=== PATIENT | female | born 1940 | race Caucasian/White ===

== ENCOUNTER 2020-02-20 12:20 | Outpatient (REF) | payer MEDICARE, OTHER, SELFPAY ==
[2020-02-20 14:02] LABS: Albumin Level 4.1 g/dL (3.5-5.0); Calcium 9.9 mg/dL (8.4-10.2)
[2020-02-20 14:30] LABS: Free T4 (Free Thyroxine) 1.21 ng/dL (0.71-1.85); Thyroid Stimulating Hormone 0.34 mIU/mL (0.32-4.0); Vitamin D 25-OH Total 48.7 ng/mL (>30)
[2020-02-21 22:52] LABS: Triiodothyronine T3 Total 104 ng/dL (76-181)
[2020-02-22 21:07] LABS: Calcium (PTHI) 9.9 mg/dL (8.6-10.4); PTHI 36 pg/mL (14-64)
[2020-02-29 21:56] LABS: N-Telopeptide 42 (see note); NTXCreaRU 55 mg/dL (20-275)
== END 2020-02-20 12:21 | disposition home or self-care (01) ==
LOC: HO.HMGCLDS 12:20
PROVIDERS: PCP Internal Medicine; Visit Provider Internal Medicine Endocrinology, Diabetes & Metabolism
DX: R79.89 Other specified abnormal findings of blood chemistry (principal); E05.20 Thyrotoxicosis with toxic multinodular goiter without thyrotoxic crisis or storm; Z87.81 Personal history of (healed) traumatic fracture
CPT/HCPCS: 82040; 82306; 82310; 82523; 83970; 84439; 84443; 84480

== ENCOUNTER 2020-03-06 10:59 | Outpatient (REF) | payer MEDICARE, OTHER, SELFPAY ==
[2020-03-06 13:53] LABS: MANUAL DIFF FLAG NO
[2020-03-06 14:03] LABS: Basophils Absolute Auto 0.1 X10*3/uL (0.0-0.2); Basophils Percent Auto 0.6 % (0-2); Eosinophils Absolute Auto 0.3 X10*3/uL (0.0-0.4); Eosinophils Percent Auto 3.9 % (0-4); Hematocrit 41.2 % (37-47); Hemoglobin 13.1 g/dl (12.0-16.0); Imm Gran Abs Auto 0.05 X10*3/uL (0.00-0.03); Imm Gran Pct Auto 0.6 % (0.0-0.4); Lymphocytes Absolute Auto 0.9 X10*3/uL (1.2-4.9); Lymphocytes Percent Auto 10.7 % (20-40); Mean Corpuscular HGB Conc 31.8 g/dl (31.0-35.0); Mean Corpuscular Hemoglobin 28.3 pg (27.0-33.0); Mean Platelet Volume 8.8 fL (9.4-12.3); Monocytes Absolute Auto 0.5 X10*3/uL (0.1-1.2); Monocytes Percent Auto 6.2 % (2-11); Neutrophils Absolute Auto 6.8 X10*3/uL (2.0-8.3); Platelet Count 360 X10*3/uL (160-400); Red Blood Count 4.63 X10*6/uL (4.20-5.50); Red Cell Distribution Width 13.9 % (11.0-16.0); White Blood Count 8.8 X10*3/uL (4.8-10.8)
[2020-03-06 14:33] LABS: Alanine Aminotransferase 10 U/L (0-31); Albumin Level 4.1 g/dL (3.5-5.0); Alkaline Phosphatase 76 U/L (39-117); Anion Gap 17 (12-20); Aspartate Amino Transferase 9 U/L (5-31); Bilirubin Total 0.3 mg/dL (0.0-1.0); Blood Urea Nitrogen 23 mg/dL (9-16); Calcium 9.9 mg/dL (8.4-10.2); Carbon Dioxide 23 mmol/L (22-29); Chloride 106 mmol/L (96-108); Cholesterol 153 mg/dL; Estimated Glomerular Filt Rate 45; Glucose Fasting 110 mg/dL (60-99); HDL Cholesterol 40 mg/dL; LDL Cholesterol Calculated 92 mg/dl; Potassium 4.5 mmol/l (3.3-5.1); Sodium 141 mmol/L (135-145); Total Protein 7.2 g/dL (6.5-8.0); Triglycerides 105 mg/dL
[2020-03-06 14:39] LABS: Glucose Urine UA NEG (NEG); Leukocyte Esterase Urine NEG (NEG); Nitrite Urine NEG (NEG); Urine Blood NEG (NEG); Urine Ketones NEG (NEG); Urine Protein NEG (NEG-TRACE)
[2020-03-06 14:42] LABS: Appearance Urine HAZY; Color Urine YELLOW; UACC Culture Trigger NO
[2020-03-06 14:43] LABS: Creatinine Urine 43.38 mg/dL; Microalbum/Creatinine Ratio Ur 161.3 ug/mg cr
[2020-03-06 14:49] LABS: Uric Acid 7.7 mg/dL (2.4-5.7)
[2020-03-06 14:55] LABS: Free T4 (Free Thyroxine) 1.11 ng/dL (0.71-1.85); Thyroid Stimulating Hormone 0.34 mIU/mL (0.32-4.0); Vitamin D 25-OH Total 45.3 ng/mL (>30)
[2020-03-06 15:13] LABS: Bacteria Urine 1+ /LPF; RBC Urine 0 /HPF (0); Squamous Epithelial Cell Urine 2+ /LPF; WBC Urine 0 /HPF (0-4)
[2020-03-06 15:14] LABS: Amorphous Sediment Urine 2+ /LPF
== END 2020-03-06 11:00 | disposition home or self-care (01) ==
LOC: HO.HMGCLDS 10:59
PROVIDERS: PCP Internal Medicine; Visit Provider Internal Medicine
DX: E11.22 Type 2 diabetes mellitus with diabetic chronic kidney disease (principal); I12.9 Hypertensive chronic kidney disease with stage 1 through stage 4 chronic kidney disease, or unspecified chronic kidney disease; N18.30 Chronic kidney disease, stage 3 unspecified; E78.5 Hyperlipidemia, unspecified; E83.42 Hypomagnesemia; M10.9 Gout, unspecified; E04.2 Nontoxic multinodular goiter; I49.1 Atrial premature depolarization; I47.1 Supraventricular tachycardia; E66.9 Obesity, unspecified
CPT/HCPCS: 36415; 80053; 80061; 81001; 81003; 82043; 82306; 83735; 84439; 84443; 84550; 85025

== ENCOUNTER 2020-04-15 16:54 | Outpatient (REF) | payer MEDICARE, OTHER, SELFPAY ==
--- NOTE | 2020-04-15 16:58 | MM_ITS ---
EXAMINATION: MM SCREENING DIGITAL BREAST TOMOSYNTHESIS, BILATERAL CLINICAL INFORMATION: Screening. Asymptomatic. The lifetime risk of breast cancer based on the Tyrer-Cuzick Model is 2%. COMPARISON: Mammography: 02/09/2019, 12/10/2017, 11/16/2016, 09/17/2015, 08/01/2014 TECHNIQUE: Digital breast tomosynthesis is performed in both the craniocaudal and mediolateral oblique views along with computer-aided detection (CAD). Synthesized 2D images are generated from the tomosynthesis. FINDINGS: There are scattered areas of fibroglandular density (ACR BI-RADS breast composition Category b). Parenchymal pattern is similar to prior studies. 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 Neither breast shows interval mass or architectural abnormality. There are scattered benign round and coarse and vascular calcifications again seen. Biopsy clip marker again noted mid upper outer left breast. No significant changes from prior studies. MM/MM tomosynthesis screening BI IMPRESSION: No significant changes from prior studies. ASSESSMENT: BI-RADS 2: Benign RECOMMENDATION: Routine annual mammography screening. This patient's information was entered into a reminder system with a target due date for their next mammogram.
== END 2020-04-15 16:55 | disposition home or self-care (01) ==
LOC: HO.MAMMO 16:54
PROVIDERS: PCP Internal Medicine; Visit Provider Internal Medicine
DX: Z12.31 Encounter for screening mammogram for malignant neoplasm of breast (principal)
CPT/HCPCS: 77063; 77067

== ENCOUNTER → 2020-05-29 13:27 | Outpatient (BNVA) | payer MEDICARE, OTHER, SELFPAY | PROVIDERS: PCP Internal Medicine; Visit Provider Internal Medicine | DX: J44.9 Chronic obstructive pulmonary disease, unspecified (principal); J30.9 Allergic rhinitis, unspecified | CPT/HCPCS: 99212 ==

== ENCOUNTER 2020-06-10 10:54 | Outpatient (REF) | payer MEDICARE, OTHER, SELFPAY ==
[2020-06-10 13:58] LABS: MANUAL DIFF FLAG NO
[2020-06-10 14:01] LABS: Basophils Absolute Auto 0.1 X10*3/uL (0.0-0.2); Basophils Percent Auto 0.8 % (0-2); Eosinophils Absolute Auto 0.4 X10*3/uL (0.0-0.4); Eosinophils Percent Auto 5.8 % (0-4); Hematocrit 40.1 % (37-47); Hemoglobin 12.7 g/dl (12.0-16.0); Imm Gran Abs Auto 0.02 X10*3/uL (0.00-0.03); Imm Gran Pct Auto 0.3 % (0.0-0.4); Lymphocytes Absolute Auto 0.8 X10*3/uL (1.2-4.9); Lymphocytes Percent Auto 11.9 % (20-40); Mean Corpuscular HGB Conc 31.7 g/dl (31.0-35.0); Mean Corpuscular Hemoglobin 27.7 pg (27.0-33.0); Mean Corpuscular Volume 87.4 fL (80-98); Mean Platelet Volume 8.7 fL (9.4-12.3); Monocytes Absolute Auto 0.6 X10*3/uL (0.1-1.2); Monocytes Percent Auto 8.8 % (2-11); Neutrophils Absolute Auto 5.1 X10*3/uL (2.0-8.3); Neutrophils Percent Auto 72.4 % (45-73); Platelet Count 429 X10*3/uL (160-400); Red Blood Count 4.59 X10*6/uL (4.20-5.50); Red Cell Distribution Width 14.3 % (11.0-16.0); White Blood Count 7.1 X10*3/uL (4.8-10.8)
[2020-06-10 14:14] LABS: Glucose Urine UA NEG (NEG); Leukocyte Esterase Urine NEG (NEG); Nitrite Urine NEG (NEG); PH 8.5 (5.0-8.0); Urine Blood NEG (NEG); Urine Ketones NEG (NEG)
[2020-06-10 14:21] LABS: Appearance Urine HAZY; Color Urine YELLOW; Urine Protein 1+ MG/DL (NEG-TRACE)
[2020-06-10 14:28] LABS: Amorphous Sediment Urine 1+ /LPF; Bacteria Urine 1+ /LPF; Mucus Urine 1+ /LPF; RBC Urine 0 /HPF (0); Squamous Epithelial Cell Urine 1+ /LPF; WBC Urine 0 /HPF (0-4)
[2020-06-10 14:39] LABS: Creatinine Urine 98.27 mg/dL; Microalbum/Creatinine Ratio Ur 215.7 ug/mg cr
[2020-06-10 14:41] LABS: Alanine Aminotransferase 10 U/L (0-31); Albumin Level 4.1 g/dL (3.5-5.0); Alkaline Phosphatase 76 U/L (39-117); Anion Gap 17 (12-20); Aspartate Amino Transferase 7 U/L (5-31); Bilirubin Total 0.4 mg/dL (0.0-1.0); Blood Urea Nitrogen 21 mg/dL (9-16); Carbon Dioxide 23 mmol/L (22-29); Chloride 104 mmol/L (96-108); Cholesterol 161 mg/dL; Estimated Glomerular Filt Rate 48; Glucose Fasting 116 mg/dL (60-99); HDL Cholesterol 36 mg/dL; LDL Cholesterol Calculated 103 mg/dl; Magnesium 1.9 mg/dL (1.6-2.6); Potassium 4.7 mmol/l (3.3-5.1); Sodium 139 mmol/L (135-145); Total Protein 7.2 g/dL (6.5-8.0); Triglycerides 112 mg/dL
[2020-06-10 14:46] LABS: Vitamin D 25-OH Total 42.5 ng/mL (>30)
[2020-06-10 14:53] LABS: Thyroid Stimulating Hormone 0.37 uIU/mL (0.32-4.0)
[2020-06-10 15:23] LABS: T4 Thyroxine 8.9 ug/dL (4.5-12.0)
[2020-06-11 13:57] LABS: Triiodothyronine T3 Total 113 ng/dL (76-181)
== END 2020-06-10 10:55 | disposition home or self-care (01) ==
LOC: HO.HMGCLDS 10:54
PROVIDERS: Absent Provider Internal Medicine Endocrinology, Diabetes & Metabolism; PCP Internal Medicine; Visit Provider Internal Medicine
DX: E05.20 Thyrotoxicosis with toxic multinodular goiter without thyrotoxic crisis or storm (principal); K21.9 Gastro-esophageal reflux disease without esophagitis; D64.9 Anemia, unspecified; I12.9 Hypertensive chronic kidney disease with stage 1 through stage 4 chronic kidney disease, or unspecified chronic kidney disease; E11.22 Type 2 diabetes mellitus with diabetic chronic kidney disease; N18.30 Chronic kidney disease, stage 3 unspecified; E78.00 Pure hypercholesterolemia, unspecified; E83.42 Hypomagnesemia; E55.9 Vitamin D deficiency, unspecified
CPT/HCPCS: 36415; 80053; 80061; 81001; 81003; 82043; 82306; 83735; 84436; 84443; 84480; 85025

== ENCOUNTER → 2020-06-12 11:32 | Outpatient (BNVA) | payer MEDICARE, OTHER, SELFPAY | PROVIDERS: PCP Internal Medicine; Visit Provider Internal Medicine Endocrinology, Diabetes & Metabolism | DX: Z13.89 Encounter for screening for other disorder (principal) | CPT/HCPCS: Q3014 ==

== ENCOUNTER 2020-06-17 12:38 | Outpatient (REF) | payer MEDICARE, OTHER, SELFPAY ==
--- NOTE | 2020-06-17 13:52 | MHC.AU.P13 ---
Adult Audiological Evaluation Date of Visit: 06/17/20 Reason for Appointment: History of hearing loss. Patient arrives to determine if there has been a change in hearing. Previous Hearing Test Results: At Dr. 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 Patient reports that she has been told in the past she has COPD, but her physician is now suspecting her breathing problems could be due to allergies/congestion. Hearing Instrument History- Right Ear: Candy Cutter Hand: [employer] Model: Immunomeelinkedü M50-R Serial Number: [id number] Battery Size: Rechargeable Repair Warranty: 05/14/2022 Loss and Damage Warranty: 05/14/2022 Dispensed By: [facility] Date of Fittin02/23/2019 Hearing Instrument History- Left Ear: Candy Cutter Hand: [employer] Model: Immunomeeo M50-R Serial Number: [id number] Battery Size: Rechargeable Warranty: 05/14/2022 Loss and Damage Warranty: 05/14/2022 Dispensed By: [facility] Date of Fittin02/23/2019 Otoscopy: Right Ear: Dry skin in canal Left Ear: Dry skin in canal Tympanometry: Tympanometry performed due to: History of allergies/congestion Right Ear: Non-compliant Middle Ear System (Type B) Left Ear: Negative Middle Ear Pressure (Type C) Hearing Evaluation: Right Ear: Description of Hearing: Moderate to severe mixed hearing loss Left Ear: Description of Hearing: Mild to profound mixed hearing loss Speech Recognition Threshold (SRT): Method Used: Recorded Lists Stimuli Used: Spondee Words Right Ear: 45 dBHL Left Ear: 45 dBHL Word Discrimination: Method: Recorded Lists Word Lists Used: NU-6 Right Ear: 96% at 85 dBHL Left Ear: 88% at 80 dBHL Most Comfortable Level (MCL): Right Ear: 85 dBHL Left Ear: 80 dBHL Aided Testing: Aided word discrimination is 100% at 55 dBHL in quiet and 88% at 55 dBHL in noise (+10 [id number] ratio) Comparison: Compared to most recent evaluation: Bone conduction thresholds are stable; however, air conduction thresholds have decreased in the right ear. Patient reports significant congestion today. We therefore cannot yet determine if this is a temporary shift due to congestion, or a permanent change. Recommendations: Audiological re-evaluation in one year. Patient reports that when the COVID-19 pandemic is under more control, she is considering going back to Dr. Watkins's office for allergy treatment. This is highly recommended, as it appears the congestion is negatively impacting her hearing. Hearing aid maintenance performed. Patient is pleased with how the hearing aids currently sound. No programming adjustments were made today, because it is likely the change in hearing in the right ear could be temporary and related to congestion. Patient did not want to activate the manual volume control on her hearing aids at this time. Diagnosis: Primary Diagnosis: H90.6 Mixed Hearing Loss, Bilateral Services Performed: Comprehensive Audiological Evaluation (CPT 58408), Tympanometry (CPT 85525) Signature: Provider: Ta Sadler, CCC-A
== END 2020-06-17 12:39 | disposition home or self-care (01) ==
LOC: HO.SH 12:38
PROVIDERS: Visit Provider Internal Medicine
DX: H90.6 Mixed conductive and sensorineural hearing loss, bilateral (principal)
CPT/HCPCS: 92557; 92567

== ENCOUNTER 2020-09-18 10:38 | Outpatient (REF) | payer MEDICARE, OTHER, SELFPAY ==
[2020-09-18 13:57] LABS: MANUAL DIFF FLAG NO
[2020-09-18 14:09] LABS: Basophils Percent Auto 0.3 % (0-2); Eosinophils Absolute Auto 0.4 X10*3/uL (0.0-0.4); Eosinophils Percent Auto 5.2 % (0-4); Glucose Urine UA NEG (NEG); Hematocrit 31.7 % (37-47); Hemoglobin 9.7 g/dl (12.0-16.0); Imm Gran Abs Auto 0.04 X10*3/uL (0.00-0.03); Imm Gran Pct Auto 0.5 % (0.0-0.4); Leukocyte Esterase Urine NEG (NEG); Lymphocytes Absolute Auto 0.8 X10*3/uL (1.2-4.9); Lymphocytes Percent Auto 9.5 % (20-40); Mean Corpuscular HGB Conc 30.6 g/dl (31.0-35.0); Mean Corpuscular Hemoglobin 27.2 pg (27.0-33.0); Mean Corpuscular Volume 88.8 fL (80-98); Mean Platelet Volume 8.7 fL (9.4-12.3); Monocytes Absolute Auto 0.6 X10*3/uL (0.1-1.2); Monocytes Percent Auto 7.9 % (2-11); Neutrophils Percent Auto 76.6 % (45-73); Nitrite Urine NEG (NEG); Platelet Count 331 X10*3/uL (160-400); Red Blood Count 3.57 X10*6/uL (4.20-5.50); Red Cell Distribution Width 14.6 % (11.0-16.0); Urine Blood NEG (NEG); Urine Ketones NEG (NEG); Urine Protein TRACE MG/DL (NEG-TRACE); White Blood Count 7.9 X10*3/uL (4.8-10.8)
[2020-09-18 14:14] LABS: Appearance Urine HAZY; Color Urine YELLOW
[2020-09-18 14:29] LABS: Alanine Aminotransferase 8 U/L (0-31); Alkaline Phosphatase 83 U/L (39-117); Anion Gap 13 (12-20); Aspartate Amino Transferase 7 U/L (5-31); Bilirubin Total 0.5 mg/dL (0.0-1.0); Blood Urea Nitrogen 17 mg/dL (9-16); Carbon Dioxide 25 mmol/L (22-29); Chloride 108 mmol/L (96-108); Cholesterol 153 mg/dL; Estimated Glomerular Filt Rate 51; Glucose Fasting 111 mg/dL (60-99); HDL Cholesterol 34 mg/dL; Iron 37 mcg/dL (30-160); LDL Cholesterol Calculated 84 mg/dl; Magnesium 1.6 mg/dL (1.6-2.6); Percent Iron Saturation 11 % (15-50); Potassium 4.3 mmol/L (3.3-5.1); Sodium 142 mmol/L (135-145); Total Iron Binding Capacity 331 mcg/dL (228-428); Total Protein 6.7 g/dL (6.5-8.0); Triglycerides 175 mg/dL; Unsaturated Iron Binding 294 ug/dL; Uric Acid 6.3 mg/dL (2.4-5.7)
[2020-09-18 14:41] LABS: Creatinine Urine 103.14 mg/dL; Microalbum/Creatinine Ratio Ur 120.2 ug/mg cr
[2020-09-18 14:50] LABS: TSH reflex Free T4 0.32 uIU/mL (0.32-4.0)
== END 2020-09-18 10:39 | disposition home or self-care (01) ==
LOC: HO.HMGCLDS 10:38
PROVIDERS: PCP Internal Medicine; Visit Provider Internal Medicine
DX: D64.9 Anemia, unspecified (principal); I12.9 Hypertensive chronic kidney disease with stage 1 through stage 4 chronic kidney disease, or unspecified chronic kidney disease; N18.31 Chronic kidney disease, stage 3a; E11.22 Type 2 diabetes mellitus with diabetic chronic kidney disease; E11.21 Type 2 diabetes mellitus with diabetic nephropathy; E04.2 Nontoxic multinodular goiter; E66.9 Obesity, unspecified; E78.00 Pure hypercholesterolemia, unspecified; I47.1 Supraventricular tachycardia; E83.42 Hypomagnesemia; M10.9 Gout, unspecified
CPT/HCPCS: 36415; 80053; 80061; 81003; 82043; 82306; 83540; 83735; 84443; 84550; 85025

== ENCOUNTER 2020-11-20 14:24 | Outpatient (REF) | payer MEDICARE, OTHER, SELFPAY ==
--- NOTE | ~2020-11-20 | US_ITS ---
EXAMINATION: US THYROID CLINICAL INFORMATION: Nodular goiter. Thyrotoxicosis. COMPARISON: Ultrasound thyroid soft tissue neck 07/03/2019. TECHNIQUE: Linear transducer dean-scale and color Doppler examination with attention to the region of the thyroid. FINDINGS: SIZE: Measurements of the thyroid lobes and nodules are given in sagittal, anteroposterior and transverse dimensions respectively. Right Thyroid Lobe: 4.84 x 1.84 x 1.71 cm, volume 7.97 mL. Previously 5.10 x 1.78 x 1.74 cm, volume 8.25 mL. Parenchyma: The gland echotexture is heterogeneous. Thyroid vascularity is normal. Left Thyroid Lobe: 4.70 x 1.64 x 1.42 cm, volume 5.74 mL. Previously 4.76 x 1.68 x 1.55 cm, volume 6.48 mL. Parenchyma: The gland echotexture is heterogeneous. Thyroid vascularity is normal. Isthmus: 0.60 cm in maximum AP dimension. Previously 0.65 cm. Estimated total number of nodules greater than or equal to 1 cm: 3. The 5 largest nodules are described as follows: 1. Location: Isthmus. Size: 0.70 x 0.50 x 1.1 cm, volume 0.20 mL. Previously: 0.70 x 0.40 0 x 0.78 cm, volume 0.11 mL. Nodule characteristics: Composition: Spongiform (0). Echogenicity: Shape: Margins: Echogenic Foci: ACR TI-RADS total points: 0 Previous: Not applicable. ACR TI-RADS category: 1 Previous: Not applicable Significant change in size (>/= 20% in 2 dimensions and minimal increase of 2 mm or 50% or greater increase in volume): Change in features: Change in ACR TI-RADS risk category: 2. Location: Right mid. Size: 1.1 x 1.3 x 1.2 cm, volume 0.90 mL. Previously: 0.74 x 0.70 x 0.80 cm, volume 0.22 mL. Nodule characteristics: Composition: Cystic(0). Echogenicity: Shape: Margins: Echogenic Foci: ACR TI-RADS total points: 0 Previous: Not applicable ACR TI-RADS category: 1 Previous: Not applicable Significant change in size (>/= 20% in 2 dimensions and minimal increase of 2 mm or 50% or greater increase in volume): Change in features: Change in ACR TI-RADS risk category: 3. Location: Right lower. Size: 1.4 x 1.3 x 1.5 cm, volume 1.4 mL. Previously: 1.3 x 1.3 x 1.3 cm, volume 1.1 mL. Nodule characteristics: Composition: Solid (2). Echogenicity: Hyperechoic (1). Shape: Not taller than wide (0). Margins: Smooth (0). Echogenic Foci: None (0). ACR TI-RADS total points: 3 Previous: Not applicable ACR TI-RADS category: 3 Previous: Not applicable Significant change in size (>/= 20% in 2 dimensions and minimal increase of 2 mm or 50% or greater increase in volume): Change in features: Change in ACR TI-RADS risk category: 4. Location: Right lower. Size: 1.2 x 1.3 x 1.2 cm, volume 1.0 mL. Previously: 1.5 x 1.4 x 1.3 cm, volume 0.50 mL. Nodule characteristics: Composition: Solid (2). Echogenicity: Hypoechoic (2) Shape: Not taller than wide Margins: Smooth (0). Echogenic Foci: None (0). ACR TI-RADS total points: 4 Previous: Not applicable ACR TI-RADS category: 4 Previous: Not applicable Significant change in size (>/= 20% in 2 dimensions and minimal increase of 2 mm or 50% or greater increase in volume): Change in features: Change in ACR TI-RADS risk category: 5. Location: Left lower. Size: 0.71 x 0.63 x 0.62 cm, volume 0.15 mL. Previously: Not seen previously Nodule characteristics: Composition: Cystic(0). Echogenicity: Shape: Margins: Echogenic Foci: ACR TI-RADS total points: 0 Previous: Not applicable ACR TI-RADS category: 1 Previous: Not applicable NODES: No lymphadenopathy is seen in the tissue surrounding the thyroid gland. US/US thyroid IMPRESSION: Normal-sized heterogeneous thyroid gland with multiple bilateral thyroid nodules. There is a newly appreciated left inferior thyroid nodule. There is interval increase in a cystic nodule in the mid right lobe. Otherwise bilateral thyroid nodules do not appear appreciably changed. ACR TI-RADS RECOMMENDATION REFERENCE: Ultrasound-guided fine-needle aspiration, followup ultrasound, no further follow up. * TR1 (0 point) and TR 2 (2 points): No FNA or follow up * TR3 (3 points): FNA if more than or equal to 2.5 cm in maximum dimension, followup ultrasound in 1, 3 and 5 years if 1.5 to 2.4 cm in maximum dimension. * TR4 (4-6 points): FNA if more than or equal to 1.5 cm in maximum dimension, followup ultrasound in 1, 2, 3 and 5 years if 1 to 1.4 cm in maximum dimension. * TR5 (more than or equal to 7 points): FNA if more than or equal to 1 cm in maximum dimension, followup ultrasound every year for 5 years if 0.5 to 0.9 cm in maximum dimension. * TR3, TR4 or TR5 nodules that are below the size threshold for follow up receive no follow up.
== END 2020-11-20 14:25 | disposition home or self-care (01) ==
LOC: HO.HMGCX 14:24
PROVIDERS: PCP Internal Medicine; Visit Provider Internal Medicine Endocrinology, Diabetes & Metabolism
DX: E05.20 Thyrotoxicosis with toxic multinodular goiter without thyrotoxic crisis or storm (principal)
CPT/HCPCS: 76536

== ENCOUNTER → 2020-11-26 13:30 | Outpatient (BNVA) | payer MEDICARE, OTHER, SELFPAY | PROVIDERS: PCP Internal Medicine; Visit Provider Internal Medicine | DX: Z13.89 Encounter for screening for other disorder (principal) | CPT/HCPCS: 99212; Q3014 ==

== ENCOUNTER 2021-01-27 10:57 | Outpatient (REF) | payer MEDICARE, OTHER, SELFPAY ==
[2021-01-27 13:59] LABS: MANUAL DIFF FLAG NO
[2021-01-27 14:07] LABS: Appearance Urine CLEAR; Basophils Percent Auto 0.4 % (0-2); Color Urine YELLOW; Eosinophils Absolute Auto 0.4 X10*3/uL (0.0-0.4); Eosinophils Percent Auto 5.8 % (0-4); Glucose Urine UA NEG (NEG); Hematocrit 28.2 % (37-47); Hemoglobin 7.7 g/dl (12.0-16.0); Imm Gran Abs Auto 0.03 X10*3/uL (0.00-0.03); Imm Gran Pct Auto 0.4 % (0.0-0.4); Leukocyte Esterase Urine 1+ (NEG); Lymphocytes Absolute Auto 0.7 X10*3/uL (1.2-4.9); Lymphocytes Percent Auto 8.9 % (20-40); Mean Corpuscular HGB Conc 27.3 g/dl (31.0-35.0); Mean Corpuscular Hemoglobin 21.6 pg (27.0-33.0); Mean Platelet Volume 8.6 fL (9.4-12.3); Monocytes Absolute Auto 0.6 X10*3/uL (0.1-1.2); Neutrophils Absolute Auto 5.8 X10*3/uL (2.0-8.3); Neutrophils Percent Auto 76.5 % (45-73); Nitrite Urine NEG (NEG); Platelet Count 415 X10*3/uL (160-400); Red Blood Count 3.57 X10*6/uL (4.20-5.50); Red Cell Distribution Width 17.2 % (11.0-16.0); Specific Gravity - Urine 1.015 (1.005-1.025); UACC Culture Trigger YES; Urine Blood NEG (NEG); Urine Ketones NEG (NEG); Urine Protein NEG (NEG-TRACE); White Blood Count 7.6 X10*3/uL (4.8-10.8)
[2021-01-27 14:24] LABS: Alanine Aminotransferase 6 U/L (0-31); Albumin Level 4.1 g/dL (3.5-5.0); Alkaline Phosphatase 71 U/L (39-117); Anion Gap 16 (12-20); Aspartate Amino Transferase 8 U/L (5-31); Bilirubin Total 0.4 mg/dL (0.0-1.0); Blood Urea Nitrogen 21 mg/dL (9-16); Calcium 10.3 mg/dL (8.4-10.2); Carbon Dioxide 22 mmol/L (22-29); Chloride 108 mmol/L (96-108); Cholesterol 144 mg/dL; Estimated Glomerular Filt Rate 46; Glucose Fasting 107 mg/dL (60-99); HDL Cholesterol 35 mg/dL; Iron 27 mcg/dL (30-160); LDL Cholesterol Calculated 90 mg/dl; Percent Iron Saturation 7 % (15-50); Potassium 4.8 mmol/L (3.3-5.1); Sodium 141 mmol/L (135-145); Total Iron Binding Capacity 376 mcg/dL (228-428); Total Protein 6.7 g/dL (6.5-8.0); Triglycerides 96 mg/dL; Unsaturated Iron Binding 349 ug/dL
[2021-01-27 14:26] LABS: Estimated Average Glucose 91 mg/dL; Hemoglobin A1c % 4.8 %
[2021-01-27 14:28] LABS: Bacteria Urine 2+ /LPF; RBC Urine 0-2 /HPF (0); Squamous Epithelial Cell Urine 3+ /LPF
[2021-01-27 14:31] LABS: Creatinine Urine 95.45 mg/dL; Microalbum/Creatinine Ratio Ur 47.1 ug/mg cr
[2021-01-27 14:57] LABS: Folate 11.7 ng/mL (> or = 4.0); Vitamin B12 > 2000 pg/mL (200-900)
[2021-01-28 09:40] LABS: Erythropoietin (EPO) 65.5 mIU/mL (2.6-18.5)
== END 2021-01-27 10:58 | disposition home or self-care (01) ==
LOC: HO.HMGCLDS 10:57
PROVIDERS: PCP Internal Medicine; Visit Provider Internal Medicine
DX: I12.9 Hypertensive chronic kidney disease with stage 1 through stage 4 chronic kidney disease, or unspecified chronic kidney disease (principal); E11.22 Type 2 diabetes mellitus with diabetic chronic kidney disease; N18.31 Chronic kidney disease, stage 3a; D63.1 Anemia in chronic kidney disease; E78.00 Pure hypercholesterolemia, unspecified; E11.21 Type 2 diabetes mellitus with diabetic nephropathy; K21.9 Gastro-esophageal reflux disease without esophagitis; I73.9 Peripheral vascular disease, unspecified
CPT/HCPCS: 36415; 80053; 80061; 81001; 81003; 82043; 82607; 82668; 82746; 83036; 83540; 85025; 87086

== ENCOUNTER 2021-02-04 08:53 | Outpatient (REF) | payer MEDICARE, OTHER, SELFPAY | END 2021-02-04 08:54 | disposition home or self-care (01) | LOC: HO.MDS 08:53 | PROVIDERS: Visit Provider Nurse Practitioner Family | DX: D64.9 Anemia, unspecified (principal) | CPT/HCPCS: 36430; 86850; 86900; 86901; 86923; P9016 ==

== ENCOUNTER 2021-03-03 08:00 | Outpatient (REF) | payer MEDICARE, OTHER, SELFPAY | END 2021-03-03 08:01 | disposition home or self-care (01) | LOC: HO.MDS 08:00 | PROVIDERS: PCP Internal Medicine; Visit Provider Internal Medicine | DX: D50.9 Iron deficiency anemia, unspecified (principal) | CPT/HCPCS: 96365; 96366; J1200; J1750; Q0163 ==

== ENCOUNTER 2021-03-11 11:43 | Outpatient (REF) | payer MEDICARE, OTHER, SELFPAY ==
[2021-03-11 13:44] LABS: MANUAL DIFF FLAG NO
[2021-03-11 13:55] LABS: Basophils Percent Auto 0.3 % (0-2); Eosinophils Absolute Auto 0.3 X10*3/uL (0.0-0.4); Eosinophils Percent Auto 3.7 % (0-4); Hematocrit 29.9 % (37-47); Hemoglobin 8.8 g/dl (12.0-16.0); Imm Gran Abs Auto 0.06 X10*3/uL (0.00-0.03); Imm Gran Pct Auto 0.7 % (0.0-0.4); Lymphocytes Absolute Auto 0.7 X10*3/uL (1.2-4.9); Lymphocytes Percent Auto 7.4 % (20-40); Mean Corpuscular HGB Conc 29.4 g/dl (31.0-35.0); Mean Corpuscular Hemoglobin 25.7 pg (27.0-33.0); Mean Corpuscular Volume 87.2 fL (80-98); Mean Platelet Volume 8.6 fL (9.4-12.3); Monocytes Absolute Auto 0.7 X10*3/uL (0.1-1.2); Monocytes Percent Auto 7.9 % (2-11); Neutrophils Absolute Auto 7.1 X10*3/uL (2.0-8.3); Platelet Count 406 X10*3/uL (160-400); Red Blood Count 3.43 X10*6/uL (4.20-5.50); Red Cell Distribution Width 22.9 % (11.0-16.0); White Blood Count 8.9 X10*3/uL (4.8-10.8)
== END 2021-03-11 11:44 | disposition home or self-care (01) ==
LOC: HO.10HDL 11:43
PROVIDERS: Visit Provider Internal Medicine
DX: D50.9 Iron deficiency anemia, unspecified (principal)
CPT/HCPCS: 36415; 85025

== ENCOUNTER 2021-03-14 | Outpatient (REF) | payer MEDICARE, OTHER, SELFPAY ==
[2021-03-19 14:07] LABS: OBS1 POSITIVE (NEGATIVE); OBS2 POSITIVE (NEGATIVE)
[2021-03-19 14:08] LABS: OBS Int Ctl Valid YES; OBS3 POSITIVE (NEGATIVE)
== END 2021-03-14 00:01 | disposition home or self-care (01) ==
LOC: HO.LNP
PROVIDERS: Visit Provider Internal Medicine
DX: D50.9 Iron deficiency anemia, unspecified (principal)
CPT/HCPCS: 82270

== ENCOUNTER → 2021-04-01 13:12 | Outpatient (BNVA) | payer MEDICARE, OTHER, SELFPAY | PROVIDERS: PCP Internal Medicine; Visit Provider Internal Medicine | DX: J44.9 Chronic obstructive pulmonary disease, unspecified (principal); J30.9 Allergic rhinitis, unspecified; I12.9 Hypertensive chronic kidney disease with stage 1 through stage 4 chronic kidney disease, or unspecified chronic kidney disease; N18.30 Chronic kidney disease, stage 3 unspecified; E83.42 Hypomagnesemia; M85.80 Other specified disorders of bone density and structure, unspecified site; F41.8 Other specified anxiety disorders; Z87.891 Personal history of nicotine dependence; Z82.49 Family history of ischemic heart disease and other diseases of the circulatory system; Z88.0 Allergy status to penicillin; Z91.041 Radiographic dye allergy status; Z79.84 Long term (current) use of oral hypoglycemic drugs; Z79.899 Other long term (current) drug therapy | CPT/HCPCS: 99212 ==

== ENCOUNTER 2021-04-03 11:19 | Outpatient (REF) | payer MEDICARE, OTHER, SELFPAY ==
[2021-04-03 13:45] LABS: MANUAL DIFF FLAG NO
[2021-04-03 13:58] LABS: Basophils Percent Auto 0.7 % (0-2); Eosinophils Absolute Auto 0.3 X10*3/uL (0.0-0.4); Eosinophils Percent Auto 4.9 % (0-4); Hematocrit 28.8 % (37.0-47.0); Hemoglobin 8.5 g/dl (12.0-16.0); Imm Gran Abs Auto 0.03 X10*3/uL (0.00-0.03); Imm Gran Pct Auto 0.5 % (0.0-0.4); Lymphocytes Absolute Auto 0.7 X10*3/uL (1.2-4.9); Lymphocytes Percent Auto 11.4 % (20-40); Mean Corpuscular HGB Conc 29.5 g/dl (31.0-35.0); Mean Corpuscular Hemoglobin 26.6 pg (27.0-33.0); Mean Platelet Volume 8.5 fL (9.4-12.3); Monocytes Absolute Auto 0.6 X10*3/uL (0.1-1.2); Monocytes Percent Auto 9.2 % (2-11); Neutrophils Absolute Auto 4.4 x10*3/uL (2.0-8.3); Neutrophils Percent Auto 73.3 % (45-73); Platelet Count 391 X10*3/uL (160-400); Red Cell Distribution Width 19.1 % (11.0-16.0)
[2021-04-03 14:03] LABS: Appearance Urine CLEAR; Color Urine YELLOW; Glucose Urine UA NEG (NEG); Leukocyte Esterase Urine 1+ (NEG); Nitrite Urine NEG (NEG); Specific Gravity - Urine 1.015 (1.005-1.025); UACC Culture Trigger YES; Urine Blood 1+ (NEG); Urine Ketones NEG (NEG); Urine Protein NEG (NEG-TRACE)
[2021-04-03 14:23] LABS: Squamous Epithelial Cell Urine 2+ /LPF
[2021-04-03 14:24] LABS: Bacteria Urine 2+ /LPF
== END 2021-04-03 11:20 | disposition home or self-care (01) ==
LOC: HO.HMGCLDS 11:19
PROVIDERS: PCP Internal Medicine; Visit Provider Nurse Practitioner Family
DX: D64.9 Anemia, unspecified (principal); I10 Essential (primary) hypertension
CPT/HCPCS: 36415; 81001; 81003; 85025; 87086

== ENCOUNTER 2021-04-22 16:04 | Outpatient (REF) | payer MEDICARE, OTHER, SELFPAY ==
--- NOTE | ~2021-04-22 | MM_ITS ---
EXAMINATION: MM SCREENING DIGITAL BREAST TOMOSYNTHESIS, BILATERAL CLINICAL INFORMATION: Screening. Asymptomatic. The lifetime risk of breast cancer based on the Tyrer-Cuzick Model is 1.1%. COMPARISON: Mammography: 04/15/2020 and studies dating back to 07/31/2011. TECHNIQUE: Digital breast tomosynthesis is performed in both the craniocaudal and mediolateral oblique views along with computer-aided detection (CAD). Synthesized 2D images are generated from the tomosynthesis. FINDINGS: There are scattered areas of fibroglandular density (ACR BI-RADS breast composition Category b). There is a stable parenchymal pattern within the left breast with large chest wall lipoma again seen. Within the right breast, there is noted be architecture distortion from scar and surgery within the upper outer aspect. On craniocaudal view only about the medial aspect of the breast, there is a region of question architectural distortion 4 cm from the nipple which is more prominent than on prior studies and for which spot compression view is recommended. This may represent superposition of fibroglandular tissue. I do not see a correlating abnormality on mediolateral oblique projection. MM/MM tomosynthesis screening BI IMPRESSION: Question increase in region of architectural distortion medial aspect of the right breast for which further evaluation with spot compression view and possible ultrasound is recommended. ASSESSMENT: BI-RADS 0: Incomplete - Need Additional Imaging Evaluation RECOMMENDATION: 1. Additional views of the right breast. 2. Targeted ultrasound if warranted after review of the additional views. 3. Radiology department staff will contact the patient for additional imaging. This patient's information was entered into a reminder system with a target due date for their next mammogram.
== END 2021-04-22 16:05 | disposition home or self-care (01) ==
LOC: HO.MAMMO 16:04
PROVIDERS: Visit Provider Internal Medicine
DX: Z12.31 Encounter for screening mammogram for malignant neoplasm of breast (principal)
CPT/HCPCS: 77063; 77067

== ENCOUNTER 2021-04-29 10:21 | Outpatient (REF) | payer MEDICARE, OTHER, SELFPAY ==
--- NOTE | ~2021-04-29 | MM_ITS ---
EXAMINATION: MM DIAGNOSTIC DIGITAL BREAST TOMOSYNTHESIS, RIGHT CLINICAL INFORMATION: Recall from screening for question of architectural changes mid medial right breast versus superimposed fibroglandular tissue, limited to CC view. COMPARISON: Mammography: 04/22/2021, 04/15/2020, 02/09/2019 TECHNIQUE: Digital breast tomosynthesis is performed. 2D images are generated from the tomosynthesis. The following views are obtained: Right CC, spot right CC. FINDINGS: There are scattered areas of fibroglandular density (ACR BI-RADS breast composition Category b). The additional views show no architectural abnormality. There is no developing or asymmetric density or mass. Results are discussed with the patient at time of visit. MM/MM tomosynthesis added views R IMPRESSION: Additional views show no architectural abnormality or asymmetric density. ASSESSMENT: BI-RADS 1: Negative RECOMMENDATION: Routine annual mammography screening. This patient's information was entered into a reminder system with a target due date for their next mammogram.
== END 2021-04-29 10:22 | disposition home or self-care (01) ==
LOC: HO.MAMMO 10:21
PROVIDERS: Visit Provider Internal Medicine
DX: N64.89 Other specified disorders of breast (principal)
CPT/HCPCS: 77061; 77065

== ENCOUNTER 2021-05-22 12:11 | Outpatient (REF) | payer MEDICARE, OTHER, SELFPAY ==
[2021-05-22 14:00] LABS: MANUAL DIFF FLAG NO
[2021-05-22 14:05] LABS: Basophils Absolute Auto 0.1 X10*3/uL (0.0-0.2); Basophils Percent Auto 0.6 % (0-2); Eosinophils Absolute Auto 0.4 X10*3/uL (0.0-0.4); Eosinophils Percent Auto 4.1 % (0-4); Hemoglobin 11.3 g/dl (12.0-16.0); Imm Gran Abs Auto 0.03 X10*3/uL (0.00-0.03); Imm Gran Pct Auto 0.3 % (0.0-0.4); Lymphocytes Absolute Auto 0.8 X10*3/uL (1.2-4.9); Mean Corpuscular HGB Conc 29.7 g/dl (31.0-35.0); Mean Corpuscular Hemoglobin 25.5 pg (27.0-33.0); Mean Corpuscular Volume 85.8 fL (80.0-98.0); Mean Platelet Volume 8.7 fL (9.4-12.3); Monocytes Absolute Auto 0.7 X10*3/uL (0.1-1.2); Monocytes Percent Auto 7.4 % (2-11); Neutrophils Absolute Auto 7.1 x10*3/uL (2.0-8.3); Neutrophils Percent Auto 78.6 % (45-73); Platelet Count 482 X10*3/uL (160-400); Red Blood Count 4.43 X10*6/uL (4.20-5.50); Red Cell Distribution Width 15.6 % (11.0-16.0); White Blood Count 9.1 X10*3/uL (4.8-10.8)
[2021-05-22 14:22] LABS: Iron 106 mcg/dL (30-160); Percent Iron Saturation 31 % (15-50); Total Iron Binding Capacity 338 mcg/dL (228-428); Unsaturated Iron Binding 232 ug/dL
[2021-05-22 14:48] LABS: Ferritin 46 ng/mL (10-250)
== END 2021-05-22 12:12 | disposition home or self-care (01) ==
LOC: HO.HMGCLDS 12:11
PROVIDERS: PCP Internal Medicine; Visit Provider Internal Medicine
DX: D50.0 Iron deficiency anemia secondary to blood loss (chronic) (principal)
CPT/HCPCS: 36415; 82728; 83540; 85025

== ENCOUNTER 2021-06-30 13:10 | Outpatient (REF) | payer MEDICARE, OTHER, SELFPAY ==
[2021-06-30 16:36] LABS: MANUAL DIFF FLAG NO
[2021-06-30 16:43] LABS: Basophils Absolute Auto 0.1 X10*3/uL (0.0-0.2); Basophils Percent Auto 0.6 % (0-2); Eosinophils Absolute Auto 0.5 X10*3/uL (0.0-0.4); Eosinophils Percent Auto 6.8 % (0-4); Hematocrit 41.5 % (37.0-47.0); Hemoglobin 12.6 g/dl (12.0-16.0); Imm Gran Abs Auto 0.02 X10*3/uL (0.00-0.03); Imm Gran Pct Auto 0.3 % (0.0-0.4); Lymphocytes Absolute Auto 0.7 X10*3/uL (1.2-4.9); Lymphocytes Percent Auto 8.4 % (20-40); Mean Corpuscular HGB Conc 30.4 g/dl (31.0-35.0); Mean Corpuscular Hemoglobin 25.8 pg (27.0-33.0); Mean Platelet Volume 9.3 fL (9.4-12.3); Monocytes Absolute Auto 0.6 X10*3/uL (0.1-1.2); Monocytes Percent Auto 8.1 % (2-11); Neutrophils Absolute Auto 5.9 x10*3/uL (2.0-8.3); Neutrophils Percent Auto 75.8 % (45-73); Platelet Count 373 X10*3/uL (160-400); Red Blood Count 4.88 X10*6/uL (4.20-5.50); Red Cell Distribution Width 14.8 % (11.0-16.0); White Blood Count 7.8 X10*3/uL (4.8-10.8)
[2021-06-30 16:47] LABS: Iron 125 mcg/dL (30-160); Percent Iron Saturation 35 % (15-50); Total Iron Binding Capacity 355 mcg/dL (228-428); Unsaturated Iron Binding 230 ug/dL
[2021-06-30 17:13] LABS: Ferritin 38 ng/mL (10-250)
== END 2021-06-30 13:11 | disposition home or self-care (01) ==
LOC: HO.HMGCLDS 13:10
PROVIDERS: Visit Provider Internal Medicine
DX: D50.0 Iron deficiency anemia secondary to blood loss (chronic) (principal)
CPT/HCPCS: 36415; 82728; 83540; 85025

== ENCOUNTER 2021-07-31 12:50 | Outpatient (REF) | payer MEDICARE, OTHER, SELFPAY ==
--- NOTE | 2021-07-31 13:08 | MHC.AU.AHA ---
Adult Audiological Evaluation Date of Visit: 07/31/20 Reason for Appointment: Audiological re-evaluation to determine if there has been a change in Alice's hearing sensitivity. She notes her hearing seems to gradually be decreasing. She has a known bilateral, mixed hearing loss and uses hearing aids binaurally. She denies any significant changes to her medical history since her last visit. [place] Test [place] [facility] [place] Moderate to severe mixed hearing loss in the right ear. Mild to profound mixed hearing loss in the left ear. Bilateral middle-ear dysfunction. Dr. Watkins's Office, 01/09/2019- Mild to severe mixed hearing loss bilaterally. Medical History: Medical History: Diabetes, Heart Problems, High Blood Pressure, Scarlet Fever, Vascular Problems Medical History: Constant sinus congestion. Patient reports that she has been told in the past she has COPD, but her physician is now suspecting her breathing problems could be due to allergies/congestion. Allergies: Iodinated contrast media, penicillin Medication List: See EMR Hearing Instrument History- Right Ear: Ballast Regulator Operator: [employer] Model: Cobiscorpeo M50-R Serial Number: [id number] Battery Size: Rechargeable Repair Warranty: 05/14/2022 Loss and Damage Warranty: 05/14/2022 Dispensed By: [facility] Date of Fittin02/23/2019 Hearing Instrument History- Left Ear: Ballast Regulator Operator: [employer] Model: Audeo M50-R Serial Number: [id number] Battery Size: Rechargeable Warranty: 05/14/2022 Loss and Damage Warranty: 05/14/2022 Dispensed By: [facility] Date of Fittin02/23/2019 Otoscopy: Right Ear: Unremarkable Left Ear: Unremarkable Tympanometry: Tympanometry performed due to: History of mixed hearing loss Right Ear: Negative Middle Ear Pressure (Type C) Left Ear: Negative Middle Ear Pressure (Type C) Hearing Evaluation: Transducer(s) Used: Insert Earphones, Bone Conduction Method: Conventional Audiometry Stimuli Used: Pure Tones Right Ear: Description of Hearing: Mild sloping to moderately-severe mixed hearing loss 250-8000 Hz. Left Ear: Description of Hearing: Mild sloping to severe mixed hearing loss 250-8000 Hz. Speech Recognition Threshold (SRT): Method Used: Monitored Live Voice Stimuli Used: Spondee Words Right Ear: 45 dBHL Left Ear: 45 dBHL Word Discrimination: Method: Recorded Lists Word Lists Used: NU-6 Right Ear: 96% at 85 dBHL Left Ear: 88% at 80 dBHL Most Comfortable Level (MCL): Right Ear: 85 dBHL Left Ear: 80 dBHL Comparison: Compared to most recent evaluation: Air-conduction thresholds in the right ear have improved by 20 dBHL at 250 Hz, 15 dBHL at 500 Hz, and 10 dBHL at 3000 & 4000 Hz. Middle-ear function has improved in the right ear, from Type B tympanometry (flat, non-compliant) in 2020 to Type C tympanometry (negative middle-ear pressure, normal compliance) today. Left ear has remained stable. Recommendations: Audiological re-evaluation in one year, or sooner if changes are noted. Hearing aid maintenance performed today. Hearing aid(s) reprogrammed with updated test results. Hearing aids are in good working condition. Emphasized importance of consistent use of amplification. Diagnosis: Primary Diagnosis: H90.3 Bilateral Sensorineural Hearing Loss Secondary Diagnosis: H69.93 Unspecified Eustachian Tube Dysfunction, Bilateral Services Performed: Comprehensive Audiological Evaluation (CPT 69891) Tympanometry (CPT 98129) Signature: Provider: Ta Nicole, CCC-A
== END 2021-07-31 12:51 | disposition home or self-care (01) ==
LOC: HO.SH 12:50
PROVIDERS: Visit Provider Internal Medicine
DX: Z01.118 Encounter for examination of ears and hearing with other abnormal findings (principal); H90.6 Mixed conductive and sensorineural hearing loss, bilateral; H69.93 Unspecified Eustachian tube disorder, bilateral
CPT/HCPCS: 92557; 92567

== ENCOUNTER 2021-09-03 10:31 | Outpatient (REF) | payer MEDICARE, OTHER, SELFPAY ==
[2021-09-03 13:49] LABS: MANUAL DIFF FLAG NO
[2021-09-03 13:54] LABS: Basophils Absolute Auto 0.1 X10*3/uL (0.0-0.2); Basophils Percent Auto 0.7 % (0-2); Eosinophils Absolute Auto 0.5 X10*3/uL (0.0-0.4); Eosinophils Percent Auto 6.7 % (0-4); Hematocrit 40.5 % (37.0-47.0); Hemoglobin 12.4 g/dl (12.0-16.0); Imm Gran Abs Auto 0.03 X10*3/uL (0.00-0.03); Imm Gran Pct Auto 0.4 % (0.0-0.4); Lymphocytes Absolute Auto 0.7 X10*3/uL (1.2-4.9); Lymphocytes Percent Auto 9.2 % (20-40); Mean Corpuscular HGB Conc 30.6 g/dl (31.0-35.0); Mean Corpuscular Hemoglobin 26.6 pg (27.0-33.0); Mean Corpuscular Volume 86.9 fL (80.0-98.0); Mean Platelet Volume 8.7 fL (9.4-12.3); Monocytes Absolute Auto 0.7 X10*3/uL (0.1-1.2); Monocytes Percent Auto 8.6 % (2-11); Neutrophils Absolute Auto 5.6 x10*3/uL (2.0-8.3); Neutrophils Percent Auto 74.4 % (45-73); Platelet Count 367 X10*3/uL (160-400); Red Blood Count 4.66 X10*6/uL (4.20-5.50); Red Cell Distribution Width 14.7 % (11.0-16.0); White Blood Count 7.6 X10*3/uL (4.8-10.8)
[2021-09-03 13:58] LABS: Appearance Urine HAZY; Color Urine YELLOW; Glucose Urine UA NEG (NEG); Leukocyte Esterase Urine NEG (NEG); Nitrite Urine NEG (NEG); PH 7.5 (5.0-8.0); UACC Culture Trigger NO; Urine Blood TRACE (NEG); Urine Ketones NEG (NEG); Urine Protein 1+ MG/DL (NEG-TRACE)
[2021-09-03 14:14] LABS: Alanine Aminotransferase 10 U/L (0-31); Alkaline Phosphatase 80 U/L (39-117); Anion Gap 13 (12-20); Aspartate Amino Transferase 8 U/L (5-31); Bilirubin Total 0.4 mg/dL (0.0-1.0); Blood Urea Nitrogen 16 mg/dL (9-16); Carbon Dioxide 25 mmol/L (22-29); Chloride 106 mmol/L (96-108); Cholesterol 183 mg/dL; Estimated Glomerular Filt Rate 52; Glucose Fasting 123 mg/dL (60-99); HDL Cholesterol 42 mg/dL; LDL Cholesterol Calculated 112 mg/dl; Potassium 4.7 mmol/L (3.3-5.1); Sodium 139 mmol/L (135-145); Total Protein 6.9 g/dL (6.5-8.0); Triglycerides 147 mg/dL
[2021-09-03 14:15] LABS: UACC CULT YES
[2021-09-03 14:16] LABS: Bacteria Urine 1+ /LPF; Mucus Urine 1+ /LPF; Renal Epithelial Cells Urine 1+ /LPF; Squamous Epithelial Cell Urine 2+ /LPF
[2021-09-03 14:18] LABS: Estimated Average Glucose 123 mg/dL; Hemoglobin A1c % 5.9 %; Uric Acid 8.2 mg/dL (2.4-5.7)
[2021-09-03 14:27] LABS: Vitamin D 25-OH Total 38.5 ng/mL (>30)
[2021-09-03 16:39] LABS: Creatinine Urine 139.19 mg/dL; Microalbum/Creatinine Ratio Ur 147.9 ug/mg cr
== END 2021-09-03 10:32 | disposition home or self-care (01) ==
LOC: HO.HMGCLDS 10:31
PROVIDERS: PCP Internal Medicine; Visit Provider Internal Medicine
DX: M10.9 Gout, unspecified (principal); E78.00 Pure hypercholesterolemia, unspecified; I10 Essential (primary) hypertension; E55.9 Vitamin D deficiency, unspecified; E11.9 Type 2 diabetes mellitus without complications
CPT/HCPCS: 36415; 80053; 80061; 81001; 82043; 82306; 83036; 84550; 85025; 87086

== ENCOUNTER → 2021-09-23 13:10 | Outpatient (BNVA) | payer MEDICARE, OTHER, SELFPAY | PROVIDERS: PCP Internal Medicine; Visit Provider Internal Medicine | DX: J44.9 Chronic obstructive pulmonary disease, unspecified (principal); J30.9 Allergic rhinitis, unspecified | CPT/HCPCS: 94010; 99212 ==

== ENCOUNTER 2022-01-08 10:27 | Outpatient (REF) | payer MEDICARE, OTHER, SELFPAY ==
[2022-01-08 14:08] LABS: MANUAL DIFF FLAG NO
[2022-01-08 14:21] LABS: Basophils Percent Auto 0.6 % (0-2); Eosinophils Absolute Auto 0.5 X10*3/uL (0.0-0.4); Eosinophils Percent Auto 7.5 % (0-4); Hematocrit 28.6 % (37.0-47.0); Hemoglobin 8.2 g/dl (12.0-16.0); Imm Gran Abs Auto 0.02 X10*3/uL (0.00-0.03); Imm Gran Pct Auto 0.3 % (0.0-0.4); Lymphocytes Absolute Auto 0.6 X10*3/uL (1.2-4.9); Lymphocytes Percent Auto 9.4 % (20-40); Mean Corpuscular HGB Conc 28.7 g/dl (31.0-35.0); Mean Corpuscular Hemoglobin 22.3 pg (27.0-33.0); Mean Corpuscular Volume 77.9 fL (80.0-98.0); Mean Platelet Volume 8.6 fL (9.4-12.3); Monocytes Absolute Auto 0.6 X10*3/uL (0.1-1.2); Monocytes Percent Auto 9.6 % (2-11); Neutrophils Absolute Auto 4.9 x10*3/uL (2.0-8.3); Neutrophils Percent Auto 72.6 % (45-73); Platelet Count 373 X10*3/uL (160-400); Red Blood Count 3.67 X10*6/uL (4.20-5.50); Red Cell Distribution Width 15.9 % (11.0-16.0); White Blood Count 6.7 X10*3/uL (4.8-10.8)
[2022-01-08 14:32] LABS: Estimated Average Glucose 108 mg/dL; Hemoglobin A1c % 5.4 %
[2022-01-08 14:37] LABS: Creatinine Urine 89.32 mg/dL; Microalbum/Creatinine Ratio Ur 20.1 ug/mg cr
[2022-01-08 14:45] LABS: Alanine Aminotransferase 7 U/L (0-31); Alkaline Phosphatase 74 U/L (39-117); Anion Gap 15 (12-20); Aspartate Amino Transferase 8 U/L (5-31); Bilirubin Total 0.3 mg/dL (0.0-1.0); Blood Urea Nitrogen 19 mg/dL (9-16); Calcium 9.4 mg/dL (8.4-10.2); Carbon Dioxide 23 mmol/L (22-29); Chloride 107 mmol/L (96-108); Cholesterol 141 mg/dL; Estimated Glomerular Filt Rate 41; Glucose Fasting 111 mg/dL (60-99); HDL Cholesterol 37 mg/dL; LDL Cholesterol Calculated 88 mg/dl; Potassium 4.7 mmol/L (3.3-5.1); Sodium 140 mmol/L (135-145); Total Protein 6.9 g/dL (6.5-8.0); Triglycerides 81 mg/dL
[2022-01-08 14:53] LABS: TSH reflex Free T4 0.38 uIU/mL (0.32-4.0); Vitamin D 25-OH Total 46.7 ng/mL (>30)
[2022-01-08 14:54] LABS: Appearance Urine Clear; Color Urine Yellow; Glucose Urine UA Negative (Negative); Leukocyte Esterase Urine Moderate (2+) (Negative); Nitrite Urine Negative (Negative); PH 7.5 (5.0-8.0); Specific Gravity - Urine 1.015 (1.005-1.025); Urine Blood Negative (Negative); Urine Ketones Negative (Negative); Urine Protein Negative (Neg-Trace)
[2022-01-08 14:56] LABS: Uric Acid 6.9 mg/dL (2.4-5.7)
[2022-01-08 16:04] LABS: Bacteria Urine Trace (None Seen); Hyaline Casts Urine 0-2 /LPF (0-2); RBC Urine 0-2 /HPF (0-2); WBC Urine 0-5 /HPF (0-5)
== END 2022-01-08 10:28 | disposition home or self-care (01) ==
LOC: HO.HMGCLDS 10:27
PROVIDERS: PCP Internal Medicine; Visit Provider Internal Medicine
DX: E11.9 Type 2 diabetes mellitus without complications (principal); M10.9 Gout, unspecified; E55.9 Vitamin D deficiency, unspecified; E78.00 Pure hypercholesterolemia, unspecified; I10 Essential (primary) hypertension
CPT/HCPCS: 36415; 80053; 80061; 81001; 82043; 82306; 83036; 84443; 84550; 85025

== ENCOUNTER 2022-01-21 13:26 | Inpatient (IN) | payer MEDICARE, OTHER, SELFPAY ==
[2022-01-21] VITALS (8 sets, daily range): BP systolic 132–167; BP diastolic 50–60; PULSE 68–83; RESP 16–25; TEMP 36.6–36.9; O2SAT 94–98; BMI 33.5
--- NOTE | 2022-01-21 14:01 | ECG_ITS ---
Test Reason : Dyspnea Blood Pressure : / mmHG Vent. 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
--- NOTE | 2022-01-21 14:03 | ED_ITS ---
HPI - SOB/Dyspnea General Chief Complaint: GI Bleed Stated Complaint: low BP/black stool Time Seen by Provider: 01/21/22 13:45 Source: patient Mode of arrival: wheelchair Limitations: no limitations History of Present Illness HPI Narrative: 81-year-old female who was sent to the emergency department by Dr. Kruse for evaluation of symptomatic anemia and hypotensive. The patient states that she had routine appointment she states that she has a history of iron deficient anemia and she required 2 units of blood transfusion and an iron transfusion secondary to her anemia. She states she did see the risk reduction counselor, Dr. Haji who stopped her aspirin and t her hemoglobin did improved. She states however recently she saw her PCP and her hemoglobin was 8.2. She was unable to get an appointment with Dr. Haji but was able to get an appointment with Dr. Kruse for follow-up. The patient states that over the last 2 months she has had daily episodes of diarrhea which are liquidy, dark brown sometimes large in volume. She also has lower abdominal cramping prior to her diarrhea. She states she is feeling short of breath with exertion this is got progressively worse. She states she feels dizzy when she stands up. Patient does have a history of peripheral arterial disease and had stenting in 1 leg, after the stenting procedure she states that she was placed on Plavix and aspirin. She continues to take Plavix. She states that she has pain in her lower extremities whenever she exerts herself and this is new over the past several months. I did review Dr. Kruse is office know from today and is below: This is a pleasant 81-year-old woman with iron deficiency anemia diagnosed in September 2020. She was transfused 2 units PRBC in January 2021. She has been on aspirin for many years, Plavix was added this year after stent procedure for peripheral vascular disease.? She does have chronic history of GERD.? She probably has occult blood losses from antiplatelet therapy.? She has been on oral iron for many years.? She was taken off aspirin. She received parenteral iron dextran in March 2021.? She received a unit of blood again in April 2021.? She is on oral iron supplementation. ? Patient appears very pale, she reports diarrhea and dizziness.? She was anemic with a hemoglobin of 8.2 gram/dL 2 weeks ago.? She appears to be having recurrent GI bleeding.? On exam she was hypotensive as well.? She is being sent to the emergency department for blood work, possible blood transfusion and evaluation by GI. Related Data Home Medications Medication Instructions Recorded Confirmed albuterol sulfate 90 mcg/actuation 2 puff inhalation .4 times a day 03/13/20 01/21/22 aerosol inhaler (ProAir HFA) PRN shortness of breath or wheezing diltiazem HCl 240 mg 240 mg PO DAILY 03/13/20 01/21/22 capsule,extended release 24 hr, controlled ferrous sulfate 325 mg (65 mg 325 mg PO DAILY 03/13/20 01/21/22 iron) tablet (Feosol) mirtazapine 15 mg tablet 15 mg PO BEDTIME 03/13/20 01/21/22 trazodone 50 mg tablet 50 mg PO BEDTIME 03/13/20 01/21/22 magnesium 200 mg tablet 400 mg PO DAILY 05/29/20 01/21/22 mecobalamin (vitamin B12) 5,000 5,000 mcg PO DAILY 05/29/20 01/21/22 mcg disintegrating tablet clopidogrel 75 mg tablet 75 mg PO DAILY 08/28/20 01/21/22 citalopram 20 mg tablet (Celexa) 40 mg PO DAILY 11/26/20 01/21/22 atorvastatin 80 mg tablet (Lipitor) 80 mg PO DAILY 01/21/22 01/21/22 lansoprazole 30 mg capsule,delayed 30 mg PO DAILY 01/21/22 01/21/22 release (Prevacid) metformin 500 mg tablet,extended 500 mg PO BID 01/21/22 01/21/22 release 24hr sitagliptin 50 mg tablet (Januvia) 1 tab PO DAILY 01/21/22 01/21/22 valsartan 320 mg tablet 320 mg PO DAILY 01/21/22 01/21/22 Previous Rx's Medication Instructions Recorded cholecalciferol (vitamin D3) 50 50 mcg PO DAILY 90 days #90 caps 11/26/20 mcg (2,000 unit) capsule montelukast 10 mg tablet 10 mg PO DAILY #90 tabs 08/26/21 Advair Diskus 250 mcg-50 mcg/dose 1 ea inhalation BID #60 ea 09/26/21 powder for inhalation (fluticasone propion-salmeterol) Allergies Allergy/AdvReac Type Severity Reaction Status Date / Time Iodinated Contrast Media Allergy Severe HIVE Verified 01/15/22 12:47 [IV DYE, IODINE CONTAINING CONTRAST ] Penicillins [PENICILLINS] Allergy Severe HIVES Verified 01/15/22 12:47 Review of Systems Review of Systems: Yes all other systems are reviewed and are negative [facility] Past Medical History Attestation statement: The following information was validated with the patient. Medical History Allergic rhinitis Anemia Anxiety Benign essential hypertension Chronic kidney disease (CKD), stage III (moderate) COPD (chronic obstructive pulmonary disease) Depression Exertional dyspnea GERD without esophagitis Gout Hearing impairment Hemorrhagic cystitis Hypomagnesemia Multiple thyroid nodules Obesity (BMI 30-39.9) Obesity (BMI 30-39.9) Osteoarthritis of ankle and foot Osteopenia PAC (premature atrial contraction) Peripheral vascular disease PSVT (paroxysmal supraventricular tachycardia) Pure hypercholesterolemia Sciatica of right side 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 Valvular heart disease Vitamin D deficiency Surgical History History of angioplasty of peripheral vessel (~08/13/20) History of appendectomy History of biopsy History of bladder surgery History of cataract surgery History of colonoscopy History of hysterectomy History of neck surgery History of tonsillectomy and adenoidectomy Family History Family History Father Stroke CVD (cardiovascular disease) Mother CVD (cardiovascular disease) Hypertension CAD (coronary artery disease) Other Mental health disorder Social History Social History Household Members: None Housing: Condominium Alcohol intake: current Alcohol intake frequency: holidays/special occasions only Alcohol type: beer and hard liquor Patient Tobacco Use Status: Former Tobacco user Quit Date: 1999 Tobacco use type: Cigarette e-Cigarette/Vaping Use: Never Used Second Hand Smoke Exposure: Yes Advance Directives: No Advance Directives Information Provided: No service: No Current occupational status: retired Cognitive needs: Yes (cane) Hearing needs: Yes Vision needs: Yes Physical Exam Vital Signs: Vital Signs: Last Vital Signs Temp 98.3 F 01/21/22 15:46 Pulse 68 01/21/22 15:46 Resp 16 01/21/22 15:46 BP 134/54 L 01/21/22 15:46 Pulse Ox 98 01/21/22 15:46 O2 Del Method 01/21/22 15:46 BMI result Body Mass Index 33.5 Const: General: cooperative and no acute distress Orientation/consciousness: oriented to person and oriented to place Limitations: no limitations HEENT: Head: Yes normal to inspection, Yes normocephalic and Yes atraumatic Ears: external ears normal General nose exam: Normal external nose present Face and sinus: Yes normal facial exam Mouth: Normal oral and palatal mucosa present Throat: Yes posterior oropharynx normal Eyes: General: appearance normal, both eyes and all related structures Pupils: Equal, round and reactive pupils present Neck: Neck: Yes normal visual inspection, Yes no lymphadenopathy, Yes trachea midline and Yes supple Chest: Chest palpation & inspection: normal inspection of the chest and normal palpation of entire chest wall Resp: Effort & Inspection: normal respiratory effort and able to speak in complete sentences Auscultation: clear to auscultation bilaterally Cardio: Rate: regular rate Rhythm: regular rhythm Heart sounds: S1 normal heart sound present, S2 normal heart sound present and Murmur heart sound present (3/6 systolic murmur best heard at the by right upper sternal border) GI: Inspection: Yes normal to inspection Palpation (GI): Soft to palpation, nontender and no guarding Auscultation: normal bowel sounds Rectal Exam - Female: visual inspection normal, normal sphincter tone, Abnormal stool present (Loose, dark brown) and heme positive stool : General: Yes no CVA tenderness Back/Spine/Pelvis: Back: no CVA tenderness Skin: General skin exam: no rashes or lesions noted Neuro: General: oriented to person and oriented to place Cranial nerves: Yes CN's II-XII intact bilaterally and Yes Equal, round and reactive pupils present Cognition (Neuro): normal cognition Motor exam (neuro): 5/5 motor strength present throughout Extrem: General: Yes normal to inspection Psych: Appearance: grossly normal Speech and movement: Normal speech and movement present Affect: normal affect Attitude: cooperative Thought process: Normal thought process present Thought content: Normal thought content present Course Course Course Narrative: 81-year-old female who was sent to the emergency department from Dr. Kruse as office for evaluation of symptomatic anemia. Patient's H&H on 09/03/2021 was 12.4 and 40.5 and on 01/08/2022 H&H was 8.2 and 28.6. Patient has had dark brown diarrheal stools daily for the last several months. She has had dyspnea on exertion, lightheadedness with standing, weakness and claudication (she has a history of PAD with stenting). Vital signs were normal. Patient had no abdominal tenderness. Rectal exam revealed dark loose brown stool which was Hemoccult positive. I ordered a CBC, CMP, COVID-19, lactic acid, lipase, of occult blood stool, PT/INR, PTT, troponin. We will obtain an EKG. Type and screen was also ordered. 1651: Laboratory evaluation: Low MCV 76. Elevated BUN 24. Troponin below detectable limits. COVID-19 negative. Occult stool positive. The patient's H&H dropped further, I do believe the patient has symptomatic anemia you should be hospitalized for transfusion and GI workup. I did discuss over tiger text the patient's presentation with the covering hospitalist, Dr. Tyler and the patient will be admitted to the hospital service for further treatment . I did order 1 unit of packed red blood cells to be transfused at this time. MDM - SOB/Dyspnea Medical Records Attestation: I reviewed the patient's medical records. Lab Data Attestation: I reviewed the patient's lab results. Result diagrams: 01/21/22 15:04 01/21/22 15:04 Labs: Lab Results 01/21/22 01/21/22 01/21/22 Range/Units 15:03 15:04 15:04 WBC 10.2 (4.8-10.8) X10*3/uL RBC 3.54 L (4.20-5.50) X10*6/uL Hgb 7.7 L (12.0-16.0) g/dl Hct 27.2 L (37.0-47.0) % MCV 76.8 L (80.0-98.0) fL MCH 21.8 L (27.0-33.0) pg MCHC 28.3 L (31.0-35.0) g/dl RDW 16.2 H (11.0-16.0) % Plt Count 369 (160-400) X10*3/uL MPV 8.5 L (9.4-12.3) fL Immature Gran % (Auto) 0.4 (0.0-0.4) % Neut % (Auto) 80.1 H (45-73) % Lymph % (Auto) 6.0 L (20-40) % Andrews % (Auto) 10.3 (2-11) % Eos % (Auto) 2.8 (0-4) % Baso % (Auto) 0.4 (0-2) % Lymph # (Auto) 0.6 L (1.2-4.9) X10*3/uL Andrews # (Auto) 1.1 (0.1-1.2) X10*3/uL Eos # (Auto) 0.3 (0.0-0.4) X10*3/uL Baso # (Auto) 0.0 (0.0-0.2) X10*3/uL Abs Immat Gran (auto) 0.04 H (0.00-0.03) X10*3/uL Absolute Neuts (auto) 8.2 (2.0-8.3) x10*3/uL Absolute Nucleated RBC 0.000 (0.0-0.012) X10*3/uL Nucleated RBC % (auto) 0.0 (0.0-0.2) /100WBC PT 11.6 (10.0-13.1) SEC INR 1.0 (0.9-1.1) APTT 29.1 (26.0-36.4) SEC Sodium (135-145) mmol/L Potassium (3.3-5.1) mmol/L Chloride (96-108) mmol/L Carbon Dioxide (22-29) mmol/L Anion Gap (12-20) BUN (9-16) mg/dL Creatinine (0.5-1.4) mg/dL Estim Creat Clear Calc Estimated GFR Random Glucose (60-115) mg/dL Lactic Acid (0.5-2.0) mmol/L Calcium (8.4-10.2) mg/dL Total Bilirubin (0.0-1.0) mg/dL AST (5-31) U/L ALT (0-31) U/L Alkaline Phosphatase (39-117) U/L Troponin I High Sens (<3.5-17.0) ng/L Total Protein (6.5-8.0) g/dL Albumin (3.5-5.0) g/dL Lipase (8-78) U/L Stool Occult Blood (NEGATIVE) COVID-19 ([facility]) (Negative) COVID-19 Clin Com Blood Type O Positive Antibody Screen NEGATIVE Crossmatch See Detail 01/21/22 01/21/22 01/21/22 Range/Units 15:04 15:04 15:04 WBC (4.8-10.8) X10*3/uL RBC (4.20-5.50) X10*6/uL Hgb (12.0-16.0) g/dl Hct (37.0-47.0) % MCV (80.0-98.0) fL MCH (27.0-33.0) pg MCHC (31.0-35.0) g/dl RDW (11.0-16.0) % Plt Count (160-400) X10*3/uL MPV (9.4-12.3) fL Immature Gran % (Auto) (0.0-0.4) % Neut % (Auto) (45-73) % Lymph % (Auto) (20-40) % Andrews % (Auto) (2-11) % Eos % (Auto) (0-4) % Baso % (Auto) (0-2) % Lymph # (Auto) (1.2-4.9) X10*3/uL Andrews # (Auto) (0.1-1.2) X10*3/uL Eos # (Auto) (0.0-0.4) X10*3/uL Baso # (Auto) (0.0-0.2) X10*3/uL Abs Immat Gran (auto) (0.00-0.03) X10*3/uL Absolute Neuts (auto) (2.0-8.3) x10*3/uL Absolute Nucleated RBC (0.0-0.012) X10*3/uL Nucleated RBC % (auto) (0.0-0.2) /100WBC PT (10.0-13.1) SEC INR (0.9-1.1) APTT (26.0-36.4) SEC Sodium 140 (135-145) mmol/L Potassium 4.8 (3.3-5.1) mmol/L Chloride 109 H (96-108) mmol/L Carbon Dioxide 22 (22-29) mmol/L Anion Gap 14 (12-20) BUN 24 H (9-16) mg/dL Creatinine 1.22 (0.5-1.4) mg/dL Estim Creat Clear Calc 35.4 Estimated GFR 42 Random Glucose 72 (60-115) mg/dL Lactic Acid 1.6 (0.5-2.0) mmol/L Calcium 9.5 (8.4-10.2) mg/dL Total Bilirubin 0.3 (0.0-1.0) mg/dL AST 8 (5-31) U/L ALT 9 (0-31) U/L Alkaline Phosphatase 75 (39-117) U/L Troponin I High Sens < 3.5 (<3.5-17.0) ng/L Total Protein 6.7 (6.5-8.0) g/dL Albumin 3.8 (3.5-5.0) g/dL Lipase 27 (8-78) U/L Stool Occult Blood (NEGATIVE) COVID-19 ([facility]) (Negative) COVID-19 Clin Com Blood Type Antibody Screen Crossmatch 01/21/22 01/21/22 Range/Units 15:04 15:05 WBC (4.8-10.8) X10*3/uL RBC (4.20-5.50) X10*6/uL Hgb (12.0-16.0) g/dl Hct (37.0-47.0) % MCV (80.0-98.0) fL MCH (27.0-33.0) pg MCHC (31.0-35.0) g/dl RDW (11.0-16.0) % Plt Count (160-400) X10*3/uL MPV (9.4-12.3) fL Immature Gran % (Auto) (0.0-0.4) % Neut % (Auto) (45-73) % Lymph % (Auto) (20-40) % Andrews % (Auto) (2-11) % Eos % (Auto) (0-4) % Baso % (Auto) (0-2) % Lymph # (Auto) (1.2-4.9) X10*3/uL Andrews # (Auto) (0.1-1.2) X10*3/uL Eos # (Auto) (0.0-0.4) X10*3/uL Baso # (Auto) (0.0-0.2) X10*3/uL Abs Immat Gran (auto) (0.00-0.03) X10*3/uL Absolute Neuts (auto) (2.0-8.3) x10*3/uL Absolute Nucleated RBC (0.0-0.012) X10*3/uL Nucleated RBC % (auto) (0.0-0.2) /100WBC PT (10.0-13.1) SEC INR (0.9-1.1) APTT (26.0-36.4) SEC Sodium (135-145) mmol/L Potassium (3.3-5.1) mmol/L Chloride (96-108) mmol/L Carbon Dioxide (22-29) mmol/L Anion Gap (12-20) BUN (9-16) mg/dL Creatinine (0.5-1.4) mg/dL Estim Creat Clear Calc Estimated GFR Random Glucose (60-115) mg/dL Lactic Acid (0.5-2.0) mmol/L Calcium (8.4-10.2) mg/dL Total Bilirubin (0.0-1.0) mg/dL AST (5-31) U/L ALT (0-31) U/L Alkaline Phosphatase (39-117) U/L Troponin I High Sens (<3.5-17.0) ng/L Total Protein (6.5-8.0) g/dL Albumin (3.5-5.0) g/dL Lipase (8-78) U/L Stool Occult Blood POSITIVE (NEGATIVE) COVID-19 ([facility]) Negative (Negative) COVID-19 Clin Com See Note Blood Type Antibody Screen Crossmatch ECG Data Attestation: I personally reviewed and interpreted this ECG as follows: Interpretation: 1422: Normal sinus rhythm rate of 75, normal KS interval QRS duration QTC interval, Q-waves in lead 3 and AVF, no ST segment elevation, no ST segment depression, no significant T-wave abnormalities, no PACs, no PVCs. Discharge Plan Discharge Patient Disposition: Admitted As Inpatient Prescriptions: No Action valsartan 160 mg tablet 160 mg PO DAILY Qty: 90 3RF montelukast 10 mg tablet 10 mg PO DAILY Qty: 90 1RF fluticasone propion-salmeterol [Advair Diskus] 250-50 mcg/dose blister with device 1 ea inhalation BID Qty: 60 3RF metformin 500 mg tablet 500 mg PO BID 90 Days Qty: 180 1RF Januvia 50 mg tablet 1 tab PO DAILY atorvastatin [Lipitor] 80 mg tablet 80 mg PO DAILY lansoprazole [Prevacid] 30 mg capsule,delayed release(DR/EC) 30 mg PO DAILY trazodone 50 mg tablet 50 mg PO BEDTIME mirtazapine 15 mg tablet 15 mg PO BEDTIME diltiazem HCl 240 mg capsule,ext.rel 24h degradable 240 mg PO DAILY albuterol sulfate [ProAir HFA] 90 mcg/actuation HFA aerosol inhaler 2 puff inhalation .4 times a day PRN (Reason: shortness of breath or wheezing) ferrous sulfate [Feosol] 325 mg (65 mg iron) tablet 325 mg PO DAILY citalopram [Celexa] 20 mg tablet 40 mg PO DAILY clopidogrel 75 mg tablet 75 mg PO DAILY magnesium 200 mg tablet 400 mg PO DAILY mecobalamin (vitamin B12) 5,000 mcg tablet,disintegrating 5,000 mcg PO DAILY cholecalciferol (vitamin D3) 50 mcg (2,000 unit) capsule 50 mcg PO DAILY 90 Days Qty: 90 2RF
[2022-01-21 15:13] LABS: MANUAL DIFF FLAG NO
[2022-01-21 15:16] LABS: Basophils Percent Auto 0.4 % (0-2); Eosinophils Absolute Auto 0.3 X10*3/uL (0.0-0.4); Eosinophils Percent Auto 2.8 % (0-4); Hematocrit 27.2 % (37.0-47.0); Hemoglobin 7.7 g/dl (12.0-16.0); Imm Gran Abs Auto 0.04 X10*3/uL (0.00-0.03); Imm Gran Pct Auto 0.4 % (0.0-0.4); Lymphocytes Absolute Auto 0.6 X10*3/uL (1.2-4.9); Mean Corpuscular HGB Conc 28.3 g/dl (31.0-35.0); Mean Corpuscular Hemoglobin 21.8 pg (27.0-33.0); Mean Corpuscular Volume 76.8 fL (80.0-98.0); Mean Platelet Volume 8.5 fL (9.4-12.3); Monocytes Absolute Auto 1.1 X10*3/uL (0.1-1.2); Monocytes Percent Auto 10.3 % (2-11); Neutrophils Absolute Auto 8.2 x10*3/uL (2.0-8.3); Neutrophils Percent Auto 80.1 % (45-73); Platelet Count 369 X10*3/uL (160-400); Red Blood Count 3.54 X10*6/uL (4.20-5.50); Red Cell Distribution Width 16.2 % (11.0-16.0); White Blood Count 10.2 X10*3/uL (4.8-10.8)
[2022-01-21 15:22] LABS: Prothrombin Time 11.6 SEC (10.0-13.1)
[2022-01-21 15:24] LABS: Partial Thromboplastin Time 29.1 SEC (26.0-36.4)
[2022-01-21 15:26] LABS: OBS Int Ctl Valid YES; OBS1 POSITIVE (NEGATIVE)
[2022-01-21 15:28] LABS: Lactic Acid 1.6 mmol/L (0.5-2.0)
[2022-01-21 15:32] LABS: Alanine Aminotransferase 9 U/L (0-31); Albumin Level 3.8 g/dL (3.5-5.0); Alkaline Phosphatase 75 U/L (39-117); Anion Gap 14 (12-20); Aspartate Amino Transferase 8 U/L (5-31); Bilirubin Total 0.3 mg/dL (0.0-1.0); Blood Urea Nitrogen 24 mg/dL (9-16); Calcium 9.5 mg/dL (8.4-10.2); Carbon Dioxide 22 mmol/L (22-29); Chloride 109 mmol/L (96-108); Creatinine Clr Calc Pharmacy 35.4; Estimated Glomerular Filt Rate 42; Glucose Random 72 mg/dL (60-115); Lipase 27 U/L (8-78); Potassium 4.8 mmol/L (3.3-5.1); Sodium 140 mmol/L (135-145); Total Protein 6.7 g/dL (6.5-8.0)
[2022-01-21 15:38] LABS: Troponin-I High Sensitivity < 3.5 ng/L (<3.5-17.0)
[2022-01-21 15:45] LABS: COVID-19 Test Negative (Negative)
--- NOTE | 2022-01-21 16:12 | PC.NURSE ---
assumed care of pt at 1500, pt a&ox3, vss, pt denies any pain/sob at this time.
--- NOTE | 2022-01-21 16:58 | PHA.MEDREC ---
Pharmacy Consult ? Medication Reconciliation Pharmacy has completed the medication reconciliation. Patient had list at bedside.
--- NOTE | 2022-01-21 17:20 | P.EN_ITS ---
Event Note Date of Service: 01/21/22 Event Note: admission note Date of service 01/21/2022 the patient was seen and evaluated with Zeynep Mcghee NP. I agree with her note, assessment and plan with the following. An 81 years old lady with PMH of type 2 diabetes, stage III CKD, P 80, HTN, COPD, among others who presented to the hospital as a referral from Hematology office for symptomatic anemia. Found to have drop in her hemoglobin below 8 from baseline of around 12. Positive occult blood in the emergency. Acute on chronic blood loss anemia Likely secondary to GI bleed Transfuse blood Bid PPI Check iron profile Discussed with Dr. Haji, transfer overnight and consider workup later unless active bleeding Rest of evaluations by INTERDISCIPLINARY PROFESSOR note.
--- NOTE | 2022-01-21 18:06 | PM.IMHP ---
History of Present Illness Date of Service: 01/21/22 Attending physician on admission: Sarah Tyler Chief Complaint: symptomatic anemia with GI bleed 81-year-old female with history of uzl-[id number] type 2 diabetes with CKD stage 3 and peripheral arterial disease, hypertension, hyperlipidemia, hypomagnesia, PSVT, COPD, osteopenia, aortic stenosis, and chronic microcytic anemia presented to the emergency department earlier this afternoon from Hematology office due to symptomatic anemia. She has been experiencing dyspnea on exertion, fatigue, lightheadedness worsening over the last 2 weeks but ongoing for several months. She has had daily watery diarrhea with very dark solid pieces of stool with associated lower abdominal cramping. She had been on aspirin for many years for the peripheral arterial disease and Plavix was added this year following stent procedure. Aspirin was discontinued due to her anemia but was continued on Plavix. H/H has continued to decline and was 7.7/27.2% today (was 12.4/40.5% in August 2021). Has history of GI bleed requiring blood transfusion and iron infusion in 2020. Has been on oral iron for years. Stool in ED was heme positive. No recent NSAID use. Dr. Haji has seen pt outpatient and case was discussed with him by ED provider. Review of Systems Review of Systems: General: +fatigue. No fevers, malaise, unintentional weight loss Cardiovascular: No chest pain, palpitations, or leg edema Respiratory: +SOB. No wheezing, cough GI: +lower abd cramping, +diarrhea, +melena. No nausea, vomiting, constipation, hematochezia Neuro: +lightheadedness. No headaches, weakness, paresthesias Skin: No rashes or lesions FOR[facility]LY [facility], [facility] Medical History Allergic rhinitis Anemia Anxiety Benign essential hypertension Chronic kidney disease (CKD), stage III (moderate) COPD (chronic obstructive pulmonary disease) Depression Exertional dyspnea GERD without esophagitis Gout Hearing impairment Hemorrhagic cystitis Hypomagnesemia Multiple thyroid nodules Obesity (BMI 30-39.9) Obesity (BMI 30-39.9) Osteoarthritis of ankle and foot Osteopenia PAC (premature atrial contraction) Peripheral vascular disease PSVT (paroxysmal supraventricular tachycardia) Pure hypercholesterolemia Sciatica of right side 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 Valvular heart disease Vitamin D deficiency Family History Father Stroke CVD (cardiovascular disease) Mother CVD (cardiovascular disease) Hypertension CAD (coronary artery disease) Other Mental health disorder Surgical History History of angioplasty of peripheral vessel (~08/13/20) History of appendectomy History of biopsy History of bladder surgery History of cataract surgery History of colonoscopy History of hysterectomy History of neck surgery History of tonsillectomy and adenoidectomy Social History Household Members: None Housing: Condominium Alcohol intake: current Alcohol intake frequency: holidays/special occasions only Alcohol type: beer and hard liquor Patient Tobacco Use Status: Former Tobacco user Quit Date: 1999 Tobacco use type: Cigarette e-Cigarette/Vaping Use: Never Used Second Hand Smoke Exposure: Yes Use of substances other than those prescribed or required for medical reasons: No Advance Directives: No Advance Directives Information Provided: No service: No Current occupational status: retired Cognitive needs: Yes (cane) Hearing needs: Yes Vision needs: Yes Meds Allergies Allergy/AdvReac Type Severity Reaction Status Date / Time Iodinated Contrast Media Allergy Severe HIVE Verified 01/15/22 12:47 [IV DYE, IODINE CONTAINING CONTRAST ] Penicillins [PENICILLINS] Allergy Severe HIVES Verified 01/15/22 12:47 Active Medications: Current Medications Acetaminophen (Acetaminophen Supp 650 Mg Supp.Rect) 650 mg VA Q6H PRN PRN Reason: Pain, Mild (Pain Scale 1-3) Atorvastatin Calcium (Atorvastatin Calcium 80 Mg Tablet) 80 mg PO DAILY LETICIA Diltiazem HCl (Diltiazem Hcl Cd 240 Mg Cap.Er.Deg) 240 mg PO DAILY LETICIA; Protocol Insulin Human Lispro (Insulin Lispro 100 Unit/Ml 3 Ml Vial) 0 unit SUBCUT QIDACHS LETICIA; Protocol Mirtazapine (Mirtazapine 15 Mg Tablet) 15 mg PO BEDTIME LETICIA Montelukast Sodium (Montelukast Sodium 10 Mg Tablet) 10 mg PO DAILY [facility]ICIA Non-Formulary Medication (Citalopram [Celexa]) 40 mg PO DAILY [facility]IA Non-Formulary Medication (Fluticasone Propion-Salmeterol [Advair Diskus]) 1 each INHALE BID [facility] Non-Formulary Medication (Magnesium) 400 mg PO DAILY [facility] Non-Formulary Medication (Mecobalamin (Vitamin B12)) 5,000 mcg PO DAILY [facility] Ondansetron HCl (Ondansetron Hcl 4 Mg/2 Ml Vial) 4 mg IVPUSH Q8H PRN PRN Reason: Nausea and Vomiting Pantoprazole Sodium (Pantoprazole Sodium 40 Mg/10 Ml Vial) 40 mg IVPUSH BID@0630,1630 [facility] Pharmacy Consult (Consult Rx Perform Med Rec) 1 each MISCELLANE ONCE PRN PRN Reason: Consult order Trazodone HCl (Trazodone Hcl 50 Mg Tablet) 50 mg PO BEDTIME [facility] Valsartan (Valsartan 160 Mg Tablet) 160 mg PO DAILY [facility]; Protocol Vitamin D (Cholecalciferol (Vitamin D3) 25 Mcg Tablet) 50 mcg PO DAILY [facility] Home Medications Medication Instructions Recorded Confirmed Last Taken Type albuterol sulfate 90 mcg/actuation 2 puff inhalation .4 times a day 03/13/20 01/21/22 01/21/22 History aerosol inhaler (ProAir HFA) PRN shortness of breath or wheezing diltiazem HCl 240 mg 240 mg PO DAILY 03/13/20 01/21/22 01/21/22 History capsule,extended release 24 hr, controlled ferrous sulfate 325 mg (65 mg 325 mg PO DAILY 03/13/20 01/21/22 01/21/22 History iron) tablet (Feosol) mirtazapine 15 mg tablet 15 mg PO BEDTIME 03/13/20 01/21/22 01/20/22 History trazodone 50 mg tablet 50 mg PO BEDTIME 03/13/20 01/21/22 01/20/22 History magnesium 200 mg tablet 400 mg PO DAILY 05/29/20 01/21/22 01/21/22 History mecobalamin (vitamin B12) 5,000 5,000 mcg PO DAILY 05/29/20 01/21/22 01/21/22 History mcg disintegrating tablet clopidogrel 75 mg tablet 75 mg PO DAILY 08/28/20 01/21/22 01/21/22 History citalopram 20 mg tablet (Celexa) 40 mg PO DAILY 11/26/20 01/21/22 01/21/22 History atorvastatin 80 mg tablet (Lipitor) 80 mg PO DAILY 01/21/22 01/21/22 01/21/22 History metformin 500 mg tablet,extended 500 mg PO BID 01/21/22 01/21/22 Unknown History release 24hr sitagliptin 50 mg tablet (Januvia) 1 tab PO DAILY 01/21/22 01/21/22 01/21/22 History valsartan 160 mg tablet 160 mg PO DAILY 01/21/22 01/21/22 Unknown History Physical Exam Vital Signs and Narrative: Vital Signs: Last Vital Signs Temp 98.4 F 01/21/22 17:51 Pulse 77 01/21/22 17:51 Resp 25 H 01/21/22 17:51 BP 143/50 H 01/21/22 17:51 Pulse Ox 98 01/21/22 15:46 O2 Del Method 01/21/22 15:46 BMI result Body Mass Index 33.5 Constitutional - Awake and Alert, No apparent distress Eyes - PERRLA, EOMI Cardiovascular - S1S2, RRR, No edema. 2+ pedal pulse R, 1+ pedal pulse L Respiratory - Normal lung expansion, Normal respiratory effort, No respiratory distress, CTA bilaterally Gastrointestinal - Mild LLQ ttp without guarding or rebound. NT / ND; +BS Extremities - no calf tenderness bilaterally, no swelling Skin - Warm/Dry Neurological - Alert & oriented x3, CN II-XII in tact. 5/5 strength BUE and BLE Psychological - Appropriate affect Results Labs CBC and Chem 7: 01/22/22 04:57 01/21/22 15:04 Labs: Laboratory Results - last 24 hr 01/21/22 01/21/22 01/21/22 15:03 15:04 15:04 MCV 76.8 L MCH 21.8 L MCHC 28.3 L RDW 16.2 H Plt Count 369 MPV 8.5 L Immature Gran % (Auto) 0.4 Neut % (Auto) 80.1 H Lymph % (Auto) 6.0 L [place] % (Auto) 10.3 Eos % (Auto) 2.8 Baso % (Auto) 0.4 Lymph # (Auto) 0.6 L [place] # (Auto) 1.1 Eos # (Auto) 0.3 Baso # (Auto) 0.0 Abs Immat Gran (auto) 0.04 H Absolute Neuts (auto) 8.2 Absolute Nucleated RBC 0.000 Nucleated RBC % (auto) 0.0 PT 11.6 INR 1.0 APTT 29.1 Anion Gap Estim Creat Clear Calc Estimated GFR Random Glucose Lactic Acid Calcium Total Bilirubin AST ALT Alkaline Phosphatase Total Protein Albumin Lipase Stool Occult Blood COVID-19 ([facility]IO) COVID-[employer] Com Blood Type O Positive Antibody Screen NEGATIVE Crossmatch See Detail 01/21/22 01/21/22 01/21/22 15:04 15:04 15:04 MCV MCH MCHC RDW Plt Count MPV Immature Gran % (Auto) Neut % (Auto) Lymph % (Auto) [place] % (Auto) Eos % (Auto) Baso % (Auto) Lymph # (Auto) [place] # (Auto) Eos # (Auto) Baso # (Auto) Abs Immat Gran (auto) Absolute Neuts (auto) Absolute Nucleated RBC Nucleated RBC % (auto) PT INR APTT Anion Gap 14 Estim Creat Clear Calc 35.4 Estimated GFR 42 Random Glucose 72 Lactic Acid 1.6 Calcium 9.5 Total Bilirubin 0.3 AST 8 ALT 9 Alkaline Phosphatase 75 Total Protein 6.7 Albumin 3.8 Lipase 27 Stool Occult Blood POSITIVE COVID-19 ([facility]IO) COVID-[employer] Blood Type Antibody Screen Crossmatch 01/21/22 15:05 MCV MCH MCHC RDW Plt Count MPV Immature Gran % (Auto) Neut % (Auto) Lymph % (Auto) [place] % (Auto) Eos % (Auto) Baso % (Auto) Lymph # (Auto) [place] # (Auto) Eos # (Auto) Baso # (Auto) Abs Immat Gran (auto) Absolute Neuts (auto) Absolute Nucleated RBC Nucleated RBC % (auto) PT INR APTT Anion Gap Estim Creat Clear Calc Estimated GFR Random Glucose Lactic Acid Calcium Total Bilirubin AST ALT Alkaline Phosphatase Total Protein Albumin Lipase Stool Occult Blood COVID-19 (ROMARIO) Negative [facility] See Note Blood Type Antibody Screen Crossmatch Assessment and Plan (1) Symptomatic anemia: Status: Acute (2) GI bleed: Status: Acute Plan 81-year-old female with history of nza-shiprwr-[id number] type 2 diabetes with CKD stage 3 and peripheral arterial disease, hypertension, hyperlipidemia, hypomagnesia, PSVT, COPD, osteopenia, aortic stenosis, and chronic microcytic anemia admitted for symptomatic anemia with GI bleed. 1-Symptomatic microcytic anemia- likely secondary to slow GI bleed from antiplatelet therapy -History GI bleed requiring 2 units packed red blood cells and iron infusion in 2020 -H/H 7.7/27.2% today (was 12.4/40.5% in August -1 unit packed red blood cells given in ED -Hold plavix -Trend CBC daily 2- GI Bleed- likely chronic -ED provider discussed with Dr. Haji who feels bleed is related to colonic AVMs r/t antiplatelet therapy. Recommends holding ferrous sulfate and will likely perform egd/colonoscopy outpt -Gastroenterology consult placed -Heme positive stool in ED -1 unit prbc as above -Trend CBC daily 3-Chronic diarrhea- daily watery diarrhea with melena ongoing for months -CDiff and GI panel ordered -Afebrile. No leukocytosis. Vitals stable -Clear liquid diet. Advance as tolerated 4-Noninsulin dependent type 2 diabetes- controlled with last A1c 5.4% -Hold home meds -Humalog on ss -POC glucose 5-HTN- controlled -Continue valsartan adn diltiazem 6-HLD -Continue atorvastatin 7-PAD- stable -Hold plavix d/t GI bleed 8-PSVT- rate controlled -Continue diltiazem 9- Depression- stable -Contineu citalopram, mirtazepine, and trazodone 10-COPD without exacerbation -Continue maintenance inhalers -Duonebs prn DVT prophylaxis- mechanical and ambulation Full code Pt requires inpt stay of at least 2 midnights due to GI bleed with symptomatic anemia requiring transfusion and ongoing cardiac and lab monitoring that cannot be achieved outpatient. Quality Stroke Does the patient have a stroke diagnosis?: No VTE Prior VTE?: No VTE Risk Level:: Medical - moderate - high VTE Device Contraindication: N/A - Device Ordered VTE Drug Contraindication: Treatment Not Tolerated
[2022-01-21 19:01] LABS: Iron 96 mcg/dL (30-160); Percent Iron Saturation 27 % (15-50); Total Iron Binding Capacity 358 mcg/dL (228-428); Unsaturated Iron Binding 262 ug/dL
[2022-01-21] MEDS: Pantoprazole Sodium 40 MG/10 ML VIAL IVPUSH (20:24)
[2022-01-21] MEDS: traZODone HCL 50 MG TABLET PO (21:51)
[2022-01-21] MEDS: Mirtazapine 15 MG TABLET PO (21:51)
[2022-01-21 21:52] LABS: Glucose, Whole Blood 83 mg/dL (60-115)
--- NOTE | 2022-01-21 21:54 | PC.NURSE ---
pt a&ox3, vss, medicated per provider order, no insulin coverage needed, pt denies any pain at this time, ambulating independently to bathroom.
--- NOTE | 2022-01-21 23:54 | PM.EVENT ---
Event Note Date of Service: 01/21/22 Event Note: GI Consult received-Patient to be seen and a full note to follow on 01/22-Case D/W ER Imp/Recs: Anemia due to chronic GI blood loss in relation to known colonic AVM's and chronic need for anticoagulation. I recommended 2 u PRBC's before discharge to allow an outpatient EGD/Colonoscopy after her Iron and anticoagulation have been stopped. As long as her Hgb improves appropriately after transfusions and she is stable, her diet can be advanced on 01/22. Thanks.
[2022-01-22] VITALS (8 sets, daily range): BP systolic 121–168; BP diastolic 52–74; PULSE 71–80; RESP 15–21; TEMP 36.5–36.7; O2SAT 92–97
--- NOTE | 2022-01-22 04:04 | PC.NURSE ---
pt is currently asleep, respirations even and unlabored in no apparent distress at this time
[2022-01-22 05:34] LABS: MANUAL DIFF FLAG NO
[2022-01-22 05:37] LABS: Basophils Percent Auto 0.3 % (0-2); Eosinophils Absolute Auto 0.4 X10*3/uL (0.0-0.4); Hematocrit 30.6 % (37.0-47.0); Hemoglobin 8.9 g/dl (12.0-16.0); Imm Gran Abs Auto 0.04 X10*3/uL (0.00-0.03); Imm Gran Pct Auto 0.4 % (0.0-0.4); Lymphocytes Absolute Auto 0.6 X10*3/uL (1.2-4.9); Lymphocytes Percent Auto 6.3 % (20-40); Mean Corpuscular HGB Conc 29.1 g/dl (31.0-35.0); Mean Corpuscular Hemoglobin 23.1 pg (27.0-33.0); Mean Corpuscular Volume 79.5 fL (80.0-98.0); Mean Platelet Volume 8.4 fL (9.4-12.3); Monocytes Absolute Auto 0.9 X10*3/uL (0.1-1.2); Neutrophils Absolute Auto 7.1 x10*3/uL (2.0-8.3); Platelet Count 341 X10*3/uL (160-400); Red Blood Count 3.85 X10*6/uL (4.20-5.50); Red Cell Distribution Width 19.2 % (11.0-16.0)
[2022-01-22] MEDS: Pantoprazole Sodium 40 MG/10 ML VIAL IVPUSH (06:29)
[2022-01-22 06:39] LABS: Glucose, Whole Blood 111 mg/dL (60-115)
[2022-01-22] MEDS: Atorvastatin Calcium 80 MG TABLET PO (08:10)
[2022-01-22] MEDS: Magnesium Oxide 400 MG TABLET PO (08:10)
[2022-01-22] MEDS: Cyanocobalamin (Vitamin B-12) 1,000 MCG TABLET 5000 MCG PO (08:11)
[2022-01-22] MEDS: Cholecalciferol (Vitamin D3) 25 MCG TABLET 50 MCG PO (08:12)
[2022-01-22] MEDS: Escitalopram Oxalate 20 MG TABLET PO (08:12)
[2022-01-22] MEDS: Montelukast Sodium 10 MG TABLET PO (08:12)
[2022-01-22] MEDS: dilTIAZem HCL CD 240 MG CAP.ER.DEG PO (08:19)
[2022-01-22] MEDS: Valsartan 160 MG TABLET PO (08:19)
--- NOTE | 2022-01-22 10:10 | MHC.CM.PN ---
Met with patient in regards to discharge planning. Patient lives alone, uses a cane for mobility at times and had no services prior to coming to the hospital. No services anticipated to be needed because patient is not home bound. Patient has a HCP at home and will attempt to obtain a copy. PCP verified. Patient has received 2 Covid vaccines and 2 boosters. IMM epxlained and signed. Patient's vehicle is in the parking lot. Patient will drive herself home when medically stable. Continue to monitor for d/c needs.
[2022-01-22] MEDS: Fluticasone/Vilanterol 100/25 BLST.W.DEV 1 PUFF INHALE (10:45)
--- NOTE | 2022-01-22 12:32 | P.DS_ITS ---
DS: Providers Provider Date of Service: 01/22/22 Date of admission: 01/21/22 17:58 Primary care physician: Jamel Mansfield MD Consults: 01/21/22 18:26 Consult to Gastroenterology Routine Consulting Provider: Steven Haji Reason for consultation: acute on chronic blood loss anemia DS: Diagnosis Discharge Diagnosis (1) Symptomatic anemia: Status: Resolved (2) GI bleed: Status: Inactive (3) Microcytic anemia: Status: Inactive DS: Summary Hospital Course Hospital Course: Admission note HPI 81-year-old female with history of vne-uigdpuf-glmsvvydt type 2 diabetes with CKD stage 3 and peripheral arterial disease, hypertension, hyperlipidemia, hypomagnesia, PSVT, COPD, osteopenia, aortic stenosis, and chronic microcytic anemia presented to the emergency department earlier this afternoon from Hematology office due to symptomatic anemia.? She has been experiencing dyspnea on exertion, fatigue, lightheadedness worsening over the last 2 weeks but ongoing for several months.? She has had daily watery diarrhea with very dark solid pieces of stool with associated lower abdominal cramping.? She had been on aspirin for many years for the peripheral arterial disease and Plavix was added this year following stent procedure.? Aspirin was discontinued due to her anemia but was continued on Plavix.? H/H has continued to decline and was 7.7/27.2% today (was 12.4/40.5% in August 2021). Has history of GI bleed requiring blood transfusion and iron infusion in 2020. Has been on oral iron for years. Stool in ED was heme positive. No recent NSAID use. Dr. Haji has seen pt outpatient and case was discussed with him by ED provider. Hospital course The patient was admitted for evaluation of symptomatic anemia believed to be secondary to chronic GI loss from AVMs and antiplatelet therapy. Received total of 2 units of blood transfusion with improvement of hemoglobin level to 8.9 before the 2nd dose. Evaluated by braid maker who recommended to hold both Plavix and iron pills with a plan to do an outpatient colonoscopy and endoscopy. Patient felt comfortable with the plan and will be followed as outpatient with Gastroenterology office of Dr. Haji. Dr. Haji office will call you with a plan for the procedure Continue Plavix and iron for the time being, to hold once procedure time is set Come back to the hospital for any worsening shortness of breath or active bleeding. Time Spent with Patient Time attestation: Total time spent providing and/or coordinating discharge services: Discharge coordination time: Greater than 30 minutes Quality: Safe Use of Opioids Does Pt have an Active Cancer Diagnosis on the Problem List?: No Quality: Stroke Does the patient have a stroke diagnosis?: No Physical Exam Vital Signs: Vital Signs: Last Vital Signs Temp 97.9 F 01/22/22 09:57 Pulse 76 01/22/22 10:46 Resp 18 01/22/22 10:46 BP 158/68 H 01/22/22 09:57 Pulse Ox 92 01/22/22 07:05 O2 Del Method 01/22/22 07:05 BMI result Body Mass Index 33.5 Const: Other: Constitutional : Alert, oriented, not in distress Neck : Normal inspection, Supple Cardiovascular : RRR, no JVP, no lower extremity edema Respiratory : fair bilateral air entry, no crackles, wheezes or rhonchi Gastrointestinal: soft, lax, Normal bowel sounds, Non tender Skin : Warm, Dry Neurological : Alert & oriented x3, No focal deficit , CN 2-12 within normal DS: Data Data Completed and Pending Labs on day of discharge: Laboratory Results - last 24 hr 01/21/22 01/21/22 01/21/22 15:03 15:04 15:04 WBC 10.2 RBC 3.54 L Hgb 7.7 L Hct 27.2 L MCV 76.8 L MCH 21.8 L MCHC 28.3 L RDW 16.2 H Plt Count 369 MPV 8.5 L Immature Gran % (Auto) 0.4 Neut % (Auto) 80.1 H Lymph % (Auto) 6.0 L [place] % (Auto) 10.3 Eos % (Auto) 2.8 Baso % (Auto) 0.4 Lymph # (Auto) 0.6 L [place] # (Auto) 1.1 Eos # (Auto) 0.3 Baso # (Auto) 0.0 Abs Immat Gran (auto) 0.04 H Absolute Neuts (auto) 8.2 Absolute Nucleated RBC 0.000 Nucleated RBC % (auto) 0.0 PT 11.6 INR 1.0 APTT 29.1 Sodium Potassium Chloride Carbon Dioxide Anion Gap BUN Creatinine Estim Creat Clear Calc Estimated GFR POC Glucose Random Glucose Lactic Acid Calcium Iron TIBC % Saturation Unsat Iron Binding Total Bilirubin AST ALT Alkaline Phosphatase Troponin I High Sens Total Protein Albumin Lipase Stool Occult Blood COVID-19 ([facility]) COVID-19 Clin Com Blood Type O Positive Antibody Screen NEGATIVE Crossmatch See Detail 01/21/22 01/21/22 01/21/22 15:04 15:04 15:04 WBC RBC Hgb Hct MCV MCH MCHC RDW Plt Count MPV Immature Gran % (Auto) Neut % (Auto) Lymph % (Auto) [place] % (Auto) Eos % (Auto) Baso % (Auto) Lymph # (Auto) [place] # (Auto) Eos # (Auto) Baso # (Auto) Abs Immat Gran (auto) Absolute Neuts (auto) Absolute Nucleated RBC Nucleated RBC % (auto) PT INR APTT Sodium 140 Potassium 4.8 Chloride 109 H Carbon Dioxide 22 Anion Gap 14 BUN 24 H Creatinine 1.22 Estim Creat Clear Calc 35.4 Estimated GFR 42 POC Glucose Random Glucose 72 Lactic Acid 1.6 Calcium 9.5 Iron 96 TIBC 358 % Saturation 27 Unsat Iron Binding 262 Total Bilirubin 0.3 AST 8 ALT 9 Alkaline Phosphatase 75 Troponin I High Sens < 3.5 Total Protein 6.7 Albumin 3.8 Lipase 27 Stool Occult Blood COVID-19 ([facility]ARIO) COVID-[employer] Clin Com Blood Type Antibody Screen Crossmatch 01/21/22 01/21/22 01/21/22 15:04 15:05 21:40 WBC RBC Hgb Hct MCV MCH MCHC RDW Plt Count MPV Immature Gran % (Auto) Neut % (Auto) Lymph % (Auto) [place] % (Auto) Eos % (Auto) Baso % (Auto) Lymph # (Auto) [place] # (Auto) Eos # (Auto) Baso # (Auto) Abs Immat Gran (auto) Absolute Neuts (auto) Absolute Nucleated RBC Nucleated RBC % (auto) PT INR APTT Sodium Potassium Chloride Carbon Dioxide Anion Gap BUN Creatinine Estim Creat Clear Calc Estimated GFR POC Glucose 83 Random Glucose Lactic Acid Calcium Iron TIBC % Saturation Unsat Iron Binding Total Bilirubin AST ALT Alkaline Phosphatase Troponin I High Sens Total Protein Albumin Lipase Stool Occult Blood POSITIVE COVID-19 ([facility]) Negative COVID-19 Clin Com See Note Blood Type Antibody Screen Crossmatch 01/22/22 01/22/22 04:57 06:32 WBC 9.0 RBC 3.85 L Hgb 8.9 L Hct 30.6 L MCV 79.5 L MCH 23.1 L MCHC 29.1 L RDW 19.2 H Plt Count 341 MPV 8.4 L Immature Gran % (Auto) 0.4 Neut % (Auto) 79.0 H Lymph % (Auto) 6.3 L [place] % (Auto) 10.0 Eos % (Auto) 4.0 Baso % (Auto) 0.3 Lymph # (Auto) 0.6 L [place] # (Auto) 0.9 Eos # (Auto) 0.4 Baso # (Auto) 0.0 Abs Immat Gran (auto) 0.04 H Absolute Neuts (auto) 7.1 Absolute Nucleated RBC 0.000 Nucleated RBC % (auto) 0.0 PT INR APTT Sodium Potassium Chloride Carbon Dioxide Anion Gap BUN Creatinine Estim Creat Clear Calc Estimated GFR POC Glucose 111 Random Glucose Lactic Acid Calcium Iron TIBC % Saturation Unsat Iron Binding Total Bilirubin AST ALT Alkaline Phosphatase Troponin I High Sens Total Protein Albumin Lipase Stool Occult Blood COVID-19 ([facility]) COVID-19 Clin Com Blood Type Antibody Screen Crossmatch Discharge Plan Discharge Patient Disposition: Home, Self-Care Discharge Diagnosis: Symptomatic anemia secondary to chronic blood loss from GI bleed Referrals: Jamel Mansfield MD [Primary Care Provider] - 1 Week Discharge Medications: Continued montelukast 10 mg tablet 10 mg PO DAILY Qty: 90 1RF fluticasone propion-salmeterol [Advair Diskus] 250-50 mcg/dose blister with device 1 ea inhalation BID Qty: 60 3RF Januvia 50 mg tablet 1 tab PO DAILY atorvastatin [Lipitor] 80 mg tablet 80 mg PO DAILY metformin 500 mg Tablet Extended Release 24hr 500 mg PO BID valsartan 160 mg Tablet 160 mg PO DAILY trazodone 50 mg tablet 50 mg PO BEDTIME mirtazapine 15 mg tablet 15 mg PO BEDTIME diltiazem HCl 240 mg capsule,ext.rel 24h degradable 240 mg PO DAILY albuterol sulfate [ProAir HFA] 90 mcg/actuation HFA aerosol inhaler 2 puff inhalation .4 times a day PRN (Reason: shortness of breath or wheezing) ferrous sulfate [Feosol] 325 mg (65 mg iron) tablet 325 mg PO DAILY Hold Instructions: Dr Haji to decide citalopram [Celexa] 20 mg tablet 40 mg PO DAILY clopidogrel 75 mg tablet 75 mg PO DAILY Hold Instructions: Dr Haji to decide magnesium 200 mg tablet 400 mg PO DAILY mecobalamin (vitamin B12) 5,000 mcg tablet,disintegrating 5,000 mcg PO DAILY cholecalciferol (vitamin D3) 50 mcg (2,000 unit) capsule 50 mcg PO DAILY 90 Days Qty: 90 2RF Changed lansoprazole [Prevacid] 30 mg capsule,delayed release(DR/EC) 30 mg PO BID 30 Days Qty: 60 0RF Discharge Orders: Discharge Order (Routine); Ordered 01/22/22 Ordered By: Sarah Tyler Diet: Advance to usual diet Activity on Discharge: As tolerated Stand Alone Forms: Patient Portal Discharge page Care Plan Goals: Read below Health Concerns: Read below Plan of Treatment: Read below Assessment: You were admitted to the hospital for evaluation if symptomatic anemia. Secondary to chronic GI bleed. Received 2 units of blood transfusion with good response. Evaluated by Dr. Haji from Gastroenterology who recommended to continue Plavix and iron pills until procedure is set. Dr. Haji office will call you with a plan for the procedure Continue Plavix and iron for the time being, to hold once procedure time is set Come back to the hospital for any worsening shortness of breath or active bleeding. Discharge Date/Time: 01/22/22 13:35
== END 2022-01-22 13:35 | disposition home or self-care (01) | DRG 813 ==
LOC: HO.ED 16:57 → HO.EDOVER 18:07
PROVIDERS: Admitting Provider Physician Assistant; Emergency Provider Emergency Medicine Emergency Medical Services; PCP Internal Medicine; Visit Provider Student in an Organized Health Care Education/Training Program
DX: D68.32 Hemorrhagic disorder due to extrinsic circulating anticoagulants (principal); K55.21 Angiodysplasia of colon with hemorrhage; I12.9 Hypertensive chronic kidney disease with stage 1 through stage 4 chronic kidney disease, or unspecified chronic kidney disease; N18.30 Chronic kidney disease, stage 3 unspecified; E11.22 Type 2 diabetes mellitus with diabetic chronic kidney disease; E11.51 Type 2 diabetes mellitus with diabetic peripheral angiopathy without gangrene; M10.9 Gout, unspecified; J44.9 Chronic obstructive pulmonary disease, unspecified; E78.5 Hyperlipidemia, unspecified; D50.0 Iron deficiency anemia secondary to blood loss (chronic); T45.525A Adverse effect of antithrombotic drugs, initial encounter; F32.A Depression, unspecified; K52.9 Noninfective gastroenteritis and colitis, unspecified; D63.1 Anemia in chronic kidney disease; Z20.822 Contact with and (suspected) exposure to COVID-19; Z91.041 Radiographic dye allergy status; Z88.0 Allergy status to penicillin; Z79.02 Long term (current) use of antithrombotics/antiplatelets; Z79.84 Long term (current) use of oral hypoglycemic drugs; Z79.899 Other long term (current) drug therapy
CPT/HCPCS: 36415; 36430; 80053; 82272; 82947; 83540; 83605; 83690; 84484; 85025; 85610; 85730; 86850; 86900; 86901; 86923; 87635; 93005; 94640; 99285; P9016

== ENCOUNTER 2022-01-27 11:10 | Outpatient (REF) | payer MEDICARE, OTHER, SELFPAY ==
[2022-01-27 13:39] LABS: MANUAL DIFF FLAG NO
[2022-01-27 13:54] LABS: Basophils Absolute Auto 0.1 X10*3/uL (0.0-0.2); Basophils Percent Auto 0.7 % (0-2); Eosinophils Absolute Auto 0.3 X10*3/uL (0.0-0.4); Hematocrit 35.1 % (37.0-47.0); Hemoglobin 10.4 g/dl (12.0-16.0); Imm Gran Abs Auto 0.02 X10*3/uL (0.00-0.03); Imm Gran Pct Auto 0.3 % (0.0-0.4); Lymphocytes Absolute Auto 0.6 X10*3/uL (1.2-4.9); Lymphocytes Percent Auto 7.6 % (20-40); Mean Corpuscular HGB Conc 29.6 g/dl (31.0-35.0); Mean Corpuscular Hemoglobin 23.5 pg (27.0-33.0); Mean Corpuscular Volume 79.4 fL (80.0-98.0); Mean Platelet Volume 8.5 fL (9.4-12.3); Monocytes Absolute Auto 0.7 X10*3/uL (0.1-1.2); Monocytes Percent Auto 9.1 % (2-11); Neutrophils Absolute Auto 5.8 x10*3/uL (2.0-8.3); Neutrophils Percent Auto 78.3 % (45-73); Platelet Count 342 X10*3/uL (160-400); Red Blood Count 4.42 X10*6/uL (4.20-5.50); Red Cell Distribution Width 19.2 % (11.0-16.0); White Blood Count 7.5 X10*3/uL (4.8-10.8)
[2022-01-27 14:40] LABS: Folate 13.1 ng/mL (> or = 4.0); Vitamin B12 > 2000 pg/mL (200-900)
== END 2022-01-27 11:11 | disposition home or self-care (01) ==
LOC: HO.10HDL 11:10
PROVIDERS: Internal Medicine Medical Oncology; Visit Provider Internal Medicine
DX: D50.9 Iron deficiency anemia, unspecified (principal); R19.5 Other fecal abnormalities; K55.20 Angiodysplasia of colon without hemorrhage
CPT/HCPCS: 36415; 82607; 82746; 85025

== ENCOUNTER 2022-02-26 13:02 | Outpatient (REF) | payer MEDICARE, OTHER, SELFPAY ==
[2022-02-26 15:02] LABS: MANUAL DIFF FLAG NO
[2022-02-26 15:08] LABS: Basophils Absolute Auto 0.1 X10*3/uL (0.0-0.2); Basophils Percent Auto 0.8 % (0-2); Eosinophils Absolute Auto 0.4 X10*3/uL (0.0-0.4); Eosinophils Percent Auto 4.9 % (0-4); Hematocrit 35.4 % (37.0-47.0); Hemoglobin 10.8 g/dl (12.0-16.0); Imm Gran Abs Auto 0.03 X10*3/uL (0.00-0.03); Imm Gran Pct Auto 0.4 % (0.0-0.4); Lymphocytes Absolute Auto 0.9 X10*3/uL (1.2-4.9); Lymphocytes Percent Auto 11.9 % (20-40); Mean Corpuscular HGB Conc 30.5 g/dl (31.0-35.0); Mean Corpuscular Hemoglobin 25.8 pg (27.0-33.0); Mean Corpuscular Volume 84.5 fL (80.0-98.0); Monocytes Absolute Auto 0.8 X10*3/uL (0.1-1.2); Monocytes Percent Auto 9.5 % (2-11); Neutrophils Absolute Auto 5.7 x10*3/uL (2.0-8.3); Neutrophils Percent Auto 72.5 % (45-73); Platelet Count 360 X10*3/uL (160-400); Red Blood Count 4.19 X10*6/uL (4.20-5.50); Red Cell Distribution Width 20.5 % (11.0-16.0); White Blood Count 7.9 X10*3/uL (4.8-10.8)
[2022-02-26 15:26] LABS: Iron 90 mcg/dL (30-160); Percent Iron Saturation 27 % (15-50); Total Iron Binding Capacity 328 mcg/dL (228-428); Unsaturated Iron Binding 238 ug/dL
[2022-02-26 15:45] LABS: Ferritin 24 ng/mL (10-250)
== END 2022-02-26 13:03 | disposition home or self-care (01) ==
LOC: HO.HMGCLDS 13:02
PROVIDERS: PCP Internal Medicine; Visit Provider Internal Medicine
DX: D64.9 Anemia, unspecified (principal)
CPT/HCPCS: 36415; 82728; 83540; 85025

== ENCOUNTER → 2022-03-24 13:17 | Outpatient (BNVA) | payer MEDICARE, OTHER, SELFPAY | PROVIDERS: PCP Internal Medicine; Visit Provider Internal Medicine | DX: J44.9 Chronic obstructive pulmonary disease, unspecified (principal); J30.9 Allergic rhinitis, unspecified; B37.0 Candidal stomatitis | CPT/HCPCS: 99212 ==

== ENCOUNTER 2022-04-07 10:34 | Outpatient (REF) | payer MEDICARE, OTHER, SELFPAY ==
[2022-04-07 11:45] LABS: MANUAL DIFF FLAG NO
[2022-04-07 11:58] LABS: Basophils Absolute Auto 0.1 X10*3/uL (0.0-0.2); Basophils Percent Auto 0.8 % (0-2); Eosinophils Absolute Auto 0.4 X10*3/uL (0.0-0.4); Estimated Average Glucose 123 mg/dL; Hematocrit 39.6 % (37.0-47.0); Hemoglobin A1C 133.2896 umol/L; Hemoglobin A1c % 5.9 %; Imm Gran Abs Auto 0.02 X10*3/uL (0.00-0.03); Imm Gran Pct Auto 0.3 % (0.0-0.4); Lymphocytes Absolute Auto 0.9 X10*3/uL (1.2-4.9); Lymphocytes Percent Auto 13.5 % (20-40); Mean Corpuscular HGB Conc 30.3 g/dl (31.0-35.0); Mean Corpuscular Hemoglobin 26.3 pg (27.0-33.0); Mean Corpuscular Volume 86.7 fL (80.0-98.0); Mean Platelet Volume 9.3 fL (9.4-12.3); Monocytes Absolute Auto 0.5 X10*3/uL (0.1-1.2); Monocytes Percent Auto 8.1 % (2-11); Neutrophils Absolute Auto 4.4 x10*3/uL (2.0-8.3); Neutrophils Percent Auto 70.3 % (45-73); Platelet Count 329 X10*3/uL (160-400); Red Blood Count 4.57 X10*6/uL (4.20-5.50); Red Cell Distribution Width 16.4 % (11.0-16.0); White Blood Count 6.3 X10*3/uL (4.8-10.8)
[2022-04-07 13:27] LABS: Alanine Aminotransferase 14 U/L (0-31); Albumin Level 3.9 g/dL (3.5-5.0); Alkaline Phosphatase 87 U/L (39-117); Anion Gap 14 (12-20); Aspartate Amino Transferase 10 U/L (5-31); Bilirubin Total 0.4 mg/dL (0.0-1.0); Blood Urea Nitrogen 23 mg/dL (9-16); Calcium 9.9 mg/dL (8.4-10.2); Carbon Dioxide 25 mmol/L (22-29); Chloride 105 mmol/L (96-108); Cholesterol 160 mg/dL; Estimated Glomerular Filt Rate 44; Glucose Fasting 135 mg/dL (60-99); HDL Cholesterol 38 mg/dL; LDL Cholesterol Calculated 96 mg/dl; Potassium 4.8 mmol/L (3.3-5.1); Sodium 139 mmol/L (135-145); TSH reflex Free T4 0.63 uIU/mL (0.32-4.0); Triglycerides 130 mg/dL; Uric Acid 6.9 mg/dL (2.4-5.7); Vitamin D 25-OH Total 41.5 ng/mL (>30)
[2022-04-07 13:29] LABS: Ferritin 46 ng/mL (10-250); Iron 43 mcg/dL (30-160); Percent Iron Saturation 16 % (15-50); Total Iron Binding Capacity 267 mcg/dL (228-428); Unsaturated Iron Binding 224 ug/dL
[2022-04-07 14:04] LABS: Appearance Urine Clear; Color Urine Yellow; Glucose Urine UA Negative (Negative); Leukocyte Esterase Urine Small (1+) (Negative); Nitrite Urine Negative (Negative); Specific Gravity - Urine 1.015 (1.005-1.025); UMIC TRIGGER UACC YES; Urine Blood Negative (Negative); Urine Ketones Negative (Negative); Urine Protein Negative (Neg-Trace)
[2022-04-07 14:13] LABS: Bacteria Urine Trace (None Seen); Hyaline Casts Urine 0-2 /LPF (0-2); RBC Urine 0-2 /HPF (0-2); UACC Culture Trigger YES; WBC Urine 0-5 /HPF (0-5)
[2022-04-07 15:05] LABS: Creatinine Urine 80.52 mg/dL
== END 2022-04-07 10:35 | disposition home or self-care (01) ==
LOC: HO.HMGCLDS 10:34
PROVIDERS: Absent Provider Internal Medicine; PCP Internal Medicine; Visit Provider Internal Medicine
DX: E78.00 Pure hypercholesterolemia, unspecified (principal); I10 Essential (primary) hypertension; E11.9 Type 2 diabetes mellitus without complications; E55.9 Vitamin D deficiency, unspecified; M10.9 Gout, unspecified; D64.9 Anemia, unspecified; R30.0 Dysuria
CPT/HCPCS: 36415; 80053; 80061; 81001; 81003; 82043; 82306; 82728; 83036; 83540; 84443; 84550; 85025; 87086

== ENCOUNTER 2022-04-20 14:16 | Outpatient (REF) | payer MEDICARE, OTHER, SELFPAY ==
--- NOTE | ~2022-04-20 | XR_ITS ---
EXAMINATION: XR LUMBOSACRAL SPINE CLINICAL INFORMATION: Low back pain COMPARISON: 06/27/2019 TECHNIQUE: Three views of the lumbosacral spine. FINDINGS: No acute fracture or traumatic malalignment. Vertebral body heights maintained. Mild retrolisthesis of L1 over L2 mild (grade 1) anterolisthesis of L4 over L5. Facet arthropathy present from L3 through S1. Near-complete obliteration of disc space at L5-S1 and milder loss of disc space height throughout the remainder of the lumbar spine, accompanied by endplate osteophytes which are most pronounced at L1-L2 and L5-S1. Paraspinal soft tissues unremarkable. Aortobiiliac endovascular stent graft repair XR/XR lumbar spine 2-3V IMPRESSION: * No acute fracture or traumatic malalignment. * Lumbar spondylosis as described, without significant change from prior trauma radiographic standpoint.
== END 2022-04-20 14:17 | disposition home or self-care (01) ==
LOC: HO.XRAY 14:16
PROVIDERS: PCP Internal Medicine; Visit Provider Internal Medicine
DX: M54.50 Low back pain, unspecified (principal)
CPT/HCPCS: 72100

== ENCOUNTER 2022-04-21 13:26 | Outpatient (REF) | payer SELFPAY | END 2022-04-21 13:27 | disposition home or self-care (01) | LOC: HO.HAP 13:26 | PROVIDERS: Visit Provider Internal Medicine | DX: Z13.89 Encounter for screening for other disorder (principal) ==

== ENCOUNTER 2022-04-29 16:06 | Outpatient (REF) | payer MEDICARE, OTHER, SELFPAY ==
--- NOTE | ~2022-04-29 | MM_ITS ---
EXAMINATION: MM SCREENING DIGITAL BREAST TOMOSYNTHESIS, BILATERAL CLINICAL INFORMATION: Screening. Asymptomatic. The lifetime risk of breast cancer based on the Tyrer-Cuzick Model is 1%. COMPARISON: Mammography: 04/29/2021, 04/22/2021, 04/15/2020, 02/09/2019 TECHNIQUE: Digital breast tomosynthesis is performed in both the craniocaudal and mediolateral oblique views along with computer-aided detection (CAD). Synthesized 2D images are generated from the tomosynthesis. FINDINGS: There are scattered areas of fibroglandular density (ACR BI-RADS breast composition Category b). There is fibronodular parenchymal pattern similar to prior exams. No developing density or architectural abnormality or significant mass. Again, there is a large benign left chest wall intramuscular lipoma with circumscribed thin capsular margin. Bilateral scattered benign round and coarse and vascular calcifications are again noted. The skin contours are smooth. No significant changes. MM/MM tomosynthesis screening BI IMPRESSION: No mammographic evidence of malignancy. ASSESSMENT: BI-RADS 2: Benign RECOMMENDATION: Routine annual mammography screening. This patient's information was entered into a reminder system with a target due date for their next mammogram.
== END 2022-04-29 16:07 | disposition home or self-care (01) ==
LOC: HO.MAMMO 16:06
PROVIDERS: PCP Internal Medicine; Visit Provider Internal Medicine
DX: Z12.31 Encounter for screening mammogram for malignant neoplasm of breast (principal)
CPT/HCPCS: 77063; 77067

== ENCOUNTER 2022-05-01 11:02 | Outpatient (REF) | payer SELFPAY | END 2022-05-01 11:03 | disposition home or self-care (01) | LOC: HO.HAP 11:02 | PROVIDERS: Visit Provider Internal Medicine | DX: Z46.1 Encounter for fitting and adjustment of hearing aid (principal); H90.3 Sensorineural hearing loss, bilateral | CPT/HCPCS: V5299 ==

== ENCOUNTER 2022-06-04 13:43 | Outpatient (REF) | payer MEDICARE, OTHER, SELFPAY ==
[2022-06-04 16:38] LABS: MANUAL DIFF FLAG NO
[2022-06-04 17:02] LABS: Basophils Absolute Auto 0.1 X10*3/uL (0.0-0.2); Basophils Percent Auto 0.7 % (0-2); Eosinophils Absolute Auto 0.4 X10*3/uL (0.0-0.4); Eosinophils Percent Auto 5.7 % (0-4); Hematocrit 40.7 % (37.0-47.0); Imm Gran Abs Auto 0.02 X10*3/uL (0.00-0.03); Imm Gran Pct Auto 0.3 % (0.0-0.4); Lymphocytes Absolute Auto 0.7 X10*3/uL (1.2-4.9); Lymphocytes Percent Auto 10.6 % (20-40); Mean Corpuscular HGB Conc 31.9 g/dl (31.0-35.0); Mean Corpuscular Hemoglobin 28.4 pg (27.0-33.0); Mean Corpuscular Volume 89.1 fL (80.0-98.0); Mean Platelet Volume 8.9 fL (9.4-12.3); Monocytes Absolute Auto 0.6 X10*3/uL (0.1-1.2); Neutrophils Absolute Auto 5.1 x10*3/uL (2.0-8.3); Neutrophils Percent Auto 73.7 % (45-73); Platelet Count 309 X10*3/uL (160-400); Red Blood Count 4.57 X10*6/uL (4.20-5.50); Red Cell Distribution Width 14.4 % (11.0-16.0)
[2022-06-04 17:20] LABS: Iron 47 mcg/dL (30-160); Percent Iron Saturation 18 % (15-50); Total Iron Binding Capacity 261 mcg/dL (228-428); Unsaturated Iron Binding 214 ug/dL
[2022-06-04 17:35] LABS: Ferritin 70 ng/mL (10-250)
== END 2022-06-04 13:44 | disposition home or self-care (01) ==
LOC: HO.HMGCLR 13:43
PROVIDERS: PCP Internal Medicine; Visit Provider Internal Medicine
DX: D64.9 Anemia, unspecified (principal)
CPT/HCPCS: 36415; 82728; 83540; 85025

== ENCOUNTER 2022-07-30 11:04 | Outpatient (REF) | payer MEDICARE, OTHER, SELFPAY ==
[2022-07-30 14:14] LABS: Appearance Urine Clear; Color Urine Yellow; Glucose Urine UA Negative (Negative); Leukocyte Esterase Urine Small (1+) (Negative); Nitrite Urine Negative (Negative); UMIC TRIGGER UACC YES; Urine Blood Negative (Negative); Urine Ketones Negative (Negative); Urine Protein 30 (1+) mg/dL (Neg-Trace)
[2022-07-30 14:17] LABS: MANUAL DIFF FLAG NO
[2022-07-30 14:28] LABS: Bacteria Urine Trace (None Seen); Hyaline Casts Urine 0-2 /LPF (0-2); RBC Urine 0-2 /HPF (0-2); UACC Culture Trigger YES; WBC Urine 0-5 /HPF (0-5)
[2022-07-30 14:30] LABS: Basophils Percent Auto 0.4 % (0-2); Eosinophils Absolute Auto 0.4 X10*3/uL (0.0-0.4); Eosinophils Percent Auto 5.2 % (0-4); Hematocrit 42.7 % (37.0-47.0); Hemoglobin 13.7 g/dl (12.0-16.0); Imm Gran Abs Auto 0.03 X10*3/uL (0.00-0.03); Imm Gran Pct Auto 0.4 % (0.0-0.4); Lymphocytes Absolute Auto 0.6 X10*3/uL (1.2-4.9); Lymphocytes Percent Auto 8.7 % (20-40); Mean Corpuscular HGB Conc 32.1 g/dl (31.0-35.0); Mean Corpuscular Hemoglobin 28.1 pg (27.0-33.0); Mean Corpuscular Volume 87.5 fL (80.0-98.0); Mean Platelet Volume 8.8 fL (9.4-12.3); Monocytes Absolute Auto 0.6 X10*3/uL (0.1-1.2); Monocytes Percent Auto 8.8 % (2-11); Neutrophils Absolute Auto 5.5 x10*3/uL (2.0-8.3); Neutrophils Percent Auto 76.5 % (45-73); Platelet Count 314 X10*3/uL (160-400); Red Blood Count 4.88 X10*6/uL (4.20-5.50); Red Cell Distribution Width 13.8 % (11.0-16.0); White Blood Count 7.2 X10*3/uL (4.8-10.8)
[2022-07-30 14:39] LABS: Estimated Average Glucose 151 mg/dL; Hemoglobin A1c % 6.9 %
[2022-07-30 14:57] LABS: Iron 66 mcg/dL (30-160); Percent Iron Saturation 25 % (15-50); Total Iron Binding Capacity 259 mcg/dL (228-428); Unsaturated Iron Binding 193 ug/dL
[2022-07-30 14:59] LABS: Alanine Aminotransferase 14 U/L (0-31); Albumin Level 3.9 g/dL (3.5-5.0); Alkaline Phosphatase 86 U/L (39-117); Anion Gap 12 (12-20); Aspartate Amino Transferase 11 U/L (5-31); Bilirubin Total 0.6 mg/dL (0.0-1.0); Blood Urea Nitrogen 21 mg/dL (9-16); Calcium 9.6 mg/dL (8.4-10.2); Carbon Dioxide 25 mmol/L (22-29); Chloride 106 mmol/L (96-108); Cholesterol 152 mg/dL; Estimated Glomerular Filt Rate 43; Glucose Fasting 156 mg/dL (60-99); HDL Cholesterol 35 mg/dL; LDL Cholesterol Calculated 96 mg/dl; Potassium 4.4 mmol/L (3.3-5.1); Sodium 139 mmol/L (135-145); Total Protein 6.7 g/dL (6.5-8.0); Triglycerides 107 mg/dL; Uric Acid 7.6 mg/dL (2.4-5.7)
[2022-07-30 15:10] LABS: Creatinine Urine 138.16 mg/dL
[2022-07-30 15:17] LABS: Ferritin 64 ng/mL (10-250)
[2022-07-30 15:32] LABS: Folate 11.3 ng/mL (> or = 4.0); TSH reflex Free T4 0.39 uIU/mL (0.32-4.0); Vitamin B12 > 2000 pg/mL (200-900); Vitamin D 25-OH Total 39.9 ng/mL (>30)
== END 2022-07-30 11:05 | disposition home or self-care (01) ==
LOC: HO.HMGCLR 11:04
PROVIDERS: Absent Provider Internal Medicine; PCP Internal Medicine; Visit Provider Internal Medicine
DX: E78.00 Pure hypercholesterolemia, unspecified (principal); E11.9 Type 2 diabetes mellitus without complications; E55.9 Vitamin D deficiency, unspecified; E53.8 Deficiency of other specified B group vitamins; I10 Essential (primary) hypertension; M10.9 Gout, unspecified; D64.9 Anemia, unspecified; R82.90 Unspecified abnormal findings in urine
CPT/HCPCS: 36415; 80053; 80061; 81001; 82043; 82306; 82607; 82728; 82746; 83036; 83540; 84443; 84550; 85025; 87086

== ENCOUNTER 2022-08-08 22:52 | Inpatient (IN) | payer MEDICARE, OTHER, SELFPAY ==
--- NOTE | ~2022-08-08 | XR_ITS ---
EXAMINATION: XR CHEST CLINICAL INFORMATION: Chest pain COMPARISON: 11/23/2019 TECHNIQUE: Frontal view of the chest was obtained. FINDINGS: Leads overlie the chest. Mild interstitial prominence. No dense consolidation. No pleural effusion or pneumothorax. The cardiomediastinal silhouette remains prominent, with a calcified aorta. XR/XR chest 1V IMPRESSION: Mild interstitial prominence could be associated with mild edema. No dense consolidation.
--- NOTE | 2022-08-08 22:53 | ECG_ITS ---
Test Reason : chest pain Blood Pressure : / mmHG Vent. Rate : 097 BPM Atrial Rate : 097 BPM P-R Int : 176 ms QRS Dur : 080 ms QT Int : 392 ms P-R-T Axes : 000 -24 027 degrees QTc Int : 497 ms Sinus rhythm with Premature atrial complexes Inferior infarct (cited on or before 21-JAN-2022) Cannot rule out Anterior infarct , age undetermined Abnormal ECG When compared with ECG of 21-JAN-2022 14:22, Premature atrial complexes are now Present QT has lengthened Referred By: Justo Payan Electronically Signed By:JUAN MATUTE MD
--- NOTE | 2022-08-08 22:58 | ED_ITS ---
HPI - Chest Pain General Chief Complaint: Chest Pain Stated Complaint: CHEST PAIN Time Seen by Provider: 08/08/22 23:50 Source: EMS Mode of arrival: EMS Limitations: no limitations History of Present Illness HPI narrative: This is a an 81-year-old female history of chronic low back pain, exertional dyspnea, osteopenia, obesity, valvular heart disease on clopidogrel, depression, anxiety, anemia, GERD, hypercholesterolemia, hypertension, PSVT, PACs, COPD, CKD, diabetes presenting to the emergency department for complaints of substernal chest pressure that started about an hour ago, lasted 40 minutes and has now resolved. She tells me about an hour ago she was experiencing substernal chest pressure, nonradiating, tells me was a 4 to 5/10, patient took aspirin at home and symptoms subsided. Patient tells me she short of breath at baseline however has been having increasing shortness of breath over the past few days. Was recently started on Lasix for increasing shortness of breath. Patient tells me she is pain-free completely at this time and is only experiencing shortness of breath. Denies URI symptoms, no lower extremity swelling, nausea, vomiting, abdominal pain, numbness, tingling, headache, vision changes, dizziness and weakness. Followed by cardiology at [facility], last echo aout 2-3 months ago. Related Data Home Medications Medication Instructions Recorded Confirmed albuterol sulfate 90 mcg/actuation 2 puff inhalation .4 times a day 03/13/20 08/05/22 aerosol inhaler (ProAir HFA) PRN shortness of breath or wheezing diltiazem HCl 240 mg 240 mg PO DAILY 03/13/20 08/05/22 capsule,extended release 24 hr, controlled mirtazapine 15 mg tablet 15 mg PO BEDTIME 03/13/20 08/05/22 trazodone 50 mg tablet 50 mg PO BEDTIME 03/13/20 08/05/22 magnesium 200 mg tablet 400 mg PO DAILY 05/29/20 08/05/22 mecobalamin (vitamin B12) 5,000 5,000 mcg PO DAILY 05/29/20 08/05/22 mcg disintegrating tablet clopidogrel 75 mg tablet 75 mg PO DAILY 08/28/20 08/05/22 citalopram 20 mg tablet (Celexa) 40 mg PO DAILY 11/26/20 08/05/22 valsartan 160 mg tablet 160 mg PO DAILY 01/21/22 08/05/22 ferrous sulfate 325 mg (65 mg 325 mg PO BID 03/24/22 08/05/22 iron) tablet (Feosol) lansoprazole 30 mg capsule,delayed 30 mg PO DAILY 03/24/22 08/05/22 release (Prevacid) Previous Rx's Medication Instructions Recorded cholecalciferol (vitamin D3) 50 50 mcg PO DAILY 90 days #90 caps 11/26/20 mcg (2,000 unit) capsule montelukast 10 mg tablet 10 mg PO DAILY #90 tabs 02/23/22 allopurinol 100 mg tablet 100 mg PO DAILY 90 days #90 tabs 03/24/22 atorvastatin 80 mg tablet (Lipitor) 80 mg PO DAILY #90 tabs 05/28/22 Advair Diskus 250 mcg-50 mcg/dose 1 ea inhalation BID #60 ea 06/21/22 powder for inhalation (fluticasone propion-salmeterol) Januvia 100 mg tablet (sitagliptin 100 mg PO DAILY 30 days #30 tabs 07/16/22 phosphate) glimepiride 1 mg tablet 1 mg PO QAM 30 days #30 tabs 08/05/22 Allergies Allergy/AdvReac Type Severity Reaction Status Date / Time Iodinated Contrast Media Allergy Severe HIVE Verified 08/05/22 14:44 [IV DYE, IODINE CONTAINING CONTRAST ] Penicillins [PENICILLINS] Allergy Severe HIVES Verified 08/05/22 14:44 Review of Systems Review of Systems: Constitutional : No Weight loss, No Fever, No Chills, No Fatigue, No Malaise ENT/Mouth : No sore throat, No Rhinorrhea Eyes: No Eye Pain, No Swelling, No Redness Cardiovascular : No Chest Pain, + SOB, + Dyspnea on Exertion, No Orthopnea, No Edema, No Palpitations Respiratory : No Cough, No Sputum, No Wheezing Gastrointestinal : No Nausea, No Vomiting, No Diarrhea, No Constipation, No abdominal Pain, No Hematochezia, No Melena Genitourinary : No Dysuria, No Urinary Frequency, No Hematuria, Musculoskeletal : No joint pain, No Myalgias, No Joint Swelling Skin : No Skin Lesions, No rash Neuro : No Weakness, No Numbness, No Dizziness, No Headache Psych : No Anxiety/Panic, No Depression All other systems reviewed and are negative Yes all other systems are reviewed and are negative [facility] Past Medical History Attestation statement: The following information was validated with the patient. Source: old records reviewed and nursing notes reviewed Medical History Allergic rhinitis Anemia Anxiety Benign essential hypertension Chronic kidney disease (CKD), stage III (moderate) COPD (chronic obstructive pulmonary disease) Depression Exertional dyspnea GERD without esophagitis GI bleed Gout Hearing impairment Hemorrhagic cystitis Hypomagnesemia Microcytic anemia Multiple thyroid nodules Obesity (BMI 30-39.9) Obesity (BMI 30-39.9) Occult blood positive stool Osteoarthritis of ankle and foot Osteopenia PAC (premature atrial contraction) Peripheral vascular disease PSVT (paroxysmal supraventricular tachycardia) Pure hypercholesterolemia Sciatica of right side Thrush, oral 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 Valvular heart disease Vitamin D deficiency Surgical History History of angioplasty of peripheral vessel (~08/13/20) History of appendectomy History of biopsy History of bladder surgery History of cataract surgery History of colonoscopy History of hysterectomy History of neck surgery History of tonsillectomy and adenoidectomy Family History Family History Father Stroke CVD (cardiovascular disease) Mother CVD (cardiovascular disease) Hypertension CAD (coronary artery disease) Other Mental health disorder Social History Social History Household Members: None Housing: Condominium Alcohol intake: current Alcohol intake frequency: holidays/special occasions only Alcohol type: beer and hard liquor Patient Tobacco Use Status: Former Tobacco user Quit Date: 1999 Tobacco use type: Cigarette e-Cigarette/Vaping Use: Never Used Second Hand Smoke Exposure: Yes Advance Directives: No Advance Directives Information Provided: Yes service: No Current occupational status: retired Cognitive needs: Yes (cane) Hearing needs: Yes Vision needs: Yes Physical Exam Vital Signs: Vital Signs: Last Vital Signs Temp 98.1 F 08/08/22 23:06 Pulse 93 08/08/22 23:06 Resp 20 08/08/22 23:06 BP 175/87 H 08/08/22 23:06 Pulse Ox 94 08/08/22 23:06 O2 Del Method Room Air 08/08/22 23:06 BMI result Body Mass Index 35.6 vss Appearance: Alert.? Oriented X3.? No acute distress.? Head: Normocephalic, atraumatic, no step-offs or deformities Eyes: Pupils equal, round and reactive to light.? CVS: Normal heart rate and rhythm.? Pulses normal.? Respiratory: No respiratory distress.? Breath sounds normal.? Abdomen: Soft and nontender.? Skin: Skin warm and dry.? Normal skin color.? Normal skin turgor.? Extremities: No lower extremity edema.? No calf ttp, negative Jorge bilaterally. 5/5 strength to bilateral upper and lower extremities Back: No midline tenderness, no C-spine tenderness, full range of motion, no CVA tenderness bilaterally Neuro: Oriented X 3.? No motor deficit.? No sensory deficit. CN 2-12 intact Course Reevaluation(s) Reevaluation #1: CBC with no acute findings. Chemistry with sodium of 134 and an acute kidney injury deviating slightly from patient's baseline likely secondary to dehydration will hydrate with IV fluids. Troponin negative, EKG nonischemic unlikely ACS. BNP 252, no previous to compare with however, no signs of acute fluid overload on exam will give 20 mg of IVP lasix at this time as I will hydrate patient for MARBELLA and repeat BMP. Coags unremarkable. D-dimer 230, age adjusted D-dimer 820 VTE unlikely no need for CTA, also low clinical suspicion for PE patient saturating 94% on RA, not tachycardic or tachypneic. COVID & CXR pending Time: 23:54 Reevaluation #2: X-ray with mild interstitial prominence could be associated with mild edema. No dense consolidation. Lungs are clear to auscultation however imaging showing mild prominence concerns for possible CHF. Time: 00:11 Reevaluation #3: Discussed this case with hospitalist will admit patient for further evaluation and treatment. Repeat BNP, BMP and troponin ordered. Time: 01:19 Medications Administered Discontinued Medications Generic Name Dose Route Start Last Admin Trade Name Freq PRN Reason Stop Dose Admin Furosemide 20 mg 08/08/22 23:58 08/09/22 00:02 Furosemide 20 Mg/2 Ml Vial IVPUSH 08/08/22 23:59 20 mg ONCE ONE Administration Protocol Sodium Chloride 1,000 mls @ 999 mls/hr 08/08/22 23:45 08/08/22 23:59 Ns IV 08/09/22 00:45 999 mls/hr .Q1H1M LETICIA Administration Medical Decision Making Medical Decision Making [facility] Narrative: 2300 81-year-old female presents with chest pain and shortness of breath, chest pain lasted 40 minutes and has now resolved, shortness of breath at baseline however worsening over the past day. Recently started Lasix. Not on blood thinners, only takes clopidogrel. Took aspirin prior to arrival appear Physical exam benign. Negative Jorge bilaterally. Vital signs stable. Patient well appearing. Concerns for possible CHF. Unlikely PE, pneumonia, ACS, AAA, arterial or venous occlusion. Other differentials include viral illness Plan at this time labs, imaging, EKG, urine, viral testing. Differential Diagnosis Differential Diagnoses: The differential diagnosis associated with the presentation includes Concerns for possible CHF. Unlikely PE, pneumonia, ACS, AAA, arterial or venous occlusion. Other differentials include viral illness Admission/Observation Consideration of admission/observation: Escalation of care including admission/observation considered Unlikely Lab Data MDM Lab Attestation statement: I reviewed the patient's lab results. 08/08/22 23:22 08/08/22 23:22 Labs: Lab Results 08/08/22 08/08/22 08/08/22 Range/Units 23:22 23:22 23:22 WBC 8.8 (4.8-10.8) X10*3/uL RBC 4.31 (4.20-5.50) X10*6/uL Hgb 12.3 (12.0-16.0) g/dl Hct 37.2 (37.0-47.0) % MCV 86.3 (80.0-98.0) fL MCH 28.5 (27.0-33.0) pg MCHC 33.1 (31.0-35.0) g/dl RDW 13.9 (11.0-16.0) % Plt Count 249 (160-400) X10*3/uL MPV 8.2 L (9.4-12.3) fL Immature Gran % (Auto) 0.6 H (0.0-0.4) % Neut % (Auto) 72.5 (45-73) % Lymph % (Auto) 11.9 L (20-40) % [place] % (Auto) 9.4 (2-11) % Eos % (Auto) 5.0 H (0-4) % Baso % (Auto) 0.6 (0-2) % Lymph # (Auto) 1.1 L (1.2-4.9) X10*3/uL [place] # (Auto) 0.8 (0.1-1.2) X10*3/uL Eos # (Auto) 0.4 (0.0-0.4) X10*3/uL Baso # (Auto) 0.1 (0.0-0.2) X10*3/uL Abs Immat Gran (auto) 0.05 H (0.00-0.03) X10*3/uL Absolute Neuts (auto) 6.4 (2.0-8.3) x10*3/uL Absolute Nucleated RBC 0.000 (0.0-0.012) X10*3/uL Nucleated RBC % (auto) 0.0 (0.0-0.2) /100WBC PT 11.0 (10.0-13.1) SEC INR 1.0 (0.9-1.1) D-Dimer High Sensitivty 230 NG/ML Sodium (135-145) mmol/L Potassium (3.3-5.1) mmol/L Chloride (96-108) mmol/L Carbon Dioxide (22-29) mmol/L Anion Gap (12-20) BUN (9-16) mg/dL Creatinine (0.5-1.4) mg/dL Estim Creat Clear Calc Estimated GFR Random Glucose (60-115) mg/dL Calcium (8.4-10.2) mg/dL Magnesium (1.6-2.6) mg/dL Total Bilirubin (0.0-1.0) mg/dL AST (5-31) U/L ALT (0-31) U/L Alkaline Phosphatase (39-117) U/L Troponin I High Sens (<3.5-17.0) ng/L B-Natriuretic Peptide 252 H (<100) pg/mL Total Protein (6.5-8.0) g/dL Albumin (3.5-5.0) g/dL Urine Color Urine Appearance Urine pH (5.0-9.0) Ur Specific [place] (1.005-1.025) Urine Protein (Neg-Trace) mg/dL Urine Glucose (UA) (Negative) mg/dL Urine Ketones (Negative) mg/dL Urine Blood (Negative) Urine Nitrite (Negative) Ur Leukocyte Esterase (Negative) Urine RBC (0-2) /HPF Urine WBC (0-5) /HPF Ur Squamous Epith Cells (0-2) /HPF Urine Bacteria (None Seen) Hyaline Casts (0-2) /LPF COVID-19 (ROM[facility]IO) (Negative) COVID-19 Clin Com 08/08/22 08/08/22 08/08/22 Range/Units 23:22 23:22 23:22 WBC (4.8-10.8) X10*3/uL RBC (4.20-5.50) X10*6/uL Hgb (12.0-16.0) g/dl Hct (37.0-47.0) % MCV (80.0-98.0) fL MCH (27.0-33.0) pg MCHC (31.0-35.0) g/dl RDW (11.0-16.0) % Plt Count (160-400) X10*3/uL MPV (9.4-12.3) fL Immature Gran % (Auto) (0.0-0.4) % Neut % (Auto) (45-73) % Lymph % (Auto) (20-40) % [place] % (Auto) (2-11) % Eos % (Auto) (0-4) % Baso % (Auto) (0-2) % Lymph # (Auto) (1.2-4.9) X10*3/uL [place] # (Auto) (0.1-1.2) X10*3/uL Eos # (Auto) (0.0-0.4) X10*3/uL Baso # (Auto) (0.0-0.2) X10*3/uL Abs Immat Gran (auto) (0.00-0.03) X10*3/uL Absolute Neuts (auto) (2.0-8.3) x10*3/uL Absolute Nucleated RBC (0.0-0.012) X10*3/uL Nucleated RBC % (auto) (0.0-0.2) /100WBC PT (10.0-13.1) SEC INR (0.9-1.1) D-Dimer High Sensitivty NG/ML Sodium 134 L (135-145) mmol/L Potassium 3.8 (3.3-5.1) mmol/L Chloride 102 (96-108) mmol/L Carbon Dioxide 19 L (22-29) mmol/L Anion Gap 17 (12-20) BUN 25 H (9-16) mg/dL Creatinine 1.43 H (0.5-1.4) mg/dL Estim Creat Clear Calc 31.3 Estimated GFR 35 Random Glucose 187 H (60-115) mg/dL Calcium 8.9 D (8.4-10.2) mg/dL Magnesium 1.7 (1.6-2.6) mg/dL Total Bilirubin 0.3 (0.0-1.0) mg/dL AST 11 (5-31) U/L ALT 13 (0-31) U/L Alkaline Phosphatase 89 (39-117) U/L Troponin I High Sens 5.5 (<3.5-17.0) ng/L B-Natriuretic Peptide (<100) pg/mL Total Protein 6.5 (6.5-8.0) g/dL Albumin 3.8 (3.5-5.0) g/dL Urine Color Urine Appearance Urine pH (5.0-9.0) Ur Specific [place] (1.005-1.025) Urine Protein (Neg-Trace) mg/dL Urine Glucose (UA) (Negative) mg/dL Urine Ketones (Negative) mg/dL Urine Blood (Negative) Urine Nitrite (Negative) Ur Leukocyte Esterase (Negative) Urine RBC (0-2) /HPF Urine WBC (0-5) /HPF Ur Squamous Epith Cells (0-2) /HPF Urine Bacteria (None Seen) Hyaline Casts (0-2) /LPF COVID-19 (ROMARIO) Negative (Negative) COVID-19 Clin Com See Note 08/08/22 Range/Units 23:38 WBC (4.8-10.8) X10*3/uL RBC (4.20-5.50) X10*6/uL Hgb (12.0-16.0) g/dl Hct (37.0-47.0) % MCV (80.0-98.0) fL MCH (27.0-33.0) pg MCHC (31.0-35.0) g/dl RDW (11.0-16.0) % Plt Count (160-400) X10*3/uL MPV (9.4-12.3) fL Immature Gran % (Auto) (0.0-0.4) % Neut % (Auto) (45-73) % Lymph % (Auto) (20-40) % [place] % (Auto) (2-11) % Eos % (Auto) (0-4) % Baso % (Auto) (0-2) % Lymph # (Auto) (1.2-4.9) X10*3/uL [place] # (Auto) (0.1-1.2) X10*3/uL Eos # (Auto) (0.0-0.4) X10*3/uL Baso # (Auto) (0.0-0.2) X10*3/uL Abs Immat Gran (auto) (0.00-0.03) X10*3/uL Absolute Neuts (auto) (2.0-8.3) x10*3/uL Absolute Nucleated RBC (0.0-0.012) X10*3/uL Nucleated RBC % (auto) (0.0-0.2) /100WBC PT (10.0-13.1) SEC INR (0.9-1.1) D-Dimer High Sensitivty NG/ML Sodium (135-145) mmol/L Potassium (3.3-5.1) mmol/L Chloride (96-108) mmol/L Carbon Dioxide (22-29) mmol/L Anion Gap (12-20) BUN (9-16) mg/dL Creatinine (0.5-1.4) mg/dL Estim Creat Clear Calc Estimated GFR Random Glucose (60-115) mg/dL Calcium (8.4-10.2) mg/dL Magnesium (1.6-2.6) mg/dL Total Bilirubin (0.0-1.0) mg/dL AST (5-31) U/L ALT (0-31) U/L Alkaline Phosphatase (39-117) U/L Troponin I High Sens (<3.5-17.0) ng/L B-Natriuretic Peptide (<100) pg/mL Total Protein (6.5-8.0) g/dL Albumin (3.5-5.0) g/dL Urine Color Yellow Urine Appearance Clear Urine pH 5.5 (5.0-9.0) Ur Specific [place] <= 1.005 (1.005-1.025) Urine Protein Negative (Neg-Trace) mg/dL Urine Glucose (UA) Negative (Negative) mg/dL Urine Ketones Negative (Negative) mg/dL Urine Blood Negative (Negative) Urine Nitrite Negative (Negative) Ur Leukocyte Esterase Trace H (Negative) Urine RBC 0-2 (0-2) /HPF Urine WBC 0-5 (0-5) /HPF Ur Squamous Epith Cells 0-2 (0-2) /HPF Urine Bacteria None Seen (None Seen) Hyaline Casts 0-2 (0-2) /LPF COVID-19 ([facility]) (Negative) COVID-19 Clin Com Independent Interpretation I performed an independent interpretation of an: EKG (EKG w. SR w/ PACs No MYRNA or inversions.NOrmal ID, QTC/QT, QRS ) and Plain X-Ray Radiology Impression Discussion of test interpretation with radiology: I have reviewed the radiologist's reading. External Record Review External record reviewed: Inpatient record, Office record, Outpatient record, Prior outpatient labs, Prior outpatient radiology, Primary care record and Outside ED record Chronic Conditions Patient?s care impacted by: Diabetes and Hypertension Core Measures AMI core measures followed: Yes Measure exclusions: not indicated Critical Care Time Critical Care Time Critical Care Time: No Discharge Plan Discharge Clinical Impression: Chest pain, Shortness of breath, CHF (congestive heart failure) Patient Disposition: Admitted As Inpatient Instructions: Chest Pain (ED), Shortness of Breath (ED) Additional Instructions: Take your medications as prescribed. If you were prescribed antibiotics today, it is important that you take your medication to their entirety, do not skip any doses, do not finish them early. Follow-up with your primary care provider this week. Return to the emergency department with new or worsening symptoms. Such as fe vers, chills, chest pain, shortness of breath, nausea, vomiting, dizziness, headache, vision changes, lethargy In case of emergency call 911 Prescriptions: No Action montelukast 10 mg tablet 10 mg PO DAILY Qty: 90 1RF allopurinol 100 mg tablet 100 mg PO DAILY 90 Days Qty: 90 1RF atorvastatin [Lipitor] 80 mg tablet 80 mg PO DAILY Qty: 90 0RF fluticasone propion-salmeterol [Advair Diskus] 250-50 mcg/dose blister with device 1 ea inhalation BID Qty: 60 3RF Januvia 100 mg tablet 100 mg PO DAILY 30 Days Qty: 30 3RF valsartan 160 mg Tablet 160 mg PO DAILY trazodone 50 mg tablet 50 mg PO BEDTIME mirtazapine 15 mg tablet 15 mg PO BEDTIME diltiazem HCl 240 mg capsule,ext.rel 24h degradable 240 mg PO DAILY albuterol sulfate [ProAir HFA] 90 mcg/actuation HFA aerosol inhaler 2 puff inhalation .4 times a day PRN (Reason: shortness of breath or wheezing) citalopram [Celexa] 20 mg tablet 40 mg PO DAILY ferrous sulfate [Feosol] 325 mg (65 mg iron) tablet 325 mg PO BID Hold Instructions: Dr Haji to decide clopidogrel 75 mg tablet 75 mg PO DAILY Hold Instructions: Dr Haji to decide glimepiride 1 mg tablet 1 mg PO QAM 30 Days Qty: 30 3RF Rx Instructions: administer with breakfast magnesium 200 mg tablet 400 mg PO DAILY mecobalamin (vitamin B12) 5,000 mcg tablet,disintegrating 5,000 mcg PO DAILY cholecalciferol (vitamin D3) 50 mcg (2,000 unit) capsule 50 mcg PO DAILY 90 Days Qty: 90 2RF lansoprazole [Prevacid] 30 mg capsule,delayed release(DR/EC) 30 mg PO DAILY Referrals: [facility] Services [Provider Group] - 1 week Jamel Mansfield MD [Primary Care Provider] - 2 days
[2022-08-08 23:06] VITALS: BP 130/86; BP 175/87; PULSE 90; PULSE 93; RESP 20; TEMP 36.7; O2SAT 94; O2SAT 99; BMI 35.6
[2022-08-08 23:26] LABS: MANUAL DIFF FLAG NO
[2022-08-08 23:27] LABS: Basophils Absolute Auto 0.1 X10*3/uL (0.0-0.2); Basophils Percent Auto 0.6 % (0-2); Eosinophils Absolute Auto 0.4 X10*3/uL (0.0-0.4); Hematocrit 37.2 % (37.0-47.0); Hemoglobin 12.3 g/dl (12.0-16.0); Imm Gran Abs Auto 0.05 X10*3/uL (0.00-0.03); Imm Gran Pct Auto 0.6 % (0.0-0.4); Lymphocytes Absolute Auto 1.1 X10*3/uL (1.2-4.9); Lymphocytes Percent Auto 11.9 % (20-40); Mean Corpuscular HGB Conc 33.1 g/dl (31.0-35.0); Mean Corpuscular Hemoglobin 28.5 pg (27.0-33.0); Mean Corpuscular Volume 86.3 fL (80.0-98.0); Mean Platelet Volume 8.2 fL (9.4-12.3); Monocytes Absolute Auto 0.8 X10*3/uL (0.1-1.2); Monocytes Percent Auto 9.4 % (2-11); Neutrophils Absolute Auto 6.4 x10*3/uL (2.0-8.3); Neutrophils Percent Auto 72.5 % (45-73); Platelet Count 249 X10*3/uL (160-400); Red Blood Count 4.31 X10*6/uL (4.20-5.50); Red Cell Distribution Width 13.9 % (11.0-16.0); White Blood Count 8.8 X10*3/uL (4.8-10.8)
[2022-08-08 23:34] LABS: D Dimer High Sensitivity 230 NG/ML
[2022-08-08 23:43] LABS: COVID-19 Test Negative (Negative); IDNOW Serial# BCCEAD1C
[2022-08-08 23:47] LABS: Alanine Aminotransferase 13 U/L (0-31); Albumin Level 3.8 g/dL (3.5-5.0); Alkaline Phosphatase 89 U/L (39-117); Anion Gap 17 (12-20); Aspartate Amino Transferase 11 U/L (5-31); Bilirubin Total 0.3 mg/dL (0.0-1.0); Blood Urea Nitrogen 25 mg/dL (9-16); Calcium 8.9 mg/dL (8.4-10.2); Carbon Dioxide 19 mmol/L (22-29); Chloride 102 mmol/L (96-108); Creatinine Clr Calc Pharmacy 31.3; Estimated Glomerular Filt Rate 35; Glucose Random 187 mg/dL (60-115); Magnesium 1.7 mg/dL (1.6-2.6); Potassium 3.8 mmol/L (3.3-5.1); Sodium 134 mmol/L (135-145); Total Protein 6.5 g/dL (6.5-8.0)
[2022-08-08 23:47] LABS: Appearance Urine Clear; Color Urine Yellow; Glucose Urine UA Negative (Negative); Leukocyte Esterase Urine Trace (Negative); Nitrite Urine Negative (Negative); PH 5.5 (5.0-9.0); Specific Gravity - Urine <= 1.005 (1.005-1.025); UMIC TRIGGER UACC YES; Urine Blood Negative (Negative); Urine Ketones Negative (Negative); Urine Protein Negative (Neg-Trace)
[2022-08-08 23:50] LABS: B Type Natriuretic Peptide 252 pg/mL (<100); Troponin-I High Sensitivity 5.5 ng/L (<3.5-17.0)
[2022-08-08 23:52] LABS: Bacteria Urine None Seen (None Seen); Hyaline Casts Urine 0-2 /LPF (0-2); RBC Urine 0-2 /HPF (0-2); Squamous Epithelial Cell Urine 0-2 /HPF (0-2); WBC Urine 0-5 /HPF (0-5)
[2022-08-08] MEDS: 0.9 % Sodium Chloride 1,000 ML 999 ML IV (23:59)
[2022-08-09] VITALS (11 sets, daily range): BP systolic 123–195; BP diastolic 46–98; PULSE 82–98; RESP 16–20; TEMP 36.1–36.7; O2SAT 92–94
[2022-08-09] MEDS: Furosemide 20 MG/2 ML VIAL IVPUSH (00:02)
[2022-08-09] MEDS: Heparin Sodium,Porcine 5,000 UNIT/ML VIAL 5000 UNIT SUBCUT ×2 (02:01→12:33)
[2022-08-09] MEDS: Furosemide 40 MG/4 ML VIAL IVPUSH ×2 (02:01→10:27)
[2022-08-09 02:21] LABS: Anion Gap 16 (12-20); Blood Urea Nitrogen 26 mg/dL (9-16); Calcium 9.1 mg/dL (8.4-10.2); Carbon Dioxide 22 mmol/L (22-29); Chloride 103 mmol/L (96-108); Creatinine Clr Calc Pharmacy 35.5; Estimated Glomerular Filt Rate 41; Glucose Random 128 mg/dL (60-115); Potassium 3.9 mmol/L (3.3-5.1); Sodium 137 mmol/L (135-145)
[2022-08-09 02:26] LABS: B Type Natriuretic Peptide 213 pg/mL (<100)
[2022-08-09 06:11] LABS: Alanine Aminotransferase 11 U/L (0-31); Albumin Level 3.6 g/dL (3.5-5.0); Alkaline Phosphatase 79 U/L (39-117); Anion Gap 16 (12-20); Aspartate Amino Transferase 10 U/L (5-31); Bilirubin Total 0.4 mg/dL (0.0-1.0); Blood Urea Nitrogen 26 mg/dL (9-16); Calcium 9.2 mg/dL (8.4-10.2); Carbon Dioxide 22 mmol/L (22-29); Chloride 103 mmol/L (96-108); Creatinine Clr Calc Pharmacy 34.9; Estimated Glomerular Filt Rate 40; Glucose Random 126 mg/dL (60-115); Potassium 4.2 mmol/L (3.3-5.1); Sodium 137 mmol/L (135-145); Total Protein 6.2 g/dL (6.5-8.0)
--- NOTE | 2022-08-09 06:49 | P.HPHOSP_ITS ---
This is examined by me as well. I agree with a BP assessment and plan. Patient comes in with complaints of chest pain, will be admitted for further evaluation, echocardiogram will be ordered, has evidence of CHF, will give IV Lasix with cardia consult History of Present Illness Date of Service: 08/09/22 Chief Complaint: Chest pain, shortness of breath 81-year-old female past medical history of COPD, CKD stage 3, HTN, depression, GERD, GI bleed, gout, osteoarthritis, peripheral vascular disease, paroxysmal SVT, HLD, type 2 diabetes, presents to the hospital with complaints of chest pain. She describes the pain as midsternal, nonradiating, 5/10, lasting 45 minutes, and resolving spontaneously. No alleviating or exacerbating factors. States that she has been having worsening shortness of breath on exertion. Denies any orthopnea or PND and extremity edema. Denies any fever or chills, de nies any palpitations. She states a chronic cough that has not worsened. Chronic sputum production has not worsened. Denies any nausea or vomiting, no abdominal pain no diarrhea constipation On arrival to the ED patient hemodynamically stable slightly elevated blood pressure Labs are significant for WBC count of 8.8, sodium of 134, creatinine of 1.43 with a baseline of around 1.2 , troponin negative x2, BNP is elevated in the 200s Chest x-ray shows mild interstitial prominence associated with mild edema Review of Systems Review of Systems: Yes all other systems are reviewed and are negative [facility] Medical History Allergic rhinitis Anemia Anxiety Benign essential hypertension Chronic kidney disease (CKD), stage III (moderate) COPD (chronic obstructive pulmonary disease) Depression Exertional dyspnea GERD without esophagitis GI bleed Gout Hearing impairment Hemorrhagic cystitis Hypomagnesemia Microcytic anemia Multiple thyroid nodules Obesity (BMI 30-39.9) Obesity (BMI 30-39.9) Occult blood positive stool Osteoarthritis of ankle and foot Osteopenia PAC (premature atrial contraction) Peripheral vascular disease PSVT (paroxysmal supraventricular tachycardia) Pure hypercholesterolemia Sciatica of right side Thrush, oral 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 Valvular heart disease Vitamin D deficiency Family History Father Stroke CVD (cardiovascular disease) Mother CVD (cardiovascular disease) Hypertension CAD (coronary artery disease) Other Mental health disorder Surgical History History of angioplasty of peripheral vessel (~08/13/20) History of appendectomy History of biopsy History of bladder surgery History of cataract surgery History of colonoscopy History of hysterectomy History of neck surgery History of tonsillectomy and adenoidectomy Social History Household Members: None Housing: Condominium Do you presently have visiting nurse or other home services: Yes (bead picker once per week- [facility]) Alcohol intake: current Alcohol intake frequency: holidays/special occasions only Alcohol type: beer and hard liquor Patient Tobacco Use Status: Former Tobacco user Quit Date: 1999 Tobacco use type: Cigarette Cigarette Packs Per Day: 2 Cigarettes Per Day: 40.0 Years Smoked: 40 Smoked in Last 30 Days: No e-Cigarette/Vaping Use: Never Used Second Hand Smoke Exposure: Yes Use of substances other than those prescribed or required for medical reasons: No Currently Displaying Signs/Symptoms of Drug Intoxication Withdrawal: No Have you been hit, kicked, punched, or otherwise hurt by someone within the past year? If so, by whom?: No Do you feel safe in your current relationship?: No Current Relationship Is there a partner from a previous relationship who is making you feel unsafe now?: No Are you made to feel afraid or neglected: No Advance Directives: No Advance Directives Information Provided: Yes Do you have thoughts of harming others: None Do you have a plan to hurt others: No Plan Recently lost weight without trying: No Eating poorly because of decreased appetite: No Nutrition Risks: No Nutritional Risk Patient : No Poor oral hygiene: No service: No Current occupational status: retired Cognitive needs: Yes (cane) Hearing needs: Yes Vision needs: Yes Meds Allergies Allergy/AdvReac Type Severity Reaction Status Date / Time Iodinated Contrast Media Allergy Severe HIVE Verified 08/05/22 14:44 [IV DYE, IODINE CONTAINING CONTRAST ] Penicillins [PENICILLINS] Allergy Severe HIVES Verified 08/05/22 14:44 Active Medications: Current Medications Acetaminophen (Acetaminophen 325 Mg Tablet) 650 mg PO Q6H PRN PRN Reason: Pain, Mild (Pain Scale 1-3) Albuterol Sulfate 2.5 mg/ (Ipratropium [place] 0.5 mg) 0 mg INHALE RQ4H WHILE AWAKE PRN PRN Reason: Shortness of Breath/Wheezing Docusate Sodium (Docusate Sodium 100 Mg Capsule) 100 mg PO DAILY PRN PRN Reason: Constipation Furosemide (Furosemide 40 Mg/4 Ml Vial) 40 mg IVPUSH DAILY [facility]; Protocol Last Admin: 08/09/22 02:01 Dose: 40 mg Heparin Sodium (Porcine) (Heparin Sodium,Porcine 5,000 Unit/Ml Vial) 5,000 unit SUBCUT Q12H [facility] Last Admin: 08/09/22 02:01 Dose: 5,000 unit Ondansetron HCl (Ondansetron Hcl 4 Mg/2 Ml Vial) 4 mg IVPUSH Q8H PRN PRN Reason: Nausea and Vomiting Pharmacy Consult (Consult Rx Perform Med Rec) 1 each MISCELLANE ONCE PRN PRN Reason: Consult order Sodium Chloride (0.9 % Sodium Chloride Flush 3 Ml Syringe) 3 ml IVFLUSH QSHIFT [facility] Home Medications Medication Instructions Recorded Confirmed Last Taken Type diltiazem HCl 240 mg 240 mg PO DAILY 03/13/20 08/09/22 08/08/22 History capsule,extended release 24 hr, controlled mirtazapine 15 mg tablet 15 mg PO BEDTIME 03/13/20 08/09/22 08/08/22 History trazodone 50 mg tablet 50 mg PO BEDTIME PRN Insomnia 03/13/20 08/09/22 01/20/22 History magnesium 200 mg tablet 400 mg PO DAILY 05/29/20 08/09/22 08/08/22 History mecobalamin (vitamin B12) 5,000 5,000 mcg PO DAILY 05/29/20 08/09/22 08/08/22 History mcg disintegrating tablet clopidogrel 75 mg tablet 75 mg PO DAILY 08/28/20 08/09/22 08/08/22 History valsartan 160 mg tablet 160 mg PO DAILY 01/21/22 08/09/22 08/08/22 History ferrous sulfate 325 mg (65 mg 325 mg PO BID 03/24/22 08/09/22 08/08/22 History iron) tablet (Feosol) lansoprazole 30 mg capsule,delayed 30 mg PO DAILY@0630 03/24/22 08/09/2223 History release (Prevacid) citalopram 40 mg tablet 40 mg PO DAILY 08/09/22 08/09/22 08/08/22 History fluticasone 250 mcg-salmeterol 50 1 inh inhalation BID 08/09/22 08/09/22 08/08/22 History mcg/dose blistr powdr for inhalation (Advair Diskus) furosemide 20 mg tablet 20 mg PO DAILY 08/09/22 08/09/22 08/08/22 History glimepiride 1 mg tablet 1 mg PO DAILY 08/09/22 08/09/22 08/08/22 History melatonin 10 mg tablet 10 mg PO BEDTIME PRN Insomnia 08/09/22 08/09/22 Unknown History Physical Exam Vital Signs and Narrative: Vital Signs: Last Vital Signs Temp 98.0 F 08/09/22 06:13 Pulse 86 08/09/22 06:13 Resp 16 08/09/22 06:13 BP 133/47 L 08/09/22 06:13 Pulse Ox 94 08/09/22 06:13 O2 Del Method Room Air 08/09/22 06:13 BMI result Body Mass Index 35.6 Results Labs 08/08/22 23:22 08/09/22 05:27 Labs: Laboratory Results - last 24 hr 08/08/22 08/08/22 08/08/22 23:22 23:22 23:22 MCV 86.3 MCH 28.5 MCHC 33.1 RDW 13.9 Plt Count 249 MPV 8.2 L Immature Gran % (Auto) 0.6 H Neut % (Auto) 72.5 Lymph % (Auto) 11.9 L [place] % (Auto) 9.4 Eos % (Auto) 5.0 H Baso % (Auto) 0.6 Lymph # (Auto) 1.1 L [place] # (Auto) 0.8 Eos # (Auto) 0.4 Baso # (Auto) 0.1 Abs Immat Gran (auto) 0.05 H Absolute Neuts (auto) 6.4 Absolute Nucleated RBC 0.000 Nucleated RBC % (auto) 0.0 PT 11.0 INR 1.0 D-Dimer High Sensitivty 230 Anion Gap Estim Creat Clear Calc Estimated GFR Random Glucose Calcium Magnesium Total Bilirubin AST ALT Alkaline Phosphatase Troponin I High Sens B-Natriuretic Peptide 252 H Total Protein Albumin Urine Color Urine Appearance Urine pH Ur Specific [place] Urine Protein Urine Glucose (UA) Urine Ketones Urine Blood Urine Nitrite Ur Leukocyte Esterase Urine RBC Urine WBC Ur Squamous Epith Cells Urine Bacteria Hyaline Casts COVID-19 ([facility]) COVID-19 Clin Com 08/08/22 08/08/22 08/08/22 23:22 23:22 23:22 MCV MCH MCHC RDW Plt Count MPV Immature Gran % (Auto) Neut % (Auto) Lymph % (Auto) [place] % (Auto) Eos % (Auto) Baso % (Auto) Lymph # (Auto) [place] # (Auto) Eos # (Auto) Baso # (Auto) Abs Immat Gran (auto) Absolute Neuts (auto) Absolute Nucleated RBC Nucleated RBC % (auto) PT INR D-Dimer High Sensitivty Anion Gap 17 Estim Creat Clear Calc 31.3 Estimated GFR 35 Random Glucose 187 H Calcium 8.9 D Magnesium 1.7 Total Bilirubin 0.3 AST 11 ALT 13 Alkaline Phosphatase 89 Troponin I High Sens 5.5 B-Natriuretic Peptide Total Protein 6.5 Albumin 3.8 Urine Color Urine Appearance Urine pH Ur Specific [place] Urine Protein Urine Glucose (UA) Urine Ketones Urine Blood Urine Nitrite Ur Leukocyte Esterase Urine RBC Urine WBC Ur Squamous Epith Cells Urine Bacteria Hyaline Casts COVID-19 ([facility]) Negative COVID-19 Clin Com See Note 08/08/22 08/09/22 08/09/22 23:38 01:58 01:58 MCV MCH MCHC RDW Plt Count MPV Immature Gran % (Auto) Neut % (Auto) Lymph % (Auto) [place] % (Auto) Eos % (Auto) Baso % (Auto) Lymph # (Auto) [place] # (Auto) Eos # (Auto) Baso # (Auto) Abs Immat Gran (auto) Absolute Neuts (auto) Absolute Nucleated RBC Nucleated RBC % (auto) PT INR D-Dimer High Sensitivty Anion Gap 16 Estim Creat Clear Calc 35.5 Estimated GFR 41 Random Glucose 128 H Calcium 9.1 Magnesium Total Bilirubin AST ALT Alkaline Phosphatase Troponin I High Sens 6.0 B-Natriuretic Peptide Total Protein Albumin Urine Color Yellow Urine Appearance Clear Urine pH 5.5 Ur Specific [place] <= 1.005 Urine Protein Negative Urine Glucose (UA) Negative Urine Ketones Negative Urine Blood Negative Urine Nitrite Negative Ur Leukocyte Esterase Trace H Urine RBC 0-2 Urine WBC 0-5 Ur Squamous Epith Cells 0-2 Urine Bacteria None Seen Hyaline Casts 0-2 COVID-19 ([facility]) COVID-19 [employer] 08/09/22 08/09/22 01:58 05:27 MCV MCH MCHC RDW Plt Count MPV Immature Gran % (Auto) Neut % (Auto) Lymph % (Auto) [place] % (Auto) Eos % (Auto) Baso % (Auto) Lymph # (Auto) [place] # (Auto) Eos # (Auto) Baso # (Auto) Abs Immat Gran (auto) Absolute Neuts (auto) Absolute Nucleated RBC Nucleated RBC % (auto) PT INR D-Dimer High Sensitivty Anion Gap 16 Estim Creat Clear Calc 34.9 Estimated GFR 40 Random Glucose 126 H Calcium 9.2 Magnesium Total Bilirubin 0.4 AST 10 ALT 11 Alkaline Phosphatase 79 Troponin I High Sens B-Natriuretic Peptide 213 H Total Protein 6.2 L Albumin 3.6 Urine Color Urine Appearance Urine pH Ur Specific [place] Urine Protein Urine Glucose (UA) Urine Ketones Urine Blood Urine Nitrite Ur Leukocyte Esterase Urine RBC Urine WBC Ur Squamous Epith Cells Urine Bacteria Hyaline Casts COVID-19 ([facility]) COVID-19 Clin Com Imaging Radiologist's Impressions: Impressions Chest X-Ray 08/08/22 23:57 IMPRESSION: Mild interstitial prominence could be associated with mild edema. No dense consolidation. Assessment and Plan (1) Acute exacerbation of CHF (congestive heart failure): Qualifiers: Heart failure type: unspecified Qualified Code(s): I50.9 - Heart failure, unspecified Status: Acute (2) Shortness of breath: Status: Acute (3) Chest pain: Status: Acute Plan 81-year-old female with past medical history of COPD, diabetes, hypertension presents to the hospital with complaints of chest pain and worsening shortness of breath # acute chest pain - cardiac versus noncardiac - troponin negative x2 - EKG shows no evidence of ACS - given her high risk will consult Cardiology - echo ordered # acute CHF exacerbation - has worsening dyspnea, evidence of edema on imaging, also elevated BNP - on 20 mg of p.o. Lasix at home, will treat with IV - echocardiogram - cardiology consult - strict I&O, low-sodium diet, daily weight # shortness of breath - likely secondary to CHF, COPD less likely, has no worsening cough or sputum production - continue inhalers, - treatment of CHF as above # diabetes - low-dose sliding scale insulin - diabetic diet - # history of peripheral vascular disease - continue Plavix # hyperlipidemia - continue statin # hypertension - stable - continue home antihypertensives DVT prophylaxis: Heparin subQ Given acute CHF, as well as need for further evaluation by Cardiology patient will require minimum to nits inpatient hospital stay for further management and monitoring Time Spent With Patient Time: Total time managing care of this patient today ____ minutes. Quality Stroke Does the patient have a stroke diagnosis?: No VTE Prior VTE?: No VTE Risk Level:: Medical - moderate - high VTE Device Contraindication: Treatment Not Indicated VTE Drug Contraindication: N/A - Med Ordered
[2022-08-09 08:14] LABS: Glucose, Whole Blood 148 mg/dL (60-115)
--- NOTE | 2022-08-09 08:21 | PC.NURSE ---
POC 148 No coverage needed for breakfast. Tray set up for patient, no complaints noted at this time.
--- NOTE | 2022-08-09 08:42 | PC.NURSE ---
FLOOR CALLED AT 0800 FOR REPORT
--- NOTE | 2022-08-09 09:51 | PHA.MEDREC ---
Pharmacy Consult ? Medication Reconciliation Pharmacy has completed the medication reconciliation. Spoke to patient to confirm meds.
[2022-08-09] MEDS: 0.9 % Sodium Chloride Flush 3 ML SYRINGE IVFLUSH ×2 (10:27→15:52)
[2022-08-09 11:01] LABS: Glucose, Whole Blood 146 mg/dL (60-115)
--- NOTE | 2022-08-09 11:31 | PM.CNCAR ---
History of Present Illness History of Present Illness Date of Service: 08/09/22 Requesting physician: Chely Hart Consult reason: chest pain and congestive heart failure Chief complaint: chf Narrative: I was consulted to see Alice in cardiology consultation today for sudden-onset chest discomfort and findings suggestive of acute heart failure. She is 81-year-old woman with prior history of aortic stenosis as well as she thinks mitral stenosis, hypertension, diabetes, COPD but she has was told that her COPD is not that bad, peripheral vascular disease, hyperlipidemia. Patient was usual state of health has been getting progressively increased shortness of breath on exertion which was initially felt to be related to her lungs. However yesterday she developed sudden-onset retrosternal chest pressure which lasted for 45 minutes. She under coming to the hospital. This associated shortness of breath. Chest x-ray finding consistent with interstitial edema as well as elevated BNP. She was given Lasix. There was a suggestion that that she had leg edema but she says she has never had leg edema. Currently she is limited in activity level due to exertional shortness of breath but also gets claudication. She sees vascular surgery at [facility]. She was advised cardiac catheterization are in the past but because of misunderstanding and not being treated for contrast allergy she did not go through with it. Her breathing at rest is okay. She does not have any chest pain at rest. Her troponins are negative. EKG did not show acute changes but PACs. Review of Systems Constitutional: Constitutional: Reports no additional constitutional complaints Cardiovascular: Cardiovascular: Reports chest pain at rest, Denies leg edema, Denies lightheadedness, Denies Loss of Consciousness, Denies palpitations, Reports dyspnea on exertion, Denies orthopnea and Denies paroxysmal nocturnal dyspnea Respiratory: Respiratory: Reports cough and Reports dyspnea on exertion Gastrointestinal: Gastrointestinal: Reports no additional gastrointestinal complaints Musculoskeletal: Musculoskeletal: Reports no additional musculoskeletal complaints Neurologic: Reports system reviewed and no additional complaints, except as documented Psychiatric: Psychiatric: Reports no additional psychiatric complaints Endocrine: Endocrine: Denies palpitations PMFSH Past Medical History Medical History Allergic rhinitis Anemia Anxiety Benign essential hypertension Chronic kidney disease (CKD), stage III (moderate) COPD (chronic obstructive pulmonary disease) Depression Exertional dyspnea GERD without esophagitis GI bleed Gout Hearing impairment Hemorrhagic cystitis Hypomagnesemia Microcytic anemia Multiple thyroid nodules Obesity (BMI 30-39.9) Obesity (BMI 30-39.9) Occult blood positive stool Osteoarthritis of ankle and foot Osteopenia PAC (premature atrial contraction) Peripheral vascular disease PSVT (paroxysmal supraventricular tachycardia) Pure hypercholesterolemia Sciatica of right side Thrush, oral 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 Valvular heart disease Vitamin D deficiency Family History Family History Father Stroke CVD (cardiovascular disease) Mother CVD (cardiovascular disease) Hypertension CAD (coronary artery disease) Other Mental health disorder Surgical History Surgical History History of angioplasty of peripheral vessel (~08/13/20) History of appendectomy History of biopsy History of bladder surgery History of cataract surgery History of colonoscopy History of hysterectomy History of neck surgery History of tonsillectomy and adenoidectomy Social History Social History Household Members: None Housing: Condominium Do you presently have visiting nurse or other home services: Yes (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 If so, by whom?: No Do you feel safe in your current relationship?: No Current Relationship Is there a partner from a previous relationship who is making you feel unsafe now?: No Are you made to feel afraid or neglected: No Advance Directives: No Advance Directives Information Provided: Yes Do you have thoughts of harming others: None Do you have a plan to hurt others: No Plan Recently lost weight without trying: No Eating poorly because of decreased appetite: No Nutrition Risks: No Nutritional Risk Patient : No Poor oral hygiene: No service: No Current occupational status: retired Cognitive needs: Yes (cane) Hearing needs: Yes Vision needs: Yes Meds Allergies Allergy/AdvReac Type Severity Reaction Status Date / Time Iodinated Contrast Media Allergy Severe HIVE Verified 08/05/22 14:44 [IV DYE, IODINE CONTAINING CONTRAST ] Penicillins [PENICILLINS] Allergy Severe HIVES Verified 08/05/22 14:44 Active Medications: Current Medications Acetaminophen (Acetaminophen 325 Mg Tablet) 650 mg PO Q6H PRN PRN Reason: Pain, Mild (Pain Scale 1-3) Albuterol Sulfate 2.5 mg/ (Ipratropium [place] 0.5 mg) 0 mg INHALE RQ4H WHILE AWAKE PRN PRN Reason: Shortness of Breath/Wheezing Docusate Sodium (Docusate Sodium 100 Mg Capsule) 100 mg PO DAILY PRN PRN Reason: Constipation Furosemide (Furosemide 40 Mg/4 Ml Vial) 40 mg IVPUSH DAILY [facility]; Protocol Last Admin: 08/09/22 10:27 Dose: 40 mg Glucose (Glucose Gel 15 Gm Gel..Gram.) 15 gm PO Q15M PRN; Protocol PRN Reason: per Hypoglycemia Standing Ord. Heparin Sodium (Porcine) (Heparin Sodium,Porcine 5,000 Unit/Ml Vial) 5,000 unit SUBCUT Q12H [facility] Last Admin: 08/09/22 02:01 Dose: 5,000 unit Dextrose (D10) 250 mls @ 750 mls/hr IV Q15M PRN; Protocol PRN Reason: per Hypoglycemia Standing Ord. Insulin Human Lispro (Insulin Lispro 100 Unit/Ml 3 Ml Vial) 0 unit SUBCUT QIDACHS [facility]; Protocol Last Admin: 08/09/22 11:22 Dose: Not Given Ondansetron HCl (Ondansetron Hcl 4 Mg/2 Ml Vial) 4 mg IVPUSH Q8H PRN PRN Reason: Nausea and Vomiting Pharmacy Consult (Consult Rx Perform Med Rec) 1 each MISCELLANE ONCE PRN PRN Reason: Consult order Sodium Chloride (0.9 % Sodium Chloride Flush 3 Ml Syringe) 3 ml IVFLUSH QSHIFT [facility] Last Admin: 08/09/22 10:27 Dose: 3 ml Home Medications Medication Instructions Recorded Confirmed Last Taken Type diltiazem HCl 240 mg 240 mg PO DAILY 03/13/20 08/09/22 08/08/22 History capsule,extended release 24 hr, controlled mirtazapine 15 mg tablet 15 mg PO BEDTIME 03/13/20 08/09/22 08/08/22 History trazodone 50 mg tablet 50 mg PO BEDTIME PRN Insomnia 03/13/20 08/09/22 01/20/22 History magnesium 200 mg tablet 400 mg PO DAILY 05/29/20 08/09/22 08/08/22 History mecobalamin (vitamin B12) 5,000 5,000 mcg PO DAILY 05/29/20 08/09/22 08/08/22 History mcg disintegrating tablet clopidogrel 75 mg tablet 75 mg PO DAILY 08/28/20 08/09/22 08/08/22 History valsartan 160 mg tablet 160 mg PO DAILY 01/21/22 08/09/22 08/08/22 History ferrous sulfate 325 mg (65 mg 325 mg PO BID 03/24/22 08/09/22 08/08/22 History iron) tablet (Feosol) lansoprazole 30 mg capsule,delayed 30 mg PO DAILY@0630 03/24/22 08/09/22 08/08/22 History release (Prevacid) citalopram 40 mg tablet 40 mg PO DAILY 08/09/22 08/09/22 08/08/22 History fluticasone 250 mcg-salmeterol 50 1 inh inhalation BID 08/09/22 08/09/22 08/08/22 History mcg/dose blistr powdr for inhalation (Advair Diskus) furosemide 20 mg tablet 20 mg PO DAILY 08/09/22 08/09/22 08/08/22 History glimepiride 1 mg tablet 1 mg PO DAILY 08/09/22 08/09/22 08/08/22 History melatonin 10 mg tablet 10 mg PO BEDTIME PRN Insomnia 08/09/22 08/09/22 Unknown History Physical Exam Vital Signs: Vital Signs: Last Vital Signs Temp 97.9 F 08/09/22 10:01 Pulse 84 08/09/22 10:01 Resp 18 08/09/22 10:01 BP 160/72 H 08/09/22 10:01 Pulse Ox 93 08/09/22 10:01 O2 Del Method Room Air 08/09/22 10:01 BMI result Body Mass Index 35.6 Const: General: cooperative, comfortable, no acute distress, alert and awake Nutritional Appearance: obese Orientation/consciousness: patient oriented x3 Limitations: no limitations HEENT: Head: Yes normocephalic and Yes atraumatic Neck: Neck: Yes trachea midline, Yes supple and Yes no JVD Resp: Effort & Inspection: normal respiratory effort Auscultation: no rales, no wheezes and diminished lung sounds Cardio: Jugular venous distension: no JVD Palpation: normal PMI Rate: regular rate Rhythm: regular rhythm Heart sounds: S1 normal heart sound present and Murmur heart sound present systolic late, decrescendo and crescendo GI: Auscultation: normal bowel sounds Skin: General skin exam: no rashes or lesions noted Neuro: General: patient oriented x3 and no focal motor deficits Extrem: General: Yes no clubbing, cyanosis or edema Objective Labs and Meds 08/08/22 23:22 08/09/22 05:27 Lab results: Laboratory Results - last 24 hr 08/08/22 08/08/22 08/08/22 23:22 23:22 23:22 WBC 8.8 RBC 4.31 Hgb 12.3 Hct 37.2 MCV 86.3 MCH 28.5 MCHC 33.1 RDW 13.9 Plt Count 249 MPV 8.2 L Immature Gran % (Auto) 0.6 H Neut % (Auto) 72.5 Lymph % (Auto) 11.9 L [place] % (Auto) 9.4 Eos % (Auto) 5.0 H Baso % (Auto) 0.6 Lymph # (Auto) 1.1 L [place] # (Auto) 0.8 Eos # (Auto) 0.4 Baso # (Auto) 0.1 Abs Immat Gran (auto) 0.05 H Absolute Neuts (auto) 6.4 Absolute Nucleated RBC 0.000 Nucleated RBC % (auto) 0.0 PT 11.0 INR 1.0 D-Dimer High Sensitivty 230 Sodium Potassium Chloride Carbon Dioxide Anion Gap BUN Creatinine Estim Creat Clear Calc Estimated GFR POC Glucose Random Glucose Calcium Magnesium Total Bilirubin AST ALT Alkaline Phosphatase Troponin I High Sens B-Natriuretic Peptide 252 H Total Protein Albumin Urine Color Urine Appearance Urine pH Ur Specific [place] Urine Protein Urine Glucose (UA) Urine Ketones Urine Blood Urine Nitrite Ur Leukocyte Esterase Urine RBC Urine WBC Ur Squamous Epith Cells Urine Bacteria Hyaline Casts COVID-19 ([facility]) COVID-19 Clin Com 08/08/22 08/08/22 08/08/22 23:22 23:22 23:22 WBC RBC Hgb Hct MCV MCH MCHC RDW Plt Count MPV Immature Gran % (Auto) Neut % (Auto) Lymph % (Auto) [place] % (Auto) Eos % (Auto) Baso % (Auto) Lymph # (Auto) [place] # (Auto) Eos # (Auto) Baso # (Auto) Abs Immat Gran (auto) Absolute Neuts (auto) Absolute Nucleated RBC Nucleated RBC % (auto) PT INR D-Dimer High Sensitivty Sodium 134 L Potassium 3.8 Chloride 102 Carbon Dioxide 19 L Anion Gap 17 BUN 25 H Creatinine 1.43 H Estim Creat Clear Calc 31.3 Estimated GFR 35 POC Glucose Random Glucose 187 H Calcium 8.9 D Magnesium 1.7 Total Bilirubin 0.3 AST 11 ALT 13 Alkaline Phosphatase 89 Troponin I High Sens 5.5 B-Natriuretic Peptide Total Protein 6.5 Albumin 3.8 Urine Color Urine Appearance Urine pH Ur Specific [place] Urine Protein Urine Glucose (UA) Urine Ketones Urine Blood Urine Nitrite Ur Leukocyte Esterase Urine RBC Urine WBC Ur Squamous Epith Cells Urine Bacteria Hyaline Casts COVID-19 ([facility]) Negative COVID-19 Clin Com See Note 08/08/22 08/09/22 08/09/22 23:38 01:58 01:58 WBC RBC Hgb Hct MCV MCH MCHC RDW Plt Count MPV Immature Gran % (Auto) Neut % (Auto) Lymph % (Auto) [place] % (Auto) Eos % (Auto) Baso % (Auto) Lymph # (Auto) [place] # (Auto) Eos # (Auto) Baso # (Auto) Abs Immat Gran (auto) Absolute Neuts (auto) Absolute Nucleated RBC Nucleated RBC % (auto) PT INR D-Dimer High Sensitivty Sodium 137 Potassium 3.9 Chloride 103 Carbon Dioxide 22 Anion Gap 16 BUN 26 H Creatinine 1.26 Estim Creat Clear Calc 35.5 Estimated GFR 41 POC Glucose Random Glucose 128 H Calcium 9.1 Magnesium Total Bilirubin AST ALT Alkaline Phosphatase Troponin I High Sens 6.0 B-Natriuretic Peptide Total Protein Albumin Urine Color Yellow Urine Appearance Clear Urine pH 5.5 Ur Specific [place] <= 1.005 Urine Protein Negative Urine Glucose (UA) Negative Urine Ketones Negative Urine Blood Negative Urine Nitrite Negative Ur Leukocyte Esterase Trace H Urine RBC 0-2 Urine WBC 0-5 Ur Squamous Epith Cells 0-2 Urine Bacteria None Seen Hyaline Casts 0-2 COVID-19 ([facility]) COVID-19 Clin Com 08/09/22 08/09/22 08/09/22 01:58 05:27 07:36 WBC RBC Hgb Hct MCV MCH MCHC RDW Plt Count MPV Immature Gran % (Auto) Neut % (Auto) Lymph % (Auto) [place] % (Auto) Eos % (Auto) Baso % (Auto) Lymph # (Auto) [place] # (Auto) Eos # (Auto) Baso # (Auto) Abs Immat Gran (auto) Absolute Neuts (auto) Absolute Nucleated RBC Nucleated RBC % (auto) PT INR D-Dimer High Sensitivty Sodium 137 Potassium 4.2 Chloride 103 Carbon Dioxide 22 Anion Gap 16 BUN 26 H Creatinine 1.28 Estim Creat Clear Calc 34.9 Estimated GFR 40 POC Glucose 148 H Random Glucose 126 H Calcium 9.2 Magnesium Total Bilirubin 0.4 AST 10 ALT 11 Alkaline Phosphatase 79 Troponin I High Sens B-Natriuretic Peptide 213 H Total Protein 6.2 L Albumin 3.6 Urine Color Urine Appearance Urine pH Ur Specific [place] Urine Protein Urine Glucose (UA) Urine Ketones Urine Blood Urine Nitrite Ur Leukocyte Esterase Urine RBC Urine WBC Ur Squamous Epith Cells Urine Bacteria Hyaline Casts COVID-19 ([facility]) COVID-19 Clin Com 08/09/22 10:58 WBC RBC Hgb Hct MCV MCH MCHC RDW Plt Count MPV Immature Gran % (Auto) Neut % (Auto) Lymph % (Auto) [place] % (Auto) Eos % (Auto) Baso % (Auto) Lymph # (Auto) [place] # (Auto) Eos # (Auto) Baso # (Auto) Abs Immat Gran (auto) Absolute Neuts (auto) Absolute Nucleated RBC Nucleated RBC % (auto) PT INR D-Dimer High Sensitivty Sodium Potassium Chloride Carbon Dioxide Anion Gap BUN Creatinine Estim Creat Clear Calc Estimated GFR POC Glucose 146 H Random Glucose Calcium Magnesium Total Bilirubin AST ALT Alkaline Phosphatase Troponin I High Sens B-Natriuretic Peptide Total Protein Albumin Urine Color Urine Appearance Urine pH Ur Specific [place] Urine Protein Urine Glucose (UA) Urine Ketones Urine Blood Urine Nitrite Ur Leukocyte Esterase Urine RBC Urine WBC Ur Squamous Epith Cells Urine Bacteria Hyaline Casts COVID-19 ([facility]) COVID-19 Clin Com EKG shows normal sinus rhythm with PACs with inferior Q-waves with no acute ST T wave changes Imaging Radiologist's impression: Impressions Chest X-Ray 08/08/22 23:57 IMPRESSION: Mild interstitial prominence could be associated with mild edema. No dense consolidation. Assessment and Plan (1) Angina at rest: Status: Acute Patient presents with symptoms highly concerning for angina at rest. There is no significant ischemic findings noted by EKG or by troponins. However there is extremely high likelihood of underlying obstructive coronary artery disease including left main disease. She requires cardiac catheterization to further assess for the same. Discussed with her about the same. She is agreeable. Will load her up with therapy to prevent allergic reaction to the dye with prednisone 20 mg b.i.d., Pepcid 20 mg b.i.d. and Benadryl 25 mg b.i.d.. Transfer to [facility] tomorrow after obtaining an echocardiogram to assess for underlying valvular heart disease in better planned the procedure. She is agreeable to this management plan. Continue high-intensity statin therapy. Continue low-dose aspirin therapy. Control blood pressure is necessary. Consider adding isosorbide 30 mg to regimen both as antianginal as well as to treat her blood pressure without lowering it significantly. Continue Cardizem and valsartan (2) Aortic stenosis: Status: Acute Aortic stenosis appears clinically severe. Will obtain echocardiogram as above. May require full evaluation with cardiac catheterization including hemodynamic evaluation of the aortic valve. Compared with echocardiogram done at outside facility 2 months ago. Continue aggressive risk factor modification above. Will continue to follow with you. Thank you for allowing me to partake in her care Time Spent With Patient Time: Total time managing care of this patient today ____ minutes. Procedures Date of Service Date of Service: 08/09/22
--- NOTE | 2022-08-09 11:41 | PM.EVENT ---
Event Note Date of Service: 08/10/22 Event Note: This patient is seen and examined hospitalist team this morning. Patient says shortness of breath seems to be improving, denies any chest pain today. Denies any nausea vomiting or dizziness. Lab reviewed Vitals stable blood pressure fluctuating Physical exam and assessment and plan coordinated in APCs note, Agree with the plan in addition: chest pain/chf (etiology unclear) -in setting of ,may be underlying undiagnosded cad . Chest pain and shortness of breath seems to be improving significantly moniter i/o daily weight continue iv lasix and home meds for bp added pepcid /prednisone/benadryl( hx of contrast allergy)-patient may need to go to [facility] tomorrow for cardiac catheterization -for management of as well as question of checking for undiagnosed cad. d/w cardiology Time Spent With Patient Time: Total time managing care of this patient today ____ minutes.
[2022-08-09] MEDS: Aspirin Enteric Coated 81 MG TABLET.DR PO (12:33)
[2022-08-09] MEDS: Escitalopram Oxalate 20 MG TABLET PO (12:33)
[2022-08-09] MEDS: Omeprazole 20 MG CAPSULE.DR PO (15:51)
[2022-08-09 16:22] LABS: Glucose, Whole Blood 88 mg/dL (60-115)
[2022-08-09] MEDS: predniSONE 20 MG TABLET PO (17:40)
[2022-08-09 20:58] LABS: Glucose, Whole Blood 221 mg/dL (60-115)
[2022-08-09] MEDS: Mirtazapine 15 MG TABLET PO (21:40)
[2022-08-09] MEDS: Insulin Lispro 100 UNIT/ML 3 ML VIAL SUBCUT (21:40)
[2022-08-09] MEDS: Ferrous Sulfate 324 MG TABLET.DR PO (21:40)
[2022-08-09] MEDS: Famotidine 20 MG TABLET PO (21:41)
[2022-08-09] MEDS: diphenhydrAMINE HCL 25 MG CAPSULE PO (21:41)
--- NOTE | 2022-08-10 | ECG_ITS ---
Test Reason : tachycardia Blood Pressure : / mmHG Vent. Rate : 108 BPM Atrial Rate : 108 BPM P-R Int : 192 ms QRS Dur : 082 ms QT Int : 344 ms P-R-T Axes : 000 -34 037 degrees QTc Int : 460 ms Sinus tachycardia with Premature atrial complexes Left axis deviation Inferior infarct (cited on or before 21-JAN-2022) Cannot rule out Anterior infarct (cited on or before 21-JAN-2022) Abnormal ECG When compared with ECG of 08-AUG-2022 23:32, No significant change was found Referred By: Dharmesh Vance Electronically Signed By:ROHAN DOWNS
[2022-08-10] MEDS: Heparin Sodium,Porcine 5,000 UNIT/ML VIAL 5000 UNIT SUBCUT ×2 (00:21→13:19)
[2022-08-10] MEDS: 0.9 % Sodium Chloride Flush 3 ML SYRINGE IVFLUSH (00:23)
[2022-08-10 04:00] VITALS: BP 128/63; PULSE 93; RESP 18; TEMP 36.2; O2SAT 93
[2022-08-10] MEDS: Omeprazole 20 MG CAPSULE.DR PO (05:15)
--- NOTE | 2022-08-10 07:00 | CA_ITS ---
Transthoracic Echocardiogram Patient (Last, First, Middle): Alice Martinez A Gender: Female Date of : 1940 Age: 81 Procedure Date: 08/10/2022 Procedure Type: Transthoracic Echocardiogram Location: S3E Height: 157.48 cm Weight: 88.45 kg BSA: 1.89 m2 Heart Rate: bpm BP: 150 / 80 mmHg Voice Coach: SB Referring MD: Alexandra Mitchell MD Symptoms: chf Study Quality: Adequate ECG Rhythm: Sinus with PACs Conclusions: - The left ventricular systolic function is normal. The visually estimated ejection fraction is between 65-70%. - There is moderate aortic valve stenosis. Underestimation possible due to diminished stroke volume. - There is severe mitral annular calcification. There is severe mitral valve stenosis. Findings Left Ventricle Normal left ventricular cavity size. There is normal left ventricular wall thickness. The left ventricular systolic function is normal. The visually estimated ejection fraction is between 65-70%. There is no evidence of regional wall motion abnormalities. Diastolic function is indeterminate on the basis of available data. Right Ventricle Normal right ventricular cavity size. There is mildly decreased right ventricular systolic function. Atria The left atrium is moderately dilated. The right atrium is normal in size. Aortic Valve There is moderate calcification of the aortic valve. There is moderate aortic valve stenosis. The peak aortic velocity is 2.48 m/s with a calculated peak gradient of 25 mmHg. The mean gradient is 14 mmHg. The aortic valve area is 1.29 cm2. There is mild aortic valve regurgitation. Stroke volume index 26ml/m2. Mitral Valve There is severe mitral annular calcification. There is mild mitral valve regurgitation. There is severe mitral valve stenosis. Mean gradient across the mitral valve 13mmHg at 75/min. Pulmonic Valve The pulmonic valve was not well visualized. Tricuspid Valve There is trace tricuspid valve regurgitation. Tricuspid regurgitation envelope is inadequate for calculation of right ventricular systolic pressure. Great Vessels The asc aorta is normal in size. Venous The inferior vena cava is normal in size and collapses greater than 50% with inspiration. Pericardium/Pleural There is a small loculated pericardial effusion overlying the left ventricle. Prior Study Comparison Changes noted compared to prior study dated: 06/27/2008. Measurements 2D Linear Measurements IVSd: 0.95 0.6-0.9/0.6-1.0 cm LVIDd: 4.38 3.9-5.3/4.2-5.9 cm LVIDd Index: 2.32 2.4-3.2/2.2-3.1 cm/m2 LVIDs: 2.82 2.0-3.6 cm LVPWd: 0.68 0.7-1.1 cm Ao Root: 2.40 2.1-3.5 cm LA Diam: 4.20 2.7-3.8/3.0-4.0 cm LAIDs Index: 2.22 1.5-2.3 cm/m2 LV Mass: 137.70 67-162/88-224 g LV Mass Index: 72.86 43-95/49-115 g/m2 LVOT Diam: 1.80 3.0+(-)1.3 cm 2D Systolic Function EF 4C: 66.00 >55% EF 2C: 60.00 >55% EF BiP: 63.10 >55% Mitral Valve MV VTI: 0.58 MV Pk Geovanny: 2.63 MV Mn Geovanny: 1.73 MV Pk Grad: 28.00 MV Mn Grad: 13.00 MV Pk E: 1.74 MV PK A: 2.44 MV Decel Time: 381.00 E/A: 0.70 E'Lateral: 2.50 E'Medial: 6.09 E/E' Med: 28.60 E/E' Lat: 69.60 PHT: 112.00 MVA PHT: 1.96 MVA Continuity: 0.85 Decel [place]: 4.56 Aortic Valve AoV Pk Geovanny: 2.48 AoV Mn Geovanny: 1.72 AoV VTI: 0.38 AoV Pk Grad: 25.00 Aov Mn Grad: 14.00 SELVIN Cont.VTI: 1.29 AI Pk Geovanny: 4.10 AI [place]: 2.90 LVOT LVOT Pk Geovanny: 1.21 LVOT Mn Geovanny: 0.83 LVOT VTI: 0.19 LVOT Pk Grad: 6.00 LVOT Mn Grad: 3.00 LVOT Diam: 1.80 LVOT Area: 2.54 Diastolic Function MV Pk E: 1.74 MV Pk A: 2.44 E/A: 0.70 E'Medial: 6.09 E/E' Med: 28.60 E' Laterial: 2.50 E/E' Lat: 69.60 Right Ventricle TAPSE (mm): 14.30 TVS' Geovanny: 7.90 Tricuspid Valve RA Press: 8.00 Great Vessels Aorta Ao Root-2D: 2.40 2.0-3.7 cm Ao Asc: 2.90 2.1-3.4 cm Pulmonary Valve PV Pk Geovanny: 1.26 Peak PV Grad: 6.00 Updated in Other Vendor System with Status of Final Bib Guy MD electronically signed on 08/10/2022 11:38:56 AM with status of Final
[2022-08-10 07:13] VITALS: BP 158/80; PULSE 84; RESP 19; TEMP 36.1; O2SAT 94
[2022-08-10 07:20] LABS: Glucose, Whole Blood 131 mg/dL (60-115)
[2022-08-10] MEDS: Cholecalciferol (Vitamin D3) 25 MCG TABLET 50 MCG PO (08:28)
[2022-08-10] MEDS: dilTIAZem HCL CD 240 MG CAP.ER.DEG PO (08:29)
[2022-08-10] MEDS: Clopidogrel Bisulfate 75 MG TABLET PO (08:29)
[2022-08-10] MEDS: Cyanocobalamin (Vitamin B-12) 1,000 MCG TABLET 5000 MCG PO (08:29)
[2022-08-10] MEDS: Ferrous Sulfate 324 MG TABLET.DR PO (08:29)
[2022-08-10] MEDS: Montelukast Sodium 10 MG TABLET PO (08:29)
[2022-08-10] MEDS: Famotidine 20 MG TABLET PO (08:30)
[2022-08-10] MEDS: predniSONE 20 MG TABLET PO (08:30)
[2022-08-10] MEDS: Atorvastatin Calcium 80 MG TABLET PO (08:30)
[2022-08-10] MEDS: Escitalopram Oxalate 20 MG TABLET PO (08:30)
[2022-08-10] MEDS: Aspirin Enteric Coated 81 MG TABLET.DR PO (08:30)
[2022-08-10] MEDS: diphenhydrAMINE HCL 25 MG CAPSULE PO (08:30)
[2022-08-10] MEDS: Valsartan 160 MG TABLET PO (08:30)
[2022-08-10] MEDS: allopurinoL 100 MG TABLET PO (08:30)
[2022-08-10] MEDS: Isosorbide Mononitrate 30 MG TAB.ER.24H 15 MG PO (08:30)
[2022-08-10] MEDS: Magnesium Oxide 400 MG TABLET 200 MG PO (08:31)
[2022-08-10] MEDS: Fluticasone/Vilanterol 100/25 BLST.W.DEV 1 PUFF INHALE (08:59)
[2022-08-10 09:00] VITALS: PULSE 83; RESP 20; O2SAT 96
--- NOTE | 2022-08-10 10:19 | P.PNCA_ITS ---
Subjective Subjective Date of Service: 08/10/22 Interval history: She states that she is feeling okay, but is resting in bed. No new complaints. Review of Systems Review of Systems Yes all other systems are reviewed and are negative Constitutional: Reports as per HPI and Reports no additional constitutional complaints Eyes: Reports as per HPI and Denies no additional eye complaints Denies system reviewed and no additional complaints, except as documented and Reports as per HPI Cardiovascular: Reports as per HPI, Reports no additional cardiovascular complaints, Denies acrocyanosis, Denies cool extremities, Denies chest pain, Denies leg edema, Denies lightheadedness, Denies palpitations and Denies dyspnea Respiratory: Reports as per HPI, Denies no additional respiratory complaints and Denies dyspnea Gastrointestinal: Reports as per HPI and Denies no additional gastrointestinal complaints Genitourinary: Reports as per HPI Musculoskeletal: Reports no additional musculoskeletal complaints and Reports as per HPI Skin/Breast: Reports system reviewed and no additional complaints, except as docu Reports system reviewed and no additional complaints, except as documented and Reports as per HPI Psychiatric: Reports no additional psychiatric complaints and Reports as per HPI Endocrine: Reports no additional endocrine complaints, Reports as per HPI and Denies palpitations Hematologic/Lymphatic: Reports no additional hematologic/lymphatic complaints an d Reports as per HPI Allergic/Immunologic: Reports no additional allergic/immunologic complaints and Reports as per HPI Physical Exam Vital Signs: Last Vital Signs Temp 97 F 08/10/22 07:13 Pulse 83 08/10/22 09:00 Resp 20 08/10/22 09:00 BP 158/80 H 08/10/22 07:13 Pulse Ox 94 08/10/22 07:13 O2 Del Method Room Air 08/10/22 07:13 BMI result Body Mass Index 35.6 Const General: comfortable and no acute distress Orientation/consciousness: patient oriented x3 HEENT Other: Unremarkable Head: Yes normal to inspection Neck Neck: Yes normal visual inspection Chest Chest palpation & inspection: normal inspection of the chest Resp Auscultation: clear to auscultation bilaterally Cardio Palpation: normal PMI Heart sounds: S1 normal heart sound present, S2 normal heart sound present, no gallops, no murmurs and no rubs GI Palpation (GI): Soft to palpation Back/Spine/Pelvis Other: unremarkable Skin General skin exam: no rashes or lesions noted Neuro General: patient oriented x3 Extrem General: Yes normal to inspection Psych Mental Status: mental status grossly normal Objective Labs and Meds 08/08/22 23:22 08/09/22 05:27 Lab results: Laboratory Results - last 24 hr 08/09/22 08/09/22 08/09/22 10:58 16:18 20:54 POC Glucose 146 H 88 221 H 08/10/22 07:14 POC Glucose 131 H Progress Note: A&P Assessment and plan (1) Angina at rest: Status: Acute (2) Aortic stenosis: Status: Acute Plan Per cardiology consultation as well as discussion with Dr. Houston, felt to have anginal-type symptoms at rest. It has been felt that she could possibly have left main or multivessel disease. Awaiting an echocardiogram which is being performed at this time. Subsequently, transferred to [facility] for cardiac catheterization. In the interim, continue aspirin, statins, nitrates. Discussed with Dr. Vance. Last echo from 2020 scanned from outside facility- Hyperdynamic LVEF. Moderate aortic stenosis/moderate aortic regurgitation. Moderate mitral regurgitation/moderate to severe mitral stenosis. Time Spent With Patient Time: Total time managing care of this patient today 50 minutes. Progress Note: Quality Stroke Does the patient have a stroke diagnosis?: No Procedures Date of Service Date of Service: 08/10/22
[2022-08-10 10:59] LABS: Glucose, Whole Blood 164 mg/dL (60-115)
[2022-08-10 11:02] LABS: Anion Gap 15 (12-20); Blood Urea Nitrogen 31 mg/dL (9-16); Calcium 9.6 mg/dL (8.4-10.2); Carbon Dioxide 24 mmol/L (22-29); Chloride 103 mmol/L (96-108); Estimated Glomerular Filt Rate 34; Glucose Random 208 mg/dL (60-115); Potassium 3.8 mmol/L (3.3-5.1); Sodium 138 mmol/L (135-145)
[2022-08-10 11:10] LABS: B Type Natriuretic Peptide 457 pg/mL (<100)
[2022-08-10] MEDS: Insulin Lispro 100 UNIT/ML 3 ML VIAL SUBCUT (11:25)
--- NOTE | 2022-08-10 11:37 | PM.DS ---
DS: Providers Provider Date of Service: 08/10/22 Date of admission: 08/09/22 01:19 Date of discharge: 08/10/22 Primary care physician: Jamel Mansfield MD Consults: 08/09/22 01:18 Consult to Cardiology Routine Consulting Provider: [facility] Cardiovascular Services Reason for consultation: chf Has provider been notified: No DS: Diagnosis Discharge Diagnosis (1) Angina at rest: Status: Acute (2) Aortic stenosis: Status: Acute (3) Acute exacerbation of CHF (congestive heart failure): Status: Acute (4) MARBELLA (acute kidney injury): Status: Acute DS: Summary Hospital Course Hospital Course: 81-year-old female past medical history of COPD, CKD stage 3, HTN, depression, GERD, GI bleed, gout, osteoarthritis, peripheral vascular disease, paroxysmal SVT, HLD, type 2 diabetes, presents to the hospital with complaints of chest pain.? She describes the pain as midsternal, nonradiating, 5/10, lasting 45 minutes, and resolving spontaneously.? No alleviating or exacerbating factors.? States that she has been having worsening shortness of breath on exertion.? Denies any orthopnea or PND and extremity edema.? Denies any fever or chills, denies any palpitations.? She states a chronic cough that has not worsened.? Chronic sputum production has not worsened.? Denies any nausea or vomiting, no abdominal pain no diarrhea constipation ?On arrival to the ED patient hemodynamically stable slightly elevated blood pressure Labs are significant for WBC count of 8.8, sodium of 134, creatinine of 1.43 with a baseline of around 1.2 , troponin negative x2, BNP is elevated in the 200s Chest x-ray shows mild interstitial prominence associated with mild edema. hospital course: Patient was admitted because of chest pain and shortness of breath: Initially started on IV Lasix for CHF exacerbation(Etiology unclear echo pending) in the setting of : Troponin, patient currently denies any chest pain, shortness of breath also improved significantly-seen by cardiology during this admission patient started on aspirin continue Plavix and statin, also Imdur added. Patient was also started on Benadryl, prednisone, Pepcid considering contrast allergy. Aortic stenosis appears clinically severe.? echocardiogram today.? May require full evaluation with cardiac catheterization including hemodynamic evaluation of the aortic valve.? Compared with echocardiogram done at outside facility 2 months ago.? Continue aggressive risk factor modification above.? mild marbella on ckd3: Creatinine is 1.49, baseline creatinine is (1.1-1.3), monitor renal function and electrolytes , switched to p.o. Lasix. Above management discussed with the patient in detail and she understand and in agreement with above plan, time spent 50 minute. Time Spent with Patient Time attestation: Total time managing care of this patient today ____ minutes. Discharge coordination time: Greater than 30 minutes Quality: Safe Use of Opioids Does Pt have an Active Cancer Diagnosis on the Problem List?: No Quality: Stroke Does the patient have a stroke diagnosis?: No Physical Exam Vital Signs: Vital Signs: Last Vital Signs Temp 97 F 08/10/22 07:13 Pulse 83 08/10/22 09:00 Resp 20 08/10/22 09:00 BP 158/80 H 08/10/22 07:13 Pulse Ox 94 08/10/22 07:13 O2 Del Method Room Air 08/10/22 07:13 BMI result Body Mass Index 35.6 Appearance: Alert.? Oriented X3.? not in distress.? cvs: rrr, [id number] , no murmur res: clear to auscultation ,no rhonchii or wheezing abd: no rebound or guarding ,nt, bs present. ext pulses present , no cyanosis ,no edema. neuro: axo3 , nonfocal. DS: Data Data Completed and Pending Completed studies during hospitalization [Text1]: Procedures Transfusion of Nonautologous Red Blood Cells into Peripheral Vein, Percutaneous Approach (01/21/22) Labs on day of discharge: Laboratory Results - last 24 hr 08/09/22 08/09/22 08/10/22 16:18 20:54 07:14 Sodium Potassium Chloride Carbon Dioxide Anion Gap BUN Creatinine Estim Creat Clear Calc Estimated GFR POC Glucose 88 221 H 131 H Random Glucose Calcium B-Natriuretic Peptide 08/10/22 08/10/22 08/10/22 10:19 10:19 10:55 Sodium 138 Potassium 3.8 Chloride 103 Carbon Dioxide 24 Anion Gap 15 BUN 31 H Creatinine 1.49 H Estim Creat Clear Calc 30.0 Estimated GFR 34 POC Glucose 164 H Random Glucose 208 H Calcium 9.6 B-Natriuretic Peptide 457 H Discharge Plan Discharge Anticipated Discharge Date/Time: 08/10/22 11:32 Patient Disposition: Xfer Acute Care Hospital Discharge Diagnosis: chf , Referrals: [facility] Cardiovascular Services [Provider Group] - 1 week Jamel Mansfield MD [Primary Care Provider] - 2 days Discharge Medications: New aspirin 81 mg Tablet,Delayed Release (Dr/Ec) 81 mg PO DAILY Qty: 1 0RF prednisone 20 mg Tablet 20 mg PO BIDWM Qty: 4 0RF isosorbide mononitrate 30 mg Tablet Extended Release 24 Hr 15 mg PO DAILY Qty: 1 0RF Protocol: Hold for SBP< HOLD for SBP < : 90 famotidine 20 mg Tablet 20 mg PO BID Qty: 4 0RF diphenhydramine HCl 25 mg Capsule 25 mg PO BID Qty: 4 0RF magnesium 200 mg tablet 200 mg PO BID Qty: 1 0RF Continued montelukast 10 mg tablet 10 mg PO DAILY Qty: 90 1RF allopurinol 100 mg tablet 100 mg PO DAILY 90 Days Qty: 90 1RF atorvastatin [Lipitor] 80 mg tablet 80 mg PO DAILY Qty: 90 0RF Januvia 100 mg tablet 100 mg PO DAILY 30 Days Qty: 30 3RF valsartan 160 mg Tablet 160 mg PO DAILY citalopram 40 mg tablet 40 mg PO DAILY furosemide 20 mg tablet 20 mg PO DAILY melatonin 10 mg Tablet 10 mg PO BEDTIME PRN (Reason: Insomnia) glimepiride 1 mg tablet 1 mg PO DAILY Rx Instructions: administer with breakfast fluticasone propion-salmeterol [Advair Diskus] 250-50 mcg/dose blister with device 1 inh inhalation BID trazodone 50 mg tablet 50 mg PO BEDTIME PRN (Reason: Insomnia) mirtazapine 15 mg tablet 15 mg PO BEDTIME diltiazem HCl 240 mg capsule,ext.rel 24h degradable 240 mg PO DAILY ferrous sulfate [Feosol] 325 mg (65 mg iron) tablet 325 mg PO BID Hold Instructions: Dr Haji to decide clopidogrel 75 mg tablet 75 mg PO DAILY Hold Instructions: Dr Haji to decide magnesium 200 mg tablet 400 mg PO DAILY mecobalamin (vitamin B12) 5,000 mcg tablet,disintegrating 5,000 mcg PO DAILY cholecalciferol (vitamin D3) 50 mcg (2,000 unit) capsule 50 mcg PO DAILY 90 Days Qty: 90 2RF lansoprazole [Prevacid] 30 mg capsule,delayed release(DR/EC) 30 mg PO DAILY@0630 Discharge Orders: Discharge Order (Routine); Ordered 08/10/22 Ordered By: Dharmesh Vance Diet: Advance to usual diet Activity on Discharge: As tolerated Stand Alone Forms: Patient Portal Discharge page Activity Restrictions/Additional Instructions: Take your medications as prescribed. Care Plan Goals: Patient was admitted because of chest pain and shortness of breath: Initially started on IV Lasix for CHF exacerbation in the setting of : Troponin, patient currently denies any chest pain, shortness of breath also improved significantly-seen by cardiology during this admission patient started on aspirin continue Plavix and statin, also Imdur added. Patient was also started on Benadryl, prednisone, Pepcid considering contrast allergy. Aortic stenosis appears clinically severe.? echocardiogram today.? May require full evaluation with cardiac catheterization including hemodynamic evaluation of the aortic valve.? Compared with echocardiogram done at outside facility 2 months ago.? Continue aggressive risk factor modification above.? mild marbella on ckd3: Creatinine is 1.49, baseline creatinine is (1.1-1.3), monitor renal function and electrolytes , switched to p.o. Lasix. Health Concerns: As above. Plan of Treatment: As above. Assessment: As above. Patient Instructions: Chest Pain (ED), Shortness of Breath (ED)
--- NOTE | 2022-08-10 12:29 | MHC.CM.PN ---
ACUTE CARE TRANSFER
--- NOTE | 2022-08-10 12:39 | MHC.CM.PN ---
CM MET WITH PT AND DAUGHTER, YASMIN, AT BEDSIDE PT LIVES ALONE AND IS INDEPENDENT WITH CARE SHE HAS MEALS ON WHEELS AND HOUSEKEEPING 1 TIME PER WEEK FOR TWO HOURS SHE HAS A CANE SHE USES ONLY WHEN OUT OF THE HOUSE. HER PCP IS ISABELLA SMITH SHE HAS A HCP NAMING HER DAUGHTER HER AGENT, COPY REQUESTED SHE IS SUSANNAH UNDERWOOD WITH TWO BOOSTERS IMM DELIVERED [place] [facility] [place]
--- NOTE | 2022-08-10 16:13 | PC.NURSE ---
report given to [facility] RN and EMS transport. Paperwork given to EMS transport. Pt was educated on discharge paperwork. Per [facility], keep IV in place, [facility] RN will d/c upon arrival despite IV being a field IV. all belongings with pt
== END 2022-08-10 16:13 | disposition short-term general hospital (02) | DRG 307 ==
LOC: HO.ED 08-09 01:25 → HO.EDOVER 08-09 01:34 → HO.S3 08-09 07:55
PROVIDERS: Physician Assistant; Admitting Provider Internal Medicine; Emergency Provider Emergency Medicine; PCP Internal Medicine; Visit Provider Internal Medicine
DX: I35.0 Nonrheumatic aortic (valve) stenosis (principal); I13.0 Hypertensive heart and chronic kidney disease with heart failure and stage 1 through stage 4 chronic kidney disease, or unspecified chronic kidney disease; N17.9 Acute kidney failure, unspecified; E78.00 Pure hypercholesterolemia, unspecified; M54.59 Other low back pain; N18.30 Chronic kidney disease, stage 3 unspecified; E11.22 Type 2 diabetes mellitus with diabetic chronic kidney disease; I25.118 Atherosclerotic heart disease of native coronary artery with other forms of angina pectoris; E11.51 Type 2 diabetes mellitus with diabetic peripheral angiopathy without gangrene; I50.9 Heart failure, unspecified; J44.9 Chronic obstructive pulmonary disease, unspecified; G89.29 Other chronic pain; Z20.822 Contact with and (suspected) exposure to COVID-19; Z87.891 Personal history of nicotine dependence; Z91.041 Radiographic dye allergy status; Z88.0 Allergy status to penicillin; Z79.02 Long term (current) use of antithrombotics/antiplatelets; Z79.51 Long term (current) use of inhaled steroids; Z79.82 Long term (current) use of aspirin; Z79.84 Long term (current) use of oral hypoglycemic drugs; Z79.899 Other long term (current) drug therapy
CPT/HCPCS: 36415; 71045; 80048; 80053; 81001; 82947; 83735; 83880; 84484; 85025; 85379; 85610; 87635; 93005; 93306; 94640; 96361; 96374; 99285; J1643; J1940; Q9957

== ENCOUNTER 2022-10-30 09:19 | Outpatient (REF) | payer MEDICARE, OTHER, SELFPAY ==
[2022-10-30 11:17] LABS: Appearance Urine Clear; Color Urine Yellow; Glucose Urine UA Negative (Negative); Leukocyte Esterase Urine Moderate (2+) (Negative); MANUAL DIFF FLAG NO; Nitrite Urine Negative (Negative); PH 6.5 (5.0-9.0); Specific Gravity - Urine 1.015 (1.005-1.025); UMIC TRIGGER UACC YES; Urine Blood Negative (Negative); Urine Ketones Negative (Negative); Urine Protein Negative (Neg-Trace)
[2022-10-30 11:20] LABS: Bacteria Urine Trace (None Seen); Hyaline Casts Urine 0-2 /LPF (0-2); RBC Urine 0-2 /HPF (0-2); UACC Culture Trigger YES
[2022-10-30 11:30] LABS: Basophils Percent Auto 0.5 % (0-2); Eosinophils Absolute Auto 0.2 X10*3/uL (0.0-0.4); Eosinophils Percent Auto 2.5 % (0-4); Hematocrit 37.7 % (37.0-47.0); Hemoglobin 11.7 g/dl (12.0-16.0); Imm Gran Abs Auto 0.04 X10*3/uL (0.00-0.03); Imm Gran Pct Auto 0.5 % (0.0-0.4); Lymphocytes Absolute Auto 0.8 X10*3/uL (1.2-4.9); Lymphocytes Percent Auto 8.9 % (20-40); Mean Corpuscular Hemoglobin 27.3 pg (27.0-33.0); Mean Corpuscular Volume 87.9 fL (80.0-98.0); Mean Platelet Volume 9.3 fL (9.4-12.3); Monocytes Absolute Auto 0.7 X10*3/uL (0.1-1.2); Monocytes Percent Auto 7.9 % (2-11); Neutrophils Absolute Auto 6.8 x10*3/uL (2.0-8.3); Neutrophils Percent Auto 79.7 % (45-73); Platelet Count 327 X10*3/uL (160-400); Red Blood Count 4.29 X10*6/uL (4.20-5.50); Red Cell Distribution Width 14.8 % (11.0-16.0); White Blood Count 8.5 X10*3/uL (4.8-10.8)
[2022-10-30 11:50] LABS: Estimated Average Glucose 117 mg/dL; Hemoglobin A1c % 5.7 %
[2022-10-30 12:03] LABS: Alanine Aminotransferase 8 U/L (0-31); Albumin Level 3.5 g/dL (3.5-5.0); Alkaline Phosphatase 86 U/L (39-117); Anion Gap 14 (12-20); Aspartate Amino Transferase 10 U/L (5-31); Bilirubin Total 0.4 mg/dL (0.0-1.0); Blood Urea Nitrogen 22 mg/dL (9-16); Calcium 10.1 mg/dL (8.4-10.2); Carbon Dioxide 25 mmol/L (22-29); Chloride 105 mmol/L (96-108); Cholesterol 148 mg/dL; Estimated Glomerular Filt Rate 39; Glucose Fasting 122 mg/dL (60-99); HDL Cholesterol 27 mg/dL; LDL Cholesterol Calculated 96 mg/dl; Magnesium 1.9 mg/dL (1.6-2.6); Sodium 140 mmol/L (135-145); Total Protein 6.7 g/dL (6.5-8.0); Triglycerides 125 mg/dL
[2022-10-30 12:24] LABS: TSH reflex Free T4 0.56 uIU/mL (0.32-4.0); Vitamin D 25-OH Total 40.5 ng/mL (>30)
[2022-10-30 12:43] LABS: Folate 12.7 ng/mL (> or = 4.0)
[2022-10-30 13:11] LABS: Creatinine Urine 96.37 mg/dL; Microalbum/Creatinine Ratio Ur 21.7 ug/mg cr
[2022-10-30 13:54] LABS: Vitamin B12 > 2000 pg/mL (200-900)
== END 2022-10-30 09:20 | disposition home or self-care (01) ==
LOC: HO.HMGCLDS 09:19
PROVIDERS: PCP Internal Medicine; Visit Provider Internal Medicine
DX: E11.9 Type 2 diabetes mellitus without complications (principal); I10 Essential (primary) hypertension; E78.00 Pure hypercholesterolemia, unspecified; E55.9 Vitamin D deficiency, unspecified; E53.8 Deficiency of other specified B group vitamins; R82.90 Unspecified abnormal findings in urine
CPT/HCPCS: 36415; 80053; 80061; 81001; 82043; 82306; 82607; 82746; 83036; 83735; 84443; 85025; 87086

== ENCOUNTER 2023-01-07 14:46 | Outpatient (AMB) | payer MEDICARE, OTHER, SELFPAY ==
[2023-01-07 14:52] VITALS: BP 134/68; PULSE 52; O2SAT 95; BMI 34.9
--- NOTE | 2023-01-07 14:52 | MHC.OFFVIS ---
Intake Vital Signs 01/07/23 14:52 Height 5 ft 2 in Weight 190 lb 11.198 oz BMI 34.9 BP 134/68 Blood Pressure Location Lt brachial Position Sitting Pulse 52 Pulse Source Pulse Oximeter Pulse Oximetry (%) 95 Oxygen Delivery Method Room Air Intake Visit Reasons: Shortness of breath Allergies Iodinated Contrast Media [IV DYE, IODINE CONTAINING CONTRAST ] Allergy (Severe, Verified 01/07/23 15:30) HIVE Penicillins [PENICILLINS] Allergy (Severe, Verified 01/07/23 15:30) HIVES Medication List - Last Reconciled 01/07/23 by Schuyler Cardona MD allopurinol 100 mg PO DAILY 90 days atorvastatin (Lipitor) 80 mg PO DAILY cholecalciferol (vitamin D3) 50 mcg PO DAILY 90 days citalopram 30 mg PO DAILY diltiazem HCl ER 240 mg PO DAILY famotidine 20 mg PO BID ferrous sulfate (Feosol) 325 mg PO BID fluticasone propion-salmeterol 250-50 mcg/dose (Advair Diskus) 1 inh inhalation BID glimepiride 1 mg PO DAILY Incruse Ellipta 62.5 mcg/actuation (umeclidinium) 1 inh inhalation DAILY 30 days NS Januvia (sitagliptin phosphate) 100 mg PO DAILY 30 days NS lansoprazole (Prevacid) 30 mg PO DAILY@0630 magnesium 400 mg PO DAILY mecobalamin (vitamin B12) 5,000 mcg PO DAILY melatonin 10 mg PO BEDTIME PRN metoprolol succinate ER 100 mg PO DAILY 90 days mirtazapine 15 mg PO BEDTIME montelukast 10 mg PO DAILY nystatin 1 appl topical TID 10 days potassium chloride ER 40 mEq (2 x 20 mEq) PO DAILY 90 days potassium chloride ER 40 mEq (4 x 10 mEq) PO DAILY 90 days prothrombin time/INR test metr (Coaguchek XS Pro) As directed prothrombin time/INR test metr (Coaguchek XS Pro) As directed torsemide 40 mg PO DAILY trazodone 50 mg PO BEDTIME PRN warfarin Take 1 tablet daily or as instructed orally; Do you need a note to return to daycare/school/sports/work: No HPI Shortness of breath HPI Details HI say is 82 years old, who has been followed up for her COPD/bronchial asthma for many years. The pulmonary issue is mild and remained well controlled with the use of Advair 250-50 b.i.d.. Also has had mild degree of allergic rhinitis which. Was always under control Today she comes in with much increased shortness of breath. On minimal effort RECENT HISTORY IS SIGNIFICANT. SHE HAD PNEUMONIA IN SEPTEMBER OF THIS YEAR, SHE WAS TREATED AT [facility], FOR ALMOST 2 WEEKS, FOLLOWED BY REHAB PLACEMENT FOR A FEW WEEKS. AT THE TIME OF DISCHARGE SHE WAS PRESCRIBED INCRUSE ELLIPTA IN ADDITION TO ADVAIR. SHE DID NOT NEED OXYGEN SUPPLEMENTATION. SHE HAS BEEN RECOVERING AT HOME BUT VERY SLOWLY. COMES HERE FOR FOLLOW-UP TODAY COMPLAINING OF SHORTNESS OF BREATH ON MINIMAL EFFORT. THIS THE IS NOT ACCOMPANIED BY CHEST. PAIN OR WHEEZING Currently on Advair 250-50 and Incruse Ellipta, and she is wondering if she needs to continue both inhalers. [facility] Medical History Allergic rhinitis Anemia Anxiety Benign essential hypertension CHF (congestive heart failure) Chronic diastolic heart failure Chronic kidney disease (CKD), stage III (moderate) COPD (chronic obstructive pulmonary disease) Depression Exertional dyspnea GERD without esophagitis GI bleed Gout Hearing impairment Hemorrhagic cystitis Hypomagnesemia Microcytic anemia Multiple thyroid nodules Obesity (BMI 30-39.9) Obesity (BMI 30-39.9) Occult blood positive stool Osteoarthritis of ankle and foot Osteopenia PAC (premature atrial contraction) Peripheral vascular disease Pneumonia PSVT (paroxysmal supraventricular tachycardia) Pure hypercholesterolemia Sciatica of right side Thrush, oral 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 Valvular heart disease Vitamin D deficiency Surgical History History of angioplasty of peripheral vessel (~08/13/20) History of appendectomy History of biopsy History of bladder surgery History of cataract surgery History of colonoscopy History of hysterectomy History of neck surgery History of tonsillectomy and adenoidectomy Family History Father Stroke CVD (cardiovascular disease) Mother CVD (cardiovascular disease) Hypertension CAD (coronary artery disease) Other Mental health disorder Social History Household Members: None Housing: Condominium Do you presently have visiting nurse or other home services: Yes (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[employer]) Alcohol intake: current Alcohol intake frequency: holidays/special occasions only Alcohol type: beer and hard liquor Patient Tobacco Use Status: Former Tobacco user Quit Date: 1999 Tobacco use type: Cigarette Cigarette Packs Per Day: 2 Cigarettes Per Day: 40.0 Years Smoked: 40 e-Cigarette/Vaping Use: Never Used Second Hand Smoke Exposure: Yes service: No Current occupational status: retired Cognitive needs: Yes (cane) Hearing needs: Yes Vision needs: Yes Review of Systems Const All systems reviewed & are unremarkable except as noted in HPI and below Eyes Reports no additional complaints ENT Reports nasal congestion (Mostly controlled with use of med) Card Denies chest pain, Denies leg edema and Reports dyspnea on exertion (Her shortness of breath on activity is much increase than before) Resp Denies cough, Reports dyspnea on exertion (Her shortness of breath on activity is much increase than before) and Denies wheezing Reports no additional complaints Musc Reports back pain (Mild) and Reports arthralgias (Mild in multiple joints) Skin/Breast Reports system reviewed and no additional complaints, except as documented Neuro Reports no additional complaints Psych Reports anxiety Aller/Immun Denies wheezing Physical Exam Vital Signs: Last Vital Signs Pulse 52 01/07/23 14:52 BP 134/68 01/07/23 14:52 Pulse Ox 95 01/07/23 14:52 Oxygen Delivery Method Room Air 01/07/23 14:52 BMI result Body Mass Index 34.9 Const General: comfortable, no acute distress, alert and awake Orientation/consciousness: patient oriented x3 HEENT Head: Yes normal to inspection General nose exam: No nasal polyps present and No nasal discharge present Face and sinus: Yes sinuses nontender Mouth: oropharynx abnormals (She has erythema of the oral mucosa and white spots over the soft palate ) Throat: Yes posterior oropharynx normal Eyes General: appearance normal, both eyes and all related structures Neck Neck: Yes normal visual inspection, Yes no lymphadenopathy, Yes trachea midline and Yes no JVD Thyroid: Thyroid normal Chest Chest palpation & inspection: normal inspection of the chest, normal palpation of entire chest wall and no tenderness Resp Other: Percussion note is resonant. Breath sounds are equal on both sides, slightly distant. No wheezes rhonchi or crepitations are heard. Cardio Palpation: normal PMI Rate: regular rate Rhythm: regular rhythm Heart sounds: no gallops and Murmur heart sound present (Loud systolic murmur at the aortic area as well as over left sternal border) GI Palpation (GI): Soft to palpation, nontender, No hepatosplenomegaly present and no masses Auscultation: normal bowel sounds Back/Spine/Pelvis Thoracic/Lumbar Spine: thoracic and lumbar spine normal to inspection and thoraco-lumbar ROM limited Skin General skin exam: no rashes or lesions noted Neuro General: patient oriented x3 and no focal motor deficits Cranial nerves: Yes CN's II-XII intact bilaterally Extrem General: Yes normal to inspection, Yes no clubbing, cyanosis or edema and Yes no calf tenderness Psych Appearance: grossly normal and well kempt Speech and movement: Normal speech and movement present Results Reviewed Results Reviewed: Because of her shortness of breath I made her walk in the hallway for a few minutes. She walked only for about 3 minutes and after that could not go any further due to shortness of breath. O2 SAT REMAINED 94-96% SO SHORTNESS OF BREATH WAS NOT DUE TO HYPOXEMIA. ALSO SHE DID NOT HAVE ANY WHEEZING. CHEST XRAY ,, SHOWS CARDIOMEGALY AND INCREASED BRONCHOVASCULAR MARKINGS . NO INFILTERATES . Assessment & Plan Assessment & Plan (1) COPD (chronic obstructive pulmonary disease): Comment: SHE HAS MILD ASTHMA/COPD. SINCE SHE WAS TREATED FOR PNEUMONIA A FEW MONTHS AGO, SHORTNESS OF BREATH IS MUCH WORSE. SHE IS USING ADVAIR 250-51 INHALATION B.I.D., AND ALSO INCRUSE ELLIPTA 1 INHALATION DAILY. STILL HER SHORTNESS OF BREATH IS WORSE WITH SEEMS TO BE MORE DUE TO CARDIAC ISSUES AND GENERAL DECONDITIONING. Code(s): J44.9 - Chronic obstructive pulmonary disease, unspecified Qualifiers: COPD type: unspecified COPD Qualified Code(s): J44.9 - Chronic obstructive pulmonary disease, unspecified (2) Pneumonia: Comment: TREATED FOR PNEUMONIA BACK IN SEPTEMBER OF THIS YEAR, THEN SHE WAS AT A REHAB FACILITY FOR A FEW WEEKS. TODAY THE LUNGS ARE CLEAR. CHEST X-RAY IS ORDERED FOR FOLLOW-UP. * I REVIEWED THE IMAGING, AND THERE IS NO RESIDUAL CONSOLIDATION OR INFILTRATES, BILATERAL INCREASED BRONCHOVASCULAR MARKINGS MAY BE SECONDARY TO MILD CONGESTIVE HEART FAILURE., Code(s): J18.9 - Pneumonia, unspecified organism (3) Aortic stenosis: Comment: PATIENT DOES HAVE SEVERE AORTIC STENOSIS ON AUSCULTATION Code(s): I35.0 - Nonrheumatic aortic (valve) stenosis (4) Chronic diastolic heart failure: Comment: SHE IS BEING FOLLOWED BY CARDIOLOGY REGULARLY, AND BEING TREATED FOR CHRONIC DIASTOLIC CONGESTIVE HEART FAILURE. I THINK HER CARDIAC FUNCTION HAS DETERIORATED WHICH ACCOUNTS FOR HER INCREASED SHORTNESS OF BREATH. Code(s): I50.32 - Chronic diastolic (congestive) heart failure Orders: Orders XR chest 2V Today I50.32 - Chronic diastolic (congestive) heart failure, J18.9 - Pneumonia, unspecified organism, J44.9 - Chronic obstructive pulmonary disease, unspecified Medications: Discontinued Advair Diskus 250-50 mcg/dose 1 ea inhalation BID 60 ea 3RF NS J44.9 - Chronic obstructive pulmonary disease, unspecified glimepiride administer with breakfast 1 mg PO QAM 30 days 30 tabs 3RF Coding Level of Care Code Est Pt Level 4 (68992) Diagnoses COPD (chronic obstructive pulmonary disease) J44.9 COPD type: unspecified COPD Pneumonia J18.9 Aortic stenosis I35.0 Chronic diastolic heart failure I50.32
== END 2023-01-07 15:26 | disposition home or self-care (01) ==
PROVIDERS: PCP Internal Medicine; Visit Provider Internal Medicine
DX: J44.9 Chronic obstructive pulmonary disease, unspecified (principal); J18.9 Pneumonia, unspecified organism; I35.0 Nonrheumatic aortic (valve) stenosis; I50.32 Chronic diastolic (congestive) heart failure
CPT/HCPCS: 99214

== ENCOUNTER 2023-01-07 14:46 | Outpatient (REF) | payer MEDICARE, OTHER, SELFPAY ==
--- NOTE | ~2023-01-07 | XR_ITS ---
EXAMINATION: XR CHEST CLINICAL INFORMATION: Pneumonia. COMPARISON: Chest radiographs as remote as 10/02/2010; CT chest dated 08/12/2008.. TECHNIQUE: Frontal and lateral views of the chest were obtained. FINDINGS: The heart, great vessels, pulmonary vasculature and mediastinum are normal. The lungs show no focal infiltrate, effusion or pneumothorax. There is chronic left base scar/subsegmental atelectasis. There is no acute osseous abnormality. XR/XR chest 2V IMPRESSION: No active cardiopulmonary disease. There is stable chronic left base scar/subsegmental atelectasis.
== END 2023-01-07 14:47 | disposition home or self-care (01) ==
LOC: HO.XRAY 14:46
PROVIDERS: Internal Medicine; PCP Internal Medicine; Visit Provider Internal Medicine
DX: J18.9 Pneumonia, unspecified organism (principal); I50.32 Chronic diastolic (congestive) heart failure; J44.9 Chronic obstructive pulmonary disease, unspecified; I35.0 Nonrheumatic aortic (valve) stenosis
CPT/HCPCS: 71046; 99212

== ENCOUNTER 2023-01-26 11:19 | Outpatient (REF) | payer MEDICARE, OTHER, SELFPAY ==
[2023-01-26 13:33] LABS: MANUAL DIFF FLAG NO
[2023-01-26 14:01] LABS: Basophils Percent Auto 0.6 % (0-2); Eosinophils Absolute Auto 0.5 X10*3/uL (0.0-0.4); Eosinophils Percent Auto 6.8 % (0-4); Hematocrit 37.8 % (37.0-47.0); Hemoglobin 11.6 g/dl (12.0-16.0); Imm Gran Abs Auto 0.02 X10*3/uL (0.00-0.03); Imm Gran Pct Auto 0.3 % (0.0-0.4); Lymphocytes Absolute Auto 0.6 X10*3/uL (1.2-4.9); Mean Corpuscular HGB Conc 30.7 g/dl (31.0-35.0); Mean Corpuscular Hemoglobin 27.1 pg (27.0-33.0); Mean Corpuscular Volume 88.3 fL (80.0-98.0); Mean Platelet Volume 9.3 fL (9.4-12.3); Monocytes Absolute Auto 0.7 X10*3/uL (0.1-1.2); Monocytes Percent Auto 9.3 % (2-11); Neutrophils Absolute Auto 5.2 x10*3/uL (2.0-8.3); Platelet Count 282 X10*3/uL (160-400); Red Blood Count 4.28 X10*6/uL (4.20-5.50); Red Cell Distribution Width 15.7 % (11.0-16.0)
[2023-01-26 14:04] LABS: Estimated Average Glucose 114 mg/dL; Hemoglobin A1c % 5.6 % (<6.0)
[2023-01-26 14:11] LABS: Alanine Aminotransferase 11 U/L (0-31); Albumin Level 3.8 g/dL (3.5-5.0); Alkaline Phosphatase 88 U/L (39-117); Anion Gap 14 (12-20); Aspartate Amino Transferase 12 U/L (5-31); Bilirubin Total 0.6 mg/dL (0.0-1.0); Blood Urea Nitrogen 23 mg/dL (9-16); Calcium 9.8 mg/dL (8.4-10.2); Carbon Dioxide 23 mmol/L (22-29); Chloride 108 mmol/L (96-108); Cholesterol 142 mg/dL (<200); Estimated Glomerular Filt Rate 44; Glucose Fasting 108 mg/dL (60-99); HDL Cholesterol 28 mg/dL (>40); LDL Cholesterol Calculated 92 mg/dL (<100); Potassium 4.1 mmol/L (3.3-5.1); Sodium 141 mmol/L (135-145); Triglycerides 114 mg/dL (<150)
[2023-01-26 14:19] LABS: Appearance Urine Clear; Color Urine Yellow; Glucose Urine UA Negative (Negative); Leukocyte Esterase Urine Trace (Negative); Nitrite Urine Negative (Negative); PH 7.5 (5.0-9.0); Specific Gravity - Urine 1.015 (1.005-1.025); UMIC TRIGGER UACC YES; Urine Blood Negative (Negative); Urine Ketones Negative (Negative); Urine Protein Trace mg/dL (Neg-Trace)
[2023-01-26 14:25] LABS: Bacteria Urine None Seen (None Seen); Hyaline Casts Urine 0-2 /LPF (0-2); RBC Urine 0-2 /HPF (0-2); WBC Urine 0-5 /HPF (0-5)
[2023-01-26 14:30] LABS: TSH reflex Free T4 0.33 uIU/mL (0.32-4.0)
[2023-01-26 14:49] LABS: Creatinine Urine 74.84 mg/dL; Microalbum/Creatinine Ratio Ur 93.5 ug/mg cr (<30)
== END 2023-01-26 11:20 | disposition home or self-care (01) ==
LOC: HO.HMGCLDS 11:19
PROVIDERS: PCP Internal Medicine; Visit Provider Internal Medicine
DX: I10 Essential (primary) hypertension (principal); E78.00 Pure hypercholesterolemia, unspecified; E11.9 Type 2 diabetes mellitus without complications; E55.9 Vitamin D deficiency, unspecified; R30.0 Dysuria
CPT/HCPCS: 36415; 80053; 80061; 81001; 81003; 82043; 82306; 82570; 83036; 84443; 85025

== ENCOUNTER 2023-01-29 13:21 | Outpatient (AMB) | payer MEDICARE, OTHER, SELFPAY ==
[2023-01-29 13:22] VITALS: BP 122/80; PULSE 54; O2SAT 92; BMI 34.8
--- NOTE | 2023-01-29 13:22 | A.OFFPC_ITS ---
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 Required: No Accompanied by: Self / Same As Patient Allergies Iodinated Contrast Media [IV DYE, IODINE CONTAINING CONTRAST ] Allergy (Severe, Verified 01/29/23 13:53) HIVE Penicillins [PENICILLINS] Allergy (Severe, Verified 01/29/23 13:53) HIVES Medication List - Last Reconciled 01/29/23 by Jamel Mansfield MD allopurinol 100 mg PO DAILY 90 days atorvastatin (Lipitor) 80 mg PO DAILY cholecalciferol (vitamin D3) 50 mcg PO DAILY 90 days citalopram 30 mg PO DAILY diltiazem HCl ER 240 mg PO DAILY famotidine 20 mg PO BID ferrous sulfate (Feosol) 325 mg PO BID fluticasone propion-salmeterol 250-50 mcg/dose (Advair Diskus) 1 inh inhalation BID glimepiride 1 mg PO DAILY Incruse Ellipta 62.5 mcg/actuation (umeclidinium) 1 inh inhalation DAILY 30 days NS Januvia (sitagliptin phosphate) 100 mg PO DAILY 30 days NS lansoprazole (Prevacid) 30 mg PO DAILY@0630 magnesium 400 mg PO DAILY mecobalamin (vitamin B12) 5,000 mcg PO DAILY melatonin 10 mg PO BEDTIME PRN metoprolol succinate ER 100 mg PO DAILY 90 days mirtazapine 15 mg PO BEDTIME montelukast 10 mg PO DAILY nystatin 1 appl topical TID 10 days potassium chloride ER 40 mEq (2 x 20 mEq) PO DAILY 90 days potassium chloride ER 40 mEq (4 x 10 mEq) PO DAILY 90 days prothrombin time/INR test metr (Coaguchek XS Pro) As directed prothrombin time/INR test metr (Coaguchek XS Pro) As directed torsemide 40 mg PO DAILY trazodone 50 mg PO BEDTIME PRN warfarin Take 1 tablet daily or as instructed orally; Tobacco use date assessed: 01/29/23 Fall risk assessment: No Falls in past year Last assessed Fall Risk: 01/29/23 Dental Screening Dental Screen Date: 01/29/23 Did you have a dental visit in the last 12 months?: Yes Did you have a dental problem in the last 6 months where you did not have access to dental care?: No Was dental information given to patient?: Patient has dentist HPI hyperlipidemia, DM, pneumonia HPI Details Patient comes in today for her follow up visit States that she is still experiencing frequent SUAREZ and weakness She was discharged from rehab last month - states that physical therapy and rehab did help her a lot to get back to her baseline She denies any headaches or dizziness Denies any chest pains No nausea / vomiting, no abdominal pain No change in bowel habits noted Patient also checks her own INR now and states that her INR was at 1.9 earlier this morning but has not yet received any instruction on how to adjust her Coumadin States that she normally takes Coumadin 5 mg QD but took one and half tablet last night Patient also had her follow-up labs done a few days ago - to discuss her results [facility] Medical History Pneumonia Chronic diastolic heart failure CHF (congestive heart failure) Thrush, oral GI bleed Occult blood positive stool Microcytic anemia Valvular heart disease Exertional dyspnea Hemorrhagic cystitis Osteopenia Toxic multinodular goiter Obesity (BMI 30-39.9) Hearing impairment Peripheral vascular disease Obesity (BMI 30-39.9) Depression Anxiety Osteoarthritis of ankle and foot Vitamin D deficiency Allergic rhinitis Anemia GERD without esophagitis Gout Hypomagnesemia Multiple thyroid nodules Pure hypercholesterolemia Benign essential hypertension PSVT (paroxysmal supraventricular tachycardia) PAC (premature atrial contraction) COPD (chronic obstructive pulmonary disease) Chronic kidney disease (CKD), stage III (moderate) Type 2 diabetes mellitus with diabetic chronic kidney disease Sciatica of right side Surgical History History of colonoscopy History of angioplasty of peripheral vessel (~08/13/20) History of biopsy History of neck surgery History of cataract surgery History of bladder surgery History of tonsillectomy and adenoidectomy History of appendectomy History of hysterectomy Family History Father Stroke CVD (cardiovascular disease) Mother CVD (cardiovascular disease) Hypertension CAD (coronary artery disease) Other Mental health disorder Social History Household Members: None Housing: Condominium Do you presently have visiting nurse or other home services: Yes (casino controller once per week- [facility]) Alcohol intake: current Alcohol intake frequency: holidays/special occasions only Alcohol type: beer and hard liquor Patient Tobacco Use Status: Former Tobacco user Quit Date: 1999 Tobacco use type: Cigarette Cigarette Packs Per Day: 2 Cigarettes Per Day: 40.0 Years Smoked: 40 e-Cigarette/Vaping Use: Never Used Second Hand Smoke Exposure: Yes service: No Current occupational status: retired Cognitive needs: Yes (cane) Hearing needs: Yes Vision needs: Yes Questionnaire PHQ-9 Over the last 2 weeks, how often have you been bothered by any of the following problems? 1. Little interest or pleasure in doing things: not at all 2. Feeling down, depressed, or hopeless: not at all 3. Trouble falling or staying asleep, or sleeping too much: not at all 4. Feeling tired or having little energy: not at all 5. Poor appetite or overeating: not at all 6. Feeling bad about yourself - or that you are a failure or have let yourself or your family down: not at all 7. Trouble concentrating on things, such as reading the newspaper or watching television: not at all 8. Moving or speaking so slowly that other people could have noticed. Or the opposite - being so fidgety or restless that you have been moving around a lot more than usual: not at all 9. Thoughts that you would be better off or of hurting yourself in some way: not at all Total score: 0 Depression Screening Interpretation: Negative 91511 - PHQ-9 Billing: Yes Source: Developed by Drs. Steven Hebert, Ursula Watson, Jared Joshi and colleagues, with an educational fredrick from [employer]. Thrive Questionnaire Date Thrive assessed: 01/29/23 I am a: Patient What is your living situation today?: I have a steady place to live Within the past 12 months, did the food you bought not last and you didn't have the money to get more?: Never true Within the past 12 months, did you worry whether your food would run out before you got money to buy more?: Never true Do you have trouble paying for medicines?: No Do you have trouble getting transportation to medical appointments?: No Do you have trouble paying your heating and electricity bill?: No Do you have trouble taking care of your child, family member or friend?: No Do you have trouble with day-to-day activities such as bathing, preparing meals, shopping, managing finances, etc.?: No Are you currently unemployed and looking for a job?: No Are you interested in more education?: No Please select the resources that you would like help with: None Currently or been in a relationship where the following occur: no concerns reported AUDIT C Alcohol Use Questionnaire (AUDIT-C) 1. How often do you have a drink containing alcohol?: Never 3. How often do you have six or more drinks on one occasion?: Never Total Score: 0 Score Reviewed/Action Taken: Yes ABEL-7 AMB Questionnaire ABEL-7 Date ABEL - 7 assessed: 01/29/23 Feeling nervous, anxious, or on edge: 1 = Several days Not being able to stop or control worryin = Not at all Worrying too much about different things: 0 = Not at all Trouble relaxin = Not at all Being so restless that it is hard to sit still: 0 = Not at all Becoming easily annoyed or irritable: 0 = Not at all Feeling afraid as if something awful might happen: 0 = Not at all Total ABEL-7 score (0-4 normal; 5-9 mild; 10-14 moderate; 15-21 severe): 1 Source: Developed by Drs. Steven Hebert, Ursula Watson, Jared Joshi and colleagues, with an educational fredrick from [employer]. Review of Systems Const Reports fatigue, Denies fever(s), Denies headache(s) and Reports weakness ENT Denies dysphagia, Denies dizziness, Denies otalgia, Denies headache(s), Denies odynophagia and Denies sore throat Card Denies chest pain, Reports claudication (over both lower extremities), Denies palpitations and Reports dyspnea on exertion (with minimal exertion/activity) Resp Denies cough, Reports dyspnea on exertion (with minimal exertion/activity) and Denies wheezing GI Denies abdominal pain, Denies constipation, Denies dysphagia, Denies heartburn, Denies diarrhea, Denies nausea, Denies odynophagia and Denies vomiting Denies difficulty voiding, Denies nocturia and Denies dysuria Musc Reports back pain and Reports radiating pain into limb (down into right leg) Neuro Denies dizziness, Denies headache(s) and Reports weakness Endo Reports fatigue and Denies palpitations Sean/Lymph Details: (+) recurrent pain/claudication over her left lower extremity Aller/Immun Denies wheezing Physical exam (Primary Care) Vital Signs: Last Vital Signs Pulse 54 01/29/23 13:22 BP 122/80 01/29/23 13:22 Pulse Ox 92 01/29/23 13:22 Oxygen Delivery Method Room Air 01/29/23 13:22 BMI result Body Mass Index 34.8 Tobacco/Smoking Status: Tobacco use Status Tobacco use date assessed 01/29/23 01/29/23 13:31 Patient Tobacco Use Status Former Tobacco user 01/29/23 13:31 Tobacco use type Cigarette 01/29/23 13:31 e-Cigarette/Vaping Use Never Used 01/29/23 13:31 PHQ-9: PHQ-9 Score PHQ-9: Total score 0 01/29/23 14:19 Depression Screening Interpretation: Negative Thrive Assessment: Date of Thrive Assessment Date Thrive assessed 01/29/23 01/29/23 13:31 Currently or been in a relationship where the following occur: no concerns reported Const General: no acute distress and alert HENMT Ears: TM's normal bilaterally and EAC's normal Throat: Yes posterior oropharynx normal and Yes tonsils normal (no TP congestion noted) Neck Neck: Yes no lymphadenopathy and Yes supple Resp Auscultation: clear to auscultation bilaterally, no rales and no wheezes Cardio Rate: regular rate Rhythm: regular rhythm Heart sounds: Murmur heart sound present diastolic blowing and at the apex and systolic III/ and at the base GI Palpation (GI): Soft to palpation, nontender and No hepatosplenomegaly present Back/Spine/Pelvis Thoracic/Lumbar Spine: lumbar spinal tenderness and straight leg raise positive Extrem General: Yes no clubbing, cyanosis or edema Immunizations pneumoc 20-sonia conj-dip cr(PF) 0.5 mL IM syringe Performing Provider: Jamel Mansfield MD [place] [facility] Administered by: Chely Rose CMA on 01/29/23 14:20 Dose Route Admin Location Dispensed Lot Number Expiration Date NDC Identification Clerk 0.5 mL IM Left Deltoid 0.5 mL [id number] 02/15/24 0283-4681-36 [employer] VIS Given Date VIS Provided VIS Publication Date 01/29/23 Single Vaccine 21 Eligibility Eligibility Date Funding Source Not [facility] Eligible 01/29/23 Private Results Reviewed Results Reviewed: Laboratory Tests 10/01/22 10/13/22 10/13/22 04:25 05:46 05:46 WBC 5.9 Hgb 10.6 L Hct 35.7 L Plt Count 248 Sodium 141 Potassium 4.3 Creatinine 1.34 Estimated GFR 38 Random Glucose 112 Fasting Glucose Hemoglobin A1c % Calcium 9.1 AST 10 ALT 40 H Triglycerides Cholesterol LDL Cholesterol, Calc HDL Cholesterol 25-OH Vitamin D Total TSH Ur Specific [place] Urine Protein Urine Glucose (UA) Urine Blood Microalb/Creat Ratio 01/26/23 01/26/23 01/26/23 10:27 11:27 11:27 WBC 7.0 Hgb 11.6 L Hct 37.8 Plt Count 282 Sodium 141 Potassium 4.1 Creatinine 1.18 Estimated GFR Random Glucose Fasting Glucose 108 H Hemoglobin A1c % 5.6 Calcium 9.8 AST 12 ALT 11 Triglycerides 114 Cholesterol 142 LDL Cholesterol, Calc 92 HDL Cholesterol 28 L 25-OH Vitamin D Total 50.0 TSH 0.33 Ur Specific [place] Urine Protein Urine Glucose (UA) Urine Blood Microalb/Creat Ratio 01/26/23 01/26/23 01/26/23 11:27 11:30 11:30 WBC Hgb Hct Plt Count Sodium Potassium Creatinine Estimated GFR 44 Random Glucose Fasting Glucose Hemoglobin A1c % Calcium AST ALT Triglycerides Cholesterol LDL Cholesterol, Calc HDL Cholesterol 25-OH Vitamin D Total TSH Ur Specific [place] 1.015 Urine Protein Trace Urine Glucose (UA) Negative Urine Blood Negative Microalb/Creat Ratio 93.5 H Assessment and Plan Assessment & Plan (1) COPD (chronic obstructive pulmonary disease): Comment: SHE HAS MILD ASTHMA/COPD. SINCE SHE WAS TREATED FOR PNEUMONIA A FEW MONTHS AGO, SHORTNESS OF BREATH IS MUCH WORSE. SHE IS USING ADVAIR 250-51 INHALATION B.I.D., AND ALSO INCRUSE ELLIPTA 1 INHALATION DAILY. STILL HER SHORTNESS OF BREATH IS WORSE WITH SEEMS TO BE MORE DUE TO CARDIAC ISSUES AND GENERAL DECONDITIONING. Code(s): J44.9 - Chronic obstructive pulmonary disease, unspecified Qualifiers: COPD type: unspecified COPD Qualified Code(s): J44.9 - Chronic obstructive pulmonary disease, unspecified Plan: Stable Continue Advair Diskus 250-50 mcg 1 inhalation BID and ProAir HFA 108 mcg 2 puffs 4 times a day as needed; was started additionally on Incruse Ellipta 62.5 mcg 1 inhalation QD when she was discharged from [facility] a few months ago Follow up with pulmonary as scheduled - sees Dr. Cardona (2) Chronic kidney disease (CKD), stage III (moderate): Code(s): N18.30 - Chronic kidney disease, stage 3 unspecified Qualifiers: Chronic kidney disease stage 3 subtype: stage 3a (GFR 45-59) Qualified Code(s): N18.31 - Chronic kidney disease, stage 3a Plan: Will continue to monitor her GFR and serum creatinine regularly Reportedly developed some MARBELLA while she was admitted to the hospital a few months ago - her Valsartan was discontinued back then (3) Chronic diastolic heart failure: Comment: SHE IS BEING FOLLOWED BY CARDIOLOGY REGULARLY, AND BEING TREATED FOR CHRONIC DIASTOLIC CONGESTIVE HEART FAILURE. I THINK HER CARDIAC FUNCTION HAS DETERIORATED WHICH ACCOUNTS FOR HER INCREASED SHORTNESS OF BREATH. Code(s): I50.32 - Chronic diastolic (congestive) heart failure Plan: Continue Torsemide 40 mg QD Reinforced fluid restriction Follow up with cardiology as scheduled (4) Type 2 diabetes mellitus with diabetic chronic kidney disease: Code(s): E11.22 - Type 2 diabetes mellitus with diabetic chronic kidney disease Qualifiers: Chronic kidney disease stage: stage 3 (moderate) Chronic kidney disease stage 3 subtype: stage 3a (GFR 45-59) Diabetes mellitus jail insulin use: without jail use Qualified Code(s): E11.21 - Type 2 diabetes mellitus with diabetic nephropathy; N18.31 - Chronic kidney disease, stage 3a Plan: HgbA1c was at 5.6% on her labs done a few days ago (in-office HgbA1c was at 5.8% previously) - goal is <7.0% Reinforced diabetic diet Continue Januvia 100 mg QD and Glimepiride 1 mg QD (could not tolerate Metformin / Metformin ER due to diarrhea) It appears that she was switched to Aloglptin 25 mg QD (instead of Januvia) when she was at [facility] (probably due to formulary restrictions) but she was continued on both Januvia and Glimepiride when she was admitted to the hospital so have instructed patient to switch back to Januvia a few months ago Will consider again switching her over to an SGLT2 inhibitor like Farxiga for their cardiac and renal benefits (if appropriate) later on once her current cardiac issues have been resolved Will recheck labs and HgbA1c in 3 months for follow up (5) Valvular heart disease: Code(s): I38 - Endocarditis, valve unspecified Plan: Previous echocardiogram done on 01/14/2021 revealed (+) normal LV size and function, with hyperdynamic EF of >70%; left atrium is severely dilated, with moderate AR and moderate as well as moderate MR and severe MS and mild pulmonary hypertension - these changes appear to be worse compared to previous findings Repeat echocardiogram done on 07/17/2021 revealed that findings are mostly unchanged from previous but the gradient across the mitral valve is slightly less and PA pressures have improved in the gradient across the aortic valve is slightly improved Follow up with cardiology as scheduled - used to see Dr. Ajay Hannah but is now seeing a new chicken handler (Dr. Nance) Will be seeing cardiac ruggiero She reportedly had a normal cardiac cath done at [facility] back in August 2022 She has also been advised that she will be potentially requiring valve replacement or repair of her mitral and aortic valve - patient does not feel she is ready for either yet at this time (6) Benign essential hypertension: Code(s): I10 - Essential (primary) hypertension Plan: Reinforced low-sodium diet - goal is systolic BP of at least 140 to 150 mm or less Continue Metoprolol ER 100 mg QD Valsartan 160 mg once a day ws discontinued while she was in the hospital a few months ago due to MARBELLA (7) PSVT (paroxysmal supraventricular tachycardia): Code(s): I47.1 - Supraventricular tachycardia Plan: Currently controlled on Diltiazem ER Follow-up with cardiology as scheduled (8) PAC (premature atrial contraction): Code(s): I49.1 - Atrial premature depolarization Plan: Has been better controlled on Diltiazem lately - continue Diltiazem ER 240 mg QD Follow-up with cardiology as scheduled (9) Pure hypercholesterolemia: Code(s): E78.00 - Pure hypercholesterolemia, unspecified Plan: Results of her labs done a few days ago reviewed and discussed with patient Reinforced low cholesterol diet Continue Atorvastatin 40 mg daily Will recheck her labs and fasting lipids in a few months for follow up (10) Peripheral vascular disease: Comment: S/P angioplasty of left lower extremity in July 2020 Code(s): I73.9 - Peripheral vascular disease, unspecified Plan: S/P angioplasty although patient did not feel that her surgery helped a lot Was on dual antiplatelet therapy with low dose Aspirin 81 mg QD and Clopidogrel 75 mg QD previously but is now just on Clopidogrel (Aspirin was discontinued due to GI bleed and profound anemia) Follow up with vascular surgery as scheduled (11) Toxic multinodular goiter: Code(s): E05.20 - Thyrotoxicosis with toxic multinodular goiter without thyrotoxic crisis or storm Plan: TFTs were normal on her most recent labs Follow-up with endocrinology as scheduled - FNA Bx done on 06/17/2017 came out benign Ultrasound done last year came back unchanged and recommendation is to just continue with yearly ultrasound for continuing surveillance (12) Anemia: Code(s): D64.9 - Anemia, unspecified Qualifiers: Anemia type: unspecified type Qualified Code(s): D64.9 - Anemia, unspecified Plan: H/H have improved/corrected on her recent labs Was most likely due to GI bleeding related to her previous dual antiplatelet therapy; S/P blood transfusion of 2 units of PRBC in January 2021 and 1 more unit in April 2021; also s/p IV iron in March 2021 Continue Ferrous Sulfate 325 mg BID Follow up with hematology as scheduled (13) Chronic low back pain with right-sided sciatica: Code(s): M54.41 - Lumbago with sciatica, right side; G89.29 - Other chronic pain Qualifiers: Back pain laterality: right Qualified Code(s): M54.41 - Lumbago with sciatica, right side; G89.29 - Other chronic pain Plan: Lumbar spine x-rays done back in April 2022 revealed (+) multilevel lumbar spondylosis and facet arthritis, with no acute changes or fractures noted Reinforced activity and weight-lifting restrictions Will consider referring to pain management if her low back pain continues to be an issue for her (14) Hypomagnesemia: Code(s): E83.42 - Hypomagnesemia Plan: Corrected on her previous labs - will continue to monitor regularly (15) Gout: Code(s): M10.9 - Gout, unspecified Qualifiers: Chronicity: unspecified Gout etiology: unspecified cause Gout site: unspecified site Qualified Code(s): M10.9 - Gout, unspecified Plan: Asymptomatic; her serum uric acid level has increased slightly to 7.6 on her labs done last week Reinforced low purine diet Continue Colcrys 0.6 mg twice a day, Indomethacin 25 mg twice a day with food as needed (16) GERD without esophagitis: Code(s): K21.9 - Gastro-esophageal reflux disease without esophagitis Plan: Dietary restrictions reinforced Continue Lansoprazole 30 mg daily; may take some OTC Famotidine 20 mg PRN for symptomatic relief Follow-up with GI as scheduled (17) Vitamin D deficiency: Code(s): E55.9 - Vitamin D deficiency, unspecified Plan: Continue Vitamin D3 5000 units once a day (18) Anxiety: Code(s): F41.9 - Anxiety disorder, unspecified Plan: States that her Citalopram is helping with her anxiety (19) Depression: Code(s): F32.9 - Major depressive disorder, single episode, unspecified Qualifiers: Active/Remission status: currently active Depression Type: major depressive disorder Major depression episode severity: unspecified Major depression recurrence: recurrent Qualified Code(s): F33.9 - Major depressive disorder, recurrent, unspecified Plan: Continue Citalopram 40 mg QD and Mirtazapine 15 mg Q HS Follow-up with Psychiatry as scheduled - is now seeing a nurse practitioner as her previous psychiatrist retired from active practice (20) Obesity (BMI 30-39.9): Comment: SHE HAS LIMITATION IN DOING ANY EXERCISES BECAUSE OF BACK PAIN , AND PVD . WILL TRY TO RESTRICT CALORIES INTAKE . Code(s): E66.9 - Obesity, unspecified Plan: Reinforced diet; exercise and weight loss are unrealistic in this patient as she is currently experiencing a lot of vascular symptoms and has multiple comorbidities that significantly limits her activity and exercise tolerance Plan Pneumovax-23 booster given today, per previously discussed Follow up in 3 months Orders: Orders Complete Blood Count Auto Diff 3 Months I10 - Essential (primary) hypertension Comprehensive [place]. Panel Fast 3 Months E78.00 - Pure hypercholesterolemia, unspecified Lipid Panel 3 Months E78.00 - Pure hypercholesterolemia, unspecified Vitamin D 25-OH Total 3 Months E55.9 - Vitamin D deficiency, unspecified Microalbumin, Random (w Creat) 3 Months E11.9 - Type 2 diabetes mellitus without complications Pneumococcal 20 Immunization 01/29/23 Z23 - Encounter for immunization Magnesium 3 Months E83.42 - Hypomagnesemia Hemoglobin A1c 3 Months E11.9 - Type 2 diabetes mellitus without complications TSH reflex Free T4 3 Months E78.00 - Pure hypercholesterolemia, unspecified UA CC w/rflx Micro + Cult 3 Months R30.0 - Dysuria Uric Acid 3 Months M10.9 - Gout, unspecified Coding Level of Care Code Est Pt Level 4 (38698) Diagnoses Chronic obstructive pulmonary disease, unspecified COPD type J44.9 COPD type: unspecified COPD Stage 3a chronic kidney disease N18.31 Chronic kidney disease stage 3 subtype: stage 3a (GFR 45-59) Chronic diastolic heart failure I50.32 Type 2 diabetes mellitus with stage 3a chronic kidney disease, without long-term current use of insulin E11.21; N18.31 Chronic kidney disease stage: stage 3 (moderate) Chronic kidney disease stage 3 subtype: stage 3a (GFR 45-59) Diabetes mellitus intermediate accountant insulin use: without jail use Valvular heart disease I38 Benign essential hypertension I10 PSVT (paroxysmal supraventricular tachycardia) I47.1 PAC (premature atrial contraction) I49.1 Pure hypercholesterolemia E78.00 Peripheral vascular disease I73.9 Toxic multinodular goiter E05.20 Anemia, unspecified type D64.9 Anemia type: unspecified type Chronic right-sided low back pain with right-sided sciatica M54.41; G89.29 Back pain laterality: right Hypomagnesemia E83.42 Gout, unspecified cause, unspecified chronicity, unspecified site M10.9 Chronicity: unspecified Gout etiology: unspecified cause Gout site: unspecified site GERD without esophagitis K21.9 Vitamin D deficiency E55.9 Anxiety F41.9 Episode of recurrent major depressive disorder, unspecified depression episode severity F33.9 Active/Remission status: currently active Depression Type: major depressive disorder Major depression episode severity: unspecified Major depression recurrence: recurrent Obesity (BMI 30-39.9) E66.9
== END 2023-01-29 14:25 | disposition home or self-care (01) ==
PROVIDERS: PCP Internal Medicine; Visit Provider Internal Medicine
DX: Z23 Encounter for immunization (principal)
CPT/HCPCS: 90471; 90677; 99214

== ENCOUNTER 2023-02-03 14:10 | Outpatient (AMB) | payer MEDICARE, OTHER, SELFPAY ==
[2023-02-03 14:38] VITALS: BP 104/44; PULSE 54; O2SAT 94; BMI 34.7
--- NOTE | 2023-02-03 14:38 | A.OFFVIS_ITS ---
Intake Vital Signs 02/03/23 14:38 Height 5 ft 2 in Weight 190 lb BMI 34.7 BP 104/44 L Blood Pressure Location Lt brachial Position Sitting Pulse 54 Pulse Source Pulse Oximeter Pulse Oximetry (%) 94 Oxygen Delivery Method Room Air Intake Visit Reasons: Shortness of breath Intake Note: pt is here for follow up and states she is still the same, trouble walking, short of breath still. Taxonomist Required: No Allergies Iodinated Contrast Media [IV DYE, IODINE CONTAINING CONTRAST ] Allergy (Severe, Verified 02/03/23 15:02) HIVE Penicillins [PENICILLINS] Allergy (Severe, Verified 02/03/23 15:02) HIVES Medication List - Last Reconciled 02/03/23 by Schuyler Cardona MD allopurinol 100 mg PO DAILY 90 days atorvastatin (Lipitor) 80 mg PO DAILY cholecalciferol (vitamin D3) 50 mcg PO DAILY 90 days citalopram 30 mg PO DAILY diltiazem HCl ER 240 mg PO DAILY famotidine 20 mg PO BID ferrous sulfate (Feosol) 325 mg PO BID fluticasone propion-salmeterol 250-50 mcg/dose (Advair Diskus) 1 inh inhalation BID glimepiride 1 mg PO DAILY Incruse Ellipta 62.5 mcg/actuation (umeclidinium) 1 inh inhalation DAILY 30 days NS Januvia (sitagliptin phosphate) 100 mg PO DAILY 30 days NS lansoprazole (Prevacid) 30 mg PO DAILY@0630 magnesium 400 mg PO DAILY mecobalamin (vitamin B12) 5,000 mcg PO DAILY melatonin 10 mg PO BEDTIME PRN metoprolol succinate ER 100 mg PO DAILY 90 days mirtazapine 15 mg PO BEDTIME montelukast 10 mg PO DAILY nystatin 1 appl topical TID 10 days potassium chloride ER 40 mEq (2 x 20 mEq) PO DAILY 90 days potassium chloride ER 40 mEq (4 x 10 mEq) PO DAILY 90 days prothrombin time/INR test metr (Coaguchek XS Pro) As directed prothrombin time/INR test metr (Coaguchek XS Pro) As directed torsemide 40 mg PO DAILY trazodone 50 mg PO BEDTIME PRN warfarin Take 1 tablet daily or as instructed orally; HPI Shortness of breath HPI Details 82 YEARS OLD VERY PLEASANT FEMALE IS HER E FOR FOLLOW-UP AFTER A A MONTH. SHE HAS REMAINED STABLE BUT STILL GETS SHORT OF BREATH ON MINIMAL EXERTION. SHE HAS VERY LITTLE COUGH OR WHEEZING. CONTINUES TO USE INCRUSE ELLIPTA 1 INHALATION IN THE MORNING AND ADVAIR 250-50 TWICE A DAY, BUT HAS CUT DOWN TO ALMOST ONCE A DAY . SHE HAS NO COUGH OR WHEEZING. DOES GET MOM MINIMAL SWELLING AROUND THE ANKLES WORD THE EVENING BUT IT GOES AWAY BY THE MORNING. SHE HAS NO FURTHER GI BLEEDING AND HER HEMOGLOBIN HAS STABILIZED. [facility] Medical History Pneumonia Chronic diastolic heart failure CHF (congestive heart failure) Thrush, oral GI bleed Occult blood positive stool Microcytic anemia Valvular heart disease Exertional dyspnea Hemorrhagic cystitis Osteopenia Toxic multinodular goiter Obesity (BMI 30-39.9) Hearing impairment Peripheral vascular disease Obesity (BMI 30-39.9) Depression Anxiety Osteoarthritis of ankle and foot Vitamin D deficiency Allergic rhinitis Anemia GERD without esophagitis Gout Hypomagnesemia Multiple thyroid nodules Pure hypercholesterolemia Benign essential hypertension PSVT (paroxysmal supraventricular tachycardia) PAC (premature atrial contraction) COPD (chronic obstructive pulmonary disease) Chronic kidney disease (CKD), stage III (moderate) Type 2 diabetes mellitus with diabetic chronic kidney disease Sciatica of right side Surgical History History of colonoscopy History of angioplasty of peripheral vessel (~08/13/20) History of biopsy History of neck surgery History of cataract surgery History of bladder surgery History of tonsillectomy and adenoidectomy History of appendectomy History of hysterectomy Family History Father Stroke CVD (cardiovascular disease) Mother CVD (cardiovascular disease) Hypertension CAD (coronary artery disease) Other Mental health disorder Social History Household Members: None Housing: Condominium Do you presently have visiting nurse or other home services: Yes (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- [facility]) Alcohol intake: current Alcohol intake frequency: holidays/special occasions only Alcohol type: beer and hard liquor Patient Tobacco Use Status: Former Tobacco user Quit Date: 1999 Tobacco use type: Cigarette Cigarette Packs Per Day: 2 Cigarettes Per Day: 40.0 Years Smoked: 40 e-Cigarette/Vaping Use: Never Used Second Hand Smoke Exposure: Yes service: No Current occupational status: retired Cognitive needs: Yes (cane) Hearing needs: Yes Vision needs: Yes Review of Systems Const All systems reviewed & are unremarkable except as noted in HPI and below Eyes Reports no additional complaints ENT Reports nasal congestion (Mostly controlled with use of med) Card Denies chest pain, Denies leg edema and Reports dyspnea on exertion (Her shortness of breath on activity is much increase than before) Resp Denies cough, Reports dyspnea on exertion (Her shortness of breath on activity is much increase than before) and Denies wheezing Reports no additional complaints Musc Reports back pain (Mild) and Reports arthralgias (Mild in multiple joints) Skin/Breast Reports system reviewed and no additional complaints, except as documented Neuro Reports no additional complaints Psych Reports anxiety Aller/Immun Denies wheezing Physical Exam Vital Signs: Last Vital Signs Pulse 54 02/03/23 14:38 BP 104/44 L 02/03/23 14:38 Pulse Ox 94 02/03/23 14:38 Oxygen Delivery Method Room Air 02/03/23 14:38 BMI result Body Mass Index 34.7 Const General: comfortable, no acute distress, alert and awake Orientation/consciousness: patient oriented x3 HEENT Head: Yes normal to inspection General nose exam: No nasal polyps present and No nasal discharge present Face and sinus: Yes sinuses nontender Mouth: oropharynx abnormals (She has erythema of the oral mucosa and white spots over the soft palate ) Throat: Yes posterior oropharynx normal Eyes General: appearance normal, both eyes and all related structures Neck Neck: Yes normal visual inspection, Yes no lymphadenopathy, Yes trachea midline and Yes no JVD Thyroid: Thyroid normal Chest Chest palpation & inspection: normal inspection of the chest, normal palpation of entire chest wall and no tenderness Resp Other: Percussion note is resonant. Breath sounds are equal on both sides, slightly distant. No wheezes rhonchi or crepitations are heard. Cardio Palpation: normal PMI Rate: regular rate Rhythm: regular rhythm Heart sounds: no gallops and Murmur heart sound present (Loud systolic murmur at the aortic area as well as over left sternal border) GI Palpation (GI): Soft to palpation, nontender, No hepatosplenomegaly present and no masses Auscultation: normal bowel sounds Back/Spine/Pelvis Thoracic/Lumbar Spine: thoracic and lumbar spine normal to inspection and thoraco-lumbar ROM limited Skin General skin exam: no rashes or lesions noted Neuro General: patient oriented x3 and no focal motor deficits Cranial nerves: Yes CN's II-XII intact bilaterally Extrem General: Yes normal to inspection, Yes no clubbing, cyanosis or edema and Yes no calf tenderness Psych Appearance: grossly normal and well kempt Speech and movement: Normal speech and movement present Assessment & Plan Assessment & Plan (1) COPD (chronic obstructive pulmonary disease): Comment: SHE HAS MILD ASTHMA/COPD. SINCE SHE WAS TREATED FOR PNEUMONIA A FEW MONTHS AGO, SHORTNESS OF BREATH IS MUCH WORSE. SHE IS USING ADVAIR 250-50 1 INHALATION B.I.D.,WHEN STABLE , MAY REDUCE IT TO ONLY ONCE A DAY. INCRUSE ELLIPTA 1 INHALATION DAILY. Code(s): J44.9 - Chronic obstructive pulmonary disease, unspecified Qualifiers: COPD type: unspecified COPD Qualified Code(s): J44.9 - Chronic obstructive pulmonary disease, unspecified (2) Allergic rhinitis: Comment: CHRONIC , GETS WORSE OFF AND ON , TX: MONTELUKAST 10 MG DAILY . DOES NOT HAVE TO USE FLONASE. CLARITIN OR ZYRTEC 10 MG ONCE A DAY P.R.N. Code(s): J30.9 - Allergic rhinitis, unspecified Qualifiers: Allergic rhinitis trigger: unspecified Allergic rhinitis seasonality: unspecified Qualified Code(s): J30.9 - Allergic rhinitis, unspecified (3) Aortic stenosis: Comment: PATIENT DOES HAVE SEVERE AORTIC STENOSIS ON AUSCULTATION Code(s): I35.0 - Nonrheumatic aortic (valve) stenosis (4) Shortness of breath: Comment: DYSPNEA ON EXERTION IS DUE TO COMBINATION OF, AORTIC STENOSIS, MILD CONGESTIVE HEART FAILURE, COPD, AND GENERAL DECONDITIONING. IT IS SLOWLY IMPROVING. Code(s): R06.02 - Shortness of breath Coding Level of Care Code Est Pt Level 3 (61516) Diagnoses Chronic obstructive pulmonary disease, unspecified COPD type J44.9 COPD type: unspecified COPD Allergic rhinitis, unspecified seasonality, unspecified trigger J30.9 Allergic rhinitis trigger: unspecified Allergic rhinitis seasonality: unspecified Aortic stenosis I35.0 Shortness of breath R06.02
== END 2023-02-03 15:04 | disposition home or self-care (01) ==
PROVIDERS: PCP Internal Medicine; Visit Provider Internal Medicine
DX: J44.9 Chronic obstructive pulmonary disease, unspecified (principal); J30.9 Allergic rhinitis, unspecified; I35.0 Nonrheumatic aortic (valve) stenosis; R06.02 Shortness of breath
CPT/HCPCS: 99213

== ENCOUNTER → 2023-02-03 14:10 | Outpatient (BNVA) | payer MEDICARE, OTHER, SELFPAY | PROVIDERS: PCP Internal Medicine; Visit Provider Internal Medicine | DX: J44.9 Chronic obstructive pulmonary disease, unspecified (principal); J30.9 Allergic rhinitis, unspecified; I35.0 Nonrheumatic aortic (valve) stenosis; R06.02 Shortness of breath | CPT/HCPCS: 99212 ==

== ENCOUNTER 2023-05-04 10:54 | Outpatient (REF) | payer MEDICARE, OTHER, SELFPAY ==
[2023-05-04 13:19] LABS: MANUAL DIFF FLAG NO
[2023-05-04 13:34] LABS: Appearance Urine Clear; Color Urine Yellow; Glucose Urine UA Negative (Negative); Leukocyte Esterase Urine Small (1+) (Negative); Nitrite Urine Negative (Negative); Specific Gravity - Urine 1.015 (1.005-1.025); UMIC TRIGGER UACC YES; Urine Blood Negative (Negative); Urine Ketones Negative (Negative); Urine Protein Trace mg/dL (Neg-Trace)
[2023-05-04 13:36] LABS: Basophils Percent Auto 0.4 % (0-2); Eosinophils Absolute Auto 0.4 X10*3/uL (0.0-0.4); Eosinophils Percent Auto 6.1 % (0-4); Hematocrit 37.1 % (37.0-47.0); Hemoglobin 11.6 g/dl (12.0-16.0); Imm Gran Abs Auto 0.04 X10*3/uL (0.00-0.03); Imm Gran Pct Auto 0.6 % (0.0-0.4); Lymphocytes Absolute Auto 0.6 X10*3/uL (1.2-4.9); Lymphocytes Percent Auto 7.9 % (20-40); Mean Corpuscular HGB Conc 31.3 g/dl (31.0-35.0); Mean Corpuscular Hemoglobin 27.2 pg (27.0-33.0); Mean Corpuscular Volume 87.1 fL (80.0-98.0); Mean Platelet Volume 9.3 fL (9.4-12.3); Monocytes Absolute Auto 0.6 X10*3/uL (0.1-1.2); Monocytes Percent Auto 8.4 % (2-11); Neutrophils Absolute Auto 5.5 x10*3/uL (2.0-8.3); Neutrophils Percent Auto 76.6 % (45-73); Platelet Count 282 X10*3/uL (160-400); Red Blood Count 4.26 X10*6/uL (4.20-5.50); White Blood Count 7.2 X10*3/uL (4.8-10.8)
[2023-05-04 13:45] LABS: Estimated Average Glucose 120 mg/dL; Hemoglobin A1c % 5.8 % (<6.0)
[2023-05-04 13:47] LABS: Bacteria Urine None Seen (None Seen); Hyaline Casts Urine 0-2 /LPF (0-2); RBC Urine 0-2 /HPF (0-2); UACC Culture Trigger YES; WBC Urine 0-5 /HPF (0-5)
[2023-05-04 14:08] LABS: Creatinine Urine 71.75 mg/dL; Microalbum/Creatinine Ratio Ur 65.5 ug/mg cr (<30)
[2023-05-04 18:11] LABS: Alanine Aminotransferase 9 U/L (0-31); Albumin Level 3.7 g/dL (3.5-5.0); Alkaline Phosphatase 91 U/L (39-117); Anion Gap 12 (12-20); Aspartate Amino Transferase 13 U/L (5-31); Bilirubin Total 0.5 mg/dL (0.0-1.0); Blood Urea Nitrogen 26 mg/dL (9-16); Calcium 9.4 mg/dL (8.4-10.2); Carbon Dioxide 26 mmol/L (22-29); Chloride 106 mmol/L (96-108); Cholesterol 133 mg/dL (<200); Estimated Glomerular Filt Rate 39; Glucose Fasting 97 mg/dL (60-99); HDL Cholesterol 27 mg/dL (>40); LDL Cholesterol Calculated 85 mg/dL (<100); Magnesium 2.1 mg/dL (1.6-2.6); Potassium 3.8 mmol/L (3.3-5.1); Sodium 140 mmol/L (135-145); Total Protein 7.2 g/dL (6.5-8.0); Triglycerides 108 mg/dL (<150); Uric Acid 8.6 mg/dL (2.4-5.7)
[2023-05-04 18:29] LABS: TSH reflex Free T4 0.27 uIU/mL (0.32-4.0); Vitamin D 25-OH Total 47.7 ng/mL (>30)
[2023-05-04 19:01] LABS: Free T4 (Free Thyroxine) 1.17 ng/dL (0.71-1.85)
== END 2023-05-04 10:55 | disposition home or self-care (01) ==
LOC: HO.HMGCLDS 10:54
PROVIDERS: Absent Provider Internal Medicine Cardiovascular Disease; PCP Internal Medicine; Visit Provider Internal Medicine
DX: E78.00 Pure hypercholesterolemia, unspecified (principal); E55.9 Vitamin D deficiency, unspecified; M10.9 Gout, unspecified; E11.9 Type 2 diabetes mellitus without complications; I11.0 Hypertensive heart disease with heart failure; I50.32 Chronic diastolic (congestive) heart failure; R30.0 Dysuria
CPT/HCPCS: 36415; 80053; 80061; 81001; 82043; 82306; 82570; 83036; 83735; 83880; 84439; 84443; 84550; 85025; 87086

== ENCOUNTER 2023-05-05 12:38 | Outpatient (REF) | payer MEDICARE, OTHER, SELFPAY ==
--- NOTE | ~2023-05-05 | MM_ITS ---
EXAMINATION: MM SCREENING DIGITAL BREAST TOMOSYNTHESIS, BILATERAL CLINICAL INFORMATION: Screening. Asymptomatic. COMPARISON: Mammography: This study is compared with prior exams dating back to 2018. TECHNIQUE: Digital breast tomosynthesis is performed in both the craniocaudal and mediolateral oblique views along with computer-aided detection (CAD). Synthesized 2D images are generated from the tomosynthesis. FINDINGS: There are scattered areas of fibroglandular density (ACR BI-RADS breast composition Category b). There are no significant masses, abnormal calcifications, or other abnormalities. 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 MM/MM tomosynthesis screening BI IMPRESSION: No mammographic evidence of malignancy. ASSESSMENT: BI-RADS BI-RADS 2 - Benign Findings RECOMMENDATION: Routine annual mammography screening. 1 year F/U This examination should not preclude the clinical evaluation of a suspicious palpable abnormality. This patient's information was entered into a reminder system with a target due date for their next mammogram.
== END 2023-05-05 12:39 | disposition home or self-care (01) ==
LOC: HO.MAMMO 12:38
PROVIDERS: PCP Internal Medicine; Visit Provider Internal Medicine
DX: Z12.31 Encounter for screening mammogram for malignant neoplasm of breast (principal)
CPT/HCPCS: 77063; 77067

== ENCOUNTER → 2023-05-05 12:45 | Outpatient (BNV) | payer MEDICARE, OTHER, SELFPAY | PROVIDERS: PCP Internal Medicine; Visit Provider Radiology Diagnostic Radiology | DX: Z12.31 Encounter for screening mammogram for malignant neoplasm of breast (principal) | CPT/HCPCS: 77063; 77067 ==

== ENCOUNTER 2023-05-14 11:32 | Outpatient (AMB) | payer MEDICARE, OTHER, SELFPAY ==
--- NOTE | 2023-05-14 11:32 | A.OFFPC_ITS ---
Vital Signs 05/14/23 11:34 Height 5 ft 2 in Intake Visit Reasons: Cold/flu symptoms [phone] Airplane Tube Builder Required: No Allergies Iodinated Contrast Media [IV DYE, IODINE CONTAINING CONTRAST ] Allergy (Severe, Verified 05/14/23 12:00) HIVE Penicillins [PENICILLINS] Allergy (Severe, Verified 05/14/23 12:00) HIVES Medication List - Last Reconciled 05/14/23 by Jamel Mansfield MD allopurinol 100 mg PO DAILY 90 days atorvastatin (Lipitor) 80 mg PO DAILY budesonide-formoterol 160-4.5 mcg/actuation (Symbicort) 2 puffs inhalation BID cholecalciferol (vitamin D3) 50 mcg PO DAILY 90 days citalopram 30 mg PO DAILY diltiazem HCl ER 240 mg PO DAILY famotidine 20 mg PO BID ferrous sulfate (Feosol) 325 mg PO BID fluticasone propion-salmeterol 250-50 mcg/dose (Advair Diskus) 1 inh inhalation BID glimepiride 1 mg PO DAILY Incruse Ellipta 62.5 mcg/actuation (umeclidinium) 1 inh inhalation DAILY 30 days NS Januvia (sitagliptin phosphate) 100 mg PO DAILY 30 days NS lansoprazole (Prevacid) 30 mg PO DAILY@0630 magnesium 400 mg PO DAILY mecobalamin (vitamin B12) 5,000 mcg PO DAILY melatonin 10 mg PO BEDTIME PRN metoprolol succinate ER 100 mg PO DAILY 90 days mirtazapine 15 mg PO BEDTIME montelukast 10 mg PO DAILY nystatin 1 appl topical TID 10 days potassium chloride ER 40 mEq (2 x 20 mEq) PO DAILY 90 days potassium chloride ER 40 mEq (4 x 10 mEq) PO DAILY 90 days prothrombin time/INR test metr (Coaguchek XS Pro) As directed prothrombin time/INR test metr (Coaguchek XS Pro) As directed torsemide 40 mg PO DAILY trazodone 50 mg PO BEDTIME PRN warfarin Take 1 tablet daily or as instructed orally; Tobacco use date assessed: 01/29/23 Fall risk assessment: No Falls in past year Last assessed Fall Risk: 05/14/23 Dental Screening Dental Screen Date: 05/14/23 Did you have a dental visit in the last 12 months?: Yes Did you have a dental problem in the last 6 months where you did not have access to dental care?: No Was dental information given to patient?: Patient has dentist HPI Cold/flu symptoms [phone] HPI Details Patient's follow-up visit / consultation today is done over the phone - this is a Telehealth visit Patient's current medications have been reviewed and verified with patient and / or caregiver / proxy and have been updated accordingly in the medication list Patient states that she currently feels very weak and she's had a sore throat and runny nose for the past 2 days Relates (+) nausea and vomiting and that she had watery diarrhea all day long yesterday and that she is finally able to drink something today without throwing back up States that she still has not really eaten much as she is afraid it will cause her to start throwing up again She denies any fever or headaches; reports feeling slightly dizzy at times but thinks that this is because she has not eaten or drank much in the past few days She denies any chest pains, no increased shortness of breath Has not had any abdominal pains lately but her stomach feels queasy States that her diarrhea appears to have slowed down today [facility] Medical History Pneumonia Chronic diastolic heart failure CHF (congestive heart failure) Thrush, oral GI bleed Occult blood positive stool Microcytic anemia Valvular heart disease Exertional dyspnea Hemorrhagic cystitis Osteopenia Toxic multinodular goiter Obesity (BMI 30-39.9) Hearing impairment Peripheral vascular disease Obesity (BMI 30-39.9) Depression Anxiety Osteoarthritis of ankle and foot Vitamin D deficiency Allergic rhinitis Anemia GERD without esophagitis Gout Hypomagnesemia Multiple thyroid nodules Pure hypercholesterolemia Benign essential hypertension PSVT (paroxysmal supraventricular tachycardia) PAC (premature atrial contraction) COPD (chronic obstructive pulmonary disease) Chronic kidney disease (CKD), stage III (moderate) Type 2 diabetes mellitus with diabetic chronic kidney disease Sciatica of right side Surgical History History of colonoscopy History of angioplasty of peripheral vessel (~08/13/20) History of biopsy History of neck surgery History of cataract surgery History of bladder surgery History of tonsillectomy and adenoidectomy History of appendectomy History of hysterectomy Family History Father Stroke CVD (cardiovascular disease) Mother CVD (cardiovascular disease) Hypertension CAD (coronary artery disease) Other Mental health disorder Social History Household Members: None Housing: Condominium Do you presently have visiting nurse or other home services: Yes (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- [facility]) Alcohol intake: current Alcohol intake frequency: holidays/special occasions only Alcohol type: beer and hard liquor Patient Tobacco Use Status: Former Tobacco user Quit Date: 1999 Tobacco use type: Cigarette Cigarette Packs Per Day: 2 Cigarettes Per Day: 40.0 Years Smoked: 40 e-Cigarette/Vaping Use: Never Used Second Hand Smoke Exposure: Yes service: No Current occupational status: retired Cognitive needs: Yes (cane) Hearing needs: Yes Vision needs: Yes Questionnaire Thrive Questionnaire Date Thrive assessed: 01/29/23 ABEL-7 AMB Questionnaire ABEL-7 Date ABEL - 7 assessed: 01/29/23 Source: Developed by Drs. Steven Hebert, Ursula Watson, Jared Joshi and colleagues, with an educational fredrick from [employer]. Review of Systems Const Reports fatigue, Denies fever(s), Denies headache(s) and Reports weakness ENT Denies dysphagia, Reports dizziness (occasionally), Denies otalgia, Denies headache(s), Denies nasal congestion, Denies odynophagia, Denies sinus pain and Reports sore throat (mild) Card Denies chest pain, Reports claudication (over both lower extremities), Denies palpitations and Reports dyspnea on exertion (with minimal exertion/activity) Resp Denies cough, Reports dyspnea on exertion (with minimal exertion/activity) and Denies wheezing GI Denies abdominal pain, Denies hematochezia, Denies constipation, Denies dysphagia, Denies heartburn, Reports diarrhea, Reports nausea, Denies odynophagia and Reports vomiting Denies difficulty voiding, Denies nocturia and Denies dysuria Musc Reports back pain and Reports radiating pain into limb (down into right leg) Skin/Breast Denies rash Neuro Reports dizziness (occasionally), Denies headache(s) and Reports weakness Endo Reports fatigue and Denies palpitations Sean/Lymph Details: (+) recurrent pain/claudication over her left lower extremity Aller/Immun Denies wheezing Physical exam (Primary Care) Vital Signs: Physical examination is not performed as visit / consultation today is done over the phone - Telehealth visit All physical findings indicated here, if present, are as per patient's and / or caregivers / proxy's report Tobacco/Smoking Status: Tobacco use Status Tobacco use date assessed 01/29/23 05/14/23 11:36 Patient Tobacco Use Status Former Tobacco user 05/14/23 11:36 Tobacco use type Cigarette 05/14/23 11:36 e-Cigarette/Vaping Use Never Used 05/14/23 11:36 Thrive Assessment: Date of Thrive Assessment Date Thrive assessed 01/29/23 05/14/23 11:36 Telehealth Telehealth Location of provider rendering services: practice address Location of patient: address on file Patient Identification confirmed using: Name, : Yes Telehealth method: voice only (landline ) Patient verbally consented to treatment: Yes Patient verbally consented to billing insurance company: Yes Patient informed of any privacy concerns related to visit: Yes Minutes spent on Phone/Video with Pt.: 17 Results Reviewed Results Reviewed: Laboratory Tests 05/04/23 11:16 WBC 7.2 Hgb 11.6 L Hct 37.1 Plt Count 282 Sodium 140 Potassium 3.8 Creatinine 1.29 Estimated GFR 39 Fasting Glucose 97 Hemoglobin A1c % 5.8 Uric Acid 8.6 H Calcium 9.4 Magnesium 2.1 AST 13 ALT 9 Triglycerides 108 Cholesterol 133 LDL Cholesterol, Calc 85 HDL Cholesterol 27 L 25-OH Vitamin D Total 47.7 TSH 0.27 L Free T4 1.17 Ur Specific [place] 1.015 Urine Protein Trace Urine Glucose (UA) Negative Urine Blood Negative Urine Nitrite Negative Microalb/Creat Ratio 65.5 H Assessment and Plan Assessment & Plan (1) Diarrhea: Code(s): R19.7 - Diarrhea, unspecified Qualifiers: Diarrhea type: unspecified type Qualified Code(s): R19.7 - Diarrhea, unspecified Plan: Will send patient for some labs [facility] for further evaluation Is advised that with her comorbidities, she should get some labs done to at least reassess her renal function Have also advised patient to do a home COVID test to check and make sure that she does not have COVID at present as COVID can also manifest as GI symptoms primarily Encouraged patient to increase her oral fluids but have advised her that if her symptoms recur and/or get worse and she feels worse, she is to go to the ER [facility] for further evaluation Plan Follow up in 3 months Patient is reminded to get her follow up labs done BEFORE her next appt Orders: Orders Complete Blood Count Auto Diff 05/15/23 N18.30 - Chronic kidney disease, stage 3 unspecified, R19.7 - Diarrhea, unspecified Lipid Panel 3 Months E78.00 - Pure hypercholesterolemia, unspecified Hemoglobin A1c 3 Months E11.9 - Type 2 diabetes mellitus without complications TSH reflex Free T4 3 Months E78.00 - Pure hypercholesterolemia, unspecified Comprehensive Met. Panel 05/15/23 N18.30 - Chronic kidney disease, stage 3 unspecified, R19.7 - Diarrhea, unspecified Complete Blood Count Auto Diff 3 Months I10 - Essential (primary) hypertension Comprehensive [place]. Panel Fast 3 Months E78.00 - Pure hypercholesterolemia, unspecified Microalbumin, Random (w Creat) 3 Months E11.9 - Type 2 diabetes mellitus without complications UA CC w/rflx Micro + Cult 3 Months R30.0 - Dysuria Vitamin D 25-OH Total 3 Months E55.9 - Vitamin D deficiency, unspecified Coding Level of Care Code Tele Est Pt Level 3 (38187) Diagnoses Diarrhea, unspecified type R19.7 Diarrhea type: unspecified type
== END 2023-05-14 12:10 | disposition home or self-care (01) ==
LOC: HO.HMGH 11:32
PROVIDERS: PCP Internal Medicine; Visit Provider Internal Medicine
DX: R19.7 Diarrhea, unspecified (principal)
CPT/HCPCS: 99442

== ENCOUNTER 2023-05-15 10:21 | Outpatient (REF) | payer MEDICARE, OTHER, SELFPAY ==
[2023-05-15 11:06] LABS: MANUAL DIFF FLAG NO
[2023-05-15 11:16] LABS: Basophils Percent Auto 0.3 % (0-2); Eosinophils Absolute Auto 0.3 X10*3/uL (0.0-0.4); Eosinophils Percent Auto 3.2 % (0-4); Hemoglobin 13.4 g/dl (12.0-16.0); Imm Gran Abs Auto 0.03 X10*3/uL (0.00-0.03); Imm Gran Pct Auto 0.3 % (0.0-0.4); Lymphocytes Absolute Auto 0.5 X10*3/uL (1.2-4.9); Lymphocytes Percent Auto 5.5 % (20-40); Mean Corpuscular HGB Conc 31.2 g/dl (31.0-35.0); Mean Corpuscular Hemoglobin 26.3 pg (27.0-33.0); Mean Corpuscular Volume 84.3 fL (80.0-98.0); Monocytes Absolute Auto 0.8 X10*3/uL (0.1-1.2); Monocytes Percent Auto 7.9 % (2-11); Neutrophils Absolute Auto 8.1 x10*3/uL (2.0-8.3); Neutrophils Percent Auto 82.8 % (45-73); Platelet Count 275 X10*3/uL (160-400); Red Cell Distribution Width 15.8 % (11.0-16.0); White Blood Count 9.8 X10*3/uL (4.8-10.8)
[2023-05-15 11:48] LABS: Alanine Aminotransferase 16 U/L (0-31); Albumin Level 3.7 g/dL (3.5-5.0); Alkaline Phosphatase 77 U/L (39-117); Anion Gap 16 (12-20); Aspartate Amino Transferase 19 U/L (5-31); Bilirubin Total 0.4 mg/dL (0.0-1.0); Blood Urea Nitrogen 28 mg/dL (9-16); Calcium 9.7 mg/dL (8.4-10.2); Carbon Dioxide 26 mmol/L (22-29); Chloride 101 mmol/L (96-108); Estimated Glomerular Filt Rate 26; Glucose Random 192 mg/dL (60-115); Potassium 3.6 mmol/L (3.3-5.1); Sodium 139 mmol/L (135-145); Total Protein 7.4 g/dL (6.5-8.0)
== END 2023-05-15 10:22 | disposition home or self-care (01) ==
LOC: HO.HMGCLDS 10:21
PROVIDERS: PCP Internal Medicine; Visit Provider Internal Medicine
DX: N18.30 Chronic kidney disease, stage 3 unspecified (principal); R19.7 Diarrhea, unspecified
CPT/HCPCS: 36415; 80053; 85025

== ENCOUNTER 2023-06-03 13:40 | Outpatient (AMB) | payer MEDICARE, OTHER, SELFPAY ==
[2023-06-03 13:47] VITALS: BP 102/60; PULSE 52; O2SAT 93; BMI 34.2
--- NOTE | 2023-06-03 13:47 | A.OFFVIS_ITS ---
Intake Vital Signs 06/03/23 13:47 Height 5 ft 2 in Weight 187 lb BMI 34.2 BP 102/60 Blood Pressure Location Lt brachial Position Sitting Pulse 52 Pulse Source Pulse Oximeter Pulse Oximetry (%) 93 Oxygen Delivery Method Room Air Intake Visit Reasons: Shortness of breath Intake Note: pt is here for follow up , she is in a-fib and 2 malfunctioning valves with stenosis, not a surgical candidate, and today she is staing that her shortness of breath is worse, when walking into the office, o2 was at 90 and came up after a few minutes to 93. mostly short with activities. symbicort is not being covered, wixela, or breo Steam Powerplant Supervisor Required: No Allergies Iodinated Contrast Media [IV DYE, IODINE CONTAINING CONTRAST ] Allergy (Severe, Verified 06/03/23 13:54) HIVE Penicillins [PENICILLINS] Allergy (Severe, Verified 06/03/23 13:54) HIVES Medication List - Last Reviewed 06/03/23 by ARPIT Diana allopurinol 100 mg PO DAILY 90 days atorvastatin (Lipitor) 80 mg PO DAILY budesonide-formoterol 160-4.5 mcg/actuation (Symbicort) 2 puffs inhalation BID cholecalciferol (vitamin D3) 50 mcg PO DAILY 90 days citalopram 30 mg PO DAILY diltiazem HCl ER 240 mg PO DAILY famotidine 20 mg PO BID ferrous sulfate (Feosol) 325 mg PO BID glimepiride 1 mg PO DAILY Incruse Ellipta 62.5 mcg/actuation (umeclidinium) 1 inh inhalation DAILY 30 days NS Januvia (sitagliptin phosphate) 100 mg PO DAILY 30 days NS lansoprazole (Prevacid) 30 mg PO DAILY@0630 magnesium 400 mg PO DAILY mecobalamin (vitamin B12) 5,000 mcg PO DAILY melatonin 10 mg PO BEDTIME PRN metoprolol succinate ER 100 mg PO DAILY 90 days mirtazapine 15 mg PO BEDTIME montelukast 10 mg PO DAILY nystatin 1 appl topical TID 10 days potassium chloride ER 40 mEq (2 x 20 mEq) PO DAILY 90 days potassium chloride ER 40 mEq (4 x 10 mEq) PO DAILY 90 days prothrombin time/INR test metr (Coaguchek XS Pro) As directed prothrombin time/INR test metr (Coaguchek XS Pro) As directed torsemide 40 mg PO DAILY trazodone 50 mg PO BEDTIME PRN warfarin Take 1 tablet daily or as instructed orally; Do you need a note to return to daycare/school/sports/work: No HPI Shortness of breath HPI Details SUKHDEEP IS 82 YEARS OLD VERY PLEASANT FEMALE WHO IS BEING FOLLOWED FOR CHRONIC OBSTRUCTIVE PULMONARY DISEASE/ ALLERGIC RHINITIS. SHE CONTINUES TO USE HER MEDICATION REGULARLY, AND IN SPITE OF THAT SHE IS STILL GETTING INCREASED SHORTNESS OF BREATH ON EXERTION. SHE DENIES ANY CHEST PAIN ON WALKING. SHE HAS HAD NO ACUTE RESPIRATORY INFECTION. SHE DOES HAVE VALVULAR DISEASE , INCLUDING AORTIC STENOSIS AND MITRAL WELL DYSFUNCTION, BUT DOES NOT SEEM TO BE IN CONGESTIVE HEART FAILURE, WALKED INTO THE OFFICE AND O2 SAT WAS 90%, IT GOES UP TO NORMAL LEVEL WITHIN A FEW MINUTES. [facility] Medical History Pneumonia Chronic diastolic heart failure CHF (congestive heart failure) Thrush, oral GI bleed Occult blood positive stool Microcytic anemia Valvular heart disease Exertional dyspnea Hemorrhagic cystitis Osteopenia Toxic multinodular goiter Obesity (BMI 30-39.9) Hearing impairment Peripheral vascular disease Obesity (BMI 30-39.9) Depression Anxiety Osteoarthritis of ankle and foot Vitamin D deficiency Allergic rhinitis Anemia GERD without esophagitis Gout Hypomagnesemia Multiple thyroid nodules Pure hypercholesterolemia Benign essential hypertension PSVT (paroxysmal supraventricular tachycardia) PAC (premature atrial contraction) COPD (chronic obstructive pulmonary disease) Chronic kidney disease (CKD), stage III (moderate) Type 2 diabetes mellitus with diabetic chronic kidney disease Sciatica of right side Surgical History History of colonoscopy History of angioplasty of peripheral vessel (~08/13/20) History of biopsy History of neck surgery History of cataract surgery History of bladder surgery History of tonsillectomy and adenoidectomy History of appendectomy History of hysterectomy Family History Father Stroke CVD (cardiovascular disease) Mother CVD (cardiovascular disease) Hypertension CAD (coronary artery disease) Other Mental health disorder Social History Household Members: None Housing: Condominium Do you presently have visiting nurse or other home services: Yes (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[employer]) Alcohol intake: current Alcohol intake frequency: holidays/special occasions only Alcohol type: beer and hard liquor Patient Tobacco Use Status: Former Tobacco user Quit Date: 1999 Tobacco use type: Cigarette Cigarette Packs Per Day: 2 Cigarettes Per Day: 40.0 Years Smoked: 40 e-Cigarette/Vaping Use: Never Used Second Hand Smoke Exposure: Yes service: No Current occupational status: retired Cognitive needs: Yes (cane) Hearing needs: Yes Vision needs: Yes Review of Systems Const All systems reviewed & are unremarkable except as noted in HPI and below Eyes Reports no additional complaints ENT Reports nasal congestion (Mostly controlled with use of med) Card Denies chest pain, Denies leg edema and Reports dyspnea on exertion (Her shortness of breath on activity is much increase than before) Resp Denies cough, Reports dyspnea on exertion (Her shortness of breath on activity is much increase than before) and Denies wheezing Reports no additional complaints Musc Reports back pain (Mild) and Reports arthralgias (Mild in multiple joints) Skin/Breast Reports system reviewed and no additional complaints, except as documented Neuro Reports no additional complaints Psych Reports anxiety Aller/Immun Denies wheezing Physical Exam Vital Signs: Last Vital Signs Pulse 52 06/03/23 13:47 BP 102/60 06/03/23 13:47 Pulse Ox 93 06/03/23 13:47 Oxygen Delivery Method Room Air 06/03/23 13:47 BMI result Body Mass Index 34.2 Const General: comfortable, no acute distress, alert and awake Orientation/consciousness: patient oriented x3 HEENT Head: Yes normal to inspection General nose exam: No nasal polyps present and No nasal discharge present Face and sinus: Yes sinuses nontender Mouth: oropharynx abnormals (She has erythema of the oral mucosa and white spots over the soft palate ) Throat: Yes posterior oropharynx normal Eyes General: appearance normal, both eyes and all related structures Neck Neck: Yes normal visual inspection, Yes no lymphadenopathy, Yes trachea midline and Yes no JVD Thyroid: Thyroid normal Chest Chest palpation & inspection: normal inspection of the chest, normal palpation of entire chest wall and no tenderness Resp Other: Percussion note is resonant. Breath sounds are equal on both sides, slightly distant. No wheezes rhonchi or crepitations are heard. Cardio Palpation: normal PMI Rate: regular rate Rhythm: regular rhythm Heart sounds: no gallops and Murmur heart sound present (Loud systolic murmur at the aortic area as well as over left sternal border) GI Palpation (GI): Soft to palpation, nontender, No hepatosplenomegaly present and no masses Auscultation: normal bowel sounds Back/Spine/Pelvis Thoracic/Lumbar Spine: thoracic and lumbar spine normal to inspection and thoraco-lumbar ROM limited Skin General skin exam: no rashes or lesions noted Neuro General: patient oriented x3 and no focal motor deficits Cranial nerves: Yes CN's II-XII intact bilaterally Extrem General: Yes normal to inspection, Yes no clubbing, cyanosis or edema and Yes no calf tenderness Psych Appearance: grossly normal and well kempt Speech and movement: Normal speech and movement present Results Reviewed Results Reviewed: ECHCARDIOGRAM LVEF 60-65 % RVSP NORMAL Aortic Valve There is moderate calcification of the aortic valve. There is moderate aortic valve stenosis. The peak aortic velocity is 2.48 m/s with a calculated peak gradient of 25 mmHg. The mean gradient is 14 mmHg. The aortic valve area is 1.29 cm2. There is mild aortic valve regurgitation. Stroke volume index 26ml/m2. Mitral Valve There is severe mitral annular calcification. There is mild mitral valve regurgitation. There is severe mitral valve stenosis. Mean gradient across the mitral valve 13mmHg at 75/min. LAST COMPLETE PFT IN 2011 , MILD COPD SPIROMETRY LAST YEAR , ONLY MILD COPD Assessment & Plan Assessment & Plan (1) COPD (chronic obstructive pulmonary disease): Comment: SHE HAS MILD ASTHMA/COPD. SHE HAS BEEN USING SYMBICORT 2 PUFFS B.I.D. AND CLAIMS THAT THIS WAS HELPING HER BETTER THAN THE ADVAIR. BUT NOW THE INSURANCE WILL NOT BE COVERING SYMBICORT. SHE WOULD NEED AN ALTERNATIVE TO THIS MEDICINE. Code(s): J44.9 - Chronic obstructive pulmonary disease, unspecified Qualifiers: COPD type: unspecified COPD Qualified Code(s): J44.9 - Chronic obstructive pulmonary disease, unspecified Plan: PLAN TO DO PULMONARY FUNCTION TEST AN UP TO DATE INFORMATION. WILL REPLACE SYMBICORT WITH BREO-200 . 1 INHALATION DAILY AND CONTINUE INCRUSE ELLIPTA 1 INHALATION DAILY. (2) Allergic rhinitis: Comment: CHRONIC , GETS WORSE OFF AND ON , TX: MONTELUKAST 10 MG DAILY . DOES NOT HAVE TO USE FLONASE. CLARITIN OR ZYRTEC 10 MG ONCE A DAY P.R.N. Code(s): J30.9 - Allergic rhinitis, unspecified Qualifiers: Allergic rhinitis seasonality: unspecified Allergic rhinitis trigger: unspecified Qualified Code(s): J30.9 - Allergic rhinitis, unspecified Plan: CONTINUE MONTELUKAST 10 MG DAILY (3) Shortness of breath: Comment: DYSPNEA ON EXERTION IS DUE TO COMBINATION OF, AORTIC STENOSIS, MILD CONGESTIVE HEART FAILURE, COPD, AND GENERAL DECONDITIONING. IT IS DEFINITELY OUT OF PROPORTION TO THE DEGREE OF COPD. WILL CHECK WITH PULMONARY FUNCTION TEST AND ESPECIALLY FOR DIFFUSION CAPACITY. Code(s): R06.02 - Shortness of breath Plan: SHE NEEDS TO BE MONITORED FOR O2 LEVEL. WHEN SHE WALKED IN THE OFFICE THE IT WAS 90% AND AFTER SITTING DOWN IT COMES TO 93-94% QUICKLY. SO SHE DOES NOT NEED O2 AT THIS TIME . I THINK INCREASED SHORTNESS OF BREATH IS SECONDARY TO VALVULAR HER DISEASE/ CONGESTIVE HEART FAILURE. BUT WILL DO PULMONARY FUNCTION , ESPECIALLY TO CHECK FOR DLCO . Orders: Orders PFT pulmonary function test Today J44.9 - Chronic obstructive pulmonary disease, unspecified, R06.02 - Shortness of breath Medications: New fluticasone furoate-vilanterol 200-25 mcg/dose (Breo Ellipta) 1 inh inhalation DAILY 60 ea 5RF COPD 30 days Coding Level of Care Code Est Pt Level 4 (66958) Diagnoses Chronic obstructive pulmonary disease, unspecified COPD type J44.9 COPD type: unspecified COPD Allergic rhinitis, unspecified seasonality, unspecified trigger J30.9 Allergic rhinitis seasonality: unspecified Allergic rhinitis trigger: unspecified Shortness of breath R06.02
== END 2023-06-03 14:11 | disposition home or self-care (01) ==
PROVIDERS: PCP Internal Medicine; Visit Provider Internal Medicine
DX: J44.9 Chronic obstructive pulmonary disease, unspecified (principal); J30.9 Allergic rhinitis, unspecified; R06.02 Shortness of breath
CPT/HCPCS: 99214

== ENCOUNTER → 2023-06-03 13:40 | Outpatient (BNVA) | payer MEDICARE, OTHER, SELFPAY | PROVIDERS: PCP Internal Medicine; Visit Provider Internal Medicine | DX: J44.9 Chronic obstructive pulmonary disease, unspecified (principal); J30.9 Allergic rhinitis, unspecified; R06.02 Shortness of breath | CPT/HCPCS: 99212 ==

== ENCOUNTER 2023-06-19 13:00 | Outpatient (REF) | payer MEDICARE, OTHER, SELFPAY ==
--- NOTE | 2023-06-19 13:37 | PFT_ITS ---
Indication: COPD Spirometry [FEV1 to FVC 68%; FEV1 1.43 L; FVC 2.1 L. There was a significant response to bronchodilators noted. Maximum voluntary ventilation 69% predicted] Lung Volumes [Total lung capacity 79% predicted; expiratory reserve volume 26% predicted] Diffusion Capacity [DLCO 50% predicted] Comparisons [None] Interpretation [There has an obstructive ventilatory defect consistent with COPD. There was a significant response to bronchodilators noted. Mild decrease in maximum voluntary ventilation secondary to likely deconditioning. Lung volumes demonstrate a mild restrictive ventilatory defect with significant decrease in the expiratory reserve volume likely secondary to an elevated BMI. Although underlying parenchymal lung conditions can not be ruled out. The patient does have a moderate diffusion impairment. Clinical correlation warranted.] MTDD
== END 2023-06-19 13:01 | disposition home or self-care (01) ==
LOC: HO.RESP 13:00
PROVIDERS: PCP Internal Medicine; Visit Provider Internal Medicine
DX: J44.9 Chronic obstructive pulmonary disease, unspecified (principal); R06.02 Shortness of breath
CPT/HCPCS: 94010; 94640; 94729

== ENCOUNTER → 2023-06-19 13:37 | Outpatient (BNV) | payer MEDICARE, OTHER, SELFPAY | PROVIDERS: PCP Internal Medicine; Visit Provider Hospitalist | DX: J44.9 Chronic obstructive pulmonary disease, unspecified (principal) | CPT/HCPCS: 94060; 94727; 94729 ==

== ENCOUNTER 2023-07-13 14:06 | Outpatient (AMB) | payer MEDICARE, OTHER, SELFPAY ==
[2023-07-13 14:27] VITALS: BP 112/78; PULSE 49; O2SAT 92; BMI 34.9
--- NOTE | 2023-07-13 14:27 | A.OFFVIS_ITS ---
Intake Vital Signs 07/13/23 14:27 Height 5 ft 2 in Weight 191 lb 0.8 oz BMI 34.9 BP 112/78 Blood Pressure Location Lt brachial Position Sitting Pulse 49 L Pulse Source Pulse Oximeter Pulse Oximetry (%) 92 Oxygen Delivery Method Room Air Intake Visit Reasons: Shortness of breath Intake Note: pt is here for follow up of pft and feels good today. Psychology Associate Required: No Allergies Iodinated Contrast Media [IV DYE, IODINE CONTAINING CONTRAST ] Allergy (Severe, Verified 07/13/23 14:30) HIVE Penicillins [PENICILLINS] Allergy (Severe, Verified 07/13/23 14:30) HIVES [facility] Medical History Pneumonia Chronic diastolic heart failure CHF (congestive heart failure) Thrush, oral GI bleed Occult blood positive stool Microcytic anemia Valvular heart disease Exertional dyspnea Hemorrhagic cystitis Osteopenia Toxic multinodular goiter Obesity (BMI 30-39.9) Hearing impairment Peripheral vascular disease Obesity (BMI 30-39.9) Depression Anxiety Osteoarthritis of ankle and foot Vitamin D deficiency Allergic rhinitis Anemia GERD without esophagitis Gout Hypomagnesemia Multiple thyroid nodules Pure hypercholesterolemia Benign essential hypertension PSVT (paroxysmal supraventricular tachycardia) PAC (premature atrial contraction) COPD (chronic obstructive pulmonary disease) Chronic kidney disease (CKD), stage III (moderate) Type 2 diabetes mellitus with diabetic chronic kidney disease Sciatica of right side Surgical History History of colonoscopy History of angioplasty of peripheral vessel (~08/13/20) History of biopsy History of neck surgery History of cataract surgery History of bladder surgery History of tonsillectomy and adenoidectomy History of appendectomy History of hysterectomy Family History Father Stroke CVD (cardiovascular disease) Mother CVD (cardiovascular disease) Hypertension CAD (coronary artery disease) Other Mental health disorder Social History Household Members: None Housing: Condominium Do you presently have visiting nurse or other home services: Yes (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
--- NOTE | 2023-07-13 14:44 | A.OFFVIS_ITS ---
Intake Vital Signs 07/13/23 14:27 Height 5 ft 2 in Weight 191 lb 0.8 oz BMI 34.9 BP 112/78 Blood Pressure Location Lt brachial Position Sitting Pulse 49 L Pulse Source Pulse Oximeter Pulse Oximetry (%) 92 Oxygen Delivery Method Room Air Intake Visit Reasons: Shortness of breath Allergies Iodinated Contrast Media [IV DYE, IODINE CONTAINING CONTRAST ] Allergy (Severe, Verified 07/13/23 14:50) HIVE Penicillins [PENICILLINS] Allergy (Severe, Verified 07/13/23 14:50) HIVES Medication List - Last Reconciled 07/13/23 by Schuyler Cardona MD allopurinol 100 mg PO DAILY 90 days atorvastatin (Lipitor) 80 mg PO DAILY cholecalciferol (vitamin D3) 50 mcg PO DAILY 90 days citalopram 30 mg PO DAILY diltiazem HCl ER 240 mg PO DAILY famotidine 20 mg PO BID ferrous sulfate (Feosol) 325 mg PO BID fluticasone furoate-vilanterol 200-25 mcg/dose (Breo Ellipta) 1 inh inhalation DAILY 30 days glimepiride 1 mg PO DAILY Incruse Ellipta 62.5 mcg/actuation (umeclidinium) 1 inh inhalation DAILY 30 days NS Januvia (sitagliptin phosphate) 100 mg PO DAILY 30 days NS lansoprazole (Prevacid) 30 mg PO DAILY@0630 magnesium 400 mg PO DAILY mecobalamin (vitamin B12) 5,000 mcg PO DAILY melatonin 10 mg PO BEDTIME PRN metoprolol succinate ER 100 mg PO DAILY 90 days mirtazapine 15 mg PO BEDTIME montelukast 10 mg PO DAILY nystatin 1 appl topical TID 10 days potassium chloride ER 40 mEq (2 x 20 mEq) PO DAILY 90 days potassium chloride ER 40 mEq (4 x 10 mEq) PO DAILY 90 days prothrombin time/INR test metr (Coaguchek XS Pro) As directed prothrombin time/INR test metr (Coaguchek XS Pro) As directed torsemide 40 mg PO DAILY trazodone 50 mg PO BEDTIME PRN warfarin Take 1 tablet daily or as instructed orally; Do you need a note to return to daycare/school/sports/work: No HPI Shortness of breath HPI Details SUKHDEEP, IS HERE FOR A SHORT TERM FOLLOW-UP FOR HER COPD WHICH WAS QUITE SYMPTOMATIC. PULMONARY FUNCTION TEST SHOWS SEVERE OBSTRUCTIVE AIRWAY DISORDER BUT WITH GOOD RESPONSE TO THERAPY. SHE IS ON COMBINATION OF BREO ONCE A DAY AND INCRUSE ELLIPTA ONCE A DAY, AND HAS NOT REQUIRED TO USE ANY RESCUE INHALER. SHE FEELS BETTER THAN LAST TIME. SHE DOES GET SHORT OF BREATH ON STANDING AND WALKING BUT NOT MUCH BEFORE. SHE DENIES , WHEEZING SHE DOES HAVE SOME COUGH AND IS ABLE TO EXPECTORATES MUCUS MORE EASILY. [facility], LAT[facility] Medical History Pneumonia Chronic diastolic heart failure CHF (congestive heart failure) Thrush, oral GI bleed Occult blood positive stool Microcytic anemia Valvular heart disease Exertional dyspnea Hemorrhagic cystitis Osteopenia Toxic multinodular goiter Obesity (BMI 30-39.9) Hearing impairment Peripheral vascular disease Obesity (BMI 30-39.9) Depression Anxiety Osteoarthritis of ankle and foot Vitamin D deficiency Allergic rhinitis Anemia GERD without esophagitis Gout Hypomagnesemia Multiple thyroid nodules Pure hypercholesterolemia Benign essential hypertension PSVT (paroxysmal supraventricular tachycardia) PAC (premature atrial contraction) COPD (chronic obstructive pulmonary disease) Chronic kidney disease (CKD), stage III (moderate) Type 2 diabetes mellitus with diabetic chronic kidney disease Sciatica of right side Surgical History History of colonoscopy History of angioplasty of peripheral vessel (~08/13/20) History of biopsy History of neck surgery History of cataract surgery History of bladder surgery History of tonsillectomy and adenoidectomy History of appendectomy History of hysterectomy Family History Father Stroke CVD (cardiovascular disease) Mother CVD (cardiovascular disease) Hypertension CAD (coronary artery disease) Other Mental health disorder Social History Household Members: None Housing: Condominium Do you presently have visiting nurse or other home services: Yes (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[employer]) Alcohol intake: current Alcohol intake frequency: holidays/special occasions only Alcohol type: beer and hard liquor Patient Tobacco Use Status: Former Tobacco user Quit Date: 1999 Tobacco use type: Cigarette Cigarette Packs Per Day: 2 Cigarettes Per Day: 40.0 Years Smoked: 40 e-Cigarette/Vaping Use: Never Used Second Hand Smoke Exposure: Yes service: No Current occupational status: retired Cognitive needs: Yes (cane) Hearing needs: Yes Vision needs: Yes Review of Systems Const All systems reviewed & are unremarkable except as noted in HPI and below Eyes Reports no additional complaints ENT Reports nasal congestion (Mostly controlled with use of med) Card Denies chest pain, Denies leg edema and Reports dyspnea on exertion (Her violette rtness of breath on activity is much increase than before) Resp Denies cough, Reports dyspnea on exertion (Her shortness of breath on activity is much increase than before) and Denies wheezing Reports no additional complaints Musc Reports back pain (Mild) and Reports arthralgias (Mild in multiple joints) Skin/Breast Reports system reviewed and no additional complaints, except as documented Neuro Reports no additional complaints Psych Reports anxiety Aller/Immun Denies wheezing Physical Exam Vital Signs: Last Vital Signs Pulse 49 L 07/13/23 14:27 BP 112/78 07/13/23 14:27 Pulse Ox 92 07/13/23 14:27 Oxygen Delivery Method Room Air 07/13/23 14:27 BMI result Body Mass Index 34.9 Const General: comfortable, no acute distress, alert and awake Orientation/consciousness: patient oriented x3 HEENT Head: Yes normal to inspection General nose exam: No nasal polyps present and No nasal discharge present Face and sinus: Yes sinuses nontender Mouth: oropharynx abnormals (She has erythema of the oral mucosa and white spots over the soft palate ) Throat: Yes posterior oropharynx normal Eyes General: appearance normal, both eyes and all related structures Neck Neck: Yes normal visual inspection, Yes no lymphadenopathy, Yes trachea midline and Yes no JVD Thyroid: Thyroid normal Chest Chest palpation & inspection: normal inspection of the chest, normal palpation of entire chest wall and no tenderness Resp Other: Percussion note is resonant. Breath sounds are equal on both sides, slightly distant. No wheezes rhonchi or crepitations are heard. Cardio Palpation: normal PMI Rate: regular rate Rhythm: regular rhythm Heart sounds: no gallops and Murmur heart sound present (Loud systolic murmur at the aortic area as well as over left sternal border) GI Palpation (GI): Soft to palpation, nontender, No hepatosplenomegaly present and no masses Auscultation: normal bowel sounds Back/Spine/Pelvis Thoracic/Lumbar Spine: thoracic and lumbar spine normal to inspection and thoraco-lumbar ROM limited Skin General skin exam: no rashes or lesions noted Neuro General: patient oriented x3 and no focal motor deficits Cranial nerves: Yes CN's II-XII intact bilaterally Extrem General: Yes normal to inspection, Yes no clubbing, cyanosis or edema and Yes no calf tenderness Psych Appearance: grossly normal and well kempt Speech and movement: Normal speech and movement present Results Reviewed Results Reviewed: I reviewed the results of pulmonary function test with her FVC 81% FEV1 56% fef 25-75= 29% There is significant response to bronchodilator therapy Assessment & Plan Assessment & Plan (1) COPD (chronic obstructive pulmonary disease): Comment: SHE HAS MODERATELY SEVERE ASTHMA/COPD. WITH THE CURRENT COMBINATION SHE IS FEELING BETTER. SHE HAS NOT REQUIRING ANY NEED FOR RESCUE INHALER. Code(s): J44.9 - Chronic obstructive pulmonary disease, unspecified Qualifiers: COPD type: unspecified COPD Qualified Code(s): J44.9 - Chronic obstructive pulmonary disease, unspecified Plan: BREO 200-251 INHALATION DAILY. INCRUSE ELLIPTA 1 INHALATION DAILY (2) Allergic rhinitis: Comment: CHRONIC , GETS WORSE OFF AND ON , Code(s): J30.9 - Allergic rhinitis, unspecified Qualifiers: Allergic rhinitis trigger: unspecified Allergic rhinitis seasonality: unspecified Qualified Code(s): J30.9 - Allergic rhinitis, unspecified Plan: TX: MONTELUKAST 10 MG DAILY . DOES NOT HAVE TO USE FLONASE. CLARITIN OR ZYRTEC 10 MG ONCE A DAY P.R.N. (3) Obesity (BMI 30-39.9): Comment: SHE IS MODERATELY OBESE, AND IS NOT ABLE TO LOSE MUCH WEIGHT. Code(s): E66.9 - Obesity, unspecified Plan: SHE IS ADVISED TO KEEP ON DOING DEEP BREATHING EXERCISES, (4) Shortness of breath: Comment: DYSPNEA ON EXERTION IS DUE TO COMBINATION OF, AORTIC STENOSIS, MILD CONGESTIVE HEART FAILURE, COPD, AND GENERAL DECONDITIONING. WITH THE CURRENT RESPIRATORY MEDS IT IS SOMEWHAT IMPROVED. Code(s): R06.02 - Shortness of breath Plan: ABOVE Quality Reporting (2019) Adult ([facility] 138/07/08/68) Body Mass Index: 34.9 Coding Level of Care Code Est Pt Level 3 (58318) Diagnoses Chronic obstructive pulmonary disease, unspecified COPD type J44.9 COPD type: unspecified COPD Allergic rhinitis, unspecified seasonality, unspecified trigger J30.9 Allergic rhinitis trigger: unspecified Allergic rhinitis seasonality: unspecified Obesity (BMI 30-39.9) E66.9 Shortness of breath R06.02
[2023-07-13 15:00] VITALS: BMI 34.9
--- NOTE | 2023-07-13 15:43 | A.OFFVIS_ITS ---
Intake Vital Signs 07/13/23 14:27 07/13/23 15:00 Height 5 ft 2 in Weight 191 lb 0.8 oz BMI 34.9 34.9 BP 112/78 Blood Pressure Location Lt brachial Position Sitting Pulse 49 L Pulse Source Pulse Oximeter Pulse Oximetry (%) 92 Oxygen Delivery Method Room Air Intake Visit Reasons: Shortness of breath Allergies Iodinated Contrast Media [IV DYE, IODINE CONTAINING CONTRAST ] Allergy (Severe, Verified 07/13/23 14:50) HIVE Penicillins [PENICILLINS] Allergy (Severe, Verified 07/13/23 14:50) HIVES Medication List - Last Reconciled 07/13/23 by Schuyler Cardona MD allopurinol 100 mg PO DAILY 90 days atorvastatin (Lipitor) 80 mg PO DAILY cholecalciferol (vitamin D3) 50 mcg PO DAILY 90 days citalopram 30 mg PO DAILY diltiazem HCl ER 240 mg PO DAILY famotidine 20 mg PO BID ferrous sulfate (Feosol) 325 mg PO BID fluticasone furoate-vilanterol 200-25 mcg/dose (Breo Ellipta) 1 inh inhalation DAILY 30 days glimepiride 1 mg PO DAILY Incruse Ellipta 62.5 mcg/actuation (umeclidinium) 1 inh inhalation DAILY 30 days NS Januvia (sitagliptin phosphate) 100 mg PO DAILY 30 days NS lansoprazole (Prevacid) 30 mg PO DAILY@0630 magnesium 400 mg PO DAILY mecobalamin (vitamin B12) 5,000 mcg PO DAILY melatonin 10 mg PO BEDTIME PRN metoprolol succinate ER 100 mg PO DAILY 90 days mirtazapine 15 mg PO BEDTIME montelukast 10 mg PO DAILY nystatin 1 appl topical TID 10 days potassium chloride ER 40 mEq (2 x 20 mEq) PO DAILY 90 days potassium chloride ER 40 mEq (4 x 10 mEq) PO DAILY 90 days prothrombin time/INR test metr (Coaguchek XS Pro) As directed prothrombin time/INR test metr (Coaguchek XS Pro) As directed torsemide 40 mg PO DAILY trazodone 50 mg PO BEDTIME PRN warfarin Take 1 tablet daily or as instructed orally; [facility] Medical History Pneumonia Chronic diastolic heart failure CHF (congestive heart failure) Thrush, oral GI bleed Occult blood positive stool Microcytic anemia Valvular heart disease Exertional dyspnea Hemorrhagic cystitis Osteopenia Toxic multinodular goiter Obesity (BMI 30-39.9) Hearing impairment Peripheral vascular disease Obesity (BMI 30-39.9) Depression Anxiety Osteoarthritis of ankle and foot Vitamin D deficiency Allergic rhinitis Anemia GERD without esophagitis Gout Hypomagnesemia Multiple thyroid nodules Pure hypercholesterolemia Benign essential hypertension PSVT (paroxysmal supraventricular tachycardia) PAC (premature atrial contraction) COPD (chronic obstructive pulmonary disease) Chronic kidney disease (CKD), stage III (moderate) Type 2 diabetes mellitus with diabetic chronic kidney disease Sciatica of right side Surgical History History of colonoscopy History of angioplasty of peripheral vessel (~08/13/20) History of biopsy History of neck surgery History of cataract surgery History of bladder surgery History of tonsillectomy and adenoidectomy History of appendectomy History of hysterectomy Family History Father Stroke CVD (cardiovascular disease) Mother CVD (cardiovascular disease) Hypertension CAD (coronary artery disease) Other Mental health disorder Social History Household Members: None Housing: Condominium Do you presently have visiting nurse or other home services: Yes (cloth opener hand once per week- [facility]) Alcohol intake: current Alcohol intake frequency: holidays/special occasions only Alcohol type: beer and hard liquor Patient Tobacco Use Status: Former Tobacco user Quit Date: 1999 Tobacco use type: Cigarette Cigarette Packs Per Day: 2 Cigarettes Per Day: 40.0 Years Smoked: 40 e-Cigarette/Vaping Use: Never Used Second Hand Smoke Exposure: Yes service: No Current occupational status: retired Cognitive needs: Yes (cane) Hearing needs: Yes Vision needs: Yes Physical Exam Vital Signs: Last Vital Signs Pulse 49 L 07/13/23 14:27 BP 112/78 07/13/23 14:27 Pulse Ox 92 07/13/23 14:27 Oxygen Delivery Method Room Air 07/13/23 14:27 BMI result Body Mass Index 34.9 Assessment & Plan Assessment & Plan (1) COPD (chronic obstructive pulmonary disease): Comment: SHE HAS MODERATELY SEVERE ASTHMA/COPD. WITH THE CURRENT COMBINATION SHE IS FEELING BETTER. SHE HAS NOT REQUIRING ANY NEED FOR RESCUE INHALER. Code(s): J44.9 - Chronic obstructive pulmonary disease, unspecified Qualifiers: COPD type: unspecified COPD Qualified Code(s): J44.9 - Chronic obstructive pulmonary disease, unspecified (2) Allergic rhinitis: Comment: CHRONIC , GETS WORSE OFF AND ON , Code(s): J30.9 - Allergic rhinitis, unspecified Qualifiers: Allergic rhinitis trigger: unspecified Allergic rhinitis seasonality: unspecified Qualified Code(s): J30.9 - Allergic rhinitis, unspecified (3) Obesity (BMI 30-39.9): Comment: SHE IS MODERATELY OBESE, AND IS NOT ABLE TO LOSE MUCH WEIGHT. Code(s): E66.9 - Obesity, unspecified (4) Shortness of breath: Comment: DYSPNEA ON EXERTION IS DUE TO COMBINATION OF, AORTIC STENOSIS, MILD CONGESTIVE HEART FAILURE, COPD, AND GENERAL DECONDITIONING. WITH THE CURRENT RESPIRATORY MEDS IT IS SOMEWHAT IMPROVED. Code(s): R06.02 - Shortness of breath Quality Reporting (2019) Adult ([facility] 138/07/08/68) Body Mass Index: 34.9 Coding Diagnoses Chronic obstructive pulmonary disease, unspecified COPD type J44.9 COPD type: unspecified COPD Allergic rhinitis, unspecified seasonality, unspecified trigger J30.9 Allergic rhinitis trigger: unspecified Allergic rhinitis seasonality: unspecified Obesity (BMI 30-39.9) E66.9 Shortness of breath R06.02
--- NOTE | 2023-07-13 15:45 | A.OFFVIS_ITS ---
Intake Vital Signs 07/13/23 14:27 07/13/23 15:00 Height 5 ft 2 in Weight 191 lb 0.8 oz BMI 34.9 34.9 BP 112/78 Blood Pressure Location Lt brachial Position Sitting Pulse 49 L Pulse Source Pulse Oximeter Pulse Oximetry (%) 92 Oxygen Delivery Method Room Air Intake Visit Reasons: Shortness of breath Allergies Iodinated Contrast Media [IV DYE, IODINE CONTAINING CONTRAST ] Allergy (Severe, Verified 07/13/23 14:50) HIVE Penicillins [PENICILLINS] Allergy (Severe, Verified 07/13/23 14:50) HIVES Medication List - Last Reconciled 07/13/23 by Schuyler Cardona MD allopurinol 100 mg PO DAILY 90 days atorvastatin (Lipitor) 80 mg PO DAILY cholecalciferol (vitamin D3) 50 mcg PO DAILY 90 days citalopram 30 mg PO DAILY diltiazem HCl ER 240 mg PO DAILY famotidine 20 mg PO BID ferrous sulfate (Feosol) 325 mg PO BID fluticasone furoate-vilanterol 200-25 mcg/dose (Breo Ellipta) 1 inh inhalation DAILY 30 days glimepiride 1 mg PO DAILY Incruse Ellipta 62.5 mcg/actuation (umeclidinium) 1 inh inhalation DAILY 30 days NS Januvia (sitagliptin phosphate) 100 mg PO DAILY 30 days NS lansoprazole (Prevacid) 30 mg PO DAILY@0630 magnesium 400 mg PO DAILY mecobalamin (vitamin B12) 5,000 mcg PO DAILY melatonin 10 mg PO BEDTIME PRN metoprolol succinate ER 100 mg PO DAILY 90 days mirtazapine 15 mg PO BEDTIME montelukast 10 mg PO DAILY nystatin 1 appl topical TID 10 days potassium chloride ER 40 mEq (2 x 20 mEq) PO DAILY 90 days potassium chloride ER 40 mEq (4 x 10 mEq) PO DAILY 90 days prothrombin time/INR test metr (Coaguchek XS Pro) As directed prothrombin time/INR test metr (Coaguchek XS Pro) As directed torsemide 40 mg PO DAILY trazodone 50 mg PO BEDTIME PRN warfarin Take 1 tablet daily or as instructed orally; [facility] Medical History Pneumonia Chronic diastolic heart failure CHF (congestive heart failure) Thrush, oral GI bleed Occult blood positive stool Microcytic anemia Valvular heart disease Exertional dyspnea Hemorrhagic cystitis Osteopenia Toxic multinodular goiter Obesity (BMI 30-39.9) Hearing impairment Peripheral vascular disease Obesity (BMI 30-39.9) Depression Anxiety Osteoarthritis of ankle and foot Vitamin D deficiency Allergic rhinitis Anemia GERD without esophagitis Gout Hypomagnesemia Multiple thyroid nodules Pure hypercholesterolemia Benign essential hypertension PSVT (paroxysmal supraventricular tachycardia) PAC (premature atrial contraction) COPD (chronic obstructive pulmonary disease) Chronic kidney disease (CKD), stage III (moderate) Type 2 diabetes mellitus with diabetic chronic kidney disease Sciatica of right side Surgical History History of colonoscopy History of angioplasty of peripheral vessel (~08/13/20) History of biopsy History of neck surgery History of cataract surgery History of bladder surgery History of tonsillectomy and adenoidectomy History of appendectomy History of hysterectomy Family History Father Stroke CVD (cardiovascular disease) Mother CVD (cardiovascular disease) Hypertension CAD (coronary artery disease) Other Mental health disorder Social History Household Members: None Housing: Condominium Do you presently have visiting nurse or other home services: Yes (marine machinist once per week- [facility]) Alcohol intake: current Alcohol intake frequency: holidays/special occasions only Alcohol type: beer and hard liquor Patient Tobacco Use Status: Former Tobacco user Quit Date: 1999 Tobacco use type: Cigarette Cigarette Packs Per Day: 2 Cigarettes Per Day: 40.0 Years Smoked: 40 e-Cigarette/Vaping Use: Never Used Second Hand Smoke Exposure: Yes service: No Current occupational status: retired Cognitive needs: Yes (cane) Hearing needs: Yes Vision needs: Yes Physical Exam Vital Signs: Last Vital Signs Pulse 49 L 07/13/23 14:27 BP 112/78 07/13/23 14:27 Pulse Ox 92 07/13/23 14:27 Oxygen Delivery Method Room Air 07/13/23 14:27 BMI result Body Mass Index 34.9 Assessment & Plan Assessment & Plan (1) COPD (chronic obstructive pulmonary disease): Comment: SHE HAS MODERATELY SEVERE ASTHMA/COPD. WITH THE CURRENT COMBINATION SHE IS FEELING BETTER. SHE HAS NOT REQUIRING ANY NEED FOR RESCUE INHALER. Code(s): J44.9 - Chronic obstructive pulmonary disease, unspecified Qualifiers: COPD type: unspecified COPD Qualified Code(s): J44.9 - Chronic obstructive pulmonary disease, unspecified (2) Allergic rhinitis: Comment: CHRONIC , GETS WORSE OFF AND ON , Code(s): J30.9 - Allergic rhinitis, unspecified Qualifiers: Allergic rhinitis trigger: unspecified Allergic rhinitis seasonality: unspecified Qualified Code(s): J30.9 - Allergic rhinitis, unspecified Plan: Continue montelukast 10 mg daily (3) Obesity (BMI 30-39.9): Comment: SHE IS MODERATELY OBESE, AND IS NOT ABLE TO LOSE MUCH WEIGHT. Code(s): E66.9 - Obesity, unspecified Plan: will try to limit calories intake (4) Shortness of breath: Comment: DYSPNEA ON EXERTION IS DUE TO COMBINATION OF, AORTIC STENOSIS, MILD CONGESTIVE HEART FAILURE, COPD, AND GENERAL DECONDITIONING. WITH THE CURRENT RESPIRATORY MEDS IT IS SOMEWHAT IMPROVED. Code(s): R06.02 - Shortness of breath Plan: Continue present regimen, including Breo-201 inhalation daily and Incruse Ellipta 1 inhalation daily. Quality Reporting (2019) Adult ([facility] 138//69) Body Mass Index: 34.9 Coding Diagnoses Chronic obstructive pulmonary disease, unspecified COPD type J44.9 COPD type: unspecified COPD Allergic rhinitis, unspecified seasonality, unspecified trigger J30.9 Allergic rhinitis trigger: unspecified Allergic rhinitis seasonality: unspecified Obesity (BMI 30-39.9) E66.9 Shortness of breath R06.02
--- NOTE | 2023-07-13 15:50 | MHC.OFFVIS ---
Intake Vital Signs 07/13/23 14:27 07/13/23 15:00 Height 5 ft 2 in Weight 191 lb 0.8 oz BMI 34.9 34.9 BP 112/78 Blood Pressure Location Lt brachial Position Sitting Pulse 49 L Pulse Source Pulse Oximeter Pulse Oximetry (%) 92 Oxygen Delivery Method Room Air Intake Visit Reasons: Shortness of breath Allergies Iodinated Contrast Media [IV DYE, IODINE CONTAINING CONTRAST ] Allergy (Severe, Verified 07/13/23 14:50) HIVE Penicillins [PENICILLINS] Allergy (Severe, Verified 07/13/23 14:50) HIVES Medication List - Last Reconciled 07/13/23 by Schuyler Cardona MD allopurinol 100 mg PO DAILY 90 days atorvastatin (Lipitor) 80 mg PO DAILY cholecalciferol (vitamin D3) 50 mcg PO DAILY 90 days citalopram 30 mg PO DAILY diltiazem HCl ER 240 mg PO DAILY famotidine 20 mg PO BID ferrous sulfate (Feosol) 325 mg PO BID fluticasone furoate-vilanterol 200-25 mcg/dose (Breo Ellipta) 1 inh inhalation DAILY 30 days glimepiride 1 mg PO DAILY Incruse Ellipta 62.5 mcg/actuation (umeclidinium) 1 inh inhalation DAILY 30 days NS Januvia (sitagliptin phosphate) 100 mg PO DAILY 30 days NS lansoprazole (Prevacid) 30 mg PO DAILY@0630 magnesium 400 mg PO DAILY mecobalamin (vitamin B12) 5,000 mcg PO DAILY melatonin 10 mg PO BEDTIME PRN metoprolol succinate ER 100 mg PO DAILY 90 days mirtazapine 15 mg PO BEDTIME montelukast 10 mg PO DAILY nystatin 1 appl topical TID 10 days potassium chloride ER 40 mEq (2 x 20 mEq) PO DAILY 90 days potassium chloride ER 40 mEq (4 x 10 mEq) PO DAILY 90 days prothrombin time/INR test metr (Coaguchek XS Pro) As directed prothrombin time/INR test metr (Coaguchek XS Pro) As directed torsemide 40 mg PO DAILY trazodone 50 mg PO BEDTIME PRN warfarin Take 1 tablet daily or as instructed orally; [facility] Medical History Pneumonia Chronic diastolic heart failure CHF (congestive heart failure) Thrush, oral GI bleed Occult blood positive stool Microcytic anemia Valvular heart disease Exertional dyspnea Hemorrhagic cystitis Osteopenia Toxic multinodular goiter Obesity (BMI 30-39.9) Hearing impairment Peripheral vascular disease Obesity (BMI 30-39.9) Depression Anxiety Osteoarthritis of ankle and foot Vitamin D deficiency Allergic rhinitis Anemia GERD without esophagitis Gout Hypomagnesemia Multiple thyroid nodules Pure hypercholesterolemia Benign essential hypertension PSVT (paroxysmal supraventricular tachycardia) PAC (premature atrial contraction) COPD (chronic obstructive pulmonary disease) Chronic kidney disease (CKD), stage III (moderate) Type 2 diabetes mellitus with diabetic chronic kidney disease Sciatica of right side Surgical History History of colonoscopy History of angioplasty of peripheral vessel (~08/13/20) History of biopsy History of neck surgery History of cataract surgery History of bladder surgery History of tonsillectomy and adenoidectomy History of appendectomy History of hysterectomy Family History Father Stroke CVD (cardiovascular disease) Mother CVD (cardiovascular disease) Hypertension CAD (coronary artery disease) Other Mental health disorder Social History Household Members: None Housing: Condominium Do you presently have visiting nurse or other home services: Yes (plate shear operator once per week- [facility]) Alcohol intake: current Alcohol intake frequency: holidays/special occasions only Alcohol type: beer and hard liquor Patient Tobacco Use Status: Former Tobacco user Quit Date: 1999 Tobacco use type: Cigarette Cigarette Packs Per Day: 2 Cigarettes Per Day: 40.0 Years Smoked: 40 e-Cigarette/Vaping Use: Never Used Second Hand Smoke Exposure: Yes service: No Current occupational status: retired Cognitive needs: Yes (cane) Hearing needs: Yes Vision needs: Yes Physical Exam Vital Signs: Last Vital Signs Pulse 49 L 07/13/23 14:27 BP 112/78 07/13/23 14:27 Pulse Ox 92 07/13/23 14:27 Oxygen Delivery Method Room Air 07/13/23 14:27 BMI result Body Mass Index 34.9 Assessment & Plan Assessment & Plan (1) COPD (chronic obstructive pulmonary disease): Comment: SHE HAS MODERATELY SEVERE ASTHMA/COPD. WITH THE CURRENT COMBINATION SHE IS FEELING BETTER. SHE HAS NOT REQUIRING ANY NEED FOR RESCUE INHALER. Code(s): J44.9 - Chronic obstructive pulmonary disease, unspecified Qualifiers: COPD type: unspecified COPD Qualified Code(s): J44.9 - Chronic obstructive pulmonary disease, unspecified Plan: Continue Incruse Ellipta 1 inhalation daily Breo-201 inhalation daily (2) Allergic rhinitis: Comment: CHRONIC , GETS WORSE OFF AND ON , Code(s): J30.9 - Allergic rhinitis, unspecified Qualifiers: Allergic rhinitis trigger: unspecified Allergic rhinitis seasonality: unspecified Qualified Code(s): J30.9 - Allergic rhinitis, unspecified Plan: Continue to use montelukast 10 mg daily (3) Obesity (BMI 30-39.9): Comment: SHE IS MODERATELY OBESE, AND IS NOT ABLE TO LOSE MUCH WEIGHT. Code(s): E66.9 - Obesity, unspecified Plan: Patient is aware of being overweight but she is not able to do any exercise. She will continue to watch her diet (4) Shortness of breath: Comment: DYSPNEA ON EXERTION IS DUE TO COMBINATION OF, AORTIC STENOSIS, MILD CONGESTIVE HEART FAILURE, COPD, AND GENERAL DECONDITIONING. WITH THE CURRENT RESPIRATORY MEDS IT IS SOMEWHAT IMPROVED. Code(s): R06.02 - Shortness of breath Plan: Continue the present inhalers and also do deep breathing exercises 3 times a day Quality Reporting (2019) Adult ([facility] 138/07/08/68) Body Mass Index: 34.9 Coding Level of Care Code Est Pt Level 3 (80816) Diagnoses Chronic obstructive pulmonary disease, unspecified COPD type J44.9 COPD type: unspecified COPD Allergic rhinitis, unspecified seasonality, unspecified trigger J30.9 Allergic rhinitis trigger: unspecified Allergic rhinitis seasonality: unspecified Obesity (BMI 30-39.9) E66.9 Shortness of breath R06.02
[2023-07-13 15:53] VITALS: BMI 34.9
== END 2023-07-13 14:51 | disposition home or self-care (01) ==
PROVIDERS: PCP Internal Medicine; Visit Provider Internal Medicine
DX: J44.9 Chronic obstructive pulmonary disease, unspecified (principal); J30.9 Allergic rhinitis, unspecified; E66.9 Obesity, unspecified
CPT/HCPCS: 99213

== ENCOUNTER → 2023-07-13 14:06 | Outpatient (BNVA) | payer MEDICARE, OTHER, SELFPAY | PROVIDERS: PCP Internal Medicine; Visit Provider Internal Medicine | DX: J44.9 Chronic obstructive pulmonary disease, unspecified (principal); J30.9 Allergic rhinitis, unspecified; R06.02 Shortness of breath; E66.9 Obesity, unspecified; Z68.34 Body mass index [BMI] 34.0-34.9, adult | CPT/HCPCS: 99212 ==

== ENCOUNTER 2023-07-19 13:37 | Outpatient (REF) | payer MEDICARE, OTHER, SELFPAY ==
[2023-07-19 16:30] LABS: Anion Gap 12 (12-20); Blood Urea Nitrogen 26 mg/dL (9-16); Calcium 10.2 mg/dL (8.4-10.2); Carbon Dioxide 28 mmol/L (22-29); Chloride 104 mmol/L (96-108); Estimated Glomerular Filt Rate 36; Glucose Random 120 mg/dL (60-115); Potassium 3.8 mmol/L (3.3-5.1); Sodium 140 mmol/L (135-145)
[2023-07-22 21:34] LABS: NT-proBNP 3598 pg/mL (<450)
== END 2023-07-19 13:38 | disposition home or self-care (01) ==
LOC: HO.HMGCLDS 13:37
PROVIDERS: PCP Internal Medicine; Visit Provider Internal Medicine Cardiovascular Disease
DX: I50.32 Chronic diastolic (congestive) heart failure (principal)
CPT/HCPCS: 36415; 80048; 83880

== ENCOUNTER 2023-07-31 13:28 | Outpatient (AMB) | payer MEDICARE, OTHER, SELFPAY ==
[2023-07-31 13:35] VITALS: BP 112/76; PULSE 57; TEMP 36.5; O2SAT 91; BMI 34.9
--- NOTE | 2023-07-31 13:35 | MHC.OFFWIV ---
Intake Vital Signs 07/31/23 13:35 Height 5 ft 2 in Weight 191 lb BMI 34.9 BP 112/76 Blood Pressure Location Lt brachial Position Sitting Pulse 57 Pulse Source Pulse Oximeter Temp 97.7 F Temp Source Oral Pulse Oximetry (%) 91 L Oxygen Delivery Method Room Air Intake Visit Reasons: EP ?Infection on LT wrist Intake Note: pt is here for c/o left wrst infection due to cat bite over4 days ago Patient Tobacco Use Status: Former Tobacco user Quit Date: 1999 Allergies Iodinated Contrast Media [IV DYE, IODINE CONTAINING CONTRAST ] Allergy (Severe, Verified 07/31/23 13:38) HIVE Penicillins [PENICILLINS] Allergy (Severe, Verified 07/31/23 13:38) HIVES Do you need a note to return to daycare/school/sports/work: No HPI HPI Comments History of Present Illness Details 82-year-old female who presents for a cat bite. Patient was bit by her cat 4 days prior was doing well at home and then noticed some redness over her wrist. Denies any fevers chills pain with wrist movement. Endorses some mild swelling. [facility] Medical History Pneumonia Chronic diastolic heart failure CHF (congestive heart failure) Thrush, oral GI bleed Occult blood positive stool Microcytic anemia Valvular heart disease Exertional dyspnea Hemorrhagic cystitis Osteopenia Toxic multinodular goiter Obesity (BMI 30-39.9) Hearing impairment Peripheral vascular disease Obesity (BMI 30-39.9) Depression Anxiety Osteoarthritis of ankle and foot Vitamin D deficiency Allergic rhinitis Anemia GERD without esophagitis Gout Hypomagnesemia Multiple thyroid nodules Pure hypercholesterolemia Benign essential hypertension PSVT (paroxysmal supraventricular tachycardia) PAC (premature atrial contraction) COPD (chronic obstructive pulmonary disease) Chronic kidney disease (CKD), stage III (moderate) Type 2 diabetes mellitus with diabetic chronic kidney disease Sciatica of right side Surgical History History of colonoscopy History of angioplasty of peripheral vessel (~08/13/20) History of biopsy History of neck surgery History of cataract surgery History of bladder surgery History of tonsillectomy and adenoidectomy History of appendectomy History of hysterectomy Family History Father Stroke CVD (cardiovascular disease) Mother CVD (cardiovascular disease) Hypertension CAD (coronary artery disease) Other Mental health disorder Social History Household Members: None Housing: Condominium Do you presently have visiting nurse or other home services: Yes (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 qa system specialist once per week- [facility]) Alcohol intake: current Alcohol intake frequency: holidays/special occasions only Alcohol type: beer and hard liquor Patient Tobacco Use Status: Former Tobacco user Quit Date: 1999 Tobacco use type: Cigarette Cigarette Packs Per Day: 2 Cigarettes Per Day: 40.0 Years Smoked: 40 e-Cigarette/Vaping Use: Never Used Second Hand Smoke Exposure: Yes service: No Current occupational status: retired Cognitive needs: Yes (cane) Hearing needs: Yes Vision needs: Yes Physical Exam Vital Signs: Last Vital Signs Temp 97.7 F 07/31/23 13:35 Pulse 57 07/31/23 13:35 BP 112/76 07/31/23 13:35 Pulse Ox 91 L 07/31/23 13:35 Oxygen Delivery Method Room Air 07/31/23 13:35 BMI result Body Mass Index 34.9 Const General: cooperative, healthy appearing, no acute distress and alert Orientation/consciousness: patient oriented x3 Limitations: no limitations HEENT Head: Yes normal to inspection Ears: hearing grossly normal bilaterally General nose exam: Normal external nose present Resp Effort & Inspection: normal respiratory effort and able to speak in complete sentences Cardio Rate: regular rate Skin Other: Area of erythema surrounding puncture wound to the right wrist. Mildly warm to the touch no pain with wrist movements no pus or purulence General skin exam: no rashes or lesions noted Neuro General: patient oriented x3 Extrem General: Yes normal to inspection Assessment & Plan Assessment & Plan (1) Animal bite: Code(s): T14.8XXA - Other injury of unspecified body region, initial encounter Plan: VSS. Area of erythema surrounding the puncture wound on the right wrist approximately 2 in in diameter. Mild warmth to the touch. The area was outlined to in initialed with date. Patient has complicated medical history as well as significant medications and allergies to penicillins. Will cover with doxycycline and metronidazole. Did warn patient of potential interaction with metronidazole and warfarin patient checks her own INRs will check them twice weekly now we will also monitor for signs of bleeding. Patient given strict return precautions to return to the ER for fever worsening swelling or spreading of the redness pain in the joint or with movement. Tetanus updated Orders: Orders TDaP Immunization Today Z23 - Encounter for immunization Medications: New doxycycline hyclate 100 mg PO BID 14 days 28 tabs 0RF metronidazole 500 mg PO Q8H 14 days 42 tabs 0RF Coding Level of Care Code Est Pt Level 3 (54082) Diagnoses Animal bite T14.8XXA
== END 2023-07-31 15:57 | disposition home or self-care (01) ==
PROVIDERS: PCP Internal Medicine; Visit Provider Physician Assistant
DX: S61.531A Puncture wound without foreign body of right wrist, initial encounter (principal); T14.8XXA Other injury of unspecified body region, initial encounter; Z23 Encounter for immunization
CPT/HCPCS: 90471; 90715; 99051; 99213

== ENCOUNTER 2023-08-02 10:26 | Outpatient (REF) | payer MEDICARE, OTHER, SELFPAY ==
[2023-08-02 13:12] LABS: MANUAL DIFF FLAG NO
[2023-08-02 13:38] LABS: Basophils Absolute Auto 0.1 X10*3/uL (0.0-0.2); Basophils Percent Auto 0.7 % (0-2); Eosinophils Absolute Auto 0.3 X10*3/uL (0.0-0.4); Eosinophils Percent Auto 4.4 % (0-4); Hematocrit 39.3 % (37.0-47.0); Hemoglobin 12.2 g/dl (12.0-16.0); Imm Gran Abs Auto 0.03 X10*3/uL (0.00-0.03); Imm Gran Pct Auto 0.4 % (0.0-0.4); Lymphocytes Absolute Auto 0.7 X10*3/uL (1.2-4.9); Lymphocytes Percent Auto 9.1 % (20-40); Mean Corpuscular Hemoglobin 27.1 pg (27.0-33.0); Mean Corpuscular Volume 87.1 fL (80.0-98.0); Mean Platelet Volume 9.1 fL (9.4-12.3); Monocytes Absolute Auto 0.7 X10*3/uL (0.1-1.2); Monocytes Percent Auto 9.2 % (2-11); Neutrophils Absolute Auto 5.7 x10*3/uL (2.0-8.3); Neutrophils Percent Auto 76.2 % (45-73); Platelet Count 329 X10*3/uL (160-400); Red Blood Count 4.51 X10*6/uL (4.20-5.50); Red Cell Distribution Width 16.2 % (11.0-16.0); White Blood Count 7.5 X10*3/uL (4.8-10.8)
[2023-08-02 13:49] LABS: Appearance Urine Clear; Color Urine Yellow; Glucose Urine UA Negative (Negative); Leukocyte Esterase Urine Moderate (2+) (Negative); Nitrite Urine Negative (Negative); Specific Gravity - Urine 1.015 (1.005-1.025); UMIC TRIGGER UACC YES; Urine Blood Negative (Negative); Urine Ketones Negative (Negative); Urine Protein Trace mg/dL (Neg-Trace)
[2023-08-02 13:56] LABS: Estimated Average Glucose 114 mg/dL; Hemoglobin A1c % 5.6 % (<6.0)
[2023-08-02 13:56] LABS: Bacteria Urine Trace (None Seen); Hyaline Casts Urine 0-2 /LPF (0-2); RBC Urine 0-2 /HPF (0-2); UACC Culture Trigger YES
[2023-08-02 14:20] LABS: Alanine Aminotransferase 13 U/L (0-31); Albumin Level 3.7 g/dL (3.5-5.0); Alkaline Phosphatase 87 U/L (39-117); Anion Gap 15 (12-20); Aspartate Amino Transferase 13 U/L (5-31); Bilirubin Total 0.4 mg/dL (0.0-1.0); Blood Urea Nitrogen 26 mg/dL (9-16); Calcium 9.6 mg/dL (8.4-10.2); Carbon Dioxide 23 mmol/L (22-29); Chloride 105 mmol/L (96-108); Cholesterol 136 mg/dL (<200); Estimated Glomerular Filt Rate 38; Glucose Fasting 117 mg/dL (60-99); HDL Cholesterol 28 mg/dL (>40); LDL Cholesterol Calculated 88 mg/dL (<100); Sodium 139 mmol/L (135-145); Total Protein 7.1 g/dL (6.5-8.0); Triglycerides 103 mg/dL (<150)
[2023-08-02 14:24] LABS: TSH reflex Free T4 0.28 uIU/mL (0.32-4.0); Vitamin D 25-OH Total 30.8 ng/mL (>30)
[2023-08-02 14:47] LABS: Creatinine Urine 98.84 mg/dL; Microalbum/Creatinine Ratio Ur 80.9 ug/mg cr (<30)
[2023-08-02 14:57] LABS: Free T4 (Free Thyroxine) 1.24 ng/dL (0.71-1.85)
== END 2023-08-02 10:27 | disposition home or self-care (01) ==
LOC: HO.HMGCLDS 10:26
PROVIDERS: PCP Internal Medicine; Visit Provider Internal Medicine
DX: E11.9 Type 2 diabetes mellitus without complications (principal); E78.00 Pure hypercholesterolemia, unspecified; E55.9 Vitamin D deficiency, unspecified; I10 Essential (primary) hypertension; R82.90 Unspecified abnormal findings in urine
CPT/HCPCS: 36415; 80053; 80061; 81001; 82043; 82306; 82570; 83036; 84439; 84443; 85025; 87086

== ENCOUNTER 2023-08-12 10:59 | Outpatient (AMB) | payer MEDICARE, OTHER, SELFPAY ==
--- NOTE | 2023-08-12 11:01 | MHC.PC.OV ---
Vital Signs 08/12/23 11:03 Height 5 ft 2 in Weight 190 lb 8 oz BMI 34.8 BP 102/60 Blood Pressure Location Lt brachial Position Sitting Pulse 63 Pulse Source Pulse Oximeter Pulse Oximetry (%) 93 Oxygen Delivery Method Room Air Intake Visit Reasons: 3 month f/u Intake Note: Patient is here to follow up on DM, GERD, HTN, HLD, . Radio Engineering Teacher Required: No Assistant Librarian: Not Required per policy Accompanied by: Self / Same As Patient Allergies Iodinated Contrast Media [IV DYE, IODINE CONTAINING CONTRAST ] Allergy (Severe, Verified 11/22/23 13:52) HIVE Penicillins [PENICILLINS] Allergy (Severe, Verified 11/22/23 13:52) HIVES Medication List - Last Reconciled 08/12/23 by Jamel Mansfield MD allopurinol 100 mg PO DAILY 90 days atorvastatin (Lipitor) 80 mg PO DAILY cholecalciferol (vitamin D3) 50 mcg PO DAILY 90 days citalopram 30 mg PO DAILY diltiazem HCl ER 240 mg PO DAILY doxycycline hyclate 100 mg PO BID 14 days ferrous sulfate (Feosol) 325 mg PO BID fluticasone furoate-vilanterol 200-25 mcg/dose (Breo Ellipta) 1 inh inhalation DAILY 30 days glimepiride 1 mg PO DAILY Incruse Ellipta 62.5 mcg/actuation (umeclidinium) 1 inh inhalation DAILY 30 days NS Januvia (sitagliptin phosphate) 100 mg PO DAILY 30 days NS lansoprazole (Prevacid) 30 mg PO DAILY@0630 magnesium 400 mg PO DAILY mecobalamin (vitamin B12) 5,000 mcg PO DAILY melatonin 10 mg PO BEDTIME PRN metoprolol succinate ER 100 mg PO DAILY 90 days metronidazole 500 mg PO Q8H 14 days mirtazapine 15 mg PO BEDTIME montelukast 10 mg PO DAILY nystatin 1 appl topical TID 10 days potassium chloride ER 40 mEq (2 x 20 mEq) PO DAILY 90 days potassium chloride ER 40 mEq (4 x 10 mEq) PO DAILY 90 days prothrombin time/INR test metr (Coaguchek XS Pro) As directed prothrombin time/INR test metr (Coaguchek XS Pro) As directed torsemide 40 mg PO DAILY trazodone 50 mg PO BEDTIME PRN warfarin Take 1 tablet daily or as instructed orally; Tobacco use date assessed: 08/12/23 Fall risk assessment: 1 Fall in past year Last assessed Fall Risk: 08/12/23 Dental Screening Dental Screen Date: 08/12/23 Did you have a dental visit in the last 12 months?: Yes Did you have a dental problem in the last 6 months where you did not have access to dental care?: No Was dental information given to patient?: Patient has dentist HPI 3 month f/u HPI Details Patient comes in today for her follow up visit States that she feels okay but continues to experience increased weakness over both legs and she is now having progressive difficulty walking and moving around now even at home in her own small apartment Notes that with her leg weakness, she cannot walk or go too far and has to sit down and rest She denies any headaches or dizziness lately Denies any chest pains, no increased SOB No nausea/vomiting, no abdominal pain No change in bowel habits noted - still has frequent loose stools everyday and every now and then, has a bout of completely watery diarrhea; has not seen any blood in her stool lately Still has recurrent low back pain and right hip pain - is not sure how much of these are contributing to her current leg weakness and difficulty walking She had her follow up labs done last week - to discuss her results [facility] Medical History Pneumonia Chronic diastolic heart failure CHF (congestive heart failure) Thrush, oral GI bleed Occult blood positive stool Microcytic anemia Valvular heart disease Exertional dyspnea Hemorrhagic cystitis Osteopenia Toxic multinodular goiter Obesity (BMI 30-39.9) Hearing impairment Peripheral vascular disease Obesity (BMI 30-39.9) Depression Anxiety Osteoarthritis of ankle and foot Vitamin D deficiency Allergic rhinitis Anemia GERD without esophagitis Gout Hypomagnesemia Multiple thyroid nodules Pure hypercholesterolemia Benign essential hypertension PSVT (paroxysmal supraventricular tachycardia) PAC (premature atrial contraction) COPD (chronic obstructive pulmonary disease) Chronic kidney disease (CKD), stage III (moderate) Type 2 diabetes mellitus with diabetic chronic kidney disease Sciatica of right side Surgical History History of colonoscopy History of angioplasty of peripheral vessel (~08/13/20) History of biopsy History of neck surgery History of cataract surgery History of bladder surgery History of tonsillectomy and adenoidectomy History of appendectomy History of hysterectomy Family History Father Stroke CVD (cardiovascular disease) Mother CVD (cardiovascular disease) Hypertension CAD (coronary artery disease) Other Mental health disorder Social History Household Members: None Housing: Condominium Do you presently have visiting nurse or other home services: Yes (command and control specialist once per week- [facility]) Alcohol intake: current Alcohol intake frequency: holidays/special occasions only Alcohol type: beer and hard liquor Patient Tobacco Use Status: Former Tobacco user Tobacco use type: Cigarette Cigarette Packs Per Day: 2 Cigarettes Per Day: 40.0 Years Smoked: 40 e-Cigarette/Vaping Use: Never Used Second Hand Smoke Exposure: Yes service: No Current occupational status: retired Cognitive needs: Yes (cane) Hearing needs: Yes Vision needs: Yes Questionnaire PHQ-9 Over the last 2 weeks, how often have you been bothered by any of the following problems? 1. Little interest or pleasure in doing things: not at all 2. Feeling down, depressed, or hopeless: not at all 3. Trouble falling or staying asleep, or sleeping too much: not at all 4. Feeling tired or having little energy: not at all 5. Poor appetite or overeating: not at all 6. Feeling bad about yourself - or that you are a failure or have let yourself or your family down: not at all 7. Trouble concentrating on things, such as reading the newspaper or watching television: not at all 8. Moving or speaking so slowly that other people could have noticed. Or the opposite - being so fidgety or restless that you have been moving around a lot more than usual: not at all 9. Thoughts that you would be better off or of hurting yourself in some way: not at all Total score: 0 Depression Screening Interpretation: Negative Depression Screening Done: Yes 13446 - PHQ-9 Billing: Yes Source: Developed by Drs. Steven Hebert, Ursula Watson, Jared Joshi and colleagues, with an educational fredrick from [employer]. Thrive Questionnaire Date Thrive assessed: 08/12/23 I am a: Patient What is your living situation today?: I have a steady place to live Within the past 12 months, did the food you bought not last and you didn't have the money to get more?: Never true Within the past 12 months, did you worry whether your food would run out before you got money to buy more?: Never true Do you have trouble paying for medicines?: No Do you have trouble getting transportation to medical appointments?: No Do you have trouble paying your heating and electricity bill?: No Do you have trouble taking care of your child, family member or friend?: No Do you have trouble with day-to-day activities such as bathing, preparing meals, shopping, managing finances, etc.?: No Are you currently unemployed and looking for a job?: No Are you interested in more education?: No Currently or been in a relationship where the following occur: no concerns reported THRIVE Score: 0 AUDIT C Alcohol Use Questionnaire (AUDIT-C) 1. How often do you have a drink containing alcohol?: Never Total Score: 0 Score Reviewed/Action Taken: Yes ABEL-7 AMB Questionnaire ABEL-7 Date ABEL - 7 assessed: 08/12/23 Feeling nervous, anxious, or on edge: 0 = Not at all Not being able to stop or control worryin = Not at all Worrying too much about different things: 0 = Not at all Trouble relaxin = Not at all Being so restless that it is hard to sit still: 0 = Not at all Becoming easily annoyed or irritable: 0 = Not at all Feeling afraid as if something awful might happen: 0 = Not at all Total ABEL-7 score (0-4 normal; 5-9 mild; 10-14 moderate; 15-21 severe): 0 Source: Developed by Drs. Steven Hebert, Ursula Watson, Jared Joshi and colleagues, with an educational fredrick from [employer]. Review of Systems Const Denies chills, Reports fatigue, Denies fever(s), Denies headache(s) and Reports weakness (of both legs) ENT Denies dysphagia, Denies dizziness, Denies otalgia, Denies headache(s), Denies nasal congestion, Denies odynophagia, Denies sinus pain and Denies sore throat Card Denies chest pain, Reports claudication (over both lower extremities), Denies palpitations and Reports dyspnea on exertion (with minimal exertion/activity) Resp Denies cough, Reports dyspnea on exertion (with minimal exertion/activity) and Denies wheezing GI Denies abdominal pain, Denies hematochezia, Denies constipation, Denies dysphagia, Denies heartburn, Reports diarrhea (occasionally, about once a week), Reports loose stools (frequent), Denies nausea, Denies odynophagia, Denies vomiting and Reports hematemesis Denies difficulty voiding, Denies nocturia, Denies dysuria and Denies urinary urgency Musc Reports back pain (recurrent), Reports arthralgias (right hip, on and off) and Reports radiating pain into limb (down into right leg) Skin/Breast Denies rash Neuro Denies dizziness, Denies headache(s) and Reports weakness (of both legs) Endo Reports fatigue and Denies palpitations Sean/Lymph Details: (+) recurrent pain/claudication over her left lower extremity Aller/Immun Denies wheezing Physical exam (Primary Care) Vital Signs: Last Vital Signs Pulse 63 08/12/23 11:03 BP 102/60 08/12/23 11:03 Pulse Ox 93 08/12/23 11:03 Oxygen Delivery Method Room Air 08/12/23 11:03 BMI result Body Mass Index 34.8 Tobacco/Smoking Status: Tobacco use Status Tobacco use date assessed 08/12/23 08/12/23 11:05 Patient Tobacco Use Status Former Tobacco user 08/12/23 11:05 Tobacco use type Cigarette 08/12/23 11:05 e-Cigarette/Vaping Use Never Used 08/12/23 11:05 PHQ-9: PHQ-9 Score PHQ-9: Total score 0 08/12/23 11:38 Depression Screening Interpretation: Negative Thrive Assessment: Date of Thrive Assessment Date Thrive assessed 08/12/23 08/12/23 11:05 Currently or been in a relationship where the following occur: no concerns reported Const General: no acute distress and alert HENMT Ears: TM's normal bilaterally and EAC's normal Throat: Yes posterior oropharynx normal and Yes tonsils normal (no TP congestion noted) Neck Neck: Yes no lymphadenopathy and Yes supple Resp Auscultation: clear to auscultation bilaterally, no rales and no wheezes Cardio Rate: regular rate Rhythm: regular rhythm Heart sounds: Murmur heart sound present diastolic blowing and at the apex and systolic III/ and at the base GI Palpation (GI): Soft to palpation and nontender Auscultation: normal bowel sounds General: Yes no CVA tenderness Back/Spine/Pelvis Back: no CVA tenderness Thoracic/Lumbar Spine: lumbar spinal tenderness and straight leg raise positive right Skin Rashes: no rashes Extrem General: Yes no clubbing, cyanosis or edema Results Reviewed Results Reviewed: Laboratory Tests 07/19/23 08/02/23 08/02/23 13:45 10:32 10:32 WBC 7.5 Hgb 12.2 Hct 39.3 Plt Count 329 Sodium 139 Potassium 4.0 Creatinine 1.32 Estimated GFR 38 Fasting Glucose 117 H Hemoglobin A1c % Calcium 9.6 AST 13 ALT 13 NT-Pro-B Natriuret Pep 3598 H Triglycerides 103 Cholesterol 136 LDL Cholesterol, Calc 88 HDL Cholesterol 28 L 25-OH Vitamin D Total 30.8 L TSH 0.28 L Free T4 1.24 Ur Specific [place] Urine Protein Urine Glucose (UA) Urine Blood Urine Nitrite Ur Leukocyte Esterase Microalb/Creat Ratio 08/02/23 08/02/23 08/02/23 10:32 10:35 10:35 WBC Hgb Hct Plt Count Sodium Potassium Creatinine Estimated GFR Fasting Glucose Hemoglobin A1c % 5.6 Calcium AST ALT NT-Pro-B Natriuret Pep Triglycerides Cholesterol LDL Cholesterol, Calc HDL Cholesterol 25-OH Vitamin D Total TSH Free T4 Ur Specific [place] 1.015 Urine Protein Trace Urine Glucose (UA) Negative Urine Blood Negative Urine Nitrite Negative Ur Leukocyte Esterase Moderate (2+) H Microalb/Creat Ratio 80.9 H Assessment and Plan Assessment & Plan (1) Chronic diastolic heart failure: Comment: SHE IS BEING FOLLOWED BY CARDIOLOGY REGULARLY, AND BEING TREATED FOR CHRONIC DIASTOLIC CONGESTIVE HEART FAILURE. I THINK HER CARDIAC FUNCTION HAS DETERIORATED WHICH ACCOUNTS FOR HER INCREASED SHORTNESS OF BREATH. Code(s): I50.32 - Chronic diastolic (congestive) heart failure Plan: She currently appears compensated Reinforced fluid restriction Continue Torsemide 40 mg QD Follow up with cardiology as scheduled (2) Valvular heart disease: Code(s): I38 - Endocarditis, valve unspecified Plan: Previous echocardiogram done on 01/14/2021 revealed (+) normal LV size and function, with hyperdynamic EF of >70%; left atrium is severely dilated, with moderate AR and moderate as well as moderate MR and severe MS and mild pulmonary hypertension - these changes appear to be worse compared to previous findings Repeat echocardiogram done on 07/17/2021 revealed that findings are mostly unchanged from previous but the gradient across the mitral valve is slightly less and PA pressures have improved in the gradient across the aortic valve is slightly improved She reportedly had a normal cardiac cath done at [facility] back in August 2022 She has also been advised that she will potentially require valve replacement or repair of her mitral and aortic valve - patient does not feel she is ready for either at this time Follow up with cardiology as scheduled - used to see Dr. Ajay Hannah but is now seeing a new harbor engineer (Dr. Nance) (3) PSVT (paroxysmal supraventricular tachycardia): Code(s): I47.1 - Supraventricular tachycardia Plan: Currently controlled on Diltiazem ER - patient reports no recent symptoms of arrhythmia Follow-up with cardiology as scheduled (4) PAC (premature atrial contraction): Code(s): I49.1 - Atrial premature depolarization Plan: This has been better controlled on Diltiazem lately - continue Diltiazem ER 240 mg QD Follow-up with cardiology as scheduled (5) Type 2 diabetes mellitus with diabetic chronic kidney disease: Code(s): E11.22 - Type 2 diabetes mellitus with diabetic chronic kidney disease Qualifiers: Chronic kidney disease stage: stage 3 (moderate) Chronic kidney disease stage 3 subtype: stage 3a (GFR 45-59) Diabetes mellitus mcc insulin use: without mcc use Qualified Code(s): E11.21 - Type 2 diabetes mellitus with diabetic nephropathy; N18.31 - Chronic kidney disease, stage 3a Plan: Her HgbA1c was at 5.6% on her labs done last week (in-office HgbA1c was at 5.8% a few months ago) - goal is <7.0% Reinforced diabetic diet Continue Januvia 100 mg QD and Glimepiride 1 mg QD (she could not tolerate Metformin / Metformin ER due to diarrhea) Will consider switching her to an SGLT2 inhibitor like Farxiga for their cardiac and renal benefits (if appropriate) later on once her current issues have been resolved Will recheck her labs and HgbA1c in 3 months for follow up (6) Chronic kidney disease (CKD), stage III (moderate): Code(s): N18.30 - Chronic kidney disease, stage 3 unspecified Qualifiers: Chronic kidney disease stage 3 subtype: stage 3a (GFR 45-59) Qualified Code(s): N18.31 - Chronic kidney disease, stage 3a Plan: Patient reportedly developed MARBELLA while she was admitted to the hospital last year and her Valsartan was discontinued back then Will continue to monitor her GFR and serum creatinine / renal function regularly (7) Benign essential hypertension: Code(s): I10 - Essential (primary) hypertension Plan: Reinforced low-sodium diet - goal is systolic BP of at least 140 to 150 mm or less Continue Metoprolol ER 100 mg QD Her Valsartan 160 mg was discontinued while she was in the hospital last year due to MARBELLA (8) Pure hypercholesterolemia: Code(s): E78.00 - Pure hypercholesterolemia, unspecified Plan: Results of her labs done last week reviewed and discussed with patient Reinforced low cholesterol diet Continue Atorvastatin 40 mg QD Will recheck her labs and fasting lipids in a few months for follow up (9) COPD (chronic obstructive pulmonary disease): Comment: SHE HAS MODERATELY SEVERE ASTHMA/COPD. WITH THE CURRENT COMBINATION SHE IS FEELING BETTER. SHE HAS NOT REQUIRING ANY NEED FOR RESCUE INHALER. Code(s): J44.9 - Chronic obstructive pulmonary disease, unspecified Qualifiers: COPD type: unspecified COPD Qualified Code(s): J44.9 - Chronic obstructive pulmonary disease, unspecified Plan: Stable Continue Advair Diskus 250-50 mcg 1 inhalation BID, Incruse Ellipta 62.5 mcg 1 inhalation QD and Albuterol HFA 108 mcg 2 puffs 4 times a day as needed Follow up with pulmonary as scheduled - sees Dr. Cardona (10) Peripheral vascular disease: Comment: S/P angioplasty of left lower extremity in July 2020 Code(s): I73.9 - Peripheral vascular disease, unspecified Plan: S/P angioplasty although patient did not feel that her surgery helped a lot She was on dual antiplatelet therapy with low dose Aspirin 81 mg QD and Clopidogrel 75 mg QD previously but is now just on Clopidogrel (Aspirin was discontinued due to GI bleed and profound anemia) Follow up with vascular surgery as scheduled (11) Chronic low back pain with right-sided sciatica: Code(s): M54.41 - Lumbago with sciatica, right side; G89.29 - Other chronic pain Qualifiers: Back pain laterality: right Qualified Code(s): M54.41 - Lumbago with sciatica, right side; G89.29 - Other chronic pain Plan: Lumbar spine x-rays done back in April 2022 revealed (+) multilevel lumbar spondylosis and facet arthritis, with no acute changes or fractures noted Reinforced activity and weight-lifting restrictions Will consider referring to pain management if her low back pain progresses (12) Bilateral leg weakness: Code(s): R29.898 - Other symptoms and signs involving the musculoskeletal system Plan: Have discussed with patient that her lower leg weakness are likely related to her polyneuropathy that may or may not be associated with her lower back issues and with her joint pains Will send her for EMG and NCV of the lower extremities for further evaluation (13) Toxic multinodular goiter: Code(s): E05.20 - Thyrotoxicosis with toxic multinodular goiter without thyrotoxic crisis or storm Plan: Her TFTs were normal on her most recent labs done last week FNA Bx done on 06/17/2017 came out benign Ultrasound done last year came back unchanged and recommendation is to just continue with yearly ultrasound for continuing surveillance Follow-up with endocrinology as scheduled (14) Anemia: Code(s): D64.9 - Anemia, unspecified Qualifiers: Anemia type: unspecified type Qualified Code(s): D64.9 - Anemia, unspecified Plan: H/H have improved/corrected on her recent labs This was most likely due to GI bleeding related to her previous dual antiplatelet therapy that required blood transfusion of 2 units of PRBC in January 2021 and 1 more unit in April 2021 She is also s/p IV iron infusion in March 2021 Continue Ferrous Sulfate 325 mg BID Follow up with hematology as scheduled (15) Hypomagnesemia: Code(s): E83.42 - Hypomagnesemia Plan: Corrected on her previous labs - will continue to monitor regularly (16) Gout: Code(s): M10.9 - Gout, unspecified Qualifiers: Chronicity: unspecified Gout etiology: unspecified cause Gout site: unspecified site Qualified Code(s): M10.9 - Gout, unspecified Plan: Asymptomatic Reinforced low purine diet Continue Colcrys 0.6 mg twice a day, Indomethacin 25 mg twice a day with food as needed (17) GERD without esophagitis: Code(s): K21.9 - Gastro-esophageal reflux disease without esophagitis Plan: Dietary restrictions reinforced Continue Lansoprazole 30 mg daily; may take some OTC Famotidine 20 mg PRN for symptomatic relief Follow-up with GI as scheduled (18) Vitamin D deficiency: Code(s): E55.9 - Vitamin D deficiency, unspecified Plan: Continue Vitamin D3 5000 units once a day (19) Anxiety: Code(s): F41.9 - Anxiety disorder, unspecified Plan: States that her Citalopram is helping with her anxiety (20) Depression: Code(s): F32.9 - Major depressive disorder, single episode, unspecified Qualifiers: Active/Remission status: currently active Depression Type: major depressive disorder Major depression episode severity: unspecified Major depression recurrence: recurrent Qualified Code(s): F33.9 - Major depressive disorder, recurrent, unspecified Plan: Continue Citalopram 40 mg QD and Mirtazapine 15 mg Q HS Follow-up with Psychiatry as scheduled - is now seeing a nurse practitioner as her previous psychiatrist retired from active practice (21) Obesity (BMI 30-39.9): Comment: SHE IS MODERATELY OBESE, AND IS NOT ABLE TO LOSE MUCH WEIGHT. Code(s): E66.9 - Obesity, unspecified Plan: Reinforced diet; exercise and weight loss are unrealistic in this patient as she is currently experiencing a lot of vascular symptoms and has multiple comorbidities that significantly limits her activity and exercise tolerance Plan Follow up in 3 months Orders: Orders NE nerve conduction velocity 08/12/23 R29.898 - Other symptoms and signs involving the musculoskeletal system Complete Blood Count Auto Diff 3 Months D64.9 - Anemia, unspecified Lipid Panel 3 Months E78.00 - Pure hypercholesterolemia, unspecified Comprehensive [place]. Panel Fast 3 Months E78.00 - Pure hypercholesterolemia, unspecified Hemoglobin A1c 3 Months E11.9 - Type 2 diabetes mellitus without complications Vitamin D 25-OH Total 3 Months E55.9 - Vitamin D deficiency, unspecified NE electromyogram (EMG) 08/12/23 R29.898 - Other symptoms and signs involving the musculoskeletal system TSH reflex Free T4 3 Months E78.00 - Pure hypercholesterolemia, unspecified UA CC w/rflx Micro + Cult 3 Months R30.0 - Dysuria Microalbumin, Random (w Creat) 3 Months E11.9 - Type 2 diabetes mellitus without complications Vitamin B12 and Folate 3 Months E53.8 - Deficiency of other specified B group vitamins B Type Natriuretic Peptide 3 Months I50.9 - Heart failure, unspecified Coding Level of Care Code Est Pt Level 4 (64992) Complex EM visit Add On G2211 Diagnoses Chronic diastolic heart failure I50.32 Valvular heart disease I38 PSVT (paroxysmal supraventricular tachycardia) I47.1 PAC (premature atrial contraction) I49.1 Type 2 diabetes mellitus with stage 3a chronic kidney disease, without long-term current use of insulin E11.21; N18.31 Chronic kidney disease stage: stage 3 (moderate) Chronic kidney disease stage 3 subtype: stage 3a (GFR 45-59) Diabetes mellitus terminal carman insulin use: without terminal carman use Stage 3a chronic kidney disease N18.31 Chronic kidney disease stage 3 subtype: stage 3a (GFR 45-59) Benign essential hypertension I10 Pure hypercholesterolemia E78.00 Chronic obstructive pulmonary disease, unspecified COPD type J44.9 COPD type: unspecified COPD Peripheral vascular disease I73.9 Chronic right-sided low back pain with right-sided sciatica M54.41; G89.29 Back pain laterality: right Bilateral leg weakness R29.898 Toxic multinodular goiter E05.20 Anemia, unspecified type D64.9 Anemia type: unspecified type Hypomagnesemia E83.42 Gout, unspecified cause, unspecified chronicity, unspecified site M10.9 Chronicity: unspecified Gout etiology: unspecified cause Gout site: unspecified site GERD without esophagitis K21.9 Vitamin D deficiency E55.9 Anxiety F41.9 Episode of recurrent major depressive disorder, unspecified depression episode severity F33.9 Active/Remission status: currently active Depression Type: major depressive disorder Major depression episode severity: unspecified Major depression recurrence: recurrent Obesity (BMI 30-39.9) E66.9
[2023-08-12 11:03] VITALS: BP 102/60; PULSE 63; O2SAT 93; BMI 34.8
== END 2023-08-12 11:52 | disposition home or self-care (01) ==
PROVIDERS: PCP Internal Medicine; Visit Provider Internal Medicine
DX: R19.7 Diarrhea, unspecified (principal); E11.22 Type 2 diabetes mellitus with diabetic chronic kidney disease; N18.31 Chronic kidney disease, stage 3a; E78.00 Pure hypercholesterolemia, unspecified; I49.1 Atrial premature depolarization; I10 Essential (primary) hypertension; M54.41 Lumbago with sciatica, right side; G89.29 Other chronic pain; R29.898 Other symptoms and signs involving the musculoskeletal system; E05.20 Thyrotoxicosis with toxic multinodular goiter without thyrotoxic crisis or storm; D64.9 Anemia, unspecified; E83.42 Hypomagnesemia; M10.9 Gout, unspecified; K21.9 Gastro-esophageal reflux disease without esophagitis; E55.9 Vitamin D deficiency, unspecified; F41.9 Anxiety disorder, unspecified
CPT/HCPCS: 99214; G2211

== ENCOUNTER 2023-09-29 13:47 | Outpatient (REF) | payer MEDICARE, OTHER, SELFPAY ==
--- NOTE | 2023-09-29 13:51 | EMG_ITS ---
Chief complaint: Back pain and leg pain, left worse than right. Occasional numbness in feet only. History of diabetes. On Coumadin for atrial fibrillation. History of lumbar disc surgery. Reason for referral: Evaluate for neuropathy Referred by: Dr. Mansfield Procedure done: Bilateral lower extremity NCS/EMG Precautions and/or limitations: None The limb temperature was monitored continuously and remained between 32-36 degrees C during the performance of the NCS. Nerve Conduction Studies Anti Sensory Summary Table ?Stim Site NR Onset (ms) Norm Onset (ms) Peak (ms) Norm Peak (ms) O-P Amp (?V) Norm O-P Amp Site1 Site2 Delta-0 (ms) Dist (cm) Geovanny (m/s) Norm Geovanny (m/s) Left Sural Anti Sensory (Lat Mall) Calf ? 1.4 3.4 <4.0 8.0 >5.0 Calf Lat Mall 1.4 14.0 100 Right Sural Anti Sensory (Lat Mall) Calf ? 2.5 3.0 <4.0 5.8 >5.0 Calf Lat Mall 2.5 14.0 56 Motor Summary Table ?Stim Site NR Onset (ms) Norm Onset (ms) O-P Amp (mV) Norm O-P Amp iAmp (mV) Amp (1st) (%) Site1 Site2 Delta-0 (ms) Dist (cm) Geovanny (m/s) Norm Geovanny (m/s) Right Peroneal Motor (Ext Dig Brev) Ankle ? 3.7 <4.0 2.4 >2.5 3.3 100.0 Ankle Ext Dig Brev 3.7 0.0 B Fib ? 10.8 2.3 3.1 95.8 B Fib Ankle 7.1 29.0 41 >40 Poplt ? 11.3 2.3 3.1 95.8 Poplt B Fib 0.5 6.0 120 >40 Left Tibial Motor (Abd Hoyos Brev) Ankle ? 3.8 <5 2.7 >2.5 3.9 100.0 Ankle Abd Hoyos Brev 3.8 0.0 Knee ? 13.8 0.8 1.1 29.6 Knee Ankle 10.0 37.0 37 >40 Right Tibial Motor (Abd Hoyos Brev) Ankle ? 3.6 <5 0.9 >2.5 1.0 100.0 Ankle Abd Hoyos Brev 3.6 0.0 Knee NR Knee Ankle 0.0 >40 EMG ?Side Muscle Nerve Root Ins Act Fibs Psw Amp Dur Poly Recrt Int Pat Comment Right AbdHallucis MedPlantar S1-2 Nml Nml Nml Nml Nml 0 Nml Complete Right AntTibialis Dp Br Peron L4-5 Nml Nml Nml Nml Nml 0 Nml Complete Right MedGastroc Tibial S1-2 Incr 1+ 1+ Incr Incr 0 Nml Complete Right VastusMed Femoral L2-4 Nml Nml Nml Nml Nml 0 Nml Complete Left AbdHallucis MedPlantar S1-2 Incr 1+ 1+ Nml Nml 0 Nml Complete Left AntTibialis Dp Br Peron L4-5 Nml Nml Nml Nml Nml 0 Nml Complete Left MedGastroc Tibial S1-2 Nml Nml Nml Nml Nml 0 Nml Complete Left VastusMed Femoral L2-4 Nml Nml Nml Nml Nml 0 Nml Complete Left Peroneus Long Sup Br Peron L5-S1 Nml Nml Nml Nml Nml 0 Nml Complete Right Peroneus Long Sup Br Peron L5-S1 Nml Nml Nml Nml Nml 0 Nml Complete FINDINGS: Right peroneal nerve showed normal distal latency, very slightly smaller amplitude and normal conduction velocity. Right tibial nerve showed very small, almost absent amplitudes. Left tibial nerve showed normal distal latency, small amplitude and slow conduction velocity. Bilateral sural nerves were within normal. Concentric needle EMG was performed in selected muscles of the bilateral lower extremity. Study revealed signs of electric abnormalities as shown in the table above. Right medial gastrocnemius showed increased insertional activity, PSWs and fibrillations, and increased duration and amplitude. Left AH showed increased insertional activity, PSWs and fibrillations. IMPRESSION: 1. This is an abnormal study. 2. There is electrodiagnostic evidence for acute on chronic bilateral L5-S1 radiculopathy. 3. There is no electrodiagnostic evidence for peroneal neuropathy, sciatic neuropathy, lumbar plexopathy or peripheral neuropathy. Thank you for your kind referral. Francoise Hernandez MD, LILIANA Board Certified, [place] [employer] and [employer] (ABPMR) Board Certified, [place] Board [employer] Electrodiagnostic [employer] (ABEM) CODIN [id number] x 2 MTDD
== END 2023-09-29 13:48 | disposition home or self-care (01) ==
LOC: HO.NEURO 13:47
PROVIDERS: PCP Internal Medicine; Visit Provider Internal Medicine
DX: R29.898 Other symptoms and signs involving the musculoskeletal system (principal)
CPT/HCPCS: 95886; 95909

== ENCOUNTER → 2023-09-29 13:51 | Outpatient (BNV) | payer MEDICARE, OTHER, SELFPAY | PROVIDERS: PCP Internal Medicine; Visit Provider Physical Medicine & Rehabilitation | DX: M54.50 Low back pain, unspecified (principal); M79.605 Pain in left leg; R20.2 Paresthesia of skin | CPT/HCPCS: 95886; 95909 ==

== ENCOUNTER 2023-10-05 13:27 | Outpatient (AMB) | payer MEDICARE, OTHER, SELFPAY ==
[2023-10-05 13:35] VITALS: BP 110/52; PULSE 57; O2SAT 92; BMI 35.1
--- NOTE | 2023-10-05 13:35 | A.OFFVIS_ITS ---
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 [employer] Intern Required: No Allergies Iodinated Contrast Media [IV DYE, IODINE CONTAINING CONTRAST ] Allergy (Severe, Verified 10/05/23 13:55) HIVE Penicillins [PENICILLINS] Allergy (Severe, Verified 10/05/23 13:55) HIVES Medication List - Last Reconciled 10/05/23 by Schuyler Cardona MD allopurinol 100 mg PO DAILY 90 days atorvastatin (Lipitor) 80 mg PO DAILY cholecalciferol (vitamin D3) 50 mcg PO DAILY 90 days citalopram 30 mg PO DAILY diltiazem HCl ER 240 mg PO DAILY ferrous sulfate (Feosol) 325 mg PO BID fluticasone furoate-vilanterol 200-25 mcg/dose (Breo Ellipta) 1 inh inhalation DAILY 30 days glimepiride 1 mg PO DAILY Incruse Ellipta 62.5 mcg/actuation (umeclidinium) 1 inh inhalation DAILY 30 days NS Januvia (sitagliptin phosphate) 100 mg PO DAILY 30 days NS lansoprazole (Prevacid) 30 mg PO DAILY@0630 magnesium 400 mg PO DAILY mecobalamin (vitamin B12) 5,000 mcg PO DAILY melatonin 10 mg PO BEDTIME PRN metoprolol succinate ER 100 mg PO DAILY 90 days mirtazapine 15 mg PO BEDTIME montelukast 10 mg PO DAILY nystatin 1 appl topical TID 10 days potassium chloride ER 40 mEq (4 x 10 mEq) PO DAILY 90 days prothrombin time/INR test metr (Coaguchek XS Pro) As directed prothrombin time/INR test metr (Coaguchek XS Pro) As directed torsemide 40 mg PO DAILY trazodone 50 mg PO BEDTIME PRN warfarin Take 1 tablet daily or as instructed orally; Do you need a note to return to daycare/school/sports/work: No HPI HPI Shortness of breath: Details: Alice is 82 years old, with longstanding history of bronchial asthma/COPD and chronic allergic rhinitis. She is doing very well on. 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 Her locomotion is slow because of degenerative arthritis of the spine, so she does not walk fast or do any heavy physical work. These days her respiratory status is holding very stable. She does not need to use any rescue inhaler. [facility] Medical History Pneumonia Chronic diastolic heart failure CHF (congestive heart failure) Thrush, oral GI bleed Occult blood positive stool Microcytic anemia Valvular heart disease Exertional dyspnea Hemorrhagic cystitis Osteopenia Toxic multinodular goiter Obesity (BMI 30-39.9) Hearing impairment Peripheral vascular disease Obesity (BMI 30-39.9) Depression Anxiety Osteoarthritis of ankle and foot Vitamin D deficiency Allergic rhinitis Anemia GERD without esophagitis Gout Hypomagnesemia Multiple thyroid nodules Pure hypercholesterolemia Benign essential hypertension PSVT (paroxysmal supraventricular tachycardia) PAC (premature atrial contraction) COPD (chronic obstructive pulmonary disease) Chronic kidney disease (CKD), stage III (moderate) Type 2 diabetes mellitus with diabetic chronic kidney disease Sciatica of right side Surgical History History of colonoscopy History of angioplasty of peripheral vessel (~08/13/20) History of biopsy History of neck surgery History of cataract surgery History of bladder surgery History of tonsillectomy and adenoidectomy History of appendectomy History of hysterectomy Family History Father Stroke CVD (cardiovascular disease) Mother CVD (cardiovascular disease) Hypertension CAD (coronary artery disease) Other Mental health disorder Social History Household Members: None Housing: Condominium Do you presently have visiting nurse or other home services: Yes (transit clerk once per week- [facility]) Alcohol intake: current Alcohol intake frequency: holidays/special occasions only Alcohol type: beer and hard liquor Patient Tobacco Use Status: Former Tobacco user Quit Date: 1999 Tobacco use type: Cigarette Cigarette Packs Per Day: 2 Cigarettes Per Day: 40.0 Years Smoked: 40 e-Cigarette/Vaping Use: Never Used Second Hand Smoke Exposure: Yes service: No Current occupational status: retired Cognitive needs: Yes (cane) Hearing needs: Yes Vision needs: Yes Review of Systems Const All systems reviewed & are unremarkable except as noted in HPI and below Eyes Reports no additional complaints ENT Reports nasal congestion (Mostly controlled with use of med) Card Denies chest pain, Denies leg edema and Reports dyspnea on exertion (Her shortness of breath on activity is much increase than before) Resp Denies cough, Reports dyspnea on exertion (Her shortness of breath on activity is much increase than before) and Denies wheezing Reports no additional complaints Musc Reports back pain (Mild) and Reports arthralgias (Mild in multiple joints) Skin/Breast Reports system reviewed and no additional complaints, except as documented Neuro Reports no additional complaints Psych Reports anxiety Aller/Immun Denies wheezing Physical Exam Const General: comfortable, no acute distress, alert and awake Orientation/consciousness: patient oriented x3 HEENT Head: Yes normal to inspection General nose exam: No nasal polyps present and No nasal discharge present Face and sinus: Yes sinuses nontender Mouth: oropharynx abnormals (She has erythema of the oral mucosa and white spots over the soft palate ) Throat: Yes posterior oropharynx normal Eyes General: appearance normal, both eyes and all related structures Neck Neck: Yes normal visual inspection, Yes no lymphadenopathy, Yes trachea midline and Yes no JVD Thyroid: Thyroid normal Chest Chest palpation & inspection: normal inspection of the chest, normal palpation of entire chest wall and no tenderness Resp Other: Percussion note is resonant. Breath sounds are equal on both sides, slightly distant. No wheezes rhonchi or crepitations are heard. Cardio Palpation: normal PMI Rate: regular rate Rhythm: regular rhythm Heart sounds: no gallops and Murmur heart sound present (Loud systolic murmur at the aortic area as well as over left sternal border) GI Palpation (GI): Soft to palpation, nontender, No hepatosplenomegaly present and no masses Auscultation: normal bowel sounds Back/Spine/Pelvis Thoracic/Lumbar Spine: thoracic and lumbar spine normal to inspection and thoraco-lumbar ROM limited Skin General skin exam: no rashes or lesions noted Neuro General: patient oriented x3 and no focal motor deficits Cranial nerves: Yes CN's II-XII intact bilaterally Extrem General: Yes normal to inspection, Yes no clubbing, cyanosis or edema and Yes no calf tenderness Psych Appearance: grossly normal and well kempt Speech and movement: Normal speech and movement present Assessment & Plan Assessment & Plan (1) COPD (chronic obstructive pulmonary disease): Comment: SHE HAS MODERATELY SEVERE ASTHMA/COPD. WITH THE CURRENT COMBINATION SHE IS FEELING BETTER. SHE HAS NOT REQUIRING ANY NEED FOR RESCUE INHALER. Code(s): J44.9 - Chronic obstructive pulmonary disease, unspecified Category: Medical Qualifiers: COPD type: unspecified COPD Qualified Code(s): J44.9 - Chronic obstr uctive pulmonary disease, unspecified Plan: Continue to use Breo-200 1 inhalation daily And Incruse Ellipta 1 inhalation daily. (2) Allergic rhinitis: Comment: CHRONIC , GETS WORSE OFF AND ON , Code(s): J30.9 - Allergic rhinitis, unspecified Category: Medical Qualifiers: Allergic rhinitis trigger: unspecified Allergic rhinitis seasonality: unspecified Qualified Code(s): J30.9 - Allergic rhinitis, unspecified Plan: Montelukast 10 mg daily, Zyrtec 10 mg or Claritin 10 mg half or 1 tablet once a day but only p.r.n.. Coding Level of Care Code Est Pt Level 3 (03560) Diagnoses Chronic obstructive pulmonary disease, unspecified COPD type J44.9 COPD type: unspecified COPD Allergic rhinitis, unspecified seasonality, unspecified trigger J30.9 Allergic rhinitis trigger: unspecified Allergic rhinitis seasonality: unspecified
== END 2023-10-05 13:57 | disposition home or self-care (01) ==
PROVIDERS: PCP Internal Medicine; Visit Provider Internal Medicine
DX: J44.9 Chronic obstructive pulmonary disease, unspecified (principal); J30.9 Allergic rhinitis, unspecified
CPT/HCPCS: 99213

== ENCOUNTER → 2023-10-05 13:27 | Outpatient (BNVA) | payer MEDICARE, OTHER, SELFPAY | PROVIDERS: PCP Internal Medicine; Visit Provider Internal Medicine | DX: J44.9 Chronic obstructive pulmonary disease, unspecified (principal); J30.9 Allergic rhinitis, unspecified | CPT/HCPCS: 99212 ==

== ENCOUNTER 2023-10-12 13:19 | Outpatient (AMB) | payer MEDICARE, OTHER, SELFPAY ==
[2023-10-12 14:08] VITALS: BP 120/50; PULSE 56; O2SAT 93; BMI 34.4
--- NOTE | 2023-10-12 14:08 | AM.OFFWIN_ITS ---
Intake Vital Signs 10/12/23 14:08 Height 5 ft 2 in Weight 188 lb BMI 34.4 BP 120/50 L Blood Pressure Location Rt brachial Position Sitting Pulse 56 Pulse Source Pulse Oximeter Pulse Oximetry (%) 93 Oxygen Delivery Method Room Air Intake Visit Reasons: EP Infected cat bite Patient Tobacco Use Status: Former Tobacco user Quit Date: 1999 Allergies Iodinated Contrast Media [IV DYE, IODINE CONTAINING CONTRAST ] Allergy (Severe, Verified 10/12/23 14:13) HIVE Penicillins [PENICILLINS] Allergy (Severe, Verified 10/12/23 14:13) HIVES Medication List - Last Reconciled 10/12/23 by Ernesto Ross MD allopurinol 100 mg PO DAILY 90 days atorvastatin (Lipitor) 80 mg PO DAILY cholecalciferol (vitamin D3) 50 mcg PO DAILY 90 days citalopram 30 mg PO DAILY diltiazem HCl ER 240 mg PO DAILY ferrous sulfate (Feosol) 325 mg PO BID fluticasone furoate-vilanterol 200-25 mcg/dose (Breo Ellipta) 1 inh inhalation DAILY 30 days glimepiride 1 mg PO DAILY Incruse Ellipta 62.5 mcg/actuation (umeclidinium) 1 inh inhalation DAILY 30 days NS Januvia (sitagliptin phosphate) 100 mg PO DAILY 30 days NS lansoprazole (Prevacid) 30 mg PO DAILY@0630 magnesium 400 mg PO DAILY mecobalamin (vitamin B12) 5,000 mcg PO DAILY melatonin 10 mg PO BEDTIME PRN metoprolol succinate ER 100 mg PO DAILY 90 days mirtazapine 15 mg PO BEDTIME montelukast 10 mg PO DAILY nystatin 1 appl topical TID 10 days potassium chloride ER 40 mEq (4 x 10 mEq) PO DAILY 90 days prothrombin time/INR test metr (Coaguchek XS Pro) As directed prothrombin time/INR test metr (Coaguchek XS Pro) As directed torsemide 40 mg PO DAILY trazodone 50 mg PO BEDTIME PRN warfarin Take 1 tablet daily or as instructed orally; Do you need a note to return to daycare/school/sports/work: No HPI EP Infected cat bite HPI Details 82-year-old female came in today to be e valuated for infected cat bite on left for It has a young cat which is patient's personal cat and is fully vaccinated against rabies Patient is also vaccinated against tetanus Patient says that the cat wanted to play with her and patient was trying to avoid that and it bit her Couple of days ago On examination she has a erythema around the bite site which is localized about 3-4 inches in diameter I am treating her with doxycycline 100 mg b.i.d. If erythema continued to get bigger patient is to get back to us and we will add Flagyl as well She is allergic to penicillin. Review system: Patient does not have any fever chills nausea vomiting PFSH Medical History Pneumonia Chronic diastolic heart failure CHF (congestive heart failure) Thrush, oral GI bleed Occult blood positive stool Microcytic anemia Valvular heart disease Exertional dyspnea Hemorrhagic cystitis Osteopenia Toxic multinodular goiter Obesity (BMI 30-39.9) Hearing impairment Peripheral vascular disease Obesity (BMI 30-39.9) Depression Anxiety Osteoarthritis of ankle and foot Vitamin D deficiency Allergic rhinitis Anemia GERD without esophagitis Gout Hypomagnesemia Multiple thyroid nodules Pure hypercholesterolemia Benign essential hypertension PSVT (paroxysmal supraventricular tachycardia) PAC (premature atrial contraction) COPD (chronic obstructive pulmonary disease) Chronic kidney disease (CKD), stage III (moderate) Type 2 diabetes mellitus with diabetic chronic kidney disease Sciatica of right side Surgical History History of colonoscopy History of angioplasty of peripheral vessel (~08/13/20) History of biopsy History of neck surgery History of cataract surgery History of bladder surgery History of tonsillectomy and adenoidectomy History of appendectomy History of hysterectomy Family History Father Stroke CVD (cardiovascular disease) Mother CVD (cardiovascular disease) Hypertension CAD (coronary artery disease) Other Mental health disorder Social History Household Members: None Housing: Condominium Do you presently have visiting nurse or other home services: Yes (client reporting associate once per week- [facility]) Alcohol intake: current Alcohol intake frequency: holidays/special occasions only Alcohol type: beer and hard liquor Patient Tobacco Use Status: Former Tobacco user Quit Date: 1999 Tobacco use type: Cigarette Cigarette Packs Per Day: 2 Cigarettes Per Day: 40.0 Years Smoked: 40 e-Cigarette/Vaping Use: Never Used Second Hand Smoke Exposure: Yes service: No Current occupational status: retired Cognitive needs: Yes (cane) Hearing needs: Yes Vision needs: Yes Review of Systems Const All systems reviewed & are unremarkable except as noted in HPI and below Physical Exam Vital Signs: Last Vital Signs Pulse 56 10/12/23 14:08 BP 120/50 L 10/12/23 14:08 Pulse Ox 93 10/12/23 14:08 Oxygen Delivery Method Room Air 10/12/23 14:08 BMI result Body Mass Index 34.4 Const General: no acute distress Orientation/consciousness: patient oriented x3 Eyes General: appearance normal, both eyes and all related structures Resp Effort & Inspection: normal respiratory effort and able to speak in complete sentences Neuro General: patient oriented x3 Psych Mental Status: mental status grossly normal Assessment & Plan Assessment & Plan (1) Cellulitis of forearm, left: Code(s): L03.114 - Cellulitis of left upper limb (2) Cat bite of forearm: Code(s): S51.859A - Open bite of unspecified forearm, initial encounter; W55.01XA - Bitten by cat, initial encounter Qualifiers: Encounter type: initial encounter Laterality: left Qualified Code(s): S51.852A - Open bite of left forearm, initial encounter; W55.01XA - Bitten by cat, initial encounter Plan 82-year-old female came in today to be evaluated for infected cat bite on left for It has a young cat which is patient's personal cat and is fully vaccinated a gainst rabies Patient is also vaccinated against tetanus Patient says that the cat wanted to play with her and patient was trying to avoid that and it bit her Couple of days ago On examination she has a erythema around the bite site which is localized about 3-4 inches in diameter I am treating her with doxycycline 100 mg b.i.d. If erythema continued to get bigger patient is to get back to us and we will add Flagyl as well She is allergic to penicillin. Review system: Patient does not have any fever chills nausea vomiting Medications: Refilled doxycycline hyclate 100 mg PO BID 28 tabs 0RF 14 days Coding Level of Care Code Est Pt Level 4 (80258) Diagnoses Cellulitis of forearm, left L03.114 Cat bite of left forearm, initial encounter S51.852A; W55.01XA Encounter type: initial encounter Laterality: left
== END 2023-10-12 14:25 | disposition home or self-care (01) ==
PROVIDERS: PCP Internal Medicine; Visit Provider Internal Medicine
DX: L03.114 Cellulitis of left upper limb (principal); S51.852A Open bite of left forearm, initial encounter; W55.01XA Bitten by cat, initial encounter
CPT/HCPCS: 99214

== ENCOUNTER 2023-10-19 13:39 | Outpatient (REF) | payer MEDICARE, OTHER, SELFPAY ==
[2023-10-19 16:23] LABS: Anion Gap 11 (12-20); Blood Urea Nitrogen 29 mg/dL (9-16); Calcium 9.7 mg/dL (8.4-10.2); Carbon Dioxide 27 mmol/L (22-29); Chloride 106 mmol/L (96-108); Estimated Glomerular Filt Rate 45; Glucose Random 127 mg/dL (60-115); Potassium 3.4 mmol/L (3.3-5.1); Sodium 141 mmol/L (135-145)
[2023-10-24 23:53] LABS: NT-proBNP 2305 pg/mL (<450)
== END 2023-10-19 13:40 | disposition home or self-care (01) ==
LOC: HO.HMGCLDS 13:39
PROVIDERS: PCP Internal Medicine; Visit Provider Internal Medicine Cardiovascular Disease
DX: I50.32 Chronic diastolic (congestive) heart failure (principal)
CPT/HCPCS: 36415; 80048; 83880

== ENCOUNTER 2023-11-15 10:43 | Outpatient (REF) | payer MEDICARE, OTHER, SELFPAY ==
[2023-11-15 13:23] LABS: Appearance Urine Cloudy; Color Urine Yellow; Glucose Urine UA Negative (Negative); Leukocyte Esterase Urine Moderate (2+) (Negative); Nitrite Urine Negative (Negative); PH 6.5 (5.0-9.0); Specific Gravity - Urine 1.015 (1.005-1.025); UMIC TRIGGER UACC YES; Urine Blood Negative (Negative); Urine Ketones Negative (Negative); Urine Protein 30 (1+) mg/dL (Neg-Trace)
[2023-11-15 13:26] LABS: Bacteria Urine Trace (None Seen); Hyaline Casts Urine 0-2 /LPF (0-2); RBC Urine 0-2 /HPF (0-2); UACC Culture Trigger YES
[2023-11-15 13:42] LABS: MANUAL DIFF FLAG NO
[2023-11-15 13:53] LABS: Basophils Percent Auto 0.5 % (0-2); Eosinophils Absolute Auto 0.4 X10*3/uL (0.0-0.4); Eosinophils Percent Auto 4.3 % (0-4); Hematocrit 42.9 % (37.0-47.0); Hemoglobin 13.6 g/dl (12.0-16.0); Imm Gran Abs Auto 0.04 X10*3/uL (0.00-0.03); Imm Gran Pct Auto 0.5 % (0.0-0.4); Lymphocytes Absolute Auto 0.6 X10*3/uL (1.2-4.9); Lymphocytes Percent Auto 6.3 % (20-40); Mean Corpuscular HGB Conc 31.7 g/dl (31.0-35.0); Mean Corpuscular Hemoglobin 27.9 pg (27.0-33.0); Mean Corpuscular Volume 87.9 fL (80.0-98.0); Mean Platelet Volume 9.6 fL (9.4-12.3); Monocytes Absolute Auto 0.7 X10*3/uL (0.1-1.2); Monocytes Percent Auto 8.1 % (2-11); Neutrophils Absolute Auto 7.1 x10*3/uL (2.0-8.3); Neutrophils Percent Auto 80.3 % (45-73); Platelet Count 269 X10*3/uL (160-400); Red Blood Count 4.88 X10*6/uL (4.20-5.50); Red Cell Distribution Width 14.8 % (11.0-16.0); White Blood Count 8.8 X10*3/uL (4.8-10.8)
[2023-11-15 14:08] LABS: Estimated Average Glucose 131 mg/dL; Hemoglobin A1c % 6.2 % (<6.0)
[2023-11-15 14:12] LABS: Creatinine Urine 96.67 mg/dL; Microalbum/Creatinine Ratio Ur 172.7 ug/mg cr (<30)
[2023-11-15 14:16] LABS: B Type Natriuretic Peptide 496 pg/mL (<100)
[2023-11-15 14:24] LABS: Alanine Aminotransferase 15 U/L (0-31); Albumin Level 3.8 g/dL (3.5-5.0); Alkaline Phosphatase 107 U/L (39-117); Anion Gap 12 (12-20); Aspartate Amino Transferase 13 U/L (5-31); Bilirubin Total 0.5 mg/dL (0.0-1.0); Blood Urea Nitrogen 23 mg/dL (9-16); Carbon Dioxide 25 mmol/L (22-29); Chloride 107 mmol/L (96-108); Cholesterol 146 mg/dL (<200); Estimated Glomerular Filt Rate 45; Glucose Fasting 124 mg/dL (60-99); HDL Cholesterol 28 mg/dL (>40); LDL Cholesterol Calculated 91 mg/dL (<100); Potassium 3.9 mmol/L (3.3-5.1); Sodium 140 mmol/L (135-145); TSH reflex Free T4 0.63 uIU/mL (0.32-4.0); Total Protein 7.5 g/dL (6.5-8.0); Triglycerides 138 mg/dL (<150); Vitamin D 25-OH Total 37.4 ng/mL (>30)
[2023-11-15 14:43] LABS: Folate 7.8 ng/mL (> or = 4.0); Vitamin B12 > 2000 pg/mL (200-900)
== END 2023-11-15 10:44 | disposition home or self-care (01) ==
LOC: HO.HMGCLDS 10:43
PROVIDERS: PCP Internal Medicine; Visit Provider Internal Medicine
DX: E78.00 Pure hypercholesterolemia, unspecified (principal); E11.9 Type 2 diabetes mellitus without complications; I50.9 Heart failure, unspecified; D64.9 Anemia, unspecified; E55.9 Vitamin D deficiency, unspecified; E53.8 Deficiency of other specified B group vitamins; R82.90 Unspecified abnormal findings in urine
CPT/HCPCS: 36415; 80053; 80061; 81001; 82043; 82306; 82570; 82607; 82746; 83036; 83880; 84443; 85025; 87086

== ENCOUNTER 2023-11-19 12:22 | Outpatient (AMB) | payer MEDICARE, OTHER, SELFPAY ==
--- NOTE | 2023-11-19 12:43 | AM.OFFWIN_ITS ---
Intake Vital Signs 11/19/23 12:54 Height 5 ft 2 in Weight 192 lb BMI 35.1 BP 128/62 Blood Pressure Location Rt brachial Position Sitting Pulse 58 Pulse Source Pulse Oximeter Temp 97.9 F Temp Source Oral Pulse Oximetry (%) 94 Oxygen Delivery Method Room Air Intake Visit Reasons: EP ??? C Diff Intake Note: pt is here c/o diarrhea. Started 2 weeks ago . ? C-dif Patient Tobacco Use Status: Former Tobacco user Allergies Iodinated Contrast Media [IV DYE, IODINE CONTAINING CONTRAST ] Allergy (Severe, Verified 11/19/23 12:44) HIVE Penicillins [PENICILLINS] Allergy (Severe, Verified 11/19/23 12:44) HIVES Do you need a note to return to daycare/school/sports/work: No HPI HPI Comments History of Present Illness Details 82 y/o female patient who presents to [facility] with c/o diarrhea for 2 weeks. Pt does receive Meals on Wheels daily, and reports being lactose I ntolerance. Denies any diet changes recently. Denies nausea or vomiting. Denies fevers or chills. PFSH Medical History Pneumonia Chronic diastolic heart failure CHF (congestive heart failure) Thrush, oral GI bleed Occult blood positive stool Microcytic anemia Valvular heart disease Exertional dyspnea Hemorrhagic cystitis Osteopenia Toxic multinodular goiter Obesity (BMI 30-39.9) Hearing impairment Peripheral vascular disease Obesity (BMI 30-39.9) Depression Anxiety Osteoarthritis of ankle and foot Vitamin D deficiency Allergic rhinitis Anemia GERD without esophagitis Gout Hypomagnesemia Multiple thyroid nodules Pure hypercholesterolemia Benign essential hypertension PSVT (paroxysmal supraventricular tachycardia) PAC (premature atrial contraction) COPD (chronic obstructive pulmonary disease) Chronic kidney disease (CKD), stage III (moderate) Type 2 diabetes mellitus with diabetic chronic kidney disease Sciatica of right side Surgical History History of colonoscopy History of angioplasty of peripheral vessel (~08/13/20) History of biopsy History of neck surgery History of cataract surgery History of bladder surgery History of tonsillectomy and adenoidectomy History of appendectomy History of hysterectomy Family History Father Stroke CVD (cardiovascular disease) Mother CVD (cardiovascular disease) Hypertension CAD (coronary artery disease) Other Mental health disorder Social History Household Members: None Housing: Condominium Do you presently have visiting nurse or other home services: Yes (art therapy specialist once per week- [facility]) Alcohol intake: current Alcohol intake frequency: holidays/special occasions only Alcohol type: beer and hard liquor Patient Tobacco Use Status: Former Tobacco user Tobacco use type: Cigarette Cigarette Packs Per Day: 2 Cigarettes Per Day: 40.0 Years Smoked: 40 e-Cigarette/Vaping Use: Never Used Second Hand Smoke Exposure: Yes service: No Current occupational status: retired Cognitive needs: Yes (cane) Hearing needs: Yes Vision needs: Yes Review of Systems Const All systems reviewed & are unremarkable except as noted in HPI and below Physical Exam Vital Signs: Last Vital Signs Temp 97.9 F 11/19/23 12:54 Pulse 58 11/19/23 12:54 BP 128/62 11/19/23 12:54 Pulse Ox 94 11/19/23 12:54 Oxygen Delivery Method Room Air 11/19/23 12:54 BMI result Body Mass Index 35.1 Const General: comfortable and no acute distress Nutritional Appearance: obese Orientation/consciousness: patient oriented x3 GI Inspection: Yes normal to inspection and Yes obesity Palpation (GI): Soft to palpation, not firm, Tenderness to palpation present (GI), no guarding, not rigid and No hepatosplenomegaly present Auscultation: normal bowel sounds Rectal Exam - Female: deferred Neuro General: patient oriented x3, gait normal and moves all extremities Psych Speech and movement: Normal speech and movement present Assessment & Plan Assessment & Plan (1) Functional diarrhea: Code(s): K59.1 - Functional diarrhea Plan: Ordered Stool sample for culture Continue using Imodium Will call with the results. Orders: Orders Giardia Ag Stool EIA Today K59.1 - Functional diarrhea Cyclospora & Isospora Stool Today K59.1 - Functional diarrhea Chymotrypsin, Stool Today K59.1 - Functional diarrhea H pylori Ag Stool Today K59.1 - Functional diarrhea Coding Level of Care Code Est Pt Level 3 (43626) Diagnoses Functional diarrhea K59.1 Time Spent (min) 15
[2023-11-19 12:54] VITALS: BP 128/62; PULSE 58; TEMP 36.6; O2SAT 94; BMI 35.1
== END 2023-11-19 13:30 | disposition home or self-care (01) ==
PROVIDERS: PCP Internal Medicine; Visit Provider Nurse Practitioner Family
DX: K59.1 Functional diarrhea (principal)
CPT/HCPCS: 99213

== ENCOUNTER 2023-11-19 13:14 | Outpatient (REF) | payer MEDICARE, OTHER, SELFPAY ==
[2023-11-19 16:23] LABS: Anion Gap 13 (12-20); Blood Urea Nitrogen 23 mg/dL (9-16); Calcium 10.5 mg/dL (8.4-10.2); Carbon Dioxide 27 mmol/L (22-29); Chloride 104 mmol/L (96-108); Estimated Glomerular Filt Rate 45; Glucose Random 79 mg/dL (60-115); Sodium 140 mmol/L (135-145)
== END 2023-11-19 13:15 | disposition home or self-care (01) ==
LOC: HO.HMGCLDS 13:14
PROVIDERS: PCP Internal Medicine; Visit Provider Internal Medicine Cardiovascular Disease
DX: I50.32 Chronic diastolic (congestive) heart failure (principal)
CPT/HCPCS: 36415; 80048

== ENCOUNTER 2023-11-22 13:05 | Outpatient (AMB) | payer MEDICARE, OTHER, SELFPAY ==
--- NOTE | 2023-11-22 13:08 | MHC.PC.OV ---
Vital Signs 11/22/23 13:10 Height 5 ft 2 in Weight 192 lb 4 oz BMI 35.2 BP 110/68 Blood Pressure Location Lt brachial Position Sitting Pulse 58 Pulse Source Pulse Oximeter Pulse Oximetry (%) 92 Oxygen Delivery Method Room Air Intake Visit Reasons: 3mth f/u Intake Note: Patient is here to follow up on DM, CDHF, MARBELLA, Afib. [employer] Planners Required: No Scrap Metal Burner: Not Required per policy Accompanied by: Self / Same As Patient Allergies Iodinated Contrast Media [IV DYE, IODINE CONTAINING CONTRAST ] Allergy (Severe, Verified 11/22/23 13:52) HIVE Penicillins [PENICILLINS] Allergy (Severe, Verified 11/22/23 13:52) HIVES Medication List - Last Reconciled 11/22/23 by Jamel Mansfield MD allopurinol 100 mg PO DAILY 90 days atorvastatin (Lipitor) 80 mg PO DAILY cholecalciferol (vitamin D3) 50 mcg PO DAILY 90 days citalopram mg PO diltiazem HCl ER 240 mg PO DAILY ferrous sulfate (Feosol) 325 mg PO BID fluticasone furoate-vilanterol 200-25 mcg/dose (Breo Ellipta) 1 inh inhalation DAILY 30 days glimepiride 1 mg PO DAILY Incruse Ellipta 62.5 mcg/actuation (umeclidinium) 1 inh inhalation DAILY 30 days NS Januvia (sitagliptin phosphate) 100 mg PO DAILY 30 days NS lansoprazole (Prevacid) 30 mg PO DAILY@0630 magnesium 400 mg PO DAILY mecobalamin (vitamin B12) 5,000 mcg PO DAILY melatonin 10 mg PO BEDTIME PRN metoprolol succinate ER 100 mg PO DAILY 90 days mirtazapine 15 mg PO BEDTIME montelukast 10 mg PO DAILY nystatin 1 appl topical TID 10 days potassium chloride ER 50 mEq PO DAILY prothrombin time/INR test metr (Coaguchek XS Pro) As directed prothrombin time/INR test metr (Coaguchek XS Pro) As directed torsemide 40 mg PO DAILY trazodone 50 mg PO BEDTIME PRN warfarin Take 1 tablet daily or as instructed orally; Tobacco use date assessed: 11/22/23 Fall risk assessment: No Falls in past year Last assessed Fall Risk: 11/22/23 Dental Screening Dental Screen Date: 08/12/23 HPI 3mth f/u HPI Details Patient comes in today for her follow up visit States that she has had constant diarrhea/watery and loose stools for the past 2 weeks She was treated with oral Doxycycline x 2 weeks (for a cat bite) prior to the onset of her diarrhea, which she states started a week after she finished her Abx She went to the walk-in a few days ago for the same complaint and was sent for some stool work ups, which patient has not done yet States that she was advised that C diff colitis, which she is concerned about, is not a likely possibility due to the presentation of her symptoms Patient denies any nausea, vomiting or abdominal pain lately and states that she has not noticed any blood in her stool She denies any fever or chills and states that she has not traveled anywhere recently She denies any chest pains, no increased shortness of breath Patient adds that she has been experiencing occasional symptoms of low blood sugar lately, which she confirms what when she checks her blood sugar, and she has had to drink something with sugar to compensate for and address her symptoms Adds that she has a small cyst on her left wrist that she just noticed recently - relates (+) mild pain over the cyst when she bends her wrist or when she applies pressure on the cyst She had her follow up labs done last week - to discuss her results [facility] Medical History Pneumonia Chronic diastolic heart failure CHF (congestive heart failure) Thrush, oral GI bleed Occult blood positive stool Microcytic anemia Valvular heart disease Exertional dyspnea Hemorrhagic cystitis Osteopenia Toxic multinodular goiter Obesity (BMI 30-39.9) Hearing impairment Peripheral vascular disease Obesity (BMI 30-39.9) Depression Anxiety Osteoarthritis of ankle and foot Vitamin D deficiency Allergic rhinitis Anemia GERD without esophagitis Gout Hypomagnesemia Multiple thyroid nodules Pure hypercholesterolemia Benign essential hypertension PSVT (paroxysmal supraventricular tachycardia) PAC (premature atrial contraction) COPD (chronic obstructive pulmonary disease) Chronic kidney disease (CKD), stage III (moderate) Type 2 diabetes mellitus with diabetic chronic kidney disease Sciatica of right side Surgical History History of colonoscopy History of angioplasty of peripheral vessel (~08/13/20) History of biopsy History of neck surgery History of cataract surgery History of bladder surgery History of tonsillectomy and adenoidectomy History of appendectomy History of hysterectomy Family History Father Stroke CVD (cardiovascular disease) Mother CVD (cardiovascular disease) Hypertension CAD (coronary artery disease) Other Mental health disorder Social History Household Members: None Housing: Condominium Do you presently have visiting nurse or other home services: Yes (store coordinator once per week- [facility]) Alcohol intake: current Alcohol intake frequency: holidays/special occasions only Alcohol type: beer and hard liquor Patient Tobacco Use Status: Former Tobacco user Tobacco use type: Cigarette Cigarette Packs Per Day: 2 Cigarettes Per Day: 40.0 Years Smoked: 40 e-Cigarette/Vaping Use: Never Used Second Hand Smoke Exposure: Yes service: No Current occupational status: retired Cognitive needs: Yes (cane) Hearing needs: Yes Vision needs: Yes Questionnaire Thrive Questionnaire Date Thrive assessed: 08/12/23 ABEL-7 AMB Questionnaire ABEL-7 Date ABEL - 7 assessed: 08/12/23 Source: Developed by Drs. Steven Hebert, Ursula Watson, Jared Joshi and colleagues, with an educational fredrick from [email or web address]. Review of Systems Const Denies chills, Reports fatigue, Denies fever(s) and Denies headache(s) ENT Denies dysphagia, Denies dizziness, Denies otalgia, Denies headache(s), Denies odynophagia and Denies sore throat Card Denies chest pain, Reports claudication (mild), Denies palpitations and Reports dyspnea on exertion (mild) Resp Denies cough, Reports dyspnea on exertion (mild) and Denies wheezing GI Denies abdominal pain, Denies hematochezia, Denies dysphagia, Denies heartburn, Reports diarrhea (for the past 2 weeks), Reports loose stools (frequent), Denies nausea, Denies odynophagia and Denies vomiting Denies difficulty voiding, Denies nocturia, Denies dysuria and Denies urinary urgency Musc Reports back pain (recurrent), Reports arthralgias (right hip, on and off) and Reports radiating pain into limb (down into right leg) Skin/Breast Denies rash Neuro Denies dizziness and Denies headache(s) Endo Reports fatigue and Denies palpitations Sean/Lymph Details: (+) recurrent pain/claudication over her left lower extremity Aller/Immun Denies wheezing Physical exam (Primary Care) Vital Signs: Last Vital Signs Pulse 58 11/22/23 13:10 BP 110/68 11/22/23 13:10 Pulse Ox 92 11/22/23 13:10 Oxygen Delivery Method Room Air 11/22/23 13:10 BMI result Body Mass Index 35.2 Tobacco/Smoking Status: Tobacco use Status Tobacco use date assessed 11/22/23 11/22/23 13:17 Patient Tobacco Use Status Former Tobacco user 11/22/23 13:17 Tobacco use type Cigarette 11/22/23 13:17 e-Cigarette/Vaping Use Never Used 11/22/23 13:17 Thrive Assessment: Date of Thrive Assessment Date Thrive assessed 08/12/23 11/22/23 13:17 Const General: no acute distress and alert HENMT Ears: TM's normal bilaterally and EAC's normal Throat: Yes posterior oropharynx normal and Yes tonsils normal (no TP congestion noted) Neck Neck: Yes no lymphadenopathy and Yes supple Resp Auscultation: clear to auscultation bilaterally, no rales and no wheezes Cardio Rate: regular rate Rhythm: regular rhythm Heart sounds: Murmur heart sound present diastolic blowing and at the apex and systolic III/ and at the base GI Palpation (GI): Soft to palpation and nontender Auscultation: normal bowel sounds General: Yes no CVA tenderness Back/Spine/Pelvis Back: no CVA tenderness Thoracic/Lumbar Spine: lumbar spinal tenderness Skin Rashes: no rashes Extrem General: Yes no clubbing, cyanosis or edema Results Reviewed Results Reviewed: Laboratory Tests 08/02/23 11/15/23 11/19/23 10:32 11:10 13:29 WBC 8.8 Hgb 13.6 Plt Count 269 Sodium 140 Potassium 4.0 Creatinine 1.15 Estimated GFR 45 Fasting Glucose 124 H Hemoglobin A1c % 6.2 H Calcium 10.5 H AST 13 ALT 15 B-Natriuretic Peptide 496 H Triglycerides 138 Cholesterol 146 LDL Cholesterol, Calc 91 HDL Cholesterol 28 L Vitamin B12 > 2000 H 25-OH Vitamin D Total 37.4 TSH 0.63 Free T4 1.24 Assessment and Plan Assessment & Plan (1) Diarrhea: Code(s): R19.7 - Diarrhea, unspecified Qualifiers: Diarrhea type: unspecified type Qualified Code(s): R19.7 - Diarrhea, unspecified Plan: Ongoing for 2 weeks now She was seen at the walk-in a few days ago for the same complaint and was sent for some stool work ups, which she has not yet done Patient has had on and off diarrhea previously and I suspect that her diarrhea is more of a functional diarrhea or due to some malabsorption syndrome She reports taking oral Doxycycline for a couple of weeks last month prior to the onset of her diarrhea so we cannot entirely rule out the possibility of C diff colitis - will send her for further workup on this She is instructed to also complete her previously ordered stool workups as soon as possible She is reminded to make sure she stays hydrated, especially if she is still experiencing diarrhea frequently (2) Pure hypercholesterolemia: Code(s): E78.00 - Pure hypercholesterolemia, unspecified Plan: Results of her labs done a few days ago reviewed and discussed with patient Reinforced low cholesterol diet Continue Atorvastatin 40 mg QD Will recheck her labs and fasting lipids in 3 months for follow up (3) Type 2 diabetes mellitus with diabetic chronic kidney disease: Code(s): E11.22 - Type 2 diabetes mellitus with diabetic chronic kidney disease Qualifiers: Chronic kidney disease stage: stage 3 (moderate) Chronic kidney disease stage 3 subtype: stage 3a (GFR 45-59) 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 Qualified Code(s): E11.21 - Type 2 diabetes mellitus with diabetic nephropathy; N18.31 - Chronic kidney disease, stage 3a Plan: Her HgbA1c is at 6.2% on her labs done a few days ago (was at 5.6% previously) - goal is at least <7.0% Reinforced diabetic diet Continue Januvia 100 mg QD (could not tolerate Metformin / Metformin ER due to diarrhea) She is also currently on Glimepiride 1 mg QD but as she reports experiencing recurrent low blood sugar readings with associated symptoms recently, will have her start taking her Glimepiride at this time Will consider switching her over to an SGLT2 inhibitor like Farxiga for their cardiac and renal benefits (if appropriate) later on once her current issues have been resolved Will recheck her labs and HgbA1c in 3 months for follow up (4) Chronic kidney disease (CKD), stage III (moderate): Code(s): N18.30 - Chronic kidney disease, stage 3 unspecified Qualifiers: Chronic kidney disease stage 3 subtype: stage 3a (GFR 45-59) Qualified Code(s): N18.31 - Chronic kidney disease, stage 3a Plan: Stable lately Her Valsartan was discontinued when she reportedly developed some MARBELLA while she was admitted to the hospital a few months ago Will continue to monitor her GFR and serum creatinine regularly (5) Chronic diastolic heart failure: Comment: SHE IS BEING FOLLOWED BY CARDIOLOGY REGULARLY, AND BEING TREATED FOR CHRONIC DIASTOLIC CONGESTIVE HEART FAILURE. I THINK HER CARDIAC FUNCTION HAS DETERIORATED WHICH ACCOUNTS FOR HER INCREASED SHORTNESS OF BREATH. Code(s): I50.32 - Chronic diastolic (congestive) heart failure Plan: Continue Torsemide 40 mg QD Reinforced fluid restriction Follow up with cardiology as scheduled (6) Valvular heart disease: Code(s): I38 - Endocarditis, valve unspecified Plan: Previous echocardiogram done on 01/14/2021 revealed (+) normal LV size and function, with hyperdynamic EF of >70%; left atrium is severely dilated, with moderate AR and moderate as well as moderate MR and severe MS and mild pulmonary hypertension - these changes appear to be worse compared to previous findings Repeat echocardiogram done on 07/17/2021 revealed that findings are mostly unchanged from 2020 but the gradient across the mitral valve is slightly less and PA pressures have improved and the gradient across the aortic valve is also slightly improved She reportedly had a normal cardiac cath done at [facility] back in August 2022 She has also been advised that she will be potentially requiring valve replacement or repair of her mitral and aortic valve - patient does not feel she is ready for either yet at this time Follow up with cardiology as scheduled - used to see Dr. Ajay Hannah but is now seeing a new forepart reducer (Dr. Nance) (7) Benign essential hypertension: Code(s): I10 - Essential (primary) hypertension Plan: Reinforced low-sodium diet - goal is systolic BP of at least 140 to 150 mm or less Continue Metoprolol ER 100 mg QD Valsartan 160 mg QD was discontinued while she was in the hospital a few months ago due to MARBELLA (8) COPD (chronic obstructive pulmonary disease): Comment: SHE HAS MODERATELY SEVERE ASTHMA/COPD. WITH THE CURRENT COMBINATION SHE IS FEELING BETTER. SHE HAS NOT REQUIRING ANY NEED FOR RESCUE INHALER. Code(s): J44.9 - Chronic obstructive pulmonary disease, unspecified Qualifiers: COPD type: unspecified COPD Qualified Code(s): J44.9 - Chronic obstructive pulmonary disease, unspecified Plan: Stable Continue Advair Diskus 250-50 mcg 1 inhalation BID, Incruse Ellipta 62.5 mcg 1 inhalation QD and Albuterol HFA 108 mcg 2 puffs 4 times a day as needed Follow up with pulmonary as scheduled - sees Dr. Cardona (9) PSVT (paroxysmal supraventricular tachycardia): Code(s): I47.1 - Supraventricular tachycardia Plan: Currently controlled on Diltiazem ER Follow-up with cardiology as scheduled (10) PAC (premature atrial contraction): Code(s): I49.1 - Atrial premature depolarization Plan: This has been better controlled on Diltiazem lately - continue Diltiazem ER 240 mg QD Follow-up with cardiology as scheduled (11) Peripheral vascular disease: Comment: S/P angioplasty of left lower extremity in July 2020 Code(s): I73.9 - Peripheral vascular disease, unspecified Plan: S/P angioplasty although patient did not feel that her surgery helped a lot Was on dual antiplatelet therapy with low dose Aspirin 81 mg QD and Clopidogrel 75 mg QD previously but is now just on Clopidogrel (Aspirin was discontinued due to GI bleed and profound anemia) Follow up with vascular surgery as scheduled (12) Toxic multinodular goiter: Code(s): E05.20 - Thyrotoxicosis with toxic multinodular goiter without thyrotoxic crisis or storm Plan: Her TFTs were normal on her recent labs Follow-up with endocrinology as scheduled - FNA Bx done on 06/17/2017 came out benign Ultrasound done last year came back unchanged and recommendation is to just continue with yearly ultrasound for continuing surveillance (13) Anemia: Code(s): D64.9 - Anemia, unspecified Qualifiers: Anemia type: unspecified type Qualified Code(s): D64.9 - Anemia, unspecified Plan: H/H have improved/corrected and have remained normal on her recent labs Was most likely due to GI bleeding related to her previous dual antiplatelet therapy and she required blood transfusion of 2 units of PRBC in January 2021 and 1 more unit in April 2021; also s/p IV iron in March 2021 Continue Ferrous Sulfate 325 mg BID Follow up with hematology as scheduled (14) Chronic low back pain with right-sided sciatica: Code(s): M54.41 - Lumbago with sciatica, right side; G89.29 - Other chronic pain Qualifiers: Back pain laterality: right Qualified Code(s): M54.41 - Lumbago with sciatica, right side; G89.29 - Other chronic pain Plan: Lumbar spine x-rays done back in April 2022 revealed (+) multilevel lumbar spondylosis and facet arthritis, with no acute changes or fractures noted Reinforced activity and weight-lifting restrictions Will consider referring to pain management if her low back pain progresses (15) Ganglion cyst of volar aspect of left wrist: Code(s): M67.432 - Ganglion, left wrist Plan: Will refer her to orthopedics for further evaluation and management (16) Hypomagnesemia: Code(s): E83.42 - Hypomagnesemia Plan: Corrected on her previous labs - will continue to monitor regularly (17) Gout: Code(s): M10.9 - Gout, unspecified Qualifiers: Chronicity: unspecified Gout etiology: unspecified cause Gout site: unspecified site Qualified Code(s): M10.9 - Gout, unspecified Plan: Asymptomatic; her serum uric acid level has increased slightly to 7.6 when last checked Reinforced low purine diet Continue Colcrys 0.6 mg twice a day, Indomethacin 25 mg twice a day with food as needed (18) GERD without esophagitis: Code(s): K21.9 - Gastro-esophageal reflux disease without esophagitis Plan: Dietary restrictions reinforced Continue Lansoprazole 30 mg daily; may take some OTC Famotidine 20 mg PRN for symptomatic relief Follow-up with GI as scheduled (19) Vitamin D deficiency: Code(s): E55.9 - Vitamin D deficiency, unspecified Plan: Continue Vitamin D3 5000 units once a day (20) Anxiety: Code(s): F41.9 - Anxiety disorder, unspecified Plan: States that her Citalopram is helping with her anxiety (21) Depression: Code(s): F32.9 - Major depressive disorder, single episode, unspecified Qualifiers: Active/Remission status: currently active Depression Type: major depressive disorder Major depression episode severity: unspecified Major depression recurrence: recurrent Qualified Code(s): F33.9 - Major depressive disorder, recurrent, unspecified Plan: Continue Citalopram 40 mg QD and Mirtazapine 15 mg Q HS Follow-up with Psychiatry as scheduled - is now seeing a nurse practitioner as her previous psychiatrist retired from active practice (22) Obesity (BMI 30-39.9): Comment: SHE IS MODERATELY OBESE, AND IS NOT ABLE TO LOSE MUCH WEIGHT. Code(s): E66.9 - Obesity, unspecified Plan: Reinforced diet; exercise and weight loss are unrealistic in this patient as she is currently experiencing a lot of vascular symptoms and has multiple comorbidities that significantly limits her activity and exercise tolerance Plan Follow up in 3 months Orders: Orders Complete Blood Count Auto Diff 3 Months D64.9 - Anemia, unspecified Comprehensive [place]. Panel Fast 3 Months E78.00 - Pure hypercholesterolemia, unspecified Lipid Panel 3 Months E78.00 - Pure hypercholesterolemia, unspecified TSH reflex Free T4 3 Months E78.00 - Pure hypercholesterolemia, unspecified UA CC w/rflx Micro + Cult 3 Months R30.0 - Dysuria Vitamin B12 and Folate 3 Months E53.8 - Deficiency of other specified B group vitamins Vitamin D 25-OH Total 3 Months E55.9 - Vitamin D deficiency, unspecified Magnesium 3 Months E83.42 - Hypomagnesemia CDiff Gene PCR 11/22/23 R19.7 - Diarrhea, unspecified Hemoglobin A1c 3 Months E11.9 - Type 2 diabetes mellitus without complications Microalbumin, Random (w Creat) 3 Months E11.9 - Type 2 diabetes mellitus without complications Uric Acid 3 Months M10.9 - Gout, unspecified Referrals Orthopedics Referral M67.432 - Ganglion, left wrist Medications: Changed From potassium chloride ER 40 mEq (4 x 10 mEq) PO DAILY 90 days 360 caps 0RF I50.32 - Chronic diastolic (congestive) heart failure To potassium chloride ER 50 mEq PO DAILY I50.32 - Chronic diastolic (congestive) heart failure Discontinued glimepiride administer with breakfast Discontinued Reason: Doctor's Order 1 mg PO DAILY 90 tabs 1RF Coding Level of Care Code Est Pt Level 4 (52490) Complex EM visit Add On G2211 Diagnoses Diarrhea, unspecified type R19.7 Diarrhea type: unspecified type Pure hypercholesterolemia E78.00 Type 2 diabetes mellitus with stage 3a chronic kidney disease, without long-term current use of insulin E11.21; N18.31 Chronic kidney disease stage: stage 3 (moderate) Chronic kidney disease stage 3 subtype: stage 3a (GFR 45-59) Diabetes mellitus jail insulin use: without jail use Stage 3a chronic kidney disease N18.31 Chronic kidney disease stage 3 subtype: stage 3a (GFR 45-59) Chronic diastolic heart failure I50.32 Valvular heart disease I38 Benign essential hypertension I10 Chronic obstructive pulmonary disease, unspecified COPD type J44.9 COPD type: unspecified COPD PSVT (paroxysmal supraventricular tachycardia) I47.1 PAC (premature atrial contraction) I49.1 Peripheral vascular disease I73.9 Toxic multinodular goiter E05.20 Anemia, unspecified type D64.9 Anemia type: unspecified type Chronic right-sided low back pain with right-sided sciatica M54.41; G89.29 Back pain laterality: right Ganglion cyst of volar aspect of left wrist M67.432 Hypomagnesemia E83.42 Gout, unspecified cause, unspecified chronicity, unspecified site M10.9 Chronicity: unspecified Gout etiology: unspecified cause Gout site: unspecified site GERD without esophagitis K21.9 Vitamin D deficiency E55.9 Anxiety F41.9 Episode of recurrent major depressive disorder, unspecified depression episode severity F33.9 Active/Remission status: currently active Depression Type: major depressive disorder Major depression episode severity: unspecified Major depression recurrence: recurrent Obesity (BMI 30-39.9) E66.9
[2023-11-22 13:10] VITALS: BP 110/68; PULSE 58; O2SAT 92; BMI 35.2
== END 2023-11-22 14:08 | disposition home or self-care (01) ==
PROVIDERS: PCP Internal Medicine; Visit Provider Internal Medicine
DX: R19.7 Diarrhea, unspecified (principal); E11.22 Type 2 diabetes mellitus with diabetic chronic kidney disease; N18.31 Chronic kidney disease, stage 3a; E78.00 Pure hypercholesterolemia, unspecified; I38 Endocarditis, valve unspecified; I10 Essential (primary) hypertension; I47.10 Supraventricular tachycardia, unspecified; I49.1 Atrial premature depolarization; E05.20 Thyrotoxicosis with toxic multinodular goiter without thyrotoxic crisis or storm; D64.9 Anemia, unspecified; M54.41 Lumbago with sciatica, right side; G89.29 Other chronic pain; M67.432 Ganglion, left wrist; E83.42 Hypomagnesemia; M10.9 Gout, unspecified; K21.9 Gastro-esophageal reflux disease without esophagitis; E55.9 Vitamin D deficiency, unspecified; F41.9 Anxiety disorder, unspecified
CPT/HCPCS: 99214

== ENCOUNTER 2023-11-23 13:57 | Outpatient (REF) | payer MEDICARE, OTHER, SELFPAY ==
[2023-11-23 15:08] LABS: CDiff Gene PCR NEGATIVE (Negative)
[2023-12-03 01:12] LABS: Chymotrypsin, Stool 3.7 U/g (2.3-51.4)
== END 2023-11-23 13:58 | disposition home or self-care (01) ==
LOC: HO.LNP 13:57
PROVIDERS: Referring Provider Internal Medicine; Visit Provider Nurse Practitioner Family
DX: K59.1 Functional diarrhea (principal)
CPT/HCPCS: 87015; 87207; 87329; 87338; 87493

== ENCOUNTER 2023-12-02 15:37 | Outpatient (REF) | payer MEDICARE, OTHER, SELFPAY ==
[2023-12-09 03:43] LABS: Chymotrypsin, Stool 1.9 U/g (2.3-51.4)
== END 2023-12-02 15:38 | disposition home or self-care (01) ==
LOC: HO.LNP 15:37
PROVIDERS: Visit Provider Nurse Practitioner Family
DX: Z13.89 Encounter for screening for other disorder (principal)

== ENCOUNTER 2023-12-15 14:52 | Outpatient (REF) | payer MEDICARE, OTHER, SELFPAY ==
[2023-12-15 16:17] LABS: Leukocytes Stool Qualitative NEGATIVE (NEGATIVE)
[2023-12-15 16:20] LABS: CDiff Gene PCR NEGATIVE (Negative)
[2023-12-16 11:09] LABS: Adenovirus F 40/41 Not Detected (Not Detect.); Astrovirus Not Detected (Not Detect.); Campylobacter Not Detected (Not Detect.); Cryptosporidium Not Detected (Not Detect.); Cyclospora cayetanensis Not Detected (Not Detect.); E. coli EAEC Not Detected (Not Detect.); E. coli EPEC Detected (Not Detect.); E. coli ETEC Not Detected (Not Detect.); E. coli STEC Not Detected (Not Detect.); Entamoeba histolytica Not Detected (Not Detect.); Giardia lamblia Not Detected (Not Detect.); Norovirus GI/GII Not Detected (Not Detect.); Plesiomonas shigelloides Not Detected (Not Detect.); Rotavirus A Not Detected (Not Detect.); Salmonella Not Detected (Not Detect.); Sapovirus Not Detected (Not Detect.); Shigella sp./EIEC Not Detected (Not Detect.); Vibrio Not Detected (Not Detect.); Vibrio Cholerae Not Detected (Not Detect.); Yersinia enterocolitica Not Detected (Not Detect.)
[2023-12-21 23:28] LABS: Fecal Fat Qualitative Normal (Normal)
[2023-12-23 22:14] LABS: Calprotectin, Fecal 126 mcg/g
[2023-12-25 00:44] LABS: Pancreatic Elastase-1 123 mcg/g
== END 2023-12-15 14:53 | disposition home or self-care (01) ==
LOC: HO.LNP 14:52
PROVIDERS: Visit Provider Internal Medicine
DX: K52.9 Noninfective gastroenteritis and colitis, unspecified (principal)
CPT/HCPCS: 82656; 82705; 83519; 83993; 87177; 87209; 87493; 87507; 89055

== ENCOUNTER 2024-02-14 12:15 | Outpatient (REF) | payer MEDICARE, OTHER, SELFPAY ==
[2024-02-14 14:08] LABS: Anion Gap 13 (12-20); Blood Urea Nitrogen 28 mg/dL (9-16); Calcium 9.7 mg/dL (8.4-10.2); Carbon Dioxide 26 mmol/L (22-29); Chloride 104 mmol/L (96-108); Estimated Glomerular Filt Rate 37; Glucose Random 181 mg/dL (60-115); Potassium 3.3 mmol/L (3.3-5.1); Sodium 140 mmol/L (135-145)
[2024-02-18 05:24] LABS: NT-proBNP 1595 pg/mL (<450)
== END 2024-02-14 12:16 | disposition home or self-care (01) ==
LOC: HO.HMGCLDS 12:15
PROVIDERS: PCP Internal Medicine; Visit Provider Internal Medicine Cardiovascular Disease
DX: I50.32 Chronic diastolic (congestive) heart failure (principal)
CPT/HCPCS: 36415; 80048; 83880

== ENCOUNTER 2024-03-03 11:10 | Outpatient (REF) | payer MEDICARE, OTHER, SELFPAY ==
[2024-03-03 13:15] LABS: MANUAL DIFF FLAG NO
[2024-03-03 13:20] LABS: Basophils Percent Auto 0.5 % (0-2); Eosinophils Absolute Auto 0.3 X10*3/uL (0.0-0.4); Eosinophils Percent Auto 3.8 % (0-4); Hematocrit 44.9 % (37.0-47.0); Hemoglobin 14.8 g/dl (12.0-16.0); Imm Gran Abs Auto 0.04 X10*3/uL (0.00-0.03); Imm Gran Pct Auto 0.5 % (0.0-0.4); Lymphocytes Absolute Auto 0.6 X10*3/uL (1.2-4.9); Lymphocytes Percent Auto 6.9 % (20-40); Mean Corpuscular Hemoglobin 28.7 pg (27.0-33.0); Mean Corpuscular Volume 87.2 fL (80.0-98.0); Mean Platelet Volume 9.7 fL (9.4-12.3); Monocytes Absolute Auto 0.6 X10*3/uL (0.1-1.2); Monocytes Percent Auto 8.1 % (2-11); Neutrophils Absolute Auto 6.4 x10*3/uL (2.0-8.3); Neutrophils Percent Auto 80.2 % (45-73); Platelet Count 268 X10*3/uL (160-400); Red Blood Count 5.15 X10*6/uL (4.20-5.50); Red Cell Distribution Width 14.9 % (11.0-16.0); White Blood Count 7.9 X10*3/uL (4.8-10.8)
[2024-03-03 13:23] LABS: Appearance Urine Clear; Color Urine Yellow; Glucose Urine UA Negative (Negative); Leukocyte Esterase Urine Moderate (2+) (Negative); Nitrite Urine Negative (Negative); PH 5.5 (5.0-9.0); Specific Gravity - Urine 1.015 (1.005-1.025); UMIC TRIGGER UACC YES; Urine Blood Negative (Negative); Urine Ketones Negative (Negative); Urine Protein Trace mg/dL (Neg-Trace)
[2024-03-03 13:29] LABS: Bacteria Urine Trace (None Seen); Hyaline Casts Urine 0-2 /LPF (0-2); RBC Urine 0-2 /HPF (0-2); UACC Culture Trigger YES
[2024-03-03 13:40] LABS: Creatinine Urine 96.38 mg/dL; Microalbum/Creatinine Ratio Ur 90.2 ug/mg cr (<30)
[2024-03-03 13:47] LABS: Estimated Average Glucose 146 mg/dL; Hemoglobin A1C 185.3689 umol/L; Hemoglobin A1c % 6.7 % (<6.0); Total Hemoglobin (HGBA1C) 3718.5839 umol/L
[2024-03-03 13:49] LABS: Alanine Aminotransferase 16 U/L (0-31); Albumin Level 4.1 g/dL (3.5-5.0); Alkaline Phosphatase 88 U/L (39-117); Anion Gap 15 (12-20); Aspartate Amino Transferase 14 U/L (5-31); Bilirubin Total 0.4 mg/dL (0.0-1.0); Blood Urea Nitrogen 41 mg/dL (9-16); Calcium 9.9 mg/dL (8.4-10.2); Carbon Dioxide 24 mmol/L (22-29); Chloride 103 mmol/L (96-108); Cholesterol 149 mg/dL (<200); Estimated Glomerular Filt Rate 34; Glucose Fasting 160 mg/dL (60-99); HDL Cholesterol 27 mg/dL (>40); LDL Cholesterol Calculated 99 mg/dL (<100); Magnesium 1.9 mg/dL (1.6-2.6); Potassium 4.4 mmol/L (3.3-5.1); Sodium 138 mmol/L (135-145); Total Protein 7.6 g/dL (6.5-8.0); Triglycerides 117 mg/dL (<150); Uric Acid 9.3 mg/dL (2.4-5.7)
[2024-03-03 14:07] LABS: TSH reflex Free T4 0.35 uIU/mL (0.32-4.0); Vitamin D 25-OH Total 40.7 ng/mL (>30)
[2024-03-03 14:27] LABS: Folate 10.3 ng/mL (> or = 4.0); Vitamin B12 > 2000 pg/mL (200-900)
== END 2024-03-03 11:11 | disposition home or self-care (01) ==
LOC: HO.HMGCLDS 11:10
PROVIDERS: PCP Internal Medicine; Referring Provider Internal Medicine Cardiovascular Disease; Visit Provider Internal Medicine
DX: I50.32 Chronic diastolic (congestive) heart failure (principal); D64.9 Anemia, unspecified; E78.00 Pure hypercholesterolemia, unspecified; E53.8 Deficiency of other specified B group vitamins; E11.9 Type 2 diabetes mellitus without complications; M10.9 Gout, unspecified; E83.42 Hypomagnesemia; R30.0 Dysuria
CPT/HCPCS: 36415; 80053; 80061; 81001; 82043; 82306; 82570; 82607; 82746; 83036; 83735; 84443; 84550; 85025; 87086

== ENCOUNTER 2024-03-17 13:59 | Outpatient (AMB) | payer MEDICARE, OTHER, SELFPAY ==
[2024-03-17 14:19] VITALS: BP 108/64; PULSE 55; O2SAT 95; BMI 34.2
--- NOTE | 2024-03-17 14:19 | A.OFFPC_ITS ---
Vital Signs 03/17/24 14:19 Height 5 ft 2 in Weight 187 lb BMI 34.2 BP 108/64 Blood Pressure Location Lt brachial Position Sitting Pulse 55 Pulse Source Pulse Oximeter Pulse Oximetry (%) 95 Oxygen Delivery Method Room Air Intake Visit Reasons: 3 Month F/U Dianetic Counselor Required: No Accompanied by: Self / Same As Patient Allergies Iodinated Contrast Media [IV DYE, IODINE CONTAINING CONTRAST ] Allergy (Severe, Verified 03/17/24 15:09) HIVE Penicillins [PENICILLINS] Allergy (Severe, Verified 03/17/24 15:09) HIVES Medication List - Last Reconciled 03/17/24 by Jamel Mansfield MD allopurinol 100 mg PO DAILY 90 days atorvastatin (Lipitor) 80 mg PO DAILY cholecalciferol (vitamin D3) 50 mcg PO DAILY 90 days citalopram mg PO diltiazem HCl ER 240 mg PO DAILY diphenoxylate-atropine 2.5-0.025 mg tabs PO ferrous sulfate (Feosol) 325 mg PO BID fluticasone furoate-vilanterol 200-25 mcg/dose (Breo Ellipta) 1 ea inhalation DAILY Incruse Ellipta 62.5 mcg/actuation (umeclidinium) 1 inh inhalation DAILY 30 days NS Januvia (sitagliptin phosphate) 100 mg PO DAILY 30 days NS lansoprazole (Prevacid) 30 mg PO DAILY@0630 magnesium 400 mg PO DAILY mecobalamin (vitamin B12) 5,000 mcg PO DAILY melatonin 10 mg PO BEDTIME PRN metoprolol succinate ER 100 mg PO DAILY 90 days mirtazapine 15 mg PO BEDTIME montelukast 10 mg PO DAILY nystatin 1 appl topical TID 10 days potassium chloride ER 50 mEq PO DAILY prothrombin time/INR test metr (Coaguchek XS Pro) As directed prothrombin time/INR test metr (Coaguchek XS Pro) As directed spironolactone 25 mg PO DAILY torsemide 40 mg PO DAILY trazodone 50 mg PO BEDTIME PRN warfarin Take 1 tablet daily or as instructed orally; Tobacco use date assessed: 11/22/23 Fall risk assessment: No Falls in past year Last assessed Fall Risk: 03/17/24 Dental Screening Dental Screen Date: 08/12/23 HPI 3 Month F/U HPI Details Patient comes in today for her follow up visit States that she has been experiencing increasing pain over her lower back lately that often radiates down her right leg - states that she can now only stand for a few minutes before she has to go sit or lie down due to her increasing low back pain Relates increased right-sided sciatica pain lately Adds that she also has frequent pain in her right shoulder (especially over the back of the shoulder) that radiates down to her right elbow area Adds that she has also been breaking out in increased itching and a recurrent rash under her breasts and that the Nystatin powder that she has is not getting into these areas and she would like to get the topical Nystatin cream Rx instead She denies any headaches or dizziness Denies any chest pains, no increased SOB No nausea/vomiting, no abdominal pain No change in bowel habits noted She had her follow up labs done a couple of weeks ago - to discuss her results Would also like to get her flu shot today [facility] Medical History (Updated 03/19/24 @ 04:11 by Jamel Mansfield MD) Pneumonia Chronic diastolic heart failure CHF (congestive heart failure) Thrush, oral GI bleed Occult blood positive stool Microcytic anemia Valvular heart disease Exertional dyspnea Hemorrhagic cystitis Osteopenia Toxic multinodular goiter Obesity (BMI 30-39.9) Hearing impairment Peripheral vascular disease Obesity (BMI 30-39.9) Depression Anxiety Osteoarthritis of ankle and foot Vitamin D deficiency Allergic rhinitis Anemia GERD without esophagitis Gout Hypomagnesemia Multiple thyroid nodules Pure hypercholesterolemia Benign essential hypertension PSVT (paroxysmal supraventricular tachycardia) PAC (premature atrial contraction) COPD (chronic obstructive pulmonary disease) Chronic kidney disease (CKD), stage III (moderate) Type 2 diabetes mellitus with diabetic chronic kidney disease Sciatica of right side Surgical History History of colonoscopy History of angioplasty of peripheral vessel (~08/13/20) History of biopsy History of neck surgery History of cataract surgery History of bladder surgery History of tonsillectomy and adenoidectomy History of appendectomy History of hysterectomy Family History Father Stroke CVD (cardiovascular disease) Mother CVD (cardiovascular disease) Hypertension CAD (coronary artery disease) Other Mental health disorder Social History Household Members: None Housing: Condominium Do you presently have visiting nurse or other home services: Yes (inserting operator once per week- [facility]) Alcohol intake: current Alcohol intake frequency: holidays/special occasions only Alcohol type: beer and hard liquor Patient Tobacco Use Status: Former Tobacco user Tobacco use type: Cigarette Cigarette Packs Per Day: 2 Cigarettes Per Day: 40.0 Years Smoked: 40 e-Cigarette/Vaping Use: Never Used Second Hand Smoke Exposure: Yes service: No Current occupational status: retired Cognitive needs: Yes (cane) Hearing needs: Yes Vision needs: Yes Questionnaire Thrive Questionnaire Date Thrive assessed: 08/12/23 ABEL-7 AMB Questionnaire ABEL-7 Date ABEL - 7 assessed: 08/12/23 Source: Developed by Drs. Steven Hebert, Ursula Watson, Jared Joshi and colleagues, with an educational fredrick from [employer]. Review of Systems Const Denies chills, Reports fatigue, Denies fever(s) and Denies headache(s) ENT Denies dysphagia, Denies dizziness, Denies otalgia, Denies headache(s), Denies neck pain, Denies odynophagia and Denies sore throat Card Denies chest pain, Reports claudication, Denies palpitations and Reports dyspnea on exertion (mild) Resp Denies chest congestion, Denies cough and Reports dyspnea on exertion (mild) GI Denies abdominal pain, Denies hematochezia, Denies dysphagia, Denies heartburn, Denies diarrhea, Reports loose stools (occasionally), Denies nausea, Denies odynophagia and Denies vomiting Denies difficulty voiding, Denies nocturia, Denies dysuria and Denies urinary urgency Musc Reports back pain (increasing), Reports arthralgias (right hip, on and off; more recently, increasing pain in R shoulder), Denies neck pain and Reports radiating pain into limb (down into right leg) Skin/Breast Denies rash Neuro Denies dizziness and Denies headache(s) Endo Reports fatigue and Denies palpitations Sean/Lymph Details: (+) recurrent pain/claudication over her left lower extremity Physical exam (Primary Care) Vital Signs: Last Vital Signs Pulse 55 03/17/24 14:19 BP 108/64 03/17/24 14:19 Pulse Ox 95 03/17/24 14:19 Oxygen Delivery Method Room Air 03/17/24 14:19 BMI result Body Mass Index 34.2 Tobacco/Smoking Status: Tobacco use Status Tobacco use date assessed 11/22/23 03/17/24 14:20 Patient Tobacco Use Status Former Tobacco user 03/17/24 14:20 Tobacco use type Cigarette 03/17/24 14:20 e-Cigarette/Vaping Use Never Used 03/17/24 14:20 Thrive Assessment: Date of Thrive Assessment Date Thrive assessed 08/12/23 03/17/24 14:20 Const General: no acute distress and alert HENMT Ears: TM's normal bilaterally and EAC's normal Throat: Yes posterior oropharynx normal and Yes tonsils normal (no TP congestion noted) Neck Neck: Yes no lymphadenopathy and Yes supple Thyroid: Thyroid normal Resp Auscultation: clear to auscultation bilaterally, no rales and no wheezes Cardio Rate: regular rate Rhythm: regular rhythm Heart sounds: Murmur heart sound present diastolic blowing and at the apex and systolic III/ and at the base GI Palpation (GI): Soft to palpation and nontender Auscultation: normal bowel sounds General: Yes no CVA tenderness Back/Spine/Pelvis Back: no CVA tenderness Thoracic/Lumbar Spine: lumbar spinal tenderness and straight leg raise positive right Skin Rashes: no rashes Extrem General: Yes no clubbing, cyanosis or edema Right upper extremity: shoulder/upper arm Details: tenderness Location: of the A-C joint (and behind the right shoulder ) Office Procedures Flu Questionnaire Does the patient have a severe egg allergy?: No Does the patient have severe life threatening allergies?: No Does the patient have a fever or illness today?: No Has the patient ever had Guillain-Trego Syndrome?: No Has the patient ever had any past reaction to a flu shot?: No Immunizations Fluarix Triv 1561-3037 (PF) 45 mcg (15 mcg x 3)/0.5 mL IM syringe Performing Provider: Jamel Mansfield MD [facility] Administered by: Ofelia Ramirez LPN on 03/17/24 15:04 Dose Route Admin Location Dispensed Lot Number Expiration Date [facility] Triple Valve Tester 0.5 mL IM Left Deltoid 0.5 mL [id number] 11/13/24 [id number] [employer] VIS Given Date VIS Provided VIS Publication Date 03/17/24 Single Vaccine 20 Eligibility Eligibility Date Funding Source Not [facility] Eligible 03/17/24 Private Results Reviewed Results Reviewed: Laboratory Tests 03/03/24 03/03/24 11:25 11:30 WBC 7.9 Hgb 14.8 Hct 44.9 Plt Count 268 Sodium 138 Potassium 4.4 D Creatinine 1.46 H Estimated GFR 34 Fasting Glucose 160 H Hemoglobin A1c % 6.7 H Uric Acid 9.3 H Calcium 9.9 Magnesium 1.9 AST 14 ALT 16 Triglycerides 117 Cholesterol 149 LDL Cholesterol, Calc 99 HDL Cholesterol 27 L Vitamin B12 > 2000 H 25-OH Vitamin D Total 40.7 TSH 0.35 Ur Specific [place] 1.015 Urine Protein Trace Urine Glucose (UA) Negative Urine Blood Negative Urine Nitrite Negative Ur Leukocyte Esterase Moderate (2+) H Microalb/Creat Ratio 90.2 H Coding Level of Care Code Est Pt Level 4 (15602) Complex EM visit Add On G2211 Diagnoses Pure hypercholesterolemia E78.00 Type 2 diabetes mellitus with stage 3b chronic kidney disease, without long-term current use of insulin E11.22; N18.32 Chronic kidney disease stage: stage 3 (moderate) Chronic kidney disease stage 3 subtype: stage 3b (GFR 30-44) Diabetes mellitus care home insulin use: without terminal carman use Stage 3a chronic kidney disease N18.31 Chronic kidney disease stage 3 subtype: stage 3a (GFR 45-59) Chronic diastolic heart failure I50.32 Valvular heart disease I38 Benign essential hypertension I10 Chronic obstructive pulmonary disease, unspecified COPD type J44.9 COPD type: unspecified COPD PSVT (paroxysmal supraventricular tachycardia) I47.1 PAC (premature atrial contraction) I49.1 Peripheral vascular disease I73.9 Toxic multinodular goiter E05.20 Anemia, unspecified type D64.9 Anemia type: unspecified type Chronic right-sided low back pain with right-sided sciatica M54.41; G89.29 Back pain laterality: right Gout, unspecified cause, unspecified chronicity, unspecified site M10.9 Chronicity: unspecified Gout etiology: unspecified cause Gout site: unspecified site Hypomagnesemia E83.42 GERD without esophagitis K21.9 Vitamin D deficiency E55.9 Right shoulder pain, unspecified chronicity M25.511 Chronicity: unspecified Right elbow pain M25.521 Anxiety F41.9 Episode of recurrent major depressive disorder, unspecified depression episode severity F33.9 Active/Remission status: currently active Depression Type: major depressive disorder Major depression episode severity: unspecified Major depression recurrence: recurrent Obesity (BMI 30-39.9) E66.9 Assessment & Plan Assessment & Plan (1) Pure hypercholesterolemia: Code(s): E78.00 - Pure hypercholesterolemia, unspecified Category: Medical Plan: Results of her labs done a couple of weeks ago reviewed and discussed with patient Reinforced low cholesterol diet Continue Atorvastatin 40 mg QD Will recheck her labs and fasting lipids in 3 months for follow up (2) Type 2 diabetes mellitus with diabetic chronic kidney disease: Code(s): E11.22 - Type 2 diabetes mellitus with diabetic chronic kidney disease Category: Medical Qualifiers: Chronic kidney disease stage: stage 3 (moderate) Chronic kidney disease stage 3 subtype: stage 3b (GFR 30-44) Diabetes mellitus terminal carman insulin use: without terminal carman use Qualified Code(s): E11.22 - Type 2 diabetes mellitus with diabetic chronic kidney disease; N18.32 - Chronic kidney disease, stage 3b Plan: Her HgbA1c was at 6.7% on her labs done a couple of weeks ago (was previously at 6.2% a few months ago) - goal is at least <7.0% Reinforced diabetic diet Continue Januvia 100 mg QD She was taken off Glimepiride 1 mg QD at her last visit as she was reportedly experiencing recurrent symptomatic low blood sugar readings Have advised patient that her HgbA1c has gone up significantly in just a few m [facility] - will have her try going back on Glimepiride 1 mg QD for now She could not tolerate Metformin / Metformin ER due to diarrhea Will consider switching her over to an SGLT2 inhibitor like Farxiga for their cardiac and renal benefits (if appropriate) if she again starts experiencing recurrent hypoglycemic symptoms with Glimepiride Will recheck her labs and HgbA1c in 3 months for follow up (3) Chronic kidney disease (CKD), stage III (moderate): Code(s): N18.30 - Chronic kidney disease, stage 3 unspecified Category: Medical Qualifiers: Chronic kidney disease stage 3 subtype: stage 3a (GFR 45-59) Qualified Code(s): N18.31 - Chronic kidney disease, stage 3a Plan: Stable lately She was taken off Valsartan when she reportedly developed some MARBELLA while admitted to the hospital a few months ago Will continue to monitor her GFR and serum creatinine regularly (4) Chronic diastolic heart failure: Comment: SHE IS BEING FOLLOWED BY CARDIOLOGY REGULARLY, AND BEING TREATED FOR CHRONIC DIASTOLIC CONGESTIVE HEART FAILURE. I THINK HER CARDIAC FUNCTION HAS DETERIORATED WHICH ACCOUNTS FOR HER INCREASED SHORTNESS OF BREATH. Code(s): I50.32 - Chronic diastolic (congestive) heart failure Category: Medical Plan: Continue Torsemide 40 mg QD Reinforced fluid restriction Follow up with cardiology as scheduled (5) Valvular heart disease: Code(s): I38 - Endocarditis, valve unspecified Category: Medical Plan: Previous echocardiogram done on 01/14/2021 revealed (+) normal LV size and function, with hyperdynamic EF of >70%; left atrium is severely dilated, with moderate AR and moderate as well as moderate MR and severe MS and mild pulmonary hypertension - these changes appear to be worse compared to previous findings Repeat echocardiogram done on 07/17/2021 revealed findings that are mostly unchanged from 2020 but the gradient across the mitral valve is slightly less and PA pressures have improved and the gradient across the aortic valve is also slightly improved She reportedly had a normal cardiac cath done at [facility] back in August 2022 She has also been advised that she will be potentially requiring valve replacement or repair of her mitral and aortic valve - patient does not feel she is ready for either yet at this time Follow up with cardiology as scheduled - used to see Dr. Ajay Hannah but is now seeing a new forepart reducer (Dr. Nance) (6) Benign essential hypertension: Code(s): I10 - Essential (primary) hypertension Category: Medical Plan: Reinforced low-sodium diet - goal is systolic BP of at least 140 to 150 mm or less Continue Metoprolol ER 100 mg QD Her Valsartan 160 mg QD was discontinued while she was in the hospital a few months ago due to MARBELLA (7) COPD (chronic obstructive pulmonary disease): Comment: SHE HAS MODERATELY SEVERE ASTHMA/COPD. WITH THE CURRENT COMBINATION SHE IS FEELING BETTER. SHE HAS NOT REQUIRING ANY NEED FOR RESCUE INHALER. Code(s): J44.9 - Chronic obstructive pulmonary disease, unspecified Category: Medical Qualifiers: COPD type: unspecified COPD Qualified Code(s): J44.9 - Chronic obstructive pulmonary disease, unspecified Plan: Stable Continue Advair Diskus 250-50 mcg 1 inhalation BID, Incruse Ellipta 62.5 mcg 1 inhalation QD and Albuterol HFA 108 mcg 2 puffs 4 times a day as needed Follow up with pulmonary as scheduled - sees Dr. Cardona (8) PSVT (paroxysmal supraventricular tachycardia): Code(s): I47.1 - Supraventricular tachycardia Category: Medical Plan: She is currently controlled on Diltiazem ER Follow-up with cardiology as scheduled (9) PAC (premature atrial contraction): Code(s): I49.1 - Atrial premature depolarization Category: Medical Plan: This has been better controlled on Diltiazem lately - continue Diltiazem ER 240 mg QD Follow-up with cardiology as scheduled (10) Peripheral vascular disease: Comment: S/P angioplasty of left lower extremity in July 2020 Code(s): I73.9 - Peripheral vascular disease, unspecified Category: Medical Plan: S/P angioplasty although patient did not feel that her surgery helped a lot She was prevously on dual antiplatelet therapy with low dose Aspirin 81 mg QD and Clopidogrel 75 mg QD previously but is now just on Clopidogrel (Aspirin was discontinued due to GI bleed and profound anemia) Follow up with vascular surgery as scheduled (11) Toxic multinodular goiter: Code(s): E05.20 - Thyrotoxicosis with toxic multinodular goiter without thyrotoxic crisis or storm Category: Medical Plan: Her TFTs were again normal on her recent labs Follow-up with endocrinology as scheduled - FNA Bx done on 06/17/2017 came out benign Ultrasound done a couple of years ago came back unchanged and recommendation is to just continue with yearly ultrasound for continuing surveillance (12) Anemia: Code(s): D64.9 - Anemia, unspecified Category: Medical Qualifiers: Anemia type: unspecified type Qualified Code(s): D64.9 - Anemia, unspecified Plan: Her H/H have improved/corrected and have remained normal on her recent labs This was most likely due to GI bleeding related to her previous dual antiplatelet therapy and she required blood transfusion of 2 units of PRBC in January 2021 and 1 more unit in April 2021; also s/p IV iron in March 2021 Continue Ferrous Sulfate 325 mg BID Follow up with hematology as scheduled (13) Chronic low back pain with right-sided sciatica: Code(s): M54.41 - Lumbago with sciatica, right side; G89.29 - Other chronic pain Category: Medical Qualifiers: Back pain laterality: right Qualified Code(s): M54.41 - Lumbago with sciatica, right side; G89.29 - Other chronic pain Plan: Lumbar spine x-rays done back in April 2022 revealed (+) multilevel lumbar spondylosis and facet arthritis, with no acute changes or fractures noted Reinforced activity and weight-lifting restrictions Due to her increasing low back pain and right lumbar radiculopathy, will send her for repeat lumbar spine x-rays and also for SI joint x-rays for further evaluation Have advised her to consider referral to pain management but will wait and see how her x-rays come out first (14) Gout: Code(s): M10.9 - Gout, unspecified Category: Medical Qualifiers: Chronicity: unspecified Gout etiology: unspecified cause Gout site: unspecified site Qualified Code(s): M10.9 - Gout, unspecified Plan: Asymptomatic; her serum uric acid level has increased further to 9.3 when last checked a couple of weeks ago Reinforced low purine diet Continue Colcrys 0.6 mg twice a day, Indomethacin 25 mg twice a day with food as needed (15) Hypomagnesemia: Code(s): E83.42 - Hypomagnesemia Category: Medical Plan: Corrected - will continue to monitor her serum magnesium level regularly (16) GERD without esophagitis: Code(s): K21.9 - Gastro-esophageal reflux disease without esophagitis Category: Medical Plan: Dietary restrictions reinforced Continue Lansoprazole 30 mg daily; may take some OTC Famotidine 20 mg PRN for symptomatic relief Follow-up with GI as scheduled (17) Vitamin D deficiency: Code(s): E55.9 - Vitamin D deficiency, unspecified Category: Medical Plan: Continue Vitamin D3 5000 units once a day (18) Right shoulder pain: Code(s): M25.511 - Pain in right shoulder Category: Medical Qualifiers: Chronicity: unspecified Qualified Code(s): M25.511 - Pain in right shoulder Plan: Suspect right shoulder bursitis and/or impingement syndrome Will send her for x-rays of the right shoulder for further evaluation (19) Right elbow pain: Code(s): M25.521 - Pain in right elbow Category: Medical Plan: Will send her for x-rays of the right elbow as well for further evaluation (20) Anxiety: Code(s): F41.9 - Anxiety disorder, unspecified Category: Medical Plan: States that her Citalopram is helping with her anxiety (21) Depression: Code(s): F32.9 - Major depressive disorder, single episode, unspecified Category: Medical Qualifiers: Active/Remission status: currently active Depression Type: major depressive disorder Major depression episode severity: unspecified Major depression recurrence: recurrent Qualified Code(s): F33.9 - Major depressive disorder, recurrent, unspecified Plan: Continue Citalopram 40 mg QD and Mirtazapine 15 mg Q HS Follow-up with Psychiatry as scheduled - is now seeing a nurse practitioner as her previous psychiatrist retired from active practice (22) Obesity (BMI 30-39.9): Code(s): E66.9 - Obesity, unspecified Category: Medical Plan: Reinforced diet; exercise and weight loss are unrealistic in this patient as she is currently experiencing a lot of physical and vascular symptoms and has multiple comorbidities that significantly limits her activity and exercise tolerance Plan As requested, flu vaccine given to patient today Follow up in 3 months Orders: Orders Influenza [id number] Immunization 03/17/24 Z23 - Encounter for immunization XR shoulder RT min 2V 03/17/24 M25.511 - Pain in right shoulder XR elbow RT min 3V 03/17/24 M25.521 - Pain in right elbow Comprehensive [place]. Panel Fast 3 Months E78.00 - Pure hypercholesterolemia, unspecified XR lumbar spine 2-3V 03/17/24 M54.50 - Low back pain, unspecified XR sacroiliac joint min 3V 03/17/24 M54.50 - Low back pain, unspecified Complete Blood Count Auto Diff 3 Months D64.9 - Anemia, unspecified Lipid Panel 3 Months E78.00 - Pure hypercholesterolemia, unspecified Hemoglobin A1c 3 Months E11.9 - Type 2 diabetes mellitus without complications Medications: New clotrimazole-betamethasone 1-0.05 % 1 appl topical BID 2 weeks 45 grams 0RF
== END 2024-03-17 15:28 | disposition home or self-care (01) ==
LOC: HO.HMCH 13:59
PROVIDERS: PCP Internal Medicine; Visit Provider Internal Medicine
DX: E78.00 Pure hypercholesterolemia, unspecified (principal); E11.22 Type 2 diabetes mellitus with diabetic chronic kidney disease; N18.32 Chronic kidney disease, stage 3b; N18.31 Chronic kidney disease, stage 3a; I50.32 Chronic diastolic (congestive) heart failure; I38 Endocarditis, valve unspecified; I10 Essential (primary) hypertension; J44.9 Chronic obstructive pulmonary disease, unspecified; I47.10 Supraventricular tachycardia, unspecified; I49.1 Atrial premature depolarization; I73.9 Peripheral vascular disease, unspecified; E05.20 Thyrotoxicosis with toxic multinodular goiter without thyrotoxic crisis or storm; D64.9 Anemia, unspecified; M54.41 Lumbago with sciatica, right side; G89.29 Other chronic pain; M10.9 Gout, unspecified; E83.42 Hypomagnesemia; K21.9 Gastro-esophageal reflux disease without esophagitis; E55.9 Vitamin D deficiency, unspecified; M25.511 Pain in right shoulder

== ENCOUNTER 2024-03-17 13:59 | Outpatient (REF) | payer MEDICARE, OTHER, SELFPAY | END 2024-03-17 14:00 | disposition home or self-care (01) | LOC: HO.XRAY 13:59 | PROVIDERS: PCP Internal Medicine; Visit Provider Internal Medicine | DX: M25.511 Pain in right shoulder (principal); M54.50 Low back pain, unspecified; M25.521 Pain in right elbow; E78.00 Pure hypercholesterolemia, unspecified; E11.22 Type 2 diabetes mellitus with diabetic chronic kidney disease; I50.32 Chronic diastolic (congestive) heart failure; I13.0 Hypertensive heart and chronic kidney disease with heart failure and stage 1 through stage 4 chronic kidney disease, or unspecified chronic kidney disease; N18.31 Chronic kidney disease, stage 3a; Z79.4 Long term (current) use of insulin; I38 Endocarditis, valve unspecified; J44.9 Chronic obstructive pulmonary disease, unspecified; E05.20 Thyrotoxicosis with toxic multinodular goiter without thyrotoxic crisis or storm; D64.9 Anemia, unspecified; M54.41 Lumbago with sciatica, right side; M10.9 Gout, unspecified; E83.42 Hypomagnesemia; K21.9 Gastro-esophageal reflux disease without esophagitis; E55.9 Vitamin D deficiency, unspecified; F41.9 Anxiety disorder, unspecified; F33.9 Major depressive disorder, recurrent, unspecified; E66.9 Obesity, unspecified; Z23 Encounter for immunization; Z79.899 Other long term (current) drug therapy | CPT/HCPCS: 72100; 72202; 73030; 73080; 90471; 90656; 99212 ==

== ENCOUNTER 2024-03-21 11:00 | Outpatient (REF) | payer MEDICARE, OTHER, SELFPAY ==
[2024-03-22 13:51] LABS: Adenovirus F 40/41 Not Detected (Not Detect.); Astrovirus Not Detected (Not Detect.); Campylobacter Not Detected (Not Detect.); Cryptosporidium Not Detected (Not Detect.); Cyclospora cayetanensis Not Detected (Not Detect.); E. coli EAEC Not Detected (Not Detect.); E. coli EPEC Not Detected (Not Detect.); E. coli ETEC Not Detected (Not Detect.); E. coli STEC Not Detected (Not Detect.); Entamoeba histolytica Not Detected (Not Detect.); Giardia lamblia Not Detected (Not Detect.); Norovirus GI/GII Not Detected (Not Detect.); Plesiomonas shigelloides Not Detected (Not Detect.); Rotavirus A Not Detected (Not Detect.); Salmonella Not Detected (Not Detect.); Sapovirus Not Detected (Not Detect.); Shigella sp./EIEC Not Detected (Not Detect.); Vibrio Not Detected (Not Detect.); Vibrio Cholerae Not Detected (Not Detect.); Yersinia enterocolitica Not Detected (Not Detect.)
== END 2024-03-21 11:01 | disposition home or self-care (01) ==
LOC: HO.HMGCLNP 11:00
PROVIDERS: PCP Internal Medicine; Visit Provider Internal Medicine
DX: K52.9 Noninfective gastroenteritis and colitis, unspecified (principal)
CPT/HCPCS: 87507

== ENCOUNTER 2024-03-23 14:17 | Outpatient (AMB) | payer MEDICARE, OTHER, SELFPAY ==
[2024-03-23 14:31] VITALS: BP 134/62; PULSE 62; O2SAT 94; BMI 34.5
--- NOTE | 2024-03-23 14:31 | A.OFFVIS_ITS ---
Vital Signs 03/23/24 14:31 Height 5 ft 2 in Weight 188 lb 7.924 oz BMI 34.5 BP 134/62 Blood Pressure Location Rt brachial Position Sitting Pulse 62 Pulse Source Pulse Oximeter Pulse Oximetry (%) 94 Oxygen Delivery Method Room Air Intake Visit Reasons: Shortness of breath Digital Marketing Lead Required: No Cco: Cco offered & declined Accompanied by: Self / Same As Patient Allergies Iodinated Contrast Media [IV DYE, IODINE CONTAINING CONTRAST ] Allergy (Severe, Verified 03/23/24 14:51) HIVE Penicillins [PENICILLINS] Allergy (Severe, Verified 03/23/24 14:51) HIVES Medication List - Last Reconciled 03/23/24 by Schuyler Cardona MD allopurinol 100 mg PO DAILY 90 days atorvastatin (Lipitor) 80 mg PO DAILY cholecalciferol (vitamin D3) 50 mcg PO DAILY 90 days citalopram mg PO clotrimazole-betamethasone 1-0.05 % 1 appl topical BID 2 weeks diltiazem HCl ER 240 mg PO DAILY diphenoxylate-atropine 2.5-0.025 mg tabs PO ferrous sulfate (Feosol) 325 mg PO BID fluticasone furoate-vilanterol 200-25 mcg/dose (Breo Ellipta) 1 ea inhalation DAILY Incruse Ellipta 62.5 mcg/actuation (umeclidinium) 1 inh inhalation DAILY 30 days NS Januvia (sitagliptin phosphate) 100 mg PO DAILY 30 days NS lansoprazole (Prevacid) 30 mg PO DAILY@0630 magnesium 400 mg PO DAILY mecobalamin (vitamin B12) 5,000 mcg PO DAILY melatonin 10 mg PO BEDTIME PRN metoprolol succinate ER 100 mg PO DAILY 90 days mirtazapine 15 mg PO BEDTIME montelukast 10 mg PO DAILY nystatin 1 appl topical TID 10 days potassium chloride ER 50 mEq PO DAILY prothrombin time/INR test metr (Coaguchek XS Pro) As directed prothrombin time/INR test metr (Coaguchek XS Pro) As directed spironolactone 25 mg PO DAILY torsemide 40 mg PO DAILY trazodone 50 mg PO BEDTIME PRN warfarin Take 1 tablet daily or as instructed orally; Do you need a note to return to daycare/school/sports/work: No HPI HPI Shortness of breath: Details: SUKHDEEP IS 83 YEARS OLD FEMALE WITH MULTIPLE COMORBIDITIES INCLUDING CHRONIC OBSTRUCTIVE PULMONARY DISEASE. SHE IS HERE FOR 6 MONTHS FOLLOW-UP. HAS BEEN DOING WELL EXCEPT FOR GETTING SHORT OF BREATH WHEN SHE WALKS UP HILL OR CLIMBS STAIRS. MAIN COMPLAINT IS EXCESSIVE AMOUNT OF MUCUS THAT SHE EXPECTORATES. BUT SHE HAS HAD NO BOUTS OF FEVER OR CHILLS. CONTINUES TO USE BREO AND INCRUSE [facility]LLIPTA [facility] Medical History Pneumonia Chronic diastolic heart failure CHF (congestive heart failure) Thrush, oral GI bleed Occult blood positive stool Microcytic anemia Valvular heart disease Exertional dyspnea Hemorrhagic cystitis Osteopenia Toxic multinodular goiter Obesity (BMI 30-39.9) Hearing impairment Peripheral vascular disease Obesity (BMI 30-39.9) Depression Anxiety Osteoarthritis of ankle and foot Vitamin D deficiency Allergic rhinitis Anemia GERD without esophagitis Gout Hypomagnesemia Multiple thyroid nodules Pure hypercholesterolemia Benign essential hypertension PSVT (paroxysmal supraventricular tachycardia) PAC (premature atrial contraction) COPD (chronic obstructive pulmonary disease) Chronic kidney disease (CKD), stage III (moderate) Type 2 diabetes mellitus with diabetic chronic kidney disease Sciatica of right side Surgical History History of colonoscopy History of angioplasty of peripheral vessel (~08/13/20) History of biopsy History of neck surgery History of cataract surgery History of bladder surgery History of tonsillectomy and adenoidectomy History of appendectomy History of hysterectomy Family History Father Stroke CVD (cardiovascular disease) Mother CVD (cardiovascular disease) Hypertension CAD (coronary artery disease) Other Mental health disorder Social History Household Members: None Housing: Condominium Do you presently have visiting nurse or other home services: Yes (sack sewer machine o nce per week- [facility]) Alcohol intake: current Alcohol intake frequency: holidays/special occasions only Alcohol type: beer and hard liquor Patient Tobacco Use Status: Former Tobacco user Tobacco use type: Cigarette Cigarette Packs Per Day: 2 Cigarettes Per Day: 40.0 Years Smoked: 40 e-Cigarette/Vaping Use: Never Used Second Hand Smoke Exposure: Yes service: No Current occupational status: retired Cognitive needs: Yes (cane) Hearing needs: Yes Vision needs: Yes Review of Systems Const All systems reviewed & are unremarkable except as noted in HPI and below Eyes Reports no additional complaints ENT Reports nasal congestion (Mostly controlled with use of med) Card Denies chest pain, Denies leg edema and Reports dyspnea on exertion (Her shortness of breath on activity is much increase than before) Resp Denies cough, Reports dyspnea on exertion (Her shortness of breath on activity is much increase than before) and Denies wheezing Reports no additional complaints Musc Reports back pain (Mild) and Reports arthralgias (Mild in multiple joints) Skin/Breast Reports system reviewed and no additional complaints, except as documented Neuro Reports no additional complaints Psych Reports anxiety Aller/Immun Denies wheezing Physical Exam Vital Signs: Last Vital Signs Pulse 62 03/23/24 14:31 BP 134/62 03/23/24 14:31 Pulse Ox 94 03/23/24 14:31 Oxygen Delivery Method Room Air 03/23/24 14:31 BMI result Body Mass Index 34.5 Const General: comfortable, no acute distress, alert and awake Orientation/consciousness: patient oriented x3 HEENT Head: Yes normal to inspection General nose exam: No nasal polyps present and No nasal discharge present Face and sinus: Yes sinuses nontender Mouth: oropharynx abnormals (She has erythema of the oral mucosa and white spots over the soft palate ) Throat: Yes posterior oropharynx normal Eyes General: appearance normal, both eyes and all related structures Neck Neck: Yes normal visual inspection, Yes no lymphadenopathy, Yes trachea midline and Yes no JVD Thyroid: Thyroid normal Chest Chest palpation & inspection: normal inspection of the chest, normal palpation of entire chest wall and no tenderness Resp Other: Percussion note is resonant. Breath sounds are equal on both sides, slightly distant. No wheezes rhonchi or crepitations are heard. Cardio Palpation: normal PMI Rate: regular rate Rhythm: regular rhythm Heart sounds: no gallops and Murmur heart sound present (Loud systolic murmur at the aortic area as well as over left sternal border) GI Palpation (GI): Soft to palpation, nontender, No hepatosplenomegaly present and no masses Auscultation: normal bowel sounds Back/Spine/Pelvis Thoracic/Lumbar Spine: thoracic and lumbar spine normal to inspection and thoraco-lumbar ROM limited Skin General skin exam: no rashes or lesions noted Neuro General: patient oriented x3 and no focal motor deficits Cranial nerves: Yes CN's II-XII intact bilaterally Extrem General: Yes normal to inspection, Yes no clubbing, cyanosis or edema and Yes no calf tenderness Psych Appearance: grossly normal and well kempt Speech and movement: Normal speech and movement present Assessment & Plan Assessment & Plan (1) COPD (chronic obstructive pulmonary disease): Comment: SHE HAS MODERATELY SEVERE ASTHMA/COPD. WITH THE CURRENT COMBINATION SHE IS FEELING BETTER. SHE HAS NOT REQUIRED TO USE RESCUE INHALER. Code(s): J44.9 - Chronic obstructive pulmonary disease, unspecified Category: Medical Qualifiers: COPD type: unspecified COPD Qualified Code(s): J44.9 - Chronic obstructive pulmonary disease, unspecified Plan: CONTINUE TO USE INCRUSE ELLIPTA 1 INHALATION DAILY AND BREO ELLIPTA 200-251 INHALATION DAILY USE HUMIDIFIER IN THE HOUSE DURING WINTER MONTHS. Coding Level of Care Code Est Pt Level 3 (92395) Diagnoses Chronic obstructive pulmonary disease, unspecified COPD type J44.9 COPD type: unspecified COPD
== END 2024-03-23 14:52 | disposition home or self-care (01) ==
LOC: HO.HPS 14:18
PROVIDERS: PCP Internal Medicine; Visit Provider Internal Medicine
DX: J44.9 Chronic obstructive pulmonary disease, unspecified (principal)
CPT/HCPCS: 99213

== ENCOUNTER → 2024-03-23 14:17 | Outpatient (BNVA) | payer MEDICARE, OTHER, SELFPAY | PROVIDERS: PCP Internal Medicine; Visit Provider Internal Medicine | DX: J44.9 Chronic obstructive pulmonary disease, unspecified (principal) | CPT/HCPCS: 99212 ==

== ENCOUNTER 2024-04-28 | Outpatient (REF) | payer MEDICARE, OTHER, SELFPAY | END 2024-04-28 00:01 | disposition home or self-care (01) | LOC: CF | PROVIDERS: PCP Internal Medicine; Visit Provider Internal Medicine | DX: J06.9 Acute upper respiratory infection, unspecified (principal) | CPT/HCPCS: 99212 ==

== ENCOUNTER 2024-04-28 16:21 | Outpatient (AMB) | payer MEDICARE, OTHER, SELFPAY ==
[2024-04-28 16:25] VITALS: BP 112/66; PULSE 55; TEMP 36.4; O2SAT 94; BMI 34.4
--- NOTE | 2024-04-28 16:25 | AM.OFFWIN_ITS ---
Intake Vital Signs 04/28/24 16:25 Height 5 ft 2 in Weight 188 lb BMI 34.4 BP 112/66 Blood Pressure Location Lt brachial Position Sitting Pulse 55 Pulse Source Pulse Oximeter Temp 97.5 F Temp Source Oral Pulse Oximetry (%) 94 Oxygen Delivery Method Room Air Intake Visit Reasons: EP upper respiratory, weak, SOB Patient Tobacco Use Status: Former Tobacco user Allergies Iodinated Contrast Media [IV DYE, IODINE CONTAINING CONTRAST ] Allergy (Severe, Verified 03/23/24 14:51) HIVE Penicillins [PENICILLINS] Allergy (Severe, Verified 03/23/24 14:51) HIVES HPI HPI Comments History of Present Illness Details History The patient is an 83-year-old female presenting with shortness of breath and upper respiratory symptoms. She initially began experiencing a sore throat, followed by upper respiratory symptoms stephany to a severe cold, with substantial mucus production and cough, persisting for nearly a week. She has a history of Chronic Obstructive Pulmonary Disease (COPD) and currently manages it with Brio and Montelukast. She does not have a rescue inhaler and has not been using a nebulizer. Although not currently taking additional medications for the respiratory symptoms, she has received previous vaccinations against influenza and the latest strain of COVID-19. She expressed occasional wheezing but denied other significant past issues related to COPD exacerbations. A diagnostic chest x-ray was suggested due to her complaint of shortness of breath and a familial incidence of pneumonia and bronchitis. Her daughter was recently diagnosed with pneumonia and bronchitis, but they have not been in contact since . Physical Exam General: Cooperative, healthy appearing, comfortable and no acute distress Orientation/consciousness: Patient oriented x3 Limitations: No limitations Head: Normal to inspection Ears: Hearing grossly normal bilaterally, external ears normal and TM's normal bilaterally Nose: Normal external nose present, Normal nares present and No nasal discharge present Face and sinus: Normal facial exam and Yes sinuses nontender Mouth: Normal oral and palatal mucosa present and moist mucous membranes Throat: Yes tonsils normal, Yes uvula midline. Posterior oropharynx erythema Eyes: Appearance normal, both eyes and all related structures Neck: Normal visual inspection Respiratory: Clear to auscultation bilaterally. Normal respiratory effort, able to speak in complete sentences, Actively coughing, no respiratory distress, not tachypneic, no tripod positioning and no use of accessory muscles Cardiovascular: Regular rate and rhythm. Normal S1 and S2. Noted a murmur. Skin: No rashes or lesions noted Neuro: Patient oriented x3 Extremities: Normal to inspection and Yes no clubbing, cyanosis or edema PFSH Medical History Pneumonia Chronic diastolic heart failure CHF (congestive heart failure) Thrush, oral GI bleed Occult blood positive stool Microcytic anemia Valvular heart disease Exertional dyspnea Hemorrhagic cystitis Osteopenia Toxic multinodular goiter Obesity (BMI 30-39.9) Hearing impairment Peripheral vascular disease Obesity (BMI 30-39.9) Depression Anxiety Osteoarthritis of ankle and foot Vitamin D deficiency Allergic rhinitis Anemia GERD without esophagitis Gout Hypomagnesemia Multiple thyroid nodules Pure hypercholesterolemia Benign essential hypertension PSVT (paroxysmal supraventricular tachycardia) PAC (premature atrial contraction) COPD (chronic obstructive pulmonary disease) Chronic kidney disease (CKD), stage III (moderate) Type 2 diabetes mellitus with diabetic chronic kidney disease Sciatica of right side Surgical History History of colonoscopy History of angioplasty of peripheral vessel (~08/13/20) History of biopsy History of neck surgery History of cataract surgery History of bladder surgery History of tonsillectomy and adenoidectomy History of appendectomy History of hysterectomy Family History Father Stroke CVD (cardiovascular disease) Mother CVD (cardiovascular disease) Hypertension CAD (coronary artery disease) Other Mental health disorder Social History Household Members: None Housing: Condominium Do you presently have visiting nurse or other home services: Yes (advertising vice president once per week- [facility]) Alcohol intake: current Alcohol intake frequency: holidays/special occasions only Alcohol type: beer and hard liquor Patient Tobacco Use Status: Former Tobacco user Tobacco use type: Cigarette Cigarette Packs Per Day: 2 Cigarettes Per Day: 40.0 Years Smoked: 40 e-Cigarette/Vaping Use: Never Used Second Hand Smoke Exposure: Yes service: No Current occupational status: retired Cognitive needs: Yes (cane) Hearing needs: Yes Vision needs: Yes Review of Systems Const All systems reviewed & are unremarkable except as noted in HPI and below Physical Exam Vital Signs: Last Vital Signs Pulse 55 04/28/24 16:25 BP 112/66 04/28/24 16:25 Pulse Ox 94 04/28/24 16:25 Oxygen Delivery Method Room Air 04/28/24 16:25 BMI result Body Mass Index 34.4 Assessment & Plan Assessment & Plan (1) URI, acute: Code(s): J06.9 - Acute upper respiratory infection, unspecified Plan: Plan - Proceed with a chest x-ray to evaluate potential pneumonia given the recent upper respiratory symptoms. My interpretation of the CXR is streaky opacities, will send antibiotics (doxy and cefpodoxime, with pts allergies) to her pharmacy and an inhaler. Communicated this to the pt and her daughter. - Administer diagnostic tests for COVID-19, influenza, and RSV. - Provide a prescription for antibiotics if pneumonia is confirmed from chest imaging. - Prescribe a rescue inhaler for relief of shortness of breath associated with COPD. - Patient instructed to remain at the facility for the immediate review of the x-ray results and further management decisions based on findings. Patient was informed and verbally consented to the use of an ambient scribe for clinic note documentation during this visit Orders: Orders SARS-CoV2/FLU/RSV Today J06.9 - Acute upper respiratory infection, unspecified XR chest 2V Today R05.9 - Cough, unspecified Medications: New albuterol sulfate 90 mcg/actuation (Ventolin HFA) 2 puffs inhalation Q4-6H PRN 8.5 grams 0RF shortness of breath or wheezing cefpodoxime must administer with a meal/food 200 mg PO Q12H 14 tabs 0RF doxycycline hyclate 100 mg PO Q12H 14 tabs 0RF Coding Level of Care Code Est Pt Level 4 (32947) Diagnoses URI, acute J06.9
== END 2024-04-28 16:51 | disposition home or self-care (01) ==
PROVIDERS: PCP Internal Medicine; Visit Provider Physician Assistant
DX: J06.9 Acute upper respiratory infection, unspecified (principal)

== ENCOUNTER 2024-04-28 16:28 | Outpatient (REF) | payer MEDICARE, OTHER, SELFPAY ==
--- NOTE | ~2024-04-28 | XR_ITS ---
EXAMINATION: XR CHEST CLINICAL INFORMATION: R05.9 - Cough, unspecified COMPARISON: Chest x-ray on 01/07/2023 TECHNIQUE: 2 views of the chest were obtained. FINDINGS: The cardiac silhouette is normal. There is mild diffuse bronchial wall thickening. There are no areas of consolidation. There are no pleural effusions or pneumothoraces. The bones and soft tissues are unremarkable for the patient's age. XR/XR chest 2V IMPRESSION: Bronchial wall thickening may be infectious and/or inflammatory in etiology. Electronically signed by: Awilda Gilmore MD 04/28/2024 05:14 PM EST
[2024-04-29 15:19] LABS: Influenza A PCR NEGATIVE (Negative); Influenza B PCR NEGATIVE (Negative); Resp Syncy Virus RNA Qual PCR POSITIVE (Negative); SARS COV2 PCR INHOUSE NEGATIVE (Negative)
== END 2024-04-28 16:29 | disposition home or self-care (01) ==
LOC: HO.LAB 16:28
PROVIDERS: PCP Internal Medicine; Visit Provider Physician Assistant
DX: R05.9 Cough, unspecified (principal); J06.9 Acute upper respiratory infection, unspecified
CPT/HCPCS: 0241U; 71046

== ENCOUNTER 2024-05-08 11:33 | Outpatient (AMB) | payer MEDICARE, OTHER, SELFPAY ==
--- NOTE | 2024-05-08 12:46 | AM.OFFWIN_ITS ---
Intake Vital Signs 05/08/24 12:51 Weight 188 lb BP 110/72 Blood Pressure Location Rt brachial Position Sitting Pulse 66 Pulse Source Pulse Oximeter Temp 97.5 F Temp Source Oral Pulse Oximetry (%) 94 Oxygen Delivery Method Room Air Intake Visit Reasons: EP still not feeling well from RSV/pneumonia Intake Note: Patient here to follow up after having rsv and pneumonia, she states her symptoms have improved but she is still not feeling well . Patient Tobacco Use Status: Former Tobacco user Allergies Iodinated Contrast Media [IV DYE, IODINE CONTAINING CONTRAST ] Allergy (Severe, Verified 05/08/24 12:50) HIVE Penicillins [PENICILLINS] Allergy (Severe, Verified 05/08/24 12:50) HIVES Do you need a note to return to daycare/school/sports/work: No HPI EP still not feeling well from RSV/pneumonia HPI Details This note is constructed using voice recognition software. While every effort has been made to ensure accuracy, tractor operator battery errors may have been included. The patient is a 83 year old female who presents to the clinic today with ongoing fatigue and cough after pneumonia and RSV. She denies fever, chills, dys pnea, or worsening symptoms. Symptom onset 04/21/24, and improving since onset. [facility] Medical History Pneumonia Chronic diastolic heart failure CHF (congestive heart failure) Thrush, oral GI bleed Occult blood positive stool Microcytic anemia Valvular heart disease Exertional dyspnea Hemorrhagic cystitis Osteopenia Toxic multinodular goiter Obesity (BMI 30-39.9) Hearing impairment Peripheral vascular disease Obesity (BMI 30-39.9) Depression Anxiety Osteoarthritis of ankle and foot Vitamin D deficiency Allergic rhinitis Anemia GERD without esophagitis Gout Hypomagnesemia Multiple thyroid nodules Pure hypercholesterolemia Benign essential hypertension PSVT (paroxysmal supraventricular tachycardia) PAC (premature atrial contraction) COPD (chronic obstructive pulmonary disease) Chronic kidney disease (CKD), stage III (moderate) Type 2 diabetes mellitus with diabetic chronic kidney disease Sciatica of right side Surgical History History of colonoscopy History of angioplasty of peripheral vessel (~08/13/20) History of biopsy History of neck surgery History of cataract surgery History of bladder surgery History of tonsillectomy and adenoidectomy History of appendectomy History of hysterectomy Family History Father Stroke CVD (cardiovascular disease) Mother CVD (cardiovascular disease) Hypertension CAD (coronary artery disease) Other Mental health disorder Social History Household Members: None [facility] Do you presently have visiting nurse or other home services: Yes (dag sprayer once per week- [facility]) Alcohol intake: current Alcohol intake frequency: holidays/special occasions only Alcohol type: beer and hard liquor Patient Tobacco Use Status: Former Tobacco user Tobacco use type: Cigarette Cigarette Packs Per Day: 2 Cigarettes Per Day: 40.0 Years Smoked: 40 e-Cigarette/Vaping Use: Never Used Second Hand Smoke Exposure: Yes service: No Current occupational status: retired Cognitive needs: Yes (cane) Hearing needs: Yes Vision needs: Yes Review of Systems Const All systems reviewed & are unremarkable except as noted in HPI and below Physical Exam Vital Signs: Last Vital Signs Temp 97.5 F 05/08/24 12:51 Pulse 66 05/08/24 12:51 BP 110/72 05/08/24 12:51 Pulse Ox 94 05/08/24 12:51 Oxygen Delivery Method Room Air 05/08/24 12:51 Const General: cooperative, healthy appearing, comfortable and no acute distress Orientation/consciousness: patient oriented x3 Limitations: no limitations HEENT Head: Yes normal to inspection Ears: hearing grossly normal bilaterally, external ears normal and TM's normal bilaterally General nose exam: Normal external nose present, Normal nares present and No nasal discharge present Face and sinus: Yes normal facial exam and Yes sinuses nontender Mouth: Normal oral and palatal mucosa present and moist mucous membranes Throat: Yes tonsils normal, Yes uvula midline and Yes posterior oropharynx abnormal (Erythema) Eyes General: appearance normal, both eyes and all related structures Neck Neck: Yes normal visual inspection Resp Effort & Inspection: normal respiratory effort, able to speak in complete sentences, Actively coughing, no respiratory distress, not tachypneic, no tripod positioning and no use of accessory muscles Auscultation: clear to auscultation bilaterally Cardio Jugular venous distension: no JVD Rate: regular rate Rhythm: regular rhythm Heart sounds: S1 normal heart sound present, S2 normal heart sound present, no click, no gallops, no murmurs and no rubs Skin General skin exam: no rashes or lesions noted, elasticity normal and turgor normal Neuro General: patient oriented x3 Extrem General: Yes normal to inspection and Yes no clubbing, cyanosis or edema Assessment & Plan Assessment & Plan (1) Pneumonia: Code(s): J18.9 - Pneumonia, unspecified organism Qualifiers: Pneumonia type: due to unspecified organism Laterality: unspecified laterality Lung location: unspecified part of lung Qualified Code(s): J18.9 - Pneumonia, unspecified organism Plan: Patient continues to progress in terms of symptoms, reviewed with patient how this is considered normal, and prolonged symptoms may last several weeks following illness. Reviewed return precautions, including worsening fatigue, dyspnea, fevers, which would warrant repeat evaluation. Discussed consideration of trial benzonatate for cough suppression, however patient has declined at this time. Advised follow up with ongoing or worsening symptoms. Plan See above for full details and plan. Coding Level of Care Code Est Pt Level 3 (49739) Diagnoses Pneumonia due to infectious organism, unspecified laterality, unspecified part of lung J18.9 Pneumonia type: due to unspecified organism Laterality: unspecified laterality Lung location: unspecified part of lung
[2024-05-08 12:51] VITALS: BP 110/72; PULSE 66; TEMP 36.4; O2SAT 94
== END 2024-05-08 13:05 | disposition home or self-care (01) ==
PROVIDERS: PCP Internal Medicine; Visit Provider Registered Nurse
DX: J18.9 Pneumonia, unspecified organism (principal)

== ENCOUNTER → 2024-05-08 11:33 | Outpatient (BNVA) | payer MEDICARE, OTHER, SELFPAY | PROVIDERS: PCP Internal Medicine; Visit Provider Registered Nurse | DX: R53.83 Other fatigue (principal); J18.9 Pneumonia, unspecified organism; Z87.891 Personal history of nicotine dependence | CPT/HCPCS: 99212 ==

== ENCOUNTER 2024-05-23 13:07 | Outpatient (REF) | payer MEDICARE, OTHER, SELFPAY ==
[2024-05-23 16:26] LABS: Anion Gap 15 (12-20); Blood Urea Nitrogen 45 mg/dL (9-16); Calcium 10.2 mg/dL (8.4-10.2); Carbon Dioxide 25 mmol/L (22-29); Chloride 103 mmol/L (96-108); Estimated Glomerular Filt Rate 30; Glucose Random 172 mg/dL (60-115); Potassium 4.8 mmol/L (3.3-5.1); Sodium 138 mmol/L (135-145)
== END 2024-05-23 13:08 | disposition home or self-care (01) ==
LOC: HO.HMGCLDS 13:07
PROVIDERS: PCP Internal Medicine; Visit Provider Internal Medicine Cardiovascular Disease
DX: I50.32 Chronic diastolic (congestive) heart failure (principal)
CPT/HCPCS: 36415; 80048

== ENCOUNTER 2024-05-29 07:40 | Outpatient (REF) | payer MEDICARE, OTHER, SELFPAY | END 2024-05-29 07:41 | disposition home or self-care (01) | LOC: HO.CT 07:40 | PROVIDERS: PCP Internal Medicine; Visit Provider Internal Medicine | DX: Z13.89 Encounter for screening for other disorder (principal) ==

== ENCOUNTER 2024-06-02 15:14 | Outpatient (REF) | payer MEDICARE, OTHER, SELFPAY ==
--- NOTE | ~2024-06-02 | CT_ITS ---
EXAMINATION: CT ABDOMEN PELVIS WITHOUT IV CONTRAST HISTORY: chronic diarrhea, pancreatic insuff. COMPARISON: Correlation is made with the report from a prior study dated 02/10/2010. Images are not available for direct comparison. TECHNIQUE: CT scan of the abdomen and pelvis was performed without contrast using standard departmental protocol. Coronal and sagittal reformatted images were generated and reviewed. Intravenous contrast was not utilized at the request of the referring physician. The patient received oral contrast material. This CT exam was performed with one or more of the following dose reduction techniques: automated exposure control, adjustment of the mA and/or kV according to patient size, use of iterative reconstruction technique. DLP: 756 mGy-cm FINDINGS: LOWER CHEST: The visualized lung bases are clear. There is no pleural effusion. CARDIOVASCULATURE: The heart is enlarged. There is mitral annular calcification. There is no pericardial effusion. LIVER: The liver is normal in size and contour. The liver has an unremarkable unenhanced appearance. GALLBLADDER / BILE DUCTS: The gallbladder is unremarkable. There is no intra or extrahepatic biliary ductal dilatation. SPLEEN: The spleen is normal in size and has an unremarkable unenhanced appearance. PANCREAS: The pancreas has an unremarkable unenhanced appearance. ADRENAL GLANDS: There is a 1.2 cm right adrenal nodule measuring 29 HU in density, which is indeterminate for adenoma. However, this was described on the prior examination. The left adrenal gland is unremarkable. KIDNEYS/RETROPERITONEUM: The right kidney is markedly atrophic. There is a 2.5 cm cyst in the interpolar region of the left kidney. No renal calculi are identified. There is no hydronephrosis. LYMPH NODES: No retroperitoneal lymphadenopathy is identified in the abdomen or pelvis. VASCULATURE: An aortic stent graft is noted. MESENTERY/PERITONEUM: No free fluid. No masses. There is no free intraperitoneal gas. STOMACH: There is a moderate hiatal hernia. The remainder of the stomach is collapsed. SMALL BOWEL: The small bowel is normal in caliber. COLON: There is a large amount of stool throughout the colon. 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 APPENDIX: The appendix is not seen, however no inflammatory changes are seen adjacent to the cecum. URINARY BLADDER/PELVIC ORGANS: The urinary bladder is unremarkable. The patient is status post hysterectomy. BONES / SOFT TISSUES: There is severe degenerative disc disease of the lumbar spine. There are cannulated screws in the right femoral neck. CT/CT abdomen pelvis wo IV con IMPRESSION: 1. Markedly atrophic right kidney. 2. Moderate hiatal hernia. 3. Large amount of stool throughout the colon. 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 4. 1.2 cm right adrenal nodule which was described on the prior CT. Electronically signed by: Steven Casey MD 06/05/2024 08:42 AM [facility]
[2024-06-02] MEDS: Barium Sulfate Oral (Vanilla) 450 ML ORAL.SUSP 900 ML PO (17:37)
== END 2024-06-02 15:15 | disposition home or self-care (01) ==
LOC: HO.CT 15:14
PROVIDERS: PCP Internal Medicine; Visit Provider Internal Medicine
DX: K52.9 Noninfective gastroenteritis and colitis, unspecified (principal); K86.89 Other specified diseases of pancreas
CPT/HCPCS: 74176

== ENCOUNTER → 2024-06-02 15:30 | Outpatient (BNV) | payer MEDICARE, OTHER, SELFPAY | PROVIDERS: PCP Internal Medicine; Visit Provider Radiology Diagnostic Radiology | DX: K52.9 Noninfective gastroenteritis and colitis, unspecified (principal) | CPT/HCPCS: 74176 ==

== ENCOUNTER 2024-06-26 09:52 | Outpatient (REF) | payer MEDICARE, OTHER, SELFPAY ==
--- OUTSIDE RECORDS SUMMARY | 2024-06-26 10:42 | XMS_ITS ---
Author Organization [facility] Address [address] [place] [address] Care Team Providers Care Cup Setter Lockstitch Name Role Phone Donal BELTRÁN, [place] Primary Care Provider Steven Irving Unavailable [phone] ALLERGIES Allergen (clinical drug ingredient) Drug/Non Drug Allergy documented on EMR Reaction Allergy Type Onset Date Status Penicillin Unknown Drug Allergy Active contrast dye (uncoded) Unknown Allergy Active REASON FOR VISIT Patient presents today for ANEMIA MEDICATIONS Medication SIG (Take, Route, Frequency, Duration) Notes Start Date End Date Status Allopurinol 100 MG Oral for 90 Not-Taking Cilostazol Not-Takin g Lomotil 2.5-0.025 MG Take 1 or 2 Orally Every morning on a daily and regular basis to try to prevent diarrhea, and then take 1 or 2 every 4 to 6 hours as needed for diarrhea later in the day for 30 days 2023 Active iron 65 mg 1 tablet Oral bid A ctive Mirtazapine Active Clopidogrel Bisulfate 75 MG Oral for 90 Not-Taking Citalopram Hydrobromide Active Breo Ellipta 200-25 MCG/ACT Inhalation for 30 Active Januvia Active Dilt-XR Active Montelukast Sodium A ctive Lansoprazole 30 MG 1 capsule before a meal Orally twice a day /prn Active Vitamin D-3 Active traZODone HCl 50 MG 1 tablet at bedtime Orally Once a day Active Metoprolol Succinate 100 MG 1 capsule Orally Once a day for 30 day(s) Active Torsemide 20 MG 2 tablets Orally Onc e a day Active Atorvastatin Calcium 40 MG 1 tablet Oral ly Once a day Active Vitamin B 12 5000 mg tablet Orally once a day Active dilTIAZem HCl ER 240 MG 1 tablet Orally Once a day for 30 day(s) Active Warfarin Sodium 2 MG 1 tablet Orally Onc e a day for 30 day(s) Active Potassium 1 tab Oral for 14 days Active Incruse Ellipta 62.5 MCG/ACT 1 puff Inhalation Once a day Active Spironolactone 25 MG 1 tablet Orally for 30 day(s) Active SOCIAL HISTORY Tobacco Use: Social History Observation Description Date Details (start date - stop date) Former Smoker NA - NA Sex Assigned At : Social History Observation Description Sex Assigned At Unknown Tobacco Use/Smoking Question Answer Notes Patient is a former smoker PROBLEMS Problem Type ICD Code Onset Dates Problem Status W/U Status Risk SNOMED Code Notes Problem Pancreatic insufficiency (K86.89) Active confirmed Pancreatic insufficiency (34144925) VITAL SIGNS BMI 34.08 kg/m2 03/08/2024 Blood pressure systolic 118 mm Hg 03/08/20 24 Blood pressure diastolic 72 mm Hg 024 Height 62.5 in 03/08/2024 Temperature 95.5 degrees Fahrenheit 03/08/20 24 Weight 189 lb 6 oz lbs 03/08/2024 Encounters Encounter Location Date Provider Diagnosis [facility] [address] [place] [address] 03/08/2024 Steven Haji Gastroesophageal ref lux disease, esophagitis presence not specified K21.9 ; Iron deficiency anemia, unspecified iron deficiency anemia type D50.9 ; Chronic diarrhea K52.9 and Pancreatic insufficiency K86.89 ASSESSMENTS Encounter Date Diagnosis Assessment Notes Treatment Notes Treatment Clinical Notes 03/08/2024 Gastroesophageal ref lux disease, esophagitis presence not specified (ICD-10 - K21.9) 03/08/2024 Iron deficiency anem ia, unspecified iron deficiency anemia type (ICD-10 - D50.9) 03/08/2024 Chronic diarrhea (ICD-10 - K52.9) Continue the daily Lomotil 03/08/2024 Pancreatic insufficiency (ICD-10 - K86.89) PLAN OF TREATMENT Treatment Notes Assessment Notes Chronic diarrhea Continue the daily L omotil Pending Test Test Name Order Date CT ABD & PELVIS WITH PO CONT ONLY 2023 GI PANEL 03/08/2024 Next Appt Details Follow Up: 1 Year, Reason: Provider Name:Steven Haji , 03/07/2025 01:00:00 PM, [address], [address], [place], [address], Progress Notes * Examination Category Sub-Category Detail Notes General Examination GENERAL APPEARANCE: pleasant , well nourished, well developed, in no acute distress--she does appear somewhat pale EYES: sclera non-icteric NECK/THYROID: no cervical lymphade nopathy, neck supple HEART: S1, S2 normal LUNGS: clear to auscultatio n bilaterally ABDOMEN: normal bowel sounds, no guarding or rigidity, no guarding or rigidity, no masses palpable, soft, nontender, nondistended NEUROLOGIC: alert and oriented SKIN: nonjaundiced, no spi cash angiomata EXTREMITIES: no edema ORAL CAVITY: mucosa moist
--- OUTSIDE RECORDS SUMMARY | 2024-06-26 10:42 | XMS_ITS | Clinical Summary ---
Author Organization [facility] Facility Address [address] [place] [id number] Care Team Providers Care Laser Technician Name Role Phone Jamel Mansfield MD Primary Care Provider [phone] Social History Tobacco Use Types Packs/Day Years Used Date Smoking Tobacco: Never Assessed Comments Unknown Sex and Gender Information Value Date Recorded Sex Assigned at Not on file Legal Sex Female 1:50 PM EDT Gender Identity Not on file Sexual Orientation Not on file Plan of Treatment Health Maintenance Due Date Last Done Comments Pneumococcal Vaccine: 65+ Ye ars (2 of 2 - PPSV23 or PCV20) 04/06/2018 02/09/2018 Diabetes: Hemoglobin A1C 10/08/2022 Diabetes: Ophthalmology Exam 10/08/2022 Diabetes: Pedal Pulse Checked 10/08/2022 Diabetes: Sensory Foot Exam 10/08/2022 Diabetes: Visual Foot Exam 10/08/2022 Influenza Vaccine (#1) 2024 02/09/2018 Hepatitis B Vaccine Aged Out No longe r eligible based on patient's age to complete this topic Insurance MEDICARE [facility] Care Teams Laser Technician Relationship Specialty Start Date End Date Jamel Mansfield MD [address] [place] [address] [address] [place] [address] PCP - General Internal Medicine 10/08/22
--- OUTSIDE RECORDS SUMMARY | 2024-06-26 10:42 | XMS_ITS ---
Author Organization [facility] Address [address] [place] [address] Care Team Providers Care Electronic Engineering Draftsperson Name Role Phone Donal BELTRÁN, [place] Primary Care Provider Unava Steven Vazquez Unavailable [phone] REASON FOR VISIT stool specimen rejected Encounters Encounter Location Date Provider Diagnosis [facility] [address] [place] [address] 12/15/2023 Steven Haji PLAN OF TREATMENT Next Appt Details Provider Name:Steven Haji , 03/07/2025 01:00:00 PM, [address], [address], [place], [address],
--- OUTSIDE RECORDS SUMMARY | 2024-06-26 10:42 | XMS_ITS | Patient Health Record ---
Author Organization [facility] Address [address] [place] [address] Care Team Providers Care Test Administrator Name Role Phone Donal BELTRÁN, [place] Primary Care Provider Freeman Lindo Unavailable [phone] Allergies Allergen (clinical drug ingredient) Drug/Non Drug Allergy documented on EMR Reaction Allergy Type Onset Date Status Penicillin hives Drug Allergy Active Iodine hives Drug Allergy Active Reason For Referral No Information Medications Medication SIG (Take, Route, Frequency, Duration) Notes Start Date End Date Status Cilostazol 50 MG 1 tablet 30 minutes before or 2 hours after breakfast and dinner Orally Twice a day for 30 day(s) Active traZODone HCl 50 MG Orally Active Colcrys 0.6 MG 1 tablet Orally Up t o Four times a day for 5 days 10/10/2014 Not-Taking metFORMIN HCl 500 MG 1 tablet with meals Orally Twice a day Not-Taking Colcrys 0.6 MG 1 tablet Orally Once a day for 30 days 10/10/2014 Not-Taking Atorvastatin Calcium 40 MG 1 tablet Orally Once a day Active Mirtazapine 15 MG 1 tablet at bedtime Orally Once a day for 30 day(s) Active Nabumetone 500 MG 1 tablet Orally Twic e a day for 30 day(s) 08/02/2014 Not-Taking Citalopram Hydrobromide 40 MG 0.5 tablet Orally Once a day for 30 day(s) Active Montelukast Sodium 10 MG 1 tablet Orally Once a day for 30 day(s) Active Singulair 10 MG 1 tablet in the even ing Orally Once a day Not-Taking Symbicort 160-4.5 MCG/ACT 2 puffs Inhala tion Twice a day Not-Taking Advair Diskus Active Lansoprazole 30 MG 1 capsule before a m eal Orally Once a day Active Allopurinol 100 MG 1 tablet Orally Once a day for 30 day(s) Active Paxil 30 MG 1 tablet in the morn ing Orally Once a day Not-Taking Warfarin Sodium 5 MG 1 tablet Orally Onc e a day Active Diovan HCT 160-12.5 MG 1 tablet Orally O nce a day Not-Taking dilTIAZem HCl ER Beads 240 MG 1 capsule Orally Once a day for 30 day(s) Active Januvia 100 MG 1 tablet Orally Once a day for 30 day(s) Not-Taking Metoprolol Tartrate Active Losartan Potassium 100 MG 1 tablet Orall y Once a day for 30 day(s) Active Immunizations Vaccine Route Administration Date Status Comme nts COVID-19 Pfizer BioNTech Vaccine Unknown 02/14/2022 Administered 1st 06/21/20,07/12/20 03/14/21 Influenza Unknown 02/14/2022 Administered Social History Tobacco Use: Social History Observation Description Date Details (start date - stop date) Former Smoker NA - NA Tobacco Use/Smoking Question Answer Notes Are you a: former smoker Additional Findings: Tobacco Non-User Current no n-smoker Alcohol Screen Question Answer Notes Did you have a drink containing alcohol in the p ast year? Yes Points 0 Interpretation Negative Tobacco use other than smoking: Question Answer Notes Are you an other tobacco user? No Problems Problem Type SNOMED Code ICD Code Onset Dates Problem Status W/U Status Risk Notes Problem 61998108 Type 2 diabetes mellitus with diabetic polyneuropathy (E11.42) Active confirmed Problem Unspecified atherosclerosis of [place] arteries of extremities, bilateral legs (I70.203) Active confirmed Problem Acquired hammer toe of left foot (4732683819966989 ) Other hammer toe(s) (acquired), left foot (M20.42) Active confirmed Problem Polyneuropathy due to type 2 diabetes mellitus (620185128) Type 2 diabetes mellitus with diabetic polyneuropathy (E11.42) Active confirmed Problem Polyneuropathy due to diabetes mellitus type I (168877355) Type 1 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) Active confirmed Plan Of Treatment Pending Test Test Name Order Date X ray : Foot, left 2V 08/02/2014 X ray : Foot, left 2V 08/22/2014 X ray : Foot, left 2V 08/30/2014 X ray : Foot, left 2V 09/13/2014 X ray : Foot, right 2V 10/10/2014 *Uric Acid, Serum 10/10/2014 *Sedimentation Rate-Devonren 5 68333-HPDGADP NAIL, 1-5 09/13/2014 91479-XOOG SKIN LESIONS, 2 TO 4 07/23/19 21 08464-PZDT SKIN LESIONS, 2 TO 4 10/22/19 21 48357-FGWD SKIN LESIONS, 2 TO 4 01/14/20 21 47757-POZG SKIN LESIONS, 2 TO 4 04/23/20 21 20848-IDHJ SKIN LESIONS, 2 TO 4 08/07/19 22 73733, X3841-YBFMP/INJECT, JOINT/BURSA 0 10/24/2015 26765, J0702- Neuroma/Injection 05/31/19 15 59717, J0702- Neuroma/Injection 10/26/19 15 Insurance Providers Payer Name Payer Address Payer Phone Subscriber Number Group Number Insured Name Patient Relationship to Insured Coverage Start Date Coverage End Date Medicare [employer] [address] [facility] [place] [address] [id number] Alice Martinez Self - patient is the insured [facility] [address] [place] [address] [id number] Alice Martinez Self - patient is the insured Medical (General) History Medical History History ICD Code Anxiety Arthritis asthma Cholesterol Depression High blood pressure Lung disease Anemia Back,Hip,and Knee pain Broken bones Cataracts Gout Kidney disease Neuropathy Reflux ( GERD) chronic sinusitis Measles Chicken pox Joint implants/screws D.A.D type II diabetes Surgical History Surgery Date(Month/Year) pins in right hip 02/13/2014 hysterectomy 1973 tonsillectomy 1945 back surgery bladder suspension 1997 appendectomy 1960 lipoma nye Bun, left 08/16/2014 hip surgery 2014 Stent main artery 08/14/20 angioplasty legs Guille 12/10/2020 Hospitalization History Reason Date(Month/Year) [facility] Bunion surgery left foot 08/16/14 [facility] vascular sx 08/14/20-08/21/20
--- OUTSIDE RECORDS SUMMARY | 2024-06-26 10:42 | XMS_ITS | Patient Health Record ---
Author Organization [facility] Address [address] [place] [address] Care Team Providers Care Hse Specialist Name Role Phone Donal BELTRÁN, [place] Primary Care Provider Steven Irving [phone] ALLERGIES Allergen (clinical drug ingredient) Drug/Non Drug Allergy documented on EMR Reaction Allergy Type Onset Date Status Penicillin Unknown Drug Allergy Active contrast dye (uncoded) Unknown Allergy Active RESULTS Component Value Reference Range Notes Leukocytes Stool Qualitative Reviewed date:12/15/2023 11:09:11 PM Interpretation: Performing Lab:[facility], [address] [place] [address] Notes/Report: Leukocytes Stool Qualitative NEGATIVE NEGATIVE Pancreatic Elastase-1 Reviewed date:01/01/2024 10:04:49 PM Interpretation: Performing Lab:[facility], [address] [place] [phone] Notes/Report: Pancreatic Elastase-1 123 Adult and Pediatric Reference Ranges for Pancreatic Elastase-1: Normal: >200 mcg/g Moderate Pancreatic Insufficiency: 100-200 mcg/g Severe Pancreatic Insufficiency: <100 mcg/g Elastase-1 (E-1) assay results are expressed in mcg/g, which represent mcg E1/g feces. It is not necessary to interrupt enzyme substitution therapy. THIS TEST WAS PERFORMED AT: [facility] [address] [place] [address] BRENDON FOSTER MD,PHD,LILIANA Fecal Fat Qualitative Reviewed date:12/25/2023 01:02:36 AM Interpretation: Performing Lab:[facility], [address] [place] [address] Notes/Report: Fecal Fat Qualitative Normal Normal THIS TEST WAS PERFORMED AT: [facility] [address] [place], [place] JANNY BOCANEGRA MD,PHD Calprotectin, Fecal Reviewed date:12/25/2023 01:02:53 AM Interpretation: Performing Lab:[facility], [address] [place] [address] Notes/Report: Calprotectin, Fecal 126 Reference Range: <50 Normal 50-120 Borderline >120 Elevated Calprotectin in Crohn's disease and ulcerative colitis can be five to several thousand times above the reference population (50 mcg/g or less). Levels are usually 50 mcg/g or less in healthy patients and with irritable bowel syndrome. Repeat testing in 4-6 weeks is suggested for borderline values. THIS TEST WAS PERFORMED AT: [facility] [address] [place] [address] BRENDON FOSTER MD,PHD,LILIANA Ova and Parasite Reviewed date:12/29/2023 06:45:37 PM Interpretation: Performing Lab:[address] [address] Notes/Report: Ova and Parasite SEE NOTE OVA AND PARASITES, CONC AND PERM SMEAR Micro Number: [id number] Test Status: Final Specimen Source: Stool Specimen Quality: Adequate CONCENTRATION 1: No ova or parasites seen TRICHROME 1: No ova or parasites seen Routine Ova and Parasite exam may not detect some parasites that occasionally cause diarrheal illness. Cryptosporidium Antigen and/or Cyclospora and Isospora Exam may be ordered to detect these parasites. One negative sample does not necessarily rule out the presence of a parasitic infection. For additional information, please refer to https://education.TV TubeX.Theranos/faq/PBT472 (This link is being provided for informational/ educational purposes only.) THIS TEST WAS PERFORMED AT: [facility] [address] [address] SUGEY QUEVEDO MD CDiff Gene PCR Reviewed date:12/15/2023 11:09:17 PM Interpretation: Performing Lab:[address] [address] Notes/Report: CDiff Gene PCR NEGATIVE Negative If C. difficile strongly suspected despite one negative test, a second test may be sent vs. empiric treatment for C. difficile infection. GI PANEL Reviewed date:01/01/2024 10:03:38 PM Interpretation: Performing Lab:[facility], [address] [place] [address] Notes/Report: Campylobacter Not Detected Not Detect. Plesiomonas shigelloides Not Detected Not Detect. Salmonella Not Detected Not Detect. Vibrio Not Detected Not Detect. Vibrio Cholerae Not Detected Not Detect. Yersinia enterocolitica Not Detected Not Detect. E. coli EAEC Not Detected Not Detect. E. coli EPEC Detected Not Detect. E. coli ETEC Not Detected Not Detect. E. coli STEC Not Detected Not Detect. E. coli O157 Not applicable Not Detect. E. coli containing the O157 antigen are a subset of Shiga-like toxin-producing E. coli (STEC). Shigella sp./EIEC Not Detected Not Detect. Cryptosporidium Not Detected Not Detect. Cyclospora cayetanensis Not Detected Not Detect. Entamoeba histolytica Not Detected Not Detect. Giardia lamblia Not Detected Not Detect. Adenovirus F 40/41 Not Detected Not Detect. Astrovirus Not Detected Not Detect. Norovirus GI/GII Not Detected Not Detect. Rotavirus A Not Detected Not Detect. Sapovirus Not Detected Not Detect. All results must be correlated with clinical findings. Negative results do not exclude the possibility of gastrointestinal infection and should not be used as the sole basis for diagnosis, treatment, or other management decisions. Virus, bacteria, and parasite nucleic acid may persist in vivo independently of organism viability. Additionally, some organisms may be carried symptomatically. Detection of organism targets does not imply that the corresponding organisms are infectious or are the causative agents for clinical symptoms. There is a risk of false negative values due to the presence of sequence variants in the gene targets of the assay, amplification inhibitors in specimens, or inadequate numbers of organisms for amplification. The identification of several diarrheagenic E. coli pathotypes has historically relied upon phenotypic characteristics. This panel targets genetic determinants characteristic of most pathogenic strains, but may not detect all strains having phenotypic characteristics of a pathotype. The performance of this test has not been established for monitoring treatment of infection with any of the panel organisms. This assay is performed by Multiplexed PCR, utilizing the Fi.tt Film Array. MAMMOGRAM DIGITAL BILATERAL SCREEN Reviewed date:03/08/2024 01:31:20 PM Interpretation:Normal Performing Lab: Notes/Report: Normal GI PANEL Reviewed date:04/25/2024 09:24:57 PM Interpretation: Performing Lab:[facility], [address] [place] [address] Notes/Report: Campylobacter Not Detected Not Detect. Plesiomonas shigelloides Not Detected Not Detect. Salmonella Not Detected Not Detect. Vibrio Not Detected Not Detect. Vibrio Cholerae Not Detected Not Detect. Yersinia enterocolitica Not Detected Not Detect. E. coli EAEC Not Detected Not Detect. E. coli EPEC Not Detected Not Detect. E. coli ETEC Not Detected Not Detect. E. coli STEC Not Detected Not Detect. E. coli O157 Not applicable Not Detect. E. coli containing the O157 antigen are a subset of Shiga-like toxin-producing E. coli (STEC). Shigella sp./EIEC Not Detected Not Detect. Cryptosporidium Not Detected Not Detect. Cyclospora cayetanensis Not Detected Not Detect. Entamoeba histolytica Not Detected Not Detect. Giardia lamblia Not Detected Not Detect. Adenovirus F 40/41 Not Detected Not Detect. Astrovirus Not Detected Not Detect. Norovirus GI/GII Not Detected Not Detect. Rotavirus A Not Detected Not Detect. Sapovirus Not Detected Not Detect. All results must be correlated with clinical findings. Negative results do not exclude the possibility of gastrointestinal infection and should not be used as the sole basis for diagnosis, treatment, or other management decisions. Virus, bacteria, and parasite nucleic acid may persist in vivo independently of organism viability. Additionally, some organisms may be carried asymptomatically. Detection of organism targets does not imply that the corresponding organisms are infectious or are the causative agents for clinical symptoms. There is a risk of false negative values due to the presence of sequence variants in the gene targets of the assay, amplification inhibitors in specimens, or inadequate numbers of organisms for amplification. The identification of several diarrheagenic E. coli pathotypes has historically relied upon phenotypic characteristics. This panel targets genetic determinants characteristic of most pathogenic strains, but may not detect all strains having phenotypic characteristics of a pathotype. The performance of this test has not been established for monitoring treatment of infection with any of the panel organisms. This assay is performed by Multiplexed PCR, utilizing the Biofire Film Array. CT abdomen pelvis wo con (No t yet reviewed by provider) Interpretation: Performing Lab: Notes/Report: [address] [address] [address] Scan Report Signed Patient: Alice Carter MR#: [id number] 89 : 1940 Acct:[id number] Age/Sex: 83 / F ADM Date: 06/02/24 Loc: HO.CT Attending Dr: Steven Haji MD Ordering Physician: Steven Haji MD Date of Service: 06/02/24 Procedure(s): CT abdomen pelvis wo IV con Accession Number(s): [id number] cc: Jamel Mansfield MD; Steven Haji MD Report Number: [id number]: Total DLP = 756.00 mGy-cm EXAMINATION: CT ABDOMEN PELVIS WITHOUT IV CONTRAST HISTORY: chronic diarrhea, pancreatic insuff. COMPARISON: Correlation is made with the report from a prior study dated 02/10/2010. Images are not available for direct comparison. TECHNIQUE: CT scan of the abdomen and pelvis was performed without contrast using standard departmental protocol. Coronal and sagittal reformatted images were generated and reviewed. Intravenous contrast was not utilized at the request of the referring physician. The patient received oral contrast material. This CT exam was performed with one or more of the following dose reduction techniques: automated exposure control, adjustment of the mA and/or kV according to patient size, use of iterative reconstruction technique. DLP: 756 mGy-cm FINDINGS: LOWER CHEST: The visualized lung bases are clear. There is no pleural effusion. CARDIOVASCULATURE: The heart is enlarged. There is mitral annular calcification. There is no pericardial effusion. LIVER: The liver is normal in size and contour. The liver has an unremarkable unenhanced appearance. GALLBLADDER / BILE DUCTS: The gallbladder is unremarkable. There is no intra or extrahepatic biliary ductal dilatation. SPLEEN: The spleen is normal in size and has an unremarkable unenhanced appearance. PANCREAS: The pancreas has an unremarkable unenhanced appearance. ADRENAL GLANDS: There is a 1.2 cm right adrenal nodule measuring 29 HU in density, which is indeterminate for adenoma. However, this was described on the prior examination. The left adrenal gland is unremarkable. KIDNEYS/RETROPERITONEUM: The right kidney is markedly atrophic. There is a 2.5 cm cyst in the interpolar region of the left kidney. No renal calculi are identified. There is no hydronephrosis. LYMPH NODES: No retroperitoneal lymphadenopathy is identified in the abdomen or pelvis. VASCULATURE: An aortic stent graft is noted. MESENTERY/PERITONEUM: No free fluid. No masses. There is no free intraperitoneal gas. STOMACH: There is a moderate hiatal hernia. The remainder of the stomach is collapsed. SMALL BOWEL: The small bowel is normal in caliber. COLON: There is a large amount of stool throughout the colon. 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 APPENDIX: The appendix is not seen, however no inflammatory changes are seen adjacent to the cecum. URINARY BLADDER/PELVIC ORGANS: The urinary bladder is unremarkable. The patient is status post hysterectomy. BONES / SOFT TISSUES: There is severe degenerative disc disease of the lumbar spine. There are cannulated screws in the right femoral neck. CT/CT abdomen pelvis wo IV con IMPRESSION: 1. Markedly atrophic right kidney. 2. Moderate hiatal hernia. 3. Large amount of stool throughout the colon. 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 4. 1.2 cm right adrenal nodule which was described on the prior CT. Electronically signed by: Steven Casey MD 06/05/2024 08:42 AM EST Dictated By: Steven Casey MD Signed By: <Electronically signed by Steven Casey MD in OV> 06/05/24 0842 DD/ 1530 TD/TT: 06/02/24 1738 [place]: REASON FOR REFERRAL No Information MEDICATIONS Medication SIG (Take, Route, Frequency, Duration) Notes Start Date End Date Status traZODone HCl 50 MG 1 tablet at bedtime Orally Once a day Active Metoprolol Succinate 100 MG 1 capsule Orally Once a day for 30 day(s) Active Mirtazapine Active Torsemide 20 MG 2 tablets Orally Onc e a day Active Clopidogrel Bisulfate 75 MG Oral for 90 Not-Taking dilTIAZem HCl ER 240 MG 1 tablet Orally Once a day for 30 day(s) Active Januvia Active Warfarin Sodium 2 MG 1 tablet Orally Onc e a day for 30 day(s) Active Citalopram Hydrobromide Active Potassium 1 tab Oral for 14 days Active Dilt-XR Active Incruse Ellipta 62.5 MCG/ACT 1 puff Inhalation Once a day Active Montelukast Sodium A ctive Lansoprazole 30 MG 1 capsule before a meal Orally twice a day /prn Active Allopurinol 100 MG Oral for 90 Not-Taking Spironolactone 25 MG 1 tablet Orally for 30 day(s) Active Vitamin D-3 Active Cilostazol Not-Takin g Atorvastatin Calcium 40 MG 1 tablet Oral ly Once a day Active Breo Ellipta 200-25 MCG/ACT Inhalation for 30 Active Vitamin B 12 5000 mg tablet Orally once a day Active Lomotil 2.5-0.025 MG Take 1 or 2 Orally Every morning on a daily and regular basis to try to prevent diarrhea, and then take 1 or 2 every 4 to 6 hours as needed for diarrhea later in the day for 30 days 2023 Active iron 65 mg 1 tablet Oral bid A ctive IMMUNIZATIONS Vaccine Route Administration Date Status Comme nts Flu vaccine no Preserv 3 and > Unknown 03/30/2016 Admin istered Influenza Unknown 01/24/2020 Administered Influenza Unknown 02/14/2021 Administered Influenza Unknown 02/17/2023 Administered Influenza Unknown 03/02/2023 Administered Pneumococcal Unknown 03/02/2023 Administered SOCIAL HISTORY Tobacco Use: Social History Observation Description Date Details (start date - stop date) Former Smoker NA - NA Sex Assigned At : Social History Observation Description Sex Assigned At Unknown Tobacco Use/Smoking Question Answer Notes Patient is a former smoker PROBLEMS Problem Type ICD Code Onset Dates Problem Status W/U Status Risk SNOMED Code Notes Problem Diarrhea, unspecified (R19.7) Active confirmed Diarrhea (64975901) Problem Gastroesophageal reflux disease, esophagitis presence not specified (K21.9) Active confirmed 250628476 Problem Heme + stool (R19.5) Active confirmed 44662420 Problem Anemia (D64.9) Active confirmed Anemia (574929477) Problem Iron deficiency anemia due to chronic blood loss (D50.0) Active confirmed 614452276 Problem Microcytic anemia (D50.9) Active confirmed 802025061 Problem Angiodysplasia of colon (K55.20) Active confirmed 263407400 Problem Iron deficiency anemia, unspecified iron deficiency anemia type (D50.9) Active confirmed 08194594 Problem Diarrhea, unspecified type (R19.7) Active confirmed 32341282 Problem Chronic diarrhea (K52.9) Active confirmed Chronic diarrhe a (214836513) Problem 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) Active confirmed 17486918 Problem Pancreatic insufficiency (K86.89) Active confirmed Pancreatic insufficiency (51835398) Problem Fecal soiling due to fecal incontinence (R15.9) Active confirmed Incontinence of feces (22073795) VITAL SIGNS Temperature 95.5 degrees Fahrenheit 03/08/2024 Blood pressure diastolic 72 mm Hg 03/08/2024 Height 62.5 in 03/08/2024 Blood pressure systolic 118 mm Hg 03/08/2024 Weight 189 lb 6 oz lbs 03/08/2024 BMI 34.08 kg/m2 03/08/2024 Encounters Encounter Location Date Provider Diagnosis [facility] [address] [place] [phone] 09/07/2023 Steven Haji Diarrhea, unspecifie d type R19.7 and Iron deficiency anemia due to chronic blood loss D50.0 [facility] [address] [place] [phone] 03/08/2024 Steven Haji Gastroesophageal ref lux disease, esophagitis presence not specified K21.9 ; Iron deficiency anemia, unspecified iron deficiency anemia type D50.9 ; Chronic diarrhea K52.9 and Pancreatic insufficiency K86.89 [facility] [address] [place] [phone] 11/30/2023 Steven Haji Diarrhea, unspecifie d R19.7 [facility] [address] [place] [phone] 12/06/2023 Steevn Haji Chronic diarrhea K52 .9 [facility] [address] [place] [phone] 12/15/2023 Steven Haji [facility] [address] [phone] 03/19/2024 Steven Haji ASSESSMENTS Encounter Date Diagnosis Assessment Notes Treatment Notes Treatment Clinical Notes 09/07/2023 Iron deficiency anem ia due to chronic blood loss (ICD-10 - D50.0) 09/07/2023 Diarrhea, unspecifie d type (ICD-10 - R19.7) Start using some Imodium first thing in the morning when you wake up to try to prevent the diarrhea, and then use it later in the day as needed as well. Ask Dr. Mansfield about stopping the Magnesium to see if that would help the dairrhea 03/08/2024 Gastroesophageal ref lux disease, esophagitis presence not specified (ICD-10 - K21.9) 03/08/2024 Iron deficiency anem ia, unspecified iron deficiency anemia type (ICD-10 - D50.9) 11/30/2023 Diarrhea, unspecifie d (ICD-10 - R19.7) 12/06/2023 Chronic diarrhea (ICD-10 - K52.9) 03/08/2024 Chronic diarrhea (ICD-10 - K52.9) Continue the daily Lomotil 03/08/2024 Pancreatic insufficiency (ICD-10 - K86.89) PLAN OF TREATMENT Pending Test Test Name Order Date Hemoccult Cards (Non-Screening) 03/11/20 21 IRON + IBC (FE) 05/20/2021 IRON + IBC (FE) 01/27/2022 IRON + IBC (FE) 05/02/2016 IRON + IBC (FE) 03/19/2021 FERRITIN 05/02/2016 VITAMIN B12 AND FOLATE 01/27/2022 CBC w DIFF 05/02/2016 CBC w DIFF 01/27/2022 CBC w DIFF 03/19/2021 CBC w DIFF 05/20/2021 CBC w DIFF 03/11/2021 CBC w DIFF 01/27/2022 CELIAC PANEL #10 04/29/2016 TRYPSIN,STOOL 12/06/2023 CT ABD & PELVIS WITH PO CONT ONLY 2023 STOOL WBC 11/30/2023 STOOL WBC 12/06/2023 C DIFFICILE RFLX PCR 11/30/2023 C DIFFICILE RFLX PCR 12/06/2023 Ferritin 01/27/2022 Ferritin 03/19/2021 Pancreatic Elastase-1 12/06/2023 Fecal Fat Qualitative 12/06/2023 Calprotectin, Fecal 12/06/2023 Calprotectin, Fecal 11/30/2023 CT abdomen pelvis wo con 06/02/2024 Ova and Parasite 12/06/2023 Ova and Parasite 11/30/2023 GI PANEL 12/06/2023 GI PANEL 03/08/2024 GI PANEL 11/30/2023 Future Test Test Name Order Date UPPER GI ENDOSCOPY 04/18/2014 UPPER GI ENDOSCOPY 05/02/2016 COLONOSCOPY 05/02/2016 UPPER GI ENDOSCOPY 01/27/2022 COLONOSCOPY 01/27/2022 Next Appt Details Provider Name:Steven Haji , 03/07/2025 01:00:00 PM, [address] [place] [address], [address], [place], [address], Insurance Providers Payer Name Payer Address Payer Phone Subscriber Number Group Number Insured Name Patient Relationship to Insured Coverage Start Date Coverage End Date MEDICARE OF [place] [address] [place] [address] [id number] ALICE CARTER Self - patient is the insured [facility] [address] [place] [phone] [id number] ALICE CARTER Self - patient is the insured MEDICAL (GENERAL) HISTORY Medical History History ICD Code 10/25/2009 Colonoscopy--neg except for h yperplastic polyps--no IBD Tubular adenomas removed in 2002 GERD-EGD in 1997--HH, but ot herwise negative; EGD 05/2014 small HH, no esophagitis, small area of Aguilera's--no dysplasia Depression Hyperlipidemia NIDDM COPD Hypertension Denies [place],CVA,renal disease Microcytic anemia in 2015--h emoglobin 10.8 with MCV 72 in April 2016--- she underwent an upper endoscopy and colonoscopy in June of 2016--the upper endoscopy revealed only a small hiatal hernia and duodenal biopsies were negative for celiac disease; the colonoscopy revealed nonbleeding angiodysplasias, a small tubular adenoma and hyperplastic polyp, and biopsies were negative for any sign of microscopic or collagenous colitis--after being treated with iron her hemoglobin increased to 13.4 with a normal MCV in October of 2016 Colonoscopy with AVM's as above Urinary incontinence Fecal Incontinence Peripheral vascular disease with procedu res as below Recurrent iron deficiency an emia with heme-positive stool in 2020 while on aspirin and Plavix for peripheral vascular disease. She had a normal CBC in 2019 when she was not on any blood thinners. Toward the end of 2020 she did receive a blood transfusion and iron infusion. In April 2021 her aspirin was stopped but she did continue the Plavix. Her Hgb improved to 12.6 on 06/30/2021 She describes a history of a ortic stenosis and mitral valve stenosis. She is being followed by a farm service adviser Hospitalized 01/2022 for recu rrent anemia--Hgb 7.7 and needed 2 u PRBC--Hgb 8.9 on 01/22 Negative small bowel video capsule study in 2021 Her anemia improved and was resolved as of the 06/2022 OV while on Iron BID and Plavix, but off her aspirin Hospitalized in Spring 2022 with pneumonia, Afib, and CHF, and rehab for 2 weeks. Diarrhea-2023 low stool tryp sin and elastase levels, stool for fecal fat was negative. 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 This was not treated as I was not really convinced it was a true pathogen and I did not want to risk giving her an antibiotic that could cause a secondary diarrhea or C. difficile infection Surgical History Surgery Date(Month/Year) Appendectomy Complete hysterectomy Lumpectomy-benign Back surgery Bladder suspension Right hip fracture with screws in 01/2014 after a fall Left toe surgery Vascular stenting for LE's w ith an upside down Y from aorta into iliacs as described by the patient-Dr. Siddiqi at [facility] 08/14/2020 and 11/2020 Hospitalization History Reason Date(Month/Year) Hospitalized for 2 weeks due to pneumonia, CHF, and Afib, and then rehab for 2 weeks. Spring 2022
--- OUTSIDE RECORDS SUMMARY | 2024-06-26 10:43 | XMS_ITS ---
Author Organization [facility] Address [address] [place] [address] Care Team Providers Care Territory Account Representative Name Role Phone Donal BELTRÁN, [place] Primary Care Provider Unava Steven Vazquez Unavailable [phone] Encounters Encounter Location Date Provider Diagnosis [facility] [address] [place] [address] 03/19/2024 Steven Haji PLAN OF TREATMENT Next Appt Details Provider Name:Steven Haji , 03/07/2025 01:00:00 PM, [address], [address], [place], [address],
[2024-06-26 13:14] LABS: MANUAL DIFF FLAG NO
[2024-06-26 13:23] LABS: Appearance Urine Cloudy; Color Urine Yellow; Glucose Urine UA >=1000 mg/dL (Negative); Leukocyte Esterase Urine Trace (Negative); Nitrite Urine Negative (Negative); UMIC TRIGGER UACC YES; Urine Blood Negative (Negative); Urine Ketones Negative (Negative); Urine Protein Negative (Neg-Trace)
[2024-06-26 13:33] LABS: Basophils Absolute Auto 0.1 X10*3/uL (0.0-0.2); Basophils Percent Auto 0.5 % (0-2); Eosinophils Absolute Auto 0.4 X10*3/uL (0.0-0.4); Eosinophils Percent Auto 4.4 % (0-4); Hematocrit 40.6 % (37.0-47.0); Hemoglobin 12.7 g/dl (12.0-16.0); Imm Gran Abs Auto 0.05 X10*3/uL (0.00-0.03); Imm Gran Pct Auto 0.5 % (0.0-0.4); Lymphocytes Absolute Auto 0.7 X10*3/uL (1.2-4.9); Lymphocytes Percent Auto 7.2 % (20-40); Mean Corpuscular HGB Conc 31.3 g/dl (31.0-35.0); Mean Corpuscular Hemoglobin 29.1 pg (27.0-33.0); Mean Corpuscular Volume 93.1 fL (80.0-98.0); Mean Platelet Volume 9.7 fL (9.4-12.3); Monocytes Absolute Auto 0.8 X10*3/uL (0.1-1.2); Monocytes Percent Auto 8.5 % (2-11); Neutrophils Absolute Auto 7.2 x10*3/uL (2.0-8.3); Neutrophils Percent Auto 78.9 % (45-73); Platelet Count 278 X10*3/uL (160-400); Red Blood Count 4.36 X10*6/uL (4.20-5.50); Red Cell Distribution Width 15.3 % (11.0-16.0); White Blood Count 9.2 X10*3/uL (4.8-10.8)
[2024-06-26 13:34] LABS: Bacteria Urine Trace (None Seen); Hyaline Casts Urine 0-2 /LPF (0-2); RBC Urine 0-2 /HPF (0-2); UACC Culture Trigger YES
[2024-06-26 13:36] LABS: Estimated Average Glucose 131 mg/dL; Hemoglobin A1C 151.4682 umol/L; Hemoglobin A1c % 6.2 % (<6.0); Total Hemoglobin (HGBA1C) 3397.5164 umol/L
[2024-06-26 13:48] LABS: Alanine Aminotransferase 14 U/L (0-31); Albumin Level 3.9 g/dL (3.5-5.0); Alkaline Phosphatase 85 U/L (39-117); Anion Gap 12 (12-20); Aspartate Amino Transferase 20 U/L (5-31); Bilirubin Total 0.4 mg/dL (0.0-1.0); Blood Urea Nitrogen 26 mg/dL (9-16); Calcium 9.9 mg/dL (8.4-10.2); Carbon Dioxide 22 mmol/L (22-29); Chloride 112 mmol/L (96-108); Cholesterol 129 mg/dL (<200); Estimated Glomerular Filt Rate 44; Glucose Fasting 145 mg/dL (60-99); HDL Cholesterol 26 mg/dL (>40); LDL Cholesterol Calculated 84 mg/dL (<100); Potassium 4.6 mmol/L (3.3-5.1); Sodium 141 mmol/L (135-145); Total Protein 7.6 g/dL (6.5-8.0); Triglycerides 96 mg/dL (<150)
== END 2024-06-26 09:53 | disposition home or self-care (01) ==
LOC: HO.HMGCLDS 09:52
PROVIDERS: PCP Internal Medicine; Visit Provider Internal Medicine
DX: E78.00 Pure hypercholesterolemia, unspecified (principal); D64.9 Anemia, unspecified; E11.9 Type 2 diabetes mellitus without complications; R30.0 Dysuria
CPT/HCPCS: 36415; 80053; 80061; 81001; 83036; 85025; 87086

== ENCOUNTER 2024-06-30 13:39 | Outpatient (AMB) | payer MEDICARE, OTHER, SELFPAY ==
[2024-06-30 13:41] VITALS: BP 110/68; PULSE 47; O2SAT 95; BMI 33.4
--- NOTE | 2024-06-30 13:41 | A.OFFPC_ITS ---
Vital Signs 06/30/24 13:41 Height 5 ft 2 in Weight 182 lb 6 oz BMI 33.4 BP 110/68 Blood Pressure Location Lt brachial Position Sitting Pulse 47 L Pulse Source Pulse Oximeter Pulse Oximetry (%) 95 Oxygen Delivery Method Room Air Intake Visit Reasons: 3mth f/u [employer] Executive Required: No Accompanied by: Self / Same As Patient Allergies Iodinated Contrast Media [IV DYE, IODINE CONTAINING CONTRAST ] Allergy (Severe, Verified 06/30/24 14:29) HIVE Penicillins [PENICILLINS] Allergy (Severe, Verified 06/30/24 14:29) HIVES Medication List - Last Reconciled 06/30/24 by Jamel Mansfield MD albuterol sulfate 90 mcg/actuation (Ventolin HFA) 2 puffs inhalation Q4-6H PRN allopurinol 100 mg PO DAILY 90 days atorvastatin (Lipitor) 80 mg PO DAILY cholecalciferol (vitamin D3) 50 mcg PO DAILY 90 days citalopram mg PO clotrimazole-betamethasone 1-0.05 % 1 appl topical BID 2 weeks dapagliflozin propanediol (Farxiga) 5 mg PO QAM diltiazem HCl ER 240 mg PO DAILY diphenoxylate-atropine 2.5-0.025 mg tabs PO ferrous sulfate (Feosol) 325 mg PO BID fluticasone furoate-vilanterol 200-25 mcg/dose (Breo Ellipta) 1 ea inhalation DAILY Incruse Ellipta 62.5 mcg/actuation (umeclidinium) 1 inh inhalation DAILY 30 days NS Januvia (sitagliptin phosphate) 100 mg PO DAILY 30 days NS lansoprazole (Prevacid) 30 mg PO DAILY@0630 magnesium 400 mg PO DAILY mecobalamin (vitamin B12) 5,000 mcg PO DAILY melatonin 10 mg PO BEDTIME PRN metoprolol succinate ER 75 mg PO DAILY mirtazapine 15 mg PO BEDTIME montelukast 10 mg PO DAILY nystatin 1 appl topical TID 10 days potassium chloride ER 50 mEq PO DAILY prothrombin time/INR test metr (Coaguchek XS Pro) As directed prothrombin time/INR test metr (Coaguchek XS Pro) As directed spironolactone 25 mg PO DAILY torsemide 40 mg PO DAILY trazodone 50 mg PO BEDTIME PRN warfarin Take 1 tablet daily or as instructed orally; Tobacco use date assessed: 06/30/24 Fall risk assessment: 1 Fall in past year Last assessed Fall Risk: 06/30/24 Dental Screening Dental Screen Date: 06/30/24 Did you have a dental visit in the last 12 months?: Yes Did you have a dental problem in the last 6 months where you did not have access to dental care?: No Was dental information given to patient?: Patient has dentist HPI 3mth f/u HPI Details Patient comes in today for her follow up visit States that she currently feels okay Relates that she went to the ER at [facility] last week for chest pains but was advised that her work ups came out okay She denies any headaches or dizziness Denies any recurrence of her chest pains from last week, no increased SOB No nausea/vomiting, no abdominal pain No change in bowel habits noted - still has occasional diarrhea at times Relates that she was sent for abdominal CT by Dr. Haji last month and she would like to know if we got her results She still has frequent pain in her right shoulder (especially over the back of the shoulder) that radiates down to her right upper arm and right elbow area She had her follow up labs done a few days ago - to discuss her results [facility] Medical History Pneumonia Chronic diastolic heart failure CHF (congestive heart failure) Thrush, oral GI bleed Occult blood positive stool Microcytic anemia Valvular heart disease Exertional dyspnea Hemorrhagic cystitis Osteopenia Toxic multinodular goiter Obesity (BMI 30-39.9) Hearing impairment Peripheral vascular disease Obesity (BMI 30-39.9) Depression Anxiety Osteoarthritis of ankle and foot Vitamin D deficiency Allergic rhinitis Anemia GERD without esophagitis Gout Hypomagnesemia Multiple thyroid nodules Pure hypercholesterolemia Benign essential hypertension PSVT (paroxysmal supraventricular tachycardia) PAC (premature atrial contraction) COPD (chronic obstructive pulmonary disease) Chronic kidney disease (CKD), stage III (moderate) Type 2 diabetes mellitus with diabetic chronic kidney disease Sciatica of right side Surgical History History of colonoscopy History of angioplasty of peripheral vessel (~08/13/20) History of biopsy History of neck surgery History of cataract surgery History of bladder surgery History of tonsillectomy and adenoidectomy History of appendectomy History of hysterectomy Family History Father Stroke CVD (cardiovascular disease) Mother CVD (cardiovascular disease) Hypertension CAD (coronary artery disease) Other Mental health disorder Social History Household Members: None Housing: Condominium Do you presently have visiting nurse or other home services: Yes (superintendent storage area once per week- [facility]) Alcohol intake: current Alcohol intake frequency: holidays/special occasions only Alcohol type: beer and hard liquor Patient Tobacco Use Status: Former Tobacco user Tobacco use type: Cigarette Cigarette Packs Per Day: 2 Cigarettes Per Day: 40.0 Years Smoked: 40 e-Cigarette/Vaping Use: Never Used Second Hand Smoke Exposure: Yes service: No Current occupational status: retired Cognitive needs: Yes (cane) Hearing needs: Yes Vision needs: Yes Questionnaire PHQ-9 Over the last 2 weeks, how often have you been bothered by any of the following problems? 1. Little interest or pleasure in doing things: not at all 2. Feeling down, depressed, or hopeless: not at all 3. Trouble falling or staying asleep, or sleeping too much: not at all 4. Feeling tired or having little energy: not at all 5. Poor appetite or overeating: not at all 6. Feeling bad about yourself - or that you are a failure or have let yourself or your family down: not at all 7. Trouble concentrating on things, such as reading the newspaper or watching television: not at all 8. Moving or speaking so slowly that other people could have noticed. Or the opposite - being so fidgety or restless that you have been moving around a lot more than usual: not at all 9. Thoughts that you would be better off or of hurting yourself in some way: not at all Total score: 0 Depression Screening Interpretation: Negative Depression Screening Done: Yes 89636 - PHQ-9 Billing: Yes Source: Developed by Drs. Steven Hebert, Ursula Watson, Jared Joshi and colleagues, with an educational fredrick from [employer]. Thrive Questionnaire Date Thrive assessed: 06/30/24 I am a: Patient What is your living situation today?: I have a steady place to live Within the past 12 months, did the food you bought not last and you didn't have the money to get more?: Never true Within the past 12 months, did you worry whether your food would run out before you got money to buy more?: Never true Do you have trouble paying for medicines?: No Do you have trouble getting transportation to medical appointments?: No Do you have trouble paying your heating and electricity bill?: No Do you have trouble taking care of your child, family member or friend?: No Do you have trouble with day-to-day activities such as bathing, preparing meals, shopping, managing finances, etc.?: No Are you currently unemployed and looking for a job?: No Are you interested in more education?: No Please select the resources that you would like help with: None Currently or been in a relationship where the following occur: No concerns reported THRIVE Score: 0 AUDIT C Alcohol Use Questionnaire (AUDIT-C) 1. How often do you have a drink containing alcohol?: Never Total Score: 0 Score Reviewed/Action Taken: Yes ABEL-7 AMB Questionnaire ABEL-7 Date ABEL - 7 assessed: 06/30/24 Feeling nervous, anxious, or on edge: 0 = Not at all Not being able to stop or control worryin = Not at all Worrying too much about different things: 0 = Not at all Trouble relaxin = Not at all Being so restless that it is hard to sit still: 0 = Not at all Becoming easily annoyed or irritable: 0 = Not at all Feeling afraid as if something awful might happen: 0 = Not at all Total ABEL-7 score (0-4 normal; 5-9 mild; 10-14 moderate; 15-21 severe): 0 Source: Developed by Drs. Steven Hebert, Ursula Watson, Jared Joshi and colleagues, with an educational fredrick from [employer]. Review of Systems Const Denies chills, Reports difficulty sleeping (over the past week), Reports fatigue, Denies fever(s) and Denies headache(s) ENT Denies dysphagia, Denies dizziness, Denies otalgia, Denies headache(s), Denies neck pain, Denies odynophagia and Denies sore throat Card Denies chest pain, Reports claudication, Denies palpitations and Reports dyspnea on exertion (mild) Resp Denies chest congestion, Denies cough and Reports dyspnea on exertion (mild) GI Denies abdominal pain, Denies hematochezia, Reports constipation, Denies dysphagia, Denies heartburn, Denies diarrhea, Reports loose stools (occasionally), Denies nausea, Denies odynophagia and Denies vomiting Denies difficulty voiding, Denies nocturia, Denies dysuria and Denies urinary urgency Musc Reports back pain (on and off; better now than a couple of months ago), Reports arthralgias (right hip, on and off; increased in R shoulder) and Denies neck pain Skin/Breast Denies rash Neuro Denies dizziness and Denies headache(s) Endo Reports fatigue and Denies palpitations Sean/Lymph Details: (+) recurrent pain/claudication over her left lower extremity Physical exam (Primary Care) Vital Signs: Last Vital Signs Pulse 47 L 06/30/24 13:41 BP 110/68 06/30/24 13:41 Pulse Ox 95 06/30/24 13:41 Oxygen Delivery Method Room Air 06/30/24 13:41 BMI result Body Mass Index 33.4 Tobacco/Smoking Status: Tobacco use Status Tobacco use date assessed 06/30/24 06/30/24 13:53 Patient Tobacco Use Status Former Tobacco user 06/30/24 13:53 Tobacco use type Cigarette 06/30/24 13:53 e-Cigarette/Vaping Use Never Used 06/30/24 13:53 PHQ-9: PHQ-9 Score PHQ-9: Total score 0 06/30/24 14:59 Depression Screening Interpretation: Negative Thrive Assessment: Date of Thrive Assessment Date Thrive assessed 06/30/24 06/30/24 13:53 Currently or been in a relationship where the following occur: No concerns reported Const General: no acute distress and alert HENMT Ears: TM's normal bilaterally and EAC's normal Throat: Yes posterior oropharynx normal and Yes tonsils normal (no TP congestion noted) Neck Neck: Yes supple and No lymphadenopathy Thyroid: Thyroid normal Resp Auscultation: clear to auscultation bilaterally, no rales and no wheezes Cardio Rate: bradycardic Rhythm: regular rhythm Heart sounds: Murmur heart sound present diastolic blowing and at the apex and systolic III/ and at the base GI Palpation (GI): Soft to palpation and nontender Auscultation: normal bowel sounds General: Yes no CVA tenderness Back/Spine/Pelvis Back: no CVA tenderness Thoracic/Lumbar Spine: lumbar spinal tenderness (mild) Skin Rashes: no rashes Extrem General: Yes no clubbing, cyanosis or edema Right upper extremity: shoulder/upper arm Details: tenderness Location: of the A-C joint (and behind the right shoulder ) Results Reviewed Results Reviewed: Laboratory Tests 06/26/24 09:55 WBC 9.2 Hgb 12.7 Hct 40.6 Plt Count 278 Sodium 141 Potassium 4.6 Creatinine 1.18 Estimated GFR 44 Fasting Glucose 145 H Hemoglobin A1c % 6.2 H Calcium 9.9 AST 20 ALT 14 Triglycerides 96 Cholesterol 129 LDL Cholesterol, Calc 84 HDL Cholesterol 26 L Ur Specific Thompson 1.020 Urine Protein Negative Urine Glucose (UA) >=1000 H Urine Blood Negative Urine Nitrite Negative Ur Leukocyte Esterase Trace H Coding Level of Care Code Est Pt Level 4 (40644) Diagnoses Pure hypercholesterolemia E78.00 Type 2 diabetes mellitus with stage 3b chronic kidney disease, without long-term current use of insulin E11.22; N18.32 Chronic kidney disease stage: stage 3 (moderate) Chronic kidney disease stage 3 subtype: stage 3b (GFR 30-44) Diabetes mellitus ferry terminal agent insulin use: without retirement use Stage 3a chronic kidney disease N18.31 Chronic kidney disease stage 3 subtype: stage 3a (GFR 45-59) Chronic diastolic heart failure I50.32 Valvular heart disease I38 Benign essential hypertension I10 Chronic obstructive pulmonary disease, unspecified COPD type J44.9 COPD type: unspecified COPD PSVT (paroxysmal supraventricular tachycardia) I47.1 PAC (premature atrial contraction) I49.1 Peripheral vascular disease I73.9 Toxic multinodular goiter E05.20 Anemia, unspecified type D64.9 Anemia type: unspecified type Gout, unspecified cause, unspecified chronicity, unspecified site M10.9 Chronicity: unspecified Gout etiology: unspecified cause Gout site: unspecified site Hypomagnesemia E83.42 GERD without esophagitis K21.9 Vitamin D deficiency E55.9 Chronic right-sided low back pain with right-sided sciatica M54.41; G89.29 Back pain laterality: right Right shoulder pain, unspecified chronicity M25.511 Chronicity: unspecified Right elbow pain M25.521 Anxiety F41.9 Episode of recurrent major depressive disorder, unspecified depression episode severity F33.9 Active/Remission status: currently active Depression Type: major depressive disorder Major depression episode severity: unspecified Major depression recurrence: recurrent Obesity (BMI 30-39.9) E66.9 Additional Codes PHQ-9 - 02754 - PHQ-9 Billing: Yes ([id number]) Assessment & Plan Assessment & Plan (1) Pure hypercholesterolemia: Code(s): E78.00 - Pure hypercholesterolemia, unspecified Category: Medical Plan: Results of her labs done a few days ago reviewed and discussed with patient Reinforced low cholesterol diet Continue Atorvastatin 40 mg QD Will recheck her labs and fasting lipids in 3 months for follow up (2) Type 2 diabetes mellitus with diabetic chronic kidney disease: Code(s): E11.22 - Type 2 diabetes mellitus with diabetic chronic kidney disease Category: Medical Qualifiers: Chronic kidney disease stage: stage 3 (moderate) Chronic kidney disease stage 3 subtype: stage 3b (GFR 30-44) Diabetes mellitus retirement insulin use: without ferry terminal agent use Qualified Code(s): E11.22 - Type 2 diabetes mellitus with diabetic chronic kidney disease; N18.32 - Chronic kidney disease, stage 3b Plan: Her HgbA1c was at 6.2% on her labs done a few days ago (was previously at 6.7% a few months ago) - goal is at least <7.0% Reinforced diabetic diet Continue Januvia 100 mg QD and Farxiga 5 mg Q AM She was taken off Glimepiride 1 mg QD last year as she was reportedly experiencing recurrent symptomatic low blood sugar readings She could not tolerate Metformin / Metformin ER due to diarrhea Will recheck her labs and HgbA1c in 3 months for follow up (3) Chronic kidney disease (CKD), stage III (moderate): Code(s): N18.30 - Chronic kidney disease, stage 3 unspecified Category: Medical Qualifiers: Chronic kidney disease stage 3 subtype: stage 3a (GFR 45-59) Qualified Code(s): N18.31 - Chronic kidney disease, stage 3a Plan: Patient is advised that her GFR and serum creatinine have improved from previous She did have an abdominal CT done last month that revealed a markedly atrophic right kidney so she technically likely has only 1 functioning kidney at this time She was taken off Valsartan when she reportedly developed some MARBELLA while admitted to the hospital last year She was also started on Farxiga a few months ago and her Metoprolol ER and Torsemide dosage were also lowered by cardiology recently - have advised patient that all these likely contributed to the improvement renal function recently Will continue to monitor her GFR and serum creatinine regularly (4) Chronic diastolic heart failure: Comment: SHE IS BEING FOLLOWED BY CARDIOLOGY REGULARLY, AND BEING TREATED FOR CHRONIC DIASTOLIC CONGESTIVE HEART FAILURE. I THINK HER CARDIAC FUNCTION HAS DETERIORATED WHICH ACCOUNTS FOR HER INCREASED SHORTNESS OF BREATH. Code(s): I50.32 - Chronic diastolic (congestive) heart failure Category: Medical Plan: Continue Torsemide 20 mg QOD Reinforced fluid restriction Follow up with cardiology as scheduled (5) Valvular heart disease: Code(s): I38 - Endocarditis, valve unspecified Category: Medical Plan: Previous echocardiogram done on 01/14/2021 revealed (+) normal LV size and function, with hyperdynamic EF of >70%; left atrium is severely dilated, with moderate AR and moderate as well as moderate MR and severe MS and mild pulmonary hypertension - these changes appear to be worse compared to previous findings Repeat echocardiogram done on 07/17/2021 revealed findings that are mostly un changed from 2020 but the gradient across the mitral valve is slightly less and PA pressures have improved and the gradient across the aortic valve is also slightly improved She reportedly had a normal cardiac cath done at [facility] back in August 2022 She has also been advised that she will be potentially requiring valve replacement or repair of her mitral and aortic valve - patient does not feel she is ready for either yet at this time Follow up with cardiology as scheduled - used to see Dr. Ajay Hannah but is now seeing Dr. Nance up at [facility] (6) Benign essential hypertension: Code(s): I10 - Essential (primary) hypertension Category: Medical Plan: Reinforced low-sodium diet - goal is systolic BP of at least 140 to 150 mm or less Continue Metoprolol ER 75 mg QD Her Valsartan 160 mg QD was discontinued while she was in the hospital last year due to MARBELLA (7) COPD (chronic obstructive pulmonary disease): Comment: SHE HAS MODERATELY SEVERE ASTHMA/COPD. WITH THE CURRENT COMBINATION SHE IS FEELING BETTER. SHE HAS NOT REQUIRED TO USE RESCUE INHALER. Code(s): J44.9 - Chronic obstructive pulmonary disease, unspecified Category: Medical Qualifiers: COPD type: unspecified COPD Qualified Code(s): J44.9 - Chronic obstructive pulmonary disease, unspecified Plan: Stable Continue Advair Diskus 250-50 mcg 1 inhalation BID, Incruse Ellipta 62.5 mcg 1 inhalation QD and Albuterol HFA 108 mcg 2 puffs 4 times a day as needed Follow up with pulmonary as scheduled - sees Dr. Cardona (8) PSVT (paroxysmal supraventricular tachycardia): Code(s): I47.1 - Supraventricular tachycardia Category: Medical Plan: She is currently controlled on Diltiazem ER with no recurrence of her SVT for a while now Follow-up with cardiology as scheduled (9) PAC (premature atrial contraction): Code(s): I49.1 - Atrial premature depolarization Category: Medical Plan: This has been controlled adequately on Diltiazem so far - continue Diltiazem ER 240 mg QD Follow-up with cardiology as scheduled (10) Peripheral vascular disease: Comment: S/P angioplasty of left lower extremity in July 2020 Code(s): I73.9 - Peripheral vascular disease, unspecified Category: Medical Plan: S/P angioplasty although patient did not feel that her surgery helped a lot She was prevously on dual antiplatelet therapy with low dose Aspirin 81 mg QD and Clopidogrel 75 mg QD previously but is now just on Clopidogrel (Aspirin was discontinued due to GI bleed and profound anemia) Follow up with vascular surgery as scheduled (11) Toxic multinodular goiter: Code(s): E05.20 - Thyrotoxicosis with toxic multinodular goiter without thyrotoxic crisis or storm Category: Medical Plan: Her TFTs were again normal on her recent labs Follow-up with endocrinology as scheduled - FNA Bx done on 06/17/2017 came out benign Ultrasound done a couple of years ago came back unchanged and recommendation is to just continue with yearly ultrasound for continuing surveillance (12) Anemia: Code(s): D64.9 - Anemia, unspecified Category: Medical Qualifiers: Anemia type: unspecified type Qualified Code(s): D64.9 - Anemia, unspecified Plan: Her H/H have improved/corrected and have remained normal on her recent labs This was most likely due to GI bleeding related to her previous dual antiplatelet therapy and she required blood transfusion of 2 units of PRBC in January 2021 and 1 more unit in April 2021; also s/p IV iron in March 2021 Continue Ferrous Sulfate 325 mg BID Follow up with hematology as scheduled (13) Gout: Code(s): M10.9 - Gout, unspecified Category: Medical Qualifiers: Chronicity: unspecified Gout etiology: unspecified cause Gout site: unspecified site Qualified Code(s): M10.9 - Gout, unspecified Plan: Asymptomatic; her serum uric acid level was elevated at 9.3 when it was most recently checked in February 2024 Reinforced low purine diet Continue Colcrys 0.6 mg twice a day, Indomethacin 25 mg twice a day with food as needed (14) Hypomagnesemia: Code(s): E83.42 - Hypomagnesemia Category: Medical Plan: Corrected - will continue to monitor her serum magnesium level regularly (15) GERD without esophagitis: Code(s): K21.9 - Gastro-esophageal reflux disease without esophagitis Category: Medical Plan: Dietary restrictions reinforced Continue Lansoprazole 30 mg daily; may take some OTC Famotidine 20 mg PRN for symptomatic relief Follow-up with GI as scheduled (16) Vitamin D deficiency: Code(s): E55.9 - Vitamin D deficiency, unspecified Category: Medical Plan: Continue Vitamin D3 5000 units once a day (17) Chronic low back pain with right-sided sciatica: Code(s): M54.41 - Lumbago with sciatica, right side; G89.29 - Other chronic pain Category: Medical Qualifiers: Back pain laterality: right Qualified Code(s): M54.41 - Lumbago with sciatica, right side; G89.29 - Other chronic pain Plan: Lumbar spine x-rays done back in April 2022 revealed (+) multilevel lumbar spondylosis and facet arthritis, with no acute changes or fractures noted Reinforced activity and weight-lifting restrictions Due to her increasing low back pain and right lumbar radiculopathy, she was sent for repeat lumbar spine x-rays and also for SI joint x-rays for further evaluation a few months ago (March 2024), which revealed (+) no acute compression fracture, with a slight retrolisthesis L1-2 and anterolisthesis L4-5 not appreciably changed from previous imaging. There is also extensive degenerative disc space narrowing L5-S1 that appears to be slightly increased from previous Have advised patient to consider referral to pain management if her low back pain continues to progress (18) Right shoulder pain: Code(s): M25.511 - Pain in right shoulder Category: Medical Qualifiers: Chronicity: unspecified Qualified Code(s): M25.511 - Pain in right shoulder Plan: Suspect right shoulder bursitis and/or impingement syndrome X-rays of the right shoulder done back in March 2024 did reveal (+) degenerative changes as well as findings suggestive of calcific tendinitis Will refer her to orthopedics for further evaluation and management (19) Right elbow pain: Code(s): M25.521 - Pain in right elbow Category: Medical Plan: X-rays of the right elbow done back in March 2024 also revealed (+) degenerative changes in the elbow with no acute process Patient states that her elbow pain has actually subsided a lot lately and is not bothering her as much as it used to (20) Anxiety: Code(s): F41.9 - Anxiety disorder, unspecified Category: Medical Plan: States that her Citalopram is helping with her anxiety (21) Depression: Code(s): F32.9 - Major depressive disorder, single episode, unspecified Category: Medical Qualifiers: Active/Remission status: currently active Depression Type: major depressive disorder Major depression episode severity: unspecified Major depression recurrence: recurrent Qualified Code(s): F33.9 - Major depressive disorder, recurrent, unspecified Plan: Continue Citalopram 40 mg QD and Mirtazapine 15 mg Q HS Follow-up with Psychiatry as scheduled - is now seeing a nurse practitioner as her previous psychiatrist retired from active practice (22) Obesity (BMI 30-39.9): Code(s): E66.9 - Obesity, unspecified Category: Medical Plan: Reinforced diet; exercise and weight loss are unrealistic in this patient as she is currently experiencing a lot of physical and vascular symptoms and has multiple comorbidities that significantly limits her activity and exercise tolerance Plan Follow up in 3 months Orders: Orders Comprehensive [place]. Panel Fast 3 Months E78.00 - Pure hypercholesterolemia, unspecified Hemoglobin A1c 3 Months E11.9 - Type 2 diabetes mellitus without complications Vitamin D 25-OH Total 3 Months E55.9 - Vitamin D deficiency, unspecified Vitamin B12 and Folate 3 Months E53.8 - Deficiency of other specified B group vitamins Complete Blood Count Auto Diff 3 Months D64.9 - Anemia, unspecified Lipid Panel 3 Months E78.00 - Pure hypercholesterolemia, unspecified Microalbumin, Random (w Creat) 3 Months E11.9 - Type 2 diabetes mellitus without complications TSH reflex Free T4 3 Months E78.00 - Pure hypercholesterolemia, unspecified UA CC w/rflx Micro + Cult 3 Months R30.0 - Dysuria Referrals Orthopedics Referral M25.511 - Pain in right shoulder Medications: Changed From metoprolol succinate ER 100 mg PO DAILY 90 days 90 tabs 1RF To metoprolol succinate ER 75 mg PO DAILY From potassium chloride ER 50 mEq (5 x 10 mEq) PO DAILY 90 caps 0RF I50.32 - Chronic diastolic (congestive) heart failure To potassium chloride ER two capsules capsules every other day 50 mEq PO DAILY I50.32 - Chronic diastolic (congestive) heart failure From torsemide one tablet every other day 40 mg PO DAILY To torsemide one tablet every other day 20 mg PO .QOD
--- OUTSIDE RECORDS SUMMARY | 2024-06-30 13:44 | XMS_ITS | Patient Health Record ---
Author Organization [facility] Address [address] [place] [address] Care Team Providers Care Product Steward Name Role Phone Donal BELTRÁN, [place] Primary Care Provider Freeman Lindo Unavailable [phone] Allergies Allergen (clinical drug ingredient) Drug/Non Drug [...] Problem Status W/U Status Risk Notes Problem 81998082 Type 2 diabetes mellitus with diabetic polyneuropathy (E11.42) Active confirmed Problem Unspecified atherosclerosis of galena arteries of extremities, bilateral legs (I70.203) Active confirmed Problem Acquired hammer toe of left foot (9218019247608784 ) Other hammer toe(s) (acquired), left foot (M20.42) Active confirmed Problem Polyneuropathy due to type 2 diabetes mellitus (689081135) Type 2 diabetes mellitus with diabetic polyneuropathy (E11.42) Active confirmed Problem Polyneuropathy due to diabetes mellitus type I (556072389) Type 1 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) Active confirmed Plan Of Treatment Pending Test Test Name Order Date X ray : Foot, left 2V 08/02/2014 X ray : Foot, left 2V 08/22/2014 X ray : Foot, left 2V 08/30/2014 X ray : Foot, left 2V 09/13/2014 X ray : Foot, right 2V 10/10/2014 *Uric Acid, Serum 10/10/2014 *Sedimentation Rate-Devonren 5 60883-KYQVMGK NAIL, 1-5 09/13/2014 39333-YYWW SKIN LESIONS, 2 TO 4 07/23/19 21 19447-JXFT SKIN LESIONS, 2 TO 4 10/22/19 21 82896-ABTA SKIN LESIONS, 2 TO 4 01/14/20 21 82435-MQGG SKIN LESIONS, 2 TO 4 04/23/20 21 07149-LXCR SKIN LESIONS, 2 TO 4 08/07/19 22 27056, U6592-KAAZJ/INJECT, JOINT/BURSA 0 10/24/2015 62625, J0702- Neuroma/Injection 05/31/19 15 19685, J0702- Neuroma/Injection 10/26/19 15 Insurance Providers Payer Name Payer Address Payer Phone Subscriber Number Group Number Insured Name Patient Relationship to Insured Coverage Start Date Coverage End Date Medicare National Govt Sv[employer] [address] [place] [address] [id number] Alice Martinez Self - patient is the insured [facility] [address] [place] [address] [id number] Alice Martinez Self - patient is [...] legs Guille 12/10/2020 Hospitalization History Reason Date(Month/Year) [facility]- Bunion surgery left foot 08/16/14 [facility] vascular sx 08/14/20-08/21/20
--- OUTSIDE RECORDS SUMMARY | 2024-06-30 13:44 | XMS_ITS ---
Author Organization [facility] Address [address] [place] [address] Care Team Providers Care Support Team Member Name Role Phone Donal BELTRÁN, [place] Primary Care Provider Unava Steven Vazquez Unavailable [phone] REASON FOR VISIT stool specimen rejected Encounters Encounter Location Date Provider Diagnosis [facility] [address] [place] [address] 12/15/2023 Steven Haji PLAN OF TREATMENT Next Appt Details Provider Name:Steven Haji , 03/07/2025 01:00:00 PM, [address], [address], [place], [address],
--- OUTSIDE RECORDS SUMMARY | 2024-06-30 13:45 | XMS_ITS | Clinical Summary ---
Author Organization [facility] Address [address] [place] [address] Care Team Providers Care Clerk To Justice Name Role Phone Jamel Mansfield MD Primary Care Provider [phone] Social History Tobacco Use Types Packs/Day Years [...] age to complete this topic Insurance MEDICARE [facility] Care Teams Clerk To Justice Relationship Specialty Start Date End Date Jamel Mansfield MD [address] [place] [address] DRIVE [address] [place] [address] PCP - General Internal Medicine 10/08/22
--- OUTSIDE RECORDS SUMMARY | 2024-06-30 13:45 | XMS_ITS | Patient Health Record ---
Author Organization [facility] Address [address] [place] [address] Care Team Providers Care Liquid Waste Treatment Plant Operator Name Role Phone Donal BELTRÁN, [place] Primary Care Provider Steven Irving [phone] ALLERGIES Allergen (clinical drug ingredient) Drug/Non Drug Allergy documented on EMR Reaction Allergy Type Onset Date Status Penicillin Unknown Drug Allergy Active contrast dye (uncoded) Unknown Allergy Active RESULTS Component Value Reference Range Notes Leukocytes Stool Qualitative Reviewed date:12/15/2023 11:09:11 PM Interpretation: Performing Lab:[facility], [address] [place] [address] Notes/Report: Leukocytes Stool Qualitative NEGATIVE NEGATIVE Pancreatic Elastase-1 Reviewed date:01/01/2024 10:04:49 PM Interpretation: Performing Lab:[facility], [address] [place] [phone] Notes/Report: Pancreatic Elastase-1 123 Adult and Pediatric Reference Ranges for Pancreatic Elastase-1: Normal: >200 mcg/g Moderate Pancreatic Insufficiency: 100-200 mcg/g Severe Pancreatic Insufficiency: <100 mcg/g Elastase-1 (E-1) assay results are expressed in mcg/g, which represent mcg E1/g feces. It is not necessary to interrupt enzyme substitution therapy. THIS TEST WAS PERFORMED AT: [facility] [address] [place] [address] BRENDON FOSTER MD,PHD,LILIANA Fecal Fat Qualitative Reviewed date:12/25/2023 01:02:36 AM Interpretation: Performing Lab:[facility], [address] [place] [phone] Notes/Report: Fecal Fat Qualitative Normal Normal THIS TEST WAS PERFORMED AT: [facility] [address] [place], [place] JANNY BOCANEGRA MD,PHD Calprotectin, Fecal Reviewed date:12/25/2023 01:02:53 AM Interpretation: Performing Lab:[facility], [address] [place] [address] Notes/Report: Calprotectin, Fecal 126 Reference Range: <50 [...] borderline values. THIS TEST WAS PERFORMED AT: [facility] [place] [place] [address] [place] [address] BRENDON FOSTER MD,PHD,LILIANA Ova and Parasite Reviewed date:12/29/2023 06:45:37 PM Interpretation: Performing Lab:[address] [address] Notes/Report: Ova and Parasite SEE NOTE OVA AND PARASITES, CONC AND PERM SMEAR Micro Number: [id number] Test Status: Final Specimen Source: Stool Specimen [...] infection. For additional information, please refer to https://[email or web address].Cognitive Security/faq/ZKX924 (This link is being provided for informational/ educational purposes only.) THIS TEST WAS PERFORMED AT: [facility] [address] [address] SUGEY QUEVEDO MD CDiff Gene PCR Reviewed date:12/15/2023 11:09:17 PM Interpretation: Performing Lab:[address] [address] Notes/Report: CDiff Gene PCR NEGATIVE Negative If C. difficile strongly suspected despite one negative test, a second test may be sent vs. empiric treatment for C. difficile infection. GI PANEL Reviewed date:01/01/2024 10:03:38 PM Interpretation: Performing Lab:[facility], [address] [place] [address] Notes/Report: Campylobacter Not Detected Not Detect. Plesiomonas [...] is performed by Multiplexed PCR, utilizing the Modria Film Array. MAMMOGRAM DIGITAL BILATERAL SCREEN Reviewed date:03/08/2024 01:31:20 PM Interpretation:Normal Performing Lab: Notes/Report: Normal GI PANEL Reviewed date:04/25/2024 09:24:57 PM Interpretation: Performing Lab:[facility], [address] [place] [address] Notes/Report: Campylobacter Not Detected Not Detect. Plesiomonas [...] reviewed by provider) Interpretation: Performing Lab: Notes/Report: [address] [address] [address] Scan Report Signed Patient: Alice Carter MR#: [id number] 89 : 1940 Acct:[id number] Age/Sex: 83 / F ADM Date: 06/02/24 Loc: HO.CT Attending Dr: Steven Haji MD Ordering Physician: Steven Haji MD Date of Service: 06/02/24 Procedure(s): CT abdomen pelvis wo IV con Accession Number(s): [id number] cc: Jamel Mansfield MD; Steven Haji MD Report Number: [id number]: Total DLP = 756.00 mGy-cm EXAMINATION: CT [...] 06/05/24 0842 DD/ 1530 TD/TT: 06/02/24 1738 Line Manager: REASON FOR REFERRAL No Information MEDICATIONS Medication [...] Problem Diarrhea, unspecified (R19.7) Active confirmed Diarrhea (04836450) Problem Gastroesophageal reflux disease, esophagitis presence not specified (K21.9) Active confirmed 832245130 Problem Heme + stool (R19.5) Active confirmed 89287269 Problem Anemia (D64.9) Active confirmed Anemia (952601103) Problem Iron deficiency anemia due to chronic blood loss (D50.0) Active confirmed 670977158 Problem Microcytic anemia (D50.9) Active confirmed 252654065 Problem Angiodysplasia of colon (K55.20) Active confirmed 826861077 Problem Iron deficiency anemia, unspecified iron deficiency anemia type (D50.9) Active confirmed 18928834 Problem Diarrhea, unspecified type (R19.7) Active confirmed 56937015 Problem Chronic diarrhea (K52.9) Active confirmed Chronic diarrhe a (261086822) Problem 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) Active confirmed 11960857 Problem Pancreatic insufficiency (K86.89) Active confirmed Pancreatic insufficiency (29535454) Problem Fecal soiling due to fecal incontinence (R15.9) Active confirmed Incontinence of feces (14341024) VITAL SIGNS Temperature 95.5 degrees Fahrenheit 03/08/2024 Blood pressure diastolic 72 mm Hg 03/08/2024 Height 62.5 in 03/08/2024 Blood pressure systolic 118 mm Hg 03/08/2024 Weight 189 lb 6 oz lbs 03/08/2024 BMI 34.08 kg/m2 03/08/2024 Encounters Encounter Location Date Provider Diagnosis [facility] [address] [place] [address] 09/07/2023 Steven Haji Diarrhea, unspecifie d type R19.7 and Iron deficiency anemia due to chronic blood loss D50.0 [facility] [address] [place] [address] 03/08/2024 Steven Haji Gastroesophageal ref lux disease, esophagitis presence not specified K21.9 ; Iron deficiency anemia, unspecified iron deficiency anemia type D50.9 ; Chronic diarrhea K52.9 and Pancreatic insufficiency K86.89 [facility] [address] [place] [address] 11/30/2023 Steven Haji Diarrhea, unspecifie d R19.7 [facility] [address] [place] [address] 12/06/2023 Steven Haji Chronic diarrhea K52 .9 [facility] [address] [place] [address] 12/15/2023 Steven Haji [facility] [address] [address] 03/19/2024 Steven Haji ASSESSMENTS Encounter Date Diagnosis [...] IBC (FE) 05/20/2021 IRON + IBC (FE) 05/02/2016 IRON + IBC (FE) 01/27/2022 IRON + IBC (FE) 03/19/2021 FERRITIN 05/02/2016 [...] Provider Name:Steven Haji , 03/07/2025 01:00:00 PM, [address] [place] [address], [address], [place], [address], Insurance Providers Payer Name Payer Address Payer Phone Subscriber Number Group Number Insured Name Patient Relationship to Insured Coverage Start Date Coverage End Date [place] [address] [place] [address] [id number] ALICE CARTER Self - patient is the insured [facility] [address] [place] [address] [id number] ALICE CARTER Self - patient is the insured MEDICAL (GENERAL) HISTORY Medical History History ICD Code 10/25/2009 Colonoscopy--neg except for h yperplastic polyps--no IBD Tubular adenomas removed in 2002 GERD-EGD in 1997--HH, but ot herwise negative; EGD 05/2014 small HH, no esophagitis, small area of Aguilera's--no dysplasia Depression Hyperlipidemia NIDDM COPD Hypertension Denies DC,CVA,renal disease Microcytic anemia in 2015--h emoglobin 10.8 [...] stenosis. She is being followed by a utility locator Hospitalized 01/2022 for recu rrent anemia--Hgb 7.7 [...] as described by the patient-Dr. Siddiqi at [facility] 08/14/2020 and 11/2020 Hospitalization History Reason Date(Month/Year) Hospitalized for 2 weeks due to pneumonia, CHF, and Afib, and then rehab for 2 weeks. Spring 2022
--- OUTSIDE RECORDS SUMMARY | 2024-06-30 13:45 | XMS_ITS ---
Author Organization [facility] Address [address] [place] [address] Care Team Providers Care Item Processor Name Role Phone Donal BELTRÁN, [place] Primary Care Provider Unava Steven Vazquez Unavailable [phone] Encounters Encounter Location Date Provider Diagnosis [facility] [address] [place] [address] 03/19/2024 Steven Haji PLAN OF TREATMENT Next Appt Details Provider Name:Steven Haji , 03/07/2025 01:00:00 PM, [address], [address], [place], [address],
--- OUTSIDE RECORDS SUMMARY | 2024-06-30 13:45 | XMS_ITS ---
Author Organization [facility] Address [address] [place] [address] Care Team Providers Care Locum Tenens Name Role Phone Donal BELTRÁN, [place] Primary Care Provider Steven Irving Unavailable [phone] ALLERGIES Allergen (clinical drug ingredient) Drug/Non Drug [...] Pancreatic insufficiency (K86.89) Active confirmed Pancreatic insufficiency (74941829) VITAL SIGNS BMI 34.08 kg/m2 03/08/2024 Blood pressure systolic 118 mm Hg 03/08/20 24 Blood pressure diastolic 72 mm Hg 024 Height 62.5 in 03/08/2024 Temperature 95.5 degrees Fahrenheit 03/08/20 24 Weight 189 lb 6 oz lbs 03/08/2024 Encounters Encounter Location Date Provider Diagnosis [facility] [address] [place] [address] 03/08/2024 Steven Haji Gastroesophageal ref lux disease, [...] 01:00:00 PM, [address], [address], [place], [address], Progress Notes * Examination Category Sub-Category Detail [...]
== END 2024-06-30 14:55 | disposition home or self-care (01) ==
PROVIDERS: PCP Internal Medicine; Visit Provider Internal Medicine
DX: E78.00 Pure hypercholesterolemia, unspecified (principal); E11.22 Type 2 diabetes mellitus with diabetic chronic kidney disease; N18.32 Chronic kidney disease, stage 3b; N18.31 Chronic kidney disease, stage 3a; I50.32 Chronic diastolic (congestive) heart failure; I38 Endocarditis, valve unspecified; I10 Essential (primary) hypertension; J44.9 Chronic obstructive pulmonary disease, unspecified; I47.10 Supraventricular tachycardia, unspecified; I49.1 Atrial premature depolarization; I73.9 Peripheral vascular disease, unspecified; F33.9 Major depressive disorder, recurrent, unspecified; E05.20 Thyrotoxicosis with toxic multinodular goiter without thyrotoxic crisis or storm; D64.9 Anemia, unspecified; M10.9 Gout, unspecified; E83.42 Hypomagnesemia; K21.9 Gastro-esophageal reflux disease without esophagitis; E55.9 Vitamin D deficiency, unspecified; M54.41 Lumbago with sciatica, right side; G89.29 Other chronic pain

== ENCOUNTER → 2024-06-30 13:39 | Outpatient (BNVA) | payer MEDICARE, OTHER, SELFPAY | PROVIDERS: PCP Internal Medicine; Visit Provider Internal Medicine | DX: E78.00 Pure hypercholesterolemia, unspecified (principal); I13.0 Hypertensive heart and chronic kidney disease with heart failure and stage 1 through stage 4 chronic kidney disease, or unspecified chronic kidney disease; E11.22 Type 2 diabetes mellitus with diabetic chronic kidney disease; N18.32 Chronic kidney disease, stage 3b; I50.32 Chronic diastolic (congestive) heart failure; I38 Endocarditis, valve unspecified; J44.9 Chronic obstructive pulmonary disease, unspecified; I49.1 Atrial premature depolarization; I47.10 Supraventricular tachycardia, unspecified; I73.9 Peripheral vascular disease, unspecified; E05.20 Thyrotoxicosis with toxic multinodular goiter without thyrotoxic crisis or storm; D64.9 Anemia, unspecified; M10.9 Gout, unspecified; K21.9 Gastro-esophageal reflux disease without esophagitis; E55.9 Vitamin D deficiency, unspecified; M54.41 Lumbago with sciatica, right side; G89.29 Other chronic pain; M25.511 Pain in right shoulder; M25.521 Pain in right elbow; F41.9 Anxiety disorder, unspecified; F33.9 Major depressive disorder, recurrent, unspecified | CPT/HCPCS: 96127; 99212 ==

== ENCOUNTER 2024-08-15 14:53 | Outpatient (AMB) | payer MEDICARE, OTHER, SELFPAY ==
[2024-08-15 14:58] VITALS: BMI 33.4
--- NOTE | 2024-08-15 14:58 | A.OFFVIS_ITS ---
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 Patient states she has not been able to sleep on the right side for many years. Has not tried PT or cortisone injections. Denies prior injuries or surgeries to the shoulder. She reports weakness when lifting her right hand above shoulder height. She also has intermittent left shoulder pain. She states that her left shoulder pain is tolerable to her at this time. She has tried Tylenol which gives her only mild relief. She wishes to hold off on surgery if at all possible. Allergies Iodinated Contrast Media [IV DYE, IODINE CONTAINING CONTRAST ] Allergy (Severe, Verified 08/15/24 14:58) HIVE Penicillins [PENICILLINS] Allergy (Severe, Verified 08/15/24 14:58) HIVES Medication List - Last Reconciled 08/16/24 by Gael Dennison MD albuterol sulfate 90 mcg/actuation (Ventolin HFA) 2 puffs inhalation Q4-6H PRN allopurinol 100 mg PO DAILY 90 days atorvastatin (Lipitor) 80 mg PO DAILY cholecalciferol (vitamin D3) 50 mcg PO DAILY 90 days citalopram mg PO clotrimazole-betamethasone 1-0.05 % 1 appl topical BID 2 weeks dapagliflozin propanediol (Farxiga) 5 mg PO QAM diltiazem HCl ER 240 mg PO DAILY diphenoxylate-atropine 2.5-0.025 mg tabs PO ferrous sulfate (Feosol) 325 mg PO BID fluticasone furoate-vilanterol 200-25 mcg/dose (Breo Ellipta) 1 ea inhalation DAILY Incruse Ellipta 62.5 mcg/actuation (umeclidinium) 1 inh inhalation DAILY 30 days NS Januvia (sitagliptin phosphate) 100 mg PO DAILY 30 days NS lansoprazole (Prevacid) 30 mg PO DAILY@0630 magnesium 400 mg PO DAILY mecobalamin (vitamin B12) 5,000 mcg PO DAILY melatonin 10 mg PO BEDTIME PRN metoprolol succinate ER 75 mg PO DAILY mirtazapine 15 mg PO BEDTIME montelukast 10 mg PO DAILY nystatin 1 appl topical TID 10 days potassium chloride ER 50 mEq PO DAILY prothrombin time/INR test metr (Coaguchek XS Pro) As directed prothrombin time/INR test metr (Coaguchek XS Pro) As directed spironolactone 25 mg PO DAILY torsemide 20 mg PO .QOD trazodone 50 mg PO BEDTIME PRN warfarin Take 1 tablet daily or as instructed orally; [facility] Medical History Pneumonia Chronic diastolic heart failure CHF (congestive heart failure) Thrush, oral GI bleed Occult blood positive stool Microcytic anemia Valvular heart disease Exertional dyspnea Hemorrhagic cystitis Osteopenia Toxic multinodular goiter Obesity (BMI 30-39.9) Hearing impairment Peripheral vascular disease Obesity (BMI 30-39.9) Depression Anxiety Osteoarthritis of ankle and foot Vitamin D deficiency Allergic rhinitis Anemia GERD without esophagitis Gout Hypomagnesemia Multiple thyroid nodules Pure hypercholesterolemia Benign essential hypertension PSVT (paroxysmal supraventricular tachycardia) PAC (premature atrial contraction) COPD (chronic obstructive pulmonary disease) Chronic kidney disease (CKD), stage III (moderate) Type 2 diabetes mellitus with diabetic chronic kidney disease Sciatica of right side Surgical History History of colonoscopy History of angioplasty of peripheral vessel (~08/13/20) History of biopsy History of neck surgery History of cataract surgery History of bladder surgery History of tonsillectomy and adenoidectomy History of appendectomy History of hysterectomy Family History Father Stroke CVD (cardiovascular disease) Mother CVD (cardiovascular disease) Hypertension CAD (coronary artery disease) Other Mental health disorder Social History Household Members: None Housing: Condominium Do you presently have visiting nurse or other home services: Yes (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- [employer]) Alcohol intake: current Alcohol intake frequency: holidays/special occasions only Alcohol type: beer and hard liquor Patient Tobacco Use Status: Former Tobacco user Tobacco use type: Cigarette Cigarette Packs Per Day: 2 Cigarettes Per Day: 40.0 Years Smoked: 40 e-Cigarette/Vaping Use: Never Used Second Hand Smoke Exposure: Yes service: No Current occupational status: retired Cognitive needs: Yes (cane) Hearing needs: Yes Vision needs: Yes Physical Exam Vital Signs: BMI result Body Mass Index 33.4 Const Other: Well-nourished well-developed very friendly female awake alert and oriented x3 in no acute distress Extrem Other: Bilateral upper extremity examination shows good capillary refill, no skin lesions noted, normal sensation light touch Right shoulder examination shows slightly decreased range of motion when compared to her left shoulder, 4/5 strength with supraspinatus testing, positive impingement signs, no instability Office Procedures AMB Joint Injection/Aspiration Joint Injection/Aspiration Primary Site: right shoulder Prep: site was prepped using aseptic technique Injected: 40 mg of, DepoMedrol and 1% plain lidocaine Procedure: The patient tolerated the procedure well Coding 36925 - Large joint Procedure code (CPT) selection complete Results Reviewed Results Reviewed: X-rays of the patient's right shoulder show acromioclavicular joint narrowing, mild glenohumeral joint degenerative changes, a type 2 acromion Assessment & Plan Assessment & Plan (1) Impingement of right shoulder: Code(s): M25.811 - Other specified joint disorders, right shoulder Category: Medical Plan Ms. Martinez presents with right shoulder pain due to impingement syndrome and rotator cuff tendinosis versus possible rotator cuff tearing. I had a lengthy discussion with the patient regarding the treatment options. She wishes to hold off on surgery for as long as possible. I agree with this plan. The risks and benefits of a right shoulder cortisone injection were discussed at length with the patient. The patient has wished to proceed. She tolerated the injection well. She will continue with her home stretching program. She will contact me prior to her follow-up appointment in 3 months should any questions or concerns arise. Feel free to call me at any time should questions regarding her orthopedic management arise. Thank you very much for asking me to see this very friendly patient. I spent 20 minutes in reviewing the patient's records and imaging studies, seeing the patient and documenting in the medical record. Orders: Orders AMB Joint Injection/Aspiration 08/15/24 M25.811 - Other specified joint disorders, right shoulder Coding Level of Care Code New Pt Level 3 (87727) Complex EM visit Add On G2211 Diagnoses Impingement of right shoulder M25.811 CPT Codes Coding - 41366 Large joint: 97528 - Large joint ([id number])
--- OUTSIDE RECORDS SUMMARY | 2024-08-15 17:43 | XMS_ITS | Patient Health Record ---
Author Organization [facility] Address [address] [place] [address] Care Team Providers Care Roving Carrier Name Role Phone Donal BELTRÁN, [place] Primary Care Provider Freeman Lindo Unavailable [phone] Allergies Allergen (clinical drug ingredient) Drug/Non Drug [...] Problem Status W/U Status Risk Notes Problem 74757993 Type 2 diabetes mellitus with diabetic polyneuropathy (E11.42) Active confirmed Problem Bilateral atherosclerosis of arteries of lower limbs (disorder) (67762836291201680 ) Unspecified atherosclerosis of swinom[place] arteries of extremities, bilateral legs (I70.203) Active confirmed Problem Acquired hammer toe of left foot (9652720006300239) Other hammer toe(s) (acquired), left foot (M20.42) Active confirmed Problem Polyneuropathy due to type 2 diabetes mellitus (618864706) Type 2 diabetes mellitus with diabetic polyneuropathy (E11.42) Active confirmed Problem Polyneuropathy due to diabetes mellitus type I (379015409) Type 1 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) Active confirmed Plan Of Treatment Pending Test Test Name Order Date X ray : Foot, left 2V 09/13/2014 X ray : Foot, left 2V 08/30/2014 X ray : Foot, left 2V 08/22/2014 X ray : Foot, left 2V 08/02/2014 X ray : Foot, right 2V 10/10/2014 *Uric Acid, Serum 10/10/2014 *Sedimentation Rate-Westergren 5 07324-RTBMCBA NAIL, 1-5 09/13/2014 50223-JELM SKIN LESIONS, 2 TO 4 07/23/19 21 35418-CERK SKIN LESIONS, 2 TO 4 10/22/19 21 36446-LDGW SKIN LESIONS, 2 TO 4 01/14/20 21 34910-IBSL SKIN LESIONS, 2 TO 4 04/23/20 21 80411-OIQP SKIN LESIONS, 2 TO 4 08/07/19 22 91351, F5519-BZKQK/INJECT, JOINT/BURSA 0 10/24/2015 68224, J0702- Neuroma/Injection 05/31/19 15 03093, J0702- Neuroma/Injection 10/26/19 15 Insurance Providers Payer Name Payer Address Payer Phone Subscriber Number Group Number Insured Name Patient Relationship to Insured Coverage Start Date Coverage End Date Medicare National Govt Svcs Inc [address] [place] [address] [id number] Alice Martinez Self - patient is the insured [facility] [address] [place] [address] [phone] [id number] Alice Martinez Self - patient is [...] legs Guille 12/10/2020 Hospitalization History Reason Date(Month/Year) [facility]- Bunion surgery left foot 08/16/14 [facility] vascular sx 08/14/20-08/21/20
--- OUTSIDE RECORDS SUMMARY | 2024-08-15 17:44 | XMS_ITS ---
Author Organization [facility] Address [address] [place] [address] Care Team Providers Care Floriculture Professor Name Role Phone Donal BELTRÁN, [place] Primary Care Provider UnaSteven Edwards [phone] Encounters Encounter Location Date Provider Diagnosis [facility] [address] [place] [address] 03/19/2024 Steven Haji Plan Of Treatment Next Appt Details Provider Name:Steven Haji , 03/07/2025 01:00:00 PM, [address], [address], [place], [address], Progress Notes * SUKHDEEP CARTER ADOB: [birth year] (83 yo F)Acc No.[id number]:03/19/2024 Patient:?SUKHDEEP CARTER :1940???Age:83 Y???Sex:Female Address:[address] [place] [address] [address] , [place] [address] Subjective: * Chief Complaints: * ??? * Medical History:? * Surgical History:? * Hospitalization/Major Diagno stic Procedure:? * Medications:? Objective: Assessment: Plan: * Treatment: * Procedure Codes:? * true * Date:? Generated for Reni jayleen/Ching/eTransmitting on:?08/15/2024 05:44 PM EDT
--- OUTSIDE RECORDS SUMMARY | 2024-08-15 17:44 | XMS_ITS ---
Author Organization [facility] Address [address] [place] [address] Care Team Providers Care Elementary Reading Specialist Name Role Phone Donal BELTRÁN, [place] Primary Care Provider Steven Irving Unavailable [phone] Allergies Allergen (clinical drug ingredient) Drug/Non Drug Allergy documented on EMR Reaction Allergy Type Onset Date Status Penicillin Unknown Drug Allergy Active contrast dye (uncoded) Unknown Allergy Active REASON FOR VISIT Patient presents today for ANEMIA Medications Medication SIG (Take, Route, Frequency, Duration) [...] 1 tablet Orally for 30 day(s) Active Social History Tobacco Use: Social History Observation Description Date Details (start date - stop date) Former Smoker NA - NA Tobacco Use/Smoking Question Answer Notes Patient is a former smoker Section Notes: Nonsmoker > 10 yrs; no sig a lcohol Problems Problem Type SNOMED Code ICD Code Onset Dates Problem Status W/U Status Risk Notes Problem Pancreatic insufficiency (50134556) Pancreatic insufficiency (K86.89) Active confirmed Vital Signs Temperature 95.5 degrees Fahrenheit 03/08/20 24 Blood pressure systolic 118 mm Hg 03/08/20 24 Blood pressure diastolic 72 mm Hg 024 Height 62.5 in 03/08/2024 Weight 189 lb 6 oz lbs 03/08/2024 BMI 34.08 kg/m2 03/08/2024 Encounters Encounter Location Date Provider Diagnosis [facility] [address] [place] [address] 03/08/2024 Steven Haji Gastroesophageal ref lux disease, esophagitis presence not specified K21.9 ; Iron deficiency anemia, unspecified iron deficiency anemia type D50.9 ; Chronic diarrhea K52.9 and Pancreatic insufficiency K86.89 Assessments Encounter Date Diagnosis (ICD Code) Assessment Notes Treatment Notes Treatment Clinical Notes Section Notes 03/08/2024 Gastroesophageal reflux disease, esophagitis presence not specified (ICD-10 - K21.9) Overall, Alice appears well from a clinical standpoint. Her previous anemia has remained quite stable and she does not have any signs or symptoms of recurrent GI blood loss despite the continued use of her Coumadin. As such, I did advise her to continue her PPI and iron replacement. However, I would recommend that she continue to have periodic CBCs to be sure things are remaining stable in the future. In regard to her history of chronic diarrhea, this does not seem overly problematic at the present time given her description of the Lomotil giving her good symptomatic relief for the most part. In regard to the positive GI panel for EPEC, I am going to repeat that today to see if the infection persists before making a definitive commitment to treating with antibiotics. Again, I would like to hold off on antibiotics if possible since the EPEC may not be a true pathogen and I would like to avoid giving her any type of secondary diarrhea from the antibiotic itself. While her recent stool specimens seem to indicate some possible component of pancreatic insufficiency, her clinical history of the improved bowel regimen with Lomotil and no significant weight loss would tend to go against any clinically significant pancreatic insufficiency. As such, I will hold off on starting her on any pancreatic enzyme replacement. As she states, she is on so many medications now she would really like to avoid having to take extra medication if at all possible. However, I shall check a CT scan of the pancreas to rule out the unlikely possibility of a pancreatic neoplasm causing some pancreatic duct obstruction with associated pancreatic insufficiency on that basis. Again, given her good clinical appearance without any weight loss or jaundice, I tend to doubt that will be the case. If things remain stable and it does not appear that she needs pancreatic enzyme replacement, I will then see her in one year for a followup visit. However, I did advise her to definitely call me if the diarrhea worsens or if she develops any other problems or issues that I can be of assistance with in the interim. Alice was comfortable with this plan. Thank you again for allowing me to participate in Alice's care. I shall continue to keep you advised of her progress. 03/08/2024 Iron deficiency anemia, unspecified iron deficiency anemia type (ICD-10 - D50.9) Overall, Alice appears well from a clinical standpoint. Her previous anemia has remained quite stable and she does not have any signs or symptoms of recurrent GI blood loss despite the continued use of her Coumadin. As such, I did advise her to continue her PPI and iron replacement. However, I would recommend that she continue to have periodic CBCs to be sure things are remaining stable in the future. In regard to her history of chronic diarrhea, this does not seem overly problematic at the present time given her description of the Lomotil giving her good symptomatic relief for the most part. In regard to the positive GI panel for EPEC, I am going to repeat that today to see if the infection persists before making a definitive commitment to treating with antibiotics. Again, I would like to hold off on antibiotics if possible since the EPEC may not be a true pathogen and I would like to avoid giving her any type of secondary diarrhea from the antibiotic itself. While her recent stool specimens seem to indicate some possible component of pancreatic insufficiency, her clinical history of the improved bowel regimen with Lomotil and no significant weight loss would tend to go against any clinically significant pancreatic insufficiency. As such, I will hold off on starting her on any pancreatic enzyme replacement. As she states, she is on so many medications now she would really like to avoid having to take extra medication if at all possible. However, I shall check a CT scan of the pancreas to rule out the unlikely possibility of a pancreatic neoplasm causing some pancreatic duct obstruction with associated pancreatic insufficiency on that basis. Again, given her good clinical appearance without any weight loss or jaundice, I tend to doubt that will be the case. If things remain stable and it does not appear that she needs pancreatic enzyme replacement, I will then see her in one year for a followup visit. However, I did advise her to definitely call me if the diarrhea worsens or if she develops any other problems or issues that I can be of assistance with in the interim. Alice was comfortable with this plan. Thank you again for allowing me to participate in lAice's care. I shall continue to keep you advised of her progress. 03/08/2024 Chronic diarrhea (ICD-10 - K52.9) Continue the daily Lomotil Overall, Alice appears well from a clinical standpoint. Her previous anemia has remained quite stable and she does not have any signs or symptoms of recurrent GI blood loss despite the continued use of her Coumadin. As such, I did advise her to continue her PPI and iron replacement. However, I would recommend that she continue to have periodic CBCs to be sure things are remaining stable in the future. In regard to her history of chronic diarrhea, this does not seem overly problematic at the present time given her description of the Lomotil giving her good symptomatic relief for the most part. In regard to the positive GI panel for EPEC, I am going to repeat that today to see if the infection persists before making a definitive commitment to treating with antibiotics. Again, I would like to hold off on antibiotics if possible since the EPEC may not be a true pathogen and I would like to avoid giving her any type of secondary diarrhea from the antibiotic itself. While her recent stool specimens seem to indicate some possible component of pancreatic insufficiency, her clinical history of the improved bowel regimen with Lomotil and no significant weight loss would tend to go against any clinically significant pancreatic insufficiency. As such, I will hold off on starting her on any pancreatic enzyme replacement. As she states, she is on so many medications now she would really like to avoid having to take extra medication if at all possible. However, I shall check a CT scan of the pancreas to rule out the unlikely possibility of a pancreatic neoplasm causing some pancreatic duct obstruction with associated pancreatic insufficiency on that basis. Again, given her good clinical appearance without any weight loss or jaundice, I tend to doubt that will be the case. If things remain stable and it does not appear that she needs pancreatic enzyme replacement, I will then see her in one year for a followup visit. However, I did advise her to definitely call me if the diarrhea worsens or if she develops any other problems or issues that I can be of assistance with in the interim. Alice was comfortable with this plan. Thank you again for allowing me to participate in Alice's care. I shall continue to keep you advised of her progress. 03/08/2024 Pancreatic insufficiency (ICD-10 - K86.89) Overall, Alice appears well from a clinical standpoint. Her previous anemia has remained quite stable and she does not have any signs or symptoms of recurrent GI blood loss despite the continued use of her Coumadin. As such, I did advise her to continue her PPI and iron replacement. However, I would recommend that she continue to have periodic CBCs to be sure things are remaining stable in the future. In regard to her history of chronic diarrhea, this does not seem overly problematic at the present time given her description of the Lomotil giving her good symptomatic relief for the most part. In regard to the positive GI panel for EPEC, I am going to repeat that today to see if the infection persists before making a definitive commitment to treating with antibiotics. Again, I would like to hold off on antibiotics if possible since the EPEC may not be a true pathogen and I would like to avoid giving her any type of secondary diarrhea from the antibiotic itself. While her recent stool specimens seem to indicate some possible component of pancreatic insufficiency, her clinical history of the improved bowel regimen with Lomotil and no significant weight loss would tend to go against any clinically significant pancreatic insufficiency. As such, I will hold off on starting her on any pancreatic enzyme replacement. As she states, she is on so many medications now she would really like to avoid having to take extra medication if at all possible. However, I shall check a CT scan of the pancreas to rule out the unlikely possibility of a pancreatic neoplasm causing some pancreatic duct obstruction with associated pancreatic insufficiency on that basis. Again, given her good clinical appearance without any weight loss or jaundice, I tend to doubt that will be the case. If things remain stable and it does not appear that she needs pancreatic enzyme replacement, I will then see her in one year for a followup visit. However, I did advise her to definitely call me if the diarrhea worsens or if she develops any other problems or issues that I can be of assistance with in the interim. Alice was comfortable with this plan. Thank you again for allowing me to participate in Alice's care. I shall continue to keep you advised of her progress. Plan Of Treatment Treatment Notes Assessment Notes Chronic diarrhea Continue the daily L omotil Pending Test Test Name Order Date CT ABD & PELVIS WITH PO CONT ONLY 2023 GI PANEL 03/08/2024 Next Appt Details Follow Up: 1 Year, Reason: Provider Name:Steven Haji , 03/07/2025 01:00:00 PM, [address] [place] [address], [address], [place], [address], Progress Notes * ALICE CARTER ADOB: 0 (83 yo F)Acc No.[id number]:03/08/2024 Progress Notes Patient:?ALICE CARTER A Provider:?Steven Haji MD :[id number]???Age:83 Y???Sex:Female D ate:03/08/2024 Address:[address] [place], [place] [id number] Pcp:Jamel Mansfield MD Subjective: * Chief Complaints: * ???Patient presents today fo r ANEMIA * HPI: ???incontinence:? I saw Alice in followup today in regard to her previous anemia and ongoing issues with diarrhea. ?I last saw Alice in August. Since that time she has been feeling well other than her issues with diarrhea and different problems with aches and pains in different joints. She has had no signs of bleeding and her blood counts have remained stable with her most recent CBC in early November showing a hemoglobin of 13.6 with a normal MCV. She enjoys a good appetite and denies any significant heartburn or dysphagia. She denies any abdominal pain, jaundice, nor weight loss. She has not noticed any melena nor hematochezia. ?She does describe that her bowel movements have remained loose, but she is presently using one Lomotil every morning and that seems to control things for her fairly well throughout the day. In fact she occasionally will have to stop the Lomotil due to some transient constipation. 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 I also checked a stool pancreatic elastase and trypsin level in regard to possible pancreatic insufficiency. These both came back low and in the range of potential pancreatic insufficiency. A stool specimen for fecal fat was negative. ?I had reviewed the finding of the EPEC with her in the GI panel but opted to hold off on treating that as sometimes that can just be a normal pathogen and may not be causing any particular symptoms. I did not want to give her antibiotics unnecessarily and risk causing worsening diarrhea or a secondary C. difficile infection. ?Her other labs have included a negative stool for C. difficile, normal chemistries, LFTs, normal TSH and and albumin of 3.8. ?Of note, she does not have a previous history of pancreatic disease. I don't see any imaging studies of the pancreas dating back to at least 2019 in the [facility] system. * ROS:?General/Constitutional:?Change in appetite?denies.?Chills?denies.?Fatigue?admits, in relation to her recurrent anemia.?Ophthalmologic:?Comments?all negative.?ENT:?Comments?all negative.?Respiratory:?Admits?Cough.?Cardiovascular:?Chest pain?denies.?Orthopnea?denies.?Gastrointestinal:?Comments?See HPI for details.?Genitourinary:?Hematuria?denies.?Dysuria?denies.?Incontinence?admits, admits.?Musculoskeletal:?Weakness?denies.?Skin:?Itching?denies.?Rash?denies.?Neurologic:?Headache?denies.?Seizures?denies.?Psychiatric:?Comments?all negative.? * Medical History:? 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 Siddiqi at [facility] 08/14/2020 and 11/2020 * Hospitalization/Major Diagno stic Procedure:?Hospitalized for 2 weeks due to pneumonia, CHF, and Afib, and then rehab for 2 weeks. Spring 2022 * Family History:?Father: dece ased.?Mother: , diagnosed with Heart disease, Colon polyps.?Maternal Grand Mother: , diagnosed with Colon cancer.? No colorectal cancer in 1st degree relatives Granddaughter(her daughter's daughter) has Crohn's Daughter has microscopic colitis. * Social History:?Tobacco Use:?Tobacco Use/Smoking?Patient is a?former smoker.?Drugs/Alcohol:?Alcohol Screen?Points: 2, Interpretation: Negative.?Miscellaneous:?Marital status: . Occupation: retired. ???Nonsmoker >10 yrs; no sig alcohol. * Medications:?TakingSpironola ctone 25 MG Tablet 1 tablet Orally Potassium 1 tab Oral Incruse Ellipta 62.5 MCG/ACT Aerosol Powder Breath Activated 1 puff Inhalation Once a daydilTIAZem HCl ER 240 MG Tablet Extended Release 24 Hour 1 tablet Orally Once a dayWarfarin Sodium 2 MG Tablet 1 tablet Orally Once a dayMetoprolol Succinate 100 MG Capsule ER 24 Hour Sprinkle 1 capsule Orally Once a dayTorsemide 20 MG Tablet 2 tablets Orally Once a daytraZODone HCl 50 MG Tablet 1 tablet at bedtime Orally Once a dayAtorvastatin Calcium 40 MG Tablet 1 tablet Orally Once a dayVitamin B 12 5000 mg 1 tablet Orally once a dayLansoprazole 30 MG Capsule Delayed Release 1 capsule before a meal Orally twice a day /prnVitamin D-3 Dilt-XR Montelukast Sodium Januvia Citalopram Hydrobromide Mirtazapine iron 65 mg tablet 1 tablet Oral bidBreo Ellipta 200-25 MCG/ACT Aerosol Powder Breath Activated Inhalation Lomotil 2.5-0.025 MG Tablet Take 1 or 2 Orally Every morning on a daily and regular basis to try to prevent diarrhea, and then take 1 or 2 every 4 to 6 hours as needed for diarrhea later in the dayTaking Spironolactone 25 MG Tablet 1 tablet Orally Taking Potassium 1 tab Oral Taking Incruse Ellipta 62.5 MCG/ACT Aerosol Powder Breath Activated 1 puff Inhalation Once a dayTaking dilTIAZem HCl ER 240 MG Tablet Extended Release 24 Hour 1 tablet Orally Once a dayTaking Warfarin Sodium 2 MG Tablet 1 tablet Orally Once a dayTaking Metoprolol Succinate 100 MG Capsule ER 24 Hour Sprinkle 1 capsule Orally Once a dayTaking Torsemide 20 MG Tablet 2 tablets Orally Once a dayTaking traZODone HCl 50 MG Tablet 1 tablet at bedtime Orally Once a dayTaking Atorvastatin Calcium 40 MG Tablet 1 tablet Orally Once a dayTaking Vitamin B 12 5000 mg 1 tablet Orally once a dayTaking Lansoprazole 30 MG Capsule Delayed Release 1 capsule before a meal Orally twice a day /prnTaking Vitamin D-3 Taking Dilt-XR Taking Montelukast Sodium Taking Januvia Taking Citalopram Hydrobromide Taking Mirtazapine Taking iron 65 mg tablet 1 tablet Oral bidTaking Breo Ellipta 200-25 MCG/ACT Aerosol Powder Breath Activated Inhalation Taking Lomotil 2.5-0.025 MG Tablet Take 1 or 2 Orally Every morning on a daily and regular basis to try to prevent diarrhea, and then take 1 or 2 every 4 to 6 hours as needed for diarrhea later in the dayNot-Taking/PRNClopidogrel Bisulfate 75 MG Tablet Oral Allopurinol 100 MG Tablet Oral Cilostazol Not-Taking/PRN Clopidogrel Bisulfate 75 MG Tablet Oral Not-Taking/PRN Allopurinol 100 MG Tablet Oral Not-Taking/PRN Cilostazol DiscontinuedGlimepiride 1 MG Tablet 1 tablet with breakfast or the first main meal of the day Orally Once a dayMagnesium 400 mg Tablet 1 tablet Orally as neededMedication List reviewed and reconciled with the patientDiscontinued Glimepiride 1 MG Tablet 1 tablet with breakfast or the first main meal of the day Orally Once a dayDiscontinued Magnesium 400 mg Tablet 1 tablet Orally as neededMedication List reviewed and reconciled with the patient * Allergies:?Penicillincontras aimee berumen[Allergies Verified] Objective: * Vitals:?Wt: 189 lb 6 oz, Ht: 62.5 in, BMI:34.08 Index, BP: 118/72 mm Hg, Temp: 95.5. * Examination: ???General Examination: ?GENERAL APPEARANCE:?pleasant, well nourished, well developed, in no acute distress--she does appear somewhat pale.?EYES:?sclera non-icteric.?ORAL CAVITY:?mucosa moist.?NECK/THYROID:?no cervical lymphadenopathy, neck supple.?SKIN:?nonjaundiced, no spider angiomata.?HEART:?S1, S2 normal.?LUNGS:?clear to auscultation bilaterally.?ABDOMEN:?normal bowel sounds, no guarding or rigidity, no guarding or rigidity, no masses palpable, soft, nontender, nondistended.?EXTREMITIES:?no edema.?NEUROLOGIC:?alert and oriented.? Assessment: * Assessment: 1.?Iron deficiency anemia, u nspecified iron deficiency anemia type - D50.9 (Primary)?2.?Gastroesophageal reflux disease, esophagitis presence not specified - K21.9?3.?Chronic diarrhea - K52.9?4.?Pancreatic insufficiency - K86.89? Overall, Alice appears well from a clinical standpoint. Her previous anemia has remained quite stable and she does not have any signs or symptoms of recurrent GI blood loss despite the continued use of her Coumadin. As such, I did advise her to continue her PPI and iron replacement. However, I would recommend that she continue to have periodic CBCs to be sure things are remaining stable in the future. In regard to her history of chronic diarrhea, this does not seem overly problematic at the present time given her description of the Lomotil giving her good symptomatic relief for the most part. In regard to the positive GI panel for EPEC, I am going to repeat that today to see if the infection persists before making a definitive commitment to treating with antibiotics. Again, I would like to hold off on antibiotics if possible since the EPEC may not be a true pathogen and I would like to avoid giving her any type of secondary diarrhea from the antibiotic itself. While her recent stool specimens seem to indicate some possible component of pancreatic insufficiency, her clinical history of the improved bowel regimen with Lomotil and no significant weight loss would tend to go against any clinically significant pancreatic insufficiency. As such, I will hold off on starting her on any pancreatic enzyme replacement. As she states, she is on so many medications now she would really like to avoid having to take extra medication if at all possible. However, I shall check a CT scan of the pancreas to rule out the unlikely possibility of a pancreatic neoplasm causing some pancreatic duct obstruction with associated pancreatic insufficiency on that basis. Again, given her good clinical appearance without any weight loss or jaundice, I tend to doubt that will be the case. If things remain stable and it does not appear that she needs pancreatic enzyme replacement, I will then see her in one year for a followup visit. However, I did advise her to definitely call me if the diarrhea worsens or if she develops any other problems or issues that I can be of assistance with in the interim. Alice was comfortable with this plan. Thank you again for allowing me to participate in Alice's care. I shall continue to keep you advised of her progress. Plan: * Treatment: * Notes: Continue the daily Lomotil??2.?Pancreatic insufficiency?Imaging: CT ABD & PELVIS WITH PO CONT ONLY* Virginia Hodge 03/20/2024 0 9:26:24 AM EST > I faxed this order to [facility] central scheduling and I called their and I spoke with Essence and she said that their is no fasting for this Ct scan but the pt has to arrive 2 hrs early for the oral contrast, the Ct scan is on WednesdayApr 28 at 2:45pm and the pt is to arrive for 12:45pm to the [facility] radiology dept to drink the prep. I mailed this order to the pt as well. Thanks * * Procedure Codes:?1036F TOBAC CO NON-[id number] BP SCR NOT PRFRM REC REASON NOS * Preventive Medicine:? ??Counseling:?Care goal follow-up plan:?Above Normal BMI Follow-up?Giving encouragement to exercise,?BMI management provided?Yes.? ??Urinary Incontinence:?Urinary Incontinence?Assessment:?Present,?Plan of care documented:?Yes,?Type of plan of care:?Lifestyle interventions.? ??Screenings:?Fall Risk Screening?Fall Risk Assessment:?No falls in the past year,?Screening:?No falls in the past year,?Assessment:?Not performed, no reason specified,?Plan of Care:?Not documented, no reason specified.? * Follow Up:?1 Year * * Sign off status: Completed true * Provider:?Steven Haji MD Date:? 024 Generated for Britton clemens/Fabienne/Thoams on:?08/15/2024 05:43 PM EDT History and Physical Notes * HPI (History of Present Illness) Category Sub-Category Detail Notes Category Not es incontinence I saw Alice in followup today in regard to her previous anemia and ongoing issues with diarrhea. I last saw Alice in August. Since that time she has been feeling well other than her issues with diarrhea and different problems with aches and pains in different joints. She has had no signs of bleeding and her blood counts have remained stable with her most recent CBC in early November showing a hemoglobin of 13.6 with a normal MCV. She enjoys a good appetite and denies any significant heartburn or dysphagia. She denies any abdominal pain, jaundice, nor weight loss. She has not noticed any melena nor hematochezia. She does describe that her bowel movements have remained loose, but she is presently using one Lomotil every morning and that seems to control things for her fairly well throughout the day. In fact she occasionally will have to stop the Lomotil due to some transient constipation. A stool specimen over the summer was positive for Enteropathogenic Escherichia coli(EPEC) on the GI panel. I also checked a stool pancreatic elastase and trypsin level in regard to possible pancreatic insufficiency. These both came back low and in the range of potential pancreatic insufficiency. A stool specimen for fecal fat was negative. 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 I did not want to give her antibiotics unnecessarily and risk causing worsening diarrhea or a secondary C. difficile infection. Her other labs have included a negative stool for C. difficile, normal chemistries, LFTs, normal TSH and and albumin of 3.8. Of note, she does not have a previous history of pancreatic disease. I don't see any imaging studies of the pancreas dating back to at least 2019 in the [facility] system. Examination Category Sub-Category Detail Notes Category Not es General Examination GENERAL APPEARANCE: pleasant , well [...]
--- OUTSIDE RECORDS SUMMARY | 2024-08-15 17:44 | XMS_ITS ---
Author Organization [facility] Address [address] [place] [address] Care Team Providers Care Forklift Truck Mechanic Name Role Phone Donal BELTRÁN, [place] Primary Care Provider UnaSteven Edwards [phone] REASON FOR VISIT stool specimen rejected Encounters Encounter Location Date Provider Diagnosis [facility] [address] [place] [address] 12/15/2023 Steven Haji Plan Of Treatment Next Appt Details Provider Name:Steven Haji , 03/07/2025 01:00:00 PM, [address], [address], [place], [address], Progress Notes * SUKHDEEP CARTER ADOB: 0 (83 yo F)Acc No.[id number]:12/15/2023 Patient:?SUKHDEEP CARTER :1940???Age:83 Y???Sex:Female Address:[address] [place] [address] [address], [place] [address] * true * Date:? Generated for Printi jayleen/Fabienne/eTransmitting on:?08/15/2024 05:43 PM EDT
--- OUTSIDE RECORDS SUMMARY | 2024-08-15 17:44 | XMS_ITS ---
Author Organization [facility] Care Team Providers Care Surveillance System Monitor Name Role Phone Beto Vail Unavailable Unavailable Vashti Schaffer Unavailable Unavailable Sugey Valdivia Unavailable Unavailable Allergies and adverse reactions Code CodeSystem Substance Reaction Severity StartDate Concern Status 7984 RXNORM Penicillin Unknown 09/30/2022 active Iodine Unknown 09/30/2022 active Care Team Name Role Address Phone Organization Dates Beto Vail PCP [address], [address], [place] (Office): : [facility] 09/30/2022 - 10/17/2022 Vashti Schaffer Attending Physician [address], [address], [place] (Office): : [facility] 09/30/2022 - 10/17/2022 Sugey Valdivia Attending Physician [address], [address], [place] (Office): [facility] 09/30/2022 - 10/17/2022 Immunizations Immunization Status Vaccine Details Vaccine Code CodeSystem Diego e Notes Influenza completed Influenza, split virus, trivalent, injectable, contains preservative 141 CVX created date: 10/06/2022 administered date: 03/16/2022 PCV13 (Pneumococcal Conjugate)Vaccine completed pneumococcal conjugate vaccine, 13 valent 133 CVX created date: 10/06/2022 administered date: 02/09/2018 SARS-COV-2 (COVID-19) completed SARS-COV-2 (COVID-19) vaccine, mRNA, spike protein, LNP, preservative free, 30 mcg/0.3mL dose Step 2 of Multi-step with next step required 208 CVX created date: 10/06/2022 administered date: 07/12/2020 SARS-COV-2 (COVID-19) completed SARS-COV-2 (COVID-19) vaccine, mRNA, spike protein, LNP, preservative free, 30 mcg/0.3mL dose Mfg: [facility] Step 1 of Multi-step with next step required 208 CVX created date: 10/06/2022 administered date: 06/21/2020 Pfizer Covid-19 Booster (SARS-COV-2) vaccine completed SARS-COV-2 (COVID-19) vaccine, mRNA, spike protein, LNP, preservative free, 30 mcg/0.3mL dose 208 CVX created date: 10/06/2022 administered date: 10/06/2021 Pfizer Covid-19 Booster (SARS-COV-2) vaccine completed SARS-COV-2 (COVID-19) vaccine, mRNA, spike protein, LNP, preservative free, 30 mcg/0.3mL dose 208 CVX created date: 10/06/2022 administered date: 03/14/2021 Moderna COVID-19 Bi-valent Solution completed SARS-COV-2 (COVID-19) vaccine, mRNA, spike protein, LNP, bivalent, preservative free, 50 mcg/0.5 mL or 25 mcg/0.25 mL dose 229 CVX created date: 09/30/2022 administered date: 03/16/2022 Mental Status Section Date Assessment Total Score Description 10/17/2022 BIMS 15 cognitively int act CAM 0 No delirium ind icated PHQ-9 01 minimal depress ion 10/06/2022 BIMS 15 cognitively int act CAM 0 No delirium ind icated PHQ-9 16 moderately beatriz re depression Problems Problem # Description Date of onset Resolved Date Code CodeSystem Concern Status 1 PULMONARY FIBROSIS, UNSPECIFIED 10/16/[address] active 2 PNEUMONIA, UNSPECIFIED ORGANISM 10/06/[address] active 3 CHRONIC OBSTRUCTIVE PULMONARY DISEASE, UNSPECIFIED 10/02/[address] active 4 ANXIETY DISORDER, UNSPECIFIED 09/30/[address] active 5 ESSENTIAL (PRIMARY) HYPERTENSION 09/30/[address] active 6 HEART FAILURE, UNSPECIFIED 09/30/[address] active 7 MAJOR DEPRESSIVE DISORDER, RECURRENT, UNSPECIFIED 09/30/[address] active 8 MORBID (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 09/30/[address] active 9 OTHER LACK OF COORDINATION 09/30/[address] active 10 PERIPHERAL VASCULAR DISEASE, UNSPECIFIED 09/30/[address] active 11 TYPE 2 DIABETES MELLITUS WITHOUT COMPLICATIONS 09/30/[address] active 12 UNSPECIFIED ATRIAL FIBRILLATION 09/30/[address] active 13 UNSPECIFIED PROTEIN-CALORIE MALNUTRITION 09/30/[address] active Reason for Referral No Reasons for Referral Entered Social History Social History Observation Description Start Date End Date Code Code System Current Smoking Status Tobacco smoking consumption unknown 240308350 SNOMED CT Sex Assigned At Female 1940 84913-8 [facility] Vital Signs Code Code System Vitals Name Values and Units Timing Information 34463-7 [facility] Weight Vlqzo=246.2 Units=Lbs 08/2022 9279-1 [facility] Respiratory Rate Value=15.0 Units=/m in 10/16/2022 8462-4 [facility] Blood Pressure-Diastolic Value=59 Un its=mmHg 10/16/2022 8480-6 [facility] Blood Pressure-Systolic Uhdww=280 Un its=mmHg 10/16/2022 8310-5 [facility] Body Temperature Value=98.4 Units=?? F 10/16/2022 8867-4 [facility] Heart rate Value=71.0 Units=/min 06/2022 14988-6 [facility] O2 % BldC Oximetry Value=94.0 Units= % 10/16/2022 2339-0 [facility] Blood Sugar Prkec=360.0 Units=mg/dL 10/07/2022 64277-4 [facility] Pain Level Value=0.0 09/30/2022 8302-2 [facility] Height Value=62.0 Units=Inches 09/30/2022
--- OUTSIDE RECORDS SUMMARY | 2024-08-15 17:44 | XMS_ITS | Clinical Summary ---
Author Organization [facility] Address [address] [place] [address] Care Team Providers Care Petroleum Engineering Professor Name Role Phone Jamel Mansfield MD Primary Care Provider [phone] Social History Tobacco Use Types Packs/Day Years [...] age to complete this topic Insurance MEDICARE [employer] Care Teams Petroleum Engineering Professor Relationship Specialty Start Date End Date Jamel Mansfield MD [address] [place] [address] DRIVE [address] [place] [address] PCP - General Internal Medicine 10/08/22
== END 2024-08-15 15:40 | disposition home or self-care (01) ==
LOC: HO.HOS 14:54
PROVIDERS: PCP Internal Medicine; Visit Provider Orthopaedic Surgery
DX: M25.811 Other specified joint disorders, right shoulder (principal)
CPT/HCPCS: 20610; 99203

== ENCOUNTER → 2024-08-15 14:53 | Outpatient (BNVA) | payer MEDICARE, OTHER, SELFPAY | PROVIDERS: PCP Internal Medicine; Visit Provider Orthopaedic Surgery | DX: M25.811 Other specified joint disorders, right shoulder (principal) | CPT/HCPCS: 20610; 99202; J1010; J2003 ==

== ENCOUNTER 2024-09-18 10:56 | Outpatient (REF) | payer MEDICARE, OTHER, SELFPAY ==
--- OUTSIDE RECORDS SUMMARY | 2024-09-18 12:36 | XMS_ITS ---
Author Organization [facility] Address [address] [place] [address] Care Team Providers Care Thermospray Operator Name Role Phone Donal BELTRÁN, [place] Primary Care Provider Steven Irving Unavailable [phone] Allergies Allergen (clinical drug ingredient) Drug/Non Drug [...] W/U Status Risk Notes Problem Pancreatic insufficiency (09126465) Pancreatic insufficiency (K86.89) Active confirmed Vital Signs Temperature 95.5 degrees Fahrenheit 03/08/20 24 Blood pressure systolic 118 mm Hg 03/08/20 24 Blood pressure diastolic 72 mm Hg 024 Height 62.5 in 03/08/2024 Weight 189 lb 6 oz lbs 03/08/2024 BMI 34.08 kg/m2 03/08/2024 Encounters Encounter Location Date Provider Diagnosis [facility] [address] [place] [address] 03/08/2024 Steven Haji Gastroesophageal ref lux disease, [...] Provider Name:Steven Haji , 03/07/2025 01:00:00 PM, [address] [place] [address], [address], [place], [address], Progress Notes * ALICE CARTER ADOB: 0 (83 yo F)Acc No.[id number]:03/08/2024 Progress Notes Patient:?ALICE CARTER A Provider:?Steven Haji MD :1940???Age:83 Y???Sex:Female D ate:03/08/2024 Address:[address] [place], [place] [id number] Pcp:Jamel Mansfield MD Subjective: * Chief Complaints: [...] back to at least 2019 in the [facility] system. * ROS:?General/Constitutional:?Change in appetite?denies.?Chills?denies.?Fatigue?admits, in relation [...] as described by the patient-Dr. Siddiqi at [facility] 08/14/2020 and 11/2020 * Hospitalization/Major Diagno stic [...] EST > I faxed this order to [facility] central scheduling and I called their and I spoke with Essence and she said that their is no fasting for this Ct scan but the pt has to arrive 2 hrs early for the oral contrast, the Ct scan is on WednesdayApr 28 at 2:45pm and the pt is to arrive for 12:45pm to the [facility] radiology dept to drink the prep. I mailed this order to the pt as well. Thanks * * Procedure Codes:?1036F TOBAC CO NON-[id number] BP SCR NOT PRFRM REC REASON NOS [...] Haji MD Date:? 024 Generated for Britton clemens/Fabienne/Thomas on:?09/18/2024 12:36 PM EDT History and Physical Notes * [...] back to at least 2019 in the [facility] system. Examination Category Sub-Category Detail Notes Category [...]
--- OUTSIDE RECORDS SUMMARY | 2024-09-18 12:36 | XMS_ITS | Patient Health Record ---
Author Organization [facility] Address [address] [place] [address] Care Team Providers Care Private Chef Name Role Phone Donal BELTRÁN, [place] Primary Care Provider Freeman Lindo Unavailable [phone] Allergies Allergen (clinical drug ingredient) Drug/Non Drug [...] Problem Status W/U Status Risk Notes Problem 42749407 Type 2 diabetes mellitus with diabetic polyneuropathy (E11.42) Active confirmed Problem Bilateral atherosclerosis of arteries of lower limbs (disorder) (28746252427547367 ) Unspecified atherosclerosis of [place] arteries of extremities, bilateral legs (I70.203) Active confirmed Problem Acquired hammer toe of left foot (7647591785169809) Other hammer toe(s) (acquired), left foot (M20.42) Active confirmed Problem Polyneuropathy due to type 2 diabetes mellitus (695256407) Type 2 diabetes mellitus with diabetic polyneuropathy (E11.42) Active confirmed Problem Polyneuropathy due to diabetes mellitus type I (502889122) Type 1 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) Active confirmed Plan Of Treatment Pending Test Test Name Order Date X ray : Foot, left 2V 08/02/2014 X ray : Foot, left 2V 08/22/2014 X ray : Foot, left 2V 08/30/2014 X ray : Foot, left 2V 09/13/2014 X ray : Foot, right 2V 10/10/2014 *Uric Acid, Serum 10/10/2014 *Sedimentation Rate-Westergren 5 89666-HGGWIMA NAIL, 1-5 09/13/2014 52045-AKEW SKIN LESIONS, 2 TO 4 07/23/19 21 55180-YCBZ SKIN LESIONS, 2 TO 4 10/22/19 21 32088-IIJL SKIN LESIONS, 2 TO 4 01/14/20 21 53868-OHHL SKIN LESIONS, 2 TO 4 04/23/20 21 44427-USZS SKIN LESIONS, 2 TO 4 08/07/19 22 58205, E8128-NKCYR/INJECT, JOINT/BURSA 0 10/24/2015 05144, J0702- Neuroma/Injection 05/31/19 15 75497, J0702- Neuroma/Injection 10/26/19 15 Insurance Providers Payer Name Payer Address Payer Phone Subscriber Number Group Number Insured Name Patient Relationship to Insured Coverage Start Date Coverage End Date Medicare [employer] [address] [place] [address] [id number] Alice Martinez Self - patient is the insured [facility] [address] [place] [address] [id number] Alice Martinez Self - patient is [...] legs Guille 12/10/2020 Hospitalization History Reason Date(Month/Year) [facility]- Bunion surgery left foot 08/16/14 [facility] vascular sx 08/14/20-08/21/20
--- OUTSIDE RECORDS SUMMARY | 2024-09-18 12:36 | XMS_ITS ---
Author Organization [facility] Address [address] [place] [address] Care Team Providers Care Research Animal Attendant Name Role Phone Donal BELTRÁN, [place] Primary Care Provider UnaSteven Edwards [phone] REASON FOR VISIT stool specimen rejected Encounters Encounter Location Date Provider Diagnosis [facility] [address] [place] [address] 12/15/2023 Steven Haji Plan Of Treatment Next Appt Details Provider Name:Steven Haji , 03/07/2025 01:00:00 PM, [address], [address], [place], [address], Progress Notes * SUKHDEEP CARTER ADOB: 0 (83 yo F)Acc No.[id number]:12/15/2023 Patient:?SUKHDEEP CARTER :1940???Age:83 Y???Sex:Female Address:[address] [place] [address] [address], [place] [address] * true * Date:? Generated for Printi jayleen/Fabienne/eTransmitting on:?09/18/2024 12:35 PM EDT
--- OUTSIDE RECORDS SUMMARY | 2024-09-18 12:37 | XMS_ITS ---
Author Organization [facility] Address [address] [place] [address] Care Team Providers Care Director Radio News Name Role Phone Donal BELTRÁN, [place] Primary Care Provider UnaSteven Edwards [phone] Encounters Encounter Location Date Provider Diagnosis [facility] [address] [place] [address] 03/19/2024 Steven Haji Plan Of Treatment Next Appt Details Provider Name:Steven Haji , 03/07/2025 01:00:00 PM, [address], [address], [place], [address], Progress Notes * SUKHDEEP CARTER ADOB: 0 (83 yo F)Acc No.[id number]:03/19/2024 Patient:?SUKHDEEP CARTER :1940???Age:83 Y???Sex:Female Address:[address] [place] [address] [address] , [place] [address] Subjective: * Chief Complaints: * ??? * Medical History:? * Surgical History:? * Hospitalization/Major Diagno stic Procedure:? * Medications:? Objective: Assessment: Plan: * Treatment: * Procedure Codes:? * true * Date:? Generated for Reni jayleen/Famonicag/eTransmitting on:?09/18/2024 12:36 PM EDT
--- OUTSIDE RECORDS SUMMARY | 2024-09-18 12:37 | XMS_ITS | Patient Health Record ---
Author Organization [facility] Address [address] [place] [address] Care Team Providers Care Silver Solderer Name Role Phone Donal BELTRÁN, [place] Primary Care Provider Steven Irving [phone] Allergies Allergen (clinical drug ingredient) Drug/Non Drug Allergy documented on EMR Reaction Allergy Type Onset Date Status Penicillin Unknown Drug Allergy Active contrast dye (uncoded) Unknown Allergy Active Results Component Value Reference Range Notes Leukocytes Stool Qualitative Reviewed date:12/15/2023 11:09:11 PM Interpretation: Performing Lab:[facility], [address] [place] [phone] Notes/Report: Leukocytes Stool Qualitative NEGATIVE NEGATIVE Pancreatic Elastase-1 Reviewed date:01/01/2024 10:04:49 PM Interpretation: Performing Lab:[facility], [address] [place] [phone] Notes/Report: Pancreatic Elastase-1 123 Adult and Pediatric Reference Ranges for Pancreatic Elastase-1: Normal: >200 mcg/g Moderate Pancreatic Insufficiency: 100-200 mcg/g Severe Pancreatic Insufficiency: <100 mcg/g Elastase-1 (E-1) assay results are expressed in mcg/g, which represent mcg E1/g feces. It is not necessary to interrupt enzyme substitution therapy. THIS TEST WAS PERFORMED AT: [facility] [address] [place] [address] BRENDON FOSTER MD,PHD,LILIANA Fecal Fat Qualitative Reviewed date:12/25/2023 01:02:36 AM Interpretation: Performing Lab:[facility], [address] [place] [phone] Notes/Report: Fecal Fat Qualitative Normal Normal THIS TEST WAS PERFORMED AT: [facility] [address] [place], [place] JANNY BOCANEGRA MD,PHD Calprotectin, Fecal Reviewed date:12/25/2023 01:02:53 AM Interpretation: Performing Lab:[facility], [address] [place] [phone] Notes/Report: Calprotectin, Fecal 126 Reference Range: <50 [...] borderline values. THIS TEST WAS PERFORMED AT: [facility] [address] [place] [address] BRENDON FOSTER MD,PHD,LILIANA Ova and Parasite Reviewed date:12/29/2023 06:45:37 PM Interpretation: Performing Lab:[address] [address] Notes/Report: Ova and Parasite SEE NOTE OVA AND PARASITES, CONC AND PERM SMEAR Micro Number: [id number] Test Status: Final Specimen Source: Stool Specimen [...] infection. For additional information, please refer to https://education.[employer]/faq/FAQ 203 (This link is being provided for informational/ educational purposes only.) THIS TEST WAS PERFORMED AT: [facility] [address] [place] [phone] SUGEY QUEVEDO MD CDiff Gene PCR Reviewed date:12/15/2023 11:09:17 PM Interpretation: Performing Lab:[address] [address] Notes/Report: CDiff Gene PCR NEGATIVE Negative If C. difficile strongly suspected despite one negative test, a second test may be sent vs. empiric treatment for C. difficile infection. GI PANEL Reviewed date:01/01/2024 10:03:38 PM Interpretation: Performing Lab:[facility], [address] [place] [address] Notes/Report: Campylobacter Not Detected Not Detect. Plesiomonas [...] Multiplexed PCR, utilizing the Biofire Film Array. MAMMOGRAM DIGITAL BILATERAL SCREEN Reviewed date:03/08/2024 01:31:20 PM Interpretation:Normal Performing Lab: Notes/Report: Normal GI PANEL Reviewed date:04/25/2024 09:24:57 PM Interpretation: Performing Lab:[facility], [address] [place] [phone] Notes/Report: Campylobacter Not Detected Not Detect. Plesiomonas [...] reviewed by provider) Interpretation: Performing Lab: Notes/Report: [address] [address] [address] Scan Report Signed Patient: Alice Carter MR#: [id number] [birth year] : 1940 Acct:[id number] Age/Sex: 83 / F ADM Date: 06/02/24 Loc: HO.CT Attending Dr: Steven Haji MD Ordering Physician: Steven Haji MD Date of Service: 06/02/24 Procedure(s): CT abdomen pelvis wo IV con Accession Number(s): [id number] cc: Jamel Mansfield MD; Steven Haji MD Report Number: [id number]: Total DLP = 756.00 mGy-cm EXAMINATION: CT [...] OV> 06/05/24 0842 DD/ 1530 TD/TT: 06/02/24 6188 Tunnel Inspector: [address] [address] [address] Scan Report Signed Patient: Clemente Carter MR#: [id number] [birth year] : 1940 Acct:[id number] Age/Sex: 83 / F ADM Date: 06/02/24 Loc: HO.CT Attending Dr: Steven Haji MD Ordering Physician: Steven Haji MD Date of Service: 06/02/24 Procedure(s): CT abdomen pelvis wo IV con Accession Number(s): [id number] cc: Jamel Mansfield MD; Steven Haji MD Report Number: [id number]: Total DLP = 756.00 mGy-cm EXAMINATION: CT ABDO MEN PELVIS WITHOUT IV CONTRAST HISTORY: chronic diarrhea, pancreatic insuff. COMPARISON: Correlat ion is made with the report from a prior study dated 02/10/2010. Becki ges are not available for direct comparison. TECHNIQUE: CT scan o f the abdomen and pelvis was performed without contrast using stand olga departmental protocol. Coronal and sagittal reformatted images w ere generated and reviewed. Intravenous contrast was not utilized at the request of the referring physician. The patient received ora l contrast material. This CT exam was performed with one or more of the following dose reduction techniques : automated exposure control, adjustment of the mA and/or kV according to patient size, use of iterative reconstruction technique. DLP: 756 mGy-cm FINDINGS: LOWER CHEST: The visualized lung bases are clear. There is no pleural effusion. CARDIOVASCULATURE: T he heart is enlarged. There is mitral annular calcification. There is no pericardial effusion. LIVER: The liver is normal in size and contour. The liver has an unremarkable unenhan lorelei appearance. GALLBLADDER / BILE DUCTS: The gallbladder is unremarkable. There is no intra or extrahepati c biliary ductal dilatation. SPLEEN: The spleen i s normal in size and has an unremarkable unenhanced appearance. PANCREAS: The pancre as has an unremarkable unenhanced appearance. ADRENAL GLANDS: Ther e is a 1.2 cm right adrenal nodule measuring 29 HU in density, which is indeterminate for adenoma. However, this was described on the denis or examination. The left adrenal gland is unremarkable. KIDNEYS/RETROPERITON EUM : The right kidney is markedly atrophic. There is a 2.5 cm cyst in the interpolar region of the left kidney. No renal calculi are identifi ed. There is no hydronephrosis. LYMPH NODES: No retroperitoneal lymphadenopathy is identified in the abdomen or pelvis. VASCULATURE: An aort ic stent graft is noted. MESENTERY/PERITONEUM : No free fluid. No masses. There is no free intraperitoneal gas. STOMACH: There is a moderate hiatal hernia. The remainder of the stomach is collapsed. SMALL BOWEL: The sma ll bowel is normal in caliber. COLON: There is a la rge amount of stool throughout the colon. 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 APPENDIX: The append ix is not seen, however no inflammatory changes are seen adjacent to the cecum. URINARY BLADDER/PELV IC ORGANS: The urinary bladder is unremarkable. The patient is statu s post hysterectomy. BONES / SOFT TISSUES : There is severe degenerative disc disease of the lumbar spine. There are cannulated screws in the right femoral neck. ___ ____ CT/CT abdomen pelvis wo IV con IMPRESSION: 1. Markedly atrophic right kidney. 2. Moderate hiatal hernia. 3. Large amount of stool throughout the colon. 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 4. 1.2 cm right adre nal nodule which was described on the prior CT. Electronically nano d by: Steven Casey MD 06/05/2024 08:42 AM [facility] [place] [place] Dictated By: Steven Casey MD Signed By: <Electronically signed by Steven Casey MD in OV> 06/05/24 0842 DD/ 1530 TD/TT: 06/02/24 1738 Tunnel Inspector: Reason For Referral No Information Medications Medication [...] mg 1 tablet Oral bid A ctive Immunizations Vaccine Route Administration Date Status Comme nts Flu vaccine no Preserv 3 and > Unknown 03/30/2016 Admin istered Influenza Unknown 01/24/2020 Administered Influenza Unknown 02/14/2021 Administered Influenza Unknown 02/17/2023 Administered Influenza Unknown 03/02/2023 Administered Pneumococcal Unknown 03/02/2023 Administered Social History Tobacco Use: Social History Observation Description Date Details (start date - stop date) Former Smoker NA - NA Tobacco Use/Smoking Question Answer Notes Patient is a former smoker Section Notes: Nonsmoker > 10 yrs; no sig a lcohol Nonsmoker > 10 yrs; no sig a lcohol Nonsmoker > 10 yrs; no sig a lcohol Nonsmoker > 10 yrs; no sig a lcohol Nonsmoker > 10 yrs; no sig a lcohol Nonsmoker > 10 yrs; no sig a lcohol Nonsmoker > 10 yrs; no sig a lcohol Nonsmoker > 10 yrs; no sig a lcohol Nonsmoker > 10 yrs; no sig a lcohol Nonsmoker > 10 yrs; no sig a lcohol Nonsmoker > 10 yrs; no sig a lcohol Nonsmoker > 10 yrs; no sig a lcohol Problems Problem Type SNOMED Code ICD Code Onset Dates Problem Status W/U Status Risk Notes Problem Diarrhea (85867291) Diarrhea, unspecified (R19.7) Active confirmed Problem 143329218 Gastroesophageal reflux disease, esophagitis presence not specified (K21.9) Active confirmed Problem 83615304 Heme + stool (R19.5) Active confirmed Problem Anemia (284456562) Anemia (D64.9) Active confirmed Problem 082186424 Iron deficiency anemia due to chronic blood loss (D50.0) Active confirmed Problem 245805979 Microcytic anemi a (D50.9) Active confirmed Problem 978090080 Angiodysplasia o f colon (K55.20) Active confirmed Problem 65435661 Iron deficiency anemia, unspecified iron deficiency anemia type (D50.9) Active confirmed Problem 52887391 Diarrhea, unspecified type (R19.7) Active confirmed Problem Chronic diarrhea (073627269) Chronic diarrhea (K52.9) Active confirmed Problem 53161897 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) Active confirmed Problem Pancreatic insufficiency (67207905) Pancreatic insufficiency (K86.89) Active confirmed Problem Incontinence of feces (99878499) Fecal soiling due to fecal incontinence (R15.9) Active confirmed Vital Signs Temperature 95.5 degrees Fahrenheit 03/08/2024 Blood pressure diastolic 72 mm Hg 03/08/2024 Height 62.5 in 03/08/2024 Blood pressure systolic 118 mm Hg 03/08/2024 Weight 189 lb 6 oz lbs 03/08/2024 BMI 34.08 kg/m2 03/08/2024 Encounters Encounter Location Date Provider Diagnosis [facility] [address] [place] [phone] 03/08/2024 Steven Haji Gastroesophageal ref lux disease, esophagitis presence not specified K21.9 ; Iron deficiency anemia, unspecified iron deficiency anemia type D50.9 ; Chronic diarrhea K52.9 and Pancreatic insufficiency K86.89 [facility] [address] [address] 11/30/2023 Steven Haji Diarrhea, unspecifie d R19.7 [facility] [address] [place] [phone] 12/06/2023 Steven Haji Chronic diarrhea K52 .9 [facility] [address] [place] [phone] 12/15/2023 Steven Haji [facility] [address] [address] 03/19/2024 Steven Haji Assessments Encounter Date Diagnosis (ICD Code) Assessment [...] to keep you advised of her progress. 11/30/2023 Diarrhea, unspecified (ICD-10 - R19.7) 12/06/2023 Chronic diarrhea (ICD-10 [...] advised of her progress. Plan Of Treatment Pending Test Test Name Order Date Hemoccult Cards (Non-Screening) 03/11/20 21 IRON + IBC (FE) 03/19/2021 IRON + IBC (FE) 05/20/2021 IRON + IBC (FE) 05/02/2016 IRON + IBC (FE) 01/27/2022 FERRITIN 05/02/2016 VITAMIN B12 AND FOLATE 01/27/2022 CBC w DIFF 03/19/2021 CBC w DIFF 05/20/2021 CBC w DIFF 01/27/2022 CBC w DIFF 05/02/2016 CBC w DIFF 03/11/2021 CBC w DIFF [...] pelvis wo con 06/02/2024 Ova and Parasite 11/30/2023 Ova and Parasite 12/06/2023 GI PANEL 12/06/2023 GI PANEL 03/08/2024 GI PANEL 11/30/2023 Future Test Test Name Order Date UPPER GI ENDOSCOPY 04/18/2014 UPPER GI ENDOSCOPY 05/02/2016 COLONOSCOPY 05/02/2016 UPPER GI ENDOSCOPY 01/27/2022 COLONOSCOPY 01/27/2022 Next Appt Details Provider Name:Steven Valdez Raissa , 03/07/2025 01:00:00 PM, [address] [facility], [address], [place], [address], Insurance Providers Payer Name Payer Address Payer Phone Subscriber Number Group Number Insured Name Patient Relationship to Insured Coverage Start Date Coverage End Date MEDICARE OF [place] [address] [facility] [address] [phone] [id number] ALICE CARTER Self - patient is the insured [facility] [address] [place] [phone] [id number] ALICE CARTER Self - patient is the insured Medical (General) History Medical History History ICD Code 10/25/2009 Colonoscopy--neg except for h yperplastic polyps--no IBD Tubular adenomas removed in 2002 GERD-EGD in 1997--HH, but ot herwise negative; EGD 05/2014 small HH, no esophagitis, small area of Aguilera's--no dysplasia Depression Hyperlipidemia NIDDM COPD Hypertension Denies [place],CVA,renal disease Microcytic anemia in 2015--h emoglobin 10.8 [...] stenosis. She is being followed by a sealant mixer Hospitalized 01/2022 for recu rrent anemia--Hgb 7.7 [...] as described by the patient-Dr. Siddiqi at [facility] 08/14/2020 and 11/2020 Hospitalization History Reason Date(Month/Year) Hospitalized for 2 weeks due to pneumonia, CHF, and Afib, and then rehab for 2 weeks. Spring 2022
--- OUTSIDE RECORDS SUMMARY | 2024-09-18 12:37 | XMS_ITS | Clinical Summary ---
Author Organization [facility] Facility Address [address] [place] [address] Care Team Providers Care Ux Engineer Name Role Phone Jamel Mansfield MD Primary Care Provider [phone] Social History Tobacco Use Types Packs/Day Years Used Date Smoking Tobacco: Never Assessed Comments Unknown Sex and Gender Information Value Date Recorded Sex Assigned at Not on file Legal Sex Female 1:50 PM EDT Gender Identity Not on file Sexual Orientation Not on file Plan of Treatment Health Maintenance Due Date Last Done Comments Pneumococcal Vaccine: 50+ Ye ars (2 of 2 - PPSV23) 04/06/2018 02/09/2018 Diabetes: Hemoglobin A1C 10/08/2022 Diabetes: Ophthalmology Exam 10/08/2022 Diabetes: Pedal Pulse Checked 10/08/2022 Diabetes: Sensory Foot Exam 10/08/2022 Diabetes: Visual Foot Exam 10/08/2022 Influenza Vaccine (Season Ended) 2025 02/10/20 18 Hepatitis B Vaccine Aged Out No longe r eligible based on patient's age to complete this topic Insurance Medicare [facility] Care Teams Ux Engineer Relationship Specialty Start Date End Date Jamel Mansfield MD [address] [place] [address] DRIVE [address] [place] [address] PCP - General Internal Medicine 10/08/22
[2024-09-18 13:15] LABS: MANUAL DIFF FLAG NO
[2024-09-18 13:27] LABS: Basophils Percent Auto 0.5 % (0-2); Eosinophils Absolute Auto 0.3 X10*3/uL (0.0-0.4); Eosinophils Percent Auto 4.2 % (0-4); Hematocrit 42.5 % (37.0-47.0); Hemoglobin 13.7 g/dl (12.0-16.0); Imm Gran Abs Auto 0.04 X10*3/uL (0.00-0.03); Imm Gran Pct Auto 0.5 % (0.0-0.4); Lymphocytes Absolute Auto 0.7 X10*3/uL (1.2-4.9); Lymphocytes Percent Auto 8.1 % (20-40); Mean Corpuscular HGB Conc 32.2 g/dl (31.0-35.0); Mean Corpuscular Volume 89.9 fL (80.0-98.0); Mean Platelet Volume 9.5 fL (9.4-12.3); Monocytes Absolute Auto 0.8 X10*3/uL (0.1-1.2); Monocytes Percent Auto 9.6 % (2-11); Neutrophils Absolute Auto 6.3 x10*3/uL (2.0-8.3); Neutrophils Percent Auto 77.1 % (45-73); Platelet Count 282 X10*3/uL (160-400); Red Blood Count 4.73 X10*6/uL (4.20-5.50); Red Cell Distribution Width 14.5 % (11.0-16.0); White Blood Count 8.2 X10*3/uL (4.8-10.8)
[2024-09-18 13:33] LABS: Estimated Average Glucose 146 mg/dL; Hemoglobin A1C 182.4745 umol/L; Hemoglobin A1c % 6.7 % (<6.0)
[2024-09-18 13:36] LABS: Appearance Urine Clear; Color Urine Yellow; Glucose Urine UA >=1000 mg/dL (Negative); Leukocyte Esterase Urine Small (1+) (Negative); Nitrite Urine Negative (Negative); UMIC TRIGGER UACC YES; Urine Blood Negative (Negative); Urine Ketones Negative (Negative); Urine Protein Trace mg/dL (Neg-Trace)
[2024-09-18 13:46] LABS: Alanine Aminotransferase 21 U/L (0-31); Alkaline Phosphatase 89 U/L (39-117); Anion Gap 14 (12-20); Aspartate Amino Transferase 20 U/L (5-31); Bilirubin Total 0.4 mg/dL (0.0-1.0); Blood Urea Nitrogen 32 mg/dL (9-16); Calcium 9.7 mg/dL (8.4-10.2); Carbon Dioxide 21 mmol/L (22-29); Chloride 107 mmol/L (96-108); Cholesterol 153 mg/dL (<200); Estimated Glomerular Filt Rate 36; Glucose Fasting 140 mg/dL (60-99); Potassium 4.3 mmol/L (3.3-5.1); Sodium 138 mmol/L (135-145); Total Protein 7.1 g/dL (6.5-8.0); Triglycerides 155 mg/dL (<150)
[2024-09-18 13:57] LABS: Microalbum/Creatinine Ratio Ur 17.7 ug/mg cr (<30)
[2024-09-18 14:00] LABS: Bacteria Urine 1+ (None Seen); Hyaline Casts Urine 0-2 /LPF (0-2); RBC Urine 0-2 /HPF (0-2); UACC Culture Trigger YES; WBC Urine 0-5 /HPF (0-5)
[2024-09-18 14:12] LABS: HDL Cholesterol 29 mg/dL (>40); LDL Cholesterol Calculated 93 mg/dL (<100); TSH reflex Free T4 0.24 uIU/mL (0.32-4.0); Vitamin D 25-OH Total 42.6 ng/mL (>30)
[2024-09-18 14:23] LABS: Folate 8.9 ng/mL (> or = 4.0); Vitamin B12 > 2000 pg/mL (200-900)
[2024-09-18 15:00] LABS: Free T4 (Free Thyroxine) 1.13 ng/dL (0.71-1.85)
== END 2024-09-18 10:57 | disposition home or self-care (01) ==
LOC: HO.HMGCLDS 10:56
PROVIDERS: PCP Internal Medicine; Visit Provider Internal Medicine
DX: D64.9 Anemia, unspecified (principal); E53.8 Deficiency of other specified B group vitamins; E55.9 Vitamin D deficiency, unspecified; E78.00 Pure hypercholesterolemia, unspecified; E11.9 Type 2 diabetes mellitus without complications; R30.0 Dysuria
CPT/HCPCS: 36415; 80053; 80061; 81001; 82043; 82306; 82570; 82607; 82746; 83036; 84439; 84443; 85025; 87086

== ENCOUNTER 2024-09-19 14:16 | Outpatient (AMB) | payer MEDICARE, OTHER, SELFPAY ==
[2024-09-19 14:27] VITALS: BP 120/78; PULSE 54; O2SAT 93; BMI 33.7
--- NOTE | 2024-09-19 14:27 | A.OFFVIS_ITS ---
Vital Signs 09/19/24 14:27 Height 5 ft 2 in Weight 184 lb 1.376 oz BMI 33.7 BP 120/78 Blood Pressure Location Lt brachial Position Sitting Pulse 54 Pulse Source Pulse Oximeter Pulse Oximetry (%) 93 Oxygen Delivery Method Room Air Intake Visit Reasons: Shortness of breath Intake Note: pt is here for follow up and states she is okay at her baseline. Patrol Conductor Required: No Allergies Iodinated Contrast Media [IV DYE, IODINE CONTAINING CONTRAST ] Allergy (Severe, Verified 09/19/24 15:16) HIVE Penicillins [PENICILLINS] Allergy (Severe, Verified 09/19/24 15:16) HIVES Medication List - Last Reconciled 09/19/24 by Schuyler Cardona MD albuterol sulfate 90 mcg/actuation (Ventolin HFA) 2 puffs inhalation Q4-6H PRN allopurinol 100 mg PO DAILY 90 days atorvastatin (Lipitor) 80 mg PO DAILY cholecalciferol (vitamin D3) 50 mcg PO DAILY 90 days citalopram mg PO clotrimazole-betamethasone 1-0.05 % 1 appl topical BID 2 weeks dapagliflozin propanediol (Farxiga) 5 mg PO QAM diltiazem HCl ER 240 mg PO DAILY diphenoxylate-atropine 2.5-0.025 mg tabs PO ferrous sulfate (Feosol) 325 mg PO BID fluticasone furoate-vilanterol 200-25 mcg/dose (Breo Ellipta) 1 ea inhalation DAILY Incruse Ellipta 62.5 mcg/actuation (umeclidinium) 1 inh inhalation DAILY 30 days NS Januvia (sitagliptin phosphate) 100 mg PO DAILY 30 days NS lansoprazole (Prevacid) 30 mg PO DAILY@0630 magnesium 400 mg PO DAILY mecobalamin (vitamin B12) 5,000 mcg PO DAILY melatonin 10 mg PO BEDTIME PRN metoprolol succinate ER 75 mg PO DAILY mirtazapine 15 mg PO BEDTIME montelukast 10 mg PO DAILY nystatin 1 appl topical TID 10 days potassium chloride ER 50 mEq PO DAILY prothrombin time/INR test metr (Coaguchek XS Pro) As directed prothrombin time/INR test metr (Coaguchek XS Pro) As directed spironolactone 25 mg PO DAILY torsemide 20 mg PO .QOD trazodone 50 mg PO BEDTIME PRN warfarin Take 1 tablet daily or as instructed orally; Do you need a note to return to daycare/school/sports/work: No HPI HPI Shortness of breath: Details: Alice is 83 years old very pleasant female, who has been my patient on many many years. Currently she comes to see me for her chronic obstructive pulmonary disease. Which is being treated with Breo Ellipta and Incruse Ellipta, . Which she uses regularly Luckily has had no acute respiratory infection or exacerbation. Cough is minimal. She gets short of breath only if she walks fast or climbs stairs. She is not able to walk much outdoor because of arthritis. She uses cane to walk when she goes outdoors. [facility] Medical History Pneumonia Chronic diastolic heart failure CHF (congestive heart failure) Thrush, oral GI bleed Occult blood positive stool Microcytic anemia Valvular heart disease Exertional dyspnea Hemorrhagic cystitis Osteopenia Toxic multinodular goiter Obesity (BMI 30-39.9) Hearing impairment Peripheral vascular disease Obesity (BMI 30-39.9) Depression Anxiety Osteoarthritis of ankle and foot Vitamin D deficiency Allergic rhinitis Anemia GERD without esophagitis Gout Hypomagnesemia Multiple thyroid nodules Pure hypercholesterolemia Benign essential hypertension PSVT (paroxysmal supraventricular tachycardia) PAC (premature atrial contraction) COPD (chronic obstructive pulmonary disease) Chronic kidney disease (CKD), stage III (moderate) Type 2 diabetes mellitus with diabetic chronic kidney disease Sciatica of right side Surgical History History of colonoscopy History of angioplasty of peripheral vessel (~08/13/20) History of biopsy History of neck surgery History of cataract surgery History of bladder surgery History of tonsillectomy and adenoidectomy History of appendectomy History of hysterectomy Family History Father Stroke CVD (cardiovascular disease) Mother CVD (cardiovascular disease) Hypertension CAD (coronary artery disease) Other Mental health disorder Social History Household Members: None Housing: Condominium Do you presently have visiting nurse or other home services: Yes (telephone instrument supervisor once per week- [facility]) Alcohol intake: current Alcohol intake frequency: holidays/special occasions only Alcohol type: beer and hard liquor Patient Tobacco Use Status: Former Tobacco user Tobacco use type: Cigarette Cigarette Packs Per Day: 2 Cigarettes Per Day: 40.0 Years Smoked: 40 e-Cigarette/Vaping Use: Never Used Second Hand Smoke Exposure: Yes service: No Current occupational status: retired Cognitive needs: Yes (cane) Hearing needs: Yes Vision needs: Yes Review of Systems Const All systems reviewed & are unremarkable except as noted in HPI and below Eyes Reports no additional complaints ENT Reports nasal congestion (Mostly controlled with use of med) Card Denies chest pain, Denies leg edema and Reports dyspnea on exertion (Her shortness of breath on activity is much increase than before) Resp Denies cough, Reports dyspnea on exertion (Her shortness of breath on activity is much increase than before) and Denies wheezing Reports no additional complaints Musc Reports back pain (Mild) and Reports arthralgias (Mild in multiple joints) Skin/Breast Reports system reviewed and no additional complaints, except as documented Neuro Reports no additional complaints Psych Reports anxiety Aller/Immun Denies wheezing Physical Exam Vital Signs: Last Vital Signs Pulse 54 09/19/24 14:27 BP 120/78 09/19/24 14:27 Pulse Ox 93 09/19/24 14:27 Oxygen Delivery Method Room Air 09/19/24 14:27 BMI result Body Mass Index 33.7 Const General: comfortable, no acute distress, alert and awake Orientation/consciousness: patient oriented x3 HEENT Head: Yes normal to inspection General nose exam: No nasal polyps present and No nasal discharge present Face and sinus: Yes sinuses nontender Mouth: oropharynx abnormals (She has erythema of the oral mucosa and white spots over the soft palate ) Throat: Yes posterior oropharynx normal Eyes General: appearance normal, both eyes and all related structures Neck Neck: Yes normal visual inspection, Yes no lymphadenopathy, Yes trachea midline and Yes no JVD Thyroid: Thyroid normal Chest Chest palpation & inspection: normal inspection of the chest, normal palpation of entire chest wall and no tenderness Resp Other: Percussion note is resonant. Breath sounds are equal on both sides, slightly distant. No wheezes rhonchi or crepitations are heard. Cardio Palpation: normal PMI Rate: regular rate Rhythm: regular rhythm Heart sounds: no gallops and Murmur heart sound present (Loud systolic murmur at the aortic area as well as over left sternal border) GI Palpation (GI): Soft to palpation, nontender, No hepatosplenomegaly present and no masses Auscultation: normal bowel sounds Back/Spine/Pelvis Thoracic/Lumbar Spine: thoracic and lumbar spine normal to inspection and thoraco-lumbar ROM limited Skin General skin exam: no rashes or lesions noted Neuro General: patient oriented x3 and no focal motor deficits Cranial nerves: Yes CN's II-XII intact bilaterally Extrem General: Yes normal to inspection, Yes no clubbing, cyanosis or edema and Yes no calf tenderness Psych Appearance: grossly normal and well kempt Speech and movement: Normal speech and movement present Assessment & Plan Assessment & Plan (1) COPD (chronic obstructive pulmonary disease): Comment: SHE HAS MODERATELY SEVERE ASTHMA/COPD. WITH THE CURRENT COMBINATION SHE IS FEELING BETTER. SHE HAS NOT REQUIRED TO USE RESCUE INHALER. Code(s): J44.9 - Chronic obstructive pulmonary disease, unspecified Category: Medical Qualifiers: COPD type: unspecified COPD Qualified Code(s): J44.9 - Chronic obstructive pulmonary disease, unspecified Plan: Continue to use Breo 200-251 inhalation daily and Incruse Ellipta 1 inhalation daily. Albuterol HFA 2 puffs Q 6 hours only p.r.n. (2) Shortness of breath: Comment: DYSPNEA ON EXERTION IS DUE TO COMBINATION OF, AORTIC STENOSIS, MILD CONGESTIVE HEART FAILURE, COPD, AND GENERAL DECONDITIONING. WITH THE CURRENT RESPIRATORY MEDS. IT IS IMPROVED and stable. Code(s): R06.02 - Shortness of breath Category: Medical Plan: CONTINUE THE PRESENT MEDICAL REGIMEN (3) Chronic diastolic heart failure: Comment: SHE IS BEING FOLLOWED BY CARDIOLOGY REGULARLY, AND BEING TREATED FOR CHRONIC DIASTOLIC CONGESTIVE HEART FAILURE. HER CARDIAC STATUS IS ALSO REMAINING STABLE IN THE LAST 6 MONTHS. Code(s): I50.32 - Chronic diastolic (congestive) heart failure Category: Medical Plan: ADVISED TO CONTINUE REGULAR FOLLOW-UP WITH CARDIOLOGY. Coding Level of Care Code Est Pt Level 3 (96579) Diagnoses Chronic obstructive pulmonary disease, unspecified COPD type J44.9 COPD type: unspecified COPD Shortness of breath R06.02 Chronic diastolic heart failure I50.32
--- OUTSIDE RECORDS SUMMARY | 2024-09-19 15:37 | XMS_ITS | Patient Health Record ---
Author Organization [facility] Address [address] [place] [address] Care Team Providers Care Fountain Dispenser Name Role Phone Donal BELTRÁN, [place] Primary Care Provider Freeman Lindo Unavailable [phone] Allergies Allergen (clinical drug ingredient) Drug/Non Drug [...] Problem Status W/U Status Risk Notes Problem 56326908 Type 2 diabetes mellitus with diabetic polyneuropathy (E11.42) Active confirmed Problem Bilateral atherosclerosis of arteries of lower limbs (disorder) (20923097941217544 ) Unspecified atherosclerosis of prairie band arteries of extremities, bilateral legs (I70.203) Active confirmed Problem Acquired hammer toe of left foot (8359700295670961) Other hammer toe(s) (acquired), left foot (M20.42) Active confirmed Problem Polyneuropathy due to type 2 diabetes mellitus (083497776) Type 2 diabetes mellitus with diabetic polyneuropathy (E11.42) Active confirmed Problem Polyneuropathy due to diabetes mellitus type I (449614884) Type 1 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) Active confirmed Plan Of Treatment Pending Test Test Name Order Date X ray : Foot, left 2V 09/13/2014 X ray : Foot, left 2V 08/30/2014 X ray : Foot, left 2V 08/22/2014 X ray : Foot, left 2V 08/02/2014 X ray : Foot, right 2V 10/10/2014 *Uric Acid, Serum 10/10/2014 *Sedimentation Rate-Westergren 5 31208-NKSKJOZ NAIL, 1-5 09/13/2014 27264-PIRK SKIN LESIONS, 2 TO 4 07/23/19 21 74714-MXJJ SKIN LESIONS, 2 TO 4 10/22/19 21 13173-RKFH SKIN LESIONS, 2 TO 4 01/14/20 21 10563-MUPY SKIN LESIONS, 2 TO 4 04/23/20 21 46500-QDCV SKIN LESIONS, 2 TO 4 08/07/19 22 17749, B0608-WXOSH/INJECT, JOINT/BURSA 0 10/24/2015 42748, J0702- Neuroma/Injection 05/31/19 15 85922, J0702- Neuroma/Injection 10/26/19 15 Insurance Providers Payer Name Payer Address Payer Phone Subscriber Number Group Number Insured Name Patient Relationship to Insured Coverage Start Date Coverage End Date Medicare [employer] [address] [place] [address] [id number] Alice Martinez Self - patient is the insured [facility] [address] [place] [address] [id number] Alice Martinez Self - patient is [...] legs Guille 12/10/2020 Hospitalization History Reason Date(Month/Year) [facility]- Bunion surgery left foot 08/16/14 [facility] vascular sx 08/14/20-08/21/20
--- OUTSIDE RECORDS SUMMARY | 2024-09-19 15:37 | XMS_ITS ---
Author Organization [facility] Address [address] [place] [address] Care Team Providers Care Skilled Labor Name Role Phone Donal BELTRÁN, [place] Primary Care Provider UnaSteven Edwards [phone] REASON FOR VISIT stool specimen rejected Encounters Encounter Location Date Provider Diagnosis [facility] [address] [place] [address] 12/15/2023 Steven Haji Plan Of Treatment Next Appt Details Provider Name:Steven Haji , 03/07/2025 01:00:00 PM, [address], [address], [place], [address], Progress Notes * SUKHDEEP CARTER ADOB: 0 (83 yo F)Acc No.[id number]:12/15/2023 Patient:?SUKHDEEP CARTER :1940???Age:83 Y???Sex:Female Address:[address] [place] [address] [address], [place] [address] * true * Date:? Generated for Printi jayleen/Fabienne/eTransmitting on:?09/19/2024 03:37 PM EDT
--- OUTSIDE RECORDS SUMMARY | 2024-09-19 15:38 | XMS_ITS | Patient Health Record ---
Author Organization [facility] [place] Address [address] [place] [address] Care Team Providers Care Hadoop Java Developer Name Role Phone Donal BELTRÁN, [place] Primary Care Provider Steven Irving [phone] Allergies Allergen (clinical drug ingredient) Drug/Non Drug Allergy documented on EMR Reaction Allergy Type Onset Date Status Penicillin Unknown Drug Allergy Active contrast dye (uncoded) Unknown Allergy Active Results Component Value Reference Range Notes Leukocytes Stool Qualitative Reviewed date:12/15/2023 11:09:11 PM Interpretation: Performing Lab:[facility], [address] [place] [phone] Notes/Report: Leukocytes Stool Qualitative NEGATIVE NEGATIVE Pancreatic Elastase-1 Reviewed date:01/01/2024 10:04:49 PM Interpretation: Performing Lab:[facility], [address] [place] [phone] Notes/Report: Pancreatic Elastase-1 123 Adult and Pediatric Reference Ranges for Pancreatic Elastase-1: Normal: >200 mcg/g Moderate Pancreatic Insufficiency: 100-200 mcg/g Severe Pancreatic Insufficiency: <100 mcg/g Elastase-1 (E-1) assay results are expressed in mcg/g, which represent mcg E1/g feces. It is not necessary to interrupt enzyme substitution therapy. THIS TEST WAS PERFORMED AT: [facility] [address] [place] [address] BRENDON FOSTER MD,PHD,LILIANA Fecal Fat Qualitative Reviewed date:12/25/2023 01:02:36 AM Interpretation: Performing Lab:[facility], [address] [place] [address] Notes/Report: Fecal Fat Qualitative Normal Normal THIS TEST WAS PERFORMED AT: [facility] [address] [place], [place] JANNY BOCANEGRA MD,PHD Calprotectin, Fecal Reviewed date:12/25/2023 01:02:53 AM Interpretation: Performing Lab:[facility], [address] [place] [phone] Notes/Report: Calprotectin, Fecal 126 Reference Range: <50 [...] borderline values. THIS TEST WAS PERFORMED AT: [facility] [address] [place] [address] BRENDON FOSTER MD,PHD,LILIANA Ova and Parasite Reviewed date:12/29/2023 06:45:37 PM Interpretation: Performing Lab:[address] [address] Notes/Report: Ova and Parasite SEE NOTE OVA AND PARASITES, CONC AND PERM SMEAR Micro Number: [id number] Test Status: Final Specimen Source: Stool Specimen [...] infection. For additional information, please refer to https://education.[employer]/faq/FAQ 203 (This link is being provided for informational/ educational purposes only.) THIS TEST WAS PERFORMED AT: [facility] [address] [place] [address] SUGEY QUEVEDO MD CDiff Gene PCR Reviewed date:12/15/2023 11:09:17 PM Interpretation: Performing Lab:[address] [address] Notes/Report: CDiff Gene PCR NEGATIVE Negative If C. difficile strongly suspected despite one negative test, a second test may be sent vs. empiric treatment for C. difficile infection. GI PANEL Reviewed date:01/01/2024 10:03:38 PM Interpretation: Performing Lab:[facility], [address] [place] [address] Notes/Report: Campylobacter Not Detected Not Detect. Plesiomonas [...] PANEL Reviewed date:04/25/2024 09:24:57 PM Interpretation: Performing Lab:[facility], [address] [place] [phone] Notes/Report: Campylobacter Not Detected Not Detect. Plesiomonas [...] reviewed by provider) Interpretation: Performing Lab: Notes/Report: [address] [address] [address] Scan Report Signed Patient: Alice Carter MR#: [id number] 89 : 1940 Acct:[id number] Age/Sex: 83 / F ADM Date: 06/02/24 Loc: HO.CT Attending Dr: Steven Haji MD Ordering Physician: Steven Haji MD Date of Service: 06/02/24 Procedure(s): CT abdomen pelvis wo IV con Accession Number(s): [id number] cc: Jamel Mansfield MD; Steven Haji MD Report Number: [id number]: Total DLP = 756.00 mGy-cm EXAMINATION: CT [...] MD Signed By: <Electronically signed by Steven Casye MD in OV> 06/05/24 0842 DD/ 1530 TD/TT: 06/02/24 0548 Operating Room Manager: [address] [address] [address] Scan Report Signed Patient: Clemente Carter MR#: [id number] 89 : 1940 Acct:[id number] Age/Sex: 83 / F ADM Date: 06/02/24 Loc: HO.CT Attending Dr: Steven Haji MD Ordering Physician: Steven Haji MD Date of Service: 06/02/24 Procedure(s): CT abdomen pelvis wo IV con Accession Number(s): [id number] cc: Jamel Mansfield MD; Steven Haji MD Report Number: [id number]: Total DLP = 756.00 mGy-cm EXAMINATION: CT [...] by: Steven Casey MD 06/05/2024 08:42 AM [facility] Dictated By: Steven Casey MD Signed By: <Electronically signed by Steven Casey MD in OV> 06/05/24 0842 DD/ 1530 TD/TT: 06/02/24 1738 Operating Room Manager: Reason For Referral No Information Medications Medication [...] Status W/U Status Risk Notes Problem Diarrhea (05846177) Diarrhea, unspecified (R19.7) Active confirmed Problem 990976088 Gastroesophageal reflux disease, esophagitis presence not specified (K21.9) Active confirmed Problem 12090779 Heme + stool (R19.5) Active confirmed Problem Anemia (701958489) Anemia (D64.9) Active confirmed Problem 804586011 Iron deficiency anemia due to chronic blood loss (D50.0) Active confirmed Problem 724364174 Microcytic anemi a (D50.9) Active confirmed Problem 632379109 Angiodysplasia o f colon (K55.20) Active confirmed Problem 27929551 Iron deficiency anemia, unspecified iron deficiency anemia type (D50.9) Active confirmed Problem 12831927 Diarrhea, unspecified type (R19.7) Active confirmed Problem Chronic diarrhea (911922292) Chronic diarrhea (K52.9) Active confirmed Problem 99432963 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) Active confirmed Problem Pancreatic insufficiency (56792397) Pancreatic insufficiency (K86.89) Active confirmed Problem Incontinence of feces (98316191) Fecal soiling due to fecal incontinence (R15.9) Active confirmed Vital Signs Temperature 95.5 degrees Fahrenheit 03/08/2024 Blood pressure diastolic 72 mm Hg 03/08/2024 Height 62.5 in 03/08/2024 Blood pressure systolic 118 mm Hg 03/08/2024 Weight 189 lb 6 oz lbs 03/08/2024 BMI 34.08 kg/m2 03/08/2024 Encounters Encounter Location Date Provider Diagnosis [facility] [address] [place] [address] 03/08/2024 Steven Haji Gastroesophageal ref lux disease, esophagitis presence not specified K21.9 ; Iron deficiency anemia, unspecified iron deficiency anemia type D50.9 ; Chronic diarrhea K52.9 and Pancreatic insufficiency K86.89 [facility] [address] [address] 11/30/2023 Steven Haji Diarrhea, unspecifie d R19.7 [facility] [address] [place] [address] 12/06/2023 Steven Haji Chronic diarrhea K52 .9 [facility] [address] [place] [address] 12/15/2023 Steven Haji [facility] [address] [address] 03/19/2024 Steven Haji Assessments Encounter Date Diagnosis [...] Valdez Raissa , 03/07/2025 01:00:00 PM, [address] [facility], [address], [place], [address], Insurance Providers Payer Name Payer Address Payer Phone Subscriber Number Group Number Insured Name Patient Relationship to Insured Coverage Start Date Coverage End Date MEDICARE OF [place] [address] [facility] [place] [address] [id number] ALICE CRATER Self - patient is the insured [facility] [address] [place] [address] [id number] ALICE CARTER Self - patient is the insured Medical (General) History Medical History History ICD Code 10/25/2009 Colonoscopy--neg except for h yperplastic polyps--no IBD Tubular adenomas removed in 2002 GERD-EGD in 1997--HH, but ot herwise negative; EGD 05/2014 small HH, no esophagitis, small area of Aguilera's--no dysplasia Depression Hyperlipidemia NIDDM COPD Hypertension Denies NH,CVA,renal disease Microcytic anemia in 2015--h emoglobin 10.8 [...] stenosis. She is being followed by a contracts specialist Hospitalized 01/2022 for recu rrent anemia--Hgb 7.7 [...] as described by the patient-Dr. Siddiqi at [facility] 08/14/2020 and 11/2020 Hospitalization History Reason Date(Month/Year) Hospitalized for 2 weeks due to pneumonia, CHF, and Afib, and then rehab for 2 weeks. Spring 2022
--- OUTSIDE RECORDS SUMMARY | 2024-09-19 15:38 | XMS_ITS | Clinical Summary ---
Author Organization [facility] Address [address] [place] [address] Care Team Providers Care Trestleman Name Role Phone Jamel Mansfield MD Primary Care Provider [phone] Social History Tobacco Use Types Packs/Day Years [...] age to complete this topic Insurance Medicare [facility] Care Teams Trestleman Relationship Specialty Start Date End Date Jamel Mansfield MD [address] [place] [address] [address] [place] [address] PCP - General Internal Medicine 10/08/22
--- OUTSIDE RECORDS SUMMARY | 2024-09-19 15:38 | XMS_ITS ---
Author Organization [facility] Address [address] [place] [address] Care Team Providers Care Band Lining Bander Name Role Phone Donal BELTRÁN, [place] Primary Care Provider Steven Irving Unavailable [phone] Allergies Allergen (clinical drug ingredient) Drug/Non Drug [...] W/U Status Risk Notes Problem Pancreatic insufficiency (66618835) Pancreatic insufficiency (K86.89) Active confirmed Vital Signs Temperature 95.5 degrees Fahrenheit 03/08/20 24 Blood pressure systolic 118 mm Hg 03/08/20 24 Blood pressure diastolic 72 mm Hg 024 Height 62.5 in 03/08/2024 Weight 189 lb 6 oz lbs 03/08/2024 BMI 34.08 kg/m2 03/08/2024 Encounters Encounter Location Date Provider Diagnosis [facility] [address] [place] [address] 03/08/2024 Steven Haji Gastroesophageal ref lux disease, [...] Provider Name:Steven Haji , 03/07/2025 01:00:00 PM, [address] [place] [address], [address], [place], [address], Progress Notes * ALICE CARTER ADOB: 0 (83 yo F)Acc No.[id number]:03/08/2024 Progress Notes Patient:?ALICE CARTER A Provider:?Steven Haji MD :1940???Age:83 Y???Sex:Female D ate:03/08/2024 Address:[address] [place], [place] [address] Pcp:Jamel Mansfield MD Subjective: * Chief Complaints: [...] back to at least 2019 in the [facility] system. * ROS:?General/Constitutional:?Change in appetite?denies.?Chills?denies.?Fatigue?admits, in relation [...] as described by the patient-Dr. Siddiqi at [facility] 08/14/2020 and 11/2020 * Hospitalization/Major Diagno stic [...] EST > I faxed this order to [facility] central scheduling and I called their and I spoke with Essence and she said that their is no fasting for this Ct scan but the pt has to arrive 2 hrs early for the oral contrast, the Ct scan is on WednesdayApr 28 at 2:45pm and the pt is to arrive for 12:45pm to the [facility] radiology dept to drink the prep. I mailed this order to the pt as well. Thanks * * Procedure Codes:?1036F TOBAC CO [id number] BP SCR NOT PRFRM REC REASON NOS [...] MD Date:? 024 Generated for Britton clemens/Fabienne/Thomas on:?09/19/2024 03:37 PM EDT History and Physical Notes * [...] back to at least 2019 in the [facility] system. Examination Category Sub-Category Detail Notes Category [...]
--- OUTSIDE RECORDS SUMMARY | 2024-09-19 15:38 | XMS_ITS ---
Author Organization [facility] Address [address] [place] [address] Care Team Providers Care Liaison Engineer Name Role Phone Donal BELTRÁN, [place] Primary Care Provider UnaSteven Edwards [phone] Encounters Encounter Location Date Provider Diagnosis [facility] [address] [place] [address] 03/19/2024 Steven Haji Plan Of Treatment Next Appt Details Provider Name:Steven Haji , 03/07/2025 01:00:00 PM, [address], [address], [place], [address], Progress Notes * SUKHDEEP CARTER ADOB: 0 (83 yo F)Acc No.[id number]:03/19/2024 Patient:?SUKHDEEP CARTER :1940???Age:83 Y???Sex:Female Address:[address] [place] [address] [address] [place] [address] Subjective: * Chief Complaints: * ??? * Medical History:? * Surgical History:? * Hospitalization/Major Diagno stic Procedure:? * Medications:? Objective: Assessment: Plan: * Treatment: * Procedure Codes:? * true * Date:? Generated for Reni jayleen/Famonicag/eTransmitting on:?09/19/2024 03:38 PM EDT
== END 2024-09-19 14:44 | disposition home or self-care (01) ==
LOC: HO.HPS 14:18
PROVIDERS: PCP Internal Medicine; Visit Provider Internal Medicine
DX: J44.9 Chronic obstructive pulmonary disease, unspecified (principal); R06.02 Shortness of breath; I50.32 Chronic diastolic (congestive) heart failure
CPT/HCPCS: 99213

== ENCOUNTER → 2024-09-19 14:16 | Outpatient (BNVA) | payer MEDICARE, OTHER, SELFPAY | PROVIDERS: PCP Internal Medicine; Visit Provider Internal Medicine | DX: J44.9 Chronic obstructive pulmonary disease, unspecified (principal); I50.32 Chronic diastolic (congestive) heart failure; R06.02 Shortness of breath | CPT/HCPCS: 99212 ==

== ENCOUNTER 2024-09-27 12:43 | Outpatient (AMB) | payer MEDICARE, OTHER, SELFPAY ==
--- NOTE | 2024-09-27 12:46 | A.OFFPC_ITS ---
Vital Signs 09/27/24 12:47 Height 5 ft 2 in Weight 183 lb 6 oz BMI 33.5 BP 122/76 Blood Pressure Location Lt brachial Position Sitting Pulse 50 Pulse Source Pulse Oximeter Pulse Oximetry (%) 93 Oxygen Delivery Method Room Air Intake Visit Reasons: 3mth f/u Interpretive Naturalist Required: No Accompanied by: Self / Same As Patient Allergies Iodinated Contrast Media [IV DYE, IODINE CONTAINING CONTRAST ] Allergy (Severe, Verified 09/27/24 13:15) HIVE Penicillins [PENICILLINS] Allergy (Severe, Verified 09/27/24 13:15) HIVES Medication List - Last Reconciled 09/27/24 by Jamel Mansfield MD albuterol sulfate 90 mcg/actuation (Ventolin HFA) 2 puffs inhalation Q4-6H PRN allopurinol 100 mg PO DAILY 90 days atorvastatin (Lipitor) 80 mg PO DAILY cholecalciferol (vitamin D3) 50 mcg PO DAILY 90 days citalopram 20 mg PO clotrimazole-betamethasone 1-0.05 % 1 appl topical BID 2 weeks dapagliflozin propanediol (Farxiga) 5 mg PO QAM diltiazem HCl ER 240 mg PO DAILY diphenoxylate-atropine 2.5-0.025 mg tabs PO PRN ferrous sulfate (Feosol) 325 mg PO BID fluticasone furoate-vilanterol 200-25 mcg/dose (Breo Ellipta) 1 ea inhalation DAILY Incruse Ellipta 62.5 mcg/actuation (umeclidinium) 1 inh inhalation DAILY 30 days NS Januvia (sitagliptin phosphate) 100 mg PO DAILY 30 days NS lansoprazole (Prevacid) 30 mg PO DAILY@0630 mecobalamin (vitamin B12) 5,000 mcg PO DAILY melatonin 10 mg PO BEDTIME PRN metoprolol succinate ER 75 mg PO DAILY mirtazapine 15 mg PO BEDTIME montelukast 10 mg PO DAILY nystatin 1 appl topical TID 10 days potassium chloride ER 50 mEq PO DAILY prothrombin time/INR test metr (Coaguchek XS Pro) As directed prothrombin time/INR test metr (Coaguchek XS Pro) As directed spironolactone 25 mg PO DAILY torsemide 20 mg PO .QOD trazodone 50 mg PO BEDTIME warfarin Take 1 tablet daily or as instructed orally; Tobacco use date assessed: 09/27/24 Fall risk assessment: 1 Fall in past year Last assessed Fall Risk: 09/27/24 Dental Screening Dental Screen Date: 09/27/24 Did you have a dental visit in the last 12 months?: Yes Did you have a dental problem in the last 6 months where you did not have access to dental care?: No Was dental information given to patient?: Patient has dentist HPI 3mth f/u HPI Details Patient comes in today for her follow up visit States that she feels okay She denies any headaches or dizziness Denies any chest pains, no increased SOB No nausea/vomiting, no abdominal pain No change in bowel habits noted - still has occasional diarrhea at times She had her follow up labs done last week - to discuss her results [facility] Medical History Pneumonia Chronic diastolic heart failure CHF (congestive heart failure) Thrush, oral GI bleed Occult blood positive stool Microcytic anemia Valvular heart disease Exertional dyspnea Hemorrhagic cystitis Osteopenia Toxic multinodular goiter Obesity (BMI 30-39.9) Hearing impairment Peripheral vascular disease Obesity (BMI 30-39.9) Depression Anxiety Osteoarthritis of ankle and foot Vitamin D deficiency Allergic rhinitis Anemia GERD without esophagitis Gout Hypomagnesemia Multiple thyroid nodules Pure hypercholesterolemia Benign essential hypertension PSVT (paroxysmal supraventricular tachycardia) PAC (premature atrial contraction) COPD (chronic obstructive pulmonary disease) Chronic kidney disease (CKD), stage III (moderate) Type 2 diabetes mellitus with diabetic chronic kidney disease Sciatica of right side Surgical History History of colonoscopy History of angioplasty of peripheral vessel (~08/13/20) History of biopsy History of neck surgery History of cataract surgery History of bladder surgery History of tonsillectomy and adenoidectomy History of appendectomy History of hysterectomy Family History Father Stroke CVD (cardiovascular disease) Mother CVD (cardiovascular disease) Hypertension CAD (coronary artery disease) Other Mental health disorder Social History Household Members: None Housing: Condominium Do you presently have visiting nurse or other home services: Yes (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- [employer]) Alcohol intake: current Alcohol intake frequency: holidays/special occasions only Alcohol type: beer and hard liquor Patient Tobacco Use Status: Former Tobacco user Tobacco use type: Cigarette Cigarette Packs Per Day: 2 Cigarettes Per Day: 40.0 Years Smoked: 40 Packs Per Year: 80 Packs per year/per ci.00 e-Cigarette/Vaping Use: Never Used Second Hand Smoke Exposure: Yes service: No Current occupational status: retired Cognitive needs: Yes (cane) Hearing needs: Yes Vision needs: Yes Questionnaire PHQ-9 Over the last 2 weeks, how often have you been bothered by any of the following problems? 1. Little interest or pleasure in doing things: not at all 2. Feeling down, depressed, or hopeless: not at all 3. Trouble falling or staying asleep, or sleeping too much: several days 4. Feeling tired or having little energy: several days 5. Poor appetite or overeating: not at all 6. Feeling bad about yourself - or that you are a failure or have let yourself or your family down: not at all 7. Trouble concentrating on things, such as reading the newspaper or watching television: not at all 8. Moving or speaking so slowly that other people could have noticed. Or the opposite - being so fidgety or restless that you have been moving around a lot more than usual: not at all 9. Thoughts that you would be better off or of hurting yourself in some way: not at all Total score: 2 Depression Screening Interpretation: Negative Depression Screening Done: Yes 60784 - PHQ-9 Billing: Yes Source: Developed by Drs. Steven Hebert, Ursula Watson, Jared Joshi and colleagues, with an educational fredrick from [employer]. Thrive Questionnaire Date Thrive assessed: 09/27/24 I am a: Patient What is your living situation today?: I have a steady place to live Within the past 12 months, did the food you bought not last and you didn't have the money to get more?: Never true Within the past 12 months, did you worry whether your food would run out before you got money to buy more?: Never true Do you have trouble paying for medicines?: No Do you have trouble getting transportation to medical appointments?: No Do you have trouble paying your heating and electricity bill?: No Do you have trouble taking care of your child, family member or friend?: No Do you have trouble with day-to-day activities such as bathing, preparing meals, shopping, managing finances, etc.?: Yes Are you currently unemployed and looking for a job?: No Are you interested in more education?: No Please select the resources that you would like help with: None Currently or been in a relationship where the following occur: No concerns reported THRIVE Score: 0 AUDIT C Alcohol Use Questionnaire (AUDIT-C) 1. How often do you have a drink containing alcohol?: 2-4 times a month 2. How many drinks containing alcohol do you have on a typical day when you are drinking?: 1 or 2 3. How often do you have six or more drinks on one occasion?: Never Total Score: 2 Score Reviewed/Action Taken: Yes ABEL-7 AMB Questionnaire ABEL-7 Date ABEL - 7 assessed: 09/27/24 Feeling nervous, anxious, or on edge: 0 = Not at all Not being able to stop or control worryin = Not at all Worrying too much about different things: 0 = Not at all Trouble relaxin = Not at all Being so restless that it is hard to sit still: 0 = Not at all Becoming easily annoyed or irritable: 0 = Not at all Feeling afraid as if something awful might happen: 0 = Not at all Total ABEL-7 score (0-4 normal; 5-9 mild; 10-14 moderate; 15-21 severe): 0 Source: Developed by Drs. Steven Hebert, Ursula Watson, Jared Joshi and colleagues, with an educational fredrick from [employer]. Review of Systems Const Denies chills, Reports fatigue, Denies fever(s) and Denies headache(s) ENT Denies dysphagia, Denies dizziness, Denies otalgia, Denies headache(s), Denies neck pain, Denies odynophagia and Denies sore throat Card Denies chest pain, Reports claudication, Denies palpitations and Reports dyspnea on exertion (mild) Resp Denies chest congestion, Denies cough and Reports dyspnea on exertion (mild) GI Denies abdominal pain, Denies hematochezia, Reports constipation, Denies dysphagia, Denies heartburn, Denies diarrhea, Reports loose stools (occasionally), Denies nausea, Denies odynophagia and Denies vomiting Denies difficulty voiding, Denies nocturia, Denies dysuria and Denies urinary urgency Musc Reports back pain (on and off; better now than a couple of months ago), Reports arthralgias (right hip, on and off; increased in R shoulder) and Denies neck pain Skin/Breast Denies rash Neuro Denies dizziness and Denies headache(s) Endo Reports fatigue and Denies palpitations Sean/Lymph Details: (+) recurrent pain/claudication over her left lower extremity Physical exam (Primary Care) Vital Signs: Last Vital Signs Pulse 50 09/27/24 12:47 BP 122/76 09/27/24 12:47 Pulse Ox 93 09/27/24 12:47 Oxygen Delivery Method Room Air 09/27/24 12:47 BMI result Body Mass Index 33.5 Tobacco/Smoking Status: Tobacco use Status Tobacco use date assessed 09/27/24 09/27/24 12:58 Patient Tobacco Use Status Former Tobacco user 09/27/24 12:58 Tobacco use type Cigarette 09/27/24 12:58 e-Cigarette/Vaping Use Never Used 09/27/24 12:58 PHQ-9: PHQ-9 Score PHQ-9: Total score 2 09/27/24 12:58 Depression Screening Interpretation: Negative Thrive Assessment: Date of Thrive Assessment Date Thrive assessed 09/27/24 09/27/24 12:58 Currently or been in a relationship where the following occur: No concerns reported Const General: no acute distress and alert HENMT Ears: TM's normal bilaterally and EAC's normal Throat: Yes posterior oropharynx normal and Yes tonsils normal (no TP congestion noted) Neck Neck: Yes supple and No lymphadenopathy Thyroid: Thyroid normal Resp Auscultation: clear to auscultation bilaterally, no rales and no wheezes Cardio Rate: bradycardic Rhythm: regular rhythm Heart sounds: Murmur heart sound present diastolic blowing and at the apex and systolic III/ and at the base GI Palpation (GI): Soft to palpation and nontender Auscultation: normal bowel sounds General: Yes no CVA tenderness Back/Spine/Pelvis Back: no CVA tenderness Thoracic/Lumbar Spine: lumbar spinal tenderness (mild) Skin Rashes: no rashes Extrem General: Yes no clubbing, cyanosis or edema Right upper extremity: shoulder/upper arm Details: tenderness Location: of the A-C joint (and behind the right shoulder ) Results Reviewed Results Reviewed: Laboratory Tests 09/18/24 09/18/24 11:02 11:10 WBC 8.2 Hgb 13.7 Hct 42.5 Plt Count 282 Sodium 138 Potassium 4.3 Creatinine 1.41 H Estimated GFR 36 Fasting Glucose 140 H Hemoglobin A1c % 6.7 H Calcium 9.7 AST 20 ALT 21 Triglycerides 155 H Cholesterol 153 LDL Cholesterol, Calc 93 HDL Cholesterol 29 L Vitamin B12 > 2000 H 25-OH Vitamin D Total 42.6 TSH 0.24 L Free T4 1.13 Ur Specific [place] 1.020 Urine Protein Trace Urine Glucose (UA) >=1000 H Urine Blood Negative Urine Nitrite Negative Ur Leukocyte Esterase Small (1+) H Microalb/Creat Ratio 17.7 Coding Level of Care Code Est Pt Level 4 (80608) Complex EM visit Add On G2211 Diagnoses Pure hypercholesterolemia E78.00 Type 2 diabetes mellitus with stage 3b chronic kidney disease, without long-term current use of insulin E11.22; N18.32 Diabetes mellitus residential insulin use: without residential use Chronic kidney disease stage: stage 3 (moderate) Chronic kidney disease stage 3 subtype: stage 3b (GFR 30-44) Stage 3a chronic kidney disease N18.31 Chronic kidney disease stage 3 subtype: stage 3a (GFR 45-59) Chronic diastolic heart failure I50.32 Valvular heart disease I38 Benign essential hypertension I10 Chronic obstructive pulmonary disease, unspecified COPD type J44.9 COPD type: unspecified COPD PSVT (paroxysmal supraventricular tachycardia) I47.1 PAC (premature atrial contraction) I49.1 Peripheral vascular disease I73.9 Toxic multinodular goiter E05.20 Anemia, unspecified type D64.9 Anemia type: unspecified type Gout, unspecified cause, unspecified chronicity, unspecified site M10.9 Gout site: unspecified site Gout etiology: unspecified cause Chronicity: unspecified Hypomagnesemia E83.42 GERD without esophagitis K21.9 Vitamin D deficiency E55.9 Chronic right-sided low back pain with right-sided sciatica M54.41; G89.29 Back pain laterality: right Right shoulder pain, unspecified chronicity M25.511 Chronicity: unspecified Right elbow pain M25.521 Anxiety F41.9 Episode of recurrent major depressive disorder, unspecified depression episode severity F33.9 Depression Type: major depressive disorder Major depression recurrence: recurrent Active/Remission status: currently active Major depression episode severity: unspecified Obesity (BMI 30-39.9) E66.9 Additional Codes PHQ-9 - 87849 - PHQ-9 Billing: Yes ([id number]) Assessment & Plan Assessment & Plan (1) Pure hypercholesterolemia: Code(s): E78.00 - Pure hypercholesterolemia, unspecified Category: Medical Plan: Results of her labs done last week reviewed and discussed with patient Reinforced low cholesterol diet Continue Atorvastatin 40 mg QD Will recheck her labs and fasting lipids in 3 months for follow up (2) Type 2 diabetes mellitus with diabetic chronic kidney disease: Code(s): E11.22 - Type 2 diabetes mellitus with diabetic chronic kidney disease Category: Medical Qualifiers: Diabetes mellitus residential insulin use: without residential use Chronic kidney disease stage: stage 3 (moderate) Chronic kidney disease stage 3 subt ype: stage 3b (GFR 30-44) Qualified Code(s): E11.22 - Type 2 diabetes mellitus with diabetic chronic kidney disease; N18.32 - Chronic kidney disease, stage 3b Plan: Her HgbA1c was at 6.7% on her labs done last week (was previously at 6.2% a few months ago) - goal is at least <7.0% Reinforced diabetic diet Continue Januvia 100 mg QD and Farxiga 5 mg Q AM She was taken off Glimepiride 1 mg QD last year as she was reportedly experiencing recurrent symptomatic low blood sugar readings She could not tolerate Metformin / Metformin ER due to diarrhea Will recheck her labs and HgbA1c in 3 months for follow up (3) Chronic kidney disease (CKD), stage III (moderate): Code(s): N18.30 - Chronic kidney disease, stage 3 unspecified Category: Medical Qualifiers: Chronic kidney disease stage 3 subtype: stage 3a (GFR 45-59) Qualified Code(s): N18.31 - Chronic kidney disease, stage 3a Plan: Stable She had abdominal CT done a few months ago that revealed a markedly atrophic right kidney so she technically likely has only 1 functioning kidney at this time She was taken off Valsartan when she reportedly developed some MARBELLA while admitted to the hospital last year She was also started on Farxiga a few months ago and her Metoprolol ER and Torsemide dosage were also lowered by cardiology recently - have advised patient that all these likely contributed to the improvement in her renal function recently Will continue to monitor her GFR and serum creatinine regularly (4) Chronic diastolic heart failure: Comment: SHE IS BEING FOLLOWED BY CARDIOLOGY REGULARLY, AND BEING TREATED FOR CHRONIC DIASTOLIC CONGESTIVE HEART FAILURE. HER CARDIAC STATUS IS ALSO REMAINING STABLE IN THE LAST 6 MONTHS. Code(s): I50.32 - Chronic diastolic (congestive) heart failure Category: Medical Plan: Continue Torsemide 20 mg QOD Reinforced fluid restriction Follow up with cardiology as scheduled (5) Valvular heart disease: Code(s): I38 - Endocarditis, valve unspecified Category: Medical Plan: Previous echocardiogram done on 01/14/2021 revealed (+) normal LV size and function, with hyperdynamic EF of >70%; left atrium is severely dilated, with moderate AR and moderate as well as moderate MR and severe MS and mild pulmonary hypertension - these changes appear to be worse compared to previous findings Repeat echocardiogram done on 07/17/2021 revealed findings that are mostly unchanged from 2020 but the gradient across the mitral valve is slightly less and PA pressures have improved and the gradient across the aortic valve is also slightly improved She reportedly had a normal cardiac cath done at [facility] back in August 2022 She has also been advised that she will be potentially requiring valve re placement or repair of her mitral and aortic valve - patient does not feel she is ready for either yet at this time Follow up with cardiology as scheduled - used to see Dr. Ajay Hannah but is now seeing Dr. Nance up at [facility] (6) Benign essential hypertension: Code(s): I10 - Essential (primary) hypertension Category: Medical Plan: Reinforced low-sodium diet - goal is systolic BP of at least 140 to 150 mm or less Continue Metoprolol ER 75 mg QD Her Valsartan 160 mg QD was discontinued while she was in the hospital last year due to MARBELLA (7) COPD (chronic obstructive pulmonary disease): Comment: SHE HAS MODERATELY SEVERE ASTHMA/COPD. WITH THE CURRENT COMBINATION SHE IS FEELING BETTER. SHE HAS NOT REQUIRED TO USE RESCUE INHALER. Code(s): J44.9 - Chronic obstructive pulmonary disease, unspecified Category: Medical Qualifiers: COPD type: unspecified COPD Qualified Code(s): J44.9 - Chronic obstructive pulmonary disease, unspecified Plan: Stable Continue Breo Ellipta 200-25 mcg 1 inhalation QD, Incruse Ellipta 62.5 mcg 1 inhalation QD and Albuterol HFA 108 mcg 2 puffs 4 times a day as needed Follow up with pulmonary as scheduled - sees Dr. Cardona (8) PSVT (paroxysmal supraventricular tachycardia): Code(s): I47.1 - Supraventricular tachycardia Category: Medical Plan: She is currently controlled on Diltiazem ER with no recurrence of her SVT for a while now Follow-up with cardiology as scheduled (9) PAC (premature atrial contraction): Code(s): I49.1 - Atrial premature depolarization Category: Medical Plan: This has been controlled adequately on Diltiazem so far - continue Diltiazem ER 240 mg QD Follow-up with cardiology as scheduled (10) Peripheral vascular disease: Comment: S/P angioplasty of left lower extremity in July 2020 Code(s): I73.9 - Peripheral vascular disease, unspecified Category: Medical Plan: S/P angioplasty although patient did not feel that her surgery helped a lot She was prevously on dual antiplatelet therapy with low dose Aspirin 81 mg QD and Clopidogrel 75 mg QD previously but is now just on Clopidogrel (Aspirin was discontinued due to GI bleed and profound anemia) Follow up with vascular surgery as scheduled (11) Toxic multinodular goiter: Code(s): E05.20 - Thyrotoxicosis with toxic multinodular goiter without thyrotoxic crisis or storm Category: Medical Plan: Her TFTs were again normal on her recent labs Follow-up with endocrinology as scheduled - FNA Bx done on 06/17/2017 came out benign Ultrasound done a couple of years ago came back unchanged and recommendation is to just continue with yearly ultrasound for continuing surveillance (12) Anemia: Code(s): D64.9 - Anemia, unspecified Category: Medical Qualifiers: Anemia type: unspecified type Qualified Code(s): D64.9 - Anemia, unspecified Plan: Her H/H have improved/corrected and have remained normal on her recent labs This was most likely due to GI bleeding related to her previous dual antiplatelet therapy and she required blood transfusion of 2 units of PRBC in January 2021 and 1 more unit in April 2021; also s/p IV iron in March 2021 Continue Ferrous Sulfate 325 mg BID Follow up with hematology as scheduled (13) Gout: Code(s): M10.9 - Gout, unspecified Category: Medical Qualifiers: Gout site: unspecified site Gout etiology: unspecified cause Chronicity: unspecified Qualified Code(s): M10.9 - Gout, unspecified Plan: Asymptomatic; her serum uric acid level was elevated at 9.3 when it was most recently checked in February 2024 Reinforced low purine diet Continue Colcrys 0.6 mg twice a day, Indomethacin 25 mg twice a day with food as needed (14) Hypomagnesemia: Code(s): E83.42 - Hypomagnesemia Category: Medical Plan: Corrected - will continue to monitor her serum magnesium level regularly (15) GERD without esophagitis: Code(s): K21.9 - Gastro-esophageal reflux disease without esophagitis Category: Medical Plan: Dietary restrictions reinforced Continue Lansoprazole 30 mg daily; may take some OTC Famotidine 20 mg PRN for symptomatic relief Follow-up with GI as scheduled (16) Vitamin D deficiency: Code(s): E55.9 - Vitamin D deficiency, unspecified Category: Medical Plan: Continue Vitamin D3 5000 units once a day (17) Chronic low back pain with right-sided sciatica: Code(s): M54.41 - Lumbago with sciatica, right side; G89.29 - Other chronic pain Category: Medical Qualifiers: Back pain laterality: right Qualified Code(s): M54.41 - Lumbago with sciatica, right side; G89.29 - Other chronic pain Plan: Lumbar spine x-rays done back in April 2022 revealed (+) multilevel lumbar spondylosis and facet arthritis, with no acute changes or fractures noted Reinforced activity and weight-lifting restrictions Due to her increasing low back pain and right lumbar radiculopathy, she was sent for repeat lumbar spine x-rays and also for SI joint x-rays for further evaluation a few months ago (March 2024), which revealed (+) no acute compression fracture, with a slight retrolisthesis L1-2 and anterolisthesis L4-5 not appreciably changed from previous imaging. There is also extensive degenerative disc space narrowing L5-S1 that appears to be slightly increased from previous Have advised patient to consider referral to pain management if her low back pain continues to progress (18) Right shoulder pain: Code(s): M25.511 - Pain in right shoulder Category: Medical Qualifiers: Chronicity: unspecified Qualified Code(s): M25.511 - Pain in right shoulder Plan: Suspect right shoulder bursitis and/or impingement syndrome X-rays of the right shoulder done back in March 2024 did reveal (+) degenerative changes as well as findings suggestive of calcific tendinitis Follow up with orthopedics as scheduled (19) Right elbow pain: Code(s): M25.521 - Pain in right elbow Category: Medical Plan: X-rays of the right elbow done back in March 2024 also revealed (+) degenerative changes in the elbow with no acute process Patient states that her elbow pain has actually subsided a lot lately and is not bothering her as much as it used to (20) Anxiety: Code(s): F41.9 - Anxiety disorder, unspecified Category: Medical Plan: States that her Citalopram is helping with her anxiety (21) Depression: Code(s): F32.9 - Major depressive disorder, single episode, unspecified Category: Medical Qualifiers: Depression Type: major depressive disorder Major depression recurrence: recurrent Active/Remission status: currently active Major depression episode severity: unspecified Qualified Code(s): F33.9 - Major depressive disorder, recurrent, unspecified Plan: Continue Citalopram 40 mg QD and Mirtazapine 15 mg Q HS Follow-up with Psychiatry as scheduled - is now seeing a nurse practitioner as her previous psychiatrist retired from active practice (22) Obesity (BMI 30-39.9): Code(s): E66.9 - Obesity, unspecified Category: Medical Plan: Reinforced diet; exercise and weight loss are unrealistic in this patient as she is currently experiencing a lot of physical and vascular symptoms and has multiple comorbidities that significantly limits her activity and exercise tolerance Plan Follow up in 3 months Orders: Orders Hemoglobin A1c 3 Months E11.9 - Type 2 diabetes mellitus without complications TSH reflex Free T4 3 Months E78.00 - Pure hypercholesterolemia, unspecified UA CC w/rflx Micro + Cult 3 Months R30.0 - Dysuria Complete Blood Count Auto Diff 3 Months D64.9 - Anemia, unspecified Comprehensive [place]. Panel Fast 3 Months E78.00 - Pure hypercholesterolemia, unspecified Lipid Panel 3 Months E78.00 - Pure hypercholesterolemia, unspecified Microalbumin, Random (w Creat) 3 Months E11.9 - Type 2 diabetes mellitus without complications Vitamin D 25-OH Total 3 Months E55.9 - Vitamin D deficiency, unspecified Vitamin B12 and Folate 3 Months E53.8 - Deficiency of other specified B group vitamins
[2024-09-27 12:47] VITALS: BP 122/76; PULSE 50; O2SAT 93; BMI 33.5
--- OUTSIDE RECORDS SUMMARY | 2024-09-27 13:04 | XMS_ITS ---
Author Organization [facility] Address [address] [place] [address] Care Team Providers Care Plastics Fabricator And Assembler Name Role Phone Donal BELTRÁN, [place] Primary Care Provider Steven Irving Unavailable [phone] Allergies Allergen (clinical drug ingredient) Drug/Non Drug [...] W/U Status Risk Notes Problem Pancreatic insufficiency (74757522) Pancreatic insufficiency (K86.89) Active confirmed Vital Signs Temperature 95.5 degrees Fahrenheit 03/08/20 24 Blood pressure systolic 118 mm Hg 03/08/20 24 Blood pressure diastolic 72 mm Hg 024 Height 62.5 in 03/08/2024 Weight 189 lb 6 oz lbs 03/08/2024 BMI 34.08 kg/m2 03/08/2024 Encounters Encounter Location Date Provider Diagnosis [facility] [address] [place] [address] 03/08/2024 Steven Haji Gastroesophageal ref lux disease, [...] Provider Name:Steven Haji , 03/07/2025 01:00:00 PM, [address] [place] [address], [address], [place], [address], Progress Notes * ALICE CARTER ADOB: 0 (83 yo F)Acc No.[id number]:03/08/2024 Progress Notes Patient:?ALICE CARTER A Provider:?Steven Haji MD :1940???Age:83 Y???Sex:Female D ate:03/08/2024 Address:[address] [place], [place] [id number] Pcp:Jamel Mansfield MD Subjective: * Chief Complaints: * ???Patient presents today fo r ANEMIA * HPI: ???incontinence:? I saw lAice in followup today in regard to her [...] back to at least 2019 in the [facility] system. * ROS:?General/Constitutional:?Change in appetite?denies.?Chills?denies.?Fatigue?admits, in relation [...] as described by the patient-Dr. Siddiqi at [facility] 08/14/2020 and 11/2020 * Hospitalization/Major Diagno [...] EST > I faxed this order to [facility] central scheduling and I called their and I spoke with Essence and she said that their is no fasting for this Ct scan but the pt has to arrive 2 hrs early for the oral contrast, the Ct scan is on WednesdayApr 28 at 2:45pm and the pt is to arrive for 12:45pm to the [facility] radiology dept to drink the prep. I mailed this order to the pt as well. Thanks * * Procedure Codes:?1036F TOBAC CO NON-[id number] BP SCR NOT PRFRM REC REASON NOS [...] MD Date:? 024 Generated for Britton clemens/Fabienne/Thomas on:?09/27/2024 01:04 PM EDT History and Physical Notes * HPI (History of Present Illness) Category Sub-Category Detail Notes Category Not es incontinence I saw Alice in followup today in regard to her previous anemia and ongoing issues with diarrhea. I last saw Alcie in August. Since that time she has [...] back to at least 2019 in the [facility] system. Examination Category Sub-Category Detail Notes Category [...]
--- OUTSIDE RECORDS SUMMARY | 2024-09-27 13:04 | XMS_ITS ---
Author Organization [facility] Address [address] [place] [address] Care Team Providers Care Marketing Research Coordinator Name Role Phone Donal BELTRÁN, [place] Primary Care Provider UnaSteven Edwards [phone] REASON FOR VISIT stool specimen rejected Encounters Encounter Location Date Provider Diagnosis [facility] [address] [place] [address] 12/15/2023 Steven Haji Plan Of Treatment Next Appt Details Provider Name:Steven Haji , 03/07/2025 01:00:00 PM, [address], [address], [place], [address], Progress Notes * SUKHDEEP CARTER ADOB: 0 (83 yo F)Acc No.[id number]:12/15/2023 Patient:?SUKHDEEP CARTER :1940???Age:83 Y???Sex:Female Address:[address] [place] [address] [address], [place] [address] * true * Date:? Generated for Printi jayleen/Fabienne/eTransmitting on:?09/27/2024 01:04 PM EDT
--- OUTSIDE RECORDS SUMMARY | 2024-09-27 13:04 | XMS_ITS | Patient Health Record ---
Author Organization [facility] Address [address] [place] [address] Care Team Providers Care Marine Service Manager Name Role Phone Donal BELTRÁN, [place] Primary Care Provider Freeman Lindo Unavailable [phone] Allergies Allergen (clinical drug ingredient) Drug/Non Drug [...] Problem Status W/U Status Risk Notes Problem 32979806 Type 2 diabetes mellitus with diabetic polyneuropathy (E11.42) Active confirmed Problem Bilateral atherosclerosis of arteries of lower limbs (disorder) (26985295271156845 ) Unspecified atherosclerosis of [place] arteries of extremities, bilateral legs (I70.203) Active confirmed Problem Acquired hammer toe of left foot (6352542068334667) Other hammer toe(s) (acquired), left foot (M20.42) Active confirmed Problem Polyneuropathy due to type 2 diabetes mellitus (816411183) Type 2 diabetes mellitus with diabetic polyneuropathy (E11.42) Active confirmed Problem Polyneuropathy due to diabetes mellitus type I (933902053) Type 1 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) Active confirmed Plan Of Treatment Pending Test Test Name Order Date X ray : Foot, left 2V 08/02/2014 X ray : Foot, left 2V 08/22/2014 X ray : Foot, left 2V 08/30/2014 X ray : Foot, left 2V 09/13/2014 X ray : Foot, right 2V 10/10/2014 *Uric Acid, Serum 10/10/2014 *Sedimentation Rate-Westergren 5 95004-LJXKCJZ NAIL, 1-5 09/13/2014 33556-XYEY SKIN LESIONS, 2 TO 4 07/23/19 21 97140-HSJD SKIN LESIONS, 2 TO 4 10/22/19 21 54503-LRGN SKIN LESIONS, 2 TO 4 01/14/20 21 62528-RHKT SKIN LESIONS, 2 TO 4 04/23/20 21 47170-EYXO SKIN LESIONS, 2 TO 4 08/07/19 22 15428, J0812-LDPRL/INJECT, JOINT/BURSA 0 10/24/2015 39584, J0702- Neuroma/Injection 05/31/19 15 74788, J0702- Neuroma/Injection 10/26/19 15 Insurance Providers Payer Name Payer Address Payer Phone Subscriber Number Group Number Insured Name Patient Relationship to Insured Coverage Start Date Coverage End Date Medicare National [employer] [address] [place] [address] [id number] Alice Martinez Self - patient is the insured [facility] [address] [place] [address] [id number] Alice Martinez Self - patient is [...] legs Guille 12/10/2020 Hospitalization History Reason Date(Month/Year) [facility]- Bunion surgery left foot 08/16/14 [facility] vascular sx 08/14/20-08/21/20
--- OUTSIDE RECORDS SUMMARY | 2024-09-27 13:05 | XMS_ITS | Patient Health Record ---
Author Organization [facility] Address [address] [place] [address] Care Team Providers Care Web Services Manager Name Role Phone Donal BELTRÁN, [place] Primary Care Provider Steven Irving [phone] Allergies Allergen (clinical drug ingredient) Drug/Non Drug Allergy documented on EMR Reaction Allergy Type Onset Date Status Penicillin Unknown Drug Allergy Active contrast dye (uncoded) Unknown Allergy Active Results Component Value Reference Range Notes Leukocytes Stool Qualitative Reviewed date:12/15/2023 11:09:11 PM Interpretation: Performing Lab:[facility], [address] [place] [address] Notes/Report: Leukocytes Stool Qualitative NEGATIVE NEGATIVE Pancreatic Elastase-1 Reviewed date:01/01/2024 10:04:49 PM Interpretation: Performing Lab:[facility], [address] [place] [address] Notes/Report: Pancreatic Elastase-1 123 Adult and Pediatric Reference Ranges for Pancreatic Elastase-1: Normal: >200 mcg/g Moderate Pancreatic Insufficiency: 100-200 mcg/g Severe Pancreatic Insufficiency: <100 mcg/g Elastase-1 (E-1) assay results are expressed in mcg/g, which represent mcg E1/g feces. It is not necessary to interrupt enzyme substitution therapy. THIS TEST WAS PERFORMED AT: [employer] [address] [place] [address] BRENDON FOSTER MD,PHD,LILIANA Fecal Fat Qualitative Reviewed date:12/25/2023 01:02:36 AM Interpretation: Performing Lab:[facility], [address] [place] [address] Notes/Report: Fecal Fat Qualitative Normal Normal THIS TEST WAS PERFORMED AT: [facility] [address] [place], [place] JANNY BOCANEGRA MD,PHD Calprotectin, Fecal Reviewed date:12/25/2023 01:02:53 AM Interpretation: Performing Lab:[facility], [address] [place] [address] Notes/Report: Calprotectin, Fecal 126 Reference Range: <50 [...] borderline values. THIS TEST WAS PERFORMED AT: [facility] [address] [place] [address] BRENDNO FOSTER MD,PHD,LILIANA Ova and Parasite Reviewed date:12/29/2023 06:45:37 PM Interpretation: Performing Lab:[address] [address] Notes/Report: Ova and Parasite SEE NOTE OVA AND PARASITES, CONC AND PERM SMEAR Micro Number: [id number] Test Status: Final Specimen Source: Stool Specimen [...] infection. For additional information, please refer to https://education.[employer]/faq/FAQ 203 (This link is being provided for informational/ educational purposes only.) THIS TEST WAS PERFORMED AT: [email or web address] [address] [place] [phone] SUGEY QUEVEDO MD CDiff Gene PCR Reviewed date:12/15/2023 11:09:17 PM Interpretation: Performing Lab:[address] [address] Notes/Report: CDiff Gene PCR NEGATIVE Negative If C. difficile strongly suspected despite one negative test, a second test may be sent vs. empiric treatment for C. difficile infection. GI PANEL Reviewed date:01/01/2024 10:03:38 PM Interpretation: Performing Lab:[facility], [address] [place] [address] Notes/Report: Campylobacter Not Detected Not Detect. Plesiomonas [...] PANEL Reviewed date:04/25/2024 09:24:57 PM Interpretation: Performing Lab:[facility], [address] [place] [address] Notes/Report: Campylobacter Not Detected Not Detect. Plesiomonas [...] reviewed by provider) Interpretation: Performing Lab: Notes/Report: [address] [address] [address] Scan Report Signed Patient: Alice Carter MR#: [id number] 89 : 1940 Acct:[id number] Age/Sex: 83 / F ADM Date: 06/02/24 Loc: HO.CT Attending Dr: Steven Haji MD Ordering Physician: Steven Haji MD Date of Service: 06/02/24 Procedure(s): CT abdomen pelvis wo IV con Accession Number(s): [id number] cc: Jamel Mansfield MD; Steven Haji MD Report Number: [id number]: Total DLP = 756.00 mGy-cm EXAMINATION: CT [...] OV> 06/05/24 0842 DD/ 1530 TD/TT: 06/02/24 7088 Conveyor Belt Repairer: [address] [address] [address] Scan Report Signed Patient: Clemente Carter MR#: [id number] 89 : 1940 Acct:[id number] Age/Sex: 83 / F ADM Date: 06/02/24 Loc: HO.CT Attending Dr: Steven Haji MD Ordering Physician: Steven Haji MD Date of Service: 06/02/24 Procedure(s): CT abdomen pelvis wo IV con Accession Number(s): [id number] cc: Jamel Mansfield MD; Steven Haji MD Report Number: [id number]: Total DLP = 756.00 mGy-cm EXAMINATION: CT [...] by: Steven Casey MD 06/05/2024 08:42 AM [facility] Dictated By: Steven Casey MD Signed By: <Electronically signed by Steven Casey MD in OV> 06/05/24 0842 DD/ 1530 TD/TT: 06/02/24 1738 Conveyor Belt Repairer: Reason For Referral No Information Medications Medication [...] Status W/U Status Risk Notes Problem Diarrhea (33443771) Diarrhea, unspecified (R19.7) Active confirmed Problem 395616052 Gastroesophageal reflux disease, esophagitis presence not specified (K21.9) Active confirmed Problem 69120830 Heme + stool (R19.5) Active confirmed Problem Anemia (686266712) Anemia (D64.9) Active confirmed Problem 491532276 Iron deficiency anemia due to chronic blood loss (D50.0) Active confirmed Problem 172630921 Microcytic anemi a (D50.9) Active confirmed Problem 362489813 Angiodysplasia o f colon (K55.20) Active confirmed Problem 84485623 Iron deficiency anemia, unspecified iron deficiency anemia type (D50.9) Active confirmed Problem 13201767 Diarrhea, unspecified type (R19.7) Active confirmed Problem Chronic diarrhea (549356795) Chronic diarrhea (K52.9) Active confirmed Problem 88797342 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) Active confirmed Problem Pancreatic insufficiency (13868961) Pancreatic insufficiency (K86.89) Active confirmed Problem Incontinence of feces (56819851) Fecal soiling due to fecal incontinence (R15.9) Active confirmed Vital Signs Temperature 95.5 degrees Fahrenheit 03/08/2024 Blood pressure diastolic 72 mm Hg 03/08/2024 Height 62.5 in 03/08/2024 Blood pressure systolic 118 mm Hg 03/08/2024 Weight 189 lb 6 oz lbs 03/08/2024 BMI 34.08 kg/m2 03/08/2024 Encounters Encounter Location Date Provider Diagnosis [facility] [address] [place] [address] 03/08/2024 Steven Haji Gastroesophageal ref lux disease, esophagitis presence not specified K21.9 ; Iron deficiency anemia, unspecified iron deficiency anemia type D50.9 ; Chronic diarrhea K52.9 and Pancreatic insufficiency K86.89 [facility] [address] [address] 11/30/2023 Steven Haji Diarrhea, unspecifie d R19.7 [facility] [address] [place] [address] 12/06/2023 Steven Haji Chronic diarrhea K52 .9 [facility] [address] [place] [address] 12/15/2023 Steven Haji [facility] [address] [address] 03/19/2024 Steven Haji Assessments Encounter Date Diagnosis [...] (Non-Screening) 03/11/20 21 IRON + IBC (FE) 05/02/2016 IRON + IBC (FE) 01/27/2022 IRON + IBC (FE) 03/19/2021 IRON + IBC (FE) 05/20/2021 FERRITIN 05/02/2016 VITAMIN B12 AND FOLATE 01/27/2022 CBC w DIFF 03/19/2021 CBC w DIFF 05/20/2021 CBC w DIFF 01/27/2022 CBC w DIFF 05/02/2016 CBC w DIFF 03/11/2021 CBC w DIFF 01/27/2022 CELIAC PANEL #10 04/29/2016 TRYPSIN,STOOL 12/06/2023 CT ABD & PELVIS WITH PO CONT ONLY 2023 STOOL WBC 11/30/2023 STOOL WBC 12/06/2023 C DIFFICILE RFLX PCR 11/30/2023 C DIFFICILE RFLX PCR 12/06/2023 Ferritin 03/19/2021 Ferritin 01/27/2022 Pancreatic Elastase-1 12/06/2023 Fecal Fat Qualitative 12/06/2023 Calprotectin, Fecal 12/06/2023 Calprotectin, Fecal 11/30/2023 CT abdomen pelvis wo con 06/02/2024 Ova and Parasite 12/06/2023 Ova and Parasite 11/30/2023 GI PANEL 11/30/2023 GI PANEL 12/06/2023 GI PANEL 03/08/2024 Future Test Test Name Order Date UPPER GI ENDOSCOPY 04/18/2014 UPPER GI ENDOSCOPY 05/02/2016 COLONOSCOPY 05/02/2016 UPPER GI ENDOSCOPY 01/27/2022 COLONOSCOPY 01/27/2022 Next Appt Details Provider Name:Steven Valdez Raissa , 03/07/2025 01:00:00 PM, [address], [address], [place], [address], Insurance Providers Payer Name Payer Address Payer Phone Subscriber Number Group Number Insured Name Patient Relationship to Insured Coverage Start Date Coverage End Date MEDICARE OF [place] [address] [facility] [place] [address] [phone] [id number] ALICE CARTER Self - patient is the insured [facility] [address] [place] [phone] [id number] ALICE CARTER Self - patient is the insured Medical (General) History Medical History History ICD Code 10/25/2009 Colonoscopy--neg except for h yperplastic polyps--no IBD Tubular adenomas removed in 2002 GERD-EGD in 1997--HH, but ot herwise negative; EGD 05/2014 small HH, no esophagitis, small area of Aguilera's--no dysplasia Depression Hyperlipidemia NIDDM COPD Hypertension Denies [place],CVA,renal disease Microcytic anemia in 2015--h emoglobin 10.8 [...] stenosis. She is being followed by a beef farmer Hospitalized 01/2022 for recu rrent anemia--Hgb 7.7 [...] as described by the patient-Dr. Siddiqi at [facility] 08/14/2020 and 11/2020 Hospitalization History Reason Date(Month/Year) Hospitalized for 2 weeks due to pneumonia, CHF, and Afib, and then rehab for 2 weeks. Spring 2022
--- OUTSIDE RECORDS SUMMARY | 2024-09-27 13:05 | XMS_ITS ---
Author Organization [facility] Address [address] [place] [address] Care Team Providers Care Odd Bundle Worker Name Role Phone Donal BELTRÁN, [place] Primary Care Provider UnaSteven Edwards [phone] Encounters Encounter Location Date Provider Diagnosis [facility] [address] [place] [address] 03/19/2024 Steven Haji Plan Of Treatment Next Appt Details Provider Name:Steven Haji , 03/07/2025 01:00:00 PM, [address], [address], [place], [address], Progress Notes * SUKHDEEP CARTER ADOB: 0 (83 yo F)Acc No.[id number]:03/19/2024 Patient:?SUKHDEEP CARTER :1940???Age:83 Y???Sex:Female Address:[address] [place] [address] [address] [place] [address] Subjective: * Chief Complaints: * ??? * Medical History:? * Surgical History:? * Hospitalization/Major Diagno stic Procedure:? * Medications:? Objective: Assessment: Plan: * Treatment: * Procedure Codes:? * true * Date:? Generated for Reni jayleen/Famonicag/eTransmitting on:?09/27/2024 01:04 PM EDT
--- OUTSIDE RECORDS SUMMARY | 2024-09-27 13:05 | XMS_ITS | Clinical Summary ---
Author Organization [facility] Facility Address [address] [place] [address] Care Team Providers Care Jersey Knitter Name Role Phone Jamel Mansfield MD Primary Care Provider [phone] Social History Tobacco Use Types Packs/Day Years [...] age to complete this topic Insurance Medicare [facility] Care Teams Jersey Knitter Relationship Specialty Start Date End Date Jamel Mansfield MD [address] [place] [address] [address] [place] [address] PCP - General Internal Medicine 10/08/22
== END 2024-09-27 13:33 | disposition home or self-care (01) ==
LOC: HO.HMCH 12:44
PROVIDERS: PCP Internal Medicine; Visit Provider Internal Medicine
DX: I13.0 Hypertensive heart and chronic kidney disease with heart failure and stage 1 through stage 4 chronic kidney disease, or unspecified chronic kidney disease (principal); E11.22 Type 2 diabetes mellitus with diabetic chronic kidney disease; N18.32 Chronic kidney disease, stage 3b; N18.31 Chronic kidney disease, stage 3a; J44.9 Chronic obstructive pulmonary disease, unspecified; I50.32 Chronic diastolic (congestive) heart failure; E78.00 Pure hypercholesterolemia, unspecified; I38 Endocarditis, valve unspecified; I47.10 Supraventricular tachycardia, unspecified; I49.1 Atrial premature depolarization; I73.9 Peripheral vascular disease, unspecified; E05.20 Thyrotoxicosis with toxic multinodular goiter without thyrotoxic crisis or storm

== ENCOUNTER → 2024-09-27 12:43 | Outpatient (BNVA) | payer MEDICARE, OTHER, SELFPAY | PROVIDERS: PCP Internal Medicine; Visit Provider Internal Medicine | DX: E78.00 Pure hypercholesterolemia, unspecified (principal); I13.0 Hypertensive heart and chronic kidney disease with heart failure and stage 1 through stage 4 chronic kidney disease, or unspecified chronic kidney disease; E11.22 Type 2 diabetes mellitus with diabetic chronic kidney disease; N18.32 Chronic kidney disease, stage 3b; I50.32 Chronic diastolic (congestive) heart failure; I38 Endocarditis, valve unspecified; J44.9 Chronic obstructive pulmonary disease, unspecified; I49.1 Atrial premature depolarization; I73.9 Peripheral vascular disease, unspecified; I47.10 Supraventricular tachycardia, unspecified; E05.20 Thyrotoxicosis with toxic multinodular goiter without thyrotoxic crisis or storm; D64.9 Anemia, unspecified; M10.9 Gout, unspecified; E83.42 Hypomagnesemia; K21.9 Gastro-esophageal reflux disease without esophagitis; M54.41 Lumbago with sciatica, right side; G89.29 Other chronic pain; M25.511 Pain in right shoulder; M25.521 Pain in right elbow; F41.9 Anxiety disorder, unspecified; F33.9 Major depressive disorder, recurrent, unspecified; E66.9 Obesity, unspecified; Z83.3 Family history of diabetes mellitus; Z71.3 Dietary counseling and surveillance; Z87.891 Personal history of nicotine dependence | CPT/HCPCS: 96127; 99212 ==

== ENCOUNTER 2024-10-04 13:38 | Outpatient (AMB) | payer MEDICARE, OTHER, SELFPAY ==
--- NOTE | 2024-10-04 13:52 | MHC.OFFWIV ---
Intake Vital Signs 10/04/24 13:53 Weight 186 lb BP 118/66 Blood Pressure Location Rt brachial Position Sitting Pulse 52 Pulse Source Pulse Oximeter Pulse Oximetry (%) 98 Oxygen Delivery Method Room Air Intake Visit Reasons: EP RT foot pain Intake Note: Patient here for right foot pain that started last week. Patient Tobacco Use Status: Former Tobacco user Allergies Iodinated Contrast Media [IV DYE, IODINE CONTAINING CONTRAST ] Allergy (Severe, Verified 10/04/24 13:54) HIVE Penicillins [PENICILLINS] Allergy (Severe, Verified 10/04/24 13:54) HIVES Do you need a note to return to daycare/school/sports/work: No HPI HPI Comments History of Present Illness Details History of Present Illness - The patient is an 83-year-old female presenting with pain in the right foot following a cat bite. - The bite, inflicted by her own cat last week, has resulted in increasing pain and potential infection. - The pain has recently evolved into a throbbing and burning sensation. - The patient is allergic to Penicillin. - The patient's tetanus vaccination status is current, last administered in July 2023. - Cat is up to date on all vaccinations, including rabies, per patient. Physical Exam General: Cooperative, healthy appearing, comfortable, no acute distress and well developed Orientation: Patient oriented x3 Limitations: No limitations Head: Normal to inspection Ears: Hearing grossly normal bilaterally Nose: Normal External nose present Face and sinus: Normal facial exam Eyes: Appearance normal, both eyes and all related structures Neck: Normal visual inspection and Yes full ROM Respiratory: Normal respiratory effort and able to speak in complete sentences. Skin: No rashes or lesions noted Neuro: Patient oriented x3 Extremities: slight TTP or right foot base of the 5th metatarsal, 4 pinpoint areas of erythema, no edema, no ecchymosis, full ROM right ankle, full ROM all toes right foot and toes all [facility] Medical History Pneumonia Chronic diastolic heart failure CHF (congestive heart failure) Thrush, oral GI bleed Occult blood positive stool Microcytic anemia Valvular heart disease Exertional dyspnea Hemorrhagic cystitis Osteopenia Toxic multinodular goiter Obesity (BMI 30-39.9) Hearing impairment Peripheral vascular disease Obesity (BMI 30-39.9) Depression Anxiety Osteoarthritis of ankle and foot Vitamin D deficiency Allergic rhinitis Anemia GERD without esophagitis Gout Hypomagnesemia Multiple thyroid nodules Pure hypercholesterolemia Benign essential hypertension PSVT (paroxysmal supraventricular tachycardia) PAC (premature atrial contraction) COPD (chronic obstructive pulmonary disease) Chronic kidney disease (CKD), stage III (moderate) Type 2 diabetes mellitus with diabetic chronic kidney disease Sciatica of right side Surgical History History of colonoscopy History of angioplasty of peripheral vessel (~08/13/20) History of biopsy History of neck surgery History of cataract surgery History of bladder surgery History of tonsillectomy and adenoidectomy History of appendectomy History of hysterectomy Family History Father Stroke CVD (cardiovascular disease) Mother CVD (cardiovascular disease) Hypertension CAD (coronary artery disease) Other Mental health disorder Social History Household Members: None [facility] Do you presently have visiting nurse or other home services: Yes (programmer analyst once per week- [facility]) Alcohol intake: current Alcohol intake frequency: holidays/special occasions only Alcohol type: beer and hard liquor Patient Tobacco Use Status: Former Tobacco user Tobacco use type: Cigarette Cigarette Packs Per Day: 2 Cigarettes Per Day: 40.0 Years Smoked: 40 e-Cigarette/Vaping Use: Never Used Second Hand Smoke Exposure: Yes service: No Current occupational status: retired Cognitive needs: Yes (cane) Hearing needs: Yes Vision needs: Yes Review of Systems Const All systems reviewed & are unremarkable except as noted in HPI and below Physical Exam Vital Signs: Last Vital Signs Pulse 52 10/04/24 13:53 BP 118/66 10/04/24 13:53 Pulse Ox 98 10/04/24 13:53 Oxygen Delivery Method Room Air 10/04/24 13:53 Assessment & Plan Assessment & Plan (1) Cat bite of right foot: Code(s): S91.351A - Open bite, right foot, initial encounter; W55.01XA - Bitten by cat, initial encounter Qualifiers: Encounter type: initial encounter Qualified Code(s): S91.351A - Open bite, right foot, initial encounter; W55.01XA - Bitten by cat, initial encounter Plan: The patient will commence treatment with Doxycycline, dosed at twice daily for a week, as prophylaxis against potential infection due to the cat bite on her right forearm, acknowledging her Penicillin allergy. This antibiotic is chosen based on its efficacy and safety for this situation. The patient's tetanus vaccination, verified as current, given in 07/3023, requires no update. She will be instructed to observe the bite site for any escalation of symptoms or signs of infection, such as increased redness, swelling, and pus discharge, and to seek additional medical attention if these occur. Patient was informed and verbally consented to the use of an ambient scribe for clinic note documentation during this visit. Medications: New doxycycline hyclate 100 mg PO BID 14 tabs 0RF Coding Level of Care Code Est Pt Level 3 (76750) Diagnoses Cat bite of right foot, initial encounter S91.351A; W55.01XA Encounter type: initial encounter
[2024-10-04 13:53] VITALS: BP 118/66; PULSE 52; O2SAT 98
--- OUTSIDE RECORDS SUMMARY | 2024-10-04 14:10 | XMS_ITS | Clinical Summary ---
Author Organization [facility] Facility Address [address] [place] [address] Care Team Providers Care Surgical Manager Name Role Phone Jamel Mansfield MD Primary Care Provider +1- [phone] Social History Tobacco Use Types Packs/Day Years Used Date Smoking Tobacco: Never Assessed Comments Unknown Sex and Gender Information Value Date Recorded Sex Assigned at Not on file Legal Sex Female 1:50 PM EDT Gender Identity Not on file Sexual Orientation Not on file Plan of Treatment Health Maintenance Due Date Last Done Comments Pneumococcal Vaccine: 50+ Ye ars (2 of 2 - PPSV23, PCV20, or PCV21) 04/06/2018 02/09/2018 Diabetes: Hemoglobin A1C 10/08/2022 Diabetes: Ophthalmology Exam 10/08/2022 Diabetes: Pedal Pulse Checked 10/08/2022 Diabetes: Sensory Foot Exam 10/08/2022 Diabetes: Visual Foot Exam 10/08/2022 Influenza Vaccine (Season Ended) 2025 02/10/20 18 Hepatitis B Vaccine Aged Out No longe r eligible based on patient's age to complete this topic Insurance Medicare [facility] Care Teams Surgical Manager Relationship Specialty Start Date End Date Jamel Mansfield MD [address] [place] [address] [address] [place] [address] PCP - General Internal Medicine 10/08/22
== END 2024-10-04 14:42 | disposition home or self-care (01) ==
PROVIDERS: PCP Internal Medicine; Visit Provider Physician Assistant
DX: S91.351A Open bite, right foot, initial encounter (principal); W55.01XA Bitten by cat, initial encounter

== ENCOUNTER → 2024-10-04 13:38 | Outpatient (BNVA) | payer MEDICARE, OTHER, SELFPAY | PROVIDERS: PCP Internal Medicine; Visit Provider Physician Assistant | DX: S91.351A Open bite, right foot, initial encounter (principal); W55.01XA Bitten by cat, initial encounter | CPT/HCPCS: 99212 ==

== ENCOUNTER 2024-11-15 14:23 | Outpatient (AMB) | payer MEDICARE, OTHER, SELFPAY ==
--- NOTE | 2024-11-15 14:26 | A.OFFVIS_ITS ---
Vital Signs 11/15/24 14:33 Height 5 ft 2 in Weight 186 lb BMI 34.0 Intake Visit Reasons: OV- right shoulder pain, last inj 08/15/24 Intake Note: Alice is an 83 year old right hand dominant female who presents with complaints of right shoulder pain. She describes her pain as sharp in nature. She has had cortisone injections in the past which gave her fairly good relief. She has also tried Tylenol and anti-inflammatory medicines which gave her minimal relief. She wishes to hold off on surgery if at all possible. Allergies Iodinated Contrast Media (IV DYE, IODINE CONTAINING CONTRAST ) Allergy (Severe, Verified 11/15/24 14:32) HIVE Penicillins (PENICILLINS) Allergy (Severe, Verified 11/15/24 14:32) HIVES Medication List - Last Reconciled 11/16/24 by Gael Dennison MD albuterol sulfate 90 mcg/actuation (Ventolin HFA) 2 puffs inhalation Q4-6H PRN allopurinol 100 mg PO DAILY 90 days atorvastatin (Lipitor) 80 mg PO DAILY cholecalciferol (vitamin D3) 50 mcg PO DAILY 90 days citalopram 20 mg PO clotrimazole-betamethasone 1-0.05 % 1 appl topical BID 2 weeks dapagliflozin propanediol (Farxiga) 5 mg PO QAM diltiazem HCl ER 240 mg PO DAILY diphenoxylate-atropine 2.5-0.025 mg tabs PO PRN doxycycline hyclate 100 mg PO BID ferrous sulfate (Feosol) 325 mg PO BID fluticasone furoate-vilanterol 200-25 mcg/dose (Breo Ellipta) 1 ea PO DAILY 90 days Incruse Ellipta 62.5 mcg/actuation (umeclidinium) 1 inh inhalation DAILY 30 days NS Januvia (sitagliptin phosphate) 100 mg PO DAILY 30 days NS lansoprazole (Prevacid) 30 mg PO DAILY@0630 mecobalamin (vitamin B12) 5,000 mcg PO DAILY melatonin 10 mg PO BEDTIME PRN metoprolol succinate ER 100 mg PO DAILY mirtazapine 15 mg PO BEDTIME montelukast 10 mg PO DAILY nystatin 1 appl topical TID 10 days potassium chloride ER 50 mEq PO DAILY prothrombin time/INR test metr (Coaguchek XS Pro) As directed prothrombin time/INR test metr (ClearStream XS Pro) As directed spironolactone 25 mg PO DAILY torsemide 20 mg PO .QOD trazodone 50 mg PO BEDTIME warfarin Take 1 tablet daily or as instructed orally; [facility] Medical History Pneumonia Chronic diastolic heart failure CHF (congestive heart failure) Thrush, oral GI bleed Occult blood positive stool Microcytic anemia Valvular heart disease Exertional dyspnea Hemorrhagic cystitis Osteopenia Toxic multinodular goiter Obesity (BMI 30-39.9) Hearing impairment Peripheral vascular disease Obesity (BMI 30-39.9) Depression Anxiety Osteoarthritis of ankle and foot Vitamin D deficiency Allergic rhinitis Anemia GERD without esophagitis Gout Hypomagnesemia Multiple thyroid nodules Pure hypercholesterolemia Benign essential hypertension PSVT (paroxysmal supraventricular tachycardia) PAC (premature atrial contraction) COPD (chronic obstructive pulmonary disease) Chronic kidney disease (CKD), stage III (moderate) Type 2 diabetes mellitus with diabetic chronic kidney disease Sciatica of right side Surgical History History of colonoscopy History of angioplasty of peripheral vessel (~08/13/20) History of biopsy History of neck surgery History of cataract surgery History of bladder surgery History of tonsillectomy and adenoidectomy History of appendectomy History of hysterectomy Family History Father Stroke CVD (cardiovascular disease) Mother CVD (cardiovascular disease) Hypertension CAD (coronary artery disease) Other Mental health disorder Social History Household Members: None Housing: Condominium Do you presently have visiting nurse or other home services: Yes (blasting contract miner once per week- [facility]) Alcohol intake: current Alcohol intake frequency: holidays/special occasions only Alcohol type: beer and hard liquor Patient Tobacco Use Status: Former Tobacco user Tobacco use type: Cigarette Cigarette Packs Per Day: 2 Cigarettes Per Day: 40.0 Years Smoked: 40 e-Cigarette/Vaping Use: Never Used Second Hand Smoke Exposure: Yes service: No Current occupational status: retired Cognitive needs: Yes (cane) Hearing needs: Yes Vision needs: Yes Physical Exam Vital Signs: BMI result Body Mass Index 34.0 Const Other: Well-nourished well-developed very friendly female awake alert and oriented x3 in no acute distress Extrem Other: Right shoulder examination shows decreased range of motion when compared to her left shoulder, positive impingement signs, no instability, 3/5 strength with supraspinatus testing Office Procedures AMB Joint Injection/Aspiration Joint Injection/Aspiration Primary Site: right shoulder Prep: site was prepped using aseptic technique Injected: 40 mg of, DepoMedrol and 1% plain lidocaine Procedure: The patient tolerated the procedure well Coding - Large joint Procedure code (CPT) selection complete Assessment & Plan Assessment & Plan (1) Impingement of right shoulder: Code(s): M25.811 - Other specified joint disorders, right shoulder Category: Medical Plan Ms. Martinez presents with right shoulder pain due to impingement syndrome and most likely chronic rotator cuff tearing. The risks and benefits of a right shoulder cortisone injection were discussed at length with the patient. The patient wished to proceed. She tolerated the injection well. She will continue with her home stretching program. She will contact me prior to her follow-up appointment in 3 months should any questions or concerns arise. Feel free to call me at any time should questions regarding her orthopedic management arise. I spent 21 minutes in reviewing the patient's records and imaging studies, seeing the patient and documenting in the medical record. Orders: Orders AMB Joint Injection/Aspiration 11/15/24 M25.811 - Other specified joint disorders, right shoulder Coding Level of Care Code Est Pt Level 3 (02481) Complex EM visit Add On G2211 Diagnoses Impingement of right shoulder M25.811 CPT Codes Coding - 50145 Large joint: 29312 - Large joint ([id number])
[2024-11-15 14:33] VITALS: BMI 34.0
--- OUTSIDE RECORDS SUMMARY | 2024-11-15 14:56 | XMS_ITS | Patient Health Record ---
Author Organization [facility] Address [address] [place] [address] Care Team Providers Care Slide Forming Machine Operator Name Role Phone Donal BELTRÁN, [place] Primary Care Provider Freeman Lindo Unavailable [phone] Allergies Allergen (clinical drug ingredient) Drug/Non Drug Allergy documented on EMR Reaction Allergy Type Onset Date Status Penicillin hives Drug Allergy Active Iodine hives Drug Allergy Active Reason For Referral No Information Medications Medication SIG (Take, Route, Frequency, Duration) Notes Start Date End Date Status Cilostazol 50 MG 1 tablet 30 minutes before or 2 hours after breakfast and dinner Orally Twice a day; Duration: 30 day(s) Active traZODone HCl 50 MG Orally Active Colcrys 0.6 MG 1 tablet Orally Up t o Four times a day; Duration: 5 days 10/10/2014 Not-Taking metFORMIN HCl 500 MG 1 tablet with meals Orally Twice a day Not-Taking Colcrys 0.6 MG 1 tablet Orally Once a day; Duration: 30 days 10/10/2014 Not-Takin g Atorvastatin Calcium 40 MG 1 tablet Orally Once a day Active Mirtazapine 15 MG 1 tablet at bedtime Orally Once a day; Duration: 30 day(s) Active Nabumetone 500 MG 1 tablet Orally Twic e a day; Duration: 30 day(s) 08/02/2014 Not-Taking Citalopram Hydrobromide 40 MG 0.5 tablet Orally Once a day; Duration: 30 day(s) Active Montelukast Sodium 10 MG 1 tablet Orally Once a day; Duration: 30 day(s) Active Singulair 10 MG 1 tablet in the even ing Orally Once a day Not-Taking Symbicort 160-4.5 MCG/ACT 2 puffs Inhala tion Twice a day Not-Taking Advair Diskus Active Lansoprazole 30 MG 1 capsule before a m eal Orally Once a day Active Allopurinol 100 MG 1 tablet Orally Once a day; Duration: 30 day(s) Active Paxil 30 MG 1 tablet in the morn ing Orally Once a day Not-Taking Warfarin Sodium 5 MG 1 tablet Orally Onc e a day Active Diovan HCT 160-12.5 MG 1 tablet Orally O nce a day Not-Taking dilTIAZem HCl ER Beads 240 MG 1 capsule Orally Once a day; Duration: 30 day(s) Active Januvia 100 MG 1 tablet Orally Once a day; Duration: 30 day(s) Not-Taking Metoprolol Tartrate Active Losartan Potassium 100 MG 1 tablet Orall y Once a day; Duration: 30 day(s) Active Immunizations Vaccine Route Administration [...] Problem Status W/U Status Risk Notes Problem Information temporarily unavailable Type 2 diabetes mellitus with diabetic polyneuropathy (E11.42) Active confirmed Problem Information temporarily unavailable Unspecified atherosclerosis of [place] arteries of extremities, bilateral legs (I70.203) Active confirmed Problem Information temporarily unavailable Other hammer toe(s) (acquired), left foot (M20.42) Active confirmed Problem Information temporarily unavailable Type 2 diabetes mellitus with diabetic polyneuropathy (E11.42) Active confirmed Problem Information temporarily unavailable Type 1 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) Active confirmed Plan Of Treatment Pending Test Test Name Order Date X ray : Foot, left 2V 08/02/2014 X ray : Foot, left 2V 08/22/2014 X ray : Foot, left 2V 08/30/2014 X ray : Foot, left 2V 09/13/2014 X ray : Foot, right 2V 10/10/2014 *Uric Acid, Serum 10/10/2014 *Sedimentation Rate-Westergren 5 20445-OTIUYAR NAIL, 1-5 09/13/2014 28081-ZAPS SKIN LESIONS, 2 TO 4 07/23/19 21 12834-QFFB SKIN LESIONS, 2 TO 4 10/22/19 21 56327-QMNI SKIN LESIONS, 2 TO 4 01/14/20 21 17476-PMFT SKIN LESIONS, 2 TO 4 04/23/20 21 07468-LYMW SKIN LESIONS, 2 TO 4 08/07/19 22 68021, Y6157-UPYWB/INJECT, JOINT/BURSA 0 10/24/2015 81370, J0702- Neuroma/Injection 05/31/19 15 73349, J0702- Neuroma/Injection 10/26/19 15 Insurance Providers Payer Name Payer Address Payer Phone Subscriber Number Group Number Insured Name Patient Relationship to Insured Coverage Start Date Coverage End Date Medicare National Govt S[employer] [address] [place] [address] [id number] Alice Martinez Self - patient is the insured [facility] [address] [place] [address] [phone] [id number] Alice Martinez Self - patient is [...] lipoma nye Bun, left 08/16/2014 hip surgery 2015 Stent main artery 08/14/20 angioplasty legs Guille 12/10/2020 Hospitalization History Reason Date(Month/Year) [facility]- Bunion surgery left foot 08/16/14 [facility] vascular sx 08/14/20-08/21/20
--- OUTSIDE RECORDS SUMMARY | 2024-11-15 14:57 | XMS_ITS | Clinical Summary ---
Author Organization [facility] Facility Address [address] [place] [address] Care Team Providers Care Blade Changer Name Role Phone Jamel Mansfield MD Primary Care Provider +1- [phone] Social History Tobacco Use Types Packs/Day Years [...] age to complete this topic Insurance Medicare [facility] Care Teams Blade Changer Relationship Specialty Start Date End Date Jamel Mansfield MD [address] [place] [address] [address] [place] [address] PCP - General Internal Medicine 10/08/22
--- OUTSIDE RECORDS SUMMARY | 2024-11-15 14:57 | XMS_ITS | Patient Health Record ---
Author Organization [facility] Address [address] [place] [address] Care Team Providers Care Operations Supervisor Name Role Phone Donal BELTRÁN, [place] Primary Care Provider Steven Irving [phone] Allergies Allergen (clinical drug ingredient) Drug/Non Drug Allergy documented on EMR Reaction Allergy Type Onset Date Status Penicillin Unknown Drug Allergy Active contrast dye (uncoded) Unknown Allergy Active Results Component Value Reference Range Notes Leukocytes Stool Qualitative Reviewed date:12/15/2023 11:09:11 PM Interpretation: Performing Lab:[facility], [address] [place] [address] Notes/Report: Leukocytes Stool Qualitative NEGATIVE NEGATIVE Pancreatic Elastase-1 Reviewed date:01/01/2024 10:04:49 PM Interpretation: Performing Lab:[facility], [address] [place] [phone] Notes/Report: Pancreatic Elastase-1 123 Adult and Pediatric Reference Ranges for Pancreatic Elastase-1: Normal: >200 mcg/g Moderate Pancreatic Insufficiency: 100-200 mcg/g Severe Pancreatic Insufficiency: <100 mcg/g Elastase-1 (E-1) assay results are expressed in mcg/g, which represent mcg E1/g feces. It is not necessary to interrupt enzyme substitution therapy. THIS TEST WAS PERFORMED AT: [facility] [address] [place] [address] BRENDON FOSTER MD,PHD,LILIANA Fecal Fat Qualitative Reviewed date:12/25/2023 01:02:36 AM Interpretation: Performing Lab:[facility], [address] [place] [phone] Notes/Report: Fecal Fat Qualitative Normal Normal THIS TEST WAS PERFORMED AT: [facility] [address] [place], [place] JANNY BOCANEGRA MD,PHD Calprotectin, Fecal Reviewed date:12/25/2023 01:02:53 AM Interpretation: Performing Lab:[facility], [address] [place] [address] Notes/Report: Calprotectin, Fecal 126 Reference Range: <50 [...] borderline values. THIS TEST WAS PERFORMED AT: [facility] [address] [place] [address] BRENDON FOSTER MD,PHD,LILIANA Ova and Parasite Reviewed date:12/29/2023 06:45:37 PM Interpretation: Performing Lab:[address] [address] Notes/Report: Ova and Parasite SEE NOTE OVA AND PARASITES, CONC AND PERM SMEAR Micro Number: [id number] Test Status: Final Specimen Source: Stool Specimen [...] infection. For additional information, please refer to [email or web address]://education.[employer].[email or web address] CUPS and some sugar/faq/ZVT421 (This link is being provided for informational/ educational purposes only.) THIS TEST WAS PERFORMED AT: [facility] [address] [address] SUGEY QUEVEDO MD CDiff Gene PCR Reviewed date:12/15/2023 11:09:17 PM Interpretation: Performing Lab:[address] [address] Notes/Report: CDiff Gene PCR NEGATIVE Negative If C. difficile strongly suspected despite one negative test, a second test may be sent vs. empiric treatment for C. difficile infection. GI PANEL Reviewed date:01/01/2024 10:03:38 PM Interpretation: Performing Lab:[facility], [address] [place] [address] Notes/Report: Campylobacter Not Detected Not Detect. Plesiomonas [...] is performed by Multiplexed PCR, utilizing the PROTEGO Film Array. MAMMOGRAM DIGITAL BILATERAL SCREEN Reviewed date:03/08/2024 01:31:20 PM Interpretation:Normal Performing Lab: Notes/Report: Normal GI PANEL Reviewed date:04/25/2024 09:24:57 PM Interpretation: Performing Lab:[facility], [address] [place] [address] Notes/Report: Campylobacter Not Detected Not Detect. Plesiomonas [...] reviewed by provider) Interpretation: Performing Lab: Notes/Report: [address] [address] [address] Scan Report Signed Patient: Alice Carter MR#: [id number] 89 : 1940 Acct:[id number] Age/Sex: 83 / F ADM Date: 06/02/24 Loc: HO.CT Attending Dr: Steven Haji MD Ordering Physician: Steven Haji MD Date of Service: 06/02/24 Procedure(s): CT abdomen pelvis wo IV con Accession Number(s): [id number] cc: Jamel Mansfield MD; Steven Haji MD Report Number: [id number]: Total DLP = 756.00 mGy-cm EXAMINATION: CT [...] 06/05/24 0842 DD/ 1530 TD/TT: 06/02/24 1738 Mechanical Specialist: Reason For Referral No Information Medications Medication [...] Status W/U Status Risk Notes Problem Diarrhea (39484733) Diarrhea, unspecified (R19.7) Active confirmed Problem 329697876 Gastroesophageal reflux disease, esophagitis presence not specified (K21.9) Active confirmed Problem 31386097 Heme + stool (R19.5) Active confirmed Problem Anemia (134837090) Anemia (D64.9) Active confirmed Problem 727531281 Iron deficiency anemia due to chronic blood loss (D50.0) Active confirmed Problem 346994159 Microcytic anemi a (D50.9) Active confirmed Problem 317670805 Angiodysplasia o f colon (K55.20) Active confirmed Problem 61805339 Iron deficiency anemia, unspecified iron deficiency anemia type (D50.9) Active confirmed Problem 15649058 Diarrhea, unspecified type (R19.7) Active confirmed Problem Chronic diarrhea (676279297) Chronic diarrhea (K52.9) Active confirmed Problem 01061890 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) Active confirmed Problem Pancreatic insufficiency (76899863) Pancreatic insufficiency (K86.89) Active confirmed Problem Incontinence of feces (72733265) Fecal soiling due to fecal incontinence (R15.9) Active confirmed Vital Signs Temperature 95.5 degrees Fahrenheit 03/08/2024 Blood pressure diastolic 72 mm Hg 03/08/2024 Height 62.5 in 03/08/2024 Blood pressure systolic 118 mm Hg 03/08/2024 Weight 189 lb 6 oz lbs 03/08/2024 BMI 34.08 kg/m2 03/08/2024 Encounters Encounter Location Date Provider Diagnosis [facility] [address] [place] [phone] 03/08/2024 Steven Haji Gastroesophageal ref lux disease, esophagitis presence not specified K21.9 ; Iron deficiency anemia, unspecified iron deficiency anemia type D50.9 ; Chronic diarrhea K52.9 and Pancreatic insufficiency K86.89 [facility] [address] [place] [phone] 11/30/2023 Steven Haji Diarrhea, unspecifie d R19.7 [facility] [address] [place] [phone] 12/06/2023 Steven Haji Chronic diarrhea K52 .9 [facility] [address] [place] [phone] 12/15/2023 Steven Haji [facility] [address] [place] [address] 03/19/2024 Steven Haji Assessments Encounter Date Diagnosis [...] B12 AND FOLATE 01/27/2022 CBC w DIFF 01/27/2022 CBC w DIFF 05/02/2016 CBC w DIFF 03/11/2021 CBC w DIFF 01/27/2022 CBC w DIFF 03/19/2021 CBC w DIFF 05/20/2021 CELIAC PANEL #10 04/29/2016 TRYPSIN,STOOL 12/06/2023 CT ABD & PELVIS WITH PO CONT ONLY 2023 STOOL WBC 11/30/2023 STOOL WBC 12/06/2023 C DIFFICILE RFLX PCR 12/06/2023 C DIFFICILE RFLX PCR 11/30/2023 Ferritin 01/27/2022 Ferritin 03/19/2021 Pancreatic Elastase-1 12/06/2023 Fecal Fat Qualitative 12/06/2023 Calprotectin, Fecal 11/30/2023 Calprotectin, Fecal 12/06/2023 CT abdomen pelvis wo con 06/02/2024 Ova and Parasite 12/06/2023 Ova and Parasite 11/30/2023 GI PANEL 12/06/2023 GI PANEL 03/08/2024 GI PANEL 11/30/2023 Future Test Test Name Order Date UPPER GI ENDOSCOPY 04/18/2014 UPPER GI ENDOSCOPY 05/02/2016 COLONOSCOPY 05/02/2016 UPPER GI ENDOSCOPY 01/27/2022 COLONOSCOPY 01/27/2022 Next Appt Details Provider Name:Steven Haji , 03/07/2025 01:00:00 PM, [address] [facility], [address], [place], [address], Insurance Providers Payer Name Payer Address Payer Phone Subscriber Number Group Number Insured Name Patient Relationship to Insured Coverage Start Date Coverage End Date MEDICARE [place] [address] [place] [address] [phone] [id number] ALICE CARTER Self - patient is the insured [facility] [address] [place] [address] [phone] [id number] ALICE CARTER Self - patient is the insured Medical (General) History Medical History History ICD Code 10/25/2009 Colonoscopy--neg except for h yperplastic polyps--no IBD Tubular adenomas removed in 2002 GERD-EGD in 1997--HH, but ot herwise negative; EGD 05/2014 small HH, no esophagitis, small area of Aguilera's--no dysplasia Depression Hyperlipidemia NIDDM COPD Hypertension Denies AR,CVA,renal disease Microcytic anemia in 2015--h emoglobin 10.8 [...] stenosis. She is being followed by a mill washer Hospitalized 01/2022 for recu rrent anemia--Hgb 7.7 [...] as described by the patient-Dr. Siddiqi at [facility] 08/14/2020 and 11/2020 Hospitalization History Reason Date(Month/Year) Hospitalized for 2 weeks due to pneumonia, CHF, and Afib, and then rehab for 2 weeks. Spring 2022
== END 2024-11-15 14:44 | disposition home or self-care (01) ==
LOC: HO.HOS 14:24
PROVIDERS: PCP Internal Medicine; Visit Provider Orthopaedic Surgery
DX: M25.811 Other specified joint disorders, right shoulder (principal)
CPT/HCPCS: 20610; 99213

== ENCOUNTER → 2024-11-15 14:23 | Outpatient (BNVA) | payer MEDICARE, OTHER, SELFPAY | PROVIDERS: PCP Internal Medicine; Visit Provider Orthopaedic Surgery | DX: M25.811 Other specified joint disorders, right shoulder (principal); Z79.2 Long term (current) use of antibiotics; Z79.01 Long term (current) use of anticoagulants; Z79.899 Other long term (current) drug therapy | CPT/HCPCS: 20610; 99212; J1010; J2003 ==

== ENCOUNTER 2025-01-10 10:25 | Outpatient (REF) | payer MEDICARE, OTHER, SELFPAY ==
--- OUTSIDE RECORDS SUMMARY | 2025-01-10 11:19 | XMS_ITS | Patient Health Record ---
Author Organization [facility] Address [address] [place] [address] Care Team Providers Care Motion Picture Set Grip Name Role Phone Donal BELTRÁN, [place] Primary Care Provider Freeman Lindo Unavailable [phone] Allergies Allergen (clinical drug ingredient) Drug/Non Drug [...] Vaccine Route Administration Date Status Comme nts Influenza Unknown 02/14/2022 Administered COVID-19 Pfizer BioNTech Vaccine Unknown 02/14/2022 Administered 1st 06/21/20,07/12/20 03/14/21 Social History Tobacco Use: Social History Observation [...] Problem Information temporarily unavailable Unspecified atherosclerosis of [place] arteries of extremities, bilateral legs (I70.203) Active [...] *Uric Acid, Serum 10/10/2014 *Sedimentation Rate-Devonren 5 66641-YBRDZKM NAIL, 1-5 09/13/2014 92254-PBIG SKIN LESIONS, 2 TO 4 07/23/19 21 24286-EFLJ SKIN LESIONS, 2 TO 4 10/22/19 21 67771-GCFV SKIN LESIONS, 2 TO 4 01/14/20 21 90832-AUVE SKIN LESIONS, 2 TO 4 04/23/20 21 35252-ZTLE SKIN LESIONS, 2 TO 4 08/07/19 22 84186, M2787-JQWKM/INJECT, JOINT/BURSA 0 10/24/2015 51056, J0702- Neuroma/Injection 05/31/19 15 24149, J0702- Neuroma/Injection 10/26/19 15 Next Appt Details Provider Name:Carolyn Regalado ángela, 02/07/2025 02:00:00 PM, [address] [place], [address], Insurance Providers Payer Name Payer Address Payer Phone Subscriber Number Group Number Insured Name Patient Relationship to Insured Coverage Start Date Coverage End Date Medicare National Govt Svcs Inc [address] [place] [address] [id number] Alice Martinez Self - patient is the insured [facility] [address] [place] [address] [id number] Alice Martinez Self - patient is [...] 1973 tonsillectomy 1945 back surgery bladder suspension 1998 appendectomy 1960 lipoma nye Bun, left 08/16/2014 hip surgery 2015 Stent main artery 08/14/20 angioplasty legs Guille 12/10/2020 Hospitalization History Reason Date(Month/Year) [facility]- Bunion surgery left foot 08/16/14 [facility] vascular sx 08/14/20-08/21/20
--- OUTSIDE RECORDS SUMMARY | 2025-01-10 11:19 | XMS_ITS | Encounter Summary ---
Author Organization [facility] Address [facility] [address] [place] [address] Phone Care Team Providers Care Car Sales Associate Name Role Phone Jamel Mansfield MD Primary Care Provider +1 [phone] Reason for Referral * MRI/CAT Scan - Closed Specialty Diagnoses / Procedures Referred By Contac t Referred To Contact Radiology Diagnoses Peripheral vascular disease, unspecified Procedures CT Angio Abdominal Aorta and Bilateral Lower Extremity Runoff Ofelia Villasenor MD [address] [address] Phone: tel: fax: Referral ID Status Reason Start Date Expiration Date Visits Re quested Visits Authorized [id number] Closed 05/09/2019 05/08/2020 1 1 Encounter Details Date Type Department Care Team (Latest Contact Info) Description 05/09/2019 Transcribe Orders Virtual Department [address] [place] [address] Ofelia Villasenor MD [address] [address] Peripheral vascular disease, unspecified (Primary Dx) Social History Tobacco Use Types Packs/Day Years Used Date Smoking Tobacco: Former Smokeless Tobacco: Never Alcohol Use Standard Drinks/Week Comments Yes 0 (1 standard drink = 0.6 oz pur e alcohol) Comments No Sex and Gender Information Value Date Recorded Sex Assigned at Not on file Legal Sex Female 10:12 PM EDT Gender Identity Not on file Sexual Orientation Not on file documented as of this encounter Plan of Treatment Upcoming Encounters Date Type Department Care Team (Late st Contact Info) Description 02/16/2025 3:20 PM EDT Office [facility] [address] [place] [address] Darryl Khan MD [address] [place] [address] [email or web address] documented as of this encounter Results * CT ANGIO ABDOMINAL AORTA AND BILATERAL LOWER EXTREMITY RUNOFF WITH CONTRAST (05/30/2019 1:13 PM EST) Anatomical Region Laterality Modality Abdominal Vasculature, Foot Right, Foot Left, Ankle Right, Ankle Left, Leg Right, Leg Left, Knee Bilateral, Knee Right, Knee Left, Thigh Right, Thigh Left, Hip Bilateral, Hip Right, Hip Left Computed Kareem graphy 05/30/2019 7:02 PM EST Impressions 05/30/2019 7:22 PM EST Diffuse atherosclerotic calcific plaquing. Equivocal stenosis at the origin of the right renal artery. Focal moderately tight stenosis of the proximal left common femoral artery. No other focal high-grade stenosis identified. TOTAL CTDIvol: 22.00 mGy POS - [id number] Narrative 05/30/2019 7:22 PM EST COMPARISON: None TECHNIQUE: Pre-contrast views were obtained for planning purposes. High density intravenous contrast is then administered and scanning obtained from lung bases through the feet. Multiplanar reformats and 3-D vascular reformats generated. Automated exposure control utilized. FINDINGS: Vascular: There is diffuse atherosclerotic calcific plaquing throughout the abdominal aorta and common iliac and proximal internal and external iliac arteries and distal left external iliac artery. There is a small amount of irregular intraluminal thrombus caudal to the takeoff of the SMA. No significant aneurysm or evidence of acute dissection. Main trunks and proximal branches of the SMA and celiac axis appear to be patent. There is mild atherosclerotic plaquing in the left renal artery without focal stenosis. There is ostial plaquing at the origin of the right renal artery with equivocal focal stenosis. Common and external iliac arteries appear to be patent bilaterally. There is diffuse atherosclerotic calcific plaquing along the margins of the right common femoral and popliteal arteries without focal high-grade stenosis demonstrated. Trifurcation vessels appear to be patent to the level of the distal calf with the majority of flow across the ankle supplied via the anterior and posterior tibial arteries. There is diffuse atherosclerotic calcific plaquing along the margins of the left femoral and popliteal arteries. There appears to be a focal moderate to tight stenosis in the proximal common femoral artery immediately beyond the inguinal canal. No other significant focal femoral or popliteal stenosis apparent. There is atherosclerotic plaquing and the trifurcation vessels with the majority of flow across the ankle supplied by the anterior tibial and posterior tibial arteries. No significant hepatic, splenic, or renal lesions apparent. Left upper pole renal cortical cyst. There are lumbar degenerative disc changes and lower lumbar facet osteoarthropathy. Right hip compression nails are present. There are soft tissue calcifications along the margin of the left greater trochanter. No discrete soft tissue mass identified. Procedure Note Juan Antonio Beverly MD - 05/30/2019 COMPARISON: None TECHNIQUE: Pre-contrast views were obtained for planning purposes. Highdensity intravenous contrast is then administered and scanning obtainedfrom lung bases through the feet. Multiplanar reformats and 3-D vascularreformats generated. Automated exposure control utilized. FINDINGS: Vascular: There is diffuse atherosclerotic calcific plaquing throughoutthe abdominal aorta and common iliac and proximal internal and externaliliac arteries and distal left external iliac artery. There is a smallamount of irregular intraluminal thrombus caudal to the takeoff of theSMA. No significant aneurysm or evidence of acute dissection. Maintrunks and proximal branches of the SMA and celiac axis appear to bepatent. There is mild atherosclerotic plaquing in the left renal arterywithout focal stenosis. There is ostial plaquing at the origin of theright renal artery with equivocal focal stenosis. Common and externaliliac arteries appear to be patent bilaterally. There is diffuse atherosclerotic calcific plaquing along the margins ofthe right common femoral and popliteal arteries without focal high-gradestenosis demonstrated. Trifurcation vessels appear to be patent to thelevel of the distal calf with the majority of flow across the anklesupplied via the anterior and posterior tibial arteries. There is diffuse atherosclerotic calcific plaquing along the margins ofthe left femoral and popliteal arteries. There appears to be a focalmoderate to tight stenosis in the proximal common femoral arteryimmediately beyond the inguinal canal. No other significant focal femoralor popliteal stenosis apparent. There is atherosclerotic plaquing and thetrifurcation vessels with the majority of flow across the ankle suppliedby the anterior tibial and posterior tibial arteries. No significant hepatic, splenic, or renal lesions apparent. Left upperpole renal cortical cyst. There are lumbar degenerative disc changes andlower lumbar facet osteoarthropathy. Right hip compression nails arepresent. There are soft tissue calcifications along the margin of theleft greater trochanter. No discrete soft tissue mass identified. IMPRESSION: Diffuse atherosclerotic calcific plaquing. Equivocal stenosis at theorigin of the right renal artery. Focal moderately tight stenosis of theproximal left common femoral artery. No other focal high-grade stenosisidentified. TOTAL CTDIvol: 22.00 mGy POS - [id number] us Ofelia Villasenor MD IMG CT ABD/PELVIS Final R esult documented in this encounter Visit Diagnoses Diagnosis Peripheral vascular disease, unspecified- Primary Peripheral vascular disease, unspecified documented in this encounter Additional Health Concerns Infection Onset Date Last Indicated Resolved Time CoV-Exposed Comment:Close contact 04/30/2020 05/05/2020 05/14/2020 1:25 A M EST CoV-Risk Comment:Per note documentation 09/14/2022 09/14/2022 3 1:18 PM EDT documented as of this encounter Care Teams Car Sales Associate Relationship Specialty Start Date End Date Jamel Mansfield MD [address] [place] [address] [place] [address] PCP - General 03/04/17 documented as of this encounter Additional Source Comments The information contained in this document represents components of the legal health record. It is not the complete legal health record.[facility]
--- OUTSIDE RECORDS SUMMARY | 2025-01-10 11:19 | XMS_ITS | Encounter Summary ---
Author Organization [facility] Address [address] [place] [address] [place] [address] Phone Care Team Providers Care Post Tensioning Ironworker Name Role Phone Jamel Mansfield MD Primary Care Provider [phone] [phone] Encounter Details Date Type Department Care Team (Late st Contact Info) Description 08/13/2022 Procedure Pass [facility] [address] [place] [address] Social History Tobacco Use Types Packs/Day Years [...] Encounters Date Type Department Care Team (Late Contact Info) Description 02/16/2025 3:20 PM EDT Office Visit [facility] [address] [place] [address] 3rd Floor, [address] [place] [address] Darryl Khan MD [address] [place] [address] documented as of this encounter Visit Diagnoses Not on filedocumented in this encounter Additional Health Concerns Infection Onset Date Last Indicated Resolved Time CoV-Risk Comment:Per note documentation 09/14/2022 09/14/2022 1:18 PM EDT documented as of this encounter Care Teams Post Tensioning Ironworker Relationship Specialty Start Date End Date Jamel Mansfield MD [address] [place] [address] [place] [address] PCP - General 03/04/17 documented as of this encounter Additional Source Comments The information contained in this document represents components of the legal health record. It is not the complete legal health record.[facility]
--- OUTSIDE RECORDS SUMMARY | 2025-01-10 11:19 | XMS_ITS | Clinical Summary ---
Author Organization [facility] Address [address] [place] [address] Care Team Providers Care Coil Former Name Role Phone Jamel Mansfield MD Primary Care Provider [phone]- [phone] Social History Tobacco Use Types Packs/Day Years [...] Visual Foot Exam 10/08/2022 Influenza Vaccine (#1) 2025 02/09/2018 Hepatitis B Vaccine Aged Out No longe r eligible based on patient's age to complete this topic Insurance Medicare [facility] Care Teams Coil Former Relationship Specialty Start Date End Date Jamel Mansfield MD [address] [place] [address] [address] [place] [address] PCP - General Internal Medicine 10/08/22
--- OUTSIDE RECORDS SUMMARY | 2025-01-10 11:19 | XMS_ITS | Encounter Summary ---
Author Organization [facility] Address [facility] [address] [place] [address] Phone Care Team Providers Care Professor Of Fine Art Name Role Phone Jamel Mansfield MD Primary Care Provider [phone] [phone] Encounter Details Date Type Department Care Team (Late st Contact Info) Description 09/25/2022 Procedure Pass [facility], Ct Scan - [address] [address] Social History Tobacco Use Types Packs/Day Years Used Date Smoking Tobacco: Former Smokeless Tobacco: Never Alcohol Use Standard Drinks/Week Comments Yes 0 (1 standard drink = 0.6 oz pur e alcohol) Education Answer Date Recorded Are you interested in more education? Not on benita e 09/11/2022 Are you concerned about learning? Not on file 09/11/2022 No 09/11/2022 No 09/11/2022 Intimate Partner Violence Answer Date R ecorded Are you denied basic needs s uch as food, clothing, or medical care? No 09/14/2022 In the past 12 months have y ou been in a relationship with a person who hurts, threatens, or tries to control you? No 09/14/2022 Are you denied basic needs s uch as food, clothing, or medical care? No 09/14/2022 In the past 12 months have y ou been in a relationship with a person who hurts, threatens, or tries to control you? No 09/14/2022 Comments No Sex and Gender Information Value Date Recorded Sex Assigned at Not on file Legal Sex Female 10:12 PM EDT Gender Identity Not on file Sexual Orientation Not on file documented as of this encounter Plan of Treatment Upcoming Encounters Date Type Department Care Team (Late st Contact Info) Description 02/16/2025 3:20 PM EDT Office [facility] [address], [address] [place] [address] Darryl Khan MD [address] [place] [address] [email or web address] documented as of this encounter Visit Diagnoses Not on filedocumented in this encounter Care Teams Professor Of Fine Art Relationship Specialty Start Date End Date Jamel Mansfield MD [address] [place] [address] [address] PCP - General 03/04/17 documented as of this encounter Additional Source Comments The information contained in this document represents components of the legal health record. It is not the complete legal health record.[facility]
--- OUTSIDE RECORDS SUMMARY | 2025-01-10 11:19 | XMS_ITS | Patient Health Record ---
Author Organization [facility] Address [address] [place] [address] Care Team Providers Care Welfare Worker Name Role Phone Donal BELTRÁN, Jamel Primary Care Provider Steven Irving Unavailable [phone] Allergies Allergen (clinical drug ingredient) Drug/Non Drug Allergy documented on EMR Reaction Allergy Type Onset Date Status Penicillin Unknown Drug Allergy Active contrast dye (uncoded) Unknown Allergy Active Results Component Value Reference Range Notes MAMMOGRAM DIGITAL BILATERAL SCREEN Reviewed date:03/08/2024 01:31:20 PM Interpretation:Normal Performing Lab: Notes/Report: Normal GI PANEL Reviewed date:04/25/2024 09:24:57 PM Interpretation: Performing Lab:[facility], [address] [place] [address] Notes/Report: Campylobacter Not Detected Not Detect. Plesiomonas [...] is performed by Multiplexed PCR, utilizing the [employer]im[employer] Multimedia Array. CT abdomen pelvis wo con (No t yet reviewed by provider) Interpretation: Performing Lab: Notes/Report: [place] [address] [address] Scan Report Signed Patient: Alice Carter MR#: [id number] [birth year] : 1940 Acct:[id number] Age/Sex: 83 / F ADM Date: 06/02/24 Loc: .CT Attending Dr: Steven Haji MD Ordering Physician: Steven Haji MD Date of Service: 06/02/24 Procedure(s): CT abdomen pelvis wo IV con Accession Number(s): [id number] cc: Jamel Mansfield MD; Setven Haji MD Report Number: [id number]: Total DLP = 756.00 mGy-cm EXAMINATION: CT [...] by: Steven Casey MD 06/05/2024 08:42 AM [facility] Dictated By: Steven Casey MD Signed By: <Electronically signed by Steven Casey MD in OV> 06/05/24 0842 DD/ 1530 TD/TT: 06/02/24 1738 Hand Singer: Reason For Referral No Information Medications Medication [...] Status W/U Status Risk Notes Problem Diarrhea (88801050) Diarrhea, unspecified (R19.7) Active confirmed Problem 438111202 Gastroesophageal reflux disease, esophagitis presence not specified (K21.9) Active confirmed Problem 91302560 Heme + stool (R19.5) Active confirmed Problem Anemia (148602786) Anemia (D64.9) Active confirmed Problem 501632926 Iron deficiency anemia due to chronic blood loss (D50.0) Active confirmed Problem 947945881 Microcytic anemi a (D50.9) Active confirmed Problem 064449132 Angiodysplasia o f colon (K55.20) Active confirmed Problem 30223830 Iron deficiency anemia, unspecified iron deficiency anemia type (D50.9) Active confirmed Problem 86990254 Diarrhea, unspecified type (R19.7) Active confirmed Problem Chronic diarrhea (733178817) Chronic diarrhea (K52.9) Active confirmed Problem 82676522 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) Active confirmed Problem Pancreatic insufficiency (18734824) Pancreatic insufficiency (K86.89) Active confirmed Problem Incontinence of feces (27402194) Fecal soiling due to fecal incontinence (R15.9) Active confirmed Vital Signs Temperature 95.5 degrees Fahrenheit 03/08/2024 Blood pressure diastolic 72 mm Hg 03/08/2024 Height 62.5 in 03/08/2024 Blood pressure systolic 118 mm Hg 03/08/2024 Weight 189 lb 6 oz lbs 03/08/2024 BMI 34.08 kg/m2 03/08/2024 Encounters Encounter Location Date Provider Diagnosis [facility] [address] [place] [address] 03/08/2024 Steven Haji Gastroesophageal ref lux disease, esophagitis presence not specified K21.9 ; Iron deficiency anemia, unspecified iron deficiency anemia type D50.9 ; Chronic diarrhea K52.9 and Pancreatic insufficiency K86.89 [facility] [address] [place] [address] 03/19/2024 Steven Haji Assessments Encounter Date Diagnosis [...] 12/06/2023 Ova and Parasite 11/30/2023 GI PANEL 03/08/2024 GI PANEL 11/30/2023 GI PANEL 12/06/2023 Future Test Test Name Order Date UPPER GI ENDOSCOPY 04/18/2014 UPPER GI ENDOSCOPY 05/02/2016 COLONOSCOPY 05/02/2016 UPPER GI ENDOSCOPY 01/27/2022 COLONOSCOPY 01/27/2022 Next Appt Details Provider Name:Steven Haji , 03/20/2025 01:00:00 PM, [address] [place] [address], [address], [place], [address], Insurance Providers Payer Name Payer Address Payer Phone Subscriber Number Group Number Insured Name Patient Relationship to Insured Coverage Start Date Coverage End Date MEDICARE OF [place] [address] [place] [address] [phone] [id number] ALICE CARTER Self - patient is the insured [facility] [address] [place] [address] [phone] [id number] ALICE CARTER Self - patient is the insured Medical (General) History Medical History History ICD Code 10/25/2009 Colonoscopy--neg except for h yperplastic polyps--no IBD Tubular adenomas removed in 2002 GERD-EGD in 1997--HH, but ot herwise negative; EGD 05/2014 small HH, no esophagitis, small area of Aguilera's--no dysplasia Depression Hyperlipidemia NIDDM COPD Hypertension Denies OR,CVA,renal disease Microcytic anemia in 2015--h emoglobin 10.8 [...] stenosis. She is being followed by a steel inspector Hospitalized 01/2022 for recu rrent anemia--Hgb 7.7 [...] as described by the patient-Dr. Siddiqi at [facility] 08/14/2020 and 11/2020 Hospitalization History Reason Date(Month/Year) Hospitalized for 2 weeks due to pneumonia, CHF, and Afib, and then rehab for 2 weeks. Spring 2022
--- OUTSIDE RECORDS SUMMARY | 2025-01-10 11:19 | XMS_ITS | Encounter Summary ---
Author Organization [facility] Address [facility] [address] [place] [address] Phone Care Team Providers Care Manager Linux Name Role Phone Jamel Mansfield MD Primary Care Provider [phone] -[phone] Encounter Details Date Type Department Care Team (Late st Contact Info) Description 09/28/2022 Procedure Pass [facility] [address] [place] [address] Social History Tobacco Use Types Packs/Day Years [...] Description 02/16/2025 3:20 PM EDT Office Visit [facility] [address] [place] [address] 3rd Floor, [address] [place] [address] Darryl Khan MD [address] [place] [address] [email or web address] documented as of this encounter Visit Diagnoses Not on filedocumented in this encounter Care Teams Manager Linux Relationship Specialty Start Date End Date Jamel Mansfield MD [address] [place] [address] [address] PCP - General 03/04/17 documented as of this encounter Additional Source Comments The information contained in this document represents components of the legal health record. It is not the complete legal health record.[facility]
--- OUTSIDE RECORDS SUMMARY | 2025-01-10 11:19 | XMS_ITS | Encounter Summary ---
Author Organization [facility] Address [facility] [address] [place] [address] Phone Care Team Providers Care Field Support Rep Name Role Phone Jamel Mansfield MD Primary Care Provider +1 [phone] Encounter Details Date Type Department Care Team (Late st Contact Info) Description 04/24/2020 Procedure Pass [facility] [place] [place] [address] Social History Tobacco Use Types Packs/Day Years [...] Description 02/16/2025 3:20 PM EDT Office Visit [facility] [address] [place] [address] 3rd Floor, [address] [place] [address] Darryl Khan MD [address] [place] [address] [email or web address] documented as of this encounter Visit Diagnoses Not on filedocumented in this encounter Additional Health Concerns Infection Onset Date Last Indicated Resolved Time CoV-Exposed Comment:Close contact 04/30/2020 05/05/2020 05/14/2020 1:25 AM EST CoV-Risk Comment:Per note documentation 09/14/2022 09/14/2022 3 1:18 PM EDT documented as of this encounter Care Teams Field Support Rep Relationship Specialty Start Date End Date Jamel Mansfield MD [address] [place] [address] [place] [address] PCP - General 03/04/17 documented as of this encounter Additional Source Comments The information contained in this document represents components of the legal health record. It is not the complete legal health record.[facility]
--- OUTSIDE RECORDS SUMMARY | 2025-01-10 11:19 | XMS_ITS | Encounter Summary ---
Author Organization [facility] Address [address] [place] [address] [address] [place] [address] Phone Care Team Providers Care Foundry Operator Name Role Phone Jamel Mansfield MD Primary Care Provider +1 -[phone] Encounter Details Date Type Department Care Team (Late st Contact Info) Description 07/23/2020 Procedure Pass [facility] [address] [place] [address] Social History Tobacco Use Types Packs/Day Years [...] Description 02/16/2025 3:20 PM EDT Office Visit [facility] [address] [place] [address] 3rd Floor, [address] [place] [address] Darryl Khan MD [address] [place] [address] [email or web address] documented as of this encounter Visit Diagnoses Not on filedocumented in this encounter Additional Health Concerns Infection Onset Date Last Indicated Resolved Time CoV-Risk Comment:Per note documentation 09/14/2022 09/14/2022 3 1:18 PM EDT documented as of this encounter Care Teams Foundry Operator Relationship Specialty Start Date End Date Jamel Mansfield MD [address] [place] [address] [place] [address] PCP - General 03/04/17 documented as of this encounter Additional Source Comments The information contained in this document represents components of the legal health record. It is not the complete legal health record.[facility]
--- OUTSIDE RECORDS SUMMARY | 2025-01-10 11:19 | XMS_ITS | Encounter Summary ---
Author Organization [facility] Address [address] [place] [address] [address] [place] [phone] Phone Care Team Providers Care Consulting Utility Forester Name Role Phone Jamel Mansfield MD Primary Care Provider [phone] Encounter Details Date Type Department Care Team (Late st Contact Info) Description 07/16/2021 Procedure Pass Echo Lab [place] [place] [address] Social History Tobacco Use Types Packs/Day Years [...] Description 02/16/2025 3:20 PM EDT Office Visit [facility] [address] [place] [address] [address]rd Floor, [address] [place] [address] Darryl Khan MD [address] [place] [address] [email or web address] documented as of this encounter Visit Diagnoses Not on filedocumented in this encounter Additional Health Concerns Infection Onset Date Last Indicated Resolved Time CoV-Risk Comment:Per note documentation 09/14/2022 09/14/2022 3 1:18 PM EDT documented as of this encounter Care Teams Consulting Utility Forester Relationship Specialty Start Date End Date Jamel Mansfield MD [address] [place] [address] [place] [address] PCP - General 03/04/17 documented as of this encounter Additional Source Comments The information contained in this document represents components of the legal health record. It is not the complete legal health record.[facility]
--- OUTSIDE RECORDS SUMMARY | 2025-01-10 11:19 | XMS_ITS | Encounter Summary ---
Author Organization [facility] Address [facility] [address] [place] [address] Phone Care Team Providers Care Clay Digger Name Role Phone Jmael Mansfield MD Primary Care Provider [phone] Encounter Details Date Type Department Care Team (Late st Contact Info) Description 02/16/2024 Procedure Pass Echo Lab [place] [place] [address] Social History Tobacco Use Types Packs/Day Years Used Date Smoking Tobacco: Former Smokeless Tobacco: Never Alcohol Use Standard Drinks/Week Comments Yes 0 (1 standard drink = 0.6 oz pur e alcohol) Education Answer Date Recorded Are you interested in more education? Not on benita e 09/11/2022 Are you concerned about learning? Not on file 09/11/2022 No 09/11/2022 No 09/11/2022 Digital Access Answer Date Recorded No 10/07/2022 No 10/07/2022 Reliable internet access at home? Not on file 10/07/2022 Device with a working camera? Not on file Intimate Partner Violence Answer Date R ecorded [...] Description 02/16/2025 3:20 PM EDT Office Visit [facility] [address] [place] [address] [address], [address] [place] [address] Darryl Khan MD [address] [place] [address] documented as of this encounter Visit Diagnoses Not on filedocumented in this encounter Care Teams Clay Digger Relationship Specialty Start Date End Date Jamel Mansfield MD [address] [place] [address] Dr [address] [place] [address] PCP - General 03/04/17 documented as of this encounter Additional Source Comments The information contained in this document represents components of the legal health record. It is not the complete legal health record.[facility]
--- OUTSIDE RECORDS SUMMARY | 2025-01-10 11:20 | XMS_ITS | Encounter Summary ---
Author Organization [facility] Address [address] [place] [address] Phone Care Team Providers Care Precipitator Name Role Phone Jamel Mansfield MD Primary Care Provider [phone] Encounter Details Date Type Department Care Team (Late st Contact Info) Description 01/09/2025 Orders Only [facility] [address], [address] [place] [address] Ashley Hernandez, SALES PROMOTION REPRESENTATIVE [address] [place] [address] [email or web address] Social History Tobacco Use Types Packs/Day Years [...] as food, clothing, or medical care? No 06/21/2024 In the past 12 months have y ou been in a relationship with a person who hurts, threatens, or tries to control you? No 06/21/2024 Are you denied basic needs s uch as food, clothing, or medical care? No 06/21/2024 In the past 12 months have y ou been in a relationship with a person who hurts, threatens, or tries to control you? No 06/21/2024 Comments No Sex and Gender Information Value Date Recorded Sex Assigned at Not on file Legal Sex Female 10:12 PM EDT Gender Identity Not on file Sexual Orientation Not on file documented as of this encounter Plan of Treatment Upcoming Encounters Date Type Department Care Team (Late st Contact Info) Description 02/16/2025 3:20 PM EDT Office Visit [facility] [address] [facility] 3rd Floor, [address] [place] [address] Darryl Khan MD [address] [place] [address] [email or web address] documented as of this encounter Visit Diagnoses Not on filedocumented in this encounter Care Teams Precipitator Relationship Specialty Start Date End Date Jamel Mansfield MD [address] [place] [address] [address] PCP - General 03/04/17 documented as of this encounter Additional Source Comments The information contained in this document represents components of the legal health record. It is not the complete legal health record.[facility]
--- OUTSIDE RECORDS SUMMARY | 2025-01-10 11:20 | XMS_ITS | Encounter Summary ---
Author Organization [facility] Address [address] [place] [address] Phone Care Team Providers Care Customer Loyalty Representative Name Role Phone Jamel Mansfield MD Primary Care Provider [phone] Encounter Details Date Type Department Care Team (Late st Contact Info) Description 01/02/2025 Orders Only [facility] [address] [facility] 3rd Floor, [address] [place] [address] Ashley Hernandez, RECRUITING INTERN [address] [place] [address] Social History Tobacco Use Types Packs/Day Years [...] Description 02/16/2025 3:20 PM EDT Office Visit [facility] [address] [facility] [address] Floor, [address] [place] [address] Darryl Khan MD [address] [place] [address] documented as of this encounter Visit Diagnoses Not on filedocumented in this encounter Care Teams Customer Loyalty Representative Relationship Specialty Start Date End Date Jamel Mansfield MD [address] [place] [address] [address] PCP - General 03/04/17 documented as of this encounter Additional Source Comments The information contained in this document represents components of the legal health record. It is not the complete legal health record.[facility]
--- OUTSIDE RECORDS SUMMARY | 2025-01-10 11:20 | XMS_ITS | Clinical Summary ---
Author Organization [facility] Address [address] [place] [address] [address] [place] [phone] Phone Care Team Providers Care Whipper Name Role Phone Jamel Mansfield MD Primary Care Provider [phone] Allergies Active Allergy Reactions Criticality Noted Date Comments Iodinated Contrast Media Hives 09/04/2017 Penicillins Hives 09/04/2017 Medications lansoprazole (PREVACID) 30 MG capsule Take 1 capsule by mouth daily. Active traZODone (DESYREL) 50 MG tablet Orally Once a day Active montelukast (SINGULAIR) 10 mg tablet Take 1 tablet by mouth every evening. Active ferrous sulfate 325 mg (65 mg chenega iron) tablet Take 325 mg by mouth daily. Active mirtazapine (REMERON) 15 MG tablet TAKE 1 TABLET BY MOUTH AT BEDTIME DAILY. INCREASE IN DOSE. 0 Active allopurinol (ZYLOPRIM) 100 MG tablet Take 100 mg by mouth daily. 1 Active atorvastatin (LIPITOR) 80 MG tablet Take 1 tablet (80 mg total) by mouth daily. 90 tablet 3 1 Active magnesium oxide 400 mg magnesium Tab Take 400 mg by mouth daily. 1 Active cholecalciferol (VITAMIN D3) 2,000 unit capsule Take 2,000 Units by mouth daily. 1 Active SITagliptin phosphate (JANUVIA) 100 MG tablet Take 100 mg by mouth daily. 2 Active citalopram (CELEXA) 20 MG tablet Take 20 mg by mouth daily. 2 Active glimepiride (AMARYL) 1 MG tablet TAKE 1 TABLET BY MOUTH IN THE MORNING WITH BREAKFAST 3 Active fluticasone propion-salmeter oL (ADVAIR DISKUS) 250-50 mcg/dose DISKUS Inhale 250 mcg/actuation of fluticasone into the lungs. Active guaiFENesin (ROBITUSSIN) 100 mg/5 mL syrup Take 10 mL (200 mg total) by mouth every 4 (four) hours as needed for congestion. 120 mL 3 Active melatonin 3 mg Tab Take 2 tablets (6 mg total) by mouth nightly at bedtime as needed. 3 Active warfarin (COUMADIN) 2.5 MG tablet Take 1 tablet (2.5 mg total) by mouth daily. Wednesday, Wednesday, Wednesday and 5 mg Wednesday, Wednesday, and Wednesday 3 Active umeclidinium bromide (INCRUSE ELLIPTA INHL) Inhale 62.5 mcg into the lungs. Active nystatin (NYSTOP) powder as needed. 3 Active BREO ELLIPTA 200-25 mcg/dose inhaler INHALE 1 PUFF DAILY FOR COPD FOR 30 DAYS 4 Active diphenoxylate-at ropine (LOMOTIL) 2.5-0.025 mg per tablet daily. 4 Active DILT-XR 240 mg 24 hr capsuleIndicatio ns:Medicine refill TAKE 1 CAPSULE BY MOUTH EVERY DAY 90 capsule 4 5 Active dapagliflozin propanediol (FARXIGA) 5 mg tablet Take by mouth daily. Active cyanocobalamin (VITAMIN B-12) 500 mcg/spray Jessie 500 mcg by Right Nare route. Active potassium chloride (MICRO-K) 10 mEq CR capsule 2 tab every other day 180 capsule 1 5 Active torsemide (DEMADEX) 20 MG tabletIndication s:Chronic diastolic heart failure TAKE 1 TABLET BY MOUTH 2 (TWO) TIMES A DAY (ONCE IN THE MORNING AND ONCE IN THE AFTERNOON). 180 tablet 5 Active Additional Information Patient taking differently: Every other day, Reported on 11/27/2024 spironolactone (ALDACTONE) 25 MG tablet TAKE 1 TABLET (25 MG TOTAL) BY MOUTH DAILY. 90 tablet 1 5 Active warfarin (COUMADIN) 5 MG tabletIndication s:Persistent atrial fibrillation TAKE 1 TABLET (5 MG TOTAL) BY MOUTH DAILY. 90 tablet 3 5 Active metoprolol succinate (TOPROL-XL) 25 MG 24 hr tablet TAKE 3 TABLETS BY MOUTH DAILY 270 tablet 1 5 Active Active Problems Problem Noted Date Diagnosed Date Valvular heart disease 11/27/2024 Assessment & Plan (11/27/2024 3:09 PM EDT): She has moderate aortic stenosis/moderate AI, severe mitral stenosis/moderate mitral regurgitation. Ongoing symptoms of exertional dyspnea which really limit her daily activity. Currently euvolemic on exam. Previously was deemed not to be a surgical candidate for valve repair through [facility]. She declined obtaining a second opinion, she is not interested in undergoing open heart surgery at her age. We did discuss potential for TAVR versus enrollment in [place] trial with possible TMVR. The exact inclusion criteria for undergoing the TMVR are not clear to me. She would be interested in consideration of TAVR/TMVR if this were to be an option. Case was discussed with Dr. Harden who had recommended getting her set up with Dr. Thurston for further evaluation. Will get her set up with Dr. Thurston for further evaluation for possible TAVR/TMVR although this would likely require referral to an outside network if she were deemed to be a candidate Elevated WBCs 09/28/2022 Assessment & Plan (09/30/2022 9:20 AM EDT): WBC down to 12 K as of yesterday. Continues to be afebrile. Recommend If patient is able to bring up sputum sent to lab for culture. Diuretics per cardiology Patient is currently off antibiotics and doing well ID will sign off please call if problems or questions arise I attest that I spent 25 minutes assessing the patient and documenting my findings Dyspnea 09/28/2022 Anxiety and depression 09/27/2022 Assessment & Plan (09/29/2022 3:12 PM EDT): - Tolerating hydroxyzine. - Continue Remeron, Celexa and Trazdone. -Behavioral therapy recommends patient has no suicidal and homicidal ideations, recommended follow up outpatient therapist weekly. Multifocal pneumonia 09/14/2022 Assessment & Plan (09/29/2022 3:06 PM EDT): Her Chest x-ray on admission showed multifocal infiltrates. Her WBC was elevated to 19.8 and lactate was elevated to 2.7. She is now on RA. 3 days of azithromycin completed. Rpt x ray 09/22 showed improvement. Completed 7 days of cefepime, 09/23. Off O2 WCC remains high , procal 0.16. -Chest CT shows mild stable contiguous lung opacities in the right upper lobe and left lower lobe could represent multifocal pneumonia, trace bilateral pleural effusions, moderate cardiomegaly. -Pulmonary thinks patient evaluated white cell count possible due to steroids, does not need another course of antibiotics. Pulmonary recommends ID consultation and urine analysis. ID recs As it is unclear whether this is due to infection or a delayed response to recent steroid use, recommend against initiation of antibiotic at this time. I ordered blood cultures x2.Repeat legionella testing ordered. Viral respiratory panel ordered. If pt is able to produce specimen, would also recommend sending for sputum culture. DM2 (diabetes mellitus, type 2) 09/14/2022 Assessment & Plan (09/28/2022 2:47 PM EDT): At home patient is on Januvia and glimepiride which were held on admission. BS slightly elevated, likely due to steroids A1c 6.1. -Continue lantus 20 U daily -Monitor point of care, cover with insulin sliding scale as needed PAF (paroxysmal atrial fibrillation) 09/14/2022 Assessment & Plan (11/27/2024 3:10 PM EDT): Heart rate irregular on exam today rate 63 bpm Continue Coumadin Metoprolol succinate 75 mg daily Continue diltiazem 240 mg daily Assessment & Plan (09/29/2022 3:09 PM EDT): I -INR is 2.9 on 09/29 -Monitor INR daily and adjust coumadin. -Cardiology recs 1. Lower extremity edema and shortness of breath: She also has a elevated BNP I would at least restart her home dose of torsemide and probably increase it temporarily. I realize that she had an elevated creatinine and was thought to be prerenal. 2. PAF: increase metoprolol to 100 mg daily and to decrease Cardizem to 240 mg daily. 3. Oral anticoagulation: Getting this without any difficulty and without bleeding complications. 4. Valvular heart disease: Nothing severe enough to warrant an intervention surgical or percutaneous Acute kidney injury superimposed on chronic kidn ey disease 09/14/2022 Assessment & Plan (09/29/2022 3:10 PM EDT): Creatinine has been bouncing around with intermittent torsemide dosing. Her baseline is 1.2-1.3. -Hold valsartan,and allopurinol - Continue torsemide at 10 mg daily since 09/26. - Cr going up Renal recs . Stage I MARBELLA in setting of multifocal pneumonia, numerous abx exposures, and underlying aortic stenosis - ddx of septic ATN complicated by hypoperfusion injury, CRS (doubt), AIN from abx, vanc tubular injury (doubt), obstructive uropathy - will send off UA with microscopy - continue torsemide for now - low threshold to ask cardiology to echo this complex patient to aid in volume assessment - daily bladder scan PVF - vanc levels monitoring per pharmacy and ID - dosing meds for eGFR < 45 mL/min - agree with holding ARB for now Malaise and fatigue 09/02/2022 Chronic heart failure with preserved ejection fr action 09/02/2022 Assessment & Plan (11/27/2024 3:12 PM EDT): Has stable symptoms of dyspnea on exertion which are quite limiting to her daily activity. Currently denying any leg swelling orthopnea. Continue torsemide 20 mg every other day Continue Farxiga 5 mg daily Continue Aldactone 25 mg daily Assessment & Plan (09/26/2022 3:54 PM EDT): Has complained of symptoms of orthopnea, has had intermittent torsemide dosing due to intermittently elevated creatinine (appears to elevate after diuretic use). 1+ lower extremity edema, torsemide on hold, she did receive a liter of IV fluids on 09/22. Was given a dose of torsemide 09/24 with good response. Creatinine now back up to 1.5, restart torsemide 10 mg fdaily -Patient was at [facility] at the end of July with CHF exacerbation and was started on torsemide, which was held on admission as patient appeared dehydrated due to vomiting and diarrhea and has MARBELLA Recent echo showed /MS with a normal EF. Bilateral carotid artery disease 07/23/2020 Assessment & Plan (02/16/2022 4:00 PM EDT): She has bilateral carotid artery disease. She is followed by Dr. Contreras. Continue with atorvastatin, aspirin, Plavix. Assessment & Plan (07/23/2020 1:41 PM EST): She had a carotid ultrasound showing bilateral carotid artery stenosis with a 50 to 79% stenosis on the right and 16 to 49% stenosis on the left. We will continue to optimize her risk factors. Her blood pressure today is at goal. I am not sure about her lipids as I do not have a recent lipid panel. We are trying to obtain a lipid panel from the [facility] system. Goal LDL is less than 70. She will bring these results to her vascular surgeon and she will require every 6 month ultrasounds to monitor her carotid artery disease. Visual changes 04/24/2020 Assessment & Plan (04/24/2020 4:10 PM EST): I hear loud carotid bruits bilaterally. She tells me that she occasionally has visual disturbances which started about 2 years ago. I would like her to have a carotid ultrasound. Follow-up with her after testing. Peripheral vascular disease 04/24/2020 Assessment & Plan (11/27/2024 3:11 PM EDT): She has stable symptoms of claudication. I recommended she follow-up with [facility] vascular who has been managing this as she has not seen them in a while. Assessment & Plan (09/27/2022 1:48 PM EDT): -Patient was previously on Plavix was discontinued as she has been recently started on full anticoagulation with Coumadin for A-fib. Assessment & Plan (02/16/2022 4:00 PM EDT): She has severe peripheral vascular disease for which she follows with Dr. Contreras. She had an intervention and told me that she was told that the blockages are once again worsening. She will continue to follow-up with Dr. Contreras. Assessment & Plan (04/24/2020 4:11 PM EST): She has severe peripheral vascular disease for which she follows with Dr. Contreras. She does have a lot of claudication. The patient actually tells me that she was supposed to have stents placed but this procedure is on hold due to Covid. Continue with risk factor optimization. Blood pressure is normal. She is appropriately on a statin. I did ask her to start taking a baby aspirin. Nonrheumatic mitral valve stenosis 05/01/2019 Assessment & Plan (02/16/2022 3:59 PM EDT): The patient has severe mitral regurgitation. She met with Dr. Hannah 6 months ago and he suggested that she have another echocardiogram. I will order another echocardiogram and have her follow-up with Dr. Nance after that. Most recent echocardiogram in July showed moderate mitral regurgitation with severe mitral stenosis. Assessment & Plan (07/23/2020 1:37 PM EST): She recently had an echocardiogram showing moderate mitral stenosis. We will obtain routine echocardiograms. She will get an echocardiogram prior to his 6-month follow-up with Dr. HANNAH. Assessment & Plan (04/24/2020 4:09 PM EST): She has known valvular disease with mitral regurgitation and moderate mitral stenosis. I would like her to have a routine echocardiogram. This has been ordered. PSVT (paroxysmal supraventricular tachycardia) 0 11/30/2018 Assessment & Plan (02/16/2022 3:59 PM EDT): She has a history of paroxysmal SVT which was diagnosed in 2018. No recent episodes. Continue with diltiazem. Assessment & Plan (07/23/2020 1:37 PM EST): She has a history of paroxysmal SVT which was diagnosed in 2019. She has not had any recent episodes of SVT. Several months ago, she did report an episode of possible SVT with palpitations and jaw pain. She has not had a recurrence of that. Continue diltiazem for suppression of her arrhythmia. Assessment & Plan (04/24/2020 4:08 PM EST): She was initially diagnosed with SVT in 2019. She has done well with the diltiazem. She had one brief episode of SVT while walking up a flight of stairs recently. She reports that the episode was very brief. She should continue her current dose of diltiazem. 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 Patient has had 20+ years of vaginal bleeding related to this. Is not interested in pursuing excision. Assessment & Plan (06/14/2018 4:25 PM EST): Will continue to monitor. Can remove exposed mesh and repair vagina prn symptoms. Vulvar lump 06/14/2018 Overview (06/14/2018): 1 cm right vulva/labia majora cystic lesion most consistent with sebaceous cyst. It is smooth and mobile feels more superficial than lymph node. Assessment & Plan (06/14/2018 4:27 PM EST): The patient was reassured that this is not a dangerous finding. It could be excised as needed for symptoms. Arthritis 11/09/2017 Chest pain 11/09/2017 Assessment & Plan (07/23/2020 1:38 PM EST): She reported an episode of jaw pain which was associated with a very high heart rate, probably her SVT. She had that several months ago. She has not had a recurrence of any chest or jaw pain. Her nuclear stress test was normal. It is unlikely that her symptom was due to ischemia. She will let us know if she has a recurrence of that. Assessment & Plan (04/24/2020 4:09 PM EST): She had an episode of jaw pain during a suspected SVT episode while walking up a flight of stairs. She has multiple risk factors for CAD. She has a lot of shortness of breath. I would like her to have a nuclear stress test for risk stratification. She can try to walk on the treadmill but this may need to be converted to a pharmacologic. I have asked her to refrain from caffeine intake for 12 hours. She should hold her diltiazem for the morning of the test. I have asked her to bring it with her to the office. Chronic obstructive pulmonary disease 11/09/2017 Assessment & Plan (09/28/2022 2:41 PM EDT): Continues to complain of dyspnea. She was being treated for mild to moderate COPD exacerbation initially with scheduled bronchodilators and prednisone however she was not feeling relief from bronchodilators these were discontinued. -Continue Advair and Singulair -cont pred 5mg daily. -cont prn alb -Continue Spiriva daily. Mixed hyperlipidemia 11/09/2017 Assessment & Plan (02/16/2022 4:00 PM EDT): Continue atorvastatin. Assessment & Plan (07/23/2020 1:38 PM EST): Unfortunately, I do not see a lipid panel in our system. She tells me she has them checked frequently at her PCP office in the [facility] system. I have discussed with her that given her extensive peripheral arterial disease, she should have an LDL of less than 70. We will try to obtain a lipid panel from [facility]. She is on 40 mg of atorvastatin. Continue this dose unless her LDL is not at goal then it will need to be increased. HTN (hypertension) 11/09/2017 Assessment & Plan (11/27/2024 3:11 PM EDT): Blood pressure well-controlled on current medications Assessment & Plan (09/28/2022 2:43 PM EDT): BP stable Continue to hold Valsartan, Continue torsemide 10 mg daily. Palpitations 11/09/2017 Resolved Problems Problem Noted Date Diagnosed Date Resolved Date Gastroenteritis 09/14/2022 09/23/2022 Assessment & Plan (09/19/2022 2:05 PM EDT): -Patient reports 6-7 episodes of diarrhea in the past 24 hours and 5 episodes of vomiting -Now resolved Encounters Date Type Department Care Team Description 01/09/2025 Orders Only [facility] [address] [facility], [address] [place] [address] Ashley Hernandez CNP 01/02/2025 Orders Only [facility] [address] [facility], [address] [place] [address] Ashley Hernandez CNP 12/01/2024 Telephone [facility] [address] [facility], [address] [place] [id number] Wiliam Briggs TAVR/TMVR Referral 11/27/2024 2:30 PM EDT Office Visit [facility] [address] [facility], [address] [place] [address] Ashley Hernandez CNP Valvular heart disease (Primary Dx); PAF (paroxysmal atrial fibrillation); Peripheral vascular disease; Primary hypertension; Chronic heart failure with preserved ejection fraction 11/27/2024 Telephone [facility] [address] [facility], [address] [place] [address] Wiliam Briggs 11/17/[address] [facility], [address] [place] [address] Thomas Nance MD Medication Refill from Last 3 Months Immunizations Immunization Administration Dates Next Due Influenza High-Dose Trivalent Preservative Free IM 02/09/2018 Pneumococcal conjugate PCV13 02/09/2018 Family History Medical History Relation Comments Hyperlipidemia Father Stroke Father Heart disease Maternal Grandfather Colon cancer Maternal Grandmother Heart defect Mother Hypertension Mother Heart disease Paternal Grandfather Breast cancer Paternal Grandmother Relation Status Comments Father Maternal Grandfather Maternal Grandmother Mother Paternal Grandfather Paternal Grandmother Social History Tobacco Use Types Packs/Day Years Used Date Smoking Tobacco: Former Smokeless Tobacco: Never Tobacco Cessation:Counseling Given: Not Answered Alcohol Use Standard Drinks/Week Comments Yes 0 [...] on file Sexual Orientation Not on file Last Filed Vital Signs Vital Sign Reading Time Taken Comments Blood Pressure 120/56 11/27/2024 2:30 PM EDT Pulse 63 11/27/2024 2:30 PM EDT Temperature 36.3 C (97.3 F) 06/21/2024 3:27 PM EST Respiratory Rate 18 06/21/2024 3:27 PM EST Oxygen Saturation 95% 11/27/2024 2:30 PM EDT Inhaled Oxygen Concentration - - Weight 82.6 kg (182 lb 3.2 oz) 11/27/2024 2:30 P M EDT Height 157.5 cm (5' 2.01 ) 11/27/2024 2:30 PM ED T Body Mass Index 33.32 11/27/2024 2:30 PM EDT Plan of Treatment Upcoming Encounters Date Type Department Care Team (Late st Contact Info) Description 02/16/2025 3:20 PM EDT Office Visit [facility] [address], [address] [place] [address] Darryl Khan MD [address] [place] [id number] [email or web address] Health Maintenance Due Date Last Done Comments Adult Td,Tdap Booster 1940 DEPRESSION SCREENING 1951 ZOSTER VACCINES (1 of 2) 12/06/1989 OSTEOPOROSIS SCREENING INITIAL (ONE-TIME) 12/06/2004 RSV VACCINE (1 - 1-dose 75+ series) 12/06/2014 PNEUMOCOCCAL VACCINES (50+ years) (2 of 2 - PPSV23) 04/25/2018 02/28/2018, 02/09/2018 DIABETIC EYE EXAM 09/14/2022 HEMOGLOBIN A1C 03/18/2023 09/15/2022 COVID-19 VACCINE ( season) 2024 10/06/2021, 03/14/2021, 07/12/2020, Additional history exists INFLUENZA VACCINE (#1) 2024 , 01/30/2019, 02/09/2018, Additional history exists BLOOD PRESSURE 05/30/2025 11/27/2024 CREATININE LEVEL 06/21/2025 06/21/2024, , 09/29/2022, Additional history exists POTASSIUM LEVEL 06/21/2025 06/21/2024, 09/14, 09/29/2022, Additional history exists HEPATITIS A VACCINES Aged Out No long er eligible based on patient's age to complete this topic HIB VACCINES Aged Out No longer eligi ble based on patient's age to complete this topic MENINGOCOCCAL VACCINES (ACWY) Aged Out No longer eligible based on patient's age to complete this topic MENINGOCOCCAL VACCINES (B) Aged Out N o longer eligible based on patient's age to complete this topic Medical Devices Not on file Procedures Procedure Name Priority Date/Time Associated Diagnosis Comments BASIC METABOLIC PANEL STAT 06/21/2024 1:18 PM EST HEMOGLOBIN A1C Routine 09/15/2022 5:46 AM EDT from Last 3 Months or Most Recently Relevant to Health Maintenance Results * (ABNORMAL) Basic metabolic panel (06/21/2024 1:18 PM EST) SODIUM 139 133 - 146 mmol/L [facility] CHLORIDE 105 96 - 108 mmol/L [facility] POTASSIUM 4.0 3.3 - 5.1 mmol/L [facility] CO2 22 21 - 35 mmol/L [facility] BUN 33(H) 6 - 19 mg/dL [facility] CREATININE 1.60(H) 0.5 - 1.5 mg/dL [facility] GLUCOSE 189(H) 70 - 99 mg/dL [facility] CALCIUM 9.6 8.4 - 10.3 mg/dL [facility] EGFR 32(L) >59 mL/min/1.7 3m2 [facility] Comment:Estimated glomerular filtration rate calculated using the CKD-EPI refit equation. ANION GAP 16 10 - 20 mmol/L [facility] Blood 06/21/2024 1:18 PM EST 06/21/2024 1:20 PM EST us Gaudencio Whitfield MD LAB BLOOD ORDERABLES Final Resul t Performing Organization Address [facility]/ZIP Co de Phone Number [address] [address] * (ABNORMAL) Hemoglobin A1c (09/15/2022 5:46 AM EDT) HEMOGLOBIN A1C 6.1(H) 4.3 - 5.8 % [facility] Blood 09/15/2022 5:46 AM EDT 09/15/2022 6:11 AM EDT us Kayla Alfred DO LAB BLOOD ORDERABLES Final Re sult Performing Organization Address [facility]/ZIP Co de Phone Number [address] [address] from Last 3 Months or Most Recently Relevant to Health Maintenance Insurance [address] [place] [id number] MEDICARE PART A & B MEDICARE SUPPLEMENT [address] [place] [id number] MEDICARE PART A & B MEDICARE SUPPLEMENT [address] [place] [id number] MEDICARE PART A & B MEDICARE SUPPLEMENT MEDICARE PART A & B MEDICARE SUPPLEMENT MEDICARE PART A & B MEDICARE SUPPLEMENT [address] [place] [id number] MEDICARE PART A & [place] [address] MEDICARE SUPPLEMENT [address] [place] [id number] MEDICARE PART A & B MEDICARE SUPPLEMENT [address] [place] [address] MEDICARE PART A & B Member Subscriber Plan / Payer (Ef fective 2004-Present) Name:Alice Martinez Member ID:[id number] Relation to Subscriber:Self Name:Alice Martinez Subscriber ID:[id number] Payer ID:[id number] Group ID:Not on file Type:Medicare Address: [employer] [address] MEDICARE SUPPLEMENT MEDICARE PART A & B MEDICARE SUPPLEMENT Advance Directives For more information, please contact: [phone] (9AM - 5PM [facility], Wednesday-Wednesday) Documents on File Type Date Recorded Patient [employer] Expl anation Power of Film Laboratory Technician Healthcare Proxy 08/20/2020 Healthcare Proxy * Full Code (Latest Code Status on File) Date Activated Date Inactivated Comments 09/14/2022 3:33 PM Question Answer Comments Code Status Confirmed With: Patient Care Teams Whipper Relationship Specialty Start Date End Date Jamel Mansfield MD [address] [place] [address] [place] [id number] PCP - General 03/04/17 Additional Source Comments The information contained in this document represents components of the legal health record. It is not the complete legal health record.[facility]
--- OUTSIDE RECORDS SUMMARY | 2025-01-10 11:20 | XMS_ITS | Encounter Summary ---
Author Organization [facility] Address [address] [place] [address] [address] [place] [id number] Phone Care Team Providers Care Regional Sales Director Name Role Phone Jamel Mansfield MD Primary Care Provider [phone] Encounter Details Date Type Department Care Team (Late st Contact Info) Description 02/16/2022 Procedure Pass Echo Lab [place] [place] [address] Social History Tobacco Use Types Packs/Day Years [...] Description 02/16/2025 3:20 PM EDT Office Visit [facility] [address] [place] [address] [address], [address] [place] [address] Darryl Khan MD [address] [place] [phone] [email or web address] documented as of this encounter Visit Diagnoses Not on filedocumented in this encounter Additional Health Concerns Infection Onset Date Last Indicated Resolved Time CoV-Risk Comment:Per note documentation 09/14/2022 09/14/2022 3 1:18 PM EDT documented as of this encounter Care Teams Regional Sales Director Relationship Specialty Start Date End Date Jamel Mansfield MD [address] [place] [address] [place] [address] PCP - General 03/04/17 documented as of this encounter Additional Source Comments The information contained in this document represents components of the legal health record. It is not the complete legal health record.[facility]
[2025-01-10 13:50] LABS: MANUAL DIFF FLAG NO
[2025-01-10 13:59] LABS: Hematocrit 42.4 % (37.0-47.0); Hemoglobin 13.4 g/dl (12.0-16.0); Imm Gran Abs Auto 0.06 X10*3/uL (0.00-0.03); Imm Gran Pct Auto 0.6 % (0.0-0.4); Lymphocytes Absolute Auto 0.7 X10*3/uL (1.2-4.9); Mean Corpuscular HGB Conc 31.6 g/dl (31.0-35.0); Mean Corpuscular Hemoglobin 29.2 pg (27.0-33.0); Mean Corpuscular Volume 92.4 fL (80.0-98.0); NRBC Abs Auto 0.000 X10*3/uL (0.0-0.012); NRBC Pct Auto 0.0 /100WBC (0.0-0.2); Platelet Count 304 X10*3/uL (160-400); Red Blood Count 4.59 X10*6/uL (4.20-5.50); White Blood Count 9.3 X10*3/uL (4.8-10.8)
[2025-01-10 14:23] LABS: Hemoglobin A1C 184.9212 umol/L; Total Hemoglobin (HGBA1C) 3536.7019 umol/L
[2025-01-10 14:35] LABS: Alanine Aminotransferase 20 U/L (0-31); Albumin Level 4.1 g/dL (3.5-5.0); Alkaline Phosphatase 87 U/L (39-117); Anion Gap 13 (12-20); Aspartate Amino Transferase 22 U/L (5-31); Blood Urea Nitrogen 30 mg/dL (9-16); Calcium 9.7 mg/dL (8.4-10.2); Carbon Dioxide 22 mmol/L (22-29); Chloride 107 mmol/L (96-108); Cholesterol 155 mg/dL (<200); Estimated Glomerular Filt Rate 36; HDL Cholesterol 25 mg/dL (>40); Potassium 4.3 mmol/L (3.3-5.1); Sodium 138 mmol/L (135-145); Total Protein 7.1 g/dL (6.5-8.0); Triglycerides 151 mg/dL (<150)
[2025-01-10 15:16] LABS: Folate 9.4 ng/mL (> or = 4.0); Vitamin B12 > 2000 pg/mL (200-900)
[2025-01-10 15:41] LABS: Free T4 (Free Thyroxine) 1.16 ng/dL (0.71-1.85)
[2025-01-10 17:57] LABS: Microalbum/Creatinine Ratio Ur 24.0 ug/mg cr (<30)
[2025-01-10 19:34] LABS: Appearance Urine Clear; Glucose Urine UA 500 mg/dL (Negative); PH 6.0 (5.0-9.0); Specific Gravity - Urine 1.020 (1.005-1.025)
== END 2025-01-10 10:26 | disposition home or self-care (01) ==
LOC: HO.HMGCLDS 10:25
PROVIDERS: PCP Internal Medicine; Visit Provider Internal Medicine
DX: E53.8 Deficiency of other specified B group vitamins (principal); E11.9 Type 2 diabetes mellitus without complications; R30.0 Dysuria; E78.00 Pure hypercholesterolemia, unspecified; E55.9 Vitamin D deficiency, unspecified; D64.9 Anemia, unspecified
CPT/HCPCS: 36415; 80053; 80061; 81003; 82043; 82306; 82570; 82607; 82746; 83036; 84439; 84443; 85025

== ENCOUNTER 2025-01-16 14:33 | Outpatient (AMB) | payer MEDICARE, OTHER, SELFPAY ==
--- NOTE | 2025-01-16 14:39 | A.OFFPC_ITS ---
Vital Signs 01/16/25 14:40 Height 5 ft 2 in Weight 182 lb 6 oz BMI 33.4 BP 108/62 Blood Pressure Location Lt popliteal Position Sitting Pulse 60 Pulse Oximetry (%) 93 Oxygen Delivery Method Room Air Intake Visit Reasons: DM, COPD, hyperlipidemia, CKD, HTN, OA Experimental Psychologist Required: No Accompanied by: Self / Same As Patient Allergies Iodinated Contrast Media (IV DYE, IODINE CONTAINING CONTRAST ) Allergy (Severe, Verified 01/16/25 15:21) HIVE Penicillins (PENICILLINS) Allergy (Severe, Verified 01/16/25 15:21) HIVES Medication List - Last Reconciled 01/16/25 by Jamel Mansfield MD albuterol sulfate 90 mcg/actuation (Ventolin HFA) 2 puffs inhalation Q4-6H PRN allopurinol 100 mg PO DAILY 90 days atorvastatin (Lipitor) 80 mg PO DAILY cholecalciferol (vitamin D3) 50 mcg PO DAILY 90 days citalopram 20 mg PO clotrimazole-betamethasone 1-0.05 % 1 appl topical BID 2 weeks dapagliflozin propanediol (Farxiga) 5 mg PO QAM diltiazem HCl ER 240 mg PO DAILY diphenoxylate-atropine 2.5-0.025 mg tabs PO PRN doxycycline hyclate 100 mg PO BID ferrous sulfate (Feosol) 325 mg PO BID fluticasone furoate-vilanterol 200-25 mcg/dose (Breo Ellipta) 1 ea PO DAILY 90 days Incruse Ellipta 62.5 mcg/actuation (umeclidinium) 1 inh inhalation DAILY 30 days NS Januvia (sitagliptin phosphate) 100 mg PO DAILY 30 days NS lansoprazole (Prevacid) 30 mg PO DAILY@0630 mecobalamin (vitamin B12) 5,000 mcg PO DAILY melatonin 10 mg PO BEDTIME PRN metoprolol succinate ER 100 mg PO DAILY mirtazapine 15 mg PO BEDTIME montelukast 10 mg PO DAILY nystatin 1 appl topical TID 10 days potassium chloride ER 50 mEq PO DAILY prothrombin time/INR test metr (Coaguchek XS Pro) As directed prothrombin time/INR test metr (Coaguchek XS Pro) As directed spironolactone 25 mg PO DAILY torsemide 20 mg PO .QOD trazodone 50 mg PO BEDTIME warfarin Take 1 tablet daily or as instructed orally; Tobacco use date assessed: 01/16/25 Fall risk assessment: No Falls in past year Last assessed Fall Risk: 01/16/25 Dental Screening Dental Screen Date: 01/16/25 Did you have a dental visit in the last 12 months?: Yes Did you have a dental problem in the last 6 months where you did not have access to dental care?: No Was dental information given to patient?: Patient has dentist HPI DM, COPD, hyperlipidemia, CKD, HTN, OA HPI Details Patient comes in today for her follow up visit States that she feels somewhat fatigued lately but is okay otherwise She denies any headaches or dizziness Denies any chest pains, no increased SOB - still has frequent SUAREZ but states that this has been her baseline for a while now No nausea/vomiting, no abdominal pain No change in bowel habits noted - she still has occasional diarrhea at times She had her follow up labs done last week - to discuss her results [facility] Medical History Pneumonia Chronic diastolic heart failure CHF (congestive heart failure) Thrush, oral GI bleed Occult blood positive stool Microcytic anemia Valvular heart disease Exertional dyspnea Hemorrhagic cystitis Osteopenia Toxic multinodular goiter Obesity (BMI 30-39.9) Hearing impairment Peripheral vascular disease Obesity (BMI 30-39.9) Depression Anxiety Osteoarthritis of ankle and foot Vitamin D deficiency Allergic rhinitis Anemia GERD without esophagitis Gout Hypomagnesemia Multiple thyroid nodules Pure hypercholesterolemia Benign essential hypertension PSVT (paroxysmal supraventricular tachycardia) PAC (premature atrial contraction) COPD (chronic obstructive pulmonary disease) Chronic kidney disease (CKD), stage III (moderate) Type 2 diabetes mellitus with diabetic chronic kidney disease Sciatica of right side Surgical History History of colonoscopy History of angioplasty of peripheral vessel (~08/13/20) History of biopsy History of neck surgery History of cataract surgery History of bladder surgery History of tonsillectomy and adenoidectomy History of appendectomy History of hysterectomy Family History Father Stroke CVD (cardiovascular disease) Mother CVD (cardiovascular disease) Hypertension CAD (coronary artery disease) Other Mental health disorder Social History Household Members: None Housing: Condominium Do you presently have visiting nurse or other home services: Yes (public accountant once per week- [facility]) Alcohol intake: current Alcohol intake frequency: holidays/special occasions only Alcohol type: beer and hard liquor Patient Tobacco Use Status: Former Tobacco user Tobacco use type: Cigarette Cigarette Packs Per Day: 2 Cigarettes Per Day: 40.0 Years Smoked: 40 e-Cigarette/Vaping Use: Never Used Second Hand Smoke Exposure: Yes service: No Current occupational status: retired Cognitive needs: Yes (cane) Hearing needs: Yes Vision needs: Yes Questionnaire PHQ-9 Over the last 2 weeks, how often have you been bothered by any of the following problems? 1. Little interest or pleasure in doing things: not at all 2. Feeling down, depressed, or hopeless: not at all 3. Trouble falling or staying asleep, or sleeping too much: several days 4. Feeling tired or having little energy: several days 5. Poor appetite or overeating: not at all 6. Feeling bad about yourself - or that you are a failure or have let yourself or your family down: not at all 7. Trouble concentrating on things, such as reading the newspaper or watching television: not at all 8. Moving or speaking so slowly that other people could have noticed. Or the opposite - being so fidgety or restless that you have been moving around a lot more than usual: not at all 9. Thoughts that you would be better off or of hurting yourself in some way: not at all Total score: 2 Depression Screening Interpretation: Negative Depression Screening Done: Yes 36900 - PHQ-9 Billing: Yes Source: Developed by Drs. Steven Hebert, Ursula Watson, Jared Joshi and colleagues, with an educational fredrick from [employer]. Thrive Questionnaire Date Thrive assessed: 09/21/24 I am a: Patient What is your living situation today?: I have a steady place to live Within the past 12 months, did the food you bought not last and you didn't have the money to get more?: Never true Within the past 12 months, did you worry whether your food would run out before you got money to buy more?: Never true Do you have trouble paying for medicines?: No Do you have trouble getting transportation to medical appointments?: No Do you have trouble paying your heating and electricity bill?: No Do you have trouble taking care of your child, family member or friend?: No Do you have trouble with day-to-day activities such as bathing, preparing meals, shopping, managing finances, etc.?: Yes Are you currently unemployed and looking for a job?: No Are you interested in more education?: No Please select the resources that you would like help with: None Currently or been in a relationship where the following occur: No concerns reported THRIVE Score: 0 AUDIT C Alcohol Use Questionnaire (AUDIT-C) 1. How often do you have a drink containing alcohol?: 2-4 times a month 2. How many drinks containing alcohol do you have on a typical day when you are drinking?: 1 or 2 3. How often do you have six or more drinks on one occasion?: Never Total Score: 2 Score Reviewed/Action Taken: Yes ABEL-7 AMB Questionnaire ABEL-7 Date ABEL - 7 assessed: 09/27/24 Feeling nervous, anxious, or on edge: 0 = Not at all Not being able to stop or control worryin = Not at all Worrying too much about different things: 0 = Not at all Trouble relaxin = Not at all Being so restless that it is hard to sit still: 0 = Not at all Becoming easily annoyed or irritable: 0 = Not at all Feeling afraid as if something awful might happen: 0 = Not at all Total ABEL-7 score (0-4 normal; 5-9 mild; 10-14 moderate; 15-21 severe): 0 Source: Developed by Drs. Steven Hebert, Ursula Watson, Jared Joshi and colleagues, with an educational fredrick from [employer]. Review of Systems Const Denies chills, Reports fatigue, Denies fever(s) and Denies headache(s) ENT Denies dysphagia, Denies dizziness, Denies otalgia, Denies headache(s), Denies neck pain, Denies odynophagia and Denies sore throat Card Denies chest pain, Reports claudication, Denies palpitations and Reports dyspnea on exertion (mild) Resp Denies chest congestion, Denies cough and Reports dyspnea on exertion (mild) GI Denies abdominal pain, Denies hematochezia, Reports constipation, Denies dysphagia, Denies heartburn, Denies diarrhea, Reports loose stools (occasionally), Denies nausea, Denies odynophagia and Denies vomiting Denies difficulty voiding, Denies nocturia, Denies dysuria and Denies urinary urgency Musc Reports back pain (on and off; better now than a couple of months ago), Reports arthralgias (right hip, on and off; increased in R shoulder) and Denies neck pain Skin/Breast Denies rash Neuro Denies dizziness and Denies headache(s) Endo Reports fatigue and Denies palpitations Sean/Lymph Details: (+) recurrent pain/claudication over her left lower extremity Physical exam (Primary Care) Vital Signs: Last Vital Signs Pulse 60 01/16/25 14:40 BP 108/62 01/16/25 14:40 Pulse Ox 93 01/16/25 14:40 Oxygen Delivery Method Room Air 01/16/25 14:40 BMI result Body Mass Index 33.4 Tobacco/Smoking Status: Tobacco use Status Tobacco use date assessed 01/16/25 01/16/25 14:47 Patient Tobacco Use Status Former Tobacco user 01/16/25 14:47 Tobacco use type Cigarette 01/16/25 14:47 e-Cigarette/Vaping Use Never Used 01/16/25 14:47 PHQ-9: PHQ-9 Score PHQ-9: Total score 2 01/16/25 14:47 Depression Screening Interpretation: Negative Thrive Assessment: Date of Thrive Assessment Date Thrive assessed 09/21/24 01/16/25 14:47 Currently or been in a relationship where the following occur: No concerns reported Const General: no acute distress and alert HENMT Ears: TM's normal bilaterally and EAC's normal Throat: Yes posterior oropharynx normal and Yes tonsils normal (no TP congestion noted) Neck Neck: Yes supple and No lymphadenopathy Thyroid: Thyroid normal Resp Auscultation: clear to auscultation bilaterally, no rales and no wheezes Cardio Rate: bradycardic Rhythm: regular rhythm Heart sounds: Murmur heart sound present diastolic blowing and at the apex and systolic III/ and at the base GI Palpation (GI): Soft to palpation and nontender Auscultation: normal bowel sounds General: Yes no CVA tenderness Back/Spine/Pelvis Back: no CVA tenderness Thoracic/Lumbar Spine: lumbar spinal tenderness (mild) Skin Rashes: no rashes Extrem General: Yes no clubbing, cyanosis or edema Right upper extremity: shoulder/upper arm Details: tenderness Location: of the A-C joint (and behind the right shoulder ) Results Reviewed Results Reviewed: Laboratory Tests 01/10/25 01/10/25 10:32 13:30 WBC 9.3 Hgb 13.4 Hct 42.4 Plt Count 304 Sodium 138 Potassium 4.3 Creatinine 1.39 Estimated GFR 36 Fasting Glucose 164 H Hemoglobin A1c % 6.9 H Calcium 9.7 AST 22 ALT 20 Triglycerides 151 H Cholesterol 155 LDL Cholesterol, Calc 100 H HDL Cholesterol 25 L Vitamin B12 > 2000 H 25-OH Vitamin D Total 42.5 TSH 0.24 L Free T4 1.16 Ur Specific [place] 1.020 Urine Protein Negative Urine Glucose (UA) 500 H Urine Blood Negative Urine Nitrite Negative Ur Leukocyte Esterase Negative Microalb/Creat Ratio 24.0 Coding Level of Care Code Est Pt Level 4 (93300) Diagnoses Pure hypercholesterolemia E78.00 Type 2 diabetes mellitus with stage 3b chronic kidney disease, without long-term current use of insulin E11.22; N18.32 Diabetes mellitus half-way insulin use: without termite helper use Chronic kidney disease stage: stage 3 (moderate) Chronic kidney disease stage 3 subtype: stage 3b (GFR 30-44) Stage 3a chronic kidney disease N18.31 Chronic kidney disease stage 3 subtype: stage 3a (GFR 45-59) Chronic diastolic heart failure I50.32 Valvular heart disease I38 Benign essential hypertension I10 Chronic obstructive pulmonary disease, unspecified COPD type J44.9 COPD type: unspecified COPD PSVT (paroxysmal supraventricular tachycardia) I47.1 PAC (premature atrial contraction) I49.1 Peripheral vascular disease I73.9 Toxic multinodular goiter E05.20 Anemia, unspecified type D64.9 Anemia type: unspecified type Gout, unspecified cause, unspecified chronicity, unspecified site M10.9 Gout site: unspecified site Gout etiology: unspecified cause Chronicity: unspecified Hypomagnesemia E83.42 GERD without esophagitis K21.9 Vitamin D deficiency E55.9 Chronic right-sided low back pain with right-sided sciatica M54.41; G89.29 Back pain laterality: right Right shoulder pain, unspecified chronicity M25.511 Chronicity: unspecified Right elbow pain M25.521 Anxiety F41.9 Episode of recurrent major depressive disorder, unspecified depression episode severity F33.9 Depression Type: major depressive disorder Major depression recurrence: recurrent Active/Remission status: currently active Major depression episode severity: unspecified Obesity (BMI 30-39.9) E66.9 Additional Codes PHQ-9 - 44862 - PHQ-9 Billing: Yes ([id number]) Assessment & Plan Assessment & Plan (1) Pure hypercholesterolemia: Code(s): E78.00 - Pure hypercholesterolemia, unspecified Category: Medical Plan: Results of her labs done last week reviewed and discussed with patient Reinforced low cholesterol diet Continue Atorvastatin 40 mg QD Will recheck her labs and fasting lipids in 3 months for follow up (2) Type 2 diabetes mellitus with diabetic chronic kidney disease: Code(s): E11.22 - Type 2 diabetes mellitus with diabetic chronic kidney disease Category: Medical Qualifiers: Diabetes mellitus termite helper insulin use: without termite helper use Chronic kidney disease stage: stage 3 (moderate) Chronic kidney disease stage 3 subtype: stage 3b (GFR 30-44) Qualified Code(s): E11.22 - Type 2 diabetes mellitus with diabetic chronic kidney disease; N18.32 - Chronic kidney disease, stage 3b Plan: Her HgbA1c was at 6.9% on her labs done last week (was previously at 6.7% a few months ago and at 6.2% earlier this year) - goal is at least <7.0% but have cautioned patient that her HgbA1c has been slowly but steadily climbing up over the past year Reinforced diabetic diet Continue Januvia 100 mg QD and Farxiga 5 mg Q AM for now but advised but we may need to add another Rx if her HgbA1c continues to go up further She was taken off Glimepiride 1 mg QD last year as she was reportedly exp eriencing recurrent symptomatic low blood sugar readings She could not tolerate Metformin / Metformin ER due to diarrhea Will recheck her labs and HgbA1c in 3 months for follow up (3) Chronic kidney disease (CKD), stage III (moderate): Code(s): N18.30 - Chronic kidney disease, stage 3 unspecified Category: Medical Qualifiers: Chronic kidney disease stage 3 subtype: stage 3a (GFR 45-59) Qualified Code(s): N18.31 - Chronic kidney disease, stage 3a Plan: Stable She had abdominal CT done in May 2024 that revealed a markedly atrophic right kidney so she technically likely has only 1 functioning kidney at this time She was taken off Valsartan when she reportedly developed some MARBELLA while admitted to the hospital last year She was also started on Farxiga a few months ago and her Metoprolol ER and Torsemide dosage were also lowered by cardiology recently - have advised patient that all these likely contributed to the recent improvement in her renal function Will continue to monitor her GFR and serum creatinine regularly (4) Chronic diastolic heart failure: Comment: SHE IS BEING FOLLOWED BY CARDIOLOGY REGULARLY, AND BEING TREATED FOR CHRONIC DIASTOLIC CONGESTIVE HEART FAILURE. HER CARDIAC STATUS IS ALSO REMAINING STABLE IN THE LAST 6 MONTHS. Code(s): I50.32 - Chronic diastolic (congestive) heart failure Category: Medical Plan: Continue Torsemide 20 mg QOD Reinforced fluid restriction Follow up with cardiology as scheduled (5) Valvular heart disease: Code(s): I38 - Endocarditis, valve unspecified Category: Medical Plan: Previous echocardiogram done on 01/14/2021 revealed (+) normal LV size and function, with hyperdynamic EF of >70%; left atrium is severely dilated, with moderate AR and moderate as well as moderate MR and severe MS and mild pulmonary hypertension - these changes appear to be worse compared to previous findings Repeat echocardiogram done on 07/17/2021 revealed findings that are mostly unchanged from 2020 but the gradient across the mitral valve is slightly less and PA pressures have improved and the gradient across the aortic valve is also slightly improved She reportedly had a normal cardiac cath done at [facility] back in August 2022 She has also been advised that she will be potentially requiring valve replacement or repair of her mitral and aortic valve - patient does not feel she is ready for either yet at this time Follow up with cardiology as scheduled - she used to see Dr. Ajay Hannah but is now seeing Dr. Nance up at [facility] (6) Benign essential hypertension: Code(s): I10 - Essential (primary) hypertension Category: Medical Plan: Reinforced low-sodium diet - goal is systolic BP of at least 140 to 150 mm or less Continue Metoprolol ER 75 mg QD Her Valsartan 160 mg QD was discontinued while she was in the hospital last year due to MARBELLA (7) COPD (chronic obstructive pulmonary disease): Comment: SHE HAS MODERATELY SEVERE ASTHMA/COPD. WITH THE CURRENT COMBINATION SHE IS FEELING BETTER. SHE HAS NOT REQUIRED TO USE RESCUE INHALER. Code(s): J44.9 - Chronic obstructive pulmonary disease, unspecified Category: Medical Qualifiers: COPD type: unspecified COPD Qualified Code(s): J44.9 - Chronic obstr uctive pulmonary disease, unspecified Plan: Controlled Continue Breo Ellipta 200-25 mcg 1 inhalation QD, Incruse Ellipta 62.5 mcg 1 inhalation QD and Albuterol HFA 108 mcg 2 puffs 4 times a day as needed Follow up with pulmonary as scheduled - she sees Dr. Cardona here at [facility] (8) PSVT (paroxysmal supraventricular tachycardia): Code(s): I47.1 - Supraventricular tachycardia Category: Medical Plan: She is currently controlled on Diltiazem ER with no recurrence of her SVT for a while now Follow-up with cardiology as scheduled (9) PAC (premature atrial contraction): Code(s): I49.1 - Atrial premature depolarization Category: Medical Plan: This has been controlled adequately on Diltiazem so far - continue Diltiazem ER 240 mg QD Follow-up with cardiology as scheduled (10) Peripheral vascular disease: Comment: S/P angioplasty of left lower extremity in July 2020 Code(s): I73.9 - Peripheral vascular disease, unspecified Category: Medical Plan: S/P angioplasty although patient did not feel that her surgery helped a lot She was prevously on dual antiplatelet therapy with low dose Aspirin 81 mg QD and Clopidogrel 75 mg QD previously but is now just on Clopidogrel (Aspirin was discontinued due to GI bleed and profound anemia) Follow up with vascular surgery as scheduled (11) Toxic multinodular goiter: Code(s): E05.20 - Thyrotoxicosis with toxic multinodular goiter without thyrotoxic crisis or storm Category: Medical Plan: Her TFTs were again normal on her recent labs Follow-up with endocrinology as scheduled - FNA Bx done on 06/17/2017 came out benign Ultrasound done a couple of years ago came back unchanged and recommendation is to just continue with yearly ultrasound for continuing surveillance (12) Anemia: Code(s): D64.9 - Anemia, unspecified Category: Medical Qualifiers: Anemia type: unspecified type Qualified Code(s): D64.9 - Anemia, unspecified Plan: Her H/H have improved/corrected and have remained normal on her recent labs This was most likely due to GI bleeding related to her previous dual antiplatelet therapy and she required blood transfusion of 2 units of PRBC in January 2021 and 1 more unit in April 2021; also s/p IV iron in March 2021 Continue Ferrous Sulfate 325 mg BID Follow up with hematology as scheduled (13) Gout: Code(s): M10.9 - Gout, unspecified Category: Medical Qualifiers: Gout site: unspecified site Gout etiology: unspecified cause Chronicity: unspecified Qualified Code(s): M10.9 - Gout, unspecified Plan: Asymptomatic; her serum uric acid level was elevated at 9.3 when it was most recently checked in February 2024 Reinforced low purine diet Continue Colcrys 0.6 mg twice a day, Indomethacin 25 mg twice a day with food as needed (14) Hypomagnesemia: Code(s): E83.42 - Hypomagnesemia Category: Medical Plan: Corrected - will continue to monitor her serum magnesium level regularly (15) GERD without esophagitis: Code(s): K21.9 - Gastro-esophageal reflux disease without esophagitis Category: Medical Plan: Dietary restrictions reinforced Continue Lansoprazole 30 mg daily; may take some OTC Famotidine 20 mg PRN for symptomatic relief Follow-up with GI as scheduled (16) Vitamin D deficiency: Code(s): E55.9 - Vitamin D deficiency, unspecified Category: Medical Plan: Continue Vitamin D3 5000 units once a day (17) Chronic low back pain with right-sided sciatica: Code(s): M54.41 - Lumbago with sciatica, right side; G89.29 - Other chronic pain Category: Medical Qualifiers: Back pain laterality: right Qualified Code(s): M54.41 - Lumbago with sciatica, right side; G89.29 - Other chronic pain Plan: Lumbar spine x-rays done back in April 2022 revealed (+) multilevel lumbar spondylosis and facet arthritis, with no acute changes or fractures noted Reinforced activity and weight-lifting restrictions Due to her increasing low back pain and right lumbar radiculopathy, she was sent for repeat lumbar spine x-rays and also for SI joint x-rays for further evaluation a few months ago (March 2024), which revealed (+) no acute compression fracture, with a slight retrolisthesis L1-2 and anterolisthesis L4-5 not appreciably changed from previous imaging. There is also extensive deg enerative disc space narrowing L5-S1 that appears to be slightly increased from previous Have advised patient to consider referral to pain management if her low back pain continues to progress (18) Right shoulder pain: Code(s): M25.511 - Pain in right shoulder Category: Medical Qualifiers: Chronicity: unspecified Qualified Code(s): M25.511 - Pain in right shoulder Plan: Suspect right shoulder bursitis and/or impingement syndrome X-rays of the right shoulder done back in March 2024 did reveal (+) degenerative changes as well as findings suggestive of calcific tendinitis Follow up with orthopedics as scheduled (19) Right elbow pain: Code(s): M25.521 - Pain in right elbow Category: Medical Plan: X-rays of the right elbow done back in March 2024 also revealed (+) degenerative changes in the elbow with no acute process Patient states that her elbow pain has actually subsided a lot lately and is not bothering her as much as it used to (20) Anxiety: Code(s): F41.9 - Anxiety disorder, unspecified Category: Medical Plan: States that her Citalopram is helping with her anxiety (21) Depression: Code(s): F32.9 - Major depressive disorder, single episode, unspecified Category: Medical Qualifiers: Depression Type: major depressive disorder Major depression recurrence: recurrent Active/Remission status: currently active Major depression episode severity: unspecified Qualified Code(s): F33.9 - Major depressive disorder, recurrent, unspecified Plan: Continue Citalopram 40 mg QD and Mirtazapine 15 mg Q HS Follow-up with Psychiatry as scheduled - is now seeing a nurse practitioner as her previous psychiatrist retired from active practice (22) Obesity (BMI 30-39.9): Code(s): E66.9 - Obesity, unspecified Category: Medical Plan: Reinforced diet; exercise and weight loss are unrealistic in this patient as she is currently experiencing a lot of physical and vascular symptoms and has multiple comorbidities that significantly limits her activity and exercise tolerance Plan Follow up in 3 months Orders: Orders Lipid Panel 3 Months E78.00 - Pure hypercholesterolemia, unspecified Microalbumin, Random (w Creat) 3 Months E11.9 - Type 2 diabetes mellitus without complications Uric Acid 3 Months M10.9 - Gout, unspecified Vitamin D 25-OH Total 3 Months E55.9 - Vitamin D deficiency, unspecified Vitamin B12 and Folate 3 Months E53.8 - Deficiency of other specified B group vitamins Magnesium 3 Months E83.42 - Hypomagnesemia Complete Blood Count Auto Diff 3 Months D64.9 - Anemia, unspecified Comprehensive [place]. Panel Fast 3 Months E78.00 - Pure hypercholesterolemia, unspecified Hemoglobin A1c 3 Months E11.9 - Type 2 diabetes mellitus without complications TSH reflex Free T4 3 Months E78.00 - Pure hypercholesterolemia, unspecified UA CC w/rflx Micro + Cult 3 Months R30.0 - Dysuria Ferritin 3 Months D64.9 - Anemia, unspecified, N17.9 - Acute kidney failure, unspecified
[2025-01-16 14:40] VITALS: BP 108/62; PULSE 60; O2SAT 93; BMI 33.4
--- OUTSIDE RECORDS SUMMARY | 2025-01-16 15:45 | XMS_ITS | Encounter Summary ---
Author Organization [facility] Address [address] [place] [address] Phone Care Team Providers Care Cow Puncher Name Role Phone Jamel Mansfield MD Primary Care Provider +1 -[phone] Encounter Details Date Type Department Care Team (Late st Contact Info) Description 01/02/2025 Orders Only [facility] [address] [facility] 3rd Floor, [address] [place] [address] Ashley Hernandez, DIVING JUDGE [address] [place] [address] [email or web address] Social History Tobacco Use Types Packs/Day Years [...] Description 02/16/2025 3:20 PM EDT Office Visit [facility] [address] [facility] 3rd Floor, [address] [place] [address] Darryl Khan MD [address] [place] [address] [email or web address] documented as of this encounter Visit Diagnoses Not on filedocumented in this encounter Care Teams Cow Puncher Relationship Specialty Start Date End Date Jamel Mansfield MD [address] [place] [address] [address] PCP - General 03/04/17 documented as of this encounter Additional Source Comments The information contained in this document represents components of the legal health record. It is not the complete legal health record.[facility]
--- OUTSIDE RECORDS SUMMARY | 2025-01-16 15:45 | XMS_ITS | Clinical Summary ---
Author Organization [facility] Address [address] [place] [address] [address] [place] [address] Phone Care Team Providers Care Rn Case Management Name Role Phone Jamel Mansfield MD Primary Care Provider +1 -[phone] Allergies Active Allergy Reactions Criticality Noted Date Comments Iodinated Contrast Media Hives 09/04/2017 Penicillins Hives 09/04/2017 Medications lansoprazole (PREVACID) 30 MG capsule Take 1 capsule by mouth daily. Active traZODone (DESYREL) 50 MG tablet Orally Once a day Active montelukast (SINGULAIR) 10 mg tablet Take 1 tablet by mouth every evening. Active ferrous sulfate 325 mg (65 mg rapp[place]annock iron) tablet Take 325 mg by mouth [...] daily. Active cyanocobalamin (VITAMIN B-12) 500 mcg/spray [place] 500 mcg by Right Nare route. Active [...] a surgical candidate for valve repair through [facility]. She declined obtaining a second opinion, she is not interested in undergoing open heart surgery at her age. We did discuss potential for TAVR versus enrollment in [facility] trial with possible TMVR. The exact inclusion [...] torsemide 10 mg fdaily -Patient was at [facility] at the end of July with [...] to obtain a lipid panel from the [facility] system. Goal LDL is less than 70. [...] of claudication. I recommended she follow-up with [facility] vascular who has been managing this [...] frequently at her PCP office in the [facility] system. I have discussed with her that given her extensive peripheral arterial disease, she should have an LDL of less than 70. We will try to obtain a lipid panel from [facility]. She is on 40 mg of atorvastatin. [...] Department Care Team Description 01/09/2025 Orders Only [facility] [address] [facility], [address] [place] [address] Ashley Hernandez CNP 01/02/2025 Orders Only [facility] [address] [facility], [address] [place] [address] Ashley Hernandez CNP 12/01/2024 Telephone [facility] [address]z [facility], [address] [place] [address] Wiliam Briggs TAVR/TMVR Referral 11/27/2024 2:30 PM EDT Office Visit [facility] [address] [facility], [address] [place] [address] Ashley Hernandez CNP Valvular heart disease (Primary Dx); PAF (paroxysmal atrial fibrillation); Peripheral vascular disease; Primary hypertension; Chronic heart failure with preserved ejection fraction 11/27/2024 Telephone [facility] [address] [facility], [address] [place] [address] Wiliam Briggs 11/17/[address] [facility], [address] [place] [address] Thomas Nance MD Medication Refill from Last [...] Description 02/16/2025 3:20 PM EDT Office Visit [facility] [address] Floor, [address] [place] [address] Darryl Khan MD [address] [place] [address] [email or web address] Health Maintenance Due Date Last Done Comments Adult Td,Tdap Booster 1940 DEPRESSION SCREENING 1952 ZOSTER VACCINES (1 of 2) 12/06/1989 OSTEOPOROSIS SCREENING INITIAL (ONE-TIME) 12/06/2004 RSV VACCINE (1 - 1-dose 75+ series) 12/06/2014 PNEUMOCOCCAL VACCINES (50+ years) (2 of 2 - PPSV23) 04/25/2018 02/28/2018, 02/09/2018 DIABETIC EYE EXAM 09/14/2022 HEMOGLOBIN A1C 03/18/2023 09/15/2022 INFLUENZA VACCINE (#1) 2024 , 01/30/2019, 02/09/2018, Additional history exists COVID-19 VACCINE ( season) 2025 10/06/2021, 03/14/2021, 07/12/2020, Additional history exists BLOOD PRESSURE 05/30/2025 11/27/2024 [...] EST) SODIUM 139 133 - 146 mmol/L [facility] CHLORIDE 105 96 - 108 mmol/L [facility] POTASSIUM 4.0 3.3 - 5.1 mmol/L [facility] CO2 22 21 - 35 mmol/L [facility] BUN 33(H) 6 - 19 mg/dL [facility] CREATININE 1.60(H) 0.5 - 1.5 mg/dL [facility] GLUCOSE 189(H) 70 - 99 mg/dL [facility] CALCIUM 9.6 8.4 - 10.3 mg/dL [facility] EGFR 32(L) >59 mL/min/1.7 3m2 [facility] Comment:Estimated glomerular filtration rate calculated using the CKD-EPI refit equation. ANION GAP 16 10 - 20 mmol/L [facility] Blood 06/21/2024 1:18 PM EST 06/21/2024 1:20 PM EST us Gaudencio Whitfield MD LAB BLOOD ORDERABLES Final Resul t Performing Organization Address [facility]/ZIP Co de Phone Number [address] [address] * (ABNORMAL) Hemoglobin A1c (09/15/2022 5:46 AM EDT) HEMOGLOBIN A1C 6.1(H) 4.3 - 5.8 % [facility] Blood 09/15/2022 5:46 AM EDT 09/15/2022 6:11 AM EDT us Kayla Alfred DO LAB BLOOD ORDERABLES Final Re sult Performing Organization Address City/[facility]/ZIP Co de Phone Number [address] [address] from Last 3 Months or Most Recently Relevant to Health Maintenance Insurance [address] [place] [address] MEDICARE PART A & B MEDICARE SUPPLEMENT [address] [place] [address] MEDICARE PART A & B MEDICARE SUPPLEMENT [address] [place] [address] MEDICARE PART A & B MEDICARE SUPPLEMENT MEDICARE PART A & B MEDICARE SUPPLEMENT MEDICARE PART A & B MEDICARE SUPPLEMENT [address] [place] [address] MEDICARE PART A & [place] [address] [place] [address] MEDICARE SUPPLEMENT [address] [place] [address] MEDICARE PART A & B MEDICARE SUPPLEMENT [address] [place] [address] MEDICARE PART A & B Member Subscriber Plan / Payer (Ef fective 2004-Present) Name:Alice Martinez Member ID:[id number] Relation to Subscriber:Self Name:Alice Martinez Subscriber ID:[id number] Payer ID:[id number] Group ID:Not on file Type:Medicare Address: [employer] [address] MEDICARE SUPPLEMENT MEDICARE PART A & B MEDICARE SUPPLEMENT Advance Directives For more information, please contact: [phone] (9AM - 5PM [facility], Wednesday-Wednesday) Documents on File Type Date Recorded Patient Tap Dancer Expl anation Power of Underwriting Manager Healthcare Proxy 08/20/2020 Healthcare Proxy * Full Code (Latest Code Status on File) Date Activated Date Inactivated Comments 09/14/2022 3:33 PM Question Answer Comments Code Status Confirmed With: Patient Care Teams Rn Case Management Relationship Specialty Start Date End Date Jamel Mansfield MD [address] [place] [address] [place] [address] PCP - General 03/04/17 Additional Source Comments The information contained in this document represents components of the legal health record. It is not the complete legal health record.[facility]
--- OUTSIDE RECORDS SUMMARY | 2025-01-16 15:45 | XMS_ITS | Encounter Summary ---
Author Organization [facility] Address [address] [place] [address] Drive [address] [place] [address] Phone Care Team Providers Care Restaurant Expeditor Name Role Phone Jamel Mansfield MD Primary Care Provider +1 -[phone] Encounter Details Date Type Department Care Team (Late st Contact Info) Description 07/16/2021 Procedure Pass [facility] [place] [place] [address] Social History Tobacco Use Types Packs/Day Years [...] Description 02/16/2025 3:20 PM EDT Office Visit [facility] [address] [place] [address] 3rd Floor, [address] [place] [address] Darryl Khan MD [address] [place] [address] [email or web address] documented as of this encounter Visit Diagnoses Not on filedocumented in this encounter Additional Health Concerns Infection Onset Date Last Indicated Resolved Time CoV-Risk Comment:Per note documentation 09/14/2022 09/14/2022 3 1:18 PM EDT documented as of this encounter Care Teams Restaurant Expeditor Relationship Specialty Start Date End Date Jamel Mansfield MD [address] [place] [address] [place] [address] PCP - General 03/04/17 documented as of this encounter Additional Source Comments The information contained in this document represents components of the legal health record. It is not the complete legal health record.[facility]
--- OUTSIDE RECORDS SUMMARY | 2025-01-16 15:45 | XMS_ITS | Encounter Summary ---
Author Organization [facility] Address [facility] [address] [place] [address] Phone Care Team Providers Care Singeing Torch Operator Name Role Phone Jamel Mansfield MD Primary Care Provider +1 -[phone] Encounter Details Date Type Department Care Team (Late st Contact Info) Description 02/16/2024 Procedure Pass Echo Lab [place] [place] [address] Social History Tobacco Use Types Packs/Day Years [...] Description 02/16/2025 3:20 PM EDT Office Visit [facility] [address] [place] [address] 3rd Floor, [address] [place] [address] Darryl Khan MD [address] [place] [address] documented as of this encounter Visit Diagnoses Not on filedocumented in this encounter Care Teams Singeing Torch Operator Relationship Specialty Start Date End Date Jamel Mansfield MD [address] [place] [address] Dr [address] [place] [address] PCP - General 03/04/17 documented as of this encounter Additional Source Comments The information contained in this document represents components of the legal health record. It is not the complete legal health record.[facility]
--- OUTSIDE RECORDS SUMMARY | 2025-01-16 15:45 | XMS_ITS | Encounter Summary ---
Author Organization [facility] Address [facility] [address] [place] [address] Phone Care Team Providers Care Web Applications Programmer Name Role Phone Jamel Mansfield MD Primary Care Provider +1 -[phone] Encounter Details Date Type Department Care Team (Late st Contact Info) Description 09/28/2022 Procedure Pass [facility] [address] [place] [address] Social History Tobacco Use Types Packs/Day Years [...] Description 02/16/2025 3:20 PM EDT Office Visit [facility] [address] [place] [address] 3rd Floor, [address] [place] [address] Darryl Khan MD [address] [place] [address] [email or web address] documented as of this encounter Visit Diagnoses Not on filedocumented in this encounter Care Teams Web Applications Programmer Relationship Specialty Start Date End Date Jamel Mansfield MD [address] [place] [address] [address] PCP - General 03/04/17 documented as of this encounter Additional Source Comments The information contained in this document represents components of the legal health record. It is not the complete legal health record.[facility]
--- OUTSIDE RECORDS SUMMARY | 2025-01-16 15:45 | XMS_ITS | Encounter Summary ---
Author Organization [facility] Address [address] [place] [address] Phone Care Team Providers Care Vice President Regulatory Name Role Phone Jamel Mansfield MD Primary Care Provider +1 -[phone] Encounter Details Date Type Department Care Team (Late st Contact Info) Description 01/09/2025 Orders Only [facility] 3rd Floor, [address] [place] [address] Ashley Hernandez, P 3 ARMAMENT/ORDNANCE IMA TECHNICIAN [address] [place] [address] [email or web address] Social History Tobacco Use Types Packs/Day Years [...] Description 02/16/2025 3:20 PM EDT Office Visit [facility] [address] [facility] 3rd Floor, [address] [place] [address] Darryl Khan MD [address] [place] [address] [email or web address] documented as of this encounter Visit Diagnoses Not on filedocumented in this encounter Care Teams Vice President Regulatory Relationship Specialty Start Date End Date Jamel Mansfield MD [address] [place] [address] [address] PCP - General 03/04/17 documented as of this encounter Additional Source Comments The information contained in this document represents components of the legal health record. It is not the complete legal health record.[facility]
--- OUTSIDE RECORDS SUMMARY | 2025-01-16 15:45 | XMS_ITS | Encounter Summary ---
Author Organization [facility] Address [address] [place] [address] Drive [address] [place] [address] Phone Care Team Providers Care Mattress Stuffer Name Role Phone Jamel Mansfield MD Primary Care Provider +1 -[phone] Encounter Details Date Type Department Care Team (Late st Contact Info) Description 07/23/2020 Procedure Pass Echo Lab [place] [place] [address] Social History Tobacco Use Types Packs/Day Years [...] Description 02/16/2025 3:20 PM EDT Office Visit [facility] [address] [place] [address] 3rd Floor, [address] [place] [address] Darryl Khan MD [address] [place] [address] [email or web address] documented as of this encounter Visit Diagnoses Not on filedocumented in this encounter Additional Health Concerns Infection Onset Date Last Indicated Resolved Time CoV-Risk Comment:Per note documentation 09/14/2022 09/14/2022 3 1:18 PM EDT documented as of this encounter Care Teams Mattress Stuffer Relationship Specialty Start Date End Date Jamel Mansfield MD [address] [place] [address] [place] [address] PCP - General 03/04/17 documented as of this encounter Additional Source Comments The information contained in this document represents components of the legal health record. It is not the complete legal health record.[facility]
--- OUTSIDE RECORDS SUMMARY | 2025-01-16 15:45 | XMS_ITS | Encounter Summary ---
Author Organization [facility] Address [facility] [address] [place] [address] Phone Care Team Providers Care Food Service Helper Name Role Phone Jamel Mansfield MD Primary Care Provider +1 -[phone] Encounter Details Date Type Department Care Team (Late st Contact Info) Description 04/24/2020 Procedure Pass Echo Lab [place] [place] [address] Social History Tobacco Use Types Packs/Day Years [...] Description 02/16/2025 3:20 PM EDT Office Visit [facility] [address] [place] [address] 3rd Floor, [address] [place] [address] Darryl Khan MD [address] [place] [address] [email or web address] documented as of this encounter Visit Diagnoses Not on filedocumented in this encounter Additional Health Concerns Infection Onset Date Last Indicated Resolved Time CoV-Exposed Comment:Close contact 04/30/2020 05/05/2020 05/14/2020 1:25 AM EST CoV-Risk Comment:Per note documentation 09/14/2022 09/14/2022 3 1:18 PM EDT documented as of this encounter Care Teams Food Service Helper Relationship Specialty Start Date End Date Jamel Mansfield MD [address] [place] [address] [place] [address] PCP - General 03/04/17 documented as of this encounter Additional Source Comments The information contained in this document represents components of the legal health record. It is not the complete legal health record.[facility]
--- OUTSIDE RECORDS SUMMARY | 2025-01-16 15:45 | XMS_ITS | Encounter Summary ---
Author Organization [facility] Address [facility] [address] [place] [address] Phone Care Team Providers Care Railroad Wheels And Axle Inspector Name Role Phone Jamel Mansfield MD Primary Care Provider +1 -[phone] Reason for Referral * MRI/CAT Scan - Closed Specialty Diagnoses / Procedures Referred By Contac t Referred To Contact Radiology Diagnoses Peripheral vascular disease, unspecified Procedures CT Angio Abdominal Aorta and Bilateral Lower Extremity Runoff Ofelia Villasenor MD [address] [address] Phone: tel: fax: Referral ID Status Reason Start Date Expiration Date Visits Re quested Visits Authorized [id number] Closed 05/09/2019 05/08/2020 1 1 Encounter Details Date Type Department Care Team (Latest Contact Info) Description 05/09/2019 Transcribe Orders Virtual Department [address] [place] [address] Ofelia Villasenor MD [address] [address] Peripheral vascular disease, unspecified (Primary Dx) Social [...] Description 02/16/2025 3:20 PM EDT Office Visit [facility] 3rd Floor, [address] [place] [address] Darryl Khan MD [address] [place] [address] [email or web address] documented as of this encounter Results * [...] identified. TOTAL CTDIvol: 22.00 mGy POS - [id number] Narrative 05/30/2019 7:22 PM EST COMPARISON: None [...] stenosisidentified. TOTAL CTDIvol: 22.00 mGy POS - [id number] us Ofelia Villasenor MD IMG CT ABD/PELVIS [...] documented as of this encounter Care Teams Railroad Wheels And Axle Inspector Relationship Specialty Start Date End Date Jamel Mansfield MD [address] [place] [address] [place] [address] PCP - General 03/04/17 documented as of this encounter Additional Source Comments The information contained in this document represents components of the legal health record. It is not the complete legal health record.[facility]
--- OUTSIDE RECORDS SUMMARY | 2025-01-16 15:45 | XMS_ITS | Encounter Summary ---
Author Organization [facility] Address [facility] [address] [place] [address] Phone Care Team Providers Care Electronics Department Manager Name Role Phone Jamel Mansfield MD Primary Care Provider +1 -[phone] Encounter Details Date Type Department Care Team (Late st Contact Info) Description 09/25/2022 Procedure Pass [facility] Ct Scan - [address] [address] Social History Tobacco Use Types Packs/Day Years [...] Description 02/16/2025 3:20 PM EDT Office Visit [facility] 3rd Floor, [address] [place] [address] Darryl Khan MD [address] [place] [address] [email or web address] documented as of this encounter Visit Diagnoses Not on filedocumented in this encounter Care Teams Electronics Department Manager Relationship Specialty Start Date End Date Jamel Mansfield MD [address] [place] [address] [address] PCP - General 03/04/17 documented as of this encounter Additional Source Comments The information contained in this document represents components of the legal health record. It is not the complete legal health record.[facility]
--- OUTSIDE RECORDS SUMMARY | 2025-01-16 15:45 | XMS_ITS | Encounter Summary ---
Author Organization [facility] Address [address] [place] [address] [place] [address] Phone Care Team Providers Care Relations Mgr Name Role Phone Jamel Mansfield MD Primary Care Provider +1 -[phone] Encounter Details Date Type Department Care Team (Late st Contact Info) Description 08/13/2022 Procedure Pass [facility] [address] [place] [address] Social History Tobacco Use Types Packs/Day Years [...] Description 02/16/2025 3:20 PM EDT Office Visit [facility] [address] [place] [address] 3rd Floor, [address] [place] [address] Darryl Khan MD [address] [place] [address] documented as of this encounter Visit Diagnoses Not on filedocumented in this encounter Additional Health Concerns Infection Onset Date Last Indicated Resolved Time CoV-Risk Comment:Per note documentation 09/14/2022 09/14/2022 1:18 PM EDT documented as of this encounter Care Teams Relations Mgr Relationship Specialty Start Date End Date Jamel Mansfield MD [address] [place] [address] [place] [address] PCP - General 03/04/17 documented as of this encounter Additional Source Comments The information contained in this document represents components of the legal health record. It is not the complete legal health record.[facility]
--- OUTSIDE RECORDS SUMMARY | 2025-01-16 15:45 | XMS_ITS | Clinical Summary ---
Author Organization [facility] Address [address] [place] [address] Care Team Providers Care Automatic Dry Starch Operator Name Role Phone Jamel Mansfield MD Primary Care Provider +1- [phone] Social History Tobacco Use Types Packs/Day Years [...] age to complete this topic Insurance Medicare [facility] Care Teams Automatic Dry Starch Operator Relationship Specialty Start Date End Date Jamel Mansfield MD [address] [place] [address] DR[address] [place] [address] PCP - General Internal Medicine 10/08/22
--- OUTSIDE RECORDS SUMMARY | 2025-01-16 15:45 | XMS_ITS | Encounter Summary ---
Author Organization [facility] Address [address] [place] [address] [address] [place] [address] Phone Care Team Providers Care Pouncer Name Role Phone Jmael Mansfield MD Primary Care Provider +1 [phone] Encounter Details Date Type Department Care Team (Late st Contact Info) Description 02/16/2022 Procedure Pass Echo Lab [place] [place] [address] Social History Tobacco Use Types Packs/Day Years [...] Description 02/16/2025 3:20 PM EDT Office Visit [facility] [address] [place] [address] 3rd Floor, [address] [place] [address] Darryl Khan MD [address] [place] [address] [email or web address] documented as of this encounter Visit Diagnoses Not on filedocumented in this encounter Additional Health Concerns Infection Onset Date Last Indicated Resolved Time CoV-Risk Comment:Per note documentation 09/14/2022 09/14/2022 3 1:18 PM EDT documented as of this encounter Care Teams Pouncer Relationship Specialty Start Date End Date Jamel Mansfield MD [address] [place] [address] [place] [address] PCP - General 03/04/17 documented as of this encounter Additional Source Comments The information contained in this document represents components of the legal health record. It is not the complete legal health record.[facility]
== END 2025-01-16 15:31 | disposition home or self-care (01) ==
LOC: HO.HMCH 14:34
PROVIDERS: PCP Internal Medicine; Visit Provider Internal Medicine
DX: I13.0 Hypertensive heart and chronic kidney disease with heart failure and stage 1 through stage 4 chronic kidney disease, or unspecified chronic kidney disease (principal); E11.22 Type 2 diabetes mellitus with diabetic chronic kidney disease; N18.32 Chronic kidney disease, stage 3b; I50.32 Chronic diastolic (congestive) heart failure; J44.9 Chronic obstructive pulmonary disease, unspecified; E78.00 Pure hypercholesterolemia, unspecified; I38 Endocarditis, valve unspecified; I47.10 Supraventricular tachycardia, unspecified; I49.1 Atrial premature depolarization; I73.9 Peripheral vascular disease, unspecified; E05.20 Thyrotoxicosis with toxic multinodular goiter without thyrotoxic crisis or storm; D64.9 Anemia, unspecified

== ENCOUNTER → 2025-01-16 14:33 | Outpatient (BNVA) | payer MEDICARE, OTHER, SELFPAY | PROVIDERS: PCP Internal Medicine; Visit Provider Internal Medicine | DX: E78.00 Pure hypercholesterolemia, unspecified (principal); I13.0 Hypertensive heart and chronic kidney disease with heart failure and stage 1 through stage 4 chronic kidney disease, or unspecified chronic kidney disease; E11.22 Type 2 diabetes mellitus with diabetic chronic kidney disease; N18.32 Chronic kidney disease, stage 3b; I50.32 Chronic diastolic (congestive) heart failure; I38 Endocarditis, valve unspecified; J44.9 Chronic obstructive pulmonary disease, unspecified; I49.1 Atrial premature depolarization; I73.9 Peripheral vascular disease, unspecified; I47.10 Supraventricular tachycardia, unspecified; E05.20 Thyrotoxicosis with toxic multinodular goiter without thyrotoxic crisis or storm; D64.9 Anemia, unspecified; M10.9 Gout, unspecified; E83.42 Hypomagnesemia; K21.9 Gastro-esophageal reflux disease without esophagitis; M54.41 Lumbago with sciatica, right side; G89.29 Other chronic pain; M25.511 Pain in right shoulder; M25.521 Pain in right elbow; F41.9 Anxiety disorder, unspecified; F33.9 Major depressive disorder, recurrent, unspecified; E66.9 Obesity, unspecified; Z68.33 Body mass index [BMI] 33.0-33.9, adult; Z71.3 Dietary counseling and surveillance | CPT/HCPCS: 96127; 99212 ==

== ENCOUNTER 2025-02-14 14:25 | Outpatient (AMB) | payer MEDICARE, OTHER, SELFPAY ==
--- NOTE | 2025-02-14 14:27 | A.OFFVIS_ITS ---
Vital Signs 02/14/25 14:29 Height 5 ft 2 in Weight 182 lb BMI 33.3 Intake Visit Reasons: Right shoulder pain Intake Note: Alice is a 84 year old female who presents with complaints of right shoulder pain. She describes her pain as achy in nature. She has had cortisone injections in the past which gave her fairly good relief. She wishes to hold off on surgery if at all possible. Allergies Iodinated Contrast Media (IV DYE, IODINE CONTAINING CONTRAST ) Allergy (Severe, Verified 02/14/25 14:30) HIVE Penicillins (PENICILLINS) Allergy (Severe, Verified 02/14/25 14:30) HIVES Medication List - Last Reconciled 02/14/25 by Gael Dennison MD albuterol sulfate 90 mcg/actuation (Ventolin HFA) 2 puffs inhalation Q4-6H PRN allopurinol 100 mg PO DAILY 90 days atorvastatin (Lipitor) 80 mg PO DAILY cholecalciferol (vitamin D3) 50 mcg PO DAILY 90 days citalopram 20 mg PO clotrimazole-betamethasone 1-0.05 % 1 appl topical BID 2 weeks dapagliflozin propanediol (Farxiga) 5 mg PO QAM diltiazem HCl ER 240 mg PO DAILY diphenoxylate-atropine 2.5-0.025 mg tabs PO PRN doxycycline hyclate 100 mg PO BID ferrous sulfate (Feosol) 325 mg PO BID fluticasone furoate-vilanterol 200-25 mcg/dose 1 ea inhalation DAILY Incruse Ellipta 62.5 mcg/actuation (umeclidinium) 1 inh inhalation DAILY 30 days NS Januvia (sitagliptin phosphate) 100 mg PO DAILY 30 days NS lansoprazole (Prevacid) 30 mg PO DAILY@0630 mecobalamin (vitamin B12) 5,000 mcg PO DAILY melatonin 10 mg PO BEDTIME PRN metoprolol succinate ER 100 mg PO DAILY mirtazapine 15 mg PO BEDTIME montelukast 10 mg PO DAILY nystatin 1 appl topical TID 10 days potassium chloride ER 50 mEq PO DAILY prothrombin time/INR test metr (Coaguchek XS Pro) As directed prothrombin time/INR test metr (Coaguchek XS Pro) As directed spironolactone 25 mg PO DAILY torsemide 20 mg PO .QOD trazodone 50 mg PO BEDTIME warfarin Take 1 tablet daily or as instructed orally; [facility] Medical History Pneumonia Chronic diastolic heart failure CHF (congestive heart failure) Thrush, oral GI bleed Occult blood positive stool Microcytic anemia Valvular heart disease Exertional dyspnea Hemorrhagic cystitis Osteopenia Toxic multinodular goiter Obesity (BMI 30-39.9) Hearing impairment Peripheral vascular disease Obesity (BMI 30-39.9) Depression Anxiety Osteoarthritis of ankle and foot Vitamin D deficiency Allergic rhinitis Anemia GERD without esophagitis Gout Hypomagnesemia Multiple thyroid nodules Pure hypercholesterolemia Benign essential hypertension PSVT (paroxysmal supraventricular tachycardia) PAC (premature atrial contraction) COPD (chronic obstructive pulmonary disease) Chronic kidney disease (CKD), stage III (moderate) Type 2 diabetes mellitus with diabetic chronic kidney disease Sciatica of right side Surgical History History of colonoscopy History of angioplasty of peripheral vessel (~08/13/20) History of biopsy History of neck surgery History of cataract surgery History of bladder surgery History of tonsillectomy and adenoidectomy History of appendectomy History of hysterectomy Family History Father Stroke CVD (cardiovascular disease) Mother CVD (cardiovascular disease) Hypertension CAD (coronary artery disease) Other Mental health disorder Social History Household Members: None Housing: Condominium Do you presently have visiting nurse or other home services: Yes (retail experience specialist once per week- [facility]) Alcohol intake: current Alcohol intake frequency: holidays/special occasions only Alcohol type: beer and hard liquor Patient Tobacco Use Status: Former Tobacco user Tobacco use type: Cigarette Cigarette Packs Per Day: 2 Cigarettes Per Day: 40.0 Years Smoked: 40 e-Cigarette/Vaping Use: Never Used Second Hand Smoke Exposure: Yes service: No Current occupational status: retired Cognitive needs: Yes (cane) Hearing needs: Yes Vision needs: Yes Physical Exam Vital Signs: BMI result Body Mass Index 33.3 Const Other: Well-nourished well-developed very friendly female awake alert and oriented x3 in no acute distress Extrem Other: Right shoulder examination shows decreased range of motion when compared to her left shoulder, 3/5 strength with supraspinatus testing, positive impingement signs, no instability Office Procedures AMB Joint Injection/Aspiration Joint Injection/Aspiration Primary Site: right shoulder Prep: site was prepped using aseptic technique Injected: 40 mg of, DepoMedrol and 1% plain lidocaine Procedure: The patient tolerated the procedure well Coding - Large joint Procedure code (CPT) selection complete Assessment & Plan Assessment & Plan (1) Right shoulder pain: Code(s): M25.511 - Pain in right shoulder Category: Medical Qualifiers: Chronicity: unspecified Qualified Code(s): M25.511 - Pain in right shoulder (2) Impingement of right shoulder: Code(s): M25.811 - Other specified joint disorders, right shoulder Category: Medical Plan Ms. Martinez presents with right shoulder pain due to impingement syndrome and chronic rotator cuff tearing. The risks and benefits of a right shoulder cor tisone injection were discussed at length with the patient. The patient wished to proceed. She tolerated the injection well. She will continue with her [id number] exercises. She will contact me prior to her follow-up appointment in 3 months should any questions or concerns arise. Feel free to call me at any time should questions regarding her orthopedic management arise. I spent 22 minutes in reviewing the patient's records and imaging studies, seeing the patient and documenting in the medical record. Orders: Orders AMB Joint Injection/Aspiration Today M25.811 - Other specified joint disorders, right shoulder Coding Level of Care Code Est Pt Level 3 (26154) Complex EM visit Add On G2211 Diagnoses Right shoulder pain, unspecified chronicity M25.511 Chronicity: unspecified Impingement of right shoulder M25.811 CPT Codes Coding - Large joint: 27479 - Large joint ([id number])
[2025-02-14 14:29] VITALS: BMI 33.3
--- OUTSIDE RECORDS SUMMARY | 2025-02-14 15:35 | XMS_ITS | Encounter Summary ---
Author Organization [facility] Address [address] [place] [address] [place] [address] Phone Care Team Providers Care Engineering Designer Name Role Phone Jamel Mansfield MD Primary Care Provider [phone] [phone] Encounter Details Date Type Department Care Team (Late st Contact Info) Description 08/13/2022 Procedure Pass [facility] [address] [place] [address] Social History Tobacco Use Types Packs/Day Years [...] Description 02/16/2025 3:20 PM EDT Office Visit [facility] [address] [place] [address] 3rd Floor, [address] [place] [address] Darryl Khan MD [address] [place] [address] documented as of this encounter Visit Diagnoses Not on filedocumented in this encounter Additional Health Concerns Infection Onset Date Last Indicated Resolved Time CoV-Risk Comment:Per note documentation 09/14/2022 09/14/2022 1:18 PM EDT documented as of this encounter Care Teams Engineering Designer Relationship Specialty Start Date End Date Jamel Mansfield MD [address] [place] [address] [place] [address] PCP - General 03/04/17 documented as of this encounter Additional Source Comments The information contained in this document represents components of the legal health record. It is not the complete legal health record.[facility]
--- OUTSIDE RECORDS SUMMARY | 2025-02-14 15:35 | XMS_ITS | Encounter Summary ---
Author Organization [facility] Address [facility] [address] [place] [address] Phone Care Team Providers Care Technology Risk Intern Name Role Phone aJmel Mansfeild MD Primary Care Provider [phone] [phone] Reason for Referral * MRI/CAT Scan - Closed Specialty Diagnoses / Procedures Referred By Contac t Referred To Contact Radiology Diagnoses Peripheral vascular disease, unspecified Procedures CT Angio Abdominal Aorta and Bilateral Lower Extremity Runoff Ofelia Villasenor MD [address] [address] Phone: tel: fax: Referral ID Status Reason Start Date Expiration Date Visits Re quested Visits Authorized [id number] Closed 05/09/2019 05/08/2020 1 1 Encounter Details Date Type Department Care Team (Latest Contact Info) Description 05/09/2019 Transcribe Orders Virtual Department [address] [place] [address] Ofelia Villasenor MD [address] [address] Peripheral vascular disease, unspecified (Primary Dx) Social [...] Description 02/16/2025 3:20 PM EDT Office Visit [facility] 3rd Floor, [address] [place] [address] Darryl Khan MD [address] [place] [address] [email or web address] documented as of this encounter Results * [...] identified. TOTAL CTDIvol: 22.00 mGy POS - [id number] Narrative 05/30/2019 7:22 PM EST COMPARISON: None [...] stenosisidentified. TOTAL CTDIvol: 22.00 mGy POS - [id number] us Ofelia Villasenor MD IMG CT ABD/PELVIS [...] documented as of this encounter Care Teams Technology Risk Intern Relationship Specialty Start Date End Date Jamel Mansfield MD [address] [place] [address] [place] [address] PCP - General 03/04/17 documented as of this encounter Additional Source Comments The information contained in this document represents components of the legal health record. It is not the complete legal health record.[facility]
--- OUTSIDE RECORDS SUMMARY | 2025-02-14 15:35 | XMS_ITS | Encounter Summary ---
Author Organization [facility] Address [address] [place] [address] [address] [place] [address] Phone Care Team Providers Care Pre Sales Network Engineer Name Role Phone Jamel Mansfield MD Primary Care Provider [phone] [phone] Encounter Details Date Type Department Care Team (Late st Contact Info) Description 07/23/2020 Procedure Pass Echo Lab [place] [place] [address] Social History Tobacco Use Types Packs/Day Years [...] Description 02/16/2025 3:20 PM EDT Office Visit [facility] [address] [place] [address] 3rd Floor, [address] [place] [address] Darryl Khan MD [address] [place] [address] [email or web address] documented as of this encounter Visit Diagnoses Not on filedocumented in this encounter Additional Health Concerns Infection Onset Date Last Indicated Resolved Time CoV-Risk Comment:Per note documentation 09/14/2022 09/14/2022 3 1:18 PM EDT documented as of this encounter Care Teams Pre Sales Network Engineer Relationship Specialty Start Date End Date Jamel Mansfield MD [address] [place] [address] [place] [address] PCP - General 03/04/17 documented as of this encounter Additional Source Comments The information contained in this document represents components of the legal health record. It is not the complete legal health record.[facility]
--- OUTSIDE RECORDS SUMMARY | 2025-02-14 15:35 | XMS_ITS | Encounter Summary ---
Author Organization [facility] Address [facility] [address] [place] [address] Phone Care Team Providers Care Pipe Line Gauger Name Role Phone Jamel Mansfield MD Primary Care Provider [phone] [phone] Encounter Details Date Type Department Care Team (Late st Contact Info) Description 02/16/2024 Procedure Pass Echo Lab [facility] [place] [address] Social History Tobacco Use Types Packs/Day Years [...] 02/16/2025 3:20 PM EDT Office Visit [facility] [address] [place] [address] 3rd Floor, [address] [place] [address] Darryl Khan MD [address] [place] [address] documented as of this encounter Visit Diagnoses Not on filedocumented in this encounter Care Teams Pipe Line Gauger Relationship Specialty Start Date End Date Jamel Mansfield MD [address] [place] [address] Dr [address] [place] [address] PCP - General 03/04/17 documented as of this encounter Additional Source Comments The information contained in this document represents components of the legal health record. It is not the complete legal health record.[facility]
--- OUTSIDE RECORDS SUMMARY | 2025-02-14 15:35 | XMS_ITS | Encounter Summary ---
Author Organization [facility] Address [facility] [address] [place] [address] Phone Care Team Providers Care Manager Reimbursement Name Role Phone Jamel Mansfield MD Primary Care Provider [phone] [phone] Encounter Details Date Type Department Care Team (Late st Contact Info) Description 04/24/2020 Procedure Pass Echo Lab [place] [place] [address] Social History Tobacco Use Types Packs/Day Years [...] Description 02/16/2025 3:20 PM EDT Office Visit [facility] [address] [place] [address] 3rd Floor, [address] [place] [address] Darryl Khan MD [address] [place] [address] [email or web address] documented as of this encounter Visit Diagnoses Not on filedocumented in this encounter Additional Health Concerns Infection Onset Date Last Indicated Resolved Time CoV-Exposed Comment:Close contact 04/30/2020 05/05/2020 05/14/2020 1:25 AM EST CoV-Risk Comment:Per note documentation 09/14/2022 09/14/2022 3 1:18 PM EDT documented as of this encounter Care Teams Manager Reimbursement Relationship Specialty Start Date End Date Jamel Mansfield MD [address] [place] [address] [place] [address] PCP - General 03/04/17 documented as of this encounter Additional Source Comments The information contained in this document represents components of the legal health record. It is not the complete legal health record.[facility]
--- OUTSIDE RECORDS SUMMARY | 2025-02-14 15:35 | XMS_ITS | Encounter Summary ---
Author Organization [facility] Address [facility] [address] [place] [address] Phone Care Team Providers Care Boat Person Name Role Phone Jamel Mansfield MD Primary Care Provider [phone] [phone] Encounter Details Date Type Department Care Team (Late st Contact Info) Description 09/28/2022 Procedure Pass [facility] [address] [place] [address] Social History Tobacco Use Types Packs/Day Years [...] Description 02/16/2025 3:20 PM EDT Office Visit [facility] [address] [place] [address] 3rd Floor, [address] [place] [address] Darryl Khan MD [address] [place] [address] [email or web address] documented as of this encounter Visit Diagnoses Not on filedocumented in this encounter Care Teams Boat Person Relationship Specialty Start Date End Date Jamel Mansfield MD [address] [place] [address] [address] PCP - General 03/04/17 documented as of this encounter Additional Source Comments The information contained in this document represents components of the legal health record. It is not the complete legal health record.[facility]
--- OUTSIDE RECORDS SUMMARY | 2025-02-14 15:35 | XMS_ITS | Encounter Summary ---
Author Organization [facility] Address [facility] [address] [place] [address] Phone Care Team Providers Care Engineering Manager Name Role Phone Jamel Mansfield MD Primary Care Provider [phone] [phone] Encounter Details Date Type Department Care Team (Late st Contact Info) Description 09/25/2022 Procedure Pass [facility] Scan - [address] [address] Social History Tobacco Use Types Packs/Day Years [...] Description 02/16/2025 3:20 PM EDT Office Visit [facility] 3rd Floor, [address] [place] [address] Darryl Khan MD [address] [place] [address] [email or web address] documented as of this encounter Visit Diagnoses Not on filedocumented in this encounter Care Teams Engineering Manager Relationship Specialty Start Date End Date Jamel Mansfield MD [address] [place] [address] [address] PCP - General 03/04/17 documented as of this encounter Additional Source Comments The information contained in this document represents components of the legal health record. It is not the complete legal health record.[facility]
--- OUTSIDE RECORDS SUMMARY | 2025-02-14 15:35 | XMS_ITS | Encounter Summary ---
Author Organization [facility] Address [address] [place] [address] [address] [place] [address] Phone Care Team Providers Care Chemical Treatment Operator Name Role Phone Jamel Mansfield MD Primary Care Provider [phone] [phone] Encounter Details Date Type Department Care Team (Late st Contact Info) Description 02/16/2022 Procedure Pass Echo Lab [place] [place] [address] Social History Tobacco Use Types Packs/Day Years [...] Description 02/16/2025 3:20 PM EDT Office Visit [facility] [address] [place] [address] 3rd Floor, [address] [place] [address] Darryl Khan MD [address] [place] [address] [email or web address] documented as of this encounter Visit Diagnoses Not on filedocumented in this encounter Additional Health Concerns Infection Onset Date Last Indicated Resolved Time CoV-Risk Comment:Per note documentation 09/14/2022 09/14/2022 3 1:18 PM EDT documented as of this encounter Care Teams Chemical Treatment Operator Relationship Specialty Start Date End Date Jamel Mansfield MD [address] [place] [address] [place] [address] PCP - General 03/04/17 documented as of this encounter Additional Source Comments The information contained in this document represents components of the legal health record. It is not the complete legal health record.[facility]
--- OUTSIDE RECORDS SUMMARY | 2025-02-14 15:35 | XMS_ITS | Encounter Summary ---
Author Organization [facility] Address [address] [place] [address] [address] [place] [address] Phone Care Team Providers Care Residential Mental Health Worker Name Role Phone Jamel Mansfield MD Primary Care Provider +1 [phone] Encounter Details Date Type Department Care Team (Late st Contact Info) Description 07/16/2021 Procedure Pass Echo Lab [place] [place] [address] Social History Tobacco Use Types Packs/Day Years [...] Description 02/16/2025 3:20 PM EDT Office Visit [facility] [address] [place] [address] 3rd Floor, [address] [place] [address] Darryl Khan MD [address] [place] [address] [email or web address] documented as of this encounter Visit Diagnoses Not on filedocumented in this encounter Additional Health Concerns Infection Onset Date Last Indicated Resolved Time CoV-Risk Comment:Per note documentation 09/14/2022 09/14/2022 3 1:18 PM EDT documented as of this encounter Care Teams Residential Mental Health Worker Relationship Specialty Start Date End Date Jamel Mansfield MD [address] [place] [address] [place] [address] PCP - General 03/04/17 documented as of this encounter Additional Source Comments The information contained in this document represents components of the legal health record. It is not the complete legal health record.[facility]
--- OUTSIDE RECORDS SUMMARY | 2025-02-14 15:36 | XMS_ITS | Clinical Summary ---
Author Organization [facility] Address [address] [place] [address] Drive [address] [place] [address] Phone Care Team Providers Care Can Tender Name Role Phone Jamel Mansfield MD Primary Care Provider [phone] [phone] Allergies Active Allergy Reactions Criticality Noted Date Comments Iodinated Contrast Media Hives 09/04/2017 Penicillins Hives 09/04/2017 Medications lansoprazole (PREVACID) 30 MG capsule Take 1 capsule by mouth daily. Active traZODone (DESYREL) 50 MG tablet Orally Once a day Active montelukast (SINGULAIR) 10 mg tablet Take 1 tablet by mouth every evening. Active ferrous sulfate 325 mg (65 mg robinson iron) tablet Take 325 mg by mouth [...] daily. Active cyanocobalamin (VITAMIN B-12) 500 mcg/spray [place] 500 mcg by Right Nare route. Active [...] a surgical candidate for valve repair through [facility]. She declined obtaining a second opinion, she is not interested in undergoing open heart surgery at her age. We did discuss potential for TAVR versus enrollment in [place] trial with possible TMVR. The exact inclusion [...] torsemide 10 mg fdaily -Patient was at [facility] at the end of July with [...] to obtain a lipid panel from the [facility] system. Goal LDL is less than 70. [...] of claudication. I recommended she follow-up with [facility] vascular who has been managing this [...] frequently at her PCP office in the [facility] system. I have discussed with her that given her extensive peripheral arterial disease, she should have an LDL of less than 70. We will try to obtain a lipid panel from [facility]. She is on 40 mg of atorvastatin. [...] Department Care Team Description 01/09/2025 Orders Only [facility] [address] [facility], [address] [place] [address] Ashley Hernandez CNP 01/02/2025 Orders Only [facility] [address] [facility], [address] [place] [address] Ashley Hernandez CNP 12/01/2024 Telephone [facility] [address] rodriguez [facility], [address] [place] [address] Wiliam Briggs TAVR/TMVR Referral 11/27/2024 2:30 PM EDT Office Visit [facility] [address] rodriguez [facility], [address] [place] [address] Ashley Hernandez CNP Valvular heart disease (Primary Dx); PAF (paroxysmal atrial fibrillation); Peripheral vascular disease; Primary hypertension; Chronic heart failure with preserved ejection fraction 11/27/2024 Telephone [facility] [address] [facility], [address] [place] [address] Wiliam Briggs 11/17/[address] [facility], [address] [place] [address] Thomas Nance MD Medication Refill from Last [...] Description 02/16/2025 3:20 PM EDT Office Visit [facility] [address]rd Floor, [address] [place] [address] Darryl Khan MD [address] [place] [id number] [email or web address] Maintenance Due Date Last Done Comments [...] EST) SODIUM 139 133 - 146 mmol/L [facility] CHLORIDE 105 96 - 108 mmol/L [facility] POTASSIUM 4.0 3.3 - 5.1 mmol/L [facility] CO2 22 21 - 35 mmol/L [facility] BUN 33(H) 6 - 19 mg/dL [facility] CREATININE 1.60(H) 0.5 - 1.5 mg/dL [facility] GLUCOSE 189(H) 70 - 99 mg/dL [facility] CALCIUM 9.6 8.4 - 10.3 mg/dL [facility] EGFR 32(L) >59 mL/min/1.7 3m2 [facility] Comment:Estimated glomerular filtration rate calculated using the CKD-EPI refit equation. ANION GAP 16 10 - 20 mmol/L [facility] Blood 06/21/2024 1:18 PM EST 06/21/2024 1:20 PM EST us Gaudencio Whitfield MD LAB BLOOD ORDERABLES Final Resul t Performing Organization Address [facility]/ZIP Co de Phone Number [address] [address] * (ABNORMAL) Hemoglobin A1c (09/15/2022 5:46 AM EDT) HEMOGLOBIN A1C 6.1(H) 4.3 - 5.8 % [facility] Blood 09/15/2022 5:46 AM EDT 09/15/2022 6:11 AM EDT us Kayla Alfred DO LAB BLOOD ORDERABLES Final Re sult Performing Organization Address City/[facility]/ZIP Co de Phone Number [address] [address] from Last 3 Months or Most Recently Relevant to Health Maintenance Insurance [address] [place] [id number] MEDICARE PART A & B MEDICARE SUPPLEMENT [address] [place] [id number] MEDICARE PART A & B MEDICARE SUPPLEMENT [address] [place] [id number] MEDICARE PART A & B MEDICARE SUPPLEMENT MEDICARE PART A & B MEDICARE SUPPLEMENT MEDICARE PART A & B MEDICARE SUPPLEMENT [address] [place] [id number] MEDICARE PART A & [place] [address] [address] [place] [address] MEDICARE SUPPLEMENT [address] [place] [phone] MEDICARE PART A & B MEDICARE SUPPLEMENT [address] [place] [address] MEDICARE PART A & B Member Subscriber Plan / Payer (Ef fective 2004-Present) Name:Alice Martinez Member ID:[id number] Relation to Subscriber:Self Name:Alice Martinez Subscriber ID:[id number] Payer ID:[id number] Group ID:Not on file Type:Medicare Address: [employer] [address] MEDICARE SUPPLEMENT MEDICARE PART A & B MEDICARE SUPPLEMENT Advance Directives For more information, please contact: [phone] (9AM - 5PM [facility], Wednesday-Wednesday) Documents on File Type Date Recorded Patient Transit Vehicle Inspector Expl anation Power of Brake Operator Helper Healthcare Proxy 08/20/2020 Healthcare Proxy * Full Code (Latest Code Status on File) Date Activated Date Inactivated Comments 09/14/2022 3:33 PM Question Answer Comments Code Status Confirmed With: Patient Care Teams Can Tender Relationship Specialty Start Date End Date Jamel Mansfield MD [address] [place] [address] [place] [address] PCP - General 03/04/17 Additional Source Comments The information contained in this document represents components of the legal health record. It is not the complete legal health record.[facility]
--- OUTSIDE RECORDS SUMMARY | 2025-02-14 15:36 | XMS_ITS | Encounter Summary ---
Author Organization [facility] Address [address] [place] [address] Phone Care Team Providers Care Statement Request Clerk Name Role Phone Jamel Mansfield MD Primary Care Provider [phone] [phone] Encounter Details Date Type Department Care Team (Late st Contact Info) Description 01/09/2025 Orders Only [facility], [address] [place] [address] Ashley Hernandez, DIAMOND SAW OPERATOR [address] [place] [address] [email or web address] Social History Tobacco Use Types Packs/Day Years [...] Description 02/16/2025 3:20 PM EDT Office Visit [facility] [address] [facility] 3rd Floor, [address] [place] [address] Darryl Khan MD [address] [place] [address] [email or web address] documented as of this encounter Visit Diagnoses Not on filedocumented in this encounter Care Teams Statement Request Clerk Relationship Specialty Start Date End Date Jamel Mansfield MD [address] [place] [address] [address] PCP - General 03/04/17 documented as of this encounter Additional Source Comments The information contained in this document represents components of the legal health record. It is not the complete legal health record.[facility]
== END 2025-02-14 14:55 | disposition home or self-care (01) ==
LOC: HO.HOS 14:25
PROVIDERS: PCP Internal Medicine; Visit Provider Orthopaedic Surgery
DX: M25.511 Pain in right shoulder (principal); M25.811 Other specified joint disorders, right shoulder
CPT/HCPCS: 20610; 99213

== ENCOUNTER → 2025-02-14 14:25 | Outpatient (BNVA) | payer MEDICARE, OTHER, SELFPAY | PROVIDERS: PCP Internal Medicine; Visit Provider Orthopaedic Surgery | DX: M25.511 Pain in right shoulder (principal); M25.811 Other specified joint disorders, right shoulder | CPT/HCPCS: 20610; 99212; J1010; J2003 ==

== ENCOUNTER 2025-03-29 13:09 | Outpatient (AMB) | payer MEDICARE, OTHER, SELFPAY ==
--- OUTSIDE RECORDS SUMMARY | 2025-03-07 08:00 | XMS_ITS ---
Author Organization [facility] Address [address] [place] [address] Care Team Providers Care Cobbler Apprentice Name Role Phone Donal BELTRÁN, Jamel Primary Care Provider UnaSteven Edwards Unavailable [phone] REASON FOR VISIT anemia Encounters Encounter Location Date Provider Diagnosis [facility] [address] [place] [address] 03/07/2025 Stveen Haji Plan Of Treatment Next Appt Details Provider Name:Steven Haji , 03/20/2026 01:00:00 PM, [address], [address], [place], [address], Progress Notes * SUKHDEEP CARTER ADOB: 0 (84 yo F)Acc No.[id number]:03/07/2025 Progress Notes Patient: Pedro RODRIGUEZ SUKHDEEP Kiya Provider: Teresita Haji MD :1940 A ge:84 Y S ex:Female Date:03/07/2025 Address:[address] [place] [address] [address], [place], [place] Pcp:Jamel Mansfield MD Subjective: * Chief Complaints: * 1 . Anemia. * Medical History: Objective: * Vitals: Assessment: Plan: * Treatment: * * The named appointment provid er may or may not be the originator of this progress note, and it is not deemed complete until electronically signed by the appointment provider. Sign off status: Pending * Provider: Teresita Haji MD Date: 1 Generated for Britton clemens/Fabienne/Thomas on: 1 05/29/2024 04:27 PM EST
--- OUTSIDE RECORDS SUMMARY | 2025-03-20 08:00 | XMS_ITS ---
Author Organization [facility] Address [address] [place] [address] Care Team Providers Care Unit Coordinator Name Role Phone Donal BELTRÁN, [place] Primary Care Provider Steven Irving Unavailable [phone] Allergies Allergen (clinical drug ingredient) Drug/Non Drug Allergy documented on EMR Reaction Allergy Type Onset Date Status Penicillin Unknown Drug Allergy Active contrast dye (uncoded) Unknown Allergy Active REASON FOR VISIT Patient presents today for anemia Medications Medication SIG (Take, Route, Frequency, Duration) Notes Start Date End Date Status Breo Ellipta 200-25 MCG/ACT Inhalation; Duration: 30 Active Lomotil 2.5-0.025 MG Take 1 or 2 Orally Every morning on a daily and regular basis to try to prevent diarrhea, and then take 1 or 2 every 4 to 6 hours as needed for diarrhea later in the day; Duration: 30 days 2023 Active Allopurinol 100 MG Oral; Duration: 90 Active Clopidogrel Bisulfate 75 MG Oral; Duration: 90 Not-Takin g Cilostazol Not-Takin g Januvia Active Citalopram Hydrobromide Active Mirtazapine Active iron 65 mg 1 tablet Oral bid A ctive Montelukast Sodium A ctive Atorvastatin Calcium 40 MG 1 tablet Oral ly Once a day Active Vitamin B 12 5000 mg tablet Orally once a day Active Lansoprazole 30 MG 1 capsule before a meal Orally twice a day /prn Active Vitamin D-3 Active Dilt-XR Active traZODone HCl 50 MG 1 tablet at bedtime Orally Once a day Active dilTIAZem HCl ER 240 MG 1 tablet Orally Once a day; Duration: 30 day(s) Active Warfarin Sodium 2 MG 1 tablet Orally Onc e a day; Duration: 30 day(s) Active Metoprolol Succinate 100 MG 1 capsule Orally Once a day; Duration: 30 day(s) Active Torsemide 20 MG 1 tablet Orally Ever y other day Active Farxiga 5 MG 1 tablet Orally Once a day Active Spironolactone 25 MG 1 tablet Orally Melissa ly; Duration: 30 days Active Potassium 1 tab Oral; Duration : 14 days Active Incruse Ellipta 62.5 MCG/ACT 1 puff Inhalation Once a day Active Social History Tobacco Use: Social History Observation Description Date Details (start date - stop date) Former Smoker NA - NA Tobacco Use/Smoking Question Answer Notes Patient is a former smoker AUDIT-C (Standard) Question Answer Notes Did you have a drink contain ing alcohol in the past year? Yes How often did you have a dri nk containing alcohol in the past year? 2 to 4 times a month (2 points) How many drinks did you have on a typical day when you were drinking in the past year? 3 or 4 drinks (1 point) How often did you have six o r more drinks on one occasion in the past year? Never (0 point) Points 3 Interpretation Positive Section Notes: Nonsmoker > 10 yrs; no sig a lcohol Problems Problem Type SNOMED Code ICD Code Onset Dates Problem Status W/U Status Risk Notes Problem Constipation (40469955) Constipation (K59.00) Active confirmed Vital Signs Temperature 96.7 degrees Fahrenheit 03/20/20 25 Blood pressure systolic 001 mm Hg 03/20/20 25 Blood pressure diastolic 01 mm Hg 025 Height 62.5 in 03/20/2025 Weight 186.6 lbs 03/20/2025 BMI 33.58 kg/m2 03/20/2025 Encounters Encounter Location Date Provider Diagnosis [facility] [address] [place] [address] 03/20/2025 Steven Haji Constipation K59.00 ; Irritable bowel syndrome with both constipation and diarrhea K58.2 and Gastroesophageal reflux disease, esophagitis presence not specified K21.9 Assessments Encounter Date Diagnosis (ICD Code) Assessment Notes Treatment Notes Treatment Clinical Notes Section Notes 03/20/2025 Constipation (ICD-10 - K59.00) Use the stool softener every day for help with the constipation Overall, Alice appears quite well considering her age and all of her medical issues. She does not appear to be having any new or worrisome GI complaints. Her bowel pattern presently seems to be stable although I did review with her that I would like her to use the stool softener daily rather than just once a week to see if that can help relieve some of her constipation. We did review that the constipation may very well be in relation to her iron supplement. If her blood count remained stable she could probably stop that at some point. Her anemia from the past had resolved and remained stable once she was switched from her Plavix and aspirin to her current regimen of the Coumadin. We did review her previous CT scan and at this time there does not appear to be any sign of pancreatic disease. She is aware of the atrophic right kidney and some renal insufficiency. I did advise her to continue her daily pantoprazole for her history of reflux and the hiatal hernia. That seems to be working well for her in that regard. At this point I do not think she needs any diagnostic testing or therapeutic intervention on my part otherwise. I have advised her to see me in 1 year for a follow-up visit but did advise her to certainly contact me in the interim if she has any problems or questions I can be of assistance with. Alice was very comfortable with this plan. Thank you again for allowing me to participate in Alice's care. Please do not hesitate to contact me if I can be of any further assistance in the future. 03/20/2025 Irritable bowel syndrome with both constipation and diarrhea (ICD-10 - K58.2) Overall, Alice appears quite well considering her age and all of her medical issues. She does not appear to be having any new or worrisome GI complaints. Her bowel pattern presently seems to be stable although I did review with her that I would like her to use the stool softener daily rather than just once a week to see if that can help relieve some of her constipation. We did review that the constipation may very well be in relation to her iron supplement. If her blood count remained stable she could probably stop that at some point. Her anemia from the past had resolved and remained stable once she was switched from her Plavix and aspirin to her current regimen of the Coumadin. We did review her previous CT scan and at this time there does not appear to be any sign of pancreatic disease. She is aware of the atrophic right kidney and some renal insufficiency. I did advise her to continue her daily pantoprazole for her history of reflux and the hiatal hernia. That seems to be working well for her in that regard. At this point I do not think she needs any diagnostic testing or therapeutic intervention on my part otherwise. I have advised her to see me in 1 year for a follow-up visit but did advise her to certainly contact me in the interim if she has any problems or questions I can be of assistance with. Alice was very comfortable with this plan. Thank you again for allowing me to participate in Alice's care. Please do not hesitate to contact me if I can be of any further assistance in the future. 03/20/2025 Gastroesophageal reflux disease, esophagitis presence not specified (ICD-10 - K21.9) Overall, Alice appears quite well considering her age and all of her medical issues. She does not appear to be having any new or worrisome GI complaints. Her bowel pattern presently seems to be stable although I did review with her that I would like her to use the stool softener daily rather than just once a week to see if that can help relieve some of her constipation. We did review that the constipation may very well be in relation to her iron supplement. If her blood count remained stable she could probably stop that at some point. Her anemia from the past had resolved and remained stable once she was switched from her Plavix and aspirin to her current regimen of the Coumadin. We did review her previous CT scan and at this time there does not appear to be any sign of pancreatic disease. She is aware of the atrophic right kidney and some renal insufficiency. I did advise her to continue her daily pantoprazole for her history of reflux and the hiatal hernia. That seems to be working well for her in that regard. At this point I do not think she needs any diagnostic testing or therapeutic intervention on my part otherwise. I have advised her to see me in 1 year for a follow-up visit but did advise her to certainly contact me in the interim if she has any problems or questions I can be of assistance with. Alice was very comfortable with this plan. Thank you again for allowing me to participate in Soumyas care. Please do not hesitate to contact me if I can be of any further assistance in the future. Plan Of Treatment Treatment Notes Assessment Notes Constipation Use the stool soften er every day for help with the constipation Next Appt Details Follow Up: 1 Year, Reason: Provider Name:Steven Valdez Raissa , 03/20/2026 01:00:00 PM, [address], [address], [place], [address], Progress Notes * ALICE CARTER ADOB: 0 (84 yo F)Acc No.[id number]:03/20/2025 Progress Notes Patient: ALICE LOYOLA Provider: Teresita Haji MD :[id number] A ge:84 Y S ex:Female Date:03/20/2025 Address:[address] [place], [place] [id number] Pcp:Jamel Mansfield MD Subjective: * Chief Complaints: * 1 . Patient presents today for anemia. * HPI: i ncontinence: I saw Alice in follow-up today in regard to her previous anemia, constipation, and question of pancreatic insufficiency. I last saw Alice in February 2024. Since that time things have been stable from a GI standpoint. She had previously been having diarrhea but since I last saw her she she describes a sense of constipation. She does have a bowel movement every day but does have associated straining. She does remain on her iron supplement at least once a day. She has been using an occasional stool softener but not daily. She remains on her daily pantoprazole and enjoys a good appetite. She denies any significant heartburn or dysphagia. She denies any abdominal pain, jaundice, or any unintentional weight loss. When I saw her last year I did have her undergo a CT scan of the abdomen due to a concern about pancreatic insufficiency based on a couple of stool specimens. A CT scan describes the pancreas as normal but did reveal her known hiatal hernia, some constipation, and an atrophic right kidney. She does have some chronic renal insufficiency. However, since I saw her last year she has had no further episodes of diarrhea and has the above described bowel pattern. Laboratories from the end of December revealed a normal hemoglobin of 13.4 with a normal MCV, normal electrolytes, BUN 30, creatinine 1.4, and a completely normal liver profile. * Medical History: 0 10/25/2009 Colonoscopy- neg except for hyperplastic polyps- no IBD, Tubular adenomas removed in 2002, GERD-EGD in 1997- HH, but otherwise negative; EGD 05/2014 small HH, no esophagitis, small area of Aguilera's- no dysplasia, Depression, Hyperlipidemia, NIDDM, COPD, Hypertension, Denies CO or CVA, Microcytic anemia in 2015- hemoglobin 10.8 with MCV 72 in April 2016- - she underwent an upper endoscopy and colonoscopy in June of 2016- the upper endoscopy revealed only a small hiatal hernia and duodenal biopsies were negative for celiac disease; the colonoscopy revealed nonbleeding angiodysplasias, a small tubular adenoma and hyperplastic polyp, and biopsies were negative for any sign of microscopic or collagenous colitis- after being treated with iron her hemoglobin increased to 13.4 with a normal MCV in October of 2016, Colonoscopy with AVM's as above, Urinary incontinence, Fecal Incontinence, Peripheral vascular disease with procedures as below, Recurrent iron deficiency anemia with heme-positive stool in 2020 while on aspirin and Plavix for peripheral vascular disease. She had a normal CBC in 2019 when she was not on any blood thinners. Toward the end of 2020 she did receive a blood transfusion and iron infusion. In April 2021 her aspirin was stopped but she did continue the Plavix. Her Hgb improved to 12.6 on 06/30/2021, She describes a history of aortic stenosis and mitral valve stenosis. She is being followed by a lay health advocate , Hospitalized 01/2022 for recurrent anemia- Hgb 7.7 and needed 2 u PRBC- Hgb 8.9 on 01/22, Negative small bowel video capsule study in 2021, Her anemia improved and was resolved as of the 06/2022 OV while on Iron BID and Plavix, but off her aspirin, Hospitalized in Spring 2022 with pneumonia, Afib, and CHF, and rehab for 2 weeks. , Diarrhea-2023 low stool trypsin and elastase levels, stool for fecal fat was negative. 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 This was not treated as I was not really convinced it was a true pathogen and I did not want to risk giving her an antibiotic that could cause a secondary diarrhea or C. difficile infection, Atrial fibrillation, Chronic renal insufficiency- atrophic right kidney. * Surgical History: A ppendectomy , Complete hysterectomy , Lumpectomy-benign , Back surgery , Bladder suspension , Right hip fracture with screws in 01/2014 after a fall , Left toe surgery , Vascular stenting for LE's with an upside down Y from aorta into iliacs as described by the patient-Dr. Siddiqi at [facility] 08/14/2020 and 11/2020. * Hospitalization/Major Diagno stic Procedure: H ospitalized for 2 weeks due to pneumonia, CHF, and Afib, and then rehab for 2 weeks. Spring 2022. * Family History: F ather: . M other: , diagnosed with Heart disease, Colon polyps. M aternal Grand Mother: , diagnosed with Colon cancer. No colorectal cancer in 1st degree relatives Granddaughter(her daughter's daughter) has Crohn's Daughter has microscopic colitis Grandmother had colon cancer no family hx of liver cancer. * Social History: T obacco Use: T obacco Use/Smoking P atient is a f ormer smoker. D rugs/Alcohol: A lcohol Screen P oints: 2, Interpretation: Negative. M iscellaneous: M arital status: . Occupation: retired. D rug/Alcohol: A ERNESTO-C (Standard) D id you have a drink containing alcohol in the past year? Y es,?How often did you have a drink containing alcohol in the past year? 2 to 4 times a month (2 points), H ow many drinks did you have on a typical day when you were drinking in the past year? 3 or 4 drinks (1 point), H ow often did you have six or more drinks on one occasion in the past year? N ever (0 point), P oints 3 , I nterpretation P ositive. N onsmoker > 10 yrs; no sig alcohol. * Medications: T aking Farxiga 5 MG Tablet 1 tablet Orally Once a day , Taking Spironolactone 25 MG Tablet 1 tablet Orally Daily , Taking Potassium 1 tab Oral , Taking Incruse Ellipta 62.5 MCG/ACT Aerosol Powder Breath Activated 1 puff Inhalation Once a day , Taking dilTIAZem HCl ER 240 MG Tablet Extended Release 24 Hour 1 tablet Orally Once a day , Taking Warfarin Sodium 2 MG Tablet 1 tablet Orally Once a day , Taking Metoprolol Succinate 100 MG Capsule ER 24 Hour Sprinkle 1 capsule Orally Once a day , Taking Torsemide 20 MG Tablet 1 tablet Orally Every other day , Taking traZODone HCl 50 MG Tablet 1 tablet at bedtime Orally Once a day , Taking Atorvastatin Calcium 40 MG Tablet 1 tablet Orally Once a day , Taking Vitamin B 12 5000 mg 1 tablet Orally once a day , Taking Lansoprazole 30 MG Capsule Delayed Release 1 capsule before a meal Orally twice a day /prn , Taking Vitamin D-3 , Taking Dilt-XR , Taking Montelukast Sodium , Taking Januvia , Taking Citalopram Hydrobromide , Taking Mirtazapine , Taking iron 65 mg tablet 1 tablet Oral bid , Taking Breo Ellipta 200-25 MCG/ACT Aerosol Powder Breath Activated Inhalation , Taking Lomotil 2.5-0.025 MG Tablet Take 1 or 2 Orally Every morning on a daily and regular basis to try to prevent diarrhea, and then take 1 or 2 every 4 to 6 hours as needed for diarrhea later in the day , Taking Allopurinol 100 MG Tablet Oral , Not-Taking/PRN Clopidogrel Bisulfate 75 MG Tablet Oral , Not-Taking/PRN Cilostazol , Medication List reviewed and reconciled with the patient * Allergies: P enicillin, contrast dye. Objective: * Vitals: W t: 186.6 lbs, Ht: 62.5 in, BMI: 33.58 Index, BP: 001/01 mm Hg, Temp: 96.7, Wt- k.64. Assessment: * Assessment: 1. C onstipation - K59.00 (Primary) 2 . I rritable bowel syndrome with both constipation and diarrhea - K58.2 3 . G astroesophageal reflux disease, esophagitis presence not specified - K21.9 Overall, Alice appears quite well considering her age and all of her medical issues. She does not appear to be having any new or worrisome GI complaints. Her bowel pattern presently seems to be stable although I did review with her that I would like her to use the stool softener daily rather than just once a week to see if that can help relieve some of her constipation. We did review that the constipation may very well be in relation to her iron supplement. If her blood count remained stable she could probably stop that at some point. Her anemia from the past had resolved and remained stable once she was switched from her Plavix and aspirin to her current regimen of the Coumadin. We did review her previous CT scan and at this time there does not appear to be any sign of pancreatic disease. She is aware of the atrophic right kidney and some renal insufficiency. I did advise her to continue her daily pantoprazole for her history of reflux and the hiatal hernia. That seems to be working well for her in that regard. At this point I do not think she needs any diagnostic testing or therapeutic intervention on my part otherwise. I have advised her to see me in 1 year for a follow-up visit but did advise her to certainly contact me in the interim if she has any problems or questions I can be of assistance with. Alice was very comfortable with this plan. Thank you again for allowing me to participate in Alice's care. Please do not hesitate to contact me if I can be of any further assistance in the future. Plan: * Treatment: * Preventive Medicine: Counseling: C are goal follow-up plan: A jaclyn Normal BMI Follow-up D ietary management education, guidance, and counseling, B CO management provided Y gal. Urinary Incontinence: U rinary Incontinence A ssessment: P resent, P mario of care documented: Y es, T ype of plan of care: B ladder training. Screenings: F all Risk Screening F all Risk Assessment: N o falls in the past year, S creening: N o falls in the past year, A ssessment: N ot performed, no reason specified, P mario of Care: N ot documented, no reason specified. * Follow Up: 1 Year * * The named appointment provid er may or may not be the originator of this progress note, and it is not deemed complete until electronically signed by the appointment provider. Sign off status: Pending * Provider: Teresita Haji MD Date: 05/20/2024 Generated for Britton clemens/Fabienne/Marioitting on: 05/29/2024 04:28 PM EST History and Physical Notes * HPI (History of Present Illness) Category Sub-Category Detail Notes Category Not es incontinence I saw Alice in follow-up today in regard to her previous anemia, constipation, and question of pancreatic insufficiency. I last saw Alice in February 2024. Since that time things have been stable from a GI standpoint. She had previously been having diarrhea but since I last saw her she she describes a sense of constipation. She does have a bowel movement every day but does have associated straining. She does remain on her iron supplement at least once a day. She has been using an occasional stool softener but not daily. She remains on her daily pantoprazole and enjoys a good appetite. She denies any significant heartburn or dysphagia. She denies any abdominal pain, jaundice, or any unintentional weight loss. When I saw her last year I did have her undergo a CT scan of the abdomen due to a concern about pancreatic insufficiency based on a couple of stool specimens. A CT scan describes the pancreas as normal but did reveal her known hiatal hernia, some constipation, and an atrophic right kidney. She does have some chronic renal insufficiency. However, since I saw her last year she has had no further episodes of diarrhea and has the above described bowel pattern. Laboratories from the end of December revealed a normal hemoglobin of 13.4 with a normal MCV, normal electrolytes, BUN 30, creatinine 1.4, and a completely normal liver profile.
--- OUTSIDE RECORDS SUMMARY | 2025-03-28 23:59 | XMS_ITS | Continuity of Care Document ---
Author Organization [facility]i fanta Address [address] [place] [address] [place] [address]- Care Team Providers Care Six Color Press Operator Name Role Phone Donal BELTRÁN, Jamel Jin Primary Care Physician [phone] [place] [facility] [place](s): 02/26/25 - 03/28/25 [facility] [address] [place] [address] Drive [address] [place], [place] [address] Encounter Type: Triage Allergies, Adverse Reactions, Alerts Substance Criticality Severity Reaction Reaction Severity Status penicillins hives age 11 Activ e Contrast Dye hives neck area A ctive Immunizations Given and Recorded Vaccine Date Status Refusal Reason [id number] bivalent booster vax 03/16/22 Recorded SARS-CoV-2 (COVID-19) mRNA-1273 vaccine 10/06/21 R ecorded SARS-CoV-2 (COVID-19) mRNA BNT-162b2 vac 03/14/21 Recorded SARS-CoV-2 (COVID-19) mRNA BNT-162b2 vac 07/12/20 Recorded SARS-CoV-2 (COVID-19) mRNA BNT-162b2 vac 06/21/20 Recorded Medications Advair Diskus 250 mcg-50 mcg inhalation powder Inhalation, 2 times a day Start Date: 06/16/18 Status: Ordered Medication Dispense Status: Completed Total Allowed Fills: 1 Fills Dispensed: 0 Allopurinol 100 mg, By Mouth, Daily in AM, Refills 0, Maintenance, 07/08/20 3:54:00 PM EST, Partial fill upon patient request if the prescription is for a schedule II opioid drug. Start Date: 07/08/20 Status: Ordered Medication Dispense Status: Completed Total Allowed Fills: 1 Fills Dispensed: 0 atorvastatin 80 mg oral tablet 1 tablet = 80 mg, By Mouth, Daily in AM, # 30 tablet, 0 Refills, Maintenance, 08/14/22 2:13:00 PM EDT, Tablet, [facility], Partial fill upon patient request if the prescription is for a schedule II opioid drug., 158, cm, 08/14/22 13:35:00 EDT, Height, 87.5, kg, 08/10/22 17:00:00 EDT, Dry Weight Start Date: 08/14/22 Status: Ordered Medication Dispense Status: Completed Quantity: 30.0 Unit: tablet Total Allowed Fills: 1 Fills Dispensed: 0 Cardizem CD 240 mg/24 hours oral capsule, extended release 240 mg, 1, capsule, By Mouth, Daily, # 30 capsule, Refills 0, Tot. Refills 0, Maintenance, 08/14/22 2:13:00 PM EDT, Route to Pharmacy Electronically, [facility], 158, cm, 08/14/22 13:35:00 EDT, Height, 87.5, kg, 08/10/22 17:00:00 EDT, Dry Weight Start Date: 08/14/22 Stop Date: 09/13/22 Status: Ordered Medication Dispense Status: Completed Quantity: 30.0 Unit: capsule Total Allowed Fills: 1 Fills Dispensed: 0 citalopram 40 mg oral tablet 40 mg, 1, tablet, By Mouth, Daily in AM, Refills 0, Maintenance, 04/07/19 4:11:34 PM EST Start Date: 04/07/19 Status: Ordered Medication Dispense Status: Completed Total Allowed Fills: 1 Fills Dispensed: 0 clopidogrel 75 mg oral tablet 1, tablet, By Mouth, Daily, # 90 tablet, Refills 3, Tot. Refills 3, Maintenance, 08/14/22 2:13:00 PMEDT, Route to Pharmacy Electronically, [facility], 158, cm, 08/14/22 13:35:00 EDT, Height, 87.5, kg, 08/10/22 17:00:00 EDT, Dry Weight Start Date: 08/14/22 Status: Ordered Medication Dispense Status: Completed Quantity: 90.0 Unit: tablet Total Allowed Fills: 4 Fills Dispensed: 0 ferrous sulfate 325 mg oral enteric coated tablet 325 mg, By Mouth, Daily, # 30 tablet, Refills 0, Tot. Refills 0, Maintenance, 08/14/22 2:13:00 PM EDT, Route to Pharmacy Electronically, [facility], Partial fill upon patient request if the prescription is for a schedule II opioid drug., 158, cm, 08/14/22 13:35:00 EDT, Height, 87.5, kg, 08/10/22 17:00:00 EDT, Dry Weight Start Date: 08/14/22 Status: Ordered Medication Dispense Status: Completed Quantity: 30.0 Unit: tablet Total Allowed Fills: 1 Fills Dispensed: 0 Flonase Daily, 0 Refills, Maintenance, 06/09/19 11:14:00 AM EST Start Date: 06/09/19 Status: Ordered Medication Dispense Status: Completed Total Allowed Fills: 1 Fills Dispensed: 0 glimepiride 1 mg oral tablet 1 tablet = 1 mg, By Mouth, Daily, # 30 tablet, 0 Refills, Maintenance, 08/10/22 5:22:00 PM EDT, Tablet, Partial fill upon patient request if the prescription is for a schedule II opioid drug. Start Date: 08/10/22 Status: Ordered Medication Dispense Status: Completed Quantity: 30.0 Unit: tablet Total Allowed Fills: 1 Fills Dispensed: 0 Januvia 100 mg oral tablet 1 tablet = 100 mg, By Mouth, Daily in AM, TAKE 1 TABLET BY MOUTH EVERY DAY Start Date: 06/16/18 Status: Ordered Medication Dispense Status: Completed Total Allowed Fills: 1 Fills Dispensed: 0 Magnesium Chloride = 400 mg, By Mouth, Daily in AM, 0 Refills, Maintenance, 06/16/18 4:07:08 PM EST Start Date: 06/16/18 Status: Ordered Medication Dispense Status: Completed Total Allowed Fills: 1 Fills Dispensed: 0 Metformin = 500 mg, By Mouth, 2 times a day, 0 Refills, Maintenance, 02/16/13 1:22:37 PM EDT Start Date: 02/16/13 Status: Ordered Medication Dispense Status: Completed Total Allowed Fills: 1 Fills Dispensed: 0 metoprolol 25 mg oral tablet, extended release 25 mg, 1, tablet, By Mouth, Daily, # 30 tablet, Refills 1, Tot. Refills 1, Maintenance, 08/14/22 2:14:00 PM EDT, Route to Pharmacy Electronically, [facility], Partial fill upon patient request if the prescription is for a schedule II opioid drug., 158, cm, 08/14/22 13:35:00 EDT, Height, 87.5, kg, 08/10/22 17:00:00 EDT, Dry Weight Start Date: 08/14/22 Status: Ordered Medication Dispense Status: Completed Quantity: 30.0 Unit: tablet Total Allowed Fills: 2 Fills Dispensed: 0 Montelukast = 10 mg, By Mouth, Daily in AM, 0 Refills, Maintenance, 07/08/20 3:52:00 PM EST, Partial fill upon patient request if the prescription is for a schedule II opioid drug. Start Date: 07/08/20 Status: Ordered Medication Dispense Status: Completed Total Allowed Fills: 1 Fills Dispensed: 0 pantoprazole 40 mg oral delayed release tablet = 40 mg, By Mouth, Daily, # 30 tablet, 1 Refills, Maintenance, 08/14/22 3:21:00 PM EDT, EC Tablet, 158, cm, 08/14/22 13:35:00 EDT, Height, 87.5, kg, 08/10/22 17:00:00 EDT, Dry Weight Start Date: 08/14/22 Status: Ordered Medication Dispense Status: Completed Quantity: 30.0 Unit: tablet Total Allowed Fills: 2 Fills Dispensed: 0 Remeron 15 mg oral tablet 1 tablet = 15 mg, By Mouth, Daily at bedtime, # 30 tablet, 0 Refills, Maintenance, 06/09/19 11:14:00AM EST, Tablet Start Date: 06/09/19 Status: Ordered Medication Dispense Status: Completed Quantity: 30.0 Unit: tablet Total Allowed Fills: 1 Fills Dispensed: 0 torsemide 20 mg oral tablet 1 tablet = 20 mg, By Mouth, Daily, # 30 tablet, 1 Refills, Maintenance, 08/14/22 2:15:00 PM EDT, Tablet, [facility], Partial fill upon patient request if the prescription is for a schedule II opioid drug., 158, cm, 08/14/22 13:35:00 EDT, Height, 87.5, kg, 08/10/22 17:00:00 EDT, Dry Weight Start Date: 08/14/22 Status: Ordered Medication Dispense Status: Completed Quantity: 30.0 Unit: tablet Total Allowed Fills: 2 Fills Dispensed: 0 Trazodone Tablet 50 mg, By Mouth, Daily at bedtime, Maintenance, 02/16/13 1:23:44 PM EDT Start Date: 02/16/13 Status: Ordered Medication Dispense Status: Completed Total Allowed Fills: 1 Fills Dispensed: 0 valsartan 160 mg oral tablet 160 mg, 1, tablet, By Mouth, Daily, # 30 tablet, Refills 1, Tot. Refills 1, Maintenance, 08/14/22 2:15:00 PM EDT, Route to Pharmacy Electronically, [facility], Partial fill upon patient request if the prescription is for a schedule II opioid drug., 158, cm, 08/14/22 13:35:00 EDT, Height, 87.5, kg, 08/10/22 17:00:00 EDT, Dry Weight Start Date: 08/14/22 Status: Ordered Medication Dispense Status: Completed Quantity: 30.0 Unit: tablet Total Allowed Fills: 2 Fills Dispensed: 0 Vitamin B12 = 5,000 mcg, By Mouth, Daily in AM, 0 Refills, Maintenance, 07/08/20 3:53:00 PM EST, Partial fill upon patient request if the prescription is for a schedule II opioid drug. Start Date: 07/08/20 Status: Ordered Medication Dispense Status: Completed Total Allowed Fills: 1 Fills Dispensed: 0 Vitamin D3 = 2,000 units, By Mouth, Daily in AM, 0 Refills, Maintenance, 07/08/20 3:55:00 PM EST, Partial fill upon patient request if the prescription is for a schedule II opioid drug. Start Date: 07/08/20 Status: Ordered Medication Dispense Status: Completed Total Allowed Fills: 1 Fills Dispensed: 0 warfarin 1 mg oral tablet 1 tablet = 1 mg, By Mouth, Daily, PRN Other, Take 1-2 tablets if INR is subtherapeutic., # 30 tablet, 0 Refills, Maintenance, 08/14/22 4:41:00 PM EDT, Tablet, [facility], Partial fill upon patient request if the prescription is for a schedule II opioid drug., 158, cm, 08/14/22 13:35:00EDT, Height, 87.5, kg, 08/10/22 17:00:00 EDT, Dry Weight Start Date: 08/14/22 Status: Ordered Medication Dispense Status: Completed Quantity: 30.0 Unit: tablet Total Allowed Fills: 1 Fills Dispensed: 0 warfarin 5 mg oral tablet 1 tablet = 5 mg, By Mouth, Daily, INR target 2-3, # 30 tablet, 0 Refills, Maintenance, 08/14/22 2:15:00 PM EDT, Tablet, [facility], Partial fill upon patient request if the prescription is for a schedule II opioid drug., 158, cm, 08/14/22 13:35:00 EDT, Height, 87.5, kg, 08/10/22 17:00:00 EDT, Dry Weight Start Date: 08/14/22 Status: Ordered Medication Dispense Status: Completed Quantity: 30.0 Unit: tablet Total Allowed Fills: 1 Fills Dispensed: 0 Problem List Condition Confirmation Course Effective Dates Status H ealth Status Informant AAA (abdominal aortic aneurysm) Confirmed Active Depression Confirmed Active GERD (gastroesophageal reflux disease) Confirmed Active Hyperlipidemia Confirmed Active Hypertension Confirmed Active Leukorrhea Confirmed Active PVD (peripheral vascular disease) Confirmed Active Severe obesity (BMI 35.0-39.9) with comorbidity Confirmed Active Non-insulin dependent type 2 diabetes mellitus Confirmed Active Social History Social History Type Response Smoking Status Former smoker, quit more than 30 days ago; Other: Quit 20 years; entered on: 06/16/18 Sex Sex Representation Female (finding) Patient Care team information Care Team Personnel Name: Joya Turner CNM Position: Reference Physician Member Role: Primary Care Nurse Address: [address] [place] [address]- Telecom: Name: Jamel Mansfield MD Position: Reference Physician Member Role: PCP Address: [address] [place] [address] Drive [address] [place] [address]- Telecom: Name: Dora ICFUENTESLexi Position: S RN Member Role: Primary Care Nurse Care Team Related Persons Name: YASMIN MARSH Insurance Providers Guarantor name: [facility] Level Chef Plan Information #: 1 Payer: MEDICARE B Payer Identifier: NA Member Number: [id number] Group Number: [id number] Subscriber Identifier: NA Relationship to Subscriber: self Coverage Type: NA Coverage Verification Date: Telecom: Address:
[2025-03-29 13:16] VITALS: BP 110/72; PULSE 57; O2SAT 93; BMI 33.8
--- NOTE | 2025-03-29 13:16 | A.OFFVIS_ITS ---
Vital Signs 03/29/25 13:16 Height 5 ft 2 in Weight 185 lb BMI 33.8 BP 110/72 Blood Pressure Location Lt brachial Position Sitting Pulse 57 Pulse Source Pulse Oximeter Pulse Oximetry (%) 93 Oxygen Delivery Method Room Air Intake Visit Reasons: Shortness of breath Intake Note: pt is here for follow up and states she is feeling well,she does have thick phlegm with her cough that is the usual. Matchbook Assembler Required: No Turkish Line Attendant: Turkish Line Attendant offered & declined Allergies Iodinated Contrast Media (IV DYE, IODINE CONTAINING CONTRAST ) Allergy (Severe, Verified 03/29/25 13:47) HIVE Penicillins (PENICILLINS) Allergy (Severe, Verified 03/29/25 13:47) HIVES Medication List - Last Reconciled 03/29/25 by Schuyler Cardona MD albuterol sulfate 90 mcg/actuation (Ventolin HFA) 2 puffs inhalation Q4-6H PRN allopurinol 100 mg PO DAILY 90 days atorvastatin (Lipitor) 80 mg PO DAILY cholecalciferol (vitamin D3) 50 mcg PO DAILY 90 days citalopram 20 mg PO clotrimazole-betamethasone 1-0.05 % 1 appl topical BID 2 weeks dapagliflozin propanediol (Farxiga) 5 mg PO QAM diltiazem HCl ER 240 mg PO DAILY diphenoxylate-atropine 2.5-0.025 mg tabs PO PRN ferrous sulfate (Feosol) 325 mg PO BID fluticasone furoate-vilanterol 200-25 mcg/dose 1 ea inhalation DAILY Incruse Ellipta 62.5 mcg/actuation (umeclidinium) 1 inh inhalation DAILY 30 days NS Januvia (sitagliptin phosphate) 100 mg PO DAILY 30 days NS lansoprazole (Prevacid) 30 mg PO DAILY@0630 mecobalamin (vitamin B12) 5,000 mcg PO DAILY melatonin 10 mg PO BEDTIME PRN metoprolol succinate ER 100 mg PO DAILY mirtazapine 15 mg PO BEDTIME montelukast 10 mg PO DAILY nystatin 1 appl topical TID 10 days potassium chloride ER 50 mEq PO DAILY prothrombin time/INR test metr (Coaguchek XS Pro) As directed prothrombin time/INR test metr (Coaguchek XS Pro) As directed spironolactone 25 mg PO DAILY torsemide 20 mg PO .QOD trazodone 50 mg PO BEDTIME warfarin Take 1 tablet daily or as instructed orally; Do you need a note to return to daycare/school/sports/work: No HPI HPI Shortness of breath: Details: . Alice is here for 6 months follow-up . Breathing has been. Good and stable Her main complaint is postnasal discharge and she coughs up moderate amount of whitish mucus mostly in the morning hours. She walks around without much shortness of breath Denies any attacks of cough or wheezing. She feels stronger as her hemoglobin is up to normal. [facility] Medical History Pneumonia Chronic diastolic heart failure CHF (congestive heart failure) Thrush, oral GI bleed Occult blood positive stool Microcytic anemia Valvular heart disease Exertional dyspnea Hemorrhagic cystitis Osteopenia Toxic multinodular goiter Obesity (BMI 30-39.9) Hearing impairment Peripheral vascular disease Obesity (BMI 30-39.9) Depression Anxiety Osteoarthritis of ankle and foot Vitamin D deficiency Allergic rhinitis Anemia GERD without esophagitis Gout Hypomagnesemia Multiple thyroid nodules Pure hypercholesterolemia Benign essential hypertension PSVT (paroxysmal supraventricular tachycardia) PAC (premature atrial contraction) COPD (chronic obstructive pulmonary disease) Chronic kidney disease (CKD), stage III (moderate) Type 2 diabetes mellitus with diabetic chronic kidney disease Sciatica of right side Surgical History History of colonoscopy History of angioplasty of peripheral vessel (~08/13/20) History of biopsy History of neck surgery History of cataract surgery History of bladder surgery History of tonsillectomy and adenoidectomy History of appendectomy History of hysterectomy Family History Father Stroke CVD (cardiovascular disease) Mother CVD (cardiovascular disease) Hypertension CAD (coronary artery disease) Other Mental health disorder Social History Household Members: None Housing: Condominium Do you presently have visiting nurse or other home services: Yes (food and beverage controller once per week- [facility]) Alcohol intake: current Alcohol intake frequency: holidays/special occasions only Alcohol type: beer and hard liquor Patient Tobacco Use Status: Former Tobacco user Tobacco use type: Cigarette Cigarette Packs Per Day: 2 Cigarettes Per Day: 40.0 Years Smoked: 40 e-Cigarette/Vaping Use: Never Used Second Hand Smoke Exposure: Yes service: No Current occupational status: retired Cognitive needs: Yes (cane) Hearing needs: Yes Vision needs: Yes Review of Systems Const All systems reviewed & are unremarkable except as noted in HPI and below Eyes Reports no additional complaints ENT Reports nasal congestion (Mostly controlled with use of med) Card Denies chest pain, Denies leg edema and Reports dyspnea on exertion (Her shortness of breath on activity is much increase than before) Resp Denies cough, Reports dyspnea on exertion (Her shortness of breath on activity is much increase than before) and Denies wheezing Reports no additional complaints Musc Reports back pain (Mild) and Reports arthralgias (Mild in multiple joints) Skin/Breast Reports system reviewed and no additional complaints, except as documented Neuro Reports no additional complaints Psych Reports anxiety Aller/Immun Denies wheezing Physical Exam Vital Signs: Last Vital Signs Pulse 57 03/29/25 13:16 BP 110/72 03/29/25 13:16 Pulse Ox 93 03/29/25 13:16 Oxygen Delivery Method Room Air 03/29/25 13:16 BMI result Body Mass Index 33.8 Const General: comfortable, no acute distress, alert and awake Orientation/consciousness: patient oriented x3 HEENT Head: Yes normal to inspection General nose exam: No nasal polyps present and No nasal discharge present Face and sinus: Yes sinuses nontender Mouth: oropharynx abnormals (She has erythema of the oral mucosa and white spots over the soft palate ) Throat: Yes posterior oropharynx normal Eyes General: appearance normal, both eyes and all related structures Neck Neck: Yes normal visual inspection, Yes no lymphadenopathy, Yes trachea midline and Yes no JVD Thyroid: Thyroid normal Chest Chest palpation & inspection: normal inspection of the chest, normal palpation of entire chest wall and no tenderness Resp Other: Percussion note is resonant. Breath sounds are equal on both sides, slightly distant. No wheezes rhonchi or crepitations are heard. Cardio Palpation: normal PMI Rate: regular rate Rhythm: regular rhythm Heart sounds: no gallops and Murmur heart sound present (Loud systolic murmur at the aortic area as well as over left sternal border) GI Palpation (GI): Soft to palpation, nontender, No hepatosplenomegaly present and no masses Auscultation: normal bowel sounds Back/Spine/Pelvis Thoracic/Lumbar Spine: thoracic and lumbar spine normal to inspection and thoraco-lumbar ROM limited Skin General skin exam: no rashes or lesions noted Neuro General: patient oriented x3 and no focal motor deficits Cranial nerves: Yes CN's II-XII intact bilaterally Extrem General: Yes normal to inspection, Yes no clubbing, cyanosis or edema and Yes no calf tenderness Psych Appearance: grossly normal and well kempt Speech and movement: Normal speech and movement present Assessment & Plan Assessment & Plan (1) COPD (chronic obstructive pulmonary disease): Comment: SHE HAS MODERATELY SEVERE ASTHMA/COPD. WITH THE CURRENT COMBINATION SHE IS FEELING BETTER. SHE HAS NOT REQUIRED TO USE RESCUE INHALER. Code(s): J44.9 - Chronic obstructive pulmonary disease, unspecified Category: Medical Qualifiers: COPD type: unspecified COPD Qualified Code(s): J44.9 - Chronic obstructive pulmonary disease, unspecified Plan: Continue Breo 200-251 inhalation daily Incruse Ellipta 1 inhalation daily Albuterol HFA 2 puffs Q 6 hours p.r.n. (2) Chronic diastolic heart failure: Comment: SHE IS BEING FOLLOWED BY CARDIOLOGY REGULARLY, AND BEING TREATED FOR CHRONIC DIASTOLIC CONGESTIVE HEART FAILURE. HER CARDIAC STATUS IS ALSO REMAINING STABLE IN THE LAST 6 MONTHS. Code(s): I50.32 - Chronic diastolic (congestive) heart failure Category: Medical Plan: Continue follow-up with cardiology (3) Allergic rhinitis: Comment: CHRONIC , GETS WORSE OFF AND ON , SHE IS BOTHERED BY POSTNASAL DISCHARGE AND COUGH, OFF AND ON, Code(s): J30.9 - Allergic rhinitis, unspecified Category: Medical Qualifiers: Allergic rhinitis trigger: unspecified Allergic rhinitis seasonality: unspecified Qualified Code(s): J30.9 - Allergic rhinitis, unspecified Plan: USE MONTELUKAST 10 MG DAILY STEAM INHALATIONS. 2 TO 3 TIMES A DAY MAY RINSE NOSE WITH SALINE SPRAY ONCE OR TWICE A DAY ESPECIALLY IN THE MORNING.. Coding Level of Care Code Est Pt Level 3 (00850) Diagnoses Chronic obstructive pulmonary disease, unspecified COPD type J44.9 COPD type: unspecified COPD Chronic diastolic heart failure I50.32 Allergic rhinitis, unspecified seasonality, unspecified trigger J30.9 Allergic rhinitis trigger: unspecified Allergic rhinitis seasonality: unspecified
--- OUTSIDE RECORDS SUMMARY | 2025-03-29 16:27 | XMS_ITS | Clinical Summary ---
Author Organization [facility] Facility Address [address] [place] [address] Care Team Providers Care Fire Claims Adjuster Name Role Phone Jamel Mansfield MD Primary Care Provider [phone] Social History Tobacco Use Types Packs/Day Years [...] age to complete this topic Insurance Medicare [facility] Care Teams Fire Claims Adjuster Relationship Specialty Start Date End Date Jamel Mansfield MD [address] [place] [address] [address] [place] [address] PCP - General Internal Medicine 10/08/22
--- OUTSIDE RECORDS SUMMARY | 2025-03-29 16:27 | XMS_ITS | Encounter Summary ---
Author Organization [facility] Address [facility] [address] [place] [phone] Phone Care Team Providers Care Concrete Floor Installer Name Role Phone Jamel Mansfield MD Primary Care Provider [phone] Encounter Details Date Type Department Care Team (Late st Contact Info) Description 04/24/2020 Procedure Pass Echo [facility] [place] [address] [place] [address] Social History Tobacco Use Types Packs/Day Years [...] as of this encounter Plan of Treatment Not on file documented as of this encounter Visit Diagnoses Not on filedocumented in this encounter Additional Health Concerns Infection Onset Date Last Indicated Resolved Time CoV-Exposed Comment:Close contact 04/30/2020 05/05/2020 05/14/2020 1:25 AM EST CoV-Risk Comment:Per note documentation 09/14/2022 09/14/2022 3 1:18 PM EDT documented as of this encounter Care Teams Concrete Floor Installer Relationship Specialty Start Date End Date Jamel Mansfield MD PCP - General 03/04/17 documented as of this encounter Additional Source Comments The information contained in this document represents components of the legal health record. It is not the complete legal health record.[facility]
--- OUTSIDE RECORDS SUMMARY | 2025-03-29 16:27 | XMS_ITS | Patient Health Record ---
Author Organization [facility] Address [address] [place] [address] Care Team Providers Care Law Writer Name Role Phone Donal BELTRÁN, Seguin Primary Care Provider Carolyn Pineda Unavailable [phone] Allergies Allergen (clinical drug ingredient) Drug/Non Drug Allergy documented on EMR Reaction Allergy Type Onset Date Status Penicillin hives Drug Allergy Active Iodine hives Drug Allergy Active Results Component Value Reference Range Notes HEMOGLOBIN A1C (GLYCOHEMOGLO BIN) Reviewed date:02/07/2025 02:05:16 PM Interpretation: Performing Lab: Notes/Report: HEMOGLOBIN A1C % (HH) 6.7 Reason For Referral No Information Medications Medication SIG (Take, Route, Frequency, Duration) Notes Start Date End Date Status Allopurinol 100 MG 1 tablet Orally Once a day; Duration: 30 day(s) Active Warfarin Sodium 5 MG 1 tablet Orally Onc e a day Active Metoprolol Tartrate 75 MG 1 tablet with food Orally daily Active Colcrys 0.6 MG 1 tablet Orally Once a day; Duration: 30 days 10/10/2014 Not-Takin g Torsemide 20 MG 1 tablet Orally Once a day Active Colcrys 0.6 MG 1 tablet Orally Up t o Four times a day; Duration: 5 days 10/10/2014 Not-Taking Farxiga Active Nabumetone 500 MG 1 tablet Orally Twic e a day; Duration: 30 day(s) 08/02/2014 Not-Taking Spironolactone Activ e Singulair 10 MG 1 tablet in the evening Orally Once a day Not-Taking Diphenoxylate-Atropine 2.5-0.025 MG/5ML 5 mL as needed Orally Four times a day Active Symbicort 160-4.5 MCG/ACT 2 puffs Inhala tion Twice a day Not-Taking Diovan HCT 160-12.5 MG 1 tablet Orally O nce a day Not-Taking Paxil 30 MG 1 tablet in the morning Orally Once a day Not-Taking metFORMIN HCl 500 MG 1 tablet with meals Orally Twice a day Not-Taking Losartan Potassium 100 MG 1 tablet Orall y Once a day; Duration: 30 day(s) Not-Taking Advair Diskus Not-Ta tila Breo Ellipta 200-25 MCG/ACT Inhalation; Duration: 90 Days Active Januvia 100 MG 1 tablet Orally Once a day; Duration: 30 day(s) Active traZODone HCl 50 MG Orally Active Mirtazapine 15 MG 1 tablet at bedtime Orally Once a day; Duration: 30 day(s) Active Montelukast Sodium 10 MG 1 tablet Orally Once a day; Duration: 30 day(s) Active Lansoprazole 30 MG 1 capsule before a meal Orally Once a day Active dilTIAZem HCl ER Beads 240 MG 1 capsule Orally Once a day; Duration: 30 day(s) Active Cilostazol 50 MG 1 tablet 30 minutes before or 2 hours after breakfast and dinner Orally Twice a day; Duration: 30 day(s) Active Citalopram Hydrobromide 40 MG 0.5 tablet Orally Once a day; Duration: 30 day(s) Active Atorvastatin Calcium 40 MG 1 tablet Oral ly Once a day Active Immunizations Vaccine Route Administration Date Status Comme nts COVID-19 Pfizer BioNTech Vaccine Unknown 02/14/2022 Administered 1st 06/21/20,07/12/20 03/14/21 Influenza Unknown 02/14/2022 Administered Influenza Unknown 02/15/2024 Administered Social History Tobacco Use: Social History Observation Description Date Details (start date - stop date) Never Smoker NA - NA Alcohol Screen Question Answer Notes Did you have a drink containing alcohol in the p ast year? Yes Points 0 Interpretation Negative Tobacco use other than smoking: Question Answer Notes Are you an other tobacco user? No Tobacco Control (Standard) Question Answer Notes Tobacco use: Nonsmoker AUDIT-C (Standard) Question Answer Notes Did you have a drink containing alcohol in the p ast year? 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, bilateral legs (I70.203) Active confirmed Problem Information temporarily unavailable Other hammer toe(s) (acquired), left foot (M20.42) Active confirmed Problem Information temporarily unavailable Type 2 diabetes mellitus with diabetic polyneuropathy (E11.42) Active confirmed Problem Information temporarily unavailable Type 1 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) Active confirmed Vital Signs Blood pressure diastolic 80 mm Hg 02/07/2025 Height 5 ft 2.5 in in 02/07/2025 Blood pressure systolic 122 mm Hg 02/07/2025 Weight 182 lbs 02/07/2025 BMI 32.75 kg/m2 02/07/2025 Procedures Procedure Date Ordered Date Performed Result Body Sit e 42269-REZJBUN NAIL, 6 OR MORE 02/07/2025 N/A 36362-JJIK SKIN LESIONS, 2 TO 4 02/07/2025 N/A Encounters Encounter Location Date Provider Diagnosis [facility] [place] [address] 02/07/2025 Carolyn Raymundo Type 2 diabetes mellitus with diabetic polyneuropathy E11.42 ; Tinea unguium B35.1 ; Other hammer toe(s) (acquired), right foot M20.41 and Other hammer toe(s) (acquired), left foot M20.42 Assessments Encounter Date Diagnosis (ICD Code) Assessment Notes Treatment Notes Treatment Clinical Notes Section Notes 02/07/2025 Type 2 diabetes mellitus with diabetic polyneuropathy (ICD-10 - E11.42) 02/07/2025 Tinea unguium (ICD-10 - B35.1) 02/07/2025 Other hammer toe(s) (acquired), right foot (ICD-10 - M20.41) Patient Educated with: DIABETIC FOOT CARE INSTRUCTIONS. pdf (DIABETIC FOOT CARE INSTRUCTIONS. pdf) 02/07/2025 Other hammer toe(s) (acquired), left foot (ICD-10 - M20.42) Plan Of Treatment Pending Test Test Name Order Date X ray : Foot, left 2V 08/02/2014 X ray : Foot, left 2V 08/22/2014 X ray : Foot, left 2V 08/30/2014 X ray : Foot, left 2V 09/13/2014 X ray : Foot, right 2V 10/10/2014 *Uric Acid, Serum 10/10/2014 *Sedimentation Rate-Westergren 5 27123-XEJMUWW NAIL, 6 OR MORE 02/07/2025 87798-LCBPGPM NAIL, 1-5 09/13/2014 41005-RWAV SKIN LESIONS, 2 TO 4 02/08/20 25 52844-BCIM SKIN LESIONS, 2 TO 4 07/23/19 21 32230-GTYK SKIN LESIONS, 2 TO 4 10/22/19 21 51328-BMNG SKIN LESIONS, 2 TO 4 01/14/20 21 34489-XQLS SKIN LESIONS, 2 TO 4 04/23/20 21 64282-IBKP SKIN LESIONS, 2 TO 4 08/07/19 22 70675, O0045-PVXFG/INJECT, JOINT/BURSA 0 10/24/2015 41632, J0702- Neuroma/Injection 05/31/19 15 11649, J0702- Neuroma/Injection 10/26/19 15 Next Appt Details Provider Name:Carolyn Regalado ángela, 04/19/2025 03:15:00 PM, [address] [facility], [place], [address], Insurance Providers Payer Name Payer Address Payer Phone Subscriber Number Group Number Insured Name Patient Relationship to Insured Coverage Start Date Coverage End Date Medicare National Govt Sv[employer] [address] [place] [address] [id number] Alice Martinez Self - patient is the insured [facility] [address] [place] [address] [phone] [id number] Alice Martinez Self - patient is [...] legs Guille 12/10/2020 Hospitalization History Reason Date(Month/Year) [facility] vascular sx 08/14/20-08/21/20 [facility]- Bunion surgery left foot 08/16/14
--- OUTSIDE RECORDS SUMMARY | 2025-03-29 16:27 | XMS_ITS | Encounter Summary ---
Author Organization [facility] Address [address] [place] [address] Phone Care Team Providers Care Order Analyst Name Role Phone Jamel Mansfield MD Primary Care Provider +1 [phone] Encounter Details Date Type Department Care Team (Late st Contact Info) Description 08/13/2022 Procedure Pass [facility] [address] [place] [address] Social History Tobacco Use Types Packs/Day Years [...] documented as of this encounter Care Teams Order Analyst Relationship Specialty Start Date End Date Jamel Mansfield MD PCP - General 03/04/17 documented as of this encounter Additional Source Comments The information contained in this document represents components of the legal health record. It is not the complete legal health record.[facility]
--- OUTSIDE RECORDS SUMMARY | 2025-03-29 16:27 | XMS_ITS | Encounter Summary ---
Author Organization [facility] Address [facility] [address] [place] [address] Phone Care Team Providers Care Brew House Supervisor Name Role Phone Jamel Mansfield MD Primary Care Provider +1 -[phone] Encounter Details Date Type Department Care Team (Late st Contact Info) Description 02/16/2024 Procedure Pass Echo Lab [place] [place], [place] [id number] Social History Tobacco Use Types Packs/Day Years [...] on filedocumented in this encounter Care Teams Brew House Supervisor Relationship Specialty Start Date End Date Jamel Mansfield MD PCP - General 03/04/17 documented as of this encounter Additional Source Comments The information contained in this document represents components of the legal health record. It is not the complete legal health record.[facility]
--- OUTSIDE RECORDS SUMMARY | 2025-03-29 16:27 | XMS_ITS | Encounter Summary ---
Author Organization [facility] Address [facility] [address] [place] [address] Phone Care Team Providers Care Behavioral Consultant Name Role Phone Jamel Mansfeild MD Primary Care Provider +1 [phone] Encounter Details Date Type Department Care Team (Late st Contact Info) Description 09/25/2022 Procedure Pass [facility], Ct Scan - [address] [address] Social History Tobacco Use Types Packs/Day Years [...] on filedocumented in this encounter Care Teams Behavioral Consultant Relationship Specialty Start Date End Date Jamel Mansfield MD PCP - General 03/04/17 documented as of this encounter Additional Source Comments The information contained in this document represents components of the legal health record. It is not the complete legal health record.[facility]
--- OUTSIDE RECORDS SUMMARY | 2025-03-29 16:28 | XMS_ITS | Encounter Summary ---
Author Organization [facility] Address [address] [place] [address] Phone Care Team Providers Care Traveling Crane Operator Name Role Phone Jamel Mansfield MD Primary Care Provider +1 [phone] Encounter Details Date Type Department Care Team (Late st Contact Info) Description 02/16/2022 Procedure Pass Echo Lab [place] [place] [address] Social History Tobacco Use Types Packs/Day Years [...] documented as of this encounter Care Teams Traveling Crane Operator Relationship Specialty Start Date End Date Jamel Mansfield MD PCP - General 03/04/17 documented as of this encounter Additional Source Comments The information contained in this document represents components of the legal health record. It is not the complete legal health record.[facility]
--- OUTSIDE RECORDS SUMMARY | 2025-03-29 16:28 | XMS_ITS | Encounter Summary ---
Author Organization [facility] Address [address] [place] [address] Phone Care Team Providers Care Director Drug Safety Name Role Phone Jamel Mansfield MD Primary Care Provider [phone] [phone] Reason for Referral * MRI/CAT Scan - Closed Specialty Diagnoses / Procedures Referred By Contac t Referred To Contact Radiology Diagnoses Peripheral vascular disease, unspecified Procedures CT Angio Abdominal Aorta and Bilateral Lower Extremity Runoff Ofelia Villasenor MD [address] [address] Phone: tel: fax: Referral ID Status Reason Start Date Expiration Date Visits Re quested Visits Authorized [id number] Closed 05/09/2019 05/08/2020 1 1 Encounter Details Date Type Department Care Team (Latest Contact Info) Description 05/09/2019 Transcribe Orders Virtual Department [address] [place] [address] Ofelia Villasenor MD [address] [address] Peripheral vascular disease, unspecified (Primary Dx) Social [...] on file documented as of this encounter Results * [...] identified. TOTAL CTDIvol: 22.00 mGy POS - [id number] Narrative 05/30/2019 7:22 PM EST COMPARISON: None [...] stenosisidentified. TOTAL CTDIvol: 22.00 mGy POS - [id number] Ofelia Villasenor MD IMG CT ABD/PELVIS Final [...] documented as of this encounter Care Teams Director Drug Safety Relationship Specialty Start Date End Date Jamel Mansfield MD PCP - General 03/04/17 documented as of this encounter Additional Source Comments The information contained in this document represents components of the legal health record. It is not the complete legal health record.[facility]
--- OUTSIDE RECORDS SUMMARY | 2025-03-29 16:28 | XMS_ITS | Clinical Summary ---
Author Organization [facility] Address [address] [place] [address] Drive [address] [place] [address] Phone Care Team Providers Care Manager Legal Name Role Phone Jamel Mansfield MD Primary Care Provider [phone] [phone] Allergies Active Allergy Reactions Criticality Noted Date Comments Iodinated Contrast Media Hives 09/04/2017 Penicillins Hives 09/04/2017 Medications lansoprazole (PREVACID) 30 MG capsule Take 1 capsule by mouth daily. Active traZODone (DESYREL) 50 MG tablet Orally Once a day Active montelukast (SINGULAIR) 10 mg tablet Take 1 tablet by mouth every evening. Active ferrous sulfate 325 mg (65 mg newtok iron) tablet Take 325 mg by mouth [...] diphenoxylate-at ropine (LOMOTIL) 2.5-0.025 mg per tablet daily as needed. 4 Active DILT-XR 240 mg 24 hr capsuleIndicatio ns:Medicine refill TAKE 1 CAPSULE BY MOUTH EVERY DAY 90 capsule 4 5 Active dapagliflozin propanediol (FARXIGA) 5 mg tablet Take by mouth daily. Active cyanocobalamin (VITAMIN B-12) 500 mcg/spray Crozet 500 mcg by Right Nare route. Active [...] Information Patient taking differently: Every other day, TAKE 1 TABLET BY MOUTH 2 (TWO) TIMES A DAY (ONCE IN THE MORNING AND ONCE IN THE AFTERNOON)., Reported on 02/16/2025 warfarin (COUMADIN) 5 MG tabletIndication s:Persistent atrial fibrillation TAKE 1 TABLET (5 MG TOTAL) BY MOUTH DAILY. 90 tablet 3 5 Active metoprolol succinate (TOPROL-XL) 25 MG 24 hr tablet TAKE 3 TABLETS BY MOUTH DAILY 270 tablet 1 5 Active spironolactone (ALDACTONE) 25 MG tablet TAKE 1 TABLET (25 MG TOTAL) BY MOUTH DAILY. 90 tablet 1 5 Active Active Problems Problem Noted Date Diagnosed Date Valvular heart disease 11/27/2024 Assessment & Plan (11/27/2024 3:09 PM EDT): She has moderate aortic stenosis/moderate AI, severe mitral stenosis/moderate mitral regurgitation. Ongoing symptoms of exertional dyspnea which really limit her daily activity. Currently euvolemic on exam. Previously was deemed not to be a surgical candidate for valve repair through [facility]. She declined obtaining a second opinion, she is not interested in undergoing open heart surgery at her age. We did discuss potential for TAVR versus enrollment in [facility] trial with possible TMVR. The exact inclusion [...] torsemide 10 mg fdaily -Patient was at [facility] at the end of July with [...] to obtain a lipid panel from the [facility] system. Goal LDL is less than [...] of claudication. I recommended she follow-up with [facility] vascular who has been managing this [...] frequently at her PCP office in the [facility] system. I have discussed with her that given her extensive peripheral arterial disease, she should have an LDL of less than 70. We will try to obtain a lipid panel from [facility]. She is on 40 mg of [...] Encounters Date Type Department Care Team Description 02/22/2025 Refill [facility] [address], [address] [place] [address] Vanesa García PA-C Medication Refill 02/16/2025 3:20 PM EDT Office Visit [facility] [address], [address] [place] [address] Darryl Khan MD Nonrheumatic mitral valve stenosis (Primary Dx); Nonrheumatic aortic valve stenosis 01/09/2025 Orders Only [facility] [address], [address] [place] [address] Ashley Hernandez CNP 01/02/2025 Orders Only [facility] [address], [address] [place] [address] Ashley Hernandez CNP from Last 3 Months Immunizations Immunization Administration [...] Sign Reading Time Taken Comments Blood Pressure 150/78 02/16/2025 3:19 PM EDT Pulse 47 02/16/2025 3:19 PM EDT Temperature 36.3 C (97.3 F) 06/21/2024 3:27 PM EST Respiratory Rate 18 06/21/2024 3:27 PM EST Oxygen Saturation 95% 02/16/2025 3:19 PM EDT Inhaled Oxygen Concentration - - Weight 82.6 kg (182 lb) 02/16/2025 3:19 PM EDT Height 157.5 cm (5' 2.01 ) 02/16/2025 3:19 PM ED T Body Mass Index 33.28 02/16/2025 3:19 PM EDT Plan of Treatment Health Maintenance Due Date Last Done Comments Adult Td,Tdap Booster 1940 DEPRESSION SCREENING 1951 ZOSTER VACCINES (1 of 2) 12/06/1989 OSTEOPOROSIS SCREENING INITIAL (ONE-TIME) 12/06/2004 RSV VACCINE (1 - 1-dose 75+ series) 12/06/2014 PNEUMOCOCCAL VACCINES (50+ years) (2 of 2 - PPSV23, PCV20, or PCV21) 04/25/2018 02/28/2018, 02/09/2018 DIABETIC EYE EXAM 09/14/2022 HEMOGLOBIN A1C 03/18/2023 09/15/2022 INFLUENZA VACCINE (#1) 2024 , 01/30/2019, 02/09/2018, Additional history exists COVID-19 VACCINE ( season) 2025 10/06/2021, 03/14/2021, 07/12/2020, Additional history exists CREATININE LEVEL 06/21/2025 06/21/2024, , 09/29/2022, Additional history exists POTASSIUM LEVEL 06/21/2025 06/21/2024, 09/14, 09/29/2022, Additional history exists BLOOD PRESSURE 08/17/2025 02/16/2025 HEPATITIS A VACCINES Aged Out No long er eligible based on patient's age to complete this topic HIB VACCINES Aged Out No longer eligi ble based on patient's age to complete this topic IPV VACCINES Aged Out No longer eligi ble [...] Date/Time Associated Diagnosis Comments BASIC METABOLIC PANEL (BMP) STAT 06/21/2024 1:18 PM EST HEMOGLOBIN A1C Routine 09/15/2022 5:46 AM EDT from Last 3 Months or Most Recently Relevant to Health Maintenance Results * (ABNORMAL) Basic metabolic panel (06/21/2024 1:18 PM EST) SODIUM 139 133 - 146 mmol/L [facility] CHLORIDE 105 96 - 108 mmol/L [facility] POTASSIUM 4.0 3.3 - 5.1 mmol/L [facility] CO2 22 21 - 35 mmol/L [facility] BUN 33(H) 6 - 19 mg/dL [facility] CREATININE 1.60(H) 0.5 - 1.5 mg/dL [facility] GLUCOSE 189(H) 70 - 99 mg/dL [facility] CALCIUM 9.6 8.4 - 10.3 mg/dL [facility] EGFR 32(L) >59 mL/min/1.7 3m2 [facility] Comment:Estimated glomerular filtration rate calculated using the CKD-EPI refit equation. ANION GAP 16 10 - 20 mmol/L [facility] Blood 06/21/2024 1:18 PM EST 06/21/2024 1:20 PM EST us Gaudencio Whitfield MD LAB BLOOD BKR ORDERABLES Final R esult Performing Organization Address City/[facility]/ZIP Co de Phone Number [address] [address] * (ABNORMAL) Hemoglobin A1c (09/15/2022 5:46 AM EDT) HEMOGLOBIN A1C 6.1(H) 4.3 - 5.8 % [facility] Blood 09/15/2022 5:46 AM EDT 09/15/2022 6:11 AM EDT us Kayla Alfred DO LAB BLOOD BKR ORDERABLES Ofelia l Result Performing Organization Address [facility] Co de Phone Number [address] [address] from Last 3 Months or Most Recently Relevant to Health Maintenance Insurance [place] [id number] [place] [address] MEDICARE SUPPLEMENT [address] [place] [address] MEDICARE PART A & B Member Subscriber Plan / Payer (Ef fective 2004-Present) Name:Alice Martinez Member ID:[id number] Relation to Subscriber:Self Name:Alice Martinez Subscriber ID:[id number] Payer ID:[id number] Group ID:Not on file Type:Medicare Address: [facility] [employer] [place] [phone] [facility] MEDICARE SUPPLEMENT MEDICARE PART A & B MEDICARE SUPPLEMENT [address] [place] [address] MEDICARE PART A & B MEDICARE SUPPLEMENT [address] [place] [phone] MEDICARE PART A & B MEDICARE SUPPLEMENT MEDICARE PART A & B MEDICARE SUPPLEMENT [address] [place] [address] MEDICARE PART A & B MEDICARE SUPPLEMENT [address] [place] [address] MEDICARE PART A & B MEDICARE SUPPLEMENT MEDICARE PART A & B [facility] MEDICARE SUPPLEMENT Advance Directives For more information, please contact: [phone] (9AM - 5PM [facility], Wednesday-Wednesday) Documents on File Type Date Recorded Patient Cemetery Manager Expl anation Power of Foam Rubber Curer Healthcare Proxy 08/20/2020 Healthcare Proxy * Full Code (Latest Code Status on File) Date Activated Date Inactivated Comments 09/14/2022 3:33 PM Question Answer Comments Code Status Confirmed With: Patient Care Teams Manager Legal Relationship Specialty Start Date End Date Jamel Mansfield MD PCP - General 03/04/17 Additional Source Comments The information contained in this document represents components of the legal health record. It is not the complete legal health record.[facility]
--- OUTSIDE RECORDS SUMMARY | 2025-03-29 16:28 | XMS_ITS | Encounter Summary ---
Author Organization [facility] Address [address] [place] [address] Phone Care Team Providers Care Lining Maker Name Role Phone Jamel Mansfield MD Primary Care Provider +1 -[phone] Encounter Details Date Type Department Care Team (Late st Contact Info) Description 07/23/2020 Procedure Pass [facility] Lab [place] [place] [address] Social History Tobacco Use Types Packs/Day Years [...] documented as of this encounter Care Teams Lining Maker Relationship Specialty Start Date End Date Jamel Mansfield MD PCP - General 03/04/17 documented as of this encounter Additional Source Comments The information contained in this document represents components of the legal health record. It is not the complete legal health record.[facility]
--- OUTSIDE RECORDS SUMMARY | 2025-03-29 16:28 | XMS_ITS | Encounter Summary ---
Author Organization [facility] Address [address] [place] [address] Phone Care Team Providers Care Labeler Name Role Phone Jamel Mansfield MD Primary Care Provider +1 -[phone] Encounter Details Date Type Department Care Team (Late st Contact Info) Description 07/16/2021 Procedure Pass [facility] [place] [place] [address] Social History Tobacco Use Types Packs/Day Years [...] documented as of this encounter Care Teams Labeler Relationship Specialty Start Date End Date Jamel Mansfield MD PCP - General 03/04/17 documented as of this encounter Additional Source Comments The information contained in this document represents components of the legal health record. It is not the complete legal health record.[facility]
--- OUTSIDE RECORDS SUMMARY | 2025-03-29 16:28 | XMS_ITS | Encounter Summary ---
Author Organization [facility] Address [facility] [address] [place] [address] Phone Care Team Providers Care Station Mechanic Apprentice Name Role Phone Jamel Mansfield MD Primary Care Provider +1 -[phone] Encounter Details Date Type Department Care Team (Late st Contact Info) Description 09/28/2022 Procedure Pass [facility] [address] [place] [address] Social History Tobacco Use Types Packs/Day Years [...] on filedocumented in this encounter Care Teams Station Mechanic Apprentice Relationship Specialty Start Date End Date Jamel Mansfield MD PCP - General 03/04/17 documented as of this encounter Additional Source Comments The information contained in this document represents components of the legal health record. It is not the complete legal health record.[facility]
--- OUTSIDE RECORDS SUMMARY | 2025-03-29 16:28 | XMS_ITS | Patient Health Record ---
Author Organization [facility] Address [address] [place] [address] Care Team Providers Care Career Agent Name Role Phone Jamel Mansfield MD Primary Care Provider Steven Irving [phone] Allergies Allergen (clinical drug ingredient) Drug/Non Drug Allergy documented on EMR Reaction Allergy Type Onset Date Status Penicillin Unknown Drug Allergy Active contrast dye (uncoded) Unknown Allergy Active Results Component Value Reference Range Notes CT abdomen pelvis wo con Reviewed date:03/20/2025 01:41:13 PM Interpretation: Performing Lab: Notes/Report: [address] [address] [address] Scan Report Signed Patient: Alice Carter MR#: [id number] [birth year] : 1940 Acct:[id number] Age/Sex: 83 / F ADM Date: 06/02/24 Loc: HO.CT Attending Dr: Steven Haji MD Ordering Physician: Steven Haji MD Date of Service: 06/02/24 Procedure(s): CT abdomen pelvis wo IV con Accession Number(s): [id number] cc: Jamel Mansfield MD; Steven Haji MD Report Number: [id number]: Total DLP = 756.00 mGy-cm EXAMINATION: CT [...] 06/05/24 0842 DD/ 1530 TD/TT: 06/02/24 1738 Legislative Correspondent: Reason For Referral No Information Medications Medication SIG (Take, Route, Frequency, Duration) Notes Start Date End Date Status traZODone HCl 50 MG 1 tablet at bedtime Orally Once a day Active Breo Ellipta 200-25 MCG/ACT Inhalation; Duration: 30 Active Atorvastatin Calcium 40 MG 1 tablet Oral ly Once a day Active Lomotil 2.5-0.025 MG Take 1 or 2 Orally Every morning on a daily and regular basis to try to prevent diarrhea, and then take 1 or 2 every 4 to 6 hours as needed for diarrhea later in the day; Duration: 30 days 2023 Active Vitamin B 12 5000 mg tablet Orally once a day Active Allopurinol 100 MG Oral; Duration: 90 Active Farxiga 5 MG 1 tablet Orally Once a day Active Lansoprazole 30 MG 1 capsule before a meal Orally twice a day /prn Active Clopidogrel Bisulfate 75 MG Oral; Duration: 90 Not-Takin g dilTIAZem HCl ER 240 MG 1 tablet Orally Once a day; Duration: 30 day(s) Active Januvia Active Warfarin Sodium 2 MG 1 tablet Orally Onc e a day; Duration: 30 day(s) Active Citalopram Hydrobromide Active Metoprolol Succinate 100 MG 1 capsule Orally Once a day; Duration: 30 day(s) Active Mirtazapine Active Torsemide 20 MG 1 tablet Orally Ever y other day Active iron 65 mg 1 tablet Oral bid A ctive Spironolactone 25 MG 1 tablet Orally Melissa ly; Duration: 30 days Active Vitamin D-3 Active Cilostazol Not-Takin g Potassium 1 tab Oral; Duration : 14 days Active Dilt-XR Active Incruse Ellipta 62.5 MCG/ACT 1 puff Inhalation Once a day Active Montelukast Sodium A ctive Immunizations Vaccine Route Administration Date Status Comme nts Flu vaccine no Preserv 3 and > Unknown 03/30/2016 Admin istered Influenza Unknown 01/24/2020 Administered Influenza Unknown 02/14/2021 Administered Influenza Unknown 02/17/2023 Administered Influenza Unknown 03/02/2023 Administered Pneumococcal Unknown 03/02/2023 Administered Influenza Unknown 03/20/2024 Administered Social History Tobacco Use: Social History [...] Status W/U Status Risk Notes Problem Constipation (14180940) Constipation (K59.00) Active confirmed Problem Diarrhea (29572340) Diarrhea, unspecified (R19.7) Active confirmed Problem Gastroesophageal reflux disease (701274816) Gastroesophageal reflux disease, esophagitis presence not specified (K21.9) Active confirmed Problem Abnormal feces (197059454) Heme + stool (R19.5) Active confirmed Problem Anemia (408652834) Anemia (D64.9) Active confir med Problem Iron deficiency anemia due to chronic blood loss (591339892) Iron deficiency anemia due to chronic blood loss (D50.0) Active confirmed Problem Microcytic anemia (447295069) Microcytic anemia (D50.9) Active confirmed Problem Angiodysplasia of colon (72577186) Angiodysplasia of colon (K55.20) Active confirmed Problem Iron deficiency anemia (68978325) Iron deficiency anemia, unspecified iron deficiency anemia type (D50.9) Active confirmed Problem Diarrhea (11252573) Diarrhea, unspecified type (R19.7) Active confirmed Problem Chronic diarrhea (555698641) Chronic diarrhea (K52.9) Active confirmed Problem Irritable bowel syndrome (11695123) 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) Active confirmed Problem Pancreatic insufficiency (17922822) Pancreatic insufficiency (K86.89) Active confirmed Problem Incontinence of feces (24861343) Fecal soiling due to fecal incontinence (R15.9) Active confirmed Vital Signs Temperature 96.7 degrees Fahrenheit 03/20/2025 Blood pressure diastolic 01 mm Hg 03/20/2025 Height 62.5 in 03/20/2025 Blood pressure systolic 001 mm Hg 03/20/2025 Weight 186.6 lbs 03/20/2025 BMI 33.58 kg/m2 03/20/2025 Encounters Encounter Location Date Provider Diagnosis [facility] [address] [place] [address] 03/20/2025 Steven Haji Constipation K59.00 ; Irritable [...] assistance in the future. Plan Of Treatment Pending Test Test Name [...] 12/06/2023 Calprotectin, Fecal 12/06/2023 Calprotectin, Fecal 11/30/2023 Ova and Parasite 12/06/2023 Ova and Parasite 11/30/2023 GI PANEL 03/08/2024 GI PANEL 11/30/2023 GI PANEL 12/06/2023 Future Test Test Name Order Date UPPER GI ENDOSCOPY 04/18/2014 UPPER GI ENDOSCOPY 05/02/2016 COLONOSCOPY 05/02/2016 UPPER GI ENDOSCOPY 01/27/2022 COLONOSCOPY 01/27/2022 Next Appt Details Provider Name:Steven Valdez Haji , 03/20/2026 01:00:00 PM, [address] [facility], [address], [place], [address], Insurance Providers Payer Name Payer Address Payer Phone Subscriber Number Group Number Insured Name Patient Relationship to Insured Coverage Start Date Coverage End Date MEDICARE OF [place] [address] [facility] [place] [phone] [id number] ALICE CARTER Self - patient is the insured [facility] [address] [place] [phone] [id number] ALICE CARTER Self - patient is the insured Medical (General) History Medical History History ICD Code 10/25/2009 Colonoscopy- neg except for h yperplastic polyps- no IBD Tubular adenomas removed in 2002 GERD-EGD in 1997- HH, but ot herwise negative; EGD 05/2014 small HH, no esophagitis, small area of Aguilera's- no dysplasia Depression Hyperlipidemia NIDDM COPD Hypertension Denies DC or CVA Microcytic anemia in 2016- h emoglobin 10.8 with MCV 72 in April 2016- [...] stenosis. She is being followed by a broomcorn seeder Hospitalized 01/2022 for recu rrent anemia- Hgb 7.7 and needed 2 u PRBC- Hgb 8.9 on 01/22 Negative small bowel video [...] a secondary diarrhea or C. difficile infection Atrial fibrillation Chronic renal insufficiency- atrophic ri ght kidney Surgical History Surgery Date(Month/Year) Vascular stenting for LE's w ith an upside down Y from aorta into iliacs as described by the patient-Dr. Siddiqi at [facility] 08/14/2020 and 11/2020 Left toe surgery Right hip fracture with screws in 01/2014 after a fall Bladder suspension Back surgery Lumpectomy-benign Complete hysterectomy Appendectomy Hospitalization History Reason Date(Month/Year) Hospitalized for 2 weeks due to pneumonia, CHF, and Afib, and then rehab for 2 weeks. Spring 2022
== END 2025-03-29 13:49 | disposition home or self-care (01) ==
LOC: HO.HPS 13:10
PROVIDERS: PCP Internal Medicine; Visit Provider Internal Medicine
DX: J44.9 Chronic obstructive pulmonary disease, unspecified (principal); I50.32 Chronic diastolic (congestive) heart failure; J30.9 Allergic rhinitis, unspecified
CPT/HCPCS: 99213

== ENCOUNTER → 2025-03-29 13:09 | Outpatient (BNVA) | payer MEDICARE, OTHER, SELFPAY | PROVIDERS: PCP Internal Medicine; Visit Provider Internal Medicine | DX: J44.9 Chronic obstructive pulmonary disease, unspecified (principal); R06.02 Shortness of breath; Z87.891 Personal history of nicotine dependence; J45.991 Cough variant asthma; J30.2 Other seasonal allergic rhinitis | CPT/HCPCS: 99212 ==

== ENCOUNTER 2025-04-25 11:18 | Outpatient (REF) | payer MEDICARE, OTHER, SELFPAY ==
[2025-04-25 13:54] LABS: Appearance Urine Hazy; Glucose Urine UA 500 mg/dL (Negative); PH 6.0 (5.0-9.0); Specific Gravity - Urine 1.015 (1.005-1.025); UMIC TRIGGER UACC YES
[2025-04-25 14:05] LABS: MANUAL DIFF FLAG NO
[2025-04-25 14:11] LABS: Hematocrit 44.0 % (37.0-47.0); Hemoglobin 14.3 g/dl (12.0-16.0); Imm Gran Abs Auto 0.05 X10*3/uL (0.00-0.03); Imm Gran Pct Auto 0.6 % (0.0-0.4); Lymphocytes Absolute Auto 0.7 X10*3/uL (1.2-4.9); Mean Corpuscular HGB Conc 32.5 g/dl (31.0-35.0); Mean Corpuscular Hemoglobin 29.3 pg (27.0-33.0); Mean Corpuscular Volume 90.2 fL (80.0-98.0); NRBC Abs Auto 0.000 X10*3/uL (0.0-0.012); NRBC Pct Auto 0.0 /100WBC (0.0-0.2); Platelet Count 315 X10*3/uL (160-400); Red Blood Count 4.88 X10*6/uL (4.20-5.50); White Blood Count 8.2 X10*3/uL (4.8-10.8)
[2025-04-25 14:18] LABS: UACC Culture Trigger YES
[2025-04-25 14:42] LABS: Alanine Aminotransferase 18 U/L (0-31); Albumin Level 4.2 g/dL (3.5-5.0); Alkaline Phosphatase 99 U/L (39-117); Anion Gap 12 (12-20); Aspartate Amino Transferase 19 U/L (5-31); Blood Urea Nitrogen 29 mg/dL (9-16); Calcium 10.0 mg/dL (8.4-10.2); Carbon Dioxide 23 mmol/L (22-29); Chloride 108 mmol/L (96-108); Cholesterol 159 mg/dL (<200); Estimated Glomerular Filt Rate 34; HDL Cholesterol 28 mg/dL (>40); Magnesium 2.0 mg/dL (1.6-2.6); Potassium 4.4 mmol/L (3.3-5.1); Sodium 139 mmol/L (135-145); Total Protein 7.2 g/dL (6.5-8.0); Triglycerides 152 mg/dL (<150); Uric Acid 8.2 mg/dL (2.4-5.7)
[2025-04-25 14:47] LABS: Microalbum/Creatinine Ratio Ur 29.1 ug/mg cr (<30)
[2025-04-25 15:03] LABS: Ferritin 112 ng/mL (10-250)
[2025-04-25 15:31] LABS: Folate 8.5 ng/mL (> or = 4.0); Vitamin B12 > 2000 pg/mL (200-900)
[2025-04-25 16:53] LABS: Free T4 (Free Thyroxine) 1.16 ng/dL (0.71-1.85)
== END 2025-04-25 11:19 | disposition home or self-care (01) ==
LOC: HO.HMGCLDS 11:18
PROVIDERS: PCP Internal Medicine; Visit Provider Internal Medicine
DX: E11.9 Type 2 diabetes mellitus without complications (principal); E83.42 Hypomagnesemia; E53.8 Deficiency of other specified B group vitamins; E78.00 Pure hypercholesterolemia, unspecified; D64.9 Anemia, unspecified; M10.9 Gout, unspecified; N17.9 Acute kidney failure, unspecified
CPT/HCPCS: 36415; 80053; 80061; 81001; 82043; 82306; 82570; 82607; 82728; 82746; 83036; 83735; 84439; 84443; 84550; 85025; 87086

== ENCOUNTER 2025-04-28 13:38 | Outpatient (REF) | payer MEDICARE, OTHER, SELFPAY | END 2025-04-28 13:39 | disposition home or self-care (01) | LOC: HO.LAB 13:38 | PROVIDERS: PCP Internal Medicine | DX: N39.0 Urinary tract infection, site not specified (principal); Z79.899 Other long term (current) drug therapy | CPT/HCPCS: 81003; 99212 ==

== ENCOUNTER 2025-04-28 13:38 | Outpatient (AMB) | payer MEDICARE, OTHER, SELFPAY ==
--- OUTSIDE RECORDS SUMMARY | 2025-03-07 08:00 | XMS_ITS ---
Author Organization [facility] Address [address] [place] [address] Care Team Providers Care Axle Turner Name Role Phone Donal BELTRÁN, Jamel Primary Care Provider Unaivan donahue Haji Steven Unavailable [phone] REASON FOR VISIT anemia Encounters Encounter Location Date Provider Diagnosis [facility] [address] [facility] [address] [place] [address] 03/07/2025 Steven Haji Plan Of Treatment Next Appt Details Provider Name:Steven Haji , 03/20/2026 01:00:00 PM, [address], [address], [place], [address], Progress Notes * SUKHDEEP CARTER ADOB: 0 (84 yo F)Acc No.[id number]:03/07/2025 Progress Notes Patient: Pedro SUKHDEEP RODRIGUEZ Provider: Teresita Haji MD :1940 A ge:84 Y S ex:Female Date:03/07/2025 Address:[address] [place] [address] [address], [place], [place] Pcp:Jamel Mansfield MD Subjective: * Chief Complaints: * A nemia * The named appointment provid er may or may not be the originator of this progress note, and it is not deemed complete until electronically signed by the appointment provider. Sign off status: Pending * Provider: Teresita Haji MD Date: 1 Generated for Printi ng/Famonicag/eTransmitting on: 1 06/29/2024 01:41 PM EST
--- OUTSIDE RECORDS SUMMARY | 2025-04-28 13:41 | XMS_ITS | Encounter Summary ---
Author Organization [facility] Address [address] [place] [address] [place] [address] Phone Care Team Providers Care Magnetic Prospecting Supervisor Name Role Phone Jamel Mansfield MD Primary Care Provider [phone] [phone] Encounter Details Date Type Department Care Team (Late st Contact Info) Description 08/13/2022 Procedure Pass [facility] [address] [place] [address] Social History Tobacco Use Types Packs/Day Years [...] Care Team (Late st Contact Info) Description 05/31/2025 1:00 PM EST Office Visit [facility] [address] [place] [address] 3rd Floor, [address] [place] [address] Darryl Khan MD [address] [place] [address] [email or web address] documented as of this encounter Visit Diagnoses Not on filedocumented in this encounter Additional Health Concerns Infection Onset Date Last Indicated Resolved Time CoV-Risk Comment:Per note documentation 09/14/2022 09/14/2022 3 1:18 PM EDT documented as of this encounter Care Teams Magnetic Prospecting Supervisor Relationship Specialty Start Date End Date Jamel Mansfield MD [address] [place] [address] [place] [address] PCP - General 03/04/17 documented as of this encounter Additional Source Comments The information contained in this document represents components of the legal health record. It is not the complete legal health record.[facility]
--- OUTSIDE RECORDS SUMMARY | 2025-04-28 13:41 | XMS_ITS | Encounter Summary ---
Author Organization [facility] Address Formerly [facility] [address] [place] [address] Phone Care Team Providers Care Coil Inspector Name Role Phone Jamel Mansfield MD Primary Care Provider [phone] [phone] Encounter Details Date Type Department Care Team (Late st Contact Info) Description 02/16/2024 Procedure Pass [facility] [place] [place], [place] [id number] Social History Tobacco Use Types Packs/Day Years [...] Description 05/31/2025 1:00 PM EST Office [facility] 3[facility], [address] [place] [address] Darryl Khan MD [address] [place] [address] [email or web address] documented as of this encounter Visit Diagnoses Not on filedocumented in this encounter Care Teams Coil Inspector Relationship Specialty Start Date End Date Jamel Mansfield MD [address] [place] [address] [address] PCP - General 03/04/17 documented as of this encounter Additional Source Comments The information contained in this document represents components of the legal health record. It is not the complete legal health record.[facility]
--- OUTSIDE RECORDS SUMMARY | 2025-04-28 13:41 | XMS_ITS | Clinical Summary ---
Author Organization [facility] Address [address] [place] [address] Care Team Providers Care Aligning Inspector Name Role Phone Jamel Mansfield MD Primary Care Provider [phone] Social History Tobacco Use Types Packs/Day Years [...] age to complete this topic Insurance Medicare [facility] Care Teams Aligning Inspector Relationship Specialty Start Date End Date Jamel Mansfield MD [address] [place] [address] DR[address] [place] [address] PCP - General Internal Medicine 10/08/22
--- OUTSIDE RECORDS SUMMARY | 2025-04-28 13:41 | XMS_ITS | Encounter Summary ---
Author Organization [facility] Address [facility] [address] [place] [address] Phone Care Team Providers Care Cloth Pattern Maker Name Role Phone Jamel Mansfield MD Primary Care Provider [phone] [phone] Encounter Details Date Type Department Care Team (Late st Contact Info) Description 04/24/2020 Procedure Pass Echo Lab [place] [place] [address] Social History Tobacco Use Types Packs/Day Years [...] Description 05/31/2025 1:00 PM EST Office Visit [facility] [address] 3rd Floor, [address] [place] [address] Darryl Khan MD [address] [place] [address] documented as of this encounter Visit Diagnoses Not on filedocumented in this encounter Additional Health Concerns Infection Onset Date Last Indicated Resolved Time CoV-Exposed Comment:Close contact 04/30/2020 05/05/2020 05/14/2020 1:25 AM EST CoV-Risk Comment:Per note documentation 09/14/2022 09/14/2022 3 1:18 PM EDT documented as of this encounter Care Teams Cloth Pattern Maker Relationship Specialty Start Date End Date Jamel Mansfield MD [address] [place] [address] [facility] [address] PCP - General 03/04/17 documented as of this encounter Additional Source Comments The information contained in this document represents components of the legal health record. It is not the complete legal health record.[facility]
--- OUTSIDE RECORDS SUMMARY | 2025-04-28 13:41 | XMS_ITS | Encounter Summary ---
Author Organization [facility] Address [facility] [address] [place] [address] Phone Care Team Providers Care Assignment Desk Assistant Name Role Phone Jamel Mansfield MD Primary Care Provider [phone] [phone] Encounter Details Date Type Department Care Team (Late st Contact Info) Description 09/25/2022 Procedure Pass [facility], Ct Scan - [address] [address] Social History Tobacco Use Types Packs/Day Years [...] Description 05/31/2025 1:00 PM EST Office Visit [facility] [address] [place] [address] 3rd Floor, [address] [place] [address] Darryl Khan MD [address] [place] [address] [email or web address] documented as of this encounter Visit Diagnoses Not on filedocumented in this encounter Care Teams Assignment Desk Assistant Relationship Specialty Start Date End Date Jamel Mansfield MD [address] [place] [address] [address] PCP - General 03/04/17 documented as of this encounter Additional Source Comments The information contained in this document represents components of the legal health record. It is not the complete legal health record.[facility]
--- OUTSIDE RECORDS SUMMARY | 2025-04-28 13:41 | XMS_ITS | Patient Health Record ---
Author Organization [facility] Address [address] [place] [address] Care Team Providers Care Coal Mill Operator Name Role Phone Donal BELTR[place], [place] Primary Care Provider Carolyn Pineda Unavailable [phone] Allergies Allergen (clinical drug ingredient) Drug/Non Drug [...] Duration) Notes Start Date End Date Status [facility] Active Nabumetone 500 MG 1 tablet Orally Twic e a day; Duration: 30 day(s) 08/02/2014 Not-Taking Torsemide 20 MG 1 tablet Orally Once a day Active Colcrys 0.6 MG 1 tablet Orally Up t o Four times a day; Duration: 5 days 10/10/2014 Not-Taking Metoprolol Tartrate 75 MG 1 tablet with food Orally daily Active Warfarin Sodium 5 MG 1 tablet Orally Onc e a day Active Breo Ellipta 200-25 MCG/ACT Inhalation; Duration: 90 Days Active Advair Diskus Not-Ta tila Losartan Potassium 100 MG 1 tablet Orall y Once a day; Duration: 30 day(s) Not-Taking metFORMIN HCl 500 MG 1 tablet with meals Orally Twice a day Not-Taking Paxil 30 MG 1 tablet in the morning Orally Once a day Not-Taking Diovan HCT 160-12.5 MG 1 tablet Orally O nce a day Not-Taking Diphenoxylate-Atropine 2.5-0.025 MG/5ML 5 mL as needed Orally Four times a day Active Symbicort 160-4.5 MCG/ACT 2 puffs Inhala tion Twice a day Not-Taking Spironolactone Activ e Singulair 10 MG 1 tablet in the evening Orally Once a day Not-Taking Mirtazapine 15 MG 1 tablet at bedtime Orally Once a day; Duration: 30 day(s) Active traZODone HCl 50 MG Orally Active Januvia 100 MG 1 tablet Orally Once a day; Duration: 30 day(s) Active Colcrys 0.6 MG 1 tablet Orally Once a day; Duration: 30 days 10/10/2014 Not-Takin g Allopurinol 100 MG 1 tablet Orally Once a day; Duration: 30 day(s) Active Atorvastatin Calcium 40 MG 1 tablet Oral ly Once a day Active Citalopram Hydrobromide 40 MG 0.5 tablet Orally Once a day; Duration: 30 day(s) Active Cilostazol 50 MG 1 tablet 30 minutes before or 2 hours after breakfast and dinner Orally Twice a day; Duration: 30 day(s) Active dilTIAZem HCl ER Beads 240 MG 1 capsule Orally Once a day; Duration: 30 day(s) Active Lansoprazole 30 MG 1 capsule before a meal Orally Once a day Active Montelukast Sodium 10 MG 1 tablet Orally Once a day; Duration: 30 day(s) Active Immunizations Vaccine Route Administration Date Status Comme nts Influenza Unknown 02/14/2022 Administered Influenza Unknown 02/15/2024 Administered Influenza Unknown 02/17/2025 Administered COVID-19 Pfizer BioNTech Vaccine Unknown 02/14/2022 Administered 1st 06/21/20,07/12/20 03/14/21 Social History Tobacco Use: Social History Observation Description Date Details (start date - stop date) Never Smoker NA - NA Tobacco use other than smoking: Question Answer [...] Problem Information temporarily unavailable 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, bilateral legs (I70.203) Active confirmed Problem Information temporarily unavailable Other hammer toe(s) (acquired), left foot (M20.42) Active confirmed Problem Information temporarily unavailable Type 2 diabetes mellitus with diabetic polyneuropathy (E11.42) Active confirmed Problem Information temporarily unavailable Type 1 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) Active confirmed Vital Signs Blood pressure diastolic 70 mm Hg 04/19/2025 Height 5 ft 2.5 in in 04/19/2025 Blood pressure systolic 123 mm Hg 04/19/2025 Weight 182 lbs 04/19/2025 BMI 32.75 kg/m2 04/19/2025 Procedures Procedure Date Ordered Date Performed Result Body Sit e 60353-AXJKXNP NAIL, 6 OR MORE 02/07/2025 N/A 33832-KOTK SKIN LESIONS, 2 TO 4 02/07/2025 N/A Encounters Encounter Location Date Provider Diagnosis [facility] [address] [address] 02/07/2025 Carolyn Fonseca Type 2 diabetes mellitus with diabetic polyneuropathy E11.42 ; Tinea unguium B35.1 ; Other hammer toe(s) (acquired), right foot M20.41 and Other hammer toe(s) (acquired), left foot M20.[address] [facility] [address] 04/19/2025 Carolyn Fonseca Type 2 diabetes mellitus with diabetic polyneuropathy E11.42 and Tinea unguium B35.1 Assessments Encounter Date Diagnosis (ICD Code) Assessment Notes Treatment Notes Treatment Clinical Notes Section Notes 02/07/2025 Type 2 diabetes mellitus with diabetic polyneuropathy (ICD-10 - E11.42) 02/07/2025 Tinea unguium (ICD-10 - B35.1) 04/19/2025 Type 2 diabetes mellitus with diabetic polyneuropathy (ICD-10 - E11.42) 04/19/2025 Tinea unguium (ICD-10 - B35.1) 02/07/2025 Other [...] *Uric Acid, Serum 10/10/2014 *Sedimentation Rate-Westergren 5 42874-MIZGZLV NAIL, 6 OR MORE 02/07/2025 65999-KVEVUML NAIL, 1-5 09/13/2014 14378-LIMD SKIN LESIONS, 2 TO 4 02/08/20 25 48179-JUXC SKIN LESIONS, 2 TO 4 07/23/19 21 60911-GLNO SKIN LESIONS, 2 TO 4 10/22/19 21 65872-UVWK SKIN LESIONS, 2 TO 4 01/14/20 21 20689-UEEF SKIN LESIONS, 2 TO 4 04/23/20 21 10553-BHCI SKIN LESIONS, 2 TO 4 08/07/19 22 04202, X3094-LLIGZ/INJECT, JOINT/BURSA 0 10/24/2015 68135, J0702- Neuroma/Injection 05/31/19 15 12648, J0702- Neuroma/Injection 10/26/19 15 Next Appt Details Provider Name:Carolyn Sabine motta, 07/18/2025 03:00:00 PM, [address] [facility], [place], [address], Insurance Providers Payer Name Payer Address Payer Phone Subscriber Number Group Number Insured Name Patient Relationship to Insured Coverage Start Date Coverage End Date Medicare [facility] [address] [place] [address] [id number] Alice Martinez Self - patient is the [facility] [address] [facility] [place] [address] [phone] [id number] Martinez Alice Self - patient is the insured Medical (General) History Medical History History ICD Code Anxiety Arthritis asthma Cholesterol Depression High blood pressure Lung disease Anemia Back,Hip,and Knee pain Broken bones Cataracts Gout Kidney disease Neuropathy Reflux ( GERD) chronic sinusitis Measles Chicken pox Joint implants/screws D.A.D type II diabetes Surgical History Surgery Date(Month/Year) pins in right hip 02/13/2014 hysterectomy 1973 tonsillectomy 194 back surgery bladder suspension 1997 appendectomy 1960 lipoma nye Bun, left 08/16/2014 hip surgery 2015 Stent main artery 08/14/20 angioplasty legs Guille 12/10/2020 Hospitalization History Reason Date(Month/Year) [facility] vascular sx 08/14/20-08/21/20 [facility]- Bunion surgery left foot 08/16/14
[2025-04-28 13:42] VITALS: BP 126/90; PULSE 55; RESP 16; TEMP 36.3; O2SAT 95; BMI 33.8
--- NOTE | 2025-04-28 13:42 | MHC.OFFWIV ---
Intake Vital Signs 04/28/25 13:42 Height 5 ft 2 in Weight 185 lb BMI 33.8 BP 126/90 H Blood Pressure Location Lt brachial Position Sitting Respiration 16 Pulse 55 Pulse Source Pulse Oximeter Temp 97.3 F Temp Source Oral Pulse Oximetry (%) 95 Oxygen Delivery Method Room Air Intake Visit Reasons: EP, blood in urine Intake Note: Pt is here today c/o blood in urine Patient Tobacco Use Status: Former Tobacco user Allergies Iodinated Contrast Media (IV DYE, IODINE CONTAINING CONTRAST ) Allergy (Severe, Verified 04/28/25 13:43) HIVE Penicillins (PENICILLINS) Allergy (Severe, Verified 04/28/25 13:43) HIVES Medication List - Last Reconciled 04/28/25 by Alex Acevedo MD albuterol sulfate 90 mcg/actuation (Ventolin HFA) 2 puffs inhalation Q4-6H PRN allopurinol 100 mg PO DAILY 90 days atorvastatin (Lipitor) 80 mg PO DAILY cholecalciferol (vitamin D3) 50 mcg PO DAILY 90 days citalopram 20 mg PO dapagliflozin propanediol (Farxiga) 5 mg PO QAM diltiazem HCl ER 240 mg PO DAILY diphenoxylate-atropine 2.5-0.025 mg tabs PO PRN ferrous sulfate (Feosol) 325 mg PO BID fluticasone furoate-vilanterol 200-25 mcg/dose 1 ea inhalation DAILY Incruse Ellipta 62.5 mcg/actuation (umeclidinium) 1 inh inhalation DAILY 30 days NS Januvia (sitagliptin phosphate) 100 mg PO DAILY 30 days NS lansoprazole (Prevacid) 30 mg PO DAILY@0630 mecobalamin (vitamin B12) 5,000 mcg PO DAILY melatonin 10 mg PO BEDTIME PRN metoprolol succinate ER 75 mg PO DAILY mirtazapine 15 mg PO BEDTIME montelukast 10 mg PO DAILY nystatin 1 appl topical TID 10 days potassium chloride ER 50 mEq PO DAILY prothrombin time/INR test metr (Coaguchek XS Pro) As directed prothrombin time/INR test metr (Coaguchek XS Pro) As directed spironolactone 25 mg PO DAILY torsemide 20 mg PO .QOD trazodone 50 mg PO BEDTIME warfarin Take 1 tablet daily or as instructed orally; HPI EP, blood in urine HPI Details 84-year-old female with history of hemorrhagic cystitis and chronically anticoagulated with warfarin secondary to atrial fibrillation presents for hematuria. Had recent lab work including urinalysis which showed no blood in urine 3 days ago, though it did show 2+ bacteria and small leukocyte esterase. No crystals. today, urine dip shows 2+ leukocyte, 3+ blood though no nitrites. she notes some discomfort at urethral opening no fevers or chills. no abdominal pain, nausea or back pain no groin pain. [facility] Medical History Pneumonia Chronic diastolic heart failure CHF (congestive heart failure) Thrush, oral GI bleed Occult blood positive stool Microcytic anemia Valvular heart disease Exertional dyspnea Hemorrhagic cystitis Osteopenia Toxic multinodular goiter Obesity (BMI 30-39.9) Hearing impairment Peripheral vascular disease Obesity (BMI 30-39.9) Depression Anxiety Osteoarthritis of ankle and foot Vitamin D deficiency Allergic rhinitis Anemia GERD without esophagitis Gout Hypomagnesemia Multiple thyroid nodules Pure hypercholesterolemia Benign essential hypertension PSVT (paroxysmal supraventricular tachycardia) PAC (premature atrial contraction) COPD (chronic obstructive pulmonary disease) Chronic kidney disease (CKD), stage III (moderate) Type 2 diabetes mellitus with diabetic chronic kidney disease Sciatica of right side Surgical History History of colonoscopy History of angioplasty of peripheral vessel (~08/13/20) History of biopsy History of neck surgery History of cataract surgery History of bladder surgery History of tonsillectomy and adenoidectomy History of appendectomy History of hysterectomy Family History Father Stroke CVD (cardiovascular disease) Mother CVD (cardiovascular disease) Hypertension CAD (coronary artery disease) Other Mental health disorder Social History Household Members: None Housing: Condominium Do you presently have visiting nurse or other home services: Yes (catalyst concentration operator once per week- [facility]) Alcohol intake: current Alcohol intake frequency: holidays/special occasions only Alcohol type: beer and hard liquor Patient Tobacco Use Status: Former Tobacco user Tobacco use type: Cigarette Cigarette Packs Per Day: 2 Cigarettes Per Day: 40.0 Years Smoked: 40 e-Cigarette/Vaping Use: Never Used Second Hand Smoke Exposure: Yes service: No Current occupational status: retired Cognitive needs: Yes (cane) Hearing needs: Yes Vision needs: Yes Review of Systems Const Denies chills, Denies fatigue, Denies fever(s), Denies headache(s) and Denies weakness ENT Denies dizziness and Denies headache(s) Card Denies dyspnea Resp Denies cough, Denies dyspnea, Denies wheezing and Denies other ( shortness of breath) Details: see HPI Musc Denies numbness and Denies tingling Neuro Denies dizziness, Denies headache(s), Denies numbness, Denies tingling, Denies paresthesias and Denies weakness Psych Denies anxiety and Denies depression Endo Denies fatigue Aller/Immun Denies wheezing Physical Exam Vital Signs: Last Vital Signs Temp 97.3 F 04/28/25 13:42 Pulse 55 04/28/25 13:42 Resp 16 04/28/25 13:42 BP 126/90 H 04/28/25 13:42 Pulse Ox 95 04/28/25 13:42 Oxygen Delivery Method Room Air 04/28/25 13:42 BMI result Body Mass Index 33.8 Const Other: nontoxic General: no acute distress and well developed Nutritional Appearance: well nourished Orientation/consciousness: patient oriented x3 HEENT Head: Yes normocephalic and Yes atraumatic Eyes General: appearance normal, both eyes and all related structures Pupils: Equal, round and reactive pupils present EOM: EOMs intact bilaterally Resp Effort & Inspection: normal respiratory effort Auscultation: clear to auscultation bilaterally Cardio Rate: regular rate Rhythm: regular rhythm Heart sounds: S1 normal heart sound present, S2 normal heart sound present, no gallops, no murmurs and no rubs Other: no CVA TTP Neuro General: patient oriented x3 and gait normal Cranial nerves: Yes Equal, round and reactive pupils present Psych Affect: normal affect Results AMB Urinalysis, Automated UA Leukoctes 125 Lionel/uL Last Edit by Ruth Iqbal CMA on 04/28/25 13:56 UA Nitrite Negative Last Edit by Ruth Iqbal CMA on 04/28/25 13:56 UA Urobilinogen 0.2 mg/dL Last Edit by Ruth Iqbal CMA on 04/28/25 13:56 UA Protein 0 mg/dL Last Edit by Ruth Iqbal CMA on 04/28/25 13:56 UA pH 6.0 Last Edit by Ruth Iqbal CMA on 04/28/25 13:56 UA Blood 200 Conrado/uL Last Edit by Ruth Iqbal, LEONARDO on 04/28/25 13:56 UA Specific Union 1.020 Last Edit by Ruth Iqbal CMA on 04/28/25 13:56 UA Ketone Negative Last Edit by Ruth Iqbal, LEONARDO on 04/28/25 13:56 UA Bilirubin 0 mg/dL Last Edit by Ruth Iqbal CMA on 04/28/25 13:56 UA Glucose 1000 mg/dL Last Edit by Ruth Iqbal CMA on 04/28/25 13:56 Assessment & Plan Assessment & Plan (1) UTI (urinary tract infection): Code(s): N39.0 - Urinary tract infection, site not specified Plan: 84-year-old female with history of hemorrhagic cystitis and anticoagulated presents with recent/acute onset of hematuria and some urethral discomfort. Recent urinalysis 3 days ago suggestive of early UTI and more pronounced today. No discomfort consistent with urinary stone and no crystals on UA start Macrobid patient was unable to give enough sample to send out today. Had recent urinalysis 3 days ago and will ask the lab to send for culture if enough urine was provided at that time and still available. Hydrate well Finish all antibiotic unless there is a problem. Call for any problems. She has an appointment with her PCP at the end of the. week. Follow-up with PCP. Orders: Orders AMB Urinalysis Automated Today Alex Acevedo MD Z13.9 - Encounter for screening, unspecified Medications: New nitrofurantoin monohyd/m-cryst 100 mg (Macrobid) must administer with a meal/food 100 mg PO BID 14 caps 0RF 7 days Alex Acevedo MD N30.91 - Cystitis, unspecified with hematuria Changed From metoprolol succinate ER 100 mg PO DAILY 90 tabs 1RF To metoprolol succinate ER 75 mg PO DAILY Jamel Mansfield MD Coding Level of Care Code Est Pt Level 3 (57477) Diagnoses UTI (urinary tract infection) N39.0
--- OUTSIDE RECORDS SUMMARY | 2025-04-28 13:42 | XMS_ITS | Encounter Summary ---
Author Organization [facility] Address [facility] [address] [place] [address] Phone Care Team Providers Care Glaze Mixer Name Role Phone Jamel Mansfield MD Primary Care Provider [phone] [phone] Encounter Details Date Type Department Care Team (Late st Contact Info) Description 07/16/2021 Procedure Pass Echo Lab [place] [place] [address] Social History Tobacco Use Types Packs/Day Years [...] Description 05/31/2025 1:00 PM EST Office Visit [facility] [address] [place] [address] [address]rd Floor, [address] [place] [address] Darryl Khan MD [address] [place] [address] [email or web address] documented as of this encounter Visit Diagnoses Not on filedocumented in this encounter Additional Health Concerns Infection Onset Date Last Indicated Resolved Time CoV-Risk Comment:Per note documentation 09/14/2022 09/14/2022 3 1:18 PM EDT documented as of this encounter Care Teams Glaze Mixer Relationship Specialty Start Date End Date Jamel Mansfield MD [address] [place] [address] [place] [address] PCP - General 03/04/17 documented as of this encounter Additional Source Comments The information contained in this document represents components of the legal health record. It is not the complete legal health record.[facility]
--- OUTSIDE RECORDS SUMMARY | 2025-04-28 13:42 | XMS_ITS | Clinical Summary ---
Author Organization [facility] Address [address] [place] [address] [address] [place] [address] Phone Care Team Providers Care Blood Bank Coordinator Name Role Phone Jamel Mansfield MD Primary Care Provider [phone] [phone] Allergies Active Allergy Reactions Criticality Noted Date Comments Iodinated Contrast Media Hives 09/04/2017 Penicillins Hives 09/04/2017 Medications lansoprazole (PREVACID) 30 MG capsule Take 1 capsule by mouth daily. Active traZODone (DESYREL) 50 MG tablet Orally Once a day Active montelukast (SINGULAIR) 10 mg tablet Take 1 tablet by mouth every evening. Active ferrous sulfate 325 mg (65 mg napaimute iron) tablet Take 325 mg by mouth [...] daily. Active cyanocobalamin (VITAMIN B-12) 500 mcg/spray [place] 500 mcg by Right Nare route. Active [...] MOUTH DAILY. 90 tablet 1 5 Active predniSONE (DELTASONE) 50 MG tablet Take 1 tablet (50 mg total) by mouth 2 (two) times a day for 3 doses. Please take two doses of 50 mg 12 hours apart on the day before your CT scan with IV contrast. Please take an additional 50mg on the morning of your CT scan 3 tablet 5 025 famotidine (PEPCID) 20 MG tablet Take 1 tablet (20 mg total) by mouth 2 (two) times a day for 3 doses. Please take two doses of 20 mg 12 hours apart on the day before your CT scan with IV contrast. Please take an additional 20 mg on the morning of your CT scan 3 tablet 5 025 diphenhydrAMINE (BENADRYL) 25 mg tablet Take 1 tablet (25 mg total) by mouth once for 1 dose. Please take the morning of your CT scan 1 tablet 5 025 Active Problems Problem Noted Date Diagnosed Date Valvular heart disease 11/27/2024 Assessment & Plan (11/27/2024 3:09 PM EDT): She has moderate aortic stenosis/moderate AI, severe mitral stenosis/moderate mitral regurgitation. Ongoing symptoms of exertional dyspnea which really limit her daily activity. Currently euvolemic on exam. Previously was deemed not to be a surgical candidate for valve repair through [facility]. She declined obtaining a second opinion, she is not interested in undergoing open heart surgery at her age. We did discuss potential for TAVR versus enrollment in [place] trial with possible TMVR. The exact inclusion [...] torsemide 10 mg fdaily -Patient was at [facility] at the end of July with CHF [...] to obtain a lipid panel from the [facility] system. Goal LDL is less than [...] of claudication. I recommended she follow-up with [facility] vascular who has been managing this as [...] paroxysmal SVT which was diagnosed in 2019. No recent episodes. Continue with diltiazem. Assessment [...] frequently at her PCP office in the [facility] system. I have discussed with her that given her extensive peripheral arterial disease, she should have an LDL of less than 70. We will try to obtain a lipid panel from [facility]. She is on 40 mg of [...] Encounters Date Type Department Care Team Description 04/24/2025 Orders Only [facility] [address] 3[address] Floor, [address] [place] [address] Ashley Hernandez CNP 04/24/2025 Telephone [facility] [address] Floor, [address] [place] [address] Ashley Hernandez, MILAD 02/22/2025 Refill [facility] [address] Floor, [address] [place] [address] Vanesa García PA-C Medication Refill 02/16/2025 3:20 PM EDT Office Visit [facility] [address] 3[address] Floor, [address] [place] [address] Darryl Khan MD Nonrheumatic mitral valve stenosis (Primary Dx); Nonrheumatic aortic valve stenosis from Last 3 Months Immunizations Immunization Administration [...] 02/16/2025 3:19 PM EDT Plan of Treatment Upcoming Encounters Date Type Department Care Team (Late st Contact Info) Description 05/31/2025 1:00 PM EST Office Visit [facility] [address] [facility] 3rd Floor, [address] [place], [place] [id number] Darryl Khan MD [address] [place] [address] [email or web address] Health Maintenance Due Date Last Done Comments [...] EST) SODIUM 139 133 - 146 mmol/L [facility] CHLORIDE 105 96 - 108 mmol/L [facility] POTASSIUM 4.0 3.3 - 5.1 mmol/L [facility] CO2 22 21 - 35 mmol/L [facility] BUN 33(H) 6 - 19 mg/dL [facility] CREATININE 1.60(H) 0.5 - 1.5 mg/dL [facility] GLUCOSE 189(H) 70 - 99 mg/dL [facility] CALCIUM 9.6 8.4 - 10.3 mg/dL [facility] EGFR 32(L) >59 mL/min/1.7 3m2 [facility] Comment:Estimated glomerular filtration rate calculated using the CKD-EPI refit equation. ANION GAP 16 10 - 20 mmol/L [facility] Blood 06/21/2024 1:18 PM EST 06/21/2024 1:20 PM EST us Gaudencio Whitfield MD LAB BLOOD BKR ORDERABLES Final R esult [facility] [address] [place] [address] * (ABNORMAL) Hemoglobin A1c (09/15/2022 5:46 AM EDT) HEMOGLOBIN A1C 6.1(H) 4.3 - 5.8 % [facility] Blood 09/15/2022 5:46 AM EDT 09/15/2022 6:11 AM EDT us Kayla Alfred DO LAB BLOOD BKR ORDERABLES Ofelia l Result [facility] [address] [place] [address] from Last 3 Months or Most Recently Relevant to Health Maintenance Insurance [address] [place] [address] MEDICARE PART A & B [facility] MEDICARE SUPPLEMENT [address] [place] [address] MEDICARE PART A & B MEDICARE SUPPLEMENT MEDICARE PART A & B MEDICARE SUPPLEMENT [address] [place] [address] MEDICARE PART A & B MEDICARE SUPPLEMENT MEDICARE PART A & B MEDICARE SUPPLEMENT [address] [place] [address] MEDICARE PART A & B MEDICARE SUPPLEMENT [address] [place] [address] MEDICARE PART A & B MEDICARE SUPPLEMENT MEDICARE PART A & B MEDICARE SUPPLEMENT MEDICARE PART A & B MEDICARE SUPPLEMENT Advance Directives For more information, please contact: [phone] (9AM - 5PM [facility], Wednesday-Wednesday) Documents on File Type Date Recorded Patient Addresser Expl anation Power of Manager Nuclear Healthcare Proxy 08/20/2020 Healthcare Proxy * Full Code (Latest Code Status on File) Date Activated Date Inactivated Comments 09/14/2022 3:33 PM Question Answer Comments Code Status Confirmed With: Patient Care Teams Blood Bank Coordinator Relationship Specialty Start Date End Date Jamel Mansfield MD [address] [place] [address] [address] [place] [address] PCP - General 03/04/17 Additional Source Comments The information contained in this document represents components of the legal health record. It is not the complete legal health record.[facility]
--- OUTSIDE RECORDS SUMMARY | 2025-04-28 13:42 | XMS_ITS | Encounter Summary ---
Author Organization [facility] Address [facility] [address] [place] [address] Phone Care Team Providers Care Hotbed Lever Operator Name Role Phone Jamel Mansfield MD Primary Care Provider +1 [phone] Encounter Details Date Type Department Care Team (Late st Contact Info) Description 09/28/2022 Procedure Pass [facility] [address] [place] [address] Social History Tobacco Use Types Packs/Day Years [...] Description 05/31/2025 1:00 PM EST Office Visit [facility] [address] [place] [address] 3rd Floor, [address] [place] [address] Darryl Khan MD [address] [place] [address] [email or web address] documented as of this encounter Visit Diagnoses Not on filedocumented in this encounter Care Teams Hotbed Lever Operator Relationship Specialty Start Date End Date Jamel Mansfield MD [address] [place] [address] [address] PCP - General 03/04/17 documented as of this encounter Additional Source Comments The information contained in this document represents components of the legal health record. It is not the complete legal health record.[facility]
--- OUTSIDE RECORDS SUMMARY | 2025-04-28 13:42 | XMS_ITS | Patient Health Record ---
Author Organization [facility] Address [address] [place] [address] Care Team Providers Care Environmental Planning Engineer Name Role Phone Jamel Mansfield MD Primary Care Provider Steven Irving [phone] Allergies Allergen (clinical drug ingredient) Drug/Non Drug Allergy documented on EMR Reaction Allergy Type Onset Date Status contrast dye (uncoded) Unknown Allergy Active Penicillin Unknown Drug Allergy Active Results Component Value Reference Range Notes CT abdomen pelvis wo con Reviewed date:03/20/2025 01:41:13 PM Interpretation: Performing Lab: Notes/Report: [address] [address] [address] Scan Report Signed Patient: Alice Carter MR#: [id number] 89 : 1940 Acct:[id number] Age/Sex: 83 / F ADM Date: 06/02/24 Loc: HO.CT Attending Dr: Steven Haji MD Ordering Physician: Steven Haji MD Date of Service: 06/02/24 Procedure(s): CT abdomen pelvis wo IV con Accession Number(s): [id number] cc: Jamel Mansfield MD; Steven Haji MD Report Number: [id number]: Total DLP = 756.00 mGy-cm EXAMINATION: CT [...] by: Steven Casey MD 06/05/2024 08:42 AM [facility] Dictated By: Steven Casey MD Signed By: <Electronically signed by Steven Casey MD in OV> 06/05/24 0842 DD/ 1530 TD/TT: 06/02/24 1738 Tea Tree Farmer: Reason For Referral No Information Medications Medication SIG (Take, Route, Frequency, Duration) Notes Start Date End Date Status traZODone HCl 50 MG Tablet 1 tablet at bedtime Orally Once a day Active Breo Ellipta 200-25 MCG/ACT Aerosol Powder Breath Activated Inhalation; Duration: 30 Active Atorvastatin Calcium 40 MG Tablet 1 tablet Orally Once a day Active Lomotil 2.5-0.025 MG Tablet Take 1 or 2 Orally Every morning on a daily and regular basis to try to prevent diarrhea, and then take 1 or 2 every 4 to 6 hours as needed for diarrhea later in the day; Duration: 30 days 2023 Active Vitamin B 12 5000 mg 1 tablet Orally onc e a day Active Allopurinol 100 MG Tablet Oral; Duration: 90 Active Farxiga 5 MG Tablet 1 tablet Orally Once a day Active Lansoprazole 30 MG Capsule Delayed Release 1 capsule before a meal Orally twice a day /prn Active Clopidogrel Bisulfate 75 MG Tablet Oral; Duration: 90 Not-Takin g/PRN dilTIAZem HCl ER 240 MG Tablet Extended Release 24 Hour 1 tablet Orally Once a day; Duration: 30 day(s) Active Januvia Active Warfarin Sodium 2 MG Tablet 1 tablet Orally Once a day; Duration: 30 day(s) Active Citalopram Hydrobromide Active Metoprolol Succinate 100 MG Capsule ER 24 Hour Sprinkle 1 capsule Orally Once a day; Duration: 30 day(s) Active Mirtazapine Active Torsemide 20 MG Tablet 1 tablet Orally Every other day Active iron 65 mg tablet 1 tablet Oral bid Active Spironolactone 25 MG Tablet 1 tablet Orally Daily; Duration: 30 days Active Vitamin D-3 Active Cilostazol Not-Takin g/PRN Potassium 1 tab Oral; Duration: 14 days Active Dilt-XR Active Incruse Ellipta 62.5 MCG/ACT Aerosol Powder Breath Activated 1 puff Inhalation Once a day Active Montelukast Sodium A ctive Immunizations Vaccine Route Administration Date Status Comme nts Flu vaccine no Preserv 3 and > Unknown 03/30/2016 Admin istered Influenza Unknown 01/24/2020 Administered Influenza Unknown 02/14/2021 Administered Influenza Unknown 02/17/2023 Administered Influenza Unknown 03/02/2023 Administered Influenza Unknown 03/20/2024 Administered Pneumococcal Unknown 03/02/2023 Administered Social History Tobacco Use: Social History Observation Description Date Details (start date - stop date) Former Smoker NA - NA Social History Drug/Alcohol: Social Info Question Answer Notes AUDIT-C (Standard) Did you have a drink containing alcohol in the past year? Yes How often did you have a drink containing alcohol in the past year? 2 to 4 times a month (2 points) How many drinks did you have on a typical day when you were drinking in the past year? 3 or 4 drinks (1 point) How often did you have six or more drinks on one occasion in the past year? Never (0 point) Points 3 Interpretation Positive Tobacco Use: Social Info Question Answer Notes Tobacco Use/Smoking Patient is a former smoker Additional Details Category Social Info Options Details Miscellaneous: Marital status: Occupation: retired Section Notes: Nonsmoker > 10 yrs; no [...] Status W/U Status Risk Notes Problem Constipation (97693141) Constipation (K59.00) Active confirmed Problem Diarrhea (30853779) Diarrhea, unspecified (R19.7) Active confirmed Problem Gastroesophageal reflux disease (339693562) Gastroesophageal reflux disease, esophagitis presence not specified (K21.9) Active confirmed Problem Abnormal feces (458095098) Heme + stool (R19.5) Active confirmed Problem Anemia (064305500) Anemia (D64.9) Active confir med Problem Iron deficiency anemia due to chronic blood loss (409920136) Iron deficiency anemia due to chronic blood loss (D50.0) Active confirmed Problem Microcytic anemia (999047543) Microcytic anemia (D50.9) Active confirmed Problem Angiodysplasia of colon (45780001) Angiodysplasia of colon (K55.20) Active confirmed Problem Iron deficiency anemia (64679761) Iron deficiency anemia, unspecified iron deficiency anemia type (D50.9) Active confirmed Problem Diarrhea (70126253) Diarrhea, unspecified type (R19.7) Active confirmed Problem Chronic diarrhea (914905166) Chronic diarrhea (K52.9) Active confirmed Problem Irritable bowel syndrome (13769283) 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) Active confirmed Problem Pancreatic insufficiency (41477539) Pancreatic insufficiency (K86.89) Active confirmed Problem Incontinence of feces (23197686) Fecal soiling due to fecal incontinence (R15.9) Active confirmed Vital Signs Temperature 96.7 degrees Fahrenheit 03/20/2025 Blood pressure diastolic 01 mm Hg 03/20/2025 Height 62.5 in 03/20/2025 Blood pressure systolic 001 mm Hg 03/20/2025 Weight 186.6 lbs 03/20/2025 BMI 33.58 kg/m2 03/20/2025 Encounters Encounter Location Date Provider Diagnosis [facility] [address] [place] [phone] 03/20/2025 Steven Haji Constipation K59.00 ; Iron deficiency anemia, unspecified iron deficiency anemia type D50.9 ; Irritable bowel syndrome with both constipation [...] any further assistance in the future. 03/20/2025 Iron deficiency anemia, unspecified iron deficiency anemia type (ICD-10 - D50.9) Overall, Alice appears quite well considering her [...] B12 AND FOLATE 01/27/2022 CBC w DIFF 03/11/2021 CBC w DIFF 05/20/2021 CBC w DIFF 01/27/2022 CBC w DIFF 05/02/2016 CBC w DIFF 01/27/2022 CBC w DIFF 03/19/2021 CELIAC PANEL #10 04/29/2016 TRYPSIN,STOOL 12/06/2023 CT ABD & PELVIS WITH PO CONT ONLY 2023 STOOL WBC 12/06/2023 STOOL WBC 11/30/2023 C DIFFICILE RFLX PCR 11/30/2023 C DIFFICILE RFLX PCR 12/06/2023 Ferritin 03/19/2021 Ferritin 01/27/2022 Pancreatic Elastase-1 12/06/2023 Fecal Fat Qualitative 12/06/2023 Calprotectin, Fecal 11/30/2023 Calprotectin, Fecal 12/06/2023 Ova and Parasite 12/06/2023 Ova and Parasite 11/30/2023 GI PANEL 03/08/2024 GI PANEL 11/30/2023 GI PANEL 12/06/2023 Future Test Test Name Order Date UPPER GI ENDOSCOPY 04/18/2014 UPPER GI ENDOSCOPY 05/02/2016 COLONOSCOPY 05/02/2016 UPPER GI ENDOSCOPY 01/27/2022 COLONOSCOPY 01/27/2022 Next Appt Details Provider Name:Steven Haji , 03/20/2026 01:00:00 PM, [address] [place] [address], [address], [place], [address], Insurance Providers Payer Name Payer Address Payer Phone Subscriber Number Group Number Insured Name Patient Relationship to Insured Coverage Start Date Coverage End Date MEDICARE OF [place] [address] [place] [address] [id number] ALICE CARTER Self - patient is the insured [facility] [address] [place] [phone] [id number] ALICE CARTER Self - patient is the insured Medical (General) History Medical History History ICD Code 10/25/2009 Colonoscopy- neg except for h yperplastic polyps- no IBD Tubular adenomas removed in 2002 GERD-EGD in 1997- HH, but ot herwise negative; EGD 05/2014 small HH, no esophagitis, small area of Aguilera's- no dysplasia Depression Hyperlipidemia NIDDM COPD Hypertension Denies [place] or CVA Microcytic anemia in 2015- h emoglobin 10.8 with MCV 72 in [...] stenosis. She is being followed by a crew trainer Hospitalized 01/2022 for recu rrent anemia- Hgb [...] ri ght kidney Surgical History Surgery Date(Month/Year) Appendectomy Complete hysterectomy Lumpectomy-benign Back surgery Bladder suspension Right hip fracture with screws in 01/2014 after a fall Left toe surgery Vascular stenting for LE's w ith an upside down Y from aorta into iliacs as described by the patient-Dr. Siddiqi at [facility] 08/14/2020 and 11/2020 Hospitalization History Reason Date(Month/Year) Hospitalized for 2 weeks due to pneumonia, CHF, and Afib, and then rehab for 2 weeks. Spring 2022
--- OUTSIDE RECORDS SUMMARY | 2025-04-28 13:42 | XMS_ITS | Encounter Summary ---
Author Organization [facility] Address [facility] [address] [place] [address] Phone Care Team Providers Care Software Tools Engineer Name Role Phone Jamel Mansfield MD Primary Care Provider [phone] [phone] Encounter Details Date Type Department Care Team (Late st Contact Info) Description 02/16/2022 Procedure Pass Echo Lab [place] [place] [address] Social History Tobacco Use Types Packs/Day Years [...] Description 05/31/2025 1:00 PM EST Office Visit [facility] [address] [place] [address] 3rd Floor, [address] [place] [address] Darryl Khan MD [address] [place] [address] [email or web address] documented as of this encounter Visit Diagnoses Not on filedocumented in this encounter Additional Health Concerns Infection Onset Date Last Indicated Resolved Time CoV-Risk Comment:Per note documentation 09/14/2022 09/14/2022 3 1:18 PM EDT documented as of this encounter Care Teams Software Tools Engineer Relationship Specialty Start Date End Date Jamel Mansfield MD [address] [place] [address] [place] [address] PCP - General 03/04/17 documented as of this encounter Additional Source Comments The information contained in this document represents components of the legal health record. It is not the complete legal health record.[facility]
--- OUTSIDE RECORDS SUMMARY | 2025-04-28 13:42 | XMS_ITS | Encounter Summary ---
Author Organization [facility] Address [address] [place] [address] Phone Care Team Providers Care Senior Economist Name Role Phone Jamel Mansfield MD Primary Care Provider [phone] [phone] Encounter Details Date Type Department Care Team (Late st Contact Info) Description 04/24/2025 Telephone [facility] [address] [facility] 3rd Floor, [address] [place] [address] Ashley Hernandez, AGRICULTURAL RESEARCH TECHNOLOGIST [address] [place] [address] [email or web address] Social History [...] on file documented as of this encounter Progress Notes * Ann Porras RN - 04/24/2025 1:32 PM EST Pt informed * Ashley Hernandez CNP - 04/24/2025 1:26 PM EST Orders placed for Prednisone, Pepcid and Benadryl * Ann Porras RN - 04/24/2025 11:46 AM EST Pt pending pre valve ct scan She has contrast allergy Can you prescribe the prednisone? documented in this encounter Plan of Treatment Upcoming Encounters Date Type Department Care Team (Late st Contact Info) Description 05/31/2025 1:00 PM EST Office Visit [facility] [address] [place] [address] 3rd Floor, [address] [place] [address] Darryl Khan MD [address] [place] [address] documented as of this encounter Visit Diagnoses Not on filedocumented in this encounter Care Teams Senior Economist Relationship Specialty Start Date End Date Jamel Mansfield MD [address] [place] [address] Dr Brito [address] [place] [address] PCP - General 10/19/17 documented as of this encounter Additional Source Comments The information contained in this document represents components of the legal health record. It is not the complete legal health record.[facility]
--- OUTSIDE RECORDS SUMMARY | 2025-04-28 13:42 | XMS_ITS | Encounter Summary ---
Author Organization [facility] Address [address] [place] [address] Phone Care Team Providers Care Orchard Sprayer Name Role Phone Jamel Mansfield MD Primary Care Provider [phone] [phone] Reason for Referral * MRI/CAT Scan - Closed Specialty Diagnoses / Procedures Referred By Contac t Referred To Contact Radiology Diagnoses Peripheral vascular disease, unspecified Procedures CT Angio Abdominal Aorta and Bilateral Lower Extremity Runoff Ofelia Villasenor MD [address] [address] Phone: tel: fax: Referral ID Status Reason Start Date Expiration Date Visits Re quested Visits Authorized [id number] Closed 05/09/2019 05/08/2020 1 1 Encounter Details Date Type Department Care Team (Latest Contact Info) Description 05/09/2019 Transcribe Orders Virtual Department [address] [place] [address] Ofelia Villasenor MD [address] [address] Peripheral vascular disease, unspecified (Primary Dx) Social [...] Description 05/31/2025 1:00 PM EST Office Visit [facility] 3[address] [facility], [address] [place] [address] Darryl Khan MD [address] [place] [address] [email or web address] documented as of this encounter Results * [...] identified. TOTAL CTDIvol: 22.00 mGy POS - [id number] Narrative 05/30/2019 7:22 PM EST COMPARISON: None [...] stenosisidentified. TOTAL CTDIvol: 22.00 mGy POS - [id number] us Ofelia Villasenor MD IMG CT ABD/PELVIS [...] documented as of this encounter Care Teams Orchard Sprayer Relationship Specialty Start Date End Date Jamel Mansfield MD [address] [place] [address] [place] [address] PCP - General 03/04/17 documented as of this encounter Additional Source Comments The information contained in this document represents components of the legal health record. It is not the complete legal health record.[facility]
--- OUTSIDE RECORDS SUMMARY | 2025-04-28 13:42 | XMS_ITS | Encounter Summary ---
Author Organization [facility] Address [facility] [address] [place] [address] Phone Care Team Providers Care Shellac Polisher Name Role Phone Jamel Mansfield MD Primary Care Provider [phone] [phone] Encounter Details Date Type Department Care Team (Late st Contact Info) Description 07/23/2020 Procedure Pass Echo Lab [place] [place] [address] Social History Tobacco Use Types Packs/Day Years [...] Description 05/31/2025 1:00 PM EST Office Visit [facility] [address] [place] [address] 3rd Floor, [address] [place] [address] Darryl Khan MD [address] [place] [address] [email or web address] documented as of this encounter Visit Diagnoses Not on filedocumented in this encounter Additional Health Concerns Infection Onset Date Last Indicated Resolved Time CoV-Risk Comment:Per note documentation 09/14/2022 09/14/2022 3 1:18 PM EDT documented as of this encounter Care Teams Shellac Polisher Relationship Specialty Start Date End Date Jamel Mansfield MD [address] [place] [address] [place] [address] PCP - General 03/04/17 documented as of this encounter Additional Source Comments The information contained in this document represents components of the legal health record. It is not the complete legal health record.[facility]
--- OUTSIDE RECORDS SUMMARY | 2025-04-28 13:42 | XMS_ITS | Encounter Summary ---
Author Organization [facility] Address [address] [place] [address] Phone Care Team Providers Care Railway Signalling Engineer Name Role Phone Jamel Mansfield MD Primary Care Provider [phone] [phone] Encounter Details Date Type Department Care Team (Late st Contact Info) Description 04/24/2025 Orders Only [facility] [address] [facility] 3[address], [address] [place] [address] Ashley Hernandez, FINANCIAL OFFICER [address] [place] [address] [email or web address] Social History Tobacco Use Types Packs/Day Years [...] Description 05/31/2025 1:00 PM EST Office Visit [facility] [address] [place] [address] 3rd Floor, [address] [place] [address] Darryl Khan MD [address] [place] [address] [email or web address] documented as of this encounter Visit Diagnoses Not on filedocumented in this encounter Care Teams Railway Signalling Engineer Relationship Specialty Start Date End Date Jamel Mansfield MD [address] [place] [address] [address] PCP - General 03/04/17 documented as of this encounter Additional Source Comments The information contained in this document represents components of the legal health record. It is not the complete legal health record.[facility]
== END 2025-04-28 14:05 | disposition home or self-care (01) ==
PROVIDERS: PCP Internal Medicine; Visit Provider Family Medicine
DX: N39.0 Urinary tract infection, site not specified (principal); Z13.9 Encounter for screening, unspecified

== ENCOUNTER 2025-05-02 13:38 | Outpatient (REF) | payer MEDICARE, OTHER, SELFPAY ==
--- OUTSIDE RECORDS SUMMARY | 2025-03-07 08:00 | XMS_ITS ---
Author Organization [facility] Address [address] [place] [address] Care Team Providers Care Circus Trainer Name Role Phone Donal BELTRÁN, Jamel Primary Care Provider Unaivan donahue Haji Steven Unavailable [phone] REASON FOR VISIT anemia Encounters Encounter Location Date Provider Diagnosis [facility] [address] [facility] [address] [place] [address] 03/07/2025 Steven Haji Plan Of Treatment Next Appt Details Provider Name:Steven Haji , 03/20/2026 01:00:00 PM, [address], [address], [place], [address], Progress Notes * SUKHDEEP CARTER ADOB: 0 (84 yo F)Acc No.[id number]:03/07/2025 Progress Notes Patient: Pedro SUKHDEEP RODRIGUEZ Provider: Teresita Haji MD :1940 A ge:84 Y S ex:Female Date:03/07/2025 Address:[address] [place] [address] [address], [place], [place] Pcp:Jamel Mansfield MD Subjective: * Chief Complaints: * A nemia * The named appointment provid er may or may not be the originator of this progress note, and it is not deemed complete until electronically signed by the appointment provider. Sign off status: Pending * Provider: Teresita Haji MD Date: 1 Generated for Printi ng/Famonicag/eTransmitting on: 1 07/03/2024 06:11 PM EST
[2025-05-02 16:51] LABS: Anion Gap 16 (12-20); Blood Urea Nitrogen 39 mg/dL (9-16); Calcium 9.8 mg/dL (8.4-10.2); Carbon Dioxide 19 mmol/L (22-29); Chloride 103 mmol/L (96-108); Estimated Glomerular Filt Rate 30; Potassium 4.2 mmol/L (3.3-5.1); Sodium 134 mmol/L (135-145)
--- OUTSIDE RECORDS SUMMARY | 2025-05-02 18:11 | XMS_ITS | Encounter Summary ---
Author Organization [facility] Address [address] [place] [address] Phone Care Team Providers Care Data Scientist Name Role Phone Jamel Mansfield MD Primary Care Provider [phone] [phone] Encounter Details Date Type Department Care Team (Late st Contact Info) Description 09/28/2022 Procedure Pass [facility] [address] [place] [address] Social History Tobacco Use Types Packs/Day Years [...] Description 05/31/2025 1:00 PM EST Office Visit [facility] [address] [facility] 3rd Floor, [address] [place] [address] Darryl Khan MD [address] [place] [address] [email or web address] documented as of this encounter Visit Diagnoses Not on filedocumented in this encounter Care Teams Data Scientist Relationship Specialty Start Date End Date Jamel Mansfield MD [address] [place] [address] [address] PCP - General 03/04/17 documented as of this encounter Additional Source Comments The information contained in this document represents components of the legal health record. It is not the complete legal health record.[facility]
--- OUTSIDE RECORDS SUMMARY | 2025-05-02 18:11 | XMS_ITS | Encounter Summary ---
Author Organization [facility] Address [facility] [address] [place] [address] Phone Care Team Providers Care Casino Cashier Manager Name Role Phone Jamel Mansfield MD Primary Care Provider [phone] [phone] Encounter Details Date Type Department Care Team (Late st Contact Info) Description 02/16/2022 Procedure Pass [facility] [address] [place] [address] Social History Tobacco Use Types Packs/Day Years [...] Description 05/31/2025 1:00 PM EST Office Visit [facility] [address] [place] [address] 3rd Floor, [address] [place] [address] Darryl Khan MD [address] [place] [address] [email or web address] documented as of this encounter Visit Diagnoses Not on filedocumented in this encounter Additional Health Concerns Infection Onset Date Last Indicated Resolved Time CoV-Risk Comment:Per note documentation 09/14/2022 09/14/2022 1:18 PM EDT documented as of this encounter Care Teams Casino Cashier Manager Relationship Specialty Start Date End Date Jamel Mansfield MD [address] [place] [address] [place] [address] PCP - General 03/04/17 documented as of this encounter Additional Source Comments The information contained in this document represents components of the legal health record. It is not the complete legal health record.[facility]
--- OUTSIDE RECORDS SUMMARY | 2025-05-02 18:11 | XMS_ITS | Encounter Summary ---
Author Organization [facility] Address [facility] [address] [place] [address] Phone Care Team Providers Care Feeder Catcher Tobacco Name Role Phone Jamel Mansfield MD Primary Care Provider [phone] [phone] Encounter Details Date Type Department Care Team (Late st Contact Info) Description 07/23/2020 Procedure Pass [facility] [address] [place] [address] Social History Tobacco Use Types Packs/Day Years [...] 1:00 PM EST Office Visit [facility] [address] [facility] 3rd Floor, [address] [place] [address] Darryl Khan MD [address] [place] [address] [email or web address] documented as of this encounter Visit Diagnoses Not on filedocumented in this encounter Additional Health Concerns Infection Onset Date Last Indicated Resolved Time CoV-Risk Comment:Per note documentation 09/14/2022 09/14/2022 1:18 PM EDT documented as of this encounter Care Teams Feeder Catcher Tobacco Relationship Specialty Start Date End Date Jamel Mansfield MD [address] [place] [address] [place] [address] PCP - General 03/04/17 documented as of this encounter Additional Source Comments The information contained in this document represents components of the legal health record. It is not the complete legal health record.[facility]
--- OUTSIDE RECORDS SUMMARY | 2025-05-02 18:11 | XMS_ITS | Patient Health Record ---
Author Organization [facility] Address [address] [place] [address] Care Team Providers Care Drapery Hand Name Role Phone Donal BELTRÁN, [place] Primary Care Provider Carolyn Pineda Unavailable [phone] Allergies Allergen (clinical drug ingredient) Drug/Non Drug [...] Duration) Notes Start Date End Date Status [facility] Active Nabumetone 500 MG 1 tablet Orally [...] Problem Information temporarily unavailable Unspecified atherosclerosis of [place] arteries of extremities, bilateral legs (I70.203) Active [...] Ordered Date Performed Result Body Sit e 95837-BYNYHNJ NAIL, 6 OR MORE 02/07/2025 N/A 79639-SHII SKIN LESIONS, 2 TO 4 02/07/2025 N/A Encounters Encounter Location Date Provider Diagnosis [facility] [address] [address] 02/07/2025 Carolyn Fonseca Type 2 diabetes mellitus with diabetic polyneuropathy E11.42 ; Tinea unguium B35.1 ; Other hammer toe(s) (acquired), right foot M20.41 and Other hammer toe(s) (acquired), left foot M20.[address] [facility] [address] 04/19/2025 Carolyn Fonseca Type 2 diabetes mellitus [...] *Uric Acid, Serum 10/10/2014 *Sedimentation Rate-Westergren 5 10562-ZMBBHMX NAIL, 6 OR MORE 02/07/2025 97126-PKLNZJP NAIL, 1-5 09/13/2014 75494-UFDK SKIN LESIONS, 2 TO 4 02/08/20 25 00692-IPTD SKIN LESIONS, 2 TO 4 07/23/19 21 88044-BRVN SKIN LESIONS, 2 TO 4 10/22/19 21 81947-TIFM SKIN LESIONS, 2 TO 4 01/14/20 21 00461-TJZX SKIN LESIONS, 2 TO 4 04/23/20 21 57229-HVNY SKIN LESIONS, 2 TO 4 08/07/19 22 88841, T9760-RNZZY/INJECT, JOINT/BURSA 0 10/24/2015 92226, J0702- Neuroma/Injection 05/31/19 15 69041, J0702- Neuroma/Injection 10/26/19 15 Next Appt Details Provider Name:Carolyn Sabine motta, 07/18/2025 03:00:00 PM, [address] [facility], [place], [address], Insurance Providers Payer Name Payer Address Payer Phone Subscriber Number Group Number Insured Name Patient Relationship to Insured Coverage Start Date Coverage End Date Medicare National [facility] [address] [place] [address] [id number] Alice Martinez Self - patient is the [facility] [address] [place] [address] [phone] [id number] Martinez Alice Self - patient is [...] legs Guille 12/10/2020 Hospitalization History Reason Date(Month/Year) [facility] vascular sx 08/14/20-08/21/20 [facility]- Bunion surgery left foot 08/16/14
--- OUTSIDE RECORDS SUMMARY | 2025-05-02 18:11 | XMS_ITS | Encounter Summary ---
Author Organization [facility] Address [facility] [address] [place] [address] Phone Care Team Providers Care Imaging Analyst Name Role Phone Jamel Mansfield MD Primary Care Provider [phone] [phone] Encounter Details Date Type Department Care Team (Late st Contact Info) Description 08/13/2022 Procedure Pass [facility] [address] [place] [address] Social History Tobacco Use Types Packs/Day Years [...] Description 05/31/2025 1:00 PM EST Office Visit [facility] [address] [place] [address] 3rd Floor, [address] [place] [address] Darryl Khan MD [address] [place] [address] documented as of this encounter Visit Diagnoses Not on filedocumented in this encounter Additional Health Concerns Infection Onset Date Last Indicated Resolved Time CoV-Risk Comment:Per note documentation 09/14/2022 09/14/2022 1:18 PM EDT documented as of this encounter Care Teams Imaging Analyst Relationship Specialty Start Date End Date Jamel Mansfield MD [address] [facility] [place] [facility] [place] [address] PCP - General 03/04/17 documented as of this encounter Additional Source Comments The information contained in this document represents components of the legal health record. It is not the complete legal health record.[facility]
--- OUTSIDE RECORDS SUMMARY | 2025-05-02 18:11 | XMS_ITS | Encounter Summary ---
Author Organization [facility] Address [facility] [address] [place] [address] Phone Care Team Providers Care Animal Caretaker Name Role Phone Jamel Mansfield MD Primary Care Provider [phone] [phone] Encounter Details Date Type Department Care Team (Late st Contact Info) Description 04/24/2020 Procedure Pass [facility] [address] [place] [address] Social History Tobacco Use Types Packs/Day Years [...] 1:00 PM EST Office Visit [facility] [address] [place] [address] 3rd Floor, [address] [place] [address] Darryl Khan MD [address] [place] [address] [email or web address] documented as of this encounter Visit Diagnoses Not on filedocumented in this encounter Additional Health Concerns Infection Onset Date Last Indicated Resolved Time CoV-Exposed Comment:Close contact 04/30/2020 05/05/2020 05/14/2020 1:25 AM EST CoV-Risk Comment:Per note documentation 09/14/2022 09/14/2022 3 1:18 PM EDT documented as of this encounter Care Teams Animal Caretaker Relationship Specialty Start Date End Date Jamel Mansfield MD [address] [place] [address] [place] [address] PCP - General 03/04/17 documented as of this encounter Additional Source Comments The information contained in this document represents components of the legal health record. It is not the complete legal health record.[facility]
--- OUTSIDE RECORDS SUMMARY | 2025-05-02 18:11 | XMS_ITS | Encounter Summary ---
Author Organization [facility] Address [facility] [address] [place] [address] Phone Care Team Providers Care Research Scientist Name Role Phone Jamel Mansfield MD Primary Care Provider [phone] [phone] Encounter Details Date Type Department Care Team (Late st Contact Info) Description 09/25/2022 Procedure Pass [facility], Ct Scan - [address] [address] Social History Tobacco Use Types Packs/Day Years [...] 05/31/2025 1:00 PM EST Office Visit [facility] 3[address], [address] [place] [address] Darryl Khan MD [address] [place] [address] [email or web address] documented as of this encounter Visit Diagnoses Not on filedocumented in this encounter Care Teams Research Scientist Relationship Specialty Start Date End Date Jamel Mansfield MD [address] [place] [address] [address] PCP - General 03/04/17 documented as of this encounter Additional Source Comments The information contained in this document represents components of the legal health record. It is not the complete legal health record.[facility]
--- OUTSIDE RECORDS SUMMARY | 2025-05-02 18:11 | XMS_ITS | Encounter Summary ---
Author Organization [facility] Address [address] [place] [address] Phone Care Team Providers Care Food Production Machine Operator Name Role Phone Jamel Mansfield MD Primary Care Provider [phone] [phone] Encounter Details Date Type Department Care Team (Late st Contact Info) Description 04/24/2025 Orders Only [facility] 3[address], [address] [place] [address] Ashley Hernandez, PATHOLOGY LABORATORY DIRECTOR [address] [place] [address] [email or web address] Social History Tobacco Use Types Packs/Day Years [...] 05/31/2025 1:00 PM EST Office Visit [facility] [address] [facility] 3rd Floor, [address] [place] [address] Darryl Khan MD [address] [place] [address] [email or web address] documented as of this encounter Visit Diagnoses Not on filedocumented in this encounter Care Teams Food Production Machine Operator Relationship Specialty Start Date End Date Jamel Mansfield MD [address] [place] [address] [address] PCP - General 03/04/17 documented as of this encounter Additional Source Comments The information contained in this document represents components of the legal health record. It is not the complete legal health record.[facility]
--- OUTSIDE RECORDS SUMMARY | 2025-05-02 18:11 | XMS_ITS | Encounter Summary ---
Author Organization [facility] Address [address] [place] [address] Phone Care Team Providers Care Audio/Visual Operator Name Role Phone Jamel Mansfield MD Primary Care Provider [phone] [phone] Encounter Details Date Type Department Care Team (Late st Contact Info) Description 05/01/2025 Telephone [facility] [address] 3rd Floor, [address] [place] [address] Wiliam Briggs [email or web address] Social History Tobacco Use Types [...] as of this encounter Progress Notes * Wiliam Briggs - 05/01/2025 8:21 AM EST Pt has a cardiac CT scheduled at [facility] and she needs labs ordered [facility] what [facility] she needs. documented in this encounter Plan of Treatment Upcoming Encounters Date Type Department Care Team (Late st Contact Info) Description 05/31/2025 1:00 PM EST Office Visit [facility] [address] [place] [address] 3rd Floor, [address] [place] [address] Darryl Khan MD [address] [place] [address] [email or web address] Scheduled Orders Name Type Priority Associated Diagnoses Orde r Schedule Basic Metabolic Panel (BMP) Lab Routine Nonrheumatic mitral valve stenosis Expected: 05/01/2025, Expires: 05/01/2026 documented as of this encounter Visit Diagnoses Diagnosis Nonrheumatic mitral valve stenosis- Primary documented in this encounter Care Teams Audio/Visual Operator Relationship Specialty Start Date End Date Jamel Mansfeild MD [address] [place] [address] Dr Brito [address] [place] [address] PCP - General 03/04/17 documented as of this encounter Additional Source Comments The information contained in this document represents components of the legal health record. It is not the complete legal health record.[facility]
--- OUTSIDE RECORDS SUMMARY | 2025-05-02 18:11 | XMS_ITS | Encounter Summary ---
Author Organization [facility] Address [facility] [address] [place] [address] Phone Care Team Providers Care Solar Installation Technician Name Role Phone Jamel Mansfield MD Primary Care Provider [phone] [phone] Encounter Details Date Type Department Care Team (Late st Contact Info) Description 02/16/2024 Procedure Pass [facility] [address] [place] [address] Social History Tobacco Use Types Packs/Day Years [...] Description 05/31/2025 1:00 PM EST Office Visit [facility] [address] [place] [address] 3rd Floor, [address] [place] [address] Darryl Khan MD [address] [place] [address] [email or web address] documented as of this encounter Visit Diagnoses Not on filedocumented in this encounter Care Teams Solar Installation Technician Relationship Specialty Start Date End Date Jamel Mansfield MD [address] [place] [address] [address] PCP - General 03/04/17 documented as of this encounter Additional Source Comments The information contained in this document represents components of the legal health record. It is not the complete legal health record.[facility]
--- OUTSIDE RECORDS SUMMARY | 2025-05-02 18:11 | XMS_ITS | Clinical Summary ---
Author Organization [facility] Address [address] [place] [address] Drive [address] [place] [address] Phone Care Team Providers Care Lime Burner Name Role Phone Jamel Mansfield MD Primary Care Provider [phone] [phone] Allergies Active Allergy Reactions Criticality Noted Date Comments Iodinated Contrast Media Hives 09/04/2017 Penicillins Hives 09/04/2017 Medications lansoprazole (PREVACID) 30 MG capsule Take 1 capsule by mouth daily. Active traZODone (DESYREL) 50 MG tablet Orally Once a day Active montelukast (SINGULAIR) 10 mg tablet Take 1 tablet by mouth every evening. Active ferrous sulfate 325 mg (65 mg [place] iron) tablet Take 325 mg by mouth [...] daily. Active cyanocobalamin (VITAMIN B-12) 500 mcg/spray Long 500 mcg by Right Nare route. Active [...] a surgical candidate for valve repair through [facility]. She declined obtaining a second opinion, she is not interested in undergoing open heart surgery at her age. We did discuss potential for TAVR versus enrollment in [place] trial with possible TMVR. The exact inclusion [...] torsemide 10 mg fdaily -Patient was at [facility] at the end of July with [...] to obtain a lipid panel from the [facility] system. Goal LDL is less than [...] of claudication. I recommended she follow-up with [facility] vascular who has been managing this [...] prior to his 6-month follow-up with Dr. HANANH. Assessment & Plan (04/24/2020 4:09 PM EST): [...] frequently at her PCP office in the [facility] system. I have discussed with her that given her extensive peripheral arterial disease, she should have an LDL of less than 70. We will try to obtain a lipid panel from [facility]. She is on 40 mg of [...] Encounters Date Type Department Care Team Description 05/01/2025 Telephone [facility] [address], [address] [place] [address] Wiliam Briggs 04/24/2025 Orders Only [facility] [address], [address] [place] [address] Ashley Hernandez CNP 04/24/2025 Telephone [facility] [address], [address] [place] [address] Ashley Hernandez, [place] 02/22/2025 Refill [facility] [address], [address] [place] [address] Vanesa García PA-C Medication Refill 02/16/2025 3:20 PM EDT Office Visit [facility] [address], [address] [place] [address] Darryl Khan MD Nonrheumatic mitral valve stenosis [...] Description 05/31/2025 1:00 PM EST Office Visit [facility] [address] [facility] 3rd Floor, [address] [place] [address] Darryl Khan MD [address] [place] [address] [email or web address] Health Maintenance Due Date Last Done [...] 02/09/2018, Additional history exists COVID-19 VACCINE ( - season) 2025 10/06/2021, 03/14/2021, 07/12/2020, Additional history [...] EST) SODIUM 139 133 - 146 mmol/L [facility] CHLORIDE 105 96 - 108 mmol/L [facility] POTASSIUM 4.0 3.3 - 5.1 mmol/L [facility] CO2 22 21 - 35 mmol/L [facility] BUN 33(H) 6 - 19 mg/dL [facility] CREATININE 1.60(H) 0.5 - 1.5 mg/dL [facility] GLUCOSE 189(H) 70 - 99 mg/dL [facility] CALCIUM 9.6 8.4 - 10.3 mg/dL [facility] EGFR 32(L) >59 mL/min/1.7 3m2 [facility] Comment:Estimated glomerular filtration rate calculated using the CKD-EPI refit equation. ANION GAP 16 10 - 20 mmol/L [facility] Blood 06/21/2024 1:18 PM EST 06/21/2024 1:20 PM EST us Gaudencio Whitfield MD LAB BLOOD BKR ORDERABLES Final R esult [facility] [address] [place] [address] * (ABNORMAL) Hemoglobin A1c (09/15/2022 5:46 AM EDT) HEMOGLOBIN A1C 6.1(H) 4.3 - 5.8 % [facility] Blood 09/15/2022 5:46 AM EDT 09/15/2022 6:11 AM EDT us Kayla Alfred DO LAB BLOOD BKR ORDERABLES Ofelia l Result [facility] [address] [place] [address] from Last 3 Months or Most Recently Relevant to Health Maintenance Insurance [place] PART [place] [id number] [facility] MEDICARE SUPPLEMENT [address] [place] [id number] MEDICARE PART A & B MEDICARE SUPPLEMENT [address] [place] [id number] MEDICARE PART A & B MEDICARE SUPPLEMENT MEDICARE PART A & B MEDICARE SUPPLEMENT MEDICARE PART A & B MEDICARE SUPPLEMENT MEDICARE PART A & B MEDICARE SUPPLEMENT MEDICARE PART A & B MEDICARE SUPPLEMENT MEDICARE PART A & B [facility] MEDICARE SUPPLEMENT MEDICARE PART A & B [facility] MEDICARE SUPPLEMENT Advance Directives For more information, please contact: [phone] (9AM - 5PM [facility], Wednesday-Wednesday) Documents on File Type Date Recorded 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 It is not the complete legal health record.[facility]
--- OUTSIDE RECORDS SUMMARY | 2025-05-02 18:11 | XMS_ITS | Patient Health Record ---
Author Organization [facility] Address [address] [place] [phone] Care Team Providers Care Roller Inspector And Mender Name Role Phone Jamel Mansfield MD Primary Care Provider Steven Irving [phone] Allergies Allergen (clinical drug ingredient) Drug/Non Drug Allergy documented on EMR Reaction Allergy Type Onset Date Status contrast dye (uncoded) Unknown Allergy Active Penicillin Unknown Drug Allergy Active Results Component Value Reference Range Notes CT abdomen pelvis wo con Reviewed date:03/20/2025 01:41:13 PM Interpretation: Performing Lab: Notes/Report: [facility] [address] [place] [address] Scan Report Signed Patient: Alice Carter MR#: [id number] [birth year] : 1940 Acct:[id number] Age/Sex: 83 / F ADM Date: 06/02/24 Loc: HO.CT Attending Dr: Steven Haji MD Ordering Physician: Steven Haji MD Date of Service: 06/02/24 Procedure(s): CT abdomen pelvis wo IV con Accession Number(s): [id number] cc: Jamel Mansfield MD; Steven Haji MD Report Number: [id number]: Total DLP = 756.00 mGy-cm EXAMINATION: CT [...] by: Steven Casey MD 06/05/2024 08:42 AM [facility] Dictated By: Steven Casey MD Signed By: <Electronically signed by Steven Casey MD in OV> 06/05/24 0842 DD/ 1530 TD/TT: 06/02/24 1738 Rail 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: Reason For Referral No Information Medications Medication [...] Status W/U Status Risk Notes Problem Constipation (02954267) Constipation (K59.00) Active confirmed Problem Diarrhea (82486819) Diarrhea, unspecified (R19.7) Active confirmed Problem Gastroesophageal reflux disease (838421632) Gastroesophageal reflux disease, esophagitis presence not specified (K21.9) Active confirmed Problem Abnormal feces (435865148) Heme + stool (R19.5) Active confirmed Problem Anemia (235213456) Anemia (D64.9) Active confir med Problem Iron deficiency anemia due to chronic blood loss (260244219) Iron deficiency anemia due to chronic blood loss (D50.0) Active confirmed Problem Microcytic anemia (682684452) Microcytic anemia (D50.9) Active confirmed Problem Angiodysplasia of colon (52469065) Angiodysplasia of colon (K55.20) Active confirmed Problem Iron deficiency anemia (09326065) Iron deficiency anemia, unspecified iron deficiency anemia type (D50.9) Active confirmed Problem Diarrhea (83999445) Diarrhea, unspecified type (R19.7) Active confirmed Problem Chronic diarrhea (338620265) Chronic diarrhea (K52.9) Active confirmed Problem Irritable bowel syndrome (17239509) 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 [place] [phone] 03/20/2025 Steven Haji Constipation K59.00 ; Iron [...] Provider Name:Steven Haji , 03/20/2026 01:00:00 PM, [address] [place] [address], [address], [place], [address], Insurance Providers Payer Name Payer Address Payer Phone Subscriber Number Group Number Insured Name Patient Relationship to Insured Coverage Start Date Coverage End Date MEDICARE OF [place] [address] [place] [address] [id number] ALICE CARTER Self - patient is the insured [facility] [address] [place] [phone] [id number] ALICE CARTER Self - patient is the insured Medical (General) History Medical History History ICD Code 10/25/2009 Colonoscopy- neg except for h yperplastic polyps- no IBD Tubular adenomas removed in 2002 GERD-EGD in 1997- HH, but ot herwise negative; EGD 05/2014 small HH, no esophagitis, small area of Aguilera's- no dysplasia Depression Hyperlipidemia NIDDM COPD Hypertension Denies NV or CVA Microcytic anemia in 2015- h [...] stenosis. She is being followed by a excelsior machine feeder Hospitalized 01/2022 for recu rrent anemia- Hgb [...] as described by the patient-Dr. Siddiqi at [facility] 08/14/2020 and 11/2020 Hospitalization History Reason Date(Month/Year) Hospitalized for 2 weeks due to pneumonia, CHF, and Afib, and then rehab for 2 weeks. Spring 2022
--- OUTSIDE RECORDS SUMMARY | 2025-05-02 18:11 | XMS_ITS | Encounter Summary ---
Author Organization [facility] Address [address] [place] [address] Phone Care Team Providers Care Nursing Scheduler Name Role Phone Jamel Mansfield MD Primary Care Provider [phone] [phone] Reason for Referral * MRI/CAT Scan - Closed Specialty Diagnoses / Procedures Referred By Contac t Referred To Contact Radiology Diagnoses Peripheral vascular disease, unspecified Procedures CT Angio Abdominal Aorta and Bilateral Lower Extremity Runoff Ofelia Villasenor MD [address] [address] Phone: tel: fax: Referral ID Status Reason Start Date Expiration Date Visits Re quested Visits Authorized [id number] Closed 05/09/2019 05/08/2020 1 1 Encounter Details Date Type Department Care Team (Latest Contact Info) Description 05/09/2019 Transcribe Orders Virtual Department [address] [place] [address] Ofelia Villasenor MD [address] [address] Peripheral vascular disease, unspecified (Primary Dx) Social [...] 05/31/2025 1:00 PM EST Office Visit [facility] [address] [facility] [address], [address] [place] [address] Darryl Khan MD [address] [place] [address] [email or web address] documented as of this encounter Results * [...] identified. TOTAL CTDIvol: 22.00 mGy POS - [id number] Narrative 05/30/2019 7:22 PM EST COMPARISON: None [...] stenosisidentified. TOTAL CTDIvol: 22.00 mGy POS - [id number] us Ofelia Villasenor MD IMG CT ABD/PELVIS [...] documented as of this encounter Care Teams Nursing Scheduler Relationship Specialty Start Date End Date Jamel Mansfield MD [address] [place] [address] Dr Pineda, [place] [address] PCP - General 03/04/17 documented as of this encounter Additional Source Comments The information contained in this document represents components of the legal health record. It is not the complete legal health record.[facility]
--- OUTSIDE RECORDS SUMMARY | 2025-05-02 18:11 | XMS_ITS | Encounter Summary ---
Author Organization [facility] Address [facility] [address] [place] [address] Phone Care Team Providers Care Lombardi Developer Name Role Phone Jamel Mansfield MD Primary Care Provider [phone] [phone] Encounter Details Date Type Department Care Team (Late st Contact Info) Description 07/16/2021 Procedure Pass [facility] [address] [place] [address] Social History Tobacco Use Types Packs/Day Years [...] 1:00 PM EST Office Visit [facility] [address] [facility] 3rd Floor, [address] [place] [address] Darryl Khan MD [address] [place] [address] [email or web address] documented as of this encounter Visit Diagnoses Not on filedocumented in this encounter Additional Health Concerns Infection Onset Date Last Indicated Resolved Time CoV-Risk Comment:Per note documentation 09/14/2022 09/14/2022 1:18 PM EDT documented as of this encounter Care Teams Lombardi Developer Relationship Specialty Start Date End Date Jamel Mansfield MD [address] [place] [address] [place] [address] PCP - General 03/04/17 documented as of this encounter Additional Source Comments The information contained in this document represents components of the legal health record. It is not the complete legal health record.[facility]
== END 2025-05-02 13:39 | disposition home or self-care (01) ==
LOC: HO.HMGCLDS 13:38
PROVIDERS: PCP Internal Medicine; Visit Provider Internal Medicine
DX: I34.2 Nonrheumatic mitral (valve) stenosis (principal)
CPT/HCPCS: 36415; 80048

== ENCOUNTER 2025-05-04 13:36 | Outpatient (AMB) | payer MEDICARE, OTHER, SELFPAY ==
--- OUTSIDE RECORDS SUMMARY | 2025-03-07 08:00 | XMS_ITS ---
Author Organization [facility] Address [address] [place] [address] Care Team Providers Care Heavy Cleaner Name Role Phone Donal BELTRÁN, Jamel Primary Care Provider Unaivan donahue Haji Steven Unavailable [phone] REASON FOR VISIT anemia Encounters Encounter Location Date Provider Diagnosis [facility] [address] [facility] [address] [place] [address] 03/07/2025 Steven Haji Plan Of Treatment Next Appt Details Provider Name:Steven Haji , 03/20/2026 01:00:00 PM, [address], [address], [place], [address], Progress Notes * SUKHDEEP CARTER ADOB: 0 (84 yo F)Acc No.[id number]:03/07/2025 Progress Notes Patient: Pedro SUKHDEEP RODRIGUEZ Provider: Teresita Haji MD :1940 A ge:84 Y S ex:Female Date:03/07/2025 Address:[address] [place] [address] [address], [place], [place] Pcp:Jamel Mansfield MD Subjective: * Chief Complaints: * A nemia * The named appointment provid er may or may not be the originator of this progress note, and it is not deemed complete until electronically signed by the appointment provider. Sign off status: Pending * Provider: Teresita Haji MD Date: 1 Generated for Printi ng/Famonicag/eTransmitting on: 1 07/05/2024 03:17 PM EST
[2025-05-04 13:41] VITALS: BP 116/68; PULSE 57; RESP 18; O2SAT 93; BMI 33.1
--- NOTE | 2025-05-04 13:41 | A.OFFPC_ITS ---
Vital Signs 05/04/25 13:41 Height 5 ft 2 in Weight 181 lb BMI 33.1 BP 116/68 Blood Pressure Location Lt brachial Position Sitting Respiration 18 Pulse 57 Pulse Source Pulse Oximeter Temp Source Temporal Artery Scan Pulse Oximetry (%) 93 Oxygen Delivery Method Room Air Intake Visit Reasons: 3 month f/u Bag Grader Required: No Accompanied by: Self / Same As Patient Allergies Iodinated Contrast Media (IV DYE, IODINE CONTAINING CONTRAST ) Allergy (Severe, Verified 05/04/25 14:14) HIVE Penicillins (PENICILLINS) Allergy (Severe, Verified 05/04/25 14:14) HIVES Medication List - Last Reconciled 05/04/25 by Jamel Mansfield MD albuterol sulfate 90 mcg/actuation (Ventolin HFA) 2 puffs inhalation Q4-6H PRN allopurinol 100 mg PO DAILY 90 days atorvastatin (Lipitor) 80 mg PO DAILY cholecalciferol (vitamin D3) 50 mcg PO DAILY 90 days citalopram 20 mg PO DAILY dapagliflozin propanediol (Farxiga) 5 mg PO QAM diltiazem HCl ER 240 mg PO DAILY diphenoxylate-atropine 2.5-0.025 mg tabs PO PRN ferrous sulfate (Feosol) 325 mg PO BID fluticasone furoate-vilanterol 200-25 mcg/dose 1 ea inhalation DAILY Incruse Ellipta 62.5 mcg/actuation (umeclidinium) 1 inh inhalation DAILY 30 days NS Januvia (sitagliptin phosphate) 100 mg PO DAILY 30 days NS lansoprazole (Prevacid) 30 mg PO DAILY@0630 mecobalamin (vitamin B12) 5,000 mcg PO DAILY melatonin 10 mg PO BEDTIME PRN metoprolol succinate ER 75 mg PO DAILY mirtazapine 15 mg PO BEDTIME montelukast 10 mg PO DAILY nitrofurantoin monohyd/m-cryst 100 mg (Macrobid) 100 mg PO BID 7 days nystatin 1 appl topical TID 10 days potassium chloride ER 50 mEq PO DAILY prothrombin time/INR test metr (Coaguchek XS Pro) As directed prothrombin time/INR test metr (Coaguchek XS Pro) As directed spironolactone 25 mg PO DAILY torsemide 20 mg PO .QOD trazodone 50 mg PO BEDTIME warfarin Take 1 tablet daily or as instructed orally; Tobacco use date assessed: 05/04/25 Fall risk assessment: No Falls in past year Last assessed Fall Risk: 05/04/25 Dental Screening Dental Screen Date: 05/04/25 Did you have a dental visit in the last 12 months?: Yes Did you have a dental problem in the last 6 months where you did not have access to dental care?: No Was dental information given to patient?: Patient has dentist HPI 3 month f/u HPI Details Patient comes in today for her follow up visit States that she feels okay She is currently still finishing up the antibiotics (Macrodantin) that she was started on at the walk-in clinic for UTI last week She denies any headaches or dizziness Denies any chest pains, no increased SOB No nausea/vomiting, no abdominal pain No change in bowel habits noted She had her follow up labs done last week - to discuss her results [facility] Medical History Pneumonia Chronic diastolic heart failure CHF (congestive heart failure) Thrush, oral GI bleed Occult blood positive stool Microcytic anemia Valvular heart disease Exertional dyspnea Hemorrhagic cystitis Osteopenia Toxic multinodular goiter Obesity (BMI 30-39.9) Hearing impairment Peripheral vascular disease Obesity (BMI 30-39.9) Depression Anxiety Osteoarthritis of ankle and foot Vitamin D deficiency Allergic rhinitis Anemia GERD without esophagitis Gout Hypomagnesemia Multiple thyroid nodules Pure hypercholesterolemia Benign essential hypertension PSVT (paroxysmal supraventricular tachycardia) PAC (premature atrial contraction) COPD (chronic obstructive pulmonary disease) Chronic kidney disease (CKD), stage III (moderate) Type 2 diabetes mellitus with diabetic chronic kidney disease Sciatica of right side Surgical History History of colonoscopy History of angioplasty of peripheral vessel (~08/13/20) History of biopsy History of neck surgery History of cataract surgery History of bladder surgery History of tonsillectomy and adenoidectomy History of appendectomy History of hysterectomy Family History Father Stroke CVD (cardiovascular disease) Mother CVD (cardiovascular disease) Hypertension CAD (coronary artery disease) Other Mental health disorder Social History Household Members: None Housing: Condominium Do you presently have visiting nurse or other home services: Yes (exhibit specialist once per week- [facility]) Alcohol intake: current Alcohol intake frequency: holidays/special occasions only Alcohol type: beer and hard liquor Patient Tobacco Use Status: Former Tobacco user Tobacco use type: Cigarette Cigarette Packs Per Day: 2 Cigarettes Per Day: 40.0 Years Smoked: 40 e-Cigarette/Vaping Use: Never Used Second Hand Smoke Exposure: Yes service: No Current occupational status: retired Cognitive needs: Yes (cane) Hearing needs: Yes Vision needs: Yes Questionnaire Thrive Questionnaire Date Thrive assessed: 05/04/25 I am a: Patient What is your living situation today?: I have a steady place to live Within the past 12 months, did the food you bought not last and you didn't have the money to get more?: Never true Within the past 12 months, did you worry whether your food would run out before you got money to buy more?: Never true Do you have trouble paying for medicines?: No Do you have trouble getting transportation to medical appointments?: No Do you have trouble paying your heating and electricity bill?: No Do you have trouble taking care of your child, family member or friend?: No Do you have trouble with day-to-day activities such as bathing, preparing meals, shopping, managing finances, etc.?: Yes Are you currently unemployed and looking for a job?: No Are you interested in more education?: No Currently or been in a relationship where the following occur: No concerns reported THRIVE Score: 0 ABEL-7 AMB Questionnaire ABEL-7 Date ABEL - 7 assessed: 09/27/24 Source: Developed by Drs. Steven Hebert, Ursula Watson, Jared Joshi and colleagues, with an educational fredrick from [employer]. Review of Systems Const Denies chills, Reports fatigue, Denies fever(s) and Denies headache(s) ENT Denies dysphagia, Denies dizziness, Denies otalgia, Denies headache(s), Denies neck pain, Denies odynophagia and Denies sore throat Card Denies chest pain, Reports claudication, Denies palpitations and Reports dyspnea on exertion (mild) Resp Denies chest congestion, Denies cough and Reports dyspnea on exertion (mild) GI Denies abdominal pain, Denies hematochezia, Reports constipation, Denies dysphagia, Denies heartburn, Denies diarrhea, Reports loose stools (occasionally), Denies nausea, Denies odynophagia and Denies vomiting Denies difficulty voiding, Denies nocturia, Denies dysuria and Denies urinary urgency Musc Reports back pain (on and off; better now than a couple of months ago), Reports arthralgias (right hip, on and off; increased in R shoulder) and Denies neck pain Skin/Breast Denies rash Neuro Denies dizziness and Denies headache(s) Endo Reports fatigue and Denies palpitations Sean/Lymph Details: (+) recurrent pain/claudication over her left lower extremity Physical exam (Primary Care) Vital Signs: Last Vital Signs Pulse 57 05/04/25 13:41 Resp 18 05/04/25 13:41 BP 116/68 05/04/25 13:41 Pulse Ox 93 05/04/25 13:41 Oxygen Delivery Method Room Air 05/04/25 13:41 BMI result Body Mass Index 33.1 Tobacco/Smoking Status: Tobacco use Status Tobacco use date assessed 05/04/25 05/04/25 13:49 Patient Tobacco Use Status Former Tobacco user 05/04/25 13:49 Tobacco use type Cigarette 05/04/25 13:49 e-Cigarette/Vaping Use Never Used 05/04/25 13:49 Thrive Assessment: Date of Thrive Assessment Date Thrive assessed 05/04/25 05/04/25 13:49 Currently or been in a relationship where the following occur: No concerns reported Const General: no acute distress and alert HENMT Ears: TM's normal bilaterally and EAC's normal Throat: Yes posterior oropharynx normal and Yes tonsils normal (no TP congestion noted) Neck Neck: Yes supple and No lymphadenopathy Thyroid: Thyroid normal Resp Auscultation: clear to auscultation bilaterally, no rales and no wheezes Cardio Rate: bradycardic Rhythm: regular rhythm Heart sounds: Murmur heart sound present diastolic blowing and at the apex and systolic III/ and at the base GI Palpation (GI): Soft to palpation and nontender Auscultation: normal bowel sounds General: Yes no CVA tenderness Back/Spine/Pelvis Back: no CVA tenderness Thoracic/Lumbar Spine: lumbar spinal tenderness (mild) Skin Rashes: no rashes Extrem General: Yes no clubbing, cyanosis or edema Right upper extremity: shoulder/upper arm (mild) Details: tenderness Location: of the A-C joint (and behind the right shoulder ) Results Reviewed Results Reviewed: Laboratory Tests 04/25/25 04/25/25 05/02/25 11:24 11:30 13:45 WBC 8.2 Hgb 14.3 Hct 44.0 Plt Count 315 Sodium 134 L Potassium 4.2 Creatinine 1.65 H Estimated GFR 30 Fasting Glucose 162 H Hemoglobin A1c % 7.5 H Uric Acid 8.2 H Calcium 9.8 Ferritin 112 AST 19 ALT 18 Triglycerides 152 H Cholesterol 159 LDL Cholesterol, Calc 101 H HDL Cholesterol 28 L Vitamin B12 > 2000 H 25-OH Vitamin D Total 40.0 TSH 0.17 L Free T4 1.16 Ur Specific [place] 1.015 Urine Protein Negative Urine Glucose (UA) 500 H Urine Blood Negative Urine Nitrite Negative Ur Leukocyte Esterase Small (1+) H Microalb/Creat Ratio 29.1 H Coding Level of Care Code Est Pt Level 4 (86505) Diagnoses Pure hypercholesterolemia E78.00 Type 2 diabetes mellitus with stage 3b chronic kidney disease, without long-term current use of insulin E11.22; N18.32 Chronic kidney disease stage: stage 3 (moderate) Chronic kidney disease stage 3 subtype: stage 3b (GFR 30-44) Diabetes mellitus long term care social worker insulin use: without long term care social worker use Stage 3a chronic kidney disease N18.31 Chronic kidney disease stage 3 subtype: stage 3a (GFR 45-59) Chronic diastolic heart failure I50.32 Valvular heart disease I38 Benign essential hypertension I10 Chronic obstructive pulmonary disease, unspecified COPD type J44.9 COPD type: unspecified COPD PSVT (paroxysmal supraventricular tachycardia) I47.1 PAC (premature atrial contraction) I49.1 Peripheral vascular disease I73.9 Toxic multinodular goiter E05.20 Anemia, unspecified type D64.9 Anemia type: unspecified type Gout, unspecified cause, unspecified chronicity, unspecified site M10.9 Chronicity: unspecified Gout etiology: unspecified cause Gout site: unspecified site Hypomagnesemia E83.42 GERD without esophagitis K21.9 Vitamin D deficiency E55.9 Chronic right-sided low back pain with right-sided sciatica M54.41; G89.29 Back pain laterality: right Right shoulder pain, unspecified chronicity M25.511 Chronicity: unspecified Right elbow pain M25.521 Anxiety F41.9 Episode of recurrent major depressive disorder, unspecified depression episode severity F33.9 Active/Remission status: currently active Depression Type: major depressive disorder Major depression episode severity: unspecified Major depression recurrence: recurrent Obesity (BMI 30-39.9) E66.9 Assessment & Plan Assessment & Plan (1) Pure hypercholesterolemia: Code(s): E78.00 - Pure hypercholesterolemia, unspecified Category: Medical Plan: Results of her labs done last week reviewed and discussed with patient Reinforced low cholesterol diet Continue Atorvastatin 40 mg QD Will recheck her labs and fasting lipids in 3 months for follow up (2) Type 2 diabetes mellitus with diabetic chronic kidney disease: Code(s): E11.22 - Type 2 diabetes mellitus with diabetic chronic kidney disease Category: Medical Qualifiers: Chronic kidney disease stage: stage 3 (moderate) Chronic kidney disease stage 3 subtype: stage 3b (GFR 30-44) Diabetes mellitus long term care social worker insulin use: without snf use Qualified Code(s): E11.22 - Type 2 diabetes mellitus with diabetic chronic kidney disease; N18.32 - Chronic kidney disease, stage 3b Plan: Her HgbA1c has increased to 7.5% on her labs done last week (was previously at 6.9% a few months ago and at 6.7% and 6.2% earlier this year) - goal is at least <7.0% Have cautioned patient that her HgbA1c has been slowly but consistently climbing up over the past year Reinforced diabetic diet Continue Januvia 100 mg QD and Farxiga 5 mg Q AM for now but advised but we may need to add another Rx if her HgbA1c continues to go up further She was taken off Glimepiride 1 mg QD last year due to recurrent symptomatic low blood sugar readings while on the Rx She could not tolerate Metformin / Metformin ER in the past due to diarrhea Will recheck her labs and HgbA1c in 3 months for follow up (3) Chronic kidney disease (CKD), stage III (moderate): Code(s): N18.30 - Chronic kidney disease, stage 3 unspecified Category: Medical Qualifiers: Chronic kidney disease stage 3 subtype: stage 3a (GFR 45-59) Qualified Code(s): N18.31 - Chronic kidney disease, stage 3a Plan: Stable but have cautioned patient that her GFR/renal function has been slowly and steadily declining over the past year and with the slight drop in her recent GFR (28), she is now categorically in stage 4 CKD at this time Abdominal CT done in May 2024 that revealed a markedly atrophic right kidney so she technically likely has only 1 functioning kidney at this time She was taken off Valsartan when she reportedly developed some MARBELLA while admitted to the hospital last year She was also started on Farxiga a few months ago and her Metoprolol ER and Torsemide dosage were also lowered by cardiology recently - have advised patient that all these likely contributed to the subsequent improvement in her renal fu nction Will continue to monitor her GFR and serum creatinine closely (4) Chronic diastolic heart failure: Comment: SHE IS BEING FOLLOWED BY CARDIOLOGY REGULARLY, AND BEING TREATED FOR CHRONIC DIASTOLIC CONGESTIVE HEART FAILURE. HER CARDIAC STATUS IS ALSO REMAINING STABLE IN THE LAST 6 MONTHS. Code(s): I50.32 - Chronic diastolic (congestive) heart failure Category: Medical Plan: Continue Torsemide 20 mg QOD and Spironolactone 25 mg QD Reinforced fluid restriction although she has to balance this with not drinking enough, which can impact her renal function Follow up with cardiology as scheduled (5) Valvular heart disease: Code(s): I38 - Endocarditis, valve unspecified Category: Medical Plan: Previous echocardiogram done on 01/14/2021 revealed (+) normal LV size and function, with hyperdynamic EF of >70%; left atrium is severely dilated, with moderate AR and moderate as well as moderate MR and severe MS and mild pulmonary hypertension - these changes appear to be worse compared to previous findings Repeat echocardiogram done on 07/17/2021 revealed findings that are mostly unchanged from 2020 but the gradient across the mitral valve is slightly less and PA pressures have improved and the gradient across the aortic valve is also slightly improved She reportedly had a normal cardiac cath done at [facility] back in August 2022 She has also been advised that she will be potentially requiring valve replacement or repair of her mitral and aortic valve - patient does not feel she is ready for either yet at this time Follow up with cardiology as scheduled - she used to see Dr. Ajay Hannah but is now seeing Dr. Nance up at [facility] (6) Benign essential hypertension: Code(s): I10 - Essential (primary) hypertension Category: Medical Plan: Reinforced low-sodium diet - goal is systolic BP of at least 140 to 150 mm or less Continue Metoprolol ER 75 mg QD Her Valsartan 160 mg QD was discontinued while she was in the hospital last year due to MARBELLA (7) COPD (chronic obstructive pulmonary disease): Comment: SHE HAS MODERATELY SEVERE ASTHMA/COPD. WITH THE CURRENT COMBINATION SHE IS FEELING BETTER. SHE HAS NOT REQUIRED TO USE RESCUE INHALER. Code(s): J44.9 - Chronic obstructive pulmonary disease, unspecified Category: Medical Qualifiers: COPD type: unspecified COPD Qualified Code(s): J44.9 - Chronic obstructive pulmonary disease, unspecified Plan: Controlled Continue Breo Ellipta 200-25 mcg 1 inhalation QD, Incruse Ellipta 62.5 mcg 1 inhalation QD and Albuterol HFA 108 mcg 2 puffs 4 times a day as needed Follow up with pulmonary as scheduled - she sees Dr. Cardona here at [facility] (8) PSVT (paroxysmal supraventricular tachycardia): Code(s): I47.1 - Supraventricular tachycardia Category: Medical Plan: She is currently controlled on Diltiazem ER 240 mg QD with no recurrence of her SVT for a while now Follow-up with cardiology as scheduled (9) PAC (premature atrial contraction): Code(s): I49.1 - Atrial premature depolarization Category: Medical Plan: This has been controlled adequately on Diltiazem so far - continue Diltiazem ER 240 mg QD Follow-up with cardiology as scheduled (10) Peripheral vascular disease: Comment: S/P angioplasty of left lower extremity in July 2020 Code(s): I73.9 - Peripheral vascular disease, unspecified Category: Medical Plan: S/P angioplasty although patient did not feel that her surgery helped a lot She was prevously on dual antiplatelet therapy with low dose Aspirin 81 mg QD and Clopidogrel 75 mg QD previously but is now just on Clopidogrel (Aspirin was discontinued due to GI bleed and profound anemia) Follow up with vascular surgery as scheduled (11) Toxic multinodular goiter: Code(s): E05.20 - Thyrotoxicosis with toxic multinodular goiter without thyrotoxic crisis or storm Category: Medical Plan: Her TFTs were again normal on her recent labs Follow-up with endocrinology as scheduled - FNA Bx done on 06/17/2017 came out benign Ultrasound done a couple of years ago came back unchanged and recommendation is to just continue with yearly ultrasound for continuing surveillance (12) Anemia: Code(s): D64.9 - Anemia, unspecified Category: Medical Qualifiers: Anemia type: unspecified type Qualified Code(s): D64.9 - Anemia, unspecified Plan: Her H/H have improved/corrected and have remained normal on her recent labs This was most likely due to GI bleeding related to her previous dual antiplatelet therapy and she required blood transfusion of 2 units of PRBC in January 2021 and 1 more unit in April 2021; also s/p IV iron in March 2021 Continue Ferrous Sulfate 325 mg BID Follow up with hematology as scheduled (13) Gout: Code(s): M10.9 - Gout, unspecified Category: Medical Qualifiers: Chronicity: unspecified Gout etiology: unspecified cause Gout site: unspecified site Qualified Code(s): M10.9 - Gout, unspecified Plan: Asymptomatic; her serum uric acid level was still elevated at 8.2 on her recent labs (was at 9.3 back in February 2024) Reinforced low purine diet Continue Colcrys 0.6 mg twice a day, Indomethacin 25 mg twice a day with food as needed (14) Hypomagnesemia: Code(s): E83.42 - Hypomagnesemia Category: Medical Plan: Corrected - will continue to monitor her serum magnesium level regularly (15) GERD without esophagitis: Code(s): K21.9 - Gastro-esophageal reflux disease without esophagitis Category: Medical Plan: Dietary restrictions reinforced Continue Lansoprazole 30 mg daily; may take some OTC Famotidine 20 mg PRN for symptomatic relief Follow-up with GI as scheduled (16) Vitamin D deficiency: Code(s): E55.9 - Vitamin D deficiency, unspecified Category: Medical Plan: Continue Vitamin D3 5000 units once a day (17) Chronic low back pain with right-sided sciatica: Code(s): M54.41 - Lumbago with sciatica, right side; G89.29 - Other chronic pain Category: Medical Qualifiers: Back pain laterality: right Qualified Code(s): M54.41 - Lumbago with sciatica, right side; G89.29 - Other chronic pain Plan: Lumbar spine x-rays done back in April 2022 revealed (+) multilevel lumbar spondylosis and facet arthritis, with no acute changes or fractures noted Reinforced activity and weight-lifting restrictions Due to her increasing low back pain and right lumbar radiculopathy, she was sent for repeat lumbar spine x-rays and also for SI joint x-rays for further evaluation a few months ago (March 2024), which revealed (+) no acute compression fracture, with a slight retrolisthesis L1-2 and anterolisthesis L4-5 not appreciably changed from previous imaging. There is also extensive degenerative disc space narrowing L5-S1 that appears to be slightly increased from previous Have advised patient to consider referral to pain management if her low back pain continues to progress (18) Right shoulder pain: Code(s): M25.511 - Pain in right shoulder Category: Medical Qualifiers: Chronicity: unspecified Qualified Code(s): M25.511 - Pain in right shoulder Plan: Suspect right shoulder bursitis and/or impingement syndrome X-rays of the right shoulder done back in March 2024 did reveal (+) degenerative changes as well as findings suggestive of calcific tendinitis Follow up with orthopedics as scheduled (19) Right elbow pain: Code(s): M25.521 - Pain in right elbow Category: Medical Plan: X-rays of the right elbow done back in March 2024 also revealed (+) degenerative changes in the elbow with no acute process Patient states that her elbow pain has actually subsided a lot lately and is not bothering her as much as it used to (20) Anxiety: Code(s): F41.9 - Anxiety disorder, unspecified Category: Medical Plan: States that her Citalopram is helping with her anxiety (21) Depression: Code(s): F32.9 - Major depressive disorder, single episode, unspecified Category: Medical Qualifiers: Active/Remission status: currently active Depression Type: major depressive disorder Major depression episode severity: unspecified Major depression recurrence: recurrent Qualified Code(s): F33.9 - Major depressive disorder, recurrent, unspecified Plan: Continue Citalopram 40 mg QD and Mirtazapine 15 mg Q HS Follow-up with Psychiatry as scheduled - she is now seeing a nurse practitioner as her previous psychiatrist retired from active practice (22) Obesity (BMI 30-39.9): Code(s): E66.9 - Obesity, unspecified Category: Medical Plan: Reinforced diet; exercise and weight loss are unrealistic in this patient as she is currently experiencing a lot of physical and vascular symptoms and has multiple comorbidities that significantly limits her activity and exercise tolerance Plan Follow up in 3 months Orders: Orders Comprehensive [place]. Panel Fast 3 Months E78.00 - Pure hypercholesterolemia, unspecified Lipid Panel 3 Months E78.00 - Pure hypercholesterolemia, unspecified Microalbumin, Random (w Creat) 3 Months E11.9 - Type 2 diabetes mellitus without complications UA CC w/rflx Micro + Cult 3 Months R30.0 - Dysuria Vitamin D 25-OH Total 3 Months E55.9 - Vitamin D deficiency, unspecified Vitamin B12 and Folate 3 Months E53.8 - Deficiency of other specified B group vitamins Complete Blood Count Auto Diff 3 Months D64.9 - Anemia, unspecified Hemoglobin A1c 3 Months E11.9 - Type 2 diabetes mellitus without complications TSH reflex Free T4 3 Months E78.00 - Pure hypercholesterolemia, unspecified
--- OUTSIDE RECORDS SUMMARY | 2025-05-04 15:18 | XMS_ITS | Encounter Summary ---
Author Organization [facility] Address [facility] access hospital [address] [place] [address] Phone Care Team Providers Care Pullman Car Repairer Name Role Phone Jamel Mansfield MD Primary Care Provider +1 -[phone] Encounter Details Date Type Department Care Team (Late st Contact Info) Description 07/23/2020 Procedure Pass [facility] [address] [place] [address] Social History Tobacco Use Types Packs/Day Years [...] 1:00 PM EST Office Visit [facility] [address] [facility] 3rd Floor, [address] [place] [address] Darryl Khan MD [address] [place] [address] [email or web address] documented as of this encounter Visit Diagnoses Not on filedocumented in this encounter Additional Health Concerns Infection Onset Date Last Indicated Resolved Time CoV-Risk Comment:Per note documentation 09/14/2022 09/14/2022 1:18 PM EDT documented as of this encounter Care Teams Pullman Car Repairer Relationship Specialty Start Date End Date Jamel Mansfield MD [address] [place] [address] [place] [address] PCP - General 03/04/17 documented as of this encounter Additional Source Comments The information contained in this document represents components of the legal health record. It is not the complete legal health record.[facility]
--- OUTSIDE RECORDS SUMMARY | 2025-05-04 15:18 | XMS_ITS | Clinical Summary ---
Author Organization [facility] Address [address] [place] [address] [address] [place] [address] Phone Care Team Providers Care Brand Marketing Coordinator Name Role Phone Jamel Mansfield MD Primary Care Provider +1 [phone] Allergies Active Allergy Reactions Criticality Noted Date Comments Iodinated Contrast Media Hives 09/04/2017 Penicillins Hives 09/04/2017 Medications lansoprazole (PREVACID) 30 MG capsule Take 1 capsule by mouth daily. Active traZODone (DESYREL) 50 MG tablet Orally Once a day Active montelukast (SINGULAIR) 10 mg tablet Take 1 tablet by mouth every evening. Active ferrous sulfate 325 mg (65 mg paiute-shoshone iron) tablet Take 325 mg by mouth [...] daily. Active cyanocobalamin (VITAMIN B-12) 500 mcg/spray [place] 500 mcg by Right Nare route. Active [...] a surgical candidate for valve repair through [facility]. She declined obtaining a second opinion, she is not interested in undergoing open heart surgery at her age. We did discuss potential for TAVR versus enrollment in [place] trial with possible TMVR. The exact inclusion [...] torsemide 10 mg fdaily -Patient was at [facility] at the end of July with [...] obtain a lipid panel from the [facility] system. Goal LDL is less than [...] of claudication. I recommended she follow-up with [facility] vascular who has been managing this [...] at her PCP office in the [facility] system. I have discussed with her that given her extensive peripheral arterial disease, she should have an LDL of less than 70. We will try to obtain a lipid panel from [facility]. She is on 40 mg of [...] Type Department Care Team Description 05/01/2025 Telephone [facility] [address] 3rd Floor, [address] [place] [address] Wiliam Briggs 04/24/2025 Orders Only [facility] [address] Floor, [address] [place] [address] Ashley Hernandez CNP 04/24/2025 Telephone [facility] [address], [address] [place] [address] Ashley Hernandez, [place] 02/22/2025 Refill [facility] [address] Floor, [address] [place] [address] Vanesa García PA-C Medication Refill 02/16/2025 3:20 PM EDT Office Visit [facility] [address] 3[address] Floor, [address] [place] [address] Darryl Khan MD Nonrheumatic mitral valve stenosis [...] Description 05/31/2025 1:00 PM EST Office Visit [facility] [address] [facility] 3rd Floor, [address] [place] [address] Darryl Khan MD [address] [place] [address] [email or web address] Health Maintenance Due Date Last [...] EST) SODIUM 139 133 - 146 mmol/L [facility] CHLORIDE 105 96 - 108 mmol/L [facility] POTASSIUM 4.0 3.3 - 5.1 mmol/L [facility] CO2 22 21 - 35 mmol/L [facility] BUN 33(H) 6 - 19 mg/dL [facility] CREATININE 1.60(H) 0.5 - 1.5 mg/dL [facility] GLUCOSE 189(H) 70 - 99 mg/dL [facility] CALCIUM 9.6 8.4 - 10.3 mg/dL [facility] EGFR 32(L) >59 mL/min/1.7 3m2 [facility] Comment:Estimated glomerular filtration rate calculated using the CKD-EPI refit equation. ANION GAP 16 10 - 20 mmol/L [facility] Blood 06/21/2024 1:18 PM EST 06/21/2024 1:20 PM EST us Gaudencio Whitfield MD LAB BLOOD BKR ORDERABLES Final R esult [facility] [address] [place] [address] * (ABNORMAL) Hemoglobin A1c (09/15/2022 5:46 AM EDT) HEMOGLOBIN A1C 6.1(H) 4.3 - 5.8 % [facility] Blood 09/15/2022 5:46 AM EDT 09/15/2022 6:11 AM EDT us Kayla Alfred DO LAB BLOOD BKR ORDERABLES Ofelia l Result [facility] [address] [place] [address] from Last 3 Months or Most Recently Relevant to Health Maintenance Insurance MEDIC[place] PART A [place] [id number] [facility] MEDICARE SUPPLEMENT [address] [place] [id number] MEDICARE PART A & B MEDICARE SUPPLEMENT [address] [place] [id number] MEDICARE PART A & B MEDICARE SUPPLEMENT MEDICARE PART A & B MEDICARE SUPPLEMENT MEDICARE PART A & B MEDICARE SUPPLEMENT MEDICARE PART A & B MEDICARE SUPPLEMENT MEDICARE PART A & B MEDICARE SUPPLEMENT MEDICARE PART A & B [facility] MEDICARE SUPPLEMENT MEDICARE PART A & B [facility] MEDICARE SUPPLEMENT Advance Directives For more information, please contact: [phone] (9AM - 5PM [facility], Wednesday-Wednesday) Documents on File Type Date Recorded Patient Conference Translator Expl anation Power of Tube Worker Healthcare Proxy 08/20/2020 Healthcare Proxy * Full Code (Latest Code Status on File) Date Activated Date Inactivated Comments 09/14/2022 3:33 PM Question Answer Comments Code Status Confirmed With: Patient Care Teams Brand Marketing Coordinator Relationship Specialty Start Date End Date Jamel Mansfield MD [address] [place] [address] [address] [place] [address] PCP - General 03/04/17 Additional Source Comments The information contained in this document represents components of the legal health record. It is not the complete legal health record.[facility]
--- OUTSIDE RECORDS SUMMARY | 2025-05-04 15:18 | XMS_ITS | Clinical Summary ---
Author Organization [facility] Address [address] [place] [address] Care Team Providers Care Building Code Inspector Name Role Phone Jamel Mansfield MD Primary Care Provider [phone]- [phone] Social History Tobacco Use Types Packs/Day Years [...] age to complete this topic Insurance Medicare [facility] Care Teams Building Code Inspector Relationship Specialty Start Date End Date Jamel Mansfield MD [address] [place] [address] DRIVE [address] [place] [address] PCP - General Internal Medicine 10/08/22
--- OUTSIDE RECORDS SUMMARY | 2025-05-04 15:18 | XMS_ITS | Encounter Summary ---
Author Organization [facility] Address [facility] [address] [place] [address] Phone Care Team Providers Care Machine Heel Seat Fitter Name Role Phone Jamel Mansfield MD Primary Care Provider [phone] [phone] Encounter Details Date Type Department Care Team (Late st Contact Info) Description 04/24/2020 Procedure Pass [facility] [address] [place] [address] Social History Tobacco Use Types Packs/Day Years [...] 1:00 PM EST Office Visit [facility] [address] [place] [address] 3rd Floor, [address] [place] [address] Darryl Khan MD [address] [place] [address] [email or web address] documented as of this encounter Visit Diagnoses Not on filedocumented in this encounter Additional Health Concerns Infection Onset Date Last Indicated Resolved Time CoV-Exposed Comment:Close contact 04/30/2020 05/05/2020 05/14/2020 1:25 AM EST CoV-Risk Comment:Per note documentation 09/14/2022 09/14/2022 3 1:18 PM EDT documented as of this encounter Care Teams Machine Heel Seat Fitter Relationship Specialty Start Date End Date Jamel Mansfield MD [address] [place] [address] [place] [address] PCP - General 03/04/17 documented as of this encounter Additional Source Comments The information contained in this document represents components of the legal health record. It is not the complete legal health record.[facility]
--- OUTSIDE RECORDS SUMMARY | 2025-05-04 15:18 | XMS_ITS | Encounter Summary ---
Author Organization [facility] Address [facility] [address] [place] [address] Phone Care Team Providers Care Synchronizer Name Role Phone Jamel Mansfield MD Primary Care Provider +1 -[phone] Encounter Details Date Type Department Care Team (Late st Contact Info) Description 07/16/2021 Procedure Pass [facility] [address] [place] [address] Social History Tobacco Use Types Packs/Day Years [...] 1:00 PM EST Office Visit [facility] [address] [facility] 3rd Floor, [address] [place] [address] Darryl Khan MD [address] [place] [address] [email or web address] documented as of this encounter Visit Diagnoses Not on filedocumented in this encounter Additional Health Concerns Infection Onset Date Last Indicated Resolved Time CoV-Risk Comment:Per note documentation 09/14/2022 09/14/2022 1:18 PM EDT documented as of this encounter Care Teams Synchronizer Relationship Specialty Start Date End Date Jamel Mansfield MD [address] [place] [address] [place] [address] PCP - General 03/04/17 documented as of this encounter Additional Source Comments The information contained in this document represents components of the legal health record. It is not the complete legal health record.[facility]
--- OUTSIDE RECORDS SUMMARY | 2025-05-04 15:18 | XMS_ITS | Encounter Summary ---
Author Organization [facility] Address [facility], [address] [place] [address] Phone Care Team Providers Care Business Support Professional Name Role Phone Jamel Mansfield MD Primary Care Provider [phone] -[phone] Encounter Details Date Type Department Care Team (Late st Contact Info) Description 09/25/2022 Procedure Pass [facility], Ct Scan - [address] [address] Social History Tobacco Use Types Packs/Day Years [...] Description 05/31/2025 1:00 PM EST Office Visit [facility] [address] [facility], [address] [place] [address] Darryl Khan MD [address] [place] [address] [email or web address] documented as of this encounter Visit Diagnoses Not on filedocumented in this encounter Care Teams Business Support Professional Relationship Specialty Start Date End Date Jamel Mansfield MD [address] [place] [address] [address] PCP - General 03/04/17 documented as of this encounter Additional Source Comments The information contained in this document represents components of the legal health record. It is not the complete legal health record.[facility]
--- OUTSIDE RECORDS SUMMARY | 2025-05-04 15:18 | XMS_ITS | Encounter Summary ---
Author Organization [facility] Address [facility] [address] [place] [address] Phone Care Team Providers Care Primary School Teacher Name Role Phone Jamel Mansfield MD Primary Care Provider +1 -[phone] Encounter Details Date Type Department Care Team (Late st Contact Info) Description 09/28/2022 Procedure Pass [facility] [address] [place] [address] Social History Tobacco Use Types Packs/Day Years [...] Description 05/31/2025 1:00 PM EST Office Visit [facility] [address], [address] [place] [address] Darryl Khan MD [address] [place] [address] [email or web address] documented as of this encounter Visit Diagnoses Not on filedocumented in this encounter Care Teams Primary School Teacher Relationship Specialty Start Date End Date Jamel Mansfield MD [address] [place] [address] [address] PCP - General 03/04/17 documented as of this encounter Additional Source Comments The information contained in this document represents components of the legal health record. It is not the complete legal health record.[facility]
--- OUTSIDE RECORDS SUMMARY | 2025-05-04 15:18 | XMS_ITS | Encounter Summary ---
Author Organization [facility] Address [address] [place] [address] Phone Care Team Providers Care Water Pollution Control Inspector Name Role Phone Jamel Mansfield MD Primary Care Provider +1 -[phone] Encounter Details Date Type Department Care Team (Late st Contact Info) Description 04/24/2025 Orders Only [facility] 3[address], [address] [place] [address] Ashley Hernandez, ROCK CLIMBING INSTRUCTOR [address] [place] [address] [email or web address] Social History Tobacco Use Types Packs/Day Years [...] Description 05/31/2025 1:00 PM EST Office Visit [facility] [address] [facility] 3rd Floor, [address] [place] [address] Darryl Khan MD [address] [place] [address] [email or web address] documented as of this encounter Visit Diagnoses Not on filedocumented in this encounter Care Teams Water Pollution Control Inspector Relationship Specialty Start Date End Date Jamel Mansfield MD [address] [place] [address] [address] PCP - General 03/04/17 documented as of this encounter Additional Source Comments The information contained in this document represents components of the legal health record. It is not the complete legal health record.[facility]
--- OUTSIDE RECORDS SUMMARY | 2025-05-04 15:18 | XMS_ITS | Patient Health Record ---
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, bilateral legs (I70.203) Active [...] Ordered Date Performed Result Body Sit e 22163-KPYEJDA NAIL, 6 OR MORE 02/07/2025 N/A 33327-GEHC SKIN LESIONS, 2 TO 4 02/07/2025 N/A Encounters Encounter Location Date Provider Diagnosis [facility] [address] [address] 02/07/2025 Carolyn Fonseca Type 2 diabetes mellitus with diabetic polyneuropathy E11.42 ; Tinea unguium B35.1 ; Other hammer toe(s) (acquired), right foot M20.41 and Other hammer toe(s) (acquired), left foot M20.[address] [facility] [address] 04/19/2025 Carolyn Fonseca Type 2 diabetes mellitus [...] *Uric Acid, Serum 10/10/2014 *Sedimentation Rate-Westergren 5 80547-DYRFIEF NAIL, 6 OR MORE 02/07/2025 89082-UMFCOOT NAIL, 1-5 09/13/2014 24197-VQCU SKIN LESIONS, 2 TO 4 02/08/20 25 21675-SWDH SKIN LESIONS, 2 TO 4 07/23/19 21 82842-CTTM SKIN LESIONS, 2 TO 4 10/22/19 21 11841-ZMPB SKIN LESIONS, 2 TO 4 01/14/20 21 46478-QCDH SKIN LESIONS, 2 TO 4 04/23/20 21 31576-ENDK SKIN LESIONS, 2 TO 4 08/07/19 22 49287, I0013-AEGLS/INJECT, JOINT/BURSA 0 10/24/2015 33954, J0702- Neuroma/Injection 05/31/19 15 86535, J0702- Neuroma/Injection 10/26/19 15 Next Appt Details Provider Name:Carolyn Sabine motta, 07/18/2025 03:00:00 PM, [address] [facility], [place], [address], Insurance Providers Payer Name Payer Address Payer Phone Subscriber Number Group Number Insured Name Patient Relationship to Insured Coverage Start Date Coverage End Date Medicare [facility] [address] [place] [address] [id number] Alice Martinez Self - patient is the [facility] [address] [facility] [place] [address] [phone] [id number] Martinez Alice Self - patient is [...] legs Guille 12/10/2020 Hospitalization History Reason Date(Month/Year) [facility] vascular sx 08/14/20-08/21/20 [facility]- Bunion surgery left foot 08/16/14
--- OUTSIDE RECORDS SUMMARY | 2025-05-04 15:18 | XMS_ITS | Encounter Summary ---
Author Organization [facility] Address [address] [place] [address] Phone Care Team Providers Care Winding Inspector Name Role Phone Jamel Mansfield MD Primary Care Provider +1 -[phone] Reason for Referral * MRI/CAT Scan - Closed Specialty Diagnoses / Procedures Referred By Contac t Referred To Contact Radiology Diagnoses Peripheral vascular disease, unspecified Procedures CT Angio Abdominal Aorta and Bilateral Lower Extremity Runoff Ofelia Villasenor MD [address] [address] Phone: tel: fax: Referral ID Status Reason Start Date Expiration Date Visits Re quested Visits Authorized [id number] Closed 05/09/2019 05/08/2020 1 1 Encounter Details Date Type Department Care Team (Latest Contact Info) Description 05/09/2019 Transcribe Orders Virtual Department [address] [place] [address] Ofelia Villasenor MD [address] [address] Peripheral vascular disease, unspecified (Primary Dx) Social [...] Description 05/31/2025 1:00 PM EST Office Visit [facility] 3rd [facility], [address] [place] [address] Darryl Khan MD [address] [place] [address] [email or web address] documented as of this encounter Results * [...] identified. TOTAL CTDIvol: 22.00 mGy POS - [id number] Narrative 05/30/2019 7:22 PM EST COMPARISON: None [...] stenosisidentified. TOTAL CTDIvol: 22.00 mGy POS - [id number] us Ofelia Villasenor MD IMG CT ABD/PELVIS [...] documented as of this encounter Care Teams Winding Inspector Relationship Specialty Start Date End Date Jamel Mansfield MD [address] [place] [address] Dr Pineda, [place] [address] PCP - General 03/04/17 documented as of this encounter Additional Source Comments The information contained in this document represents components of the legal health record. It is not the complete legal health record.[facility]
--- OUTSIDE RECORDS SUMMARY | 2025-05-04 15:18 | XMS_ITS | Patient Health Record ---
Author Organization [facility] Address [address] [place] [id number] Care Team Providers Care Mails Supervisor Name Role Phone Jamel Mansfield MD Primary Care Provider Steven Irving [phone] Allergies Allergen (clinical drug ingredient) Drug/Non Drug Allergy documented on EMR Reaction Allergy Type Onset Date Status contrast dye (uncoded) Unknown Allergy Active Penicillin Unknown Drug Allergy Active Results Component Value Reference Range Notes CT abdomen pelvis wo con Reviewed date:03/20/2025 01:41:13 PM Interpretation: Performing Lab: Notes/Report: [facility] [address] [place] [id number] Scan Report Signed Patient: Alice Carter MR#: [id number] [birth year] : 1940 Acct:[id number] Age/Sex: 83 / F ADM Date: 06/02/24 Loc: HO.CT Attending Dr: Steven Haji MD Ordering Physician: Steven Haji MD Date of Service: 06/02/24 Procedure(s): CT abdomen pelvis wo IV con Accession Number(s): [id number] cc: Jamel Mansfield MD; Steven Haji MD Report Number: [id number]: Total DLP = 756.00 mGy-cm EXAMINATION: CT [...] by: Steven Casey MD 06/05/2024 08:42 AM [facility] Dictated By: Steven Casey MD Signed By: <Electronically signed by Steven Casey MD in OV> 06/05/24 0842 DD/ 1530 TD/TT: 06/02/24 1738 Head Athletic Trainer/Strength Coach: Reason For Referral No Information Medications Medication [...] Status W/U Status Risk Notes Problem Constipation (36402077) Constipation (K59.00) Active confirmed Problem Diarrhea (90947577) Diarrhea, unspecified (R19.7) Active confirmed Problem Gastroesophageal reflux disease (654282551) Gastroesophageal reflux disease, esophagitis presence not specified (K21.9) Active confirmed Problem Abnormal feces (045740913) Heme + stool (R19.5) Active confirmed Problem Anemia (511785999) Anemia (D64.9) Active confir med Problem Iron deficiency anemia due to chronic blood loss (473451678) Iron deficiency anemia due to chronic blood loss (D50.0) Active confirmed Problem Microcytic anemia (202503996) Microcytic anemia (D50.9) Active confirmed Problem Angiodysplasia of colon (52675176) Angiodysplasia of colon (K55.20) Active confirmed Problem Iron deficiency anemia (06590839) Iron deficiency anemia, unspecified iron deficiency anemia type (D50.9) Active confirmed Problem Diarrhea (53808463) Diarrhea, unspecified type (R19.7) Active confirmed Problem Chronic diarrhea (193798355) Chronic diarrhea (K52.9) Active confirmed Problem Irritable bowel syndrome (22557340) 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 [place] [phone] 03/20/2025 Steven Haji Constipation K59.00 ; Iron [...] COLONOSCOPY 01/27/2022 Next Appt Details Provider Name:Steven aHji , 03/20/2026 01:00:00 PM, [address] [place] [address], [address], [place], [address], Insurance Providers Payer Name Payer Address Payer Phone Subscriber Number Group Number Insured Name Patient Relationship to Insured Coverage Start Date Coverage End Date MEDICARE OF [place] [address] [place] [address] [id number] ALICE CARTER Self - patient is the insured [facility] [address] [place] [phone] [id number] ALICE CARTER Self - patient is the [...] stenosis. She is being followed by a talent acquisition administrator Hospitalized 01/2022 for recu rrent anemia- Hgb [...] as described by the patient-Dr. Siddiqi at [facility] 08/14/2020 and 11/2020 Hospitalization History Reason Date(Month/Year) Hospitalized for 2 weeks due to pneumonia, CHF, and Afib, and then rehab for 2 weeks. Spring 2022
--- OUTSIDE RECORDS SUMMARY | 2025-05-04 15:18 | XMS_ITS | Encounter Summary ---
Author Organization [facility] Address [address] [place] [address] Phone Care Team Providers Care Business Intelligence Developer Name Role Phone Jamel Mansfield MD Primary Care Provider [phone] Encounter Details Date Type Department Care Team (Late st Contact Info) Description 05/01/2025 Telephone [facility] [address] 3rd Floor, [address] [place] [address] Wiliam Briggs [email or web address] Social History Tobacco Use Types Packs/Day Years [...] Pt has a cardiac CT scheduled at [facility] and she needs labs ordered I received this message from [facility] not sure what labs she needs. documented in this encounter Plan of Treatment Upcoming Encounters Date Type Department Care Team (Late st Contact Info) Description 05/31/2025 1:00 PM EST Office Visit [facility] [address] [place] [address] 3rd Floor, [address] [place] [address] Darryl Khan MD [address] [place] [address] [email or web address] Scheduled Orders Name Type Priority Associated Diagnoses Orde r Schedule Basic Metabolic Panel (BMP) Lab Routine Nonrheumatic mitral valve stenosis Expected: 05/01/2025, Expires: 05/01/2026 documented as of this encounter Visit Diagnoses Diagnosis Nonrheumatic mitral valve stenosis- Primary documented in this encounter Care Teams Business Intelligence Developer Relationship Specialty Start Date End Date Jamel Mansfield MD [address] [place] [address] Dr Brito [address] [place] [address] PCP - General 03/04/17 documented as of this encounter Additional Source Comments The information contained in this document represents components of the legal health record. It is not the complete legal health record.[facility]
--- OUTSIDE RECORDS SUMMARY | 2025-05-04 15:18 | XMS_ITS | Encounter Summary ---
Author Organization [facility] [place] Address [facility] [address] [place] [address] Phone Care Team Providers Care House Registry Rn Name Role Phone Jamel Mansfield MD Primary Care Provider [phone] Encounter Details Date Type Department Care Team (Late st Contact Info) Description 08/13/2022 Procedure Pass [facility] [address] [place] [address] Social History Tobacco Use Types Packs/Day Years [...] Office Visit [facility] [address] [place] [address] [address]rd Floor, [address] [place] [address] Darryl Khan MD [address] [place] [address] documented as of this encounter Visit Diagnoses Not on filedocumented in this encounter Additional Health Concerns Infection Onset Date Last Indicated Resolved Time CoV-Risk Comment:Per note documentation 09/14/2022 09/14/2022 1:18 PM EDT documented as of this encounter Care Teams House Registry Rn Relationship Specialty Start Date End Date Jamel Mansfield MD [address] [facility] [facility] [place] [address] PCP - General 03/04/17 documented as of this encounter Additional Source Comments The information contained in this document represents components of the legal health record. It is not the complete legal health record.[facility] [place]
--- OUTSIDE RECORDS SUMMARY | 2025-05-04 15:18 | XMS_ITS | Encounter Summary ---
Author Organization [facility] Address [facility] [address] [place] [address] Phone Care Team Providers Care Electrotype Molder Name Role Phone Jamel Mansfield MD Primary Care Provider [phone] Encounter Details Date Type Department Care Team (Late st Contact Info) Description 02/16/2022 Procedure Pass [facility] [address] [place] [address] Social History Tobacco Use Types Packs/Day Years [...] 1:00 PM EST Office Visit [facility] [address] [place] [address] [address]rd Floor, [address] [place] [address] Darryl Khan MD [address] [place] [address] [email or web address] documented as of this encounter Visit Diagnoses Not on filedocumented in this encounter Additional Health Concerns Infection Onset Date Last Indicated Resolved Time CoV-Risk Comment:Per note documentation 09/14/2022 09/14/2022 1:18 PM EDT documented as of this encounter Care Teams Electrotype Molder Relationship Specialty Start Date End Date Jamel Mansfield MD [address] [place] [address] [place] [address] PCP - General 03/04/17 documented as of this encounter Additional Source Comments The information contained in this document represents components of the legal health record. It is not the complete legal health record.[facility]
--- OUTSIDE RECORDS SUMMARY | 2025-05-04 15:18 | XMS_ITS | Encounter Summary ---
Author Organization [facility] Address [facility] hospital [address] [place] [address] Phone Care Team Providers Care Calculation Clerk Name Role Phone Jamel Mansfield MD Primary Care Provider [phone] [phone] Encounter Details Date Type Department Care Team (Late st Contact Info) Description 02/16/2024 Procedure Pass [facility] [address] [place] [address] Social History Tobacco Use Types Packs/Day Years [...] Description 05/31/2025 1:00 PM EST Office Visit [facility] [address] [place] [address] [address]rd Floor, [address] [place] [address] Darryl Khan MD [address] [place] [address] [email or web address] documented as of this encounter Visit Diagnoses Not on filedocumented in this encounter Care Teams Calculation Clerk Relationship Specialty Start Date End Date Jamel Mansfield MD [address] [place] [address] [address] PCP - General 03/04/17 documented as of this encounter Additional Source Comments The information contained in this document represents components of the legal health record. It is not the complete legal health record.[facility]
== END 2025-05-04 14:31 | disposition home or self-care (01) ==
LOC: HO.HMCH 13:37
PROVIDERS: PCP Internal Medicine; Visit Provider Internal Medicine
DX: E78.00 Pure hypercholesterolemia, unspecified (principal); E11.22 Type 2 diabetes mellitus with diabetic chronic kidney disease; N18.32 Chronic kidney disease, stage 3b; N18.31 Chronic kidney disease, stage 3a; I50.32 Chronic diastolic (congestive) heart failure; I38 Endocarditis, valve unspecified; I10 Essential (primary) hypertension; J44.9 Chronic obstructive pulmonary disease, unspecified; I47.10 Supraventricular tachycardia, unspecified; I49.1 Atrial premature depolarization; I73.9 Peripheral vascular disease, unspecified; E05.20 Thyrotoxicosis with toxic multinodular goiter without thyrotoxic crisis or storm; D64.9 Anemia, unspecified; M10.9 Gout, unspecified; E83.42 Hypomagnesemia; K21.9 Gastro-esophageal reflux disease without esophagitis; E55.9 Vitamin D deficiency, unspecified; M54.41 Lumbago with sciatica, right side; G89.29 Other chronic pain; M25.511 Pain in right shoulder

== ENCOUNTER → 2025-05-04 13:36 | Outpatient (BNVA) | payer MEDICARE, OTHER, SELFPAY | PROVIDERS: PCP Internal Medicine; Visit Provider Internal Medicine | DX: I10 Essential (primary) hypertension (principal); E78.00 Pure hypercholesterolemia, unspecified; E11.22 Type 2 diabetes mellitus with diabetic chronic kidney disease; N18.32 Chronic kidney disease, stage 3b; I50.32 Chronic diastolic (congestive) heart failure; J44.9 Chronic obstructive pulmonary disease, unspecified; I38 Endocarditis, valve unspecified; I47.10 Supraventricular tachycardia, unspecified; I49.1 Atrial premature depolarization; I73.9 Peripheral vascular disease, unspecified; E05.20 Thyrotoxicosis with toxic multinodular goiter without thyrotoxic crisis or storm; D64.9 Anemia, unspecified; M10.9 Gout, unspecified; K21.9 Gastro-esophageal reflux disease without esophagitis; E83.42 Hypomagnesemia; M54.41 Lumbago with sciatica, right side; M25.511 Pain in right shoulder; M25.521 Pain in right elbow; G89.29 Other chronic pain; F33.9 Major depressive disorder, recurrent, unspecified; Z13.31 Encounter for screening for depression; Z79.899 Other long term (current) drug therapy; Z79.01 Long term (current) use of anticoagulants | CPT/HCPCS: 96127; 99212 ==